=== PATIENT | female | born 1960 | race Caucasian/White ===

== ENCOUNTER 2019-12-01 12:22 | Outpatient (REF) | payer MEDICARE, MEDICAID, SELFPAY ==
[2019-12-01 14:43] LABS: Creatinine Urine 275.76 mg/dL; Microalbum/Creatinine Ratio Ur 5.4 ug/mg cr
[2019-12-01 14:52] LABS: Estimated Average Glucose 131 mg/dL; Hemoglobin A1c % 6.2 %
[2019-12-01 15:20] LABS: Alanine Aminotransferase 29 U/L (0-31); Albumin Level 4.3 g/dL (3.5-5.0); Alkaline Phosphatase 65 U/L (39-117); Anion Gap 15 (12-20); Aspartate Amino Transferase 22 U/L (5-31); Bilirubin Total 0.5 mg/dL (0.0-1.0); Blood Urea Nitrogen 18 mg/dL (9-16); Calcium 9.6 mg/dL (8.4-10.2); Carbon Dioxide 31 mmol/L (22-29); Chloride 99 mmol/L (96-108); Cholesterol 133 mg/dL; Estimated Glomerular Filt Rate > 60; Glucose Fasting 111 mg/dL (60-99); HDL Cholesterol 48 mg/dL; LDL Cholesterol Calculated 65 mg/dl; Potassium 4.5 mmol/l (3.3-5.1); Sodium 140 mmol/L (135-145); Total Protein 6.9 g/dL (6.5-8.0); Triglycerides 104 mg/dL
== END 2019-12-01 12:23 | disposition home or self-care (01) ==
LOC: HO.HMGCLDS 12:22
PROVIDERS: PCP Internal Medicine; Visit Provider Internal Medicine
DX: J45.30 Mild persistent asthma, uncomplicated (principal); E78.2 Mixed hyperlipidemia; E11.9 Type 2 diabetes mellitus without complications; I10 Essential (primary) hypertension
CPT/HCPCS: 80053; 80061; 82043; 83036

== ENCOUNTER 2020-04-15 10:51 | Outpatient (REF) | payer MEDICARE, MEDICAID, SELFPAY ==
[2020-04-15 14:28] LABS: Alanine Aminotransferase 32 U/L (0-31); Albumin Level 4.2 g/dL (3.5-5.0); Alkaline Phosphatase 63 U/L (39-117); Anion Gap 16 (12-20); Aspartate Amino Transferase 23 U/L (5-31); Bilirubin Total 0.7 mg/dL (0.0-1.0); Blood Urea Nitrogen 18 mg/dL (9-16); Calcium 9.4 mg/dL (8.4-10.2); Carbon Dioxide 28 mmol/L (22-29); Chloride 100 mmol/L (96-108); Cholesterol 149 mg/dL; Estimated Average Glucose 143 mg/dL; Estimated Glomerular Filt Rate > 60; Glucose Fasting 119 mg/dL (60-99); HDL Cholesterol 49 mg/dL; Hemoglobin A1c % 6.6 %; LDL Cholesterol Calculated 87 mg/dl; Potassium 4.8 mmol/L (3.3-5.1); Sodium 139 mmol/L (135-145); Total Protein 6.8 g/dL (6.5-8.0); Triglycerides 66 mg/dL
[2020-04-15 14:37] LABS: Creatinine Urine 250.29 mg/dL; Microalbum/Creatinine Ratio Ur 7.5 ug/mg cr
== END 2020-04-15 10:52 | disposition home or self-care (01) ==
LOC: HO.HMGCLDS 10:51
PROVIDERS: PCP Internal Medicine; Visit Provider Internal Medicine
DX: E78.5 Hyperlipidemia, unspecified (principal); E11.9 Type 2 diabetes mellitus without complications; I10 Essential (primary) hypertension
CPT/HCPCS: 36415; 80053; 80061; 82043; 83036

== ENCOUNTER 2020-10-21 13:07 | Outpatient (REF) | payer MEDICARE, MEDICAID, SELFPAY ==
[2020-10-21 14:26] LABS: Hematocrit 39.4 % (37-47); Hemoglobin 12.6 g/dl (12.0-16.0); Mean Corpuscular Hemoglobin 29.4 pg (27.0-33.0); Mean Corpuscular Volume 92.1 fL (80-98); Mean Platelet Volume 10.6 fL (9.4-12.3); Platelet Count 279 X10*3/uL (160-400); Red Blood Count 4.28 X10*6/uL (4.20-5.50); Red Cell Distribution Width 12.9 % (11.0-16.0); White Blood Count 7.7 X10*3/uL (4.8-10.8)
[2020-10-21 14:45] LABS: Creatinine Urine 147.99 mg/dL; Microalbum/Creatinine Ratio Ur 5.4 ug/mg cr
[2020-10-21 14:46] LABS: Estimated Average Glucose 131 mg/dL; Hemoglobin A1c % 6.2 %
[2020-10-21 14:54] LABS: Alanine Aminotransferase 39 U/L (0-31); Alkaline Phosphatase 63 U/L (39-117); Anion Gap 15 (12-20); Aspartate Amino Transferase 33 U/L (5-31); Bilirubin Total 0.5 mg/dL (0.0-1.0); Blood Urea Nitrogen 32 mg/dL (9-16); Calcium 9.9 mg/dL (8.4-10.2); Carbon Dioxide 29 mmol/L (22-29); Chloride 102 mmol/L (96-108); Cholesterol 112 mg/dL; Estimated Glomerular Filt Rate 55; Glucose Fasting 86 mg/dL (60-99); HDL Cholesterol 40 mg/dL; LDL Cholesterol Calculated 56 mg/dl; Potassium 4.6 mmol/L (3.3-5.1); Sodium 141 mmol/L (135-145); Total Protein 6.3 g/dL (6.5-8.0); Triglycerides 81 mg/dL
== END 2020-10-21 13:08 | disposition home or self-care (01) ==
LOC: HO.HMGCLDS 13:07
PROVIDERS: PCP Internal Medicine; Visit Provider Internal Medicine
DX: E11.9 Type 2 diabetes mellitus without complications (principal); E78.5 Hyperlipidemia, unspecified; F31.9 Bipolar disorder, unspecified; I10 Essential (primary) hypertension
CPT/HCPCS: 36415; 80053; 80061; 82043; 83036; 85027

== ENCOUNTER 2021-03-14 12:51 | Outpatient (REF) | payer MEDICARE, MEDICAID, SELFPAY ==
[2021-03-14 14:56] LABS: Estimated Average Glucose 131 mg/dL; Hemoglobin A1c % 6.2 %
[2021-03-14 14:58] LABS: Alanine Aminotransferase 25 U/L (0-31); Albumin Level 4.3 g/dL (3.5-5.0); Alkaline Phosphatase 60 U/L (39-117); Anion Gap 11 (12-20); Aspartate Amino Transferase 19 U/L (5-31); Bilirubin Total 0.7 mg/dL (0.0-1.0); Blood Urea Nitrogen 18 mg/dL (9-16); Calcium 9.9 mg/dL (8.4-10.2); Carbon Dioxide 31 mmol/L (22-29); Chloride 101 mmol/L (96-108); Cholesterol 145 mg/dL; Estimated Glomerular Filt Rate > 60; Glucose Fasting 104 mg/dL (60-99); HDL Cholesterol 48 mg/dL; LDL Cholesterol Calculated 80 mg/dl; Potassium 4.3 mmol/L (3.3-5.1); Sodium 139 mmol/L (135-145); Total Protein 6.9 g/dL (6.5-8.0); Triglycerides 89 mg/dL
[2021-03-14 15:10] LABS: Creatinine Urine 108.94 mg/dL; Microalbum/Creatinine Ratio Ur 6.4 ug/mg cr
[2021-03-14 15:23] LABS: TSH reflex Free T4 1.25 uIU/mL (0.32-4.0)
== END 2021-03-14 12:52 | disposition home or self-care (01) ==
LOC: HO.HMGCLDS 12:51
PROVIDERS: PCP Internal Medicine; Visit Provider Internal Medicine
DX: E11.9 Type 2 diabetes mellitus without complications (principal); E78.5 Hyperlipidemia, unspecified; I10 Essential (primary) hypertension
CPT/HCPCS: 36415; 80053; 80061; 82043; 83036; 84443

== ENCOUNTER 2021-08-17 12:30 | Outpatient (REF) | payer MEDICARE, MEDICAID, SELFPAY ==
[2021-08-17 13:56] LABS: Estimated Average Glucose 134 mg/dL; Hemoglobin A1c % 6.3 %
[2021-08-17 14:04] LABS: Alanine Aminotransferase 20 U/L (0-31); Alkaline Phosphatase 72 U/L (39-117); Anion Gap 12 (12-20); Aspartate Amino Transferase 13 U/L (5-31); Bilirubin Total 0.5 mg/dL (0.0-1.0); Blood Urea Nitrogen 21 mg/dL (9-16); Calcium 9.8 mg/dL (8.4-10.2); Carbon Dioxide 30 mmol/L (22-29); Chloride 102 mmol/L (96-108); Cholesterol 144 mg/dL; Estimated Glomerular Filt Rate > 60; Glucose Fasting 166 mg/dL (60-99); HDL Cholesterol 50 mg/dL; LDL Cholesterol Calculated 68 mg/dl; Potassium 4.6 mmol/L (3.3-5.1); Sodium 139 mmol/L (135-145); Total Protein 6.5 g/dL (6.5-8.0); Triglycerides 134 mg/dL
== END 2021-08-17 12:31 | disposition home or self-care (01) ==
LOC: HO.HMGCLDS 12:30
PROVIDERS: PCP Internal Medicine; Visit Provider Internal Medicine
DX: Z00.00 Encounter for general adult medical examination without abnormal findings (principal); I10 Essential (primary) hypertension; E11.9 Type 2 diabetes mellitus without complications
CPT/HCPCS: 36415; 80053; 80061; 83036

== ENCOUNTER 2022-03-28 12:46 | Outpatient (REF) | payer MEDICARE, MEDICAID, SELFPAY ==
[2022-03-28 14:03] LABS: MANUAL DIFF FLAG NO
[2022-03-28 14:12] LABS: Basophils Absolute Auto 0.1 X10*3/uL (0.0-0.2); Basophils Percent Auto 0.7 % (0-2); Eosinophils Absolute Auto 0.1 X10*3/uL (0.0-0.4); Hematocrit 43.1 % (37.0-47.0); Hemoglobin 13.9 g/dl (12.0-16.0); Imm Gran Abs Auto 0.03 X10*3/uL (0.00-0.03); Imm Gran Pct Auto 0.4 % (0.0-0.4); Lymphocytes Percent Auto 28.9 % (20-40); Mean Corpuscular HGB Conc 32.3 g/dl (31.0-35.0); Mean Corpuscular Hemoglobin 28.3 pg (27.0-33.0); Mean Corpuscular Volume 87.8 fL (80.0-98.0); Monocytes Absolute Auto 0.4 X10*3/uL (0.1-1.2); Monocytes Percent Auto 6.1 % (2-11); Neutrophils Absolute Auto 4.3 x10*3/uL (2.0-8.3); Neutrophils Percent Auto 61.9 % (45-73); Platelet Count 308 X10*3/uL (160-400); Red Blood Count 4.91 X10*6/uL (4.20-5.50); Red Cell Distribution Width 13.7 % (11.0-16.0)
[2022-03-28 14:46] LABS: Estimated Average Glucose 134 mg/dL; Hemoglobin A1c % 6.3 %
[2022-03-28 14:53] LABS: Alanine Aminotransferase 26 U/L (0-31); Alkaline Phosphatase 59 U/L (39-117); Anion Gap 18 (12-20); Aspartate Amino Transferase 16 U/L (5-31); Bilirubin Total 0.6 mg/dL (0.0-1.0); Blood Urea Nitrogen 18 mg/dL (9-16); Calcium 9.1 mg/dL (8.4-10.2); Carbon Dioxide 24 mmol/L (22-29); Chloride 105 mmol/L (96-108); Cholesterol 121 mg/dL; Estimated Glomerular Filt Rate > 60; Glucose Fasting 139 mg/dL (60-99); HDL Cholesterol 44 mg/dL; LDL Cholesterol Calculated 60 mg/dl; Sodium 143 mmol/L (135-145); Total Protein 6.2 g/dL (6.5-8.0); Triglycerides 85 mg/dL
[2022-03-28 14:55] LABS: Microalbum/Creatinine Ratio Ur 33.5 ug/mg cr
[2022-03-28 14:55] LABS: TSH reflex Free T4 1.67 uIU/mL (0.32-4.0)
== END 2022-03-28 12:47 | disposition home or self-care (01) ==
LOC: HO.HMGCLDS 12:46
PROVIDERS: Visit Provider Internal Medicine
DX: E11.9 Type 2 diabetes mellitus without complications (principal); E78.5 Hyperlipidemia, unspecified; L40.50 Arthropathic psoriasis, unspecified; I10 Essential (primary) hypertension
CPT/HCPCS: 36415; 80053; 80061; 82043; 83036; 84443; 85025

== ENCOUNTER 2022-09-25 11:05 | Outpatient (AMB) | payer MEDICARE, MEDICAID, SELFPAY ==
--- NOTE | 2022-09-25 11:08 | MHC.PC.OV ---
Vital Signs 09/25/22 11:22 Height 5 ft 3 in Weight 211 lb BMI 37.4 BP 120/78 Blood Pressure Location Lt brachial Position Sitting Pulse 80 Pulse Source Pulse Oximeter Pulse Oximetry (%) 97 Oxygen Delivery Method Room Air Intake Visit Reasons: Lower right sided, towards pelvic area pain Intake Note: Pt is here today for a sick visit. Pt c/o R side lower abdominal pain. Pt states that she knows its her hernia. Pt also needs referral to field applications specialist. Allergies amlodipine [From Norvasc] Allergy (Unknown, Verified 09/25/22 11:25) Anaphylaxis chlorthalidone Allergy (Unknown, Verified 09/25/22 11:25) Anaphylaxis doxycycline Allergy (Unknown, Verified 09/25/22 11:25) Anaphylaxis erythromycin base Allergy (Unknown, Verified 09/25/22 11:25) Anaphylaxis loracarbef [From Lorabid] Allergy (Unknown, Verified 09/25/22 11:25) Anaphylaxis prednisone Allergy (Unknown, Verified 09/25/22 11:25) manic Sulfa (Sulfonamide Antibiotics) Allergy (Unknown, Verified 09/25/22 11:25) anaphylaxis sulfamethoxazole [From Bactrim] Allergy (Unknown, Verified 09/25/22 11:25) Anaphylaxis trimethoprim [From Bactrim] Allergy (Unknown, Verified 09/25/22 11:25) Anaphylaxis Lorabid Allergy (Unknown, Uncoded 09/25/22 11:25) anaphylaxis Medication List - Last Reconciled 09/25/22 by Almaz Billy MD albuterol sulfate 90 mcg/actuation 2 puffs inhalation Q6H PRN atorvastatin 40 mg PO DAILY betamethasone, augmented 0.05 % topical buspirone mg PO cetirizine 10 mg PO DAILY PRN clonazepam mg PO duloxetine 60 mg PO BID gabapentin 600 mg PO BID hydrochlorothiazide 25 mg PO DAILY linagliptin (Tradjenta) 5 mg PO DAILY metformin 1,000 mg (2 x 500 mg) PO BID olmesartan 40 mg PO DAILY omeprazole 20 mg PO BID secukinumab 150 mg subcut .2 times a month tizanidine 4 mg PO TID PRN tolterodine ER mg PO Tobacco use date assessed: 09/25/22 Fall risk assessment: No Falls in past year Last assessed Fall Risk: 09/25/22 Dental Screening Dental Screen Date: 09/25/22 Did you have a dental visit in the last 12 months?: Yes Did you have a dental problem in the last 6 months where you did not have access to dental care?: No Was dental information given to patient?: Patient has dentist HPI Lower right sided, towards pelvic area pain HPI Details Pt presents for f/u DM2, HTN, hyperlipid, stable on meds. Pt had bladder suspension surgery in 07/03. Pt c/o 2nd toe's dorsum pain, swelling and not healing well since June. Pt reports worse when walking. Patient complains of right inguinal area pain and bulging when lifting or bending forward. She would like to see a surgeon to evaluate for hernia. [facility] Medical History Annual physical exam Bipolar disorder Diabetes Exercise-induced asthma Fall Fatty liver HTN (hypertension) Hyperlipemia IBS (irritable bowel syndrome) Mammogram normal Neuropathy Obesity Psoriatic arthritis Surgical History H/O colonoscopy History of esophagogastroduodenoscopy (EGD) History of total abdominal hysterectomy Hx of cholecystectomy Family History (Updated 09/25/22 @ 11:29 by Justina Hull [facility]) Father No problems noted. Mother No problems noted. Sister No problems noted. Sister No problems noted. Son No problems noted. Son No problems noted. Daughter No problems noted. Social History Housing: House Alcohol intake: current Alcohol intake frequency: holidays/special occasions only Patient Tobacco Use Status: Never used Tobacco e-Cigarette/Vaping Use: Never Used Current occupational status: disabled Cognitive needs: No Hearing needs: No Vision needs: Yes Questionnaire Thrive Questionnaire Date Thrive assessed: 04/02/22 KRISH-7 AMB Questionnaire KRISH-7 Date KRISH - 7 assessed: 04/02/22 Source: Developed by Drs. Chemo Sterling, Kathryn Carey, Santi Watson and colleagues, with an educational miguel from [employer] Review of Systems Const All systems reviewed & are unremarkable except as noted in HPI and below Reports no additional complaints Eyes Reports no additional complaints ENT Reports no additional complaints Card Reports no additional complaints Resp Reports no additional complaints GI Reports no additional complaints Reports no additional complaints Physical exam (Primary Care) Vital Signs: Last Vital Signs Pulse 80 09/25/22 11:22 BP 120/78 09/25/22 11:22 Pulse Ox 97 09/25/22 11:22 Oxygen Delivery Method Room Air 09/25/22 11:22 BMI result Body Mass Index 37.4 Tobacco/Smoking Status: Tobacco use Status Tobacco use date assessed 09/25/22 09/25/22 11:30 Patient Tobacco Use Status Never used Tobacco 09/25/22 11:08 e-Cigarette/Vaping Use Never Used 09/25/22 11:08 Thrive Assessment: Date of Thrive Assessment Date Thrive assessed 04/02/22 09/25/22 11:08 Const General: no acute distress HENMT Head: Yes normal to inspection Throat: Yes posterior oropharynx normal Eyes General: appearance normal, both eyes and all related structures Neck Neck: Yes no lymphadenopathy and Yes supple Resp Effort & Inspection: normal respiratory effort Auscultation: clear to auscultation bilaterally Cardio Rhythm: regular rhythm Heart sounds: S1 normal heart sound present and S2 normal heart sound present GI Other: Right inguinal area slight tenderness and bulging, fully reducible Inspection: Yes normal to inspection Palpation (GI): Soft to palpation Percussion: Yes normal to percussion Auscultation: normal bowel sounds Extrem Other: Left 2nd toe dorsal area with small superficial callus, no erythema warmth or bleeding Assessment and Plan Assessment & Plan (1) Inguinal hernia of right side without obstruction or gangrene: Code(s): K40.90 - Unilateral inguinal hernia, without obstruction or gangrene, not specified as recurrent Plan: Referred to surgery (2) Hyperlipemia: Code(s): E78.5 - Hyperlipidemia, unspecified Plan: Continue statin, return for fasting labs and follow-up visit in the past (3) HTN (hypertension): Comment: BP less than 130/80 Code(s): I10 - Essential (primary) hypertension Plan: cont meds (4) Diabetes: Comment: A1C less than 7 Code(s): E11.9 - Type 2 diabetes mellitus without complications (5) Toe pain, left: Comment: 2 nd toe Code(s): M79.675 - Pain in left toe(s) Plan: Check foot x-ray and supportive care discussed with the patient Orders: Referrals General Surgery Referral K40.90 - Unilateral inguinal hernia, without obstruction or gangrene, not specified as recurrent Coding Level of Care Code Est Pt Level 4 (12073) Diagnoses Inguinal hernia of right side without obstruction or gangrene K40.90 Hyperlipemia E78.5 HTN (hypertension) I10 Diabetes E11.9 Toe pain, left M79.675
[2022-09-25 11:22] VITALS: BP 120/78; PULSE 80; O2SAT 97; BMI 37.4
== END 2022-09-25 12:30 | disposition home or self-care (01) ==
PROVIDERS: PCP Internal Medicine; Visit Provider Internal Medicine
DX: K40.90 Unilateral inguinal hernia, without obstruction or gangrene, not specified as recurrent (principal); E78.5 Hyperlipidemia, unspecified; I10 Essential (primary) hypertension; E11.9 Type 2 diabetes mellitus without complications; M79.675 Pain in left toe(s)
CPT/HCPCS: 99214

== ENCOUNTER 2022-09-25 12:02 | Outpatient (REF) | payer MEDICARE, MEDICAID, SELFPAY ==
--- NOTE | ~2022-09-25 | XR_ITS ---
EXAMINATION: XR FOOT, LEFT CLINICAL INFORMATION: Left toe pain. COMPARISON: None available. TECHNIQUE: AP, lateral, and oblique views of the left foot. FINDINGS: No acute fracture or dislocation. Prominent joint space narrowing with marginal osteophytes at the medial cuneonavicular joint. Mild joint space narrowing with small marginal osteophytes at the first metatarsophalangeal joint and hallux sesamoids. No osseous erosion. No fracture or dislocation. Tiny plantar and dorsal calcaneal enthesophytes. Circumferential soft tissue swelling. XR/XR foot LT min 3V IMPRESSION: 1. Circumferential soft tissue swelling without acute fracture or dislocation. 2. Moderate degenerative arthritis at the medial cuneonavicular joint. More mild degenerative arthritis at the first metatarsophalangeal joint and hallux sesamoids. 3. Tiny plantar and dorsal calcaneal spurs.
== END 2022-09-25 12:03 | disposition home or self-care (01) ==
LOC: HO.HMGCX 12:02
PROVIDERS: PCP Internal Medicine; Visit Provider Internal Medicine
DX: M79.675 Pain in left toe(s) (principal)
CPT/HCPCS: 73630

== ENCOUNTER 2022-10-16 10:14 | Outpatient (AMB) | payer MEDICARE, MEDICAID, SELFPAY ==
--- NOTE | 2022-10-16 10:16 | MHC.OFFVIS ---
Intake Vital Signs 10/16/22 10:21 Height 5 ft 2 in Weight 206 lb BMI 37.7 BP 133/82 Blood Pressure Location Rt brachial Position Sitting Pulse 102 H Intake Visit Reasons: Unilateral Inguinal hernia Intake Note: Patient referred by PCP Dr. Billy for Unilateral inguinal hernia. Reports hx of 3 previous hernia repairs. Currently hernia on Rt lowr abd. Becoming tender when sitting on floor with grand children. First hernia surgery at age 5. Pathology Laboratory Technologist Required: No Accompanied by: Self / Same As Patient Allergies amlodipine [From Norvasc] Allergy (Unknown, Verified 09/25/22 11:25) Anaphylaxis chlorthalidone Allergy (Unknown, Verified 09/25/22 11:25) Anaphylaxis doxycycline Allergy (Unknown, Verified 09/25/22 11:25) Anaphylaxis erythromycin base Allergy (Unknown, Verified 09/25/22 11:25) Anaphylaxis loracarbef [From Lorabid] Allergy (Unknown, Verified 09/25/22 11:25) Anaphylaxis prednisone Allergy (Unknown, Verified 09/25/22 11:25) manic Sulfa (Sulfonamide Antibiotics) Allergy (Unknown, Verified 09/25/22 11:25) anaphylaxis sulfamethoxazole [From Bactrim] Allergy (Unknown, Verified 09/25/22 11:25) Anaphylaxis trimethoprim [From Bactrim] Allergy (Unknown, Verified 09/25/22 11:25) Anaphylaxis Lorabid Allergy (Unknown, Uncoded 09/25/22 11:25) anaphylaxis HPI HPI Comments History of Present Illness Details Patient presents for evaluation of right groin pain and question hernia. She has had these symptoms for over 1 year's time. She is otherwise tolerating a diet. She has irritable bowel syndrome. Past surgical history PD hernia right. Left inguinal hernia approximately 30 years ago Chart was reviewed and patient evaluated [facility] Medical History Annual physical exam Bipolar disorder Diabetes Exercise-induced asthma Fall Fatty liver HTN (hypertension) Hyperlipemia IBS (irritable bowel syndrome) Mammogram normal Neuropathy Obesity Psoriatic arthritis Surgical History H/O colonoscopy History of esophagogastroduodenoscopy (EGD) History of total abdominal hysterectomy Hx of cholecystectomy Family History Father No problems noted. Mother No problems noted. Sister No problems noted. Sister No problems noted. Son No problems noted. Son No problems noted. Daughter No problems noted. Social History Housing: House Alcohol intake: current Alcohol intake frequency: holidays/special occasions only Patient Tobacco Use Status: Never used Tobacco e-Cigarette/Vaping Use: Never Used Current occupational status: disabled Cognitive needs: No Hearing needs: No Vision needs: Yes Physical Exam Vital Signs: Last Vital Signs Pulse 102 H 10/16/22 10:21 BP 133/82 10/16/22 10:21 BMI result Body Mass Index 37.7 Chest Other: Chest breath sounds bilaterally, HS 1 in 2 GI Other: Patient was examined both supine and standing with Valsalva. Very corpulent abdomen. Quite large pannus. Left groin negative. Right groin difficult exam. Question of a femoral hernia. Assessment & Plan Assessment & Plan (1) Right groin pain: Code(s): R10.31 - Right lower quadrant pain Plan Because of a difficult groin exam secondary to the patient's corpulent, the current plan syringe for CT scan abdomen pelvis to evaluate for right femoral hernia. Further interventions and studies will be directed by the results of the above-mentioned scan. All questions were answered. Arrangements were made for this. Coding Level of Care Code New Pt Level 4 (73616) Diagnoses Right groin pain R10.31
[2022-10-16 10:21] VITALS: BP 133/82; PULSE 102; BMI 37.7
== END 2022-10-16 10:44 | disposition home or self-care (01) ==
PROVIDERS: PCP Internal Medicine; Referring Provider Internal Medicine; Visit Provider Surgery
DX: R10.31 Right lower quadrant pain (principal)
CPT/HCPCS: 99204

== ENCOUNTER → 2022-10-16 10:14 | Outpatient (BNVA) | payer MEDICARE, MEDICAID, SELFPAY | PROVIDERS: PCP Internal Medicine; Referring Provider Internal Medicine; Visit Provider Surgery | DX: R10.31 Right lower quadrant pain (principal) | CPT/HCPCS: 99202 ==

== ENCOUNTER 2022-11-08 16:30 | Outpatient (REF) | payer MEDICARE, MEDICAID, SELFPAY ==
[2022-11-08 18:35] LABS: Blood Urea Nitrogen 19 mg/dL (9-16); Estimated Glomerular Filt Rate 58
== END 2022-11-08 16:31 | disposition home or self-care (01) ==
LOC: HO.LAB 16:30
PROVIDERS: PCP Internal Medicine; Visit Provider Surgery
DX: R10.31 Right lower quadrant pain (principal); K40.90 Unilateral inguinal hernia, without obstruction or gangrene, not specified as recurrent
CPT/HCPCS: 36415; 82565; 84520

== ENCOUNTER 2022-11-14 13:57 | Outpatient (REF) | payer MEDICARE, MEDICAID, SELFPAY ==
[2022-11-14] MEDS: Barium Sulfate Oral (Mocha) 450 ML ORAL.SUSP 900 ML PO (16:23)
[2022-11-14] MEDS: iohexoL 350 MG/ML 100 ML INFUS..BTL IV (16:23)
== END 2022-11-14 13:58 | disposition home or self-care (01) ==
LOC: HO.CT 13:57
PROVIDERS: PCP Internal Medicine; Visit Provider Surgery
DX: K40.90 Unilateral inguinal hernia, without obstruction or gangrene, not specified as recurrent (principal)
CPT/HCPCS: 74177; Q9967

== ENCOUNTER 2022-11-21 11:42 | Outpatient (AMB) | payer MEDICARE, MEDICAID, SELFPAY ==
[2022-11-21 11:48] VITALS: BP 135/85; PULSE 83; BMI 38.2
--- NOTE | 2022-11-21 11:48 | MHC.OFFVIS ---
Intake Vital Signs 11/21/22 11:48 Height 5 ft 2 in Weight 209 lb BMI 38.2 BP 135/85 Blood Pressure Location Rt brachial Position Sitting Pulse 83 Intake Visit Reasons: femoral hernia, CT results Intake Note: Patient here to discuss Abd CT scan results. Portfolio Strategist Required: No Accompanied by: Self / Same As Patient Allergies amlodipine [From Norvasc] Allergy (Unknown, Verified 11/21/22 11:49) Anaphylaxis chlorthalidone Allergy (Unknown, Verified 11/21/22 11:49) Anaphylaxis doxycycline Allergy (Unknown, Verified 11/21/22 11:49) Anaphylaxis erythromycin base Allergy (Unknown, Verified 11/21/22 11:49) Anaphylaxis loracarbef [From Lorabid] Allergy (Unknown, Verified 11/21/22 11:49) Anaphylaxis prednisone Allergy (Unknown, Verified 11/21/22 11:49) manic Sulfa (Sulfonamide Antibiotics) Allergy (Unknown, Verified 11/21/22 11:49) anaphylaxis sulfamethoxazole [From Bactrim] Allergy (Unknown, Verified 11/21/22 11:49) Anaphylaxis trimethoprim [From Bactrim] Allergy (Unknown, Verified 11/21/22 11:49) Anaphylaxis Lorabid Allergy (Unknown, Uncoded 11/21/22 11:49) anaphylaxis HPI HPI Comments History of Present Illness Details Patient presents for follow-up. She still has persistent right inner groin pain when doing strenuous activities and excessive bending. CT scan demonstrated no obvious right groin hernias. Incidental finding of left small fat containing inguinal hernia. Patient has had progression of her symptoms. Is impacting her activities and lifestyle. [facility] Medical History Fall Annual physical exam IBS (irritable bowel syndrome) Mammogram normal Fatty liver Bipolar disorder Exercise-induced asthma Hyperlipemia HTN (hypertension) Neuropathy Obesity Diabetes Psoriatic arthritis Surgical History H/O colonoscopy History of esophagogastroduodenoscopy (EGD) Hx of cholecystectomy History of total abdominal hysterectomy Family History Father No problems noted. Mother No problems noted. Sister No problems noted. Sister No problems noted. Son No problems noted. Son No problems noted. Daughter No problems noted. Social History Housing: House Alcohol intake: current Alcohol intake frequency: holidays/special occasions only Patient Tobacco Use Status: Never used Tobacco e-Cigarette/Vaping Use: Never Used Current occupational status: disabled Cognitive needs: No Hearing needs: No Vision needs: Yes Physical Exam Vital Signs: Last Vital Signs Pulse 83 11/21/22 11:48 BP 135/85 11/21/22 11:48 BMI result Body Mass Index 38.2 Chest Other: Chest breath sounds bilaterally, HS 1 in 2 GI Other: Corpulent abdomen. Soft. Groin exam is most noteworthy for marked tenderness over the right femoral canal. Assessment & Plan Assessment & Plan (1) Right groin pain: Code(s): R10.31 - Right lower quadrant pain Plan I discussed the patient that she indeed may have a femoral hernia. This may not have shown up on the CT scan since he was supine during the study. In combination of her progression of symptoms and tenderness over the right femoral canal, recommendation is to undergo right groin exploration and repair open technique with mesh of right femoral hernia. Risks, benefits, alternatives of the procedure were reviewed with the patient, and included but not limited to bleeding, infection, recurrence, numbness, pain, scarring and the patient wishes to proceed. All questions were answered. Arrangements will be made for this. Coding Level of Care Code Est Pt Level 5 (73495) Diagnoses Right groin pain R10.31
== END 2022-11-21 12:11 | disposition home or self-care (01) ==
PROVIDERS: PCP Internal Medicine; Visit Provider Surgery
DX: R10.31 Right lower quadrant pain (principal)
CPT/HCPCS: 99214

== ENCOUNTER → 2022-11-21 11:42 | Outpatient (BNVA) | payer MEDICARE, MEDICAID, SELFPAY | PROVIDERS: PCP Internal Medicine; Visit Provider Surgery | DX: R10.31 Right lower quadrant pain (principal) | CPT/HCPCS: 99212 ==

== ENCOUNTER 2022-11-28 08:41 | Day surgery (SDC) | payer MEDICARE, MEDICAID, SELFPAY ==
--- NOTE | 2022-11-27 10:40 | HO.ANESPROP2 ---
Documented by User: Sugey Mason NP 11/27/22 10:42 HPI - Anesthesia Eval Consult details Narrative: 62yo F for Right Hernia Open Repair Femoral w/mesh Anaphylactic rxn to mulitple meds PMFSH Active Problems Active Problems: All Active Problems (Updated 09/25/22 @ 12:00 by Almaz Billy MD) Right groin pain (Acute) Inguinal hernia of right side without obstruction or gangrene (Acute) Toe pain, left (Acute) Upper respiratory tract infection (Acute) Psoriatic arthritis (Acute) Fall (Acute) Annual physical exam (Acute) Bipolar disorder (Acute) IBS (irritable bowel syndrome) (Acute) Hyperlipemia (Acute) HTN (hypertension) (Acute) Diabetes (Acute) Mammogram normal (Acute) Past Medical History Medical History Asthma Fall Annual physical exam IBS (irritable bowel syndrome) Mammogram normal Fatty liver Bipolar disorder Exercise-induced asthma Hyperlipemia HTN (hypertension) Neuropathy Obesity Diabetes Psoriatic arthritis Family History Family History Father No problems noted. Mother No problems noted. Sister No problems noted. Sister No problems noted. Son No problems noted. Son No problems noted. Daughter No problems noted. Surgical History Surgical History History of bladder surgery H/O colonoscopy History of esophagogastroduodenoscopy (EGD) Hx of cholecystectomy History of total abdominal hysterectomy Social History Housing: House Alcohol intake: current Alcohol intake frequency: holidays/special occasions only Patient Tobacco Use Status: Former Tobacco user e-Cigarette/Vaping Use: Never Used Current occupational status: disabled Cognitive needs: No Hearing needs: No Vision needs: Yes Meds Allergies Allergy/AdvReac Type Severity Reaction Status Date / Time amlodipine [From Norvasc] Allergy Unknown Anaphylaxis Verified 12/04/22 13:09 chlorthalidone Allergy Unknown Anaphylaxis Verified 12/04/22 13:09 doxycycline Allergy Unknown Anaphylaxis Verified 12/04/22 13:09 erythromycin base Allergy Unknown Anaphylaxis Verified 12/04/22 13:09 loracarbef [From Lorabid] Allergy Unknown Anaphylaxis Verified 12/04/22 13:09 prednisone Allergy Unknown manic Verified 12/04/22 13:09 Sulfa (Sulfonamide Allergy Unknown anaphylaxis Verified 12/04/22 13:09 Antibiotics) sulfamethoxazole Allergy Unknown Anaphylaxis Verified 12/04/22 13:09 [From Bactrim] trimethoprim [From Bactrim] Allergy Unknown Anaphylaxis Verified 12/04/22 13:09 Lorabid Allergy Unknown anaphylaxis Uncoded 12/04/22 13:09 Home Medications Medication Instructions Recorded Confirmed Last Taken Type betamethasone, augmented 0.05 % topical 12/10/19 09/25/22 Unknown History topical ointment buspirone 15 mg tablet mg PO 12/10/19 09/25/22 Unknown History clonazepam 1 mg tablet mg PO 12/10/19 09/25/22 Unknown History secukinumab 150 mg/mL subcutaneous 150 mg subcut .2 times a month 09/25/21 09/25/22 Unknown History pen injector duloxetine 30 mg capsule,delayed 60 mg PO BID 04/02/22 09/25/22 Unknown History release Exam Exam Date and Time: November 27, 2022 1040 Pertinent Lab Results Pertinent Lab Results: Laboratory Tests 03/28/22 03/28/22 11/08/22 12:52 12:52 16:38 WBC 7.0 Hgb 13.9 Hct 43.1 Plt Count 308 Sodium 143 Potassium 4.0 Chloride 105 Carbon Dioxide 24 BUN 19 H Creatinine 0.97 Assessment and Plan Assessment Anesthesia Assessment: Chart Reviewed Documented by User: Jack Jesus MD 01/03/23 18:49 PMFSH Past Medical History Medical History Asthma Fall Annual physical exam IBS (irritable bowel syndrome) Mammogram normal Fatty liver Bipolar disorder Exercise-induced asthma Hyperlipemia HTN (hypertension) Neuropathy Obesity Diabetes Psoriatic arthritis Functional capacity: independent ambulation Family History Family History Father No problems noted. Mother No problems noted. Sister No problems noted. Sister No problems noted. Son No problems noted. Son No problems noted. Daughter No problems noted. Family history of problems with anesthesia: No Surgical History Surgical History History of bladder surgery H/O colonoscopy History of esophagogastroduodenoscopy (EGD) Hx of cholecystectomy History of total abdominal hysterectomy History of Problems with Anesthesia: No Social History Housing: House Alcohol intake: current Alcohol intake frequency: holidays/special occasions only Patient Tobacco Use Status: Former Tobacco user e-Cigarette/Vaping Use: Never Used Current occupational status: disabled Cognitive needs: No Hearing needs: No Vision needs: Yes Meds Allergies Allergy/AdvReac Type Severity Reaction Status Date / Time amlodipine [From Norvasc] Allergy Unknown Anaphylaxis Verified 12/04/22 13:09 chlorthalidone Allergy Unknown Anaphylaxis Verified 12/04/22 13:09 doxycycline Allergy Unknown Anaphylaxis Verified 12/04/22 13:09 erythromycin base Allergy Unknown Anaphylaxis Verified 12/04/22 13:09 loracarbef [From Lorabid] Allergy Unknown Anaphylaxis Verified 12/04/22 13:09 prednisone Allergy Unknown manic Verified 12/04/22 13:09 Sulfa (Sulfonamide Allergy Unknown anaphylaxis Verified 12/04/22 13:09 Antibiotics) sulfamethoxazole Allergy Unknown Anaphylaxis Verified 12/04/22 13:09 [From Bactrim] trimethoprim [From Bactrim] Allergy Unknown Anaphylaxis Verified 12/04/22 13:09 Lorabid Allergy Unknown anaphylaxis Uncoded 12/04/22 13:09 Home Medications Medication Instructions Recorded Confirmed Last Taken Type betamethasone, augmented 0.05 % topical 12/10/19 09/25/22 Unknown History topical ointment buspirone 15 mg tablet mg PO 12/10/19 09/25/22 Unknown History clonazepam 1 mg tablet mg PO 12/10/19 09/25/22 Unknown History secukinumab 150 mg/mL subcutaneous 150 mg subcut .2 times a month 09/25/21 09/25/22 Unknown History pen injector duloxetine 30 mg capsule,delayed 60 mg PO BID 04/02/22 09/25/22 Unknown History release Exam Airway Mallampati Class: III Loose/Missing/Broken Teeth: Yes Assessment and Plan Assessment Anesthesia Assessment: Anesthesia Plan Discussed Final Anesthetic Review Family History of Problems with Anesthesia: No History of Problems with Anesthesia: No NPO: Yes ASA Class: III Final Preanesthetic Review: Meds/Allgs Chart Reviewed, Consent Obtained/Reviewed and Anes Risks/Benef Reviewed Patient Risk: Intermediate Procedure Risk: Intermediate Anesthetic Plan Anesthetic Plan: GA and Agree w/ Assess. and Plan Disposition: Standard PACU
--- NOTE | 2022-11-27 14:31 | MHC.SHP ---
Pre-Procedural Eval Section A Date of Service: 11/27/22 The patient is an INPATIENT: No Changes since office visit: No Cold of Flu in the past 2 weeks, No New Medical Problems, No Changes in Medication and No Patient answered all questions The History & Physical has been completed within 30 days and I have reviewed it.: Yes Section B Chief Complaint: Right lower quadrant pain Allergies: Allergies Allergy/AdvReac Type Severity Reaction Status Date / Time amlodipine [From Norvasc] Allergy Unknown Anaphylaxis Verified 11/21/22 11:49 chlorthalidone Allergy Unknown Anaphylaxis Verified 11/21/22 11:49 doxycycline Allergy Unknown Anaphylaxis Verified 11/21/22 11:49 erythromycin base Allergy Unknown Anaphylaxis Verified 11/21/22 11:49 loracarbef [From Lorabid] Allergy Unknown Anaphylaxis Verified 11/21/22 11:49 prednisone Allergy Unknown manic Verified 11/21/22 11:49 Sulfa (Sulfonamide Allergy Unknown anaphylaxis Verified 11/21/22 11:49 Antibiotics) sulfamethoxazole Allergy Unknown Anaphylaxis Verified 11/21/22 11:49 [From Bactrim] trimethoprim [From Bactrim] Allergy Unknown Anaphylaxis Verified 11/21/22 11:49 Lorabid Allergy Unknown anaphylaxis Uncoded 11/21/22 11:49 Plan I have reviewed the history and physical and performed a pertinent physical examination on my patient. No changes have occurred unless specified. Time Spent With Patient Time: Total time managing care of this patient today ____ minutes.
[2022-11-28] VITALS (12 sets, daily range): BP systolic 134–157; BP diastolic 69–98; PULSE 61–87; RESP 16–18; TEMP 36.1–37.1; O2SAT 94–100; BMI 37.2
[2022-11-28] MEDS: Lactated Ringers 1,000 ML 100 ML IVCONT (09:59)
[2022-11-28 10:03] LABS: Glucose, Whole Blood 130 mg/dL (60-115)
--- NOTE | 2022-11-28 12:02 | P.OP_ITS ---
Operative Note Operative Note Date of Service: 11/28/22 Narrative: Preoperative diagnosis: [] right femoral hernia Postop diagnosis: [] right inguinal hernia Procedure [] right inguinal herniorrhaphy open with Bard mesh Surgeon: [] Tolu Rn [facility]: [] [facility] Type of Anesthesia: [] general Indication for surgery: [] Extremely corpulent abdomen and groin. Symptomatic right groin pain and swelling. No femoral hernia was demonstrated. A direct right inguinal hernia was found on inguinal canal exploration. Findings: [] Patient brought to the operating room, placed on operative table supine position, after adequate level of general anesthesia was induced, the patient's right groin area was prepped and draped in usual sterile fashion. Patient had a very large pannus Draping over the right groin. A small right para-.inguinal incision was made and carried down through skin, subcutaneous tissue, Zia's fascia and significant Pannus. Exploration of the femoral canal area demonstrated no hernia. inguinal herniotomy was then performed, which demonstrated a direct inguinal hernia. No indirect hernia was Found. A Bard mesh was placed in the direct defect, and sutured inferiorly to the inguinal ligament and superiorly to the transversalis fascia using int errupted 0 Ethibond suture. A completion procedure, mesh was in good position with no gaps in no tension. Wounds irrigated, secured hemostasis. This closed in the following manner; external oblique fascia was closed using running 2-0 Vicryl suture. Zia's fascia was reapproximated using interrupted 3-0 Vicryl sutures. Interrupted inverted deep dermal 3-0 Vicryl sutures followed by running subcuticular 4-0 Vicryl suture placed. Steri-Strips and sterile dressings were applied. Wound was infiltrated with 0.5% Marcaine/ 1% lidocaine at completion. Sponge, needle, instrument counts reported correct. Patient tolerated the procedure well emerged anesthesia in stable condition. EBL minimal
[2022-11-28] MEDS: Acetaminophen 325 MG TABLET 650 MG PO (12:43)
[2022-11-28] MEDS: oxyCODONE HCl Immed Release 5 MG TABLET PO (12:43)
[2022-11-28] MEDS: HYDROmorphone HCl 0.5 MG/0.5 ML SYRINGE 0.25 MG IVPUSH ×2 (12:50→13:00)
== END 2022-11-28 14:11 | disposition home or self-care (01) ==
PROVIDERS: PCP Internal Medicine; Visit Provider Surgery
PROC: (CPT 49550; principal; 2022-11-28 10:20)
DX: K40.90 Unilateral inguinal hernia, without obstruction or gangrene, not specified as recurrent (principal); E65 Localized adiposity; K58.9 Irritable bowel syndrome, unspecified; K76.0 Fatty (change of) liver, not elsewhere classified; I10 Essential (primary) hypertension; E11.9 Type 2 diabetes mellitus without complications; E78.5 Hyperlipidemia, unspecified; L40.50 Arthropathic psoriasis, unspecified; J45.990 Exercise induced bronchospasm; J45.909 Unspecified asthma, uncomplicated; Z79.899 Other long term (current) drug therapy; Z88.1 Allergy status to other antibiotic agents; Z88.2 Allergy status to sulfonamides; Z88.8 Allergy status to other drugs, medicaments and biological substances; Z87.891 Personal history of nicotine dependence; Z98.890 Other specified postprocedural states
CPT/HCPCS: 49505; 82947; C1781; J1100; J1170; J2250; J2405; J2795

== ENCOUNTER → 2022-11-28 08:41 | Outpatient (BNV) | payer MEDICARE, MEDICAID, SELFPAY | PROVIDERS: PCP Internal Medicine; Visit Provider Surgery | DX: K40.90 Unilateral inguinal hernia, without obstruction or gangrene, not specified as recurrent (principal) | CPT/HCPCS: 49505 ==

== ENCOUNTER 2022-12-04 12:54 | Outpatient (AMB) | payer MEDICARE, MEDICAID, SELFPAY ==
--- NOTE | 2022-12-04 13:02 | MHC.OFFVIS ---
Intake Vital Signs 12/04/22 13:03 Weight 208 lb BP 165/94 H Blood Pressure Location Rt brachial Position Sitting Pulse 99 Intake Visit Reasons: S/P R ventral hernia repair Intake Note: Patient here s/p Rt ventral hernia repair. Incisions healing well. Having difficulty sleeping on back. Used to sleeping on stomach. Taking rx pain meds as needed. Single Stroke Preformer Required: No Accompanied by: Self / Same As Patient Allergies amlodipine [From Norvasc] Allergy (Unknown, Verified 12/04/22 13:09) Anaphylaxis chlorthalidone Allergy (Unknown, Verified 12/04/22 13:09) Anaphylaxis doxycycline Allergy (Unknown, Verified 12/04/22 13:09) Anaphylaxis erythromycin base Allergy (Unknown, Verified 12/04/22 13:09) Anaphylaxis loracarbef [From Lorabid] Allergy (Unknown, Verified 12/04/22 13:09) Anaphylaxis prednisone Allergy (Unknown, Verified 12/04/22 13:09) manic Sulfa (Sulfonamide Antibiotics) Allergy (Unknown, Verified 12/04/22 13:09) anaphylaxis sulfamethoxazole [From Bactrim] Allergy (Unknown, Verified 12/04/22 13:09) Anaphylaxis trimethoprim [From Bactrim] Allergy (Unknown, Verified 12/04/22 13:09) Anaphylaxis Lorabid Allergy (Unknown, Uncoded 12/04/22 13:09) anaphylaxis Medication List - Last Reconciled 12/04/22 by Harman Motley MD albuterol sulfate 90 mcg/actuation 2 puffs inhalation Q6H PRN atorvastatin 40 mg PO DAILY betamethasone, augmented 0.05 % topical buspirone mg PO cetirizine 10 mg PO DAILY PRN clonazepam mg PO duloxetine 60 mg PO BID gabapentin 600 mg PO BID hydrochlorothiazide 25 mg PO DAILY hydrocodone-acetaminophen 5-325 mg 1 tab PO Q4-6H PRN linagliptin (Tradjenta) 5 mg PO DAILY metformin 1,000 mg (2 x 500 mg) PO BID olmesartan 40 mg PO DAILY omeprazole 20 mg PO BID secukinumab 150 mg subcut .2 times a month tizanidine 4 mg PO TID PRN HPI HPI Comments History of Present Illness Details Patient presents for follow-up status post right groin hernia repair. Aside from incisional discomfort patient is doing well. She has time diet. She is having regular bowel habits. She is slowly but steadily increasing her activity level. [facility] Medical History Asthma Fall Annual physical exam IBS (irritable bowel syndrome) Mammogram normal Fatty liver Bipolar disorder Exercise-induced asthma Hyperlipemia HTN (hypertension) Neuropathy Obesity Diabetes Psoriatic arthritis Surgical History History of bladder surgery H/O colonoscopy History of esophagogastroduodenoscopy (EGD) Hx of cholecystectomy History of total abdominal hysterectomy Family History Father No problems noted. Mother No problems noted. Sister No problems noted. Sister No problems noted. Son No problems noted. Son No problems noted. Daughter No problems noted. Social History Housing: House Alcohol intake: current Alcohol intake frequency: holidays/special occasions only Patient Tobacco Use Status: Former Tobacco user e-Cigarette/Vaping Use: Never Used Current occupational status: disabled Cognitive needs: No Hearing needs: No Vision needs: Yes Physical Exam Vital Signs: Last Vital Signs Pulse 99 12/04/22 13:03 BP 165/94 H 12/04/22 13:03 GI Other: Abdomen soft. Wound clean dry and intact Assessment & Plan Assessment & Plan (1) Inguinal hernia of right side without obstruction or gangrene: Code(s): K40.90 - Unilateral inguinal hernia, without obstruction or gangrene, not specified as recurrent Plan Patient has been given local instructions, renewal analgesics, and will follow-up p.r.n.. Medications: New hydrocodone-acetaminophen 5-325 mg Partial Fill upon patient request. 1 tab PO Q4-6H PRN 30 tabs 0RF pain Coding Level of Care Code Global (51754) Diagnoses Inguinal hernia of right side without obstruction or gangrene K40.90
[2022-12-04 13:03] VITALS: BP 165/94; PULSE 99
== END 2022-12-04 13:27 | disposition home or self-care (01) ==
PROVIDERS: PCP Internal Medicine; Visit Provider Surgery
DX: K40.90 Unilateral inguinal hernia, without obstruction or gangrene, not specified as recurrent (principal)
CPT/HCPCS: 99024

== ENCOUNTER → 2022-12-04 12:54 | Outpatient (BNVA) | payer MEDICARE, MEDICAID, SELFPAY | PROVIDERS: PCP Internal Medicine; Visit Provider Surgery ==

== ENCOUNTER 2023-03-06 10:25 | Outpatient (REF) | payer MEDICARE, MEDICAID, SELFPAY ==
[2023-03-06 13:37] LABS: MANUAL DIFF FLAG NO
[2023-03-06 14:03] LABS: Basophils Absolute Auto 0.1 X10*3/uL (0.0-0.2); Basophils Percent Auto 0.9 % (0-2); Eosinophils Absolute Auto 0.4 X10*3/uL (0.0-0.4); Eosinophils Percent Auto 4.9 % (0-4); Hematocrit 36.9 % (37.0-47.0); Hemoglobin 11.4 g/dl (12.0-16.0); Imm Gran Abs Auto 0.02 X10*3/uL (0.00-0.03); Imm Gran Pct Auto 0.2 % (0.0-0.4); Lymphocytes Absolute Auto 2.1 X10*3/uL (1.2-4.9); Lymphocytes Percent Auto 25.7 % (20-40); Mean Corpuscular HGB Conc 30.9 g/dl (31.0-35.0); Mean Corpuscular Hemoglobin 27.9 pg (27.0-33.0); Mean Corpuscular Volume 90.2 fL (80.0-98.0); Mean Platelet Volume 10.1 fL (9.4-12.3); Monocytes Absolute Auto 0.6 X10*3/uL (0.1-1.2); Monocytes Percent Auto 6.7 % (2-11); Neutrophils Percent Auto 61.6 % (45-73); Platelet Count 394 X10*3/uL (160-400); Red Blood Count 4.09 X10*6/uL (4.20-5.50); White Blood Count 8.2 X10*3/uL (4.8-10.8)
[2023-03-06 14:20] LABS: Alanine Aminotransferase 18 U/L (0-31); Albumin Level 3.7 g/dL (3.5-5.0); Alkaline Phosphatase 67 U/L (39-117); Anion Gap 14 (12-20); Aspartate Amino Transferase 20 U/L (5-31); Bilirubin Total 0.3 mg/dL (0.0-1.0); Blood Urea Nitrogen 22 mg/dL (9-16); Calcium 9.4 mg/dL (8.4-10.2); Carbon Dioxide 27 mmol/L (22-29); Chloride 100 mmol/L (96-108); Cholesterol 114 mg/dL (<200); Estimated Glomerular Filt Rate > 60; Glucose Fasting 123 mg/dL (60-99); HDL Cholesterol 43 mg/dL (>40); LDL Cholesterol Calculated 56 mg/dL (<100); Potassium 3.9 mmol/L (3.3-5.1); Sodium 137 mmol/L (135-145); Total Protein 6.6 g/dL (6.5-8.0); Triglycerides 77 mg/dL (<150)
[2023-03-06 14:25] LABS: Estimated Average Glucose 131 mg/dL; Hemoglobin A1c % 6.2 % (<6.0)
[2023-03-06 14:31] LABS: Creatinine Urine 261.55 mg/dL; Microalbum/Creatinine Ratio Ur 4.9 ug/mg cr (<30)
[2023-03-06 14:36] LABS: TSH reflex Free T4 1.75 uIU/mL (0.32-4.0)
== END 2023-03-06 10:26 | disposition home or self-care (01) ==
LOC: HO.HMGCLDS 10:25
PROVIDERS: PCP Internal Medicine; Visit Provider Internal Medicine
DX: E78.5 Hyperlipidemia, unspecified (principal); I10 Essential (primary) hypertension; E11.9 Type 2 diabetes mellitus without complications
CPT/HCPCS: 36415; 80053; 80061; 82043; 82570; 83036; 84443; 85025

== ENCOUNTER 2023-03-14 13:11 | Outpatient (AMB) | payer MEDICARE, MEDICAID, SELFPAY ==
[2023-03-14 13:13] VITALS: BP 125/78; PULSE 102; O2SAT 97; BMI 36.1
--- NOTE | 2023-03-14 13:13 | MHC.PC.OV ---
Vital Signs 03/14/23 13:13 Height 5 ft 3 in Weight 204 lb BMI 36.1 BP 125/78 Blood Pressure Location Lt brachial Position Sitting Pulse 102 H Pulse Source Pulse Oximeter Pulse Oximetry (%) 97 Oxygen Delivery Method Room Air Intake Visit Reasons: Annual PE Intake Note: Pt is here today for PE. Allergies amlodipine [From Norvasc] Allergy (Unknown, Verified 03/14/23 13:17) Anaphylaxis chlorthalidone Allergy (Unknown, Verified 03/14/23 13:17) Anaphylaxis doxycycline Allergy (Unknown, Verified 03/14/23 13:17) Anaphylaxis erythromycin base Allergy (Unknown, Verified 03/14/23 13:17) Anaphylaxis loracarbef [From Lorabid] Allergy (Unknown, Verified 03/14/23 13:17) Anaphylaxis prednisone Allergy (Unknown, Verified 03/14/23 13:17) manic Sulfa (Sulfonamide Antibiotics) Allergy (Unknown, Verified 03/14/23 13:17) anaphylaxis sulfamethoxazole [From Bactrim] Allergy (Unknown, Verified 03/14/23 13:17) Anaphylaxis trimethoprim [From Bactrim] Allergy (Unknown, Verified 03/14/23 13:17) Anaphylaxis Lorabid Allergy (Unknown, Uncoded 03/14/23 13:17) anaphylaxis Medication List - Last Reconciled 03/14/23 by Almaz Billy MD albuterol sulfate 90 mcg/actuation 2 puffs inhalation Q6H PRN atorvastatin 40 mg PO DAILY betamethasone, augmented 0.05 % topical buspirone mg PO cetirizine 10 mg PO DAILY PRN clonazepam 2 tablets a day duloxetine 60 mg PO DAILY gabapentin 600 mg PO BID hydrochlorothiazide 25 mg PO DAILY hydrocodone-acetaminophen 5-325 mg 1 tab PO Q4-6H PRN hydrocodone-acetaminophen 5-325 mg 1 tab PO Q4-6H PRN metformin 1,000 mg (2 x 500 mg) PO BID olmesartan 40 mg PO DAILY omeprazole 20 mg PO BID secukinumab 150 mg subcut .2 times a month semaglutide (Ozempic) 0.25 mg (0.368 mL) subcut QWEEK tizanidine 4 mg PO TID PRN Tobacco use date assessed: 03/14/23 Fall risk assessment: No Falls in past year Last assessed Fall Risk: 03/14/23 Dental Screening Dental Screen Date: 03/14/23 Did you have a dental visit in the last 12 months?: Yes Did you have a dental problem in the last 6 months where you did not have access to dental care?: No Was dental information given to patient?: Patient has dentist HPI Annual PE HPI Details Pt presents for PE. She follows up with psychiatrist for bipolar disorder. Patient has been under lot of stress related to her and sons and follows up therapist. REPLACED BY [facility] Medical History (Updated 03/14/23 @ 13:45 by Almaz Billy MD) Asthma Fall Annual physical exam IBS (irritable bowel syndrome) Mammogram normal Fatty liver Bipolar disorder Exercise-induced asthma Hyperlipemia HTN (hypertension) Neuropathy Obesity Diabetes Psoriatic arthritis Surgical History History of bladder surgery H/O colonoscopy History of esophagogastroduodenoscopy (EGD) Hx of cholecystectomy History of total abdominal hysterectomy Family History Father No problems noted. Mother No problems noted. Sister No problems noted. Sister No problems noted. Son Mental health disorder Substance use disorder Son No problems noted. Daughter No problems noted. Social History Housing: House Alcohol intake: current Alcohol intake frequency: holidays/special occasions only Patient Tobacco Use Status: Former Tobacco user e-Cigarette/Vaping Use: Never Used Current occupational status: disabled Cognitive needs: No Hearing needs: No Vision needs: Yes Questionnaire Thrive Questionnaire Date Thrive assessed: 04/02/22 AUDIT C Alcohol Use Questionnaire (AUDIT-C) 1. How often do you have a drink containing alcohol?: Never 3. How often do you have six or more drinks on one occasion?: Never Total Score: 0 KRIHS-7 AMB Questionnaire KRISH-7 Date KRISH - 7 assessed: 04/02/22 Source: Developed by Drs. Chemo Sterling, Kathryn Carey, Santi Watson and colleagues, with an educational miguel from [employer]. Review of Systems Const All systems reviewed & are unremarkable except as noted in HPI and below Reports no additional complaints Eyes Reports no additional complaints ENT Reports no additional complaints Card Reports no additional complaints Resp Reports no additional complaints GI Reports no additional complaints Reports no additional complaints Physical exam (Primary Care) Vital Signs: Last Vital Signs Pulse 102 H 03/14/23 13:13 BP 142/96 H 03/14/23 13:13 Pulse Ox 97 03/14/23 13:13 Oxygen Delivery Method Room Air 03/14/23 13:13 BMI result Body Mass Index 36.1 Tobacco/Smoking Status: Tobacco use Status Tobacco use date assessed 03/14/23 03/14/23 13:30 Patient Tobacco Use Status Former Tobacco user 03/14/23 13:16 e-Cigarette/Vaping Use Never Used 03/14/23 13:16 Thrive Assessment: Date of Thrive Assessment Date Thrive assessed 04/02/22 03/14/23 13:16 Const General: no acute distress HENMT Head: Yes normal to inspection Throat: Yes posterior oropharynx normal Neck Neck: Yes no lymphadenopathy and Yes supple Resp Effort & Inspection: normal respiratory effort Auscultation: clear to auscultation bilaterally Cardio Rhythm: regular rhythm Heart sounds: S1 normal heart sound present and S2 normal heart sound present GI Inspection: Yes normal to inspection Palpation (GI): Soft to palpation Percussion: Yes normal to percussion Auscultation: normal bowel sounds Assessment and Plan Assessment & Plan (1) Annual physical exam: Code(s): Z00.00 - Encounter for general adult medical examination without abnormal findings Plan: well balanced diet, exercise, weight loss discussed, patient is up-to-date with mammogram and colonoscopy (2) Bipolar disorder: Comment: f/u psychiatry Code(s): F31.9 - Bipolar disorder, unspecified Plan: f/u psychiatry (3) HTN (hypertension): Comment: BP less than 130/80 Code(s): I10 - Essential (primary) hypertension Plan: cont meds (4) Hyperlipemia: Code(s): E78.5 - Hyperlipidemia, unspecified Plan: cont statin (5) Diabetes: Comment: A1C less than 7 Code(s): E11.9 - Type 2 diabetes mellitus without complications Plan: A1C 6.2. ADA diet increase exercise weight loss discussed with the patient. Ozempic 0.25 weekly for the 1st week then increase to 0.5 mg weekly will be started and Tradjenta will be discontinued. Patient was advised to continue metformin. Patient will follow-up in 3 months with a fasting labs before Orders: Orders Complete Blood Count Auto Diff 3 Months E11.9 - Type 2 diabetes mellitus without complications, E78.5 - Hyperlipidemia, unspecified, I10 - Essential (primary) hypertension Hemoglobin A1c 3 Months E11.9 - Type 2 diabetes mellitus without complications, E78.5 - Hyperlipidemia, unspecified, I10 - Essential (primary) hypertension Microalbumin, Random (w Creat) 3 Months E11.9 - Type 2 diabetes mellitus without complications, E78.5 - Hyperlipidemia, unspecified, I10 - Essential (primary) hypertension Comprehensive [place]. Panel Fast 3 Months E11.9 - Type 2 diabetes mellitus without complications, E78.5 - Hyperlipidemia, unspecified, I10 - Essential (primary) hypertension Lipid Panel 3 Months E11.9 - Type 2 diabetes mellitus without complications, E78.5 - Hyperlipidemia, unspecified, I10 - Essential (primary) hypertension Medications: New semaglutide (Ozempic) for 4 weeks, then 0.5 mg weekly 0.25 mg (0.368 mL) subcut QWEEK 9 mL 1RF budesonide-formoterol 80-4.5 mcg/actuation (Symbicort) 2 puffs inhalation BID 10.2 grams 3RF Discontinued linagliptin (Tradjenta) Discontinued Reason: Doctor's Order 5 mg PO DAILY 90 tabs 3RF Coding Level of Care Code Est Pt Prev Care 40-64y(53833) Diagnoses Annual physical exam Z00.00 Bipolar disorder F31.9 HTN (hypertension) I10 Hyperlipemia E78.5 Diabetes E11.9
== END 2023-03-14 15:43 | disposition home or self-care (01) ==
PROVIDERS: PCP Internal Medicine; Visit Provider Internal Medicine
DX: Z00.00 Encounter for general adult medical examination without abnormal findings (principal); F31.9 Bipolar disorder, unspecified; E11.69 Type 2 diabetes mellitus with other specified complication; I10 Essential (primary) hypertension; E78.5 Hyperlipidemia, unspecified
CPT/HCPCS: 99396

== ENCOUNTER 2023-03-20 14:01 | Outpatient (AMB) | payer MEDICARE, MEDICAID, SELFPAY ==
[2023-03-20 14:06] VITALS: BP 130/70; PULSE 80; TEMP 36.3; O2SAT 96; BMI 35.2
--- NOTE | 2023-03-20 14:06 | AM.OFFWIN_ITS ---
Intake Vital Signs 03/20/23 14:06 Height 5 ft 3 in Weight 199 lb BMI 35.2 BP 130/70 Blood Pressure Location Lt brachial Position Sitting Pulse 80 Pulse Source Pulse Oximeter Temp 97.3 F Temp Source Temporal Artery Scan Pulse Oximetry (%) 96 Oxygen Delivery Method Room Air Intake Visit Reasons: EP mucous bronchitis body aches (lobby) Intake Note: pt is here today for mucous bronchitis body aches started 03/14 Patient Tobacco Use Status: Former Tobacco user Allergies amlodipine [From Norvasc] Allergy (Unknown, Verified 03/20/23 14:12) Anaphylaxis chlorthalidone Allergy (Unknown, Verified 03/20/23 14:12) Anaphylaxis doxycycline Allergy (Unknown, Verified 03/20/23 14:12) Anaphylaxis erythromycin base Allergy (Unknown, Verified 03/20/23 14:12) Anaphylaxis loracarbef [From Lorabid] Allergy (Unknown, Verified 03/20/23 14:12) Anaphylaxis prednisone Allergy (Unknown, Verified 03/20/23 14:12) manic Sulfa (Sulfonamide Antibiotics) Allergy (Unknown, Verified 03/20/23 14:12) anaphylaxis sulfamethoxazole [From Bactrim] Allergy (Unknown, Verified 03/20/23 14:12) Anaphylaxis trimethoprim [From Bactrim] Allergy (Unknown, Verified 03/20/23 14:12) Anaphylaxis Lorabid Allergy (Unknown, Uncoded 03/14/23 13:17) anaphylaxis Do you need a note to return to daycare/school/sports/work: No HPI HPI Comments History of Present Illness Details This is a 62-year-old female with a past medical history of hypertension, hyperlipidemia, diabetes, asthma and bipolar disorder presenting for evaluation of fatigue, body aches and a cough that she has had for the past 5 days. Patient reports feeling feverish but denies having any otalgia, sore throat, chest pain or shortness of breath. Patient states both her and her son have been diagnosed with COVID-19 in the past one week. Patient states that she tested herself at home and the test was positive. [facility] Medical History Asthma Fall Annual physical exam IBS (irritable bowel syndrome) Mammogram normal Fatty liver Bipolar disorder Exercise-induced asthma Hyperlipemia HTN (hypertension) Neuropathy Obesity Diabetes Psoriatic arthritis Surgical History History of bladder surgery H/O colonoscopy History of esophagogastroduodenoscopy (EGD) Hx of cholecystectomy History of total abdominal hysterectomy Family History Father No problems noted. Mother No problems noted. Sister No problems noted. Sister No problems noted. Son Mental health disorder Substance use disorder Son No problems noted. Daughter No problems noted. Social History Housing: House Alcohol intake: current Alcohol intake frequency: holidays/special occasions only Patient Tobacco Use Status: Former Tobacco user e-Cigarette/Vaping Use: Never Used Current occupational status: disabled Cognitive needs: No Hearing needs: No Vision needs: Yes Review of Systems Const Denies chills, Reports fatigue and Reports fever(s) (Subjective) Eyes Reports no additional complaints ENT Reports no additional complaints, Denies otalgia, Reports nasal congestion, Reports nasal discharge, Reports sinus pressure and Denies sore throat Card Reports no additional complaints and Denies dyspnea Resp Reports cough, Denies dyspnea and Denies wheezing Psych Reports no additional complaints Endo Reports fatigue Aller/Immun Denies wheezing Physical Exam Const General: cooperative, comfortable and well developed; No ill appearing Nutritional Appearance: overweight Orientation/consciousness: patient oriented x3 Limitations: no limitations HEENT Head: Yes normal to inspection and Yes normocephalic Ears: hearing grossly normal bilaterally, external ears normal, TM's normal bilaterally and EAC's normal General nose exam: Normal external nose present Face and sinus: Yes normal facial exam Mouth: Normal oral and palatal mucosa present Throat: Yes posterior oropharynx normal and No postnasal drainage Eyes Eyelids: Yes eyelids normal Conjunctivae: conjunctivae normal Sclerae: sclerae normal Corneas: corneas normal Pupils: Equal, round and reactive pupils present EOM: EOMs intact bilaterally Neck Lymphatic: no lymphadenopathy noted Resp Effort & Inspection: normal respiratory effort, able to speak in complete sentences, no audible wheezes, no cough and no respiratory distress Auscultation: clear to auscultation bilaterally Cardio Rate: regular rate Rhythm: regular rhythm Skin General skin exam: no rashes or lesions noted Neuro General: patient oriented x3 Cranial nerves: Yes Equal, round and reactive pupils present Psych Appearance: grossly normal Mental Status: mental status grossly normal Affect: Anxious affect present Attitude: cooperative Insight: Good insight present (Psych) Judgement: Good judgement present (Psych) Assessment & Plan Assessment & Plan (1) Cough: Comment: Patient is not hypoxic or tachypneic. Patient has not been using her albuterol with an increased frequency. SARS panel ordered and pending. Code(s): R05.9 - Cough, unspecified Qualifiers: Cough type: acute Qualified Code(s): R05.1 - Acute cough Plan: Tylenol or ibuprofen as needed if fevers recur, increase clear fluids daily and OTC cough syrup such as Delsym as needed. Orders: Orders SARS-CoV2/FLU/RSV Today R05.9 - Cough, unspecified Coding Level of Care Code Est Pt Level 3 (08988) Diagnoses Acute cough R05.1 Cough type: acute Time Spent (min) 20
== END 2023-03-20 15:03 | disposition home or self-care (01) ==
PROVIDERS: PCP Internal Medicine; Visit Provider Physician Assistant
DX: R05.1 Acute cough (principal)
CPT/HCPCS: 99213

== ENCOUNTER 2023-03-20 16:14 | Outpatient (REF) | payer MEDICARE, MEDICAID, SELFPAY ==
[2023-03-20 17:01] LABS: Influenza A PCR NEGATIVE (Negative); Influenza B PCR NEGATIVE (Negative); Resp Syncy Virus RNA Qual PCR NEGATIVE (Negative); SARS COV2 PCR INHOUSE POSITIVE (Negative)
== END 2023-03-20 16:15 | disposition home or self-care (01) ==
LOC: HO.HMGCLNP 16:14
PROVIDERS: Visit Provider Physician Assistant
DX: Z11.52 Encounter for screening for COVID-19 (principal); Z20.822 Contact with and (suspected) exposure to COVID-19; R05.9 Cough, unspecified
CPT/HCPCS: 0241U

== ENCOUNTER 2023-03-29 15:38 | Outpatient (AMB) | payer MEDICARE, MEDICAID, SELFPAY ==
--- NOTE | 2023-03-29 15:55 | AM.OFFWIN_ITS ---
Intake Vital Signs 03/29/23 15:56 Height 5 ft 3 in Weight 201 lb BMI 35.6 BP 110/60 Blood Pressure Location Rt brachial Position Sitting Pulse 105 H Pulse Source Pulse Oximeter Temp 99.0 F Temp Source Oral Pulse Oximetry (%) 94 Oxygen Delivery Method Room Air Intake Visit Reasons: EST/cough and congestion (lobby) Patient Tobacco Use Status: Former Tobacco user Allergies amlodipine [From Norvasc] Allergy (Unknown, Verified 03/20/23 14:12) Anaphylaxis chlorthalidone Allergy (Unknown, Verified 03/20/23 14:12) Anaphylaxis doxycycline Allergy (Unknown, Verified 03/20/23 14:12) Anaphylaxis erythromycin base Allergy (Unknown, Verified 03/20/23 14:12) Anaphylaxis loracarbef [From Lorabid] Allergy (Unknown, Verified 03/20/23 14:12) Anaphylaxis prednisone Allergy (Unknown, Verified 03/20/23 14:12) manic Sulfa (Sulfonamide Antibiotics) Allergy (Unknown, Verified 03/20/23 14:12) anaphylaxis sulfamethoxazole [From Bactrim] Allergy (Unknown, Verified 03/20/23 14:12) Anaphylaxis trimethoprim [From Bactrim] Allergy (Unknown, Verified 03/20/23 14:12) Anaphylaxis Lorabid Allergy (Unknown, Uncoded 03/14/23 13:17) anaphylaxis HPI HPI Comments History of Present Illness Details This is a 62-year-old female with past medical history significant for mild persistent asthma, essential hypertension, hyperlipidemia, and dxx-[id number] diabetes mellitus who presented to the walk-in clinic today complaining of a persistent viral URI symptoms x 2 weeks. Patient states she had a primary care appointment on 03/14/2023 and she was feeling well that time. She then started to develop viral URI symptoms such as a dry cough, nasal/sinus congestion, and rhinorrhea. She states she tested positive for COVID-19 at that time. She was then evaluated at the walk-in on 03/20/2023 and they recommended symptomatic management. Patient states she is still having a very severe and persistent cough, which has now become productive with green- yellow sputum. She also has significant nasal/sinus congestion with clear/yellow nasal drainage. She has low-grade fever/chills. She reports mild shortness of breath and wheezing mostly at nighttime. [facility] Medical History Asthma Fall Annual physical exam IBS (irritable bowel syndrome) Mammogram normal Fatty liver Bipolar disorder Exercise-induced asthma Hyperlipemia HTN (hypertension) Neuropathy Obesity Diabetes Psoriatic arthritis Surgical History History of bladder surgery H/O colonoscopy History of esophagogastroduodenoscopy (EGD) Hx of cholecystectomy History of total abdominal hysterectomy Family History Father No problems noted. Mother No problems noted. Sister No problems noted. Sister No problems noted. Son Mental health disorder Substance use disorder Son No problems noted. Daughter No problems noted. Social History Housing: House Alcohol intake: current Alcohol intake frequency: holidays/special occasions only Patient Tobacco Use Status: Former Tobacco user e-Cigarette/Vaping Use: Never Used Current occupational status: disabled Cognitive needs: No Hearing needs: No Vision needs: Yes Review of Systems Const All systems reviewed & are unremarkable except as noted in HPI and below Reports no additional complaints Eyes Reports no additional complaints ENT Reports no additional complaints Card Reports no additional complaints Resp Reports no additional complaints GI Reports no additional complaints Reports no additional complaints Musc Reports no additional complaints Skin/Breast Reports system reviewed and no additional complaints, except as documented Neuro Reports no additional complaints Psych Reports no additional complaints Endo Reports no additional complaints Feng/Lymph Reports no additional complaints Aller/Immun Reports no additional complaints Physical Exam Vital Signs: Last Vital Signs Temp 99.0 F 03/29/23 15:56 Pulse 105 H 03/29/23 15:56 BP 110/60 03/29/23 15:56 Pulse Ox 94 03/29/23 15:56 Oxygen Delivery Method Room Air 03/29/23 15:56 BMI result Body Mass Index 35.6 Const Other: Vital signs reviewed. Constitutional: Non-toxic appearing. No acute distress. Well-developed and well-nourished. HEENT: Normocephalic and atraumatic. Skin: Warm and dry. No rashes or lesions noted. Neck: Full and painless range of motion. No cervical lymphadenopathy. Cardio: Regular rate and rhythm. No murmurs, gallops, or rubs. No lower extremity edema. No JVD. Pulmonary: No respiratory distress. No accessory muscle usage. There is scattered rhonchi and expiratory wheezing. She has a frequent raspy/junky cough. Gastrointestinal: Soft, nontender, and nondistended in all 4 quadrants. Musculoskeletal: Normal range of motion in joints throughout the body. No deformity or other signs of injury. Neuro: Alert and oriented x4. Cranial nerves 2-12 grossly intact. No focal deficits appreciated. Psych: Patient is extremely anxious and tearful. Assessment & Plan Assessment & Plan (1) Acute bronchitis: Code(s): J20.9 - Acute bronchitis, unspecified Plan: This is a 62-year-old female with past medical history significant for mild persistent asthma, essential hypertension, hyperlipidemia, mtz-edesswf-jjzfrpcpu diabetes mellitus, bipolar disorder who presented to the walk-in clinic complaining of a persistent/worsening cough productive of yellow-green sputum as well as persistent/worsening nasal/sinus congestion/rhinorrhea with green/yellow nasal drainage in the setting fo COVID-19. On physical examination, the patient has scattered expiratory wheezing and scattered rhonchi as well as a frequent junky cough. Her history and physical appear to be consistent with an acute bronchitis versus post viral pneumonia versus atypical pneumonia. Patient was sent home on prednisone, azithromycin, and benzonatate as needed for cough. Recommended symptomatic management including miev-uhm-onndxso guaifenesin for mucolytic treatment, humidifier at bedtime, and acetaminophen/ibuprofen for pain/fevers as long as she has no medical contraindications. Patient does have a history of diabetes mellitus and she was educated on the signs of hyperglycemia as steroids can increase her blood sugar. She also has a history of bipolar disorder and states that prednisone has made her manic in the past; however, she is now on mood stabilizers and states that her manic symptoms have improved. She follows closely with a psychiatrist as well as her primary care physician. Patient was extremely appreciative of the help and compassionate listening provided to her today. Medications: New prednisone Take 4 tablets daily x2 days 3 tablets daily x 2 days followed by 2 tablets daily x 2 days followed by 1 tablet daily x 2days 10 mg PO DIRECTED 20 tabs 0RF azithromycin For 250 mg dose pack: take 500 mg today (day 1), then 250 mg for 4 days (days 2-5) PO 6 tabs 0RF benzonatate 200 mg PO TID PRN 14 caps 0RF cough Coding Level of Care Code Est Pt Level 3 (78635) Diagnoses Acute bronchitis J20.9
[2023-03-29 15:56] VITALS: BP 110/60; PULSE 105; TEMP 37.2; O2SAT 94; BMI 35.6
== END 2023-03-29 16:38 | disposition home or self-care (01) ==
PROVIDERS: PCP Internal Medicine; Visit Provider Physician Assistant Medical
DX: J20.9 Acute bronchitis, unspecified (principal)
CPT/HCPCS: 99213

== ENCOUNTER 2023-04-10 10:52 | Outpatient (AMB) | payer MEDICARE, MEDICAID, SELFPAY ==
[2023-04-10 11:18] VITALS: BP 120/78; PULSE 97; TEMP 36.5; O2SAT 99; BMI 36.3
--- NOTE | 2023-04-10 11:18 | AM.OFFWIN_ITS ---
Intake Vital Signs 04/10/23 11:18 Height 5 ft 3 in Weight 205 lb BMI 36.3 BP 120/78 Blood Pressure Location Lt brachial Position Sitting Pulse 97 Pulse Source Pulse Oximeter Temp 97.7 F Temp Source Temporal Artery Scan Pulse Oximetry (%) 99 Oxygen Delivery Method Room Air Intake Visit Reasons: EP Asthma cough few weeks Intake Note: pt is here today for asthma cough started few weeks ago Patient Tobacco Use Status: Former Tobacco user Allergies amlodipine [From Norvasc] Allergy (Unknown, Verified 04/10/23 11:19) Anaphylaxis chlorthalidone Allergy (Unknown, Verified 04/10/23 11:19) Anaphylaxis doxycycline Allergy (Unknown, Verified 04/10/23 11:19) Anaphylaxis erythromycin base Allergy (Unknown, Verified 04/10/23 11:19) Anaphylaxis loracarbef [From Lorabid] Allergy (Unknown, Verified 04/10/23 11:19) Anaphylaxis prednisone Allergy (Unknown, Verified 04/10/23 11:19) manic Sulfa (Sulfonamide Antibiotics) Allergy (Unknown, Verified 04/10/23 11:19) anaphylaxis sulfamethoxazole [From Bactrim] Allergy (Unknown, Verified 04/10/23 11:19) Anaphylaxis trimethoprim [From Bactrim] Allergy (Unknown, Verified 04/10/23 11:19) Anaphylaxis Lorabid Allergy (Unknown, Uncoded 03/14/23 13:17) anaphylaxis Do you need a note to return to daycare/school/sports/work: No HPI HPI Comments History of Present Illness Details 62 y/o female patient who presents to [facility] in clinic with c/o cough. Had COVID 1 month ago and feels like she is not getting any better. Pt was given Zpack and Benzona 1 week ago. [facility] Medical History Asthma Fall Annual physical exam IBS (irritable bowel syndrome) Mammogram normal Fatty liver Bipolar disorder Exercise-induced asthma Hyperlipemia HTN (hypertension) Neuropathy Obesity Diabetes Psoriatic arthritis Surgical History History of bladder surgery H/O colonoscopy History of esophagogastroduodenoscopy (EGD) Hx of cholecystectomy History of total abdominal hysterectomy Family History Father No problems noted. Mother No problems noted. Sister No problems noted. Sister No problems noted. Son Mental health disorder Substance use disorder Son No problems noted. Daughter No problems noted. Social History Housing: House Alcohol intake: current Alcohol intake frequency: holidays/special occasions only Patient Tobacco Use Status: Former Tobacco user e-Cigarette/Vaping Use: Never Used Current occupational status: disabled Cognitive needs: No Hearing needs: No Vision needs: Yes Review of Systems Const All systems reviewed & are unremarkable except as noted in HPI and below Physical Exam Vital Signs: Last Vital Signs Temp 97.7 F 04/10/23 11:18 Pulse 97 04/10/23 11:18 BP 120/78 04/10/23 11:18 Pulse Ox 99 04/10/23 11:18 Oxygen Delivery Method Room Air 04/10/23 11:18 BMI result Body Mass Index 36.3 Const General: comfortable and no acute distress HEENT Head: Yes normocephalic Ears: external ears normal and TM's normal bilaterally General nose exam: Normal nasal mucous membranes and turbinates present Face and sinus: Yes sinuses nontender Resp Effort & Inspection: normal respiratory effort, able to speak in complete se ntences and Actively coughing Auscultation: clear to auscultation bilaterally, no crackles, no rales, no rhonchi and no wheezes Cardio Rate: regular rate Rhythm: regular rhythm Assessment & Plan Assessment & Plan (1) Cough in adult: Code(s): R05.9 - Cough, unspecified Plan: - Advised Pt to go to ED for more evaluation. Coding Level of Care Code Est Pt Level 3 (78065) Diagnoses Cough in adult R05.9 Time Spent (min) 15
== END 2023-04-10 13:03 | disposition home or self-care (01) ==
PROVIDERS: PCP Internal Medicine; Visit Provider Nurse Practitioner Family
DX: R05.9 Cough, unspecified (principal)
CPT/HCPCS: 99213

== ENCOUNTER 2023-04-13 12:01 | Outpatient (REF) | payer MEDICARE, MEDICAID, SELFPAY ==
--- NOTE | ~2023-04-13 | XR_ITS ---
EXAMINATION: XR CHEST 2 VIEW CLINICAL INFORMATION: Acute cough COMPARISON: 01/16/2017 TECHNIQUE: PA and lateral views of the chest obtained. FINDINGS: The lungs are clear. There are no pleural effusions. The cardiomediastinal silhouette is normal. XR/XR chest 2V IMPRESSION: No acute cardiopulmonary disease.
== END 2023-04-13 12:02 | disposition home or self-care (01) ==
LOC: HO.HMGCX 12:01
PROVIDERS: Visit Provider Nurse Practitioner Family
DX: R05.1 Acute cough (principal)
CPT/HCPCS: 71046

== ENCOUNTER 2023-06-07 13:58 | Outpatient (REF) | payer MEDICARE, MEDICAID, SELFPAY ==
[2023-06-07 16:17] LABS: MANUAL DIFF FLAG NO
[2023-06-07 16:23] LABS: Basophils Percent Auto 0.3 % (0-2); Eosinophils Absolute Auto 0.9 X10*3/uL (0.0-0.4); Eosinophils Percent Auto 9.1 % (0-4); Hematocrit 45.7 % (37.0-47.0); Hemoglobin 14.6 g/dl (12.0-16.0); Imm Gran Abs Auto 0.02 X10*3/uL (0.00-0.03); Imm Gran Pct Auto 0.2 % (0.0-0.4); Lymphocytes Absolute Auto 2.2 X10*3/uL (1.2-4.9); Lymphocytes Percent Auto 21.8 % (20-40); Mean Corpuscular HGB Conc 31.9 g/dl (31.0-35.0); Mean Corpuscular Hemoglobin 27.9 pg (27.0-33.0); Mean Corpuscular Volume 87.2 fL (80.0-98.0); Mean Platelet Volume 10.6 fL (9.4-12.3); Monocytes Absolute Auto 0.5 X10*3/uL (0.1-1.2); Monocytes Percent Auto 5.1 % (2-11); Neutrophils Absolute Auto 6.3 x10*3/uL (2.0-8.3); Neutrophils Percent Auto 63.5 % (45-73); Platelet Count 347 X10*3/uL (160-400); Red Blood Count 5.24 X10*6/uL (4.20-5.50); Red Cell Distribution Width 14.6 % (11.0-16.0)
[2023-06-07 16:34] LABS: Estimated Average Glucose 143 mg/dL; Hemoglobin A1c % 6.6 % (<6.0)
[2023-06-07 16:47] LABS: Alanine Aminotransferase 20 U/L (0-31); Albumin Level 4.2 g/dL (3.5-5.0); Alkaline Phosphatase 59 U/L (39-117); Anion Gap 17 (12-20); Aspartate Amino Transferase 16 U/L (5-31); Bilirubin Total 0.6 mg/dL (0.0-1.0); Blood Urea Nitrogen 24 mg/dL (9-16); Calcium 10.3 mg/dL (8.4-10.2); Carbon Dioxide 25 mmol/L (22-29); Chloride 104 mmol/L (96-108); Cholesterol 95 mg/dL (<200); Estimated Glomerular Filt Rate > 60; Glucose Fasting 118 mg/dL (60-99); HDL Cholesterol 32 mg/dL (>40); LDL Cholesterol Calculated 42 mg/dL (<100); Potassium 4.2 mmol/L (3.3-5.1); Sodium 142 mmol/L (135-145); Total Protein 6.9 g/dL (6.5-8.0); Triglycerides 106 mg/dL (<150)
[2023-06-07 16:50] LABS: Microalbum/Creatinine Ratio Ur 8.4 ug/mg cr (<30)
== END 2023-06-07 13:59 | disposition home or self-care (01) ==
LOC: HO.HMGCLDS 13:58
PROVIDERS: PCP Internal Medicine; Visit Provider Internal Medicine
DX: E11.9 Type 2 diabetes mellitus without complications (principal); E78.5 Hyperlipidemia, unspecified; I10 Essential (primary) hypertension
CPT/HCPCS: 36415; 80053; 80061; 82043; 82570; 83036; 85025

== ENCOUNTER 2023-06-12 12:27 | Outpatient (AMB) | payer MEDICARE, MEDICAID, SELFPAY ==
[2023-06-12 12:42] VITALS: BP 112/78; PULSE 90; O2SAT 98; BMI 32.9
--- NOTE | 2023-06-12 12:42 | MHC.PC.OV ---
Vital Signs 06/12/23 12:42 Height 5 ft 3 in Weight 186 lb BMI 32.9 BP 112/78 Blood Pressure Location Lt brachial Position Sitting Pulse 90 Pulse Source Pulse Oximeter Pulse Oximetry (%) 98 Oxygen Delivery Method Room Air Intake Visit Reasons: 3 Month follow up Allergies amlodipine [From Norvasc] Allergy (Unknown, Verified 06/12/23 12:51) Anaphylaxis chlorthalidone Allergy (Unknown, Verified 06/12/23 12:51) Anaphylaxis doxycycline Allergy (Unknown, Verified 06/12/23 12:51) Anaphylaxis erythromycin base Allergy (Unknown, Verified 06/12/23 12:51) Anaphylaxis loracarbef [From Lorabid] Allergy (Unknown, Verified 06/12/23 12:51) Anaphylaxis prednisone Allergy (Unknown, Verified 06/12/23 12:51) manic Sulfa (Sulfonamide Antibiotics) Allergy (Unknown, Verified 06/12/23 12:51) anaphylaxis sulfamethoxazole [From Bactrim] Allergy (Unknown, Verified 06/12/23 12:51) Anaphylaxis trimethoprim [From Bactrim] Allergy (Unknown, Verified 06/12/23 12:51) Anaphylaxis Lorabid Allergy (Unknown, Uncoded 06/12/23 12:51) anaphylaxis Medication List - Last Reconciled 06/12/23 by Almaz Billy MD albuterol sulfate 0.63 mg (3 mL) inhalation Q6H albuterol sulfate 90 mcg/actuation 2 puffs inhalation Q6H PRN atorvastatin 40 mg PO DAILY budesonide-formoterol 80-4.5 mcg/actuation (Symbicort) 2 puffs inhalation BID buspirone mg PO cetirizine 10 mg PO DAILY PRN clonazepam 2 tablets a day duloxetine 60 mg PO DAILY gabapentin 600 mg PO BID hydrochlorothiazide 25 mg PO DAILY meloxicam 7.5 mg PO DAILY metformin 1,000 mg (2 x 500 mg) PO BID nebulizers Nebulizer and supplies olmesartan 40 mg PO DAILY omeprazole 20 mg PO BID promethazine-codeine 6.25-10 mg/5 mL 5 mL PO Q6H PRN 7 days secukinumab 150 mg subcut .2 times a month semaglutide (Ozempic) 0.25 mg (0.368 mL) subcut QWEEK tizanidine 4 mg PO TID PRN Tobacco use date assessed: 03/14/23 Dental Screening Dental Screen Date: 03/14/23 HPI 3 Month follow up HPI Details Pt presents for f/u DM 2, hyperlipidemia hypertension chronic anxiety and depression established with psychiatrist. [facility] Medical History (Updated 06/12/23 @ 15:34 by Almaz Billy MD) Asthma Fall Annual physical exam IBS (irritable bowel syndrome) Mammogram normal Fatty liver Bipolar disorder Exercise-induced asthma Hyperlipemia HTN (hypertension) Neuropathy Obesity Diabetes Psoriatic arthritis Surgical History History of bladder surgery H/O colonoscopy History of esophagogastroduodenoscopy (EGD) Hx of cholecystectomy History of total abdominal hysterectomy Family History Father No problems noted. Mother No problems noted. Sister No problems noted. Sister No problems noted. Son Mental health disorder Substance use disorder Son No problems noted. Daughter No problems noted. Social History Housing: House Alcohol intake: current Alcohol intake frequency: holidays/special occasions only Patient Tobacco Use Status: Former Tobacco user e-Cigarette/Vaping Use: Never Used Current occupational status: disabled Cognitive needs: No Hearing needs: No Vision needs: Yes Questionnaire Thrive Questionnaire Date Thrive assessed: 04/02/22 KRISH-7 AMB Questionnaire KRISH-7 Date KRISH - 7 assessed: 04/02/22 Source: Developed by Drs. Chemo Sterling, Kathryn Carey, Santi Watson and colleagues, with an educational miguel from [employer]. Review of Systems Const All systems reviewed & are unremarkable except as noted in HPI and below ENT Reports no additional complaints Card Reports no additional complaints Resp Reports no additional complaints GI Reports no additional complaints Reports no additional complaints Physical exam (Primary Care) Vital Signs: Last Vital Signs Pulse 112 H 06/12/23 12:42 BP 112/78 06/12/23 12:42 Pulse Ox 98 06/12/23 12:42 Oxygen Delivery Method Room Air 06/12/23 12:42 BMI result Body Mass Index 32.9 Tobacco/Smoking Status: Tobacco use Status Tobacco use date assessed 03/14/23 06/12/23 12:42 Patient Tobacco Use Status Former Tobacco user 06/12/23 12:42 e-Cigarette/Vaping Use Never Used 06/12/23 12:42 Thrive Assessment: Date of Thrive Assessment Date Thrive assessed 04/02/22 06/12/23 12:42 Const General: no acute distress HENMT Head: Yes normal to inspection Face and sinus: Yes normal facial exam Throat: Yes posterior oropharynx normal Eyes General: appearance normal, both eyes and all related structures Neck Neck: Yes no lymphadenopathy and Yes supple Resp Effort & Inspection: normal respiratory effort Auscultation: clear to auscultation bilaterally Cardio Rhythm: regular rhythm Heart sounds: S1 normal heart sound present and S2 normal heart sound present GI Inspection: Yes normal to inspection Palpation (GI): Soft to palpation Percussion: Yes normal to percussion Auscultation: normal bowel sounds Assessment and Plan Assessment & Plan (1) Bipolar disorder: Comment: f/u psychiatry Code(s): F31.9 - Bipolar disorder, unspecified Plan: Continue current medications and follow-up with Psychiatry (2) Psoriatic arthritis: Comment: f/u by student support counselor Dr. Avelar Code(s): L40.50 - Arthropathic psoriasis, unspecified Plan: Follow-up with student support counselor (3) Diabetes: Comment: A1C less than 7 Code(s): E11.9 - Type 2 diabetes mellitus without complications Plan: A1c is 6.6 ADA diet increase physical activity discussed with the patient she will continue same medications and follow-up in 3 months with a fasting labs before (4) HTN (hypertension): Comment: BP less than 130/80 Code(s): I10 - Essential (primary) hypertension Plan: Continue current medications (5) Hyperlipemia: Code(s): E78.5 - Hyperlipidemia, unspecified Plan: Continue statin Medications: Discontinued linagliptin (Tradjenta) Discontinued Reason: Duplicate 5 mg PO DAILY 90 tabs 3RF Coding Level of Care Code Est Pt Level 4 (87670) Diagnoses Bipolar disorder F31.9 Psoriatic arthritis L40.50 Diabetes E11.9 HTN (hypertension) I10 Hyperlipemia E78.5
== END 2023-06-12 13:20 | disposition home or self-care (01) ==
PROVIDERS: PCP Internal Medicine; Visit Provider Internal Medicine
DX: F31.9 Bipolar disorder, unspecified (principal); L40.50 Arthropathic psoriasis, unspecified; E11.9 Type 2 diabetes mellitus without complications; I10 Essential (primary) hypertension; E78.5 Hyperlipidemia, unspecified
CPT/HCPCS: 99214

== ENCOUNTER 2023-09-07 13:22 | Outpatient (REF) | payer MEDICARE, MEDICAID, SELFPAY ==
[2023-09-07 15:11] LABS: MANUAL DIFF FLAG NO
[2023-09-07 15:12] LABS: Basophils Percent Auto 0.5 % (0-2); Eosinophils Absolute Auto 0.6 X10*3/uL (0.0-0.4); Eosinophils Percent Auto 8.7 % (0-4); Hematocrit 35.4 % (37.0-47.0); Hemoglobin 11.8 g/dl (12.0-16.0); Imm Gran Abs Auto 0.01 X10*3/uL (0.00-0.03); Imm Gran Pct Auto 0.1 % (0.0-0.4); Lymphocytes Absolute Auto 2.3 X10*3/uL (1.2-4.9); Lymphocytes Percent Auto 30.7 % (20-40); Mean Corpuscular HGB Conc 33.3 g/dl (31.0-35.0); Mean Corpuscular Hemoglobin 29.6 pg (27.0-33.0); Mean Corpuscular Volume 88.7 fL (80.0-98.0); Mean Platelet Volume 9.9 fL (9.4-12.3); Monocytes Absolute Auto 0.5 X10*3/uL (0.1-1.2); Monocytes Percent Auto 6.6 % (2-11); Neutrophils Absolute Auto 3.9 x10*3/uL (2.0-8.3); Neutrophils Percent Auto 53.4 % (45-73); Platelet Count 313 X10*3/uL (160-400); Red Blood Count 3.99 X10*6/uL (4.20-5.50); Red Cell Distribution Width 13.7 % (11.0-16.0); White Blood Count 7.4 X10*3/uL (4.8-10.8)
[2023-09-07 15:20] LABS: Estimated Average Glucose 131 mg/dL; Hemoglobin A1c % 6.2 % (<6.0)
[2023-09-07 15:29] LABS: Microalbum/Creatinine Ratio Ur 7.9 ug/mg cr (<30)
[2023-09-07 15:36] LABS: Alanine Aminotransferase 35 U/L (0-31); Albumin Level 3.9 g/dL (3.5-5.0); Alkaline Phosphatase 65 U/L (39-117); Anion Gap 17 (12-20); Aspartate Amino Transferase 45 U/L (5-31); Bilirubin Total 0.4 mg/dL (0.0-1.0); Blood Urea Nitrogen 17 mg/dL (9-16); Calcium 9.9 mg/dL (8.4-10.2); Carbon Dioxide 24 mmol/L (22-29); Chloride 103 mmol/L (96-108); Cholesterol 101 mg/dL (<200); Estimated Glomerular Filt Rate > 60; Glucose Fasting 103 mg/dL (60-99); HDL Cholesterol 42 mg/dL (>40); LDL Cholesterol Calculated 43 mg/dL (<100); Sodium 140 mmol/L (135-145); Total Protein 6.7 g/dL (6.5-8.0); Triglycerides 80 mg/dL (<150)
== END 2023-09-07 13:23 | disposition home or self-care (01) ==
LOC: HO.HMGCLDS 13:22
PROVIDERS: PCP Internal Medicine; Visit Provider Internal Medicine
DX: I10 Essential (primary) hypertension (principal); E78.5 Hyperlipidemia, unspecified; E11.9 Type 2 diabetes mellitus without complications
CPT/HCPCS: 36415; 80053; 80061; 82043; 82570; 83036; 85025

== ENCOUNTER 2023-09-16 10:02 | Outpatient (AMB) | payer MEDICARE, MEDICAID, SELFPAY ==
[2023-09-16 10:14] VITALS: BP 115/75; PULSE 78; O2SAT 98; BMI 32.4
--- NOTE | 2023-09-16 10:14 | A.OFFPC_ITS ---
Vital Signs 09/16/23 10:14 Height 5 ft 3 in Weight 183 lb BMI 32.4 BP 115/75 Blood Pressure Location Rt brachial Position Sitting Pulse 78 Pulse Source Pulse Oximeter Pulse Oximetry (%) 98 Oxygen Delivery Method Room Air Intake Visit Reasons: 3 Month follow up Intake Note: Patient is here today for 3 month follow up Allergies amlodipine [From Norvasc] Allergy (Unknown, Verified 09/16/23 10:14) Anaphylaxis chlorthalidone Allergy (Unknown, Verified 09/16/23 10:14) Anaphylaxis doxycycline Allergy (Unknown, Verified 09/16/23 10:14) Anaphylaxis erythromycin base Allergy (Unknown, Verified 09/16/23 10:14) Anaphylaxis loracarbef [From Lorabid] Allergy (Unknown, Verified 09/16/23 10:14) Anaphylaxis prednisone Allergy (Unknown, Verified 09/16/23 10:14) manic Sulfa (Sulfonamide Antibiotics) Allergy (Unknown, Verified 09/16/23 10:14) anaphylaxis sulfamethoxazole [From Bactrim] Allergy (Unknown, Verified 09/16/23 10:14) Anaphylaxis trimethoprim [From Bactrim] Allergy (Unknown, Verified 09/16/23 10:14) Anaphylaxis Lorabid Allergy (Unknown, Uncoded 06/12/23 12:51) anaphylaxis Medication List - Last Reconciled 09/16/23 by Almaz Billy MD albuterol sulfate 0.63 mg (3 mL) inhalation Q6H albuterol sulfate 90 mcg/actuation 2 puffs inhalation Q6H PRN atorvastatin 40 mg PO DAILY budesonide-formoterol 80-4.5 mcg/actuation (Symbicort) 2 puffs inhalation BID buspirone mg PO cetirizine 10 mg PO DAILY PRN clonazepam mg PO duloxetine 30 mg PO DAILY gabapentin 600 mg PO BID hydrochlorothiazide 25 mg PO DAILY lamotrigine mg PO meloxicam 7.5 mg PO DAILY metformin 1,000 mg (2 x 500 mg) PO BID nebulizers Nebulizer and supplies olmesartan 40 mg PO DAILY omeprazole 20 mg PO BID Ozempic (semaglutide) 0.5 mg (0.736 mL) subcut QWEEK NS promethazine-codeine 6.25-10 mg/5 mL 5 mL PO Q6H PRN 7 days secukinumab 150 mg subcut .2 times a month tizanidine 4 mg PO TID PRN Tobacco use date assessed: 09/16/23 Fall risk assessment: 1 Fall in past year Last assessed Fall Risk: 09/16/23 Dental Screening Dental Screen Date: 09/16/23 Did you have a dental visit in the last 12 months?: No Did you have a dental problem in the last 6 months where you did not have access to dental care?: No Was dental information given to patient?: Patient has dentist HPI 3 Month follow up HPI Details Pt presents for f/u HTN, hyperlipid, DM 2, stable on meds. [facility] Medical History Asthma Fall Annual physical exam IBS (irritable bowel syndrome) Mammogram normal Fatty liver Bipolar disorder Exercise-induced asthma Hyperlipemia HTN (hypertension) Neuropathy Obesity Diabetes Psoriatic arthritis Surgical History History of bladder surgery H/O colonoscopy History of esophagogastroduodenoscopy (EGD) Hx of cholecystectomy History of total abdominal hysterectomy Family History Father No problems noted. Mother No problems noted. Sister No problems noted. Sister No problems noted. Son Mental health disorder Substance use disorder Son No problems noted. Daughter No problems noted. Social History Housing: House Alcohol intake: current Alcohol intake frequency: holidays/special occasions only Patient Tobacco Use Status: Former Tobacco user e-Cigarette/Vaping Use: Never Used service: No Current occupational status: disabled Cognitive needs: No Hearing needs: No Vision needs: Yes Questionnaire PHQ-9 Over the last 2 weeks, how often have you been bothered by any of the following problems? 1. Little interest or pleasure in doing things: not at all 2. Feeling down, depressed, or hopeless: not at all 3. Trouble falling or staying asleep, or sleeping too much: not at all 4. Feeling tired or having little energy: not at all 5. Poor appetite or overeating: not at all 6. Feeling bad about yourself - or that you are a failure or have let yourself o r your family down: not at all 7. Trouble concentrating on things, such as reading the newspaper or watching television: not at all 8. Moving or speaking so slowly that other people could have noticed. Or the opposite - being so fidgety or restless that you have been moving around a lot more than usual: not at all 9. Thoughts that you would be better off or of hurting yourself in some way: not at all Total score: 0 Depression Screening Interpretation: Negative Depression Screening Done: Yes 61349 - PHQ-9 Billing: Yes Source: Developed by Drs. Chemo Sterling, Kathryn Carey, Santi lowe nd colleagues, with an educational miguel from [employer]. Thrive Questionnaire Date Thrive assessed: 09/16/23 I am a: Patient What is your living situation today?: I have a steady place to live Within the past 12 months, did the food you bought not last and you didn't have the money to get more?: Never true Within the past 12 months, did you worry whether your food would run out before you got money to buy more?: Never true Do you have trouble paying for medicines?: No Do you have trouble getting transportation to medical appointments?: No Do you have trouble paying your heating and electricity bill?: No Do you have trouble taking care of your child, family member or friend?: No Do you have trouble with day-to-day activities such as bathing, preparing meals, shopping, managing finances, etc.?: No Are you currently unemployed and looking for a job?: Yes Are you interested in more education?: I choose not to answer this question Please select the resources that you would like help with: Housing/Retirement Currently or been in a relationship where the following occur: No concerns reported THRIVE Score: 0 AUDIT C Alcohol Use Questionnaire (AUDIT-C) 1. How often do you have a drink containing alcohol?: Never 3. How often do you have six or more drinks on one occasion?: Never Total Score: 0 Score Reviewed/Action Taken: Yes KRISH-7 AMB Questionnaire KRISH-7 Date KRISH - 7 assessed: 09/16/23 Feeling nervous, anxious, or on edge: 0 = Not at all Not being able to stop or control worryin = Not at all Worrying too much about different things: 0 = Not at all Trouble relaxin = Not at all Being so restless that it is hard to sit still: 0 = Not at all Becoming easily annoyed or irritable: 0 = Not at all Feeling afraid as if something awful might happen: 0 = Not at all Total KRISH-7 score (0-4 normal; 5-9 mild; 10-14 moderate; 15-21 severe): 0 Source: Developed by Drs. Chemo Sterling, Kathryn Carey, Santi Watson and colleagues, with an educational miguel from [employer]. KRISH-7 Assessment Billing KRISH-7 Assessment Tool: KRISH-7 Assessment 56768 Review of Systems Const All systems reviewed & are unremarkable except as noted in HPI and below Reports no additional complaints Eyes Reports no additional complaints ENT Reports no additional complaints Card Reports no additional complaints Resp Reports no additional complaints GI Reports no additional complaints Reports no additional complaints Physical exam (Primary Care) Vital Signs: Last Vital Signs Pulse 78 09/16/23 10:14 BP 115/75 09/16/23 10:14 Pulse Ox 98 09/16/23 10:14 Oxygen Delivery Method Room Air 09/16/23 10:14 BMI result Body Mass Index 32.4 Tobacco/Smoking Status: Tobacco use Status Tobacco use date assessed 09/16/23 09/16/23 10:15 Patient Tobacco Use Status Former Tobacco user 09/16/23 10:15 e-Cigarette/Vaping Use Never Used 09/16/23 10:15 PHQ-9: PHQ-9 Score PHQ-9: Total score 0 09/16/23 10:56 Depression Screening Interpretation: Negative Thrive Assessment: Date of Thrive Assessment Date Thrive assessed 09/16/23 09/16/23 10:15 Currently or been in a relationship where the following occur: No concerns reported Const General: no acute distress HENMT Ears: hearing grossly normal bilaterally Throat: Yes posterior oropharynx normal Eyes General: appearance normal, both eyes and all related structures Neck Neck: Yes supple Resp Effort & Inspection: normal respiratory effort Auscultation: clear to auscultation bilaterally Cardio Rhythm: regular rhythm Heart sounds: S1 normal heart sound present and S2 normal heart sound present GI Inspection: Yes normal to inspection Palpation (GI): Soft to palpation Percussion: Yes normal to percussion Auscultation: normal bowel sounds Assessment and Plan Assessment & Plan (1) Anemia: Code(s): D64.9 - Anemia, unspecified Plan: Check iron studies and B12 level (2) Diabetes: Comment: A1C less than 7 Code(s): E11.9 - Type 2 diabetes mellitus without complications Plan: A1c is 6.2. Continue current medications ADA diet increase physical activity (3) HTN (hypertension): Comment: BP less than 130/80 Code(s): I10 - Essential (primary) hypertension Plan: Continue olmesartan (4) Hyperlipemia: Code(s): E78.5 - Hyperlipidemia, unspecified Plan: Continue statin (5) Annual physical exam: Code(s): Z00.00 - Encounter for general adult medical examination without abnormal findings (6) Bipolar disorder: Comment: f/u psychiatry Code(s): F31.9 - Bipolar disorder, unspecified Plan: Follow-up with the Psychiatry (7) Psoriatic arthritis: Comment: f/u by [employer] Dr. Avelar Code(s): L40.50 - Arthropathic psoriasis, unspecified Plan: Follow-up with rheumatology Orders: Orders Vitamin B12 and Folate 3 Months D64.9 - Anemia, unspecified, E11.9 - Type 2 diabetes mellitus without complications, E78.5 - Hyperlipidemia, unspecified, I10 - Essential (primary) hypertension, Z00.00 - Encounter for general adult medical examination without abnormal findings Hemoglobin A1c 3 Months E11.9 - Type 2 diabetes mellitus without complications, E78.5 - Hyperlipidemia, unspecified, I10 - Essential (primary) hypertension, Z00.00 - Encounter for general adult medical examination without abnormal findings Complete Blood Count Auto Diff 3 Months E11.9 - Type 2 diabetes mellitus without complications, E78.5 - Hyperlipidemia, unspecified, I10 - Essential (primary) hypertension, Z00.00 - Encounter for general adult medical examination without abnormal findings Lipid Panel 3 Months E11.9 - Type 2 diabetes mellitus without complications, E78.5 - Hyperlipidemia, unspecified, I10 - Essential (primary) hypertension, Z00.00 - Encounter for general adult medical examination without abnormal findings IRON PROFILE Today D64.9 - Anemia, unspecified Comprehensive [place]. Panel Fast 3 Months E11.9 - Type 2 diabetes mellitus without complications, E78.5 - Hyperlipidemia, unspecified, I10 - Essential (primary) hypertension, Z00.00 - Encounter for general adult medical examination without abnormal findings Microalbumin, Random (w Creat) 3 Months E11.9 - Type 2 diabetes mellitus without complications, E78.5 - Hyperlipidemia, unspecified, I10 - Essential (primary) hypertension, Z00.00 - Encounter for general adult medical examination without abnormal findings Coding Level of Care Code Est Pt Level 4 (11638) Complex EM visit Add On G2211 Diagnoses Anemia D64.9 Diabetes E11.9 HTN (hypertension) I10 Hyperlipemia E78.5 Annual physical exam Z00.00 Bipolar disorder F31.9 Psoriatic arthritis L40.50 Additional Codes KRISH-7 Assessment Billing - KRISH-7 Assessment Tool: KRISH-7 Assessment [id number] ([id number])
== END 2023-09-16 11:16 | disposition home or self-care (01) ==
PROVIDERS: PCP Internal Medicine; Visit Provider Internal Medicine
DX: D64.9 Anemia, unspecified (principal); E11.9 Type 2 diabetes mellitus without complications; F31.9 Bipolar disorder, unspecified; L40.50 Arthropathic psoriasis, unspecified; I10 Essential (primary) hypertension; E78.5 Hyperlipidemia, unspecified
CPT/HCPCS: 99214; G2211

== ENCOUNTER 2023-12-13 13:28 | Outpatient (REF) | payer MEDICARE, MEDICAID, SELFPAY ==
[2023-12-13 16:38] LABS: MANUAL DIFF FLAG NO
[2023-12-13 16:51] LABS: Basophils Absolute Auto 0.1 X10*3/uL (0.0-0.2); Basophils Percent Auto 0.8 % (0-2); Eosinophils Absolute Auto 0.5 X10*3/uL (0.0-0.4); Eosinophils Percent Auto 6.8 % (0-4); Hematocrit 42.1 % (37.0-47.0); Hemoglobin 13.8 g/dl (12.0-16.0); Imm Gran Abs Auto 0.03 X10*3/uL (0.00-0.03); Imm Gran Pct Auto 0.4 % (0.0-0.4); Lymphocytes Absolute Auto 2.2 X10*3/uL (1.2-4.9); Lymphocytes Percent Auto 27.7 % (20-40); Mean Corpuscular HGB Conc 32.8 g/dl (31.0-35.0); Mean Corpuscular Hemoglobin 29.5 pg (27.0-33.0); Mean Platelet Volume 10.5 fL (9.4-12.3); Monocytes Absolute Auto 0.5 X10*3/uL (0.1-1.2); Monocytes Percent Auto 6.4 % (2-11); Neutrophils Absolute Auto 4.6 x10*3/uL (2.0-8.3); Neutrophils Percent Auto 57.9 % (45-73); Platelet Count 305 X10*3/uL (160-400); Red Blood Count 4.68 X10*6/uL (4.20-5.50); Red Cell Distribution Width 13.3 % (11.0-16.0); White Blood Count 7.9 X10*3/uL (4.8-10.8)
[2023-12-13 16:53] LABS: Estimated Average Glucose 123 mg/dL; Hemoglobin A1C 145.9947 umol/L; Hemoglobin A1c % 5.9 % (<6.0); Total Hemoglobin (HGBA1C) 3588.6968 umol/L
[2023-12-13 17:00] LABS: Anion Gap 15 (12-20)
[2023-12-13 17:04] LABS: Alkaline Phosphatase 58 U/L (39-117); Aspartate Amino Transferase 29 U/L (5-31); Bilirubin Total 0.4 mg/dL (0.0-1.0); Blood Urea Nitrogen 26 mg/dL (9-16); Calcium 10.2 mg/dL (8.4-10.2); Carbon Dioxide 25 mmol/L (22-29); Chloride 104 mmol/L (96-108); Cholesterol 137 mg/dL (<200); Estimated Glomerular Filt Rate > 60; Glucose Fasting 132 mg/dL (60-99); HDL Cholesterol 49 mg/dL (>40); Iron 65 mcg/dL (30-160); LDL Cholesterol Calculated 74 mg/dL (<100); Percent Iron Saturation 18 % (15-50); Sodium 140 mmol/L (135-145); Total Iron Binding Capacity 361 mcg/dL (228-428); Total Protein 6.6 g/dL (6.5-8.0); Triglycerides 70 mg/dL (<150); Unsaturated Iron Binding 296 ug/dL
[2023-12-13 17:17] LABS: Alanine Aminotransferase 28 U/L (0-31)
[2023-12-13 17:28] LABS: Creatinine Urine 209.49 mg/dL; Microalbum/Creatinine Ratio Ur 5.2 ug/mg cr (<30)
[2023-12-13 17:34] LABS: Folate 10.5 ng/mL (> or = 4.0); Vitamin B12 375 pg/mL (200-900)
== END 2023-12-13 13:29 | disposition home or self-care (01) ==
LOC: HO.HMGCLDS 13:28
PROVIDERS: PCP Internal Medicine; Visit Provider Internal Medicine
DX: Z00.00 Encounter for general adult medical examination without abnormal findings (principal); E11.9 Type 2 diabetes mellitus without complications; E78.5 Hyperlipidemia, unspecified; I10 Essential (primary) hypertension; D64.9 Anemia, unspecified
CPT/HCPCS: 36415; 80053; 80061; 82043; 82570; 82607; 82746; 83036; 83540; 85025

== ENCOUNTER 2023-12-18 12:48 | Outpatient (AMB) | payer MEDICARE, MEDICAID, SELFPAY ==
--- NOTE | 2023-12-18 12:56 | MHC.PC.OV ---
Vital Signs 12/18/23 12:57 Height 5 ft 3 in Weight 173 lb BMI 30.6 BP 128/76 Blood Pressure Location Lt brachial Position Sitting Pulse 70 Pulse Source Pulse Oximeter Pulse Oximetry (%) 97 Oxygen Delivery Method Room Air Intake Visit Reasons: 3 Month follow up Intake Note: Pt is here today for 3 months follow up visit. Allergies amlodipine [From Norvasc] Allergy (Unknown, Verified 12/18/23 12:58) Anaphylaxis chlorthalidone Allergy (Unknown, Verified 12/18/23 12:58) Anaphylaxis doxycycline Allergy (Unknown, Verified 12/18/23 12:58) Anaphylaxis erythromycin base Allergy (Unknown, Verified 12/18/23 12:58) Anaphylaxis loracarbef [From Lorabid] Allergy (Unknown, Verified 12/18/23 12:58) Anaphylaxis prednisone Allergy (Unknown, Verified 12/18/23 12:58) manic Sulfa (Sulfonamide Antibiotics) Allergy (Unknown, Verified 12/18/23 12:58) anaphylaxis sulfamethoxazole [From Bactrim] Allergy (Unknown, Verified 12/18/23 12:58) Anaphylaxis trimethoprim [From Bactrim] Allergy (Unknown, Verified 12/18/23 12:58) Anaphylaxis Lorabid Allergy (Unknown, Uncoded 12/18/23 12:58) anaphylaxis Medication List - Last Reconciled 12/18/23 by Almaz Billy MD albuterol sulfate 0.63 mg (3 mL) inhalation Q6H albuterol sulfate 90 mcg/actuation 2 puffs inhalation Q6H PRN atorvastatin 40 mg PO DAILY budesonide-formoterol 80-4.5 mcg/actuation (Symbicort) 2 puffs inhalation BID buspirone mg PO cetirizine 10 mg PO DAILY PRN clonazepam mg PO duloxetine 30 mg PO DAILY gabapentin 600 mg PO BID hydrochlorothiazide 25 mg PO DAILY meloxicam 7.5 mg PO DAILY metformin 1,000 mg (2 x 500 mg) PO BID nebulizers Nebulizer and supplies olmesartan 40 mg PO DAILY omeprazole 20 mg PO BID Ozempic (semaglutide) 0.5 mg (0.736 mL) subcut QWEEK NS promethazine-codeine 6.25-10 mg/5 mL 5 mL PO Q6H PRN 7 days secukinumab 150 mg subcut .2 times a month tizanidine 4 mg PO TID PRN Tobacco use date assessed: 12/18/23 Dental Screening Dental Screen Date: 09/16/23 HPI 3 Month follow up HPI Details Pt presents for f/u DM 2, htn, hyperlipid, stable on meds. Pt f/u with psychiatry for bipolar dx. [facility] Medical History Asthma Fall Annual physical exam IBS (irritable bowel syndrome) Mammogram normal Fatty liver Bipolar disorder Exercise-induced asthma Hyperlipemia HTN (hypertension) Neuropathy Obesity Diabetes Psoriatic arthritis Surgical History History of bladder surgery H/O colonoscopy History of esophagogastroduodenoscopy (EGD) Hx of cholecystectomy History of total abdominal hysterectomy Family History Father No problems noted. Mother No problems noted. Sister No problems noted. Sister No problems noted. Son Mental health disorder Substance use disorder Son No problems noted. Daughter No problems noted. Social History Housing: House Alcohol intake: current Alcohol intake frequency: holidays/special occasions only Patient Tobacco Use Status: Former Tobacco user e-Cigarette/Vaping Use: Never Used service: No Current occupational status: disabled Cognitive needs: No Hearing needs: No Vision needs: Yes Questionnaire Thrive Questionnaire Date Thrive assessed: 09/16/23 I am a: Patient What is your living situation today?: I have a steady place to live Within the past 12 months, did the food you bought not last and you didn't have the money to get more?: Never true Within the past 12 months, did you worry whether your food would run out before you got money to buy more?: Never true Do you have trouble paying for medicines?: No Do you have trouble getting transportation to medical appointments?: No Do you have trouble paying your heating and electricity bill?: No Do you have trouble taking care of your child, family member or friend?: No Do you have trouble with day-to-day activities such as bathing, preparing meals, shopping, managing finances, etc.?: No Are you currently unemployed and looking for a job?: Yes Are you interested in more education?: I choose not to answer this question Please select the resources that you would like help with: None Currently or been in a relationship where the following occur: No concerns reported THRIVE Score: 0 AUDIT C Alcohol Use Questionnaire (AUDIT-C) 3. How often do you have six or more drinks on one occasion?: Never Total Score: 0 KRISH-7 AMB Questionnaire KRISH-7 Date KRISH - 7 assessed: 09/16/23 Source: Developed by Drs. Chemo Sterling, Kathryn Carey, Santi Watson and colleagues, with an educational miguel from [employer]. Review of Systems Const All systems reviewed & are unremarkable except as noted in HPI and below Eyes Reports no additional complaints ENT Reports no additional complaints Card Reports no additional complaints Resp Reports no additional complaints GI Reports no additional complaints Reports no additional complaints Physical exam (Primary Care) Vital Signs: Last Vital Signs Pulse 70 12/18/23 12:57 BP 128/76 12/18/23 12:57 Pulse Ox 97 12/18/23 12:57 Oxygen Delivery Method Room Air 12/18/23 12:57 BMI result Body Mass Index 30.6 Tobacco/Smoking Status: Tobacco use Status Tobacco use date assessed 12/18/23 12/18/23 13:02 Patient Tobacco Use Status Former Tobacco user 12/18/23 13:02 e-Cigarette/Vaping Use Never Used 12/18/23 13:02 Thrive Assessment: Date of Thrive Assessment Date Thrive assessed 09/16/23 12/18/23 13:02 Currently or been in a relationship where the following occur: No concerns reported Const General: no acute distress HENMT Mouth: Normal oral and palatal mucosa present Eyes General: appearance normal, both eyes and all related structures Resp Effort & Inspection: normal respiratory effort Auscultation: clear to auscultation bilaterally Cardio Rhythm: regular rhythm Heart sounds: S1 normal heart sound present and S2 normal heart sound present GI Inspection: Yes normal to inspection Palpation (GI): Soft to palpation Percussion: Yes normal to percussion Coding Level of Care Code Est Pt Level 4 (47014) Diagnoses HTN (hypertension) I10 Diabetes E11.9 Hyperlipemia E78.5 Assessment & Plan Assessment & Plan (1) HTN (hypertension): Comment: BP less than 130/80 Code(s): I10 - Essential (primary) hypertension Category: Medical Plan: cont meds (2) Diabetes: Comment: A1C less than 7 Code(s): E11.9 - Type 2 diabetes mellitus without complications Category: Medical Plan: a1c is 5.9, cont meds (3) Hyperlipemia: Code(s): E78.5 - Hyperlipidemia, unspecified Category: Medical Plan: cont statin Orders: Orders Hemoglobin A1c 3 Months E11.9 - Type 2 diabetes mellitus without complications, E78.5 - Hyperlipidemia, unspecified, I10 - Essential (primary) hypertension Complete Blood Count Auto Diff 3 Months E11.9 - Type 2 diabetes mellitus without complications, E78.5 - Hyperlipidemia, unspecified, I10 - Essential (primary) hypertension Comprehensive [place]. Panel Fast 3 Months E11.9 - Type 2 diabetes mellitus without complications, E78.5 - Hyperlipidemia, unspecified, I10 - Essential (primary) hypertension Lipid Panel 3 Months E11.9 - Type 2 diabetes mellitus without complications, E78.5 - Hyperlipidemia, unspecified, I10 - Essential (primary) hypertension Microalbumin, Random (w Creat) 3 Months E11.9 - Type 2 diabetes mellitus without complications, E78.5 - Hyperlipidemia, unspecified, I10 - Essential (primary) hypertension Medications: New semaglutide (Ozempic) 0.5 mg (0.736 mL) subcut QWEEK 3 mL 3RF Discontinued Ozempic (semaglutide) Discontinued Reason: Doctor's Order 0.5 mg (0.736 mL) subcut QWEEK 9 mL 0RF NS
[2023-12-18 12:57] VITALS: BP 128/76; PULSE 70; O2SAT 97; BMI 30.6
== END 2023-12-18 13:06 | disposition home or self-care (01) ==
LOC: HO.HMCC 12:49
PROVIDERS: PCP Internal Medicine; Visit Provider Internal Medicine
DX: I10 Essential (primary) hypertension (principal); E11.9 Type 2 diabetes mellitus without complications; E78.5 Hyperlipidemia, unspecified

== ENCOUNTER → 2023-12-18 12:48 | Outpatient (BNVA) | payer MEDICARE, MEDICAID, SELFPAY | PROVIDERS: PCP Internal Medicine; Visit Provider Internal Medicine | DX: I10 Essential (primary) hypertension (principal); E11.9 Type 2 diabetes mellitus without complications; E78.5 Hyperlipidemia, unspecified | CPT/HCPCS: 99212 ==

== ENCOUNTER 2024-03-09 12:30 | Outpatient (REF) | payer MEDICARE, MEDICAID, SELFPAY ==
[2024-03-09 16:21] LABS: MANUAL DIFF FLAG NO
[2024-03-09 16:35] LABS: Basophils Absolute Auto 0.1 X10*3/uL (0.0-0.2); Basophils Percent Auto 0.7 % (0-2); Eosinophils Absolute Auto 0.1 X10*3/uL (0.0-0.4); Eosinophils Percent Auto 0.9 % (0-4); Hematocrit 44.6 % (37.0-47.0); Hemoglobin 14.6 g/dl (12.0-16.0); Imm Gran Abs Auto 0.08 X10*3/uL (0.00-0.03); Imm Gran Pct Auto 0.9 % (0.0-0.4); Lymphocytes Absolute Auto 2.3 X10*3/uL (1.2-4.9); Lymphocytes Percent Auto 25.2 % (20-40); Mean Corpuscular HGB Conc 32.7 g/dl (31.0-35.0); Mean Corpuscular Hemoglobin 30.2 pg (27.0-33.0); Mean Corpuscular Volume 92.1 fL (80.0-98.0); Mean Platelet Volume 10.2 fL (9.4-12.3); Monocytes Absolute Auto 0.6 X10*3/uL (0.1-1.2); Neutrophils Absolute Auto 6.1 x10*3/uL (2.0-8.3); Neutrophils Percent Auto 66.3 % (45-73); Platelet Count 293 X10*3/uL (160-400); Red Blood Count 4.84 X10*6/uL (4.20-5.50); Red Cell Distribution Width 15.2 % (11.0-16.0); White Blood Count 9.2 X10*3/uL (4.8-10.8)
[2024-03-09 16:45] LABS: Estimated Average Glucose 120 mg/dL; Hemoglobin A1C 153.1374 umol/L; Hemoglobin A1c % 5.8 % (<6.0); Total Hemoglobin (HGBA1C) 3814.0589 umol/L
[2024-03-09 16:56] LABS: Creatinine Urine 195.49 mg/dL; Microalbum/Creatinine Ratio Ur 5.6 ug/mg cr (<30)
[2024-03-09 17:05] LABS: Alanine Aminotransferase 55 U/L (0-31); Albumin Level 3.9 g/dL (3.5-5.0); Alkaline Phosphatase 56 U/L (39-117); Anion Gap 10 (12-20); Aspartate Amino Transferase 26 U/L (5-31); Bilirubin Total 0.7 mg/dL (0.0-1.0); Blood Urea Nitrogen 18 mg/dL (9-16); Calcium 9.7 mg/dL (8.4-10.2); Carbon Dioxide 27 mmol/L (22-29); Chloride 107 mmol/L (96-108); Cholesterol 226 mg/dL (<200); Estimated Glomerular Filt Rate > 60; Glucose Fasting 116 mg/dL (60-99); HDL Cholesterol 48 mg/dL (>40); LDL Cholesterol Calculated 151 mg/dL (<100); Potassium 4.3 mmol/L (3.3-5.1); Sodium 140 mmol/L (135-145); Total Protein 6.8 g/dL (6.5-8.0); Triglycerides 137 mg/dL (<150)
--- OUTSIDE RECORDS SUMMARY | 2024-03-09 17:14 | XMS_ITS | Encounter Summary ---
Author Organization [facility] Address [address] [place] [address] Care Team Providers Care Word Processing Supervisor Name Role Phone Almaz Billy MD Primary Care Provider [phone] Reason for Visit * Reason Comments Follow-up 1 mo fu Encounter Details Date Type Department Care Team ([facility] st Contact Info) Description 03/02/2024 2:20 PM EST Office Visit Gastroenterology - [address] [phone] Laz Brennan PA [address] [address] Nausea and vomiting, unspecified vomiting type (Primary Dx); Functional diarrhea; Weight loss Social History Tobacco Use Types Packs/Day Years Used Date Smoking Tobacco: Former Cigarettes Alcohol Use Standard Drinks/Week Comments Not Currently 0 (1 standard drink = 0.6 oz pur e alcohol) Sex and Gender Information Value Date Recorded Sex Assigned at Female 02/24/2024 2:07 PM EST Gender Identity Female 02/24/2024 2:07 PM EST Sexual Orientation Straight 02/24/2024 2: 07 PM EST Job Start Date Occupation Industry Not on file Not on file Not on file documented as of this encounter Last Filed Vital Signs Vital Sign Reading Time Taken Comments Blood Pressure - - Pulse - - Temperature - - Respiratory Rate - - Oxygen Saturation - - Inhaled Oxygen Concentration - - Weight 69.9 kg (154 lb) 03/02/2024 2:00 PM EST Height 157.5 cm (5' 2 ) 03/02/2024 2:00 PM EST Body Mass Index 28.17 03/02/2024 2:00 PM EST documented in this encounter Progress Notes * LONNIE Devlin - 03/02/2024 2:20 PM EST Subjective Last Colononscopy/EGD: Colon 05/03 (09)- TA/HP, tics, rhoids (5 yr) HPI: Kelly Peacock is a 63 y.o. old female who presents to the gastroenterology department todayfor a follow up for diarrhea, weight loss, nausea and vomiting. The lab work was unremarkable. The stool workup noted a mild elevation in the fecal calprotectin and was otherwise unremarkable for an i nfectious etiology. Abdominal pelvic CT was unremarkable. She is currently feeling much better. Herstool is formed overall. She is having approximately 1 bowel movement a day. She has no more pain or vomiting. Her weight is stable. It is unclear if this was a viral illness or a flare of her IBS. She had no current GI concerns. LABS/IMAGING: INDICATION: Nausea/vomiting, weight loss TECHNIQUE: CT of the abdomen and pelvis following the intravenous administration of 90cc Isovue 370. Multiplanar reformats. The examination was performed utilizing dose reduction techniques. Total DLP 1199 COMPARISON: 10/21/2006 FINDINGS: LOWER THORAX: Lung bases are clear. Advanced coronary artery calcifications. HEPATOBILIARY: Hepatic steatosis. No focal liver lesions. Cholecystectomy. No biliary duct dilatation SPLEEN: No splenomegaly. PANCREAS: No focal mass or ductal dilatation. ADRENALS: No nodules. KIDNEYS/URETERS: No hydronephrosis or suspicious mass. 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 5 mm nonobstructive right lower pole calculus. No ureteral calculi PELVIC ORGANS/BLADDER: Hysterectomy. Bladder is decompressed. PERITONEUM / RETROPERITONEUM: No ascites or free air. No retroperitoneal lymphadenopathy. VESSELS: Abdominal aorta is normal in size. Portal vein is patent. GI TRACT: Colonic diverticulosis. Normal appendix. No bowel obstruction or wall thickening. BONES AND SOFT TISSUES: Right inguinal hernia repair with Prolene plug in place. Advanced lumbar facet arthritis. Degenerative changes seen throughout the spine. IMPRESSION: No acute findings in the abdomen/pelvis. Review of Systems Constitutional: Negative. Respiratory: Negative. Cardiovascular: Negative. Gastrointestinal: Negative. Genitourinary: Negative. PROBLEM LIST: Patient Active Problem List Diagnosis Adenomatous polyp of colon Irritable bowel syndrome with diarrhea Psoriatic arthritis (CMS/HCC) S/P partial hysterectomy Diabetes (CMS/HCC) Asthma Gastroesophageal reflux disease without esophagitis HTN (hypertension) Fibromyalgia Hyperlipidemia Fatty liver History of hernia surgery Hx of cholecystectomy PAST MEDICAL HISTORY: No past medical history on file. PAST SURGICAL HISTORY: Past Surgical History: Procedure Laterality Date COLONOSCOPY 04/2022 normal mucosa, left sided tics, 3 sessile polyps (TA/HP), internal rhoids (5yr) COLONOSCOPY 10/2017 Dr. Epstein cecal TA ESOPHAGOGASTRODUODENOSCOPY 10/2017 Dr. Epstein fundic gland polyps,small hiatal hernia SOCIAL HISTORY: Social History Tobacco Use Smoking status: Former Types: Cigarettes Smokeless tobacco: Not on file Substance Use Topics Alcohol use: Not Currently FAMILY HISTORY: No family history on file. ACTIVE MEDICATIONS: Current Outpatient Medications Medication Sig Dispense Refill acetaminophen (TylenoL) 325 mg capsule Take 2 capsules (650 mg total) by mouth. atorvastatin (LIPITOR) 40 mg tablet Take 1 tablet (40 mg total) by mouth 1 (one) time each day. ferrous sulfate 325 mg (65 mg elemental iron) tablet gabapentin (NEURONTIN) 600 mg tablet Take 1 tablet(s) 3 times a day by oral route for 90 days. hydroCHLOROthiazide (HYDRODIURIL) 25 mg tablet Take 1 tablet (25 mg total) by mouth 1 (one) time each day. metFORMIN (GLUCOPHAGE) 500 mg tablet Take 2 tablets twice a day by oral route for 90 days. olmesartan (BENICAR) 40 mg tablet Take 1 tablet (40 mg total) by mouth 1 (one) time each day. omeprazole (PriLOSEC) [address] capsule Take 1 capsule (20 mg total) by mouth 2 (two) times a day. Ozempic 0.25 mg or 0.5 mg (2 mg/3 mL) injection pen ADMINISTER 0.5 MG UNDER THE SKIN EVERY WEEK fdygcrdb-cung-kejyz-oreg-capry 100 mg-150 mg- 50 mg-150 mg capsule Take 500 mg by mouth. No current facility-administered medications for this visit. ALLERGIES: Allergies Allergen Reactions Doxycycline Sulfa (Sulfonamide Antibiotics) Physical Exam Constitutional: Appearance: Normal appearance. HENT: Head: Normocephalic. Abdominal: General: Bowel sounds are normal. There is no distension. Palpations: Abdomen is soft. There is no mass. Tenderness: There is no abdominal tenderness. There is no guarding or rebound. Skin: General: Skin is warm. Neurological: Mental Status: She is alert and oriented to person, place, and time. Psychiatric: Mood and Affect: Mood normal. Behavior: Behavior normal. IMPRESSION: 1. Nausea and vomiting, unspecified vomiting type 2. Functional diarrhea 3. Weight loss Assessment/Plan Assessment & Plan Nausea and vomiting, unspecified vomiting type Functional diarrhea Weight loss GI symptoms resolved. Unclear if this was viral or functional (IBS-D). F/U prn LONNIE Devlin 3:24 PM EST documented in this encounter Plan of Treatment Not on file documented as of this encounter Visit Diagnoses Diagnosis Nausea and vomiting, unspecified vomiting type- Primary Functional diarrhea Weight loss Loss of weight documented in this encounter Care Teams Word Processing Supervisor Relationship Specialty Start Date End Date Almaz Billy MD [address] [place] [address] PCP - General Internal Medicine 01/29/24 documented as of this encounter
--- OUTSIDE RECORDS SUMMARY | 2024-03-09 17:14 | XMS_ITS | Encounter Summary ---
Author Organization [facility] Address [address] [place] [address] Care Team Providers Care Auto Bumper Mechanic Name Role Phone Almaz Billy MD Primary Care Provider [phone] Reason for Referral * Imaging (Routine) - Closed Specialty Diagnoses / Procedures Referred By Contac t Referred To Contact Radiology Diagnoses Diarrhea, unspecified type Weight loss Nausea and vomiting, unspecified vomiting type Procedures CT Abdomen Pelvis w Contrast Laz Brennan PA [address] [address] Referral ID Status Reason Start Date Expiration Date Visits Re quested Visits Authorized [id number] Closed 01/29/2024 01/28/2025 1 1 Reason for Visit * Imaging (Routine) - Closed Specialty Diagnoses / Procedures Referred By Contac t Referred To Contact Radiology Diagnoses Diarrhea, unspecified type Weight loss Nausea and vomiting, unspecified vomiting type Procedures CT Abdomen Pelvis w Contrast Laz Brennan PA [address] [address] Referral ID Status Reason Start Date Expiration Date Visits Re quested Visits Authorized [id number] Closed 01/29/2024 01/28/2025 1 1 Encounter Details Date Type Department Care Team (Latest Contact Info) Description 02/24/2024 2:08 PM EST - 02/24/2024 11:59 PM EST Hospital Encounter [facility] CT Scan [address] [place] [address] Diarrhea, unspecified type; Weight loss; Nausea and vomiting, unspecified vomiting type Discharge Disposition: Home or Self Care Social History Tobacco Use Types Packs/Day Years [...] on file documented as of this encounter Medications at Time of Discharge Medication Sig Dispensed Refills Start Date End Date acetaminophen (TylenoL) 325 mg capsule Take 2 capsules (650 mg total) by mouth. 04/18/2022 atorvastatin (LIPITOR) 40 mg tablet Take 1 tablet (40 mg total) by mouth 1 (one) time each day. 12/01/2021 ferrous sulfate 325 mg (65 mg elemental iron) tablet gabapentin (NEURONTIN) 600 mg tablet Take 1 tablet(s) 3 times a day by oral route for 90 days. 12/01/2021 hydroCHLOROthiazide (HYDRODIURIL) 25 mg tablet Take 1 tablet (25 mg total) by mouth 1 (one) time each day. metFORMIN (GLUCOPHAGE) 500 mg tablet Take 2 tablets twice a day by oral route for 90 days. 08/07/2006 olmesartan (BENICAR) 40 mg tablet Take 1 tablet (40 mg total) by mouth 1 (one) time each day. omeprazole (PriLOSEC) [address] capsule Take 1 capsule (20 mg total) by mouth 2 (two) times a day. 01/03/2024 Ozempic 0.25 mg or 0.5 mg (2 mg/3 mL) injection pen ADMINISTER 0.5 MG UNDER THE SKIN EVERY WEEK 01/16/2024 emwasnwe-bkyx-aniul-oreg -capry 100 mg-150 mg- 50 mg-150 mg capsule Take 500 mg by mouth. 04/17/2022 documented as of this encounter Discharge Disposition Disposition Code Departure Means Destination Home or Self Care documented in this encounter Plan of Treatment Not on file documented as of this encounter Procedures Procedure Name Priority Date/Time Associated Diagnosis Comments CT ABDOMEN PELVIS W CONTRAST Routine 02/24/2024 2:22 PM EST Diarrhea, unspecified type Weight loss Nausea and vomiting, unspecified vomiting type documented in this encounter Results * CT Abdomen Pelvis w Contrast (02/24/2024 2:22 PM EST) Anatomical Region Laterality Modality Body Computed Tomogra phy 03/02/2024 2:31 PM EST Impressions 03/02/2024 2:54 PM EST No acute findings in the abdomen/pelvis. -------- FINAL REPORT -------- Dictated By: DUY COYLE Dictated Date: 03/02/2024 14:31 ET Assigned Physician: DUY COYLE Reviewed and Electronically Signed By: DUY COYLE Signed Date: 03/02/2024 14:54 ET Workstation ID: [id number] Transcribed By: Self Edit Transcribed Date: 03/02/2024 14:31 ET Narrative 03/02/2024 2:54 PM EST PROCEDURE: CT ABDOMEN/PELVIS INDICATION: Nausea/vomiting, weight loss TECHNIQUE: CT of the abdomen and pelvis following the intravenous administration of 90cc Isovue 370. Multiplanar reformats. The examination was performed utilizing dose reduction techniques. Total DLP 1199 COMPARISON: ??10/21/2006 FINDINGS: ?? LOWER THORAX: Lung bases are clear. ??Advanced coronary artery calcifications. HEPATOBILIARY: Hepatic steatosis. ??No focal liver lesions. ??Cholecystectomy. ??No biliary duct dilatation SPLEEN: No splenomegaly. PANCREAS: No focal mass or ductal dilatation. ADRENALS: No nodules. KIDNEYS/URETERS: No hydronephrosis or suspicious mass. 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 ??5 mm nonobstructive right lower pole calculus. ??No ureteral calculi PELVIC ORGANS/BLADDER: Hysterectomy. ??Bladder is decompressed. PERITONEUM / RETROPERITONEUM: No ascites or free air. No retroperitoneal lymphadenopathy. VESSELS: Abdominal aorta is normal in size. ??Portal vein is patent. GI TRACT: Colonic diverticulosis. ??Normal appendix. ??No bowel obstruction or wall thickening. BONES AND SOFT TISSUES: Right inguinal hernia repair with Prolene plug in place. ??Advanced lumbar facet arthritis. ??Degenerative changes seen throughout the spine. Procedure Note Duy Coyle MD - 03/02/2024 PROCEDURE: CT ABDOMEN/PELVIS INDICATION: Nausea/vomiting, weight loss TECHNIQUE: CT of the abdomen and pelvis following the intravenousadministration of 90cc Isovue 370. Multiplanar reformats. The examinationwas performed utilizing dose reduction techniques. Total DLP 1199 COMPARISON: 10/21/2006 FINDINGS: LOWER THORAX: Lung bases are clear. Advanced coronary arterycalcifications. HEPATOBILIARY: Hepatic steatosis. No focal liver lesions.Cholecystectomy. No biliary duct dilatation SPLEEN: No splenomegaly. PANCREAS: No focal mass or ductal dilatation. ADRENALS: No nodules. KIDNEYS/URETERS: No hydronephrosis or suspicious mass. 2 cm right lowerpole renal angiomyolipoma. 5 mm nonobstructive right lower pole calculus.No ureteral calculi PELVIC ORGANS/BLADDER: Hysterectomy. Bladder is decompressed. PERITONEUM / RETROPERITONEUM: No ascites or free air. No retroperitoneallymphadenopathy. VESSELS: Abdominal aorta is normal in size. Portal vein is patent. GI TRACT: Colonic diverticulosis. Normal appendix. No bowel obstructionor wall thickening. BONES AND SOFT TISSUES: Right inguinal hernia repair with Prolene plug inplace. Advanced lumbar facet arthritis. Degenerative changes seenthroughout the spine. IMPRESSION: No acute findings in the abdomen/pelvis. -------- FINAL REPORT -------- Dictated By: DUY COYLE Dictated Date: 03/02/2024 14:31 ET Assigned Physician: DUY COYLE Reviewed and Electronically Signed By: DUY COYLE Signed Date: 03/02/2024 14:54 ET Workstation ID: [id number] Transcribed By: Self Edit Transcribed Date: 03/02/2024 14:31 ET Laz FLEMING IMEdd CT PROCEDURES documented in this encounter Visit Diagnoses Diagnosis Diarrhea, unspecified type Weight loss Loss of weight Nausea and vomiting, unspecified vomiting type documented in this encounter Administered Medications Inactive Administered Medications - up to 3 most recent administrations Medication Order MAR Action Action Date Dose Rate Site barium sulfate (READI-CAT 2) 2 % (w/v) suspension 900 mL 900 mL, oral, Once in imaging, Starting on Sat02/24/24 at 1417, For 1 dose Given 02/24/2024 2:20 PM EST 900 mL iopamidoL (ISOVUE-370) 370 mg iodine /mL (76 %) injection 90 mL 90 mL, intravenous, Once in imaging, Starting on Sat02/24/24 at 1417, For 1 dose Given 02/24/2024 2:20 PM EST 90 mL sodium chloride 0.9 % flush 10 mL 10 mL, intravenous, Once, On Sat02/24/24 at 1445, For 1 dose Given 02/24/2024 2:19 PM EST 10 mL documented in this encounter Care Teams Auto Bumper Mechanic Relationship Specialty Start Date End Date Almaz Billy MD [address] [place] [address] PCP - General Internal Medicine 01/29/24 documented as of this encounter
--- OUTSIDE RECORDS SUMMARY | 2024-03-09 17:14 | XMS_ITS | Encounter Summary ---
Author Organization [facility] Address [address] [place] [address] Care Team Providers Care Ramp Lead Name Role Phone Almaz Billy MD Primary Care Provider [phone] Encounter Details Date Type Department Care Team ([facility] st Contact Info) Description 03/02/2024 Telephone Gastroenterology - [address] [facility] [address] [place] [phone] Laz Brennan PA [address] [place] [place] [id number] Social History Tobacco Use Types Packs/Day Years [...] on file documented as of this encounter Progress Notes * LONNIE Devlin - 03/02/2024 3:26 PM EST I called pt to let her know the CT was read and was unremarkable. F/U PRN documented in this encounter Plan of Treatment Not on file documented as of this encounter Visit Diagnoses Not on filedocumented in this encounter Care Teams Ramp Lead Relationship Specialty Start Date End Date Almaz Billy MD [address] [place] [address] PCP - General Internal Medicine 01/29/24 documented as of this encounter
--- OUTSIDE RECORDS SUMMARY | 2024-03-09 17:14 | XMS_ITS | Clinical Summary ---
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 08/07/2006 Active Ozempic 0.25 mg or 0.5 mg (2 mg/3 mL) injection pen ADMINISTER 0.5 MG UNDER THE SKIN EVERY WEEK 01/16/2024 Active omeprazole (PriLOSEC) [address] capsule Take 1 capsule (20 mg total) by mouth 2 (two) times a day. 01/03/2024 Active olmesartan (BENICAR) 40 mg tablet Take 1 tablet (40 mg total) by mouth 1 (one) time each day. Active hydroCHLOROthiazide (HYDRODIURIL) 25 mg tablet Take 1 tablet (25 mg total) by mouth 1 (one) time each day. Active gabapentin (NEURONTIN) 600 mg tablet Take 1 tablet(s) 3 times a day by oral route for 90 days. 12/01/2021 Active ferrous sulfate 325 mg (65 mg elemental iron) tablet Active atorvastatin (LIPITOR) 40 mg tablet Take 1 tablet (40 mg total) by mouth 1 (one) time each day. 12/01/2021 Active dppwzoru-slon-xitjc- oreg-capry 100 mg-150 mg- 50 mg-150 mg capsule Take 500 mg by mouth. 04/17/2022 Active acetaminophen (TylenoL) 325 mg capsule Take 2 capsules (650 mg total) by mouth. 04/18/2022 Active Active Problems Problem Noted Date Diagnosed Date Adenomatous polyp of colon 01/29/2024 Irritable bowel syndrome with diarrhea Psoriatic arthritis 01/29/2024 S/P partial hysterectomy 01/29/2024 Diabetes 01/29/2024 Asthma 01/29/2024 Gastroesophageal reflux disease without esophagi tis 01/29/2024 HTN (hypertension) 01/29/2024 Fibromyalgia 01/29/2024 Hyperlipidemia 01/29/2024 Fatty liver 01/29/2024 History of hernia surgery 01/29/2024 Hx of cholecystectomy 01/29/2024 Encounters Date Type Department Care Team Description 03/02/2024 2:20 PM EST Office Visit Gastroenterology - [address] [place] [phone] Laz Brennan PA Nausea and vomiting, unspecified vomiting type (Primary Dx); Functional diarrhea; Weight loss 03/02/2024 Telephone Gastroenterology - [address] [place] [phone] Laz Brennan PA 02/24/2024 2:08 PM EST - 02/24/2024 11:59 PM EST Hospital Encounter [facility] CT Scan [address] [place] [phone] Diarrhea, unspecified type; Weight loss; Nausea and vomiting, unspecified vomiting type Discharge Disposition: Home or Self Care 02/10/2024 Telephone Gastroenterology - [address] [place] [phone] Laz Brennan PA 01/29/2024 2:20 PM EST Office Visit Gastroenterology - [address] [place] [phone] Laz Brennan PA Diarrhea, unspecified type (Primary Dx); Weight loss; Nausea and vomiting, unspecified vomiting type; Type 2 diabetes mellitus with diabetic autonomic neuropathy, without long-term current use of insulin ([facility]) 01/16/2024 Telephone Gastroenterology - [address] [place] [phone] Laz Brennan PA 01/14/2024 11:33 AM EST - 01/14/2024 11:59 PM EST Hospital Encounter [facility] Xray [address] [place] [address] Generalized abdominal pain Discharge Disposition: Home or Self Care 01/14/2024 Lab Requisition [facility] - Main Lab [address] [facility] [place] [phone] Rachel Child MD Encounter for gynecological examination (general) (routine) without abnormal findings 01/13/2024 Telephone Gastroenterology - [address] [facility] [address] [place] [phone] Laz Brennan PA from Last 3 Months Surgical History Surgery Date Site/Laterality Comments COLONOSCOPY 04/11/2022 - 05/11/2022 normal mucosa, left sided tics, 3 sessile polyps (TA/HP), internal rhoids (5yr) COLONOSCOPY 10/12/2017 - 11/10/2017 Dr. Epstein cecal TA ESOPHAGOGASTRODUODENOSCOPY 10/12/2017 - 11/10/2017 Dr. Epstein fundic gland polyps,small hiatal hernia Social History Tobacco Use Types Packs/Day Years Used Date Smoking Tobacco: Former Cigarettes Tobacco Cessation:Counseling Given: Not Answered Alcohol Use Standard Drinks/Week Comments Not Currently 0 (1 standard drink = 0.6 oz pur e alcohol) Sex and Gender Information Value Date Recorded Sex Assigned at Female 02/24/2024 2:07 PM EST Gender Identity Female 02/24/2024 2:07 PM EST Sexual Orientation Straight 02/24/2024 2: 07 PM EST Job Start Date Occupation Industry Not on file Not on file Not on file Obstetrics History Last Filed Vital Signs Vital Sign Reading Time Taken Comments Blood Pressure - - Pulse - - Temperature - - Respiratory Rate - - Oxygen Saturation - - Inhaled Oxygen Concentration - - Weight 69.9 kg (154 lb) 03/02/2024 2:00 PM EST Height 157.5 cm (5' 2 ) 03/02/2024 2:00 PM EST Body Mass Index 28.17 03/02/2024 2:00 PM EST Plan of Treatment Health Maintenance Due Date Last Done Comments Breast Cancer Screening 1960 Diabetes: Annual Foot Exam 1968 Diabetes: Annual Retina Eye Exam 1968 Zoster Vaccines (2 of 2) 11/25/2019 09/30/2019 Cholesterol Screening (Lipid Panel) 01/14/2022 Depression Screening 01/14/2022 Hepatitis C Screening 01/14/2022 Medicare Annual Wellness Visit 01/14/2022 Social Influencers of Health Screening 01/14/2022 Falls Risk Assessment 08/31/2023 Diabetes: Annual Urine Albumin-Creatinine Ratio (uACR) 01/14/2024 Diabetes: Blood Sugar Control Test (HGBA1C) 01/14/2024 Diabetes: Annual GFR (Glomerular Filtration Rate) 01/28/2025 01/29/2024 Hypertension/CHF/CAD Annual BMP Blood Test 01/28/2025 01/29/2024 Osteoporosis Screening (Bone Density Screening) 05/12/2026 05/12/2016, 05/12/2016 Cervical Cancer Screening: Pap Smear 01/12/2027 01/13/2024 DTaP,Tdap,and Td Vaccines (4 - Td or Tdap) 07/05/2030 07/05/2020, 07/21/2008, 09/10/2005 Colorectal Cancer Screening: Colonoscopy 01/29/2034 01/30/2024, 10/29/2017 Pneumococcal Vaccine: 65+ Years Completed 03/09/2023, 11/27/2016, 02/11/2009, Additional history exists Pneumococcal Vaccine: Pediatrics (0 to 5 Years) and At-Risk Patients (6 to 64 Years) Completed 03/09/2023, 11/27/2016, 02/11/2009, Additional history exists RSV Immunization Patients 60+ Years Old Completed 03/09/2023 COVID-19 Vaccine Completed 12/20/2023, 12/2022, 11/17/2021, Additional history exists Influenza Vaccine Completed 12/20/2023, , 11/17/2021, Additional history exists HIB Vaccines Aged Out No longer eligi ble based on patient's age to complete this topic HPV Vaccines Aged Out No longer eligi ble based on patient's age to complete this topic Hepatitis A Vaccines Aged Out No long er eligible based on patient's age to complete this topic Hepatitis B Vaccines Aged Out No long er eligible based on patient's age to complete this topic IPV Vaccines Aged Out No longer eligi ble based on patient's age to complete this topic MMR Vaccines Aged Out No longer eligi ble based on patient's age to complete this topic Meningococcal ACWY Vaccine Aged Out N o longer eligible based on patient's age to complete this topic RSV Immunization Patients Under 20 months Aged Out No longer eligible based on patient's age to complete this topic Varicella Vaccines Aged Out No longer eligible based on patient's age to complete this topic Procedures Procedure Name Priority Date/Time Associated Diagnosis Comments CT ABDOMEN PELVIS W CONTRAST Routine 02/24/2024 2:22 PM EST Diarrhea, unspecified type Weight loss Nausea and vomiting, unspecified vomiting type PANCREATIC ELASTASE 1 Routine 02/06/2024 8:30 AM EST Diarrhea, unspecified type Weight loss Nausea and vomiting, unspecified vomiting type Type 2 diabetes mellitus with diabetic autonomic neuropathy, without long-term current use of insulin ([facility]) CALPROTECTIN, STOOL Routine 02/06/2024 8 :30 AM EST Diarrhea, unspecified type Weight loss Nausea and vomiting, unspecified vomiting type GASTROINTESTINAL PATHOGENS BY PCR Routine 02/06/2024 8:30 AM EST Diarrhea, unspecified type Weight loss Nausea and vomiting, unspecified vomiting type Type 2 diabetes mellitus with diabetic autonomic neuropathy, without long-term current use of insulin ([facility]) COLONOSCOPY Routine 01/30/2024 3:48 PM EST CBC WITH AUTO DIFFERENTIAL Routine 01/29/2024 2:51 PM EST Diarrhea, unspecified type Weight loss Nausea and vomiting, unspecified vomiting type LIPASE Routine 01/29/2024 2:51 PM EST Diarrhea, unspecified type Weight loss Nausea and vomiting, unspecified vomiting type CBC AND DIFFERENTIAL Routine 01/29/2024 2:51 PM EST Diarrhea, unspecified type Weight loss Nausea and vomiting, unspecified vomiting type AMYLASE Routine 01/29/2024 2:51 PM EST Diarrhea, unspecified type Weight loss Nausea and vomiting, unspecified vomiting type THYROID STIMULATING IMMUNOGLOBULIN Routine 01/29/2024 2:51 PM EST Diarrhea, unspecified type Weight loss Nausea and vomiting, unspecified vomiting type VITAMIN B12 AND FOLATE Routine 2:51 PM EST Diarrhea, unspecified type Weight loss Nausea and vomiting, unspecified vomiting type COMPREHENSIVE METABOLIC PANEL Routine 01/29/2024 2:51 PM EST Diarrhea, unspecified type Weight loss Nausea and vomiting, unspecified vomiting type XR ABDOMEN 1 VIEW Routine 01/14/2024 11: 54 AM EST Generalized abdominal pain PAP SMEAR Routine 01/13/2024 12:00 AM EST Encounter for gynecological examination (general) (routine) without abnormal findings from Last 3 Months Results * CT Abdomen Pelvis w Contrast (02/24/2024 2:22 PM EST) Anatomical Region Laterality Modality Body Computed Tomogra phy 03/02/2024 2:31 PM EST Impressions 03/02/2024 2:54 PM EST No acute findings in the abdomen/pelvis. -------- FINAL REPORT -------- Dictated By: DUY HENDERSON Dictated Date: 03/02/2024 14:31 ET Assigned Physician: DUY HENDERSON Reviewed and Electronically Signed By: DUY HENDERSON Signed Date: 03/02/2024 14:54 ET Workstation ID: [id number] Transcribed By: Self Edit Transcribed Date: 03/02/2024 [...] seen throughout the spine. Procedure Note Duy Henderson MD - 03/02/2024 PROCEDURE: CT ABDOMEN/PELVIS INDICATION: [...] -------- FINAL REPORT -------- Dictated By: DUY HENDERSON Dictated Date: 03/02/2024 14:31 ET Assigned Physician: DUY HENDERSON Reviewed and Electronically Signed By: DUY HENDERSON Signed Date: 03/02/2024 14:54 ET Workstation ID: [id number] Transcribed By: Self Edit Transcribed Date: 03/02/2024 14:31 ET Laz Brenann LONNIE IMG CT PROCEDURES * Gastrointestinal pathogens molecular study (02/06/2024 8:30 AM EST) Campylobacter Detection by PCR Not Detected Not Detected LAB MICROBIOLOGY METHOD 4 11:41 AM [facility] Plesiomonas shigelloides Detection by PCR Not Detected Not Detected LAB MICROBIOLOGY METHOD 4 11:41 AM [facility] Salmonella Detection by PCR Not Detected Not Detected LAB MICROBIOLOGY METHOD 4 11:41 AM [facility] Vibrio Detection by PCR Not Detected Not Detected LAB MICROBIOLOGY METHOD 4 11:41 AM [facility] Vibrio cholerae Detection by PCR Not Detected Not Detected LAB MICROBIOLOGY METHOD 4 11:41 AM [facility] Yersinia enterocolitica Detection by PCR Not Detected Not Detected LAB MICROBIOLOGY METHOD 4 11:41 AM [facility] Enteroaggregative E coli EAEC Detection by PCR Not Detected Not Detected LAB MICROBIOLOGY METHOD 4 11:41 AM [facility] Enteropathogenic E coli EPEC Detection Not Detected Not Detected LAB MICROBIOLOGY METHOD 4 11:41 AM [facility] Enterotoxigenic E coli ETEC LTST Detection Not Detected Not Detected LAB MICROBIOLOGY METHOD 4 11:41 AM [facility] Shiga-like toxin producing E coli STEC STX1 STX2 Det Not Detected Not Detected LAB MICROBIOLOGY METHOD 4 11:41 AM [facility] Shigella Enteroinvasive E coli EIEC Detection Not Detected Not Detected LAB MICROBIOLOGY METHOD 4 11:41 AM [facility] Cryptosporidium Detection by PCR Not Detected Not Detected LAB MICROBIOLOGY METHOD 4 11:41 [facility] Cyclospora cayetanensis Detection by PCR Not Detected Not Detected LAB MICROBIOLOGY METHOD 4 11:41 [facility] Entamoeba histolytica Detection by PCR Not Detected Not Detected LAB MICROBIOLOGY METHOD 4 11:41 [facility] Giardia lamblia Detection by PCR Not Detected Not Detected LAB MICROBIOLOGY METHOD 4 11:41 [facility] Adenovirus F 40 41 Detection by PCR Not Detected Not Detected LAB MICROBIOLOGY METHOD 4 11:41 [facility] Astrovirus Detection by PCR Not Detected Not Detected LAB MICROBIOLOGY METHOD 4 11:41 [facility] Norovirus GI GII Detection by PCR Not Detected Not Detected LAB MICROBIOLOGY METHOD 4 11:41 [facility] Sapovirus Detection by PCR Not Detected Not Detected LAB MICROBIOLOGY METHOD 4 11:41 [facility] Rotavirus A Detection by PCR Not Detected Not Detected LAB MICROBIOLOGY METHOD 4 11:41 [facility] Stool Rectum structure / Unknown Non-blood Collection / Unknown 02/06/2024 8:30 AM EST 02/06/2024 9:26 AM [facility] - 02/06/2024 11:41 AM EST PCR testing is much more sensitive than traditional techniques and allows for the detection of low numbers of stool pathogens. The clinical correlation of PCR results with the need for treatment and clinical outcomes has not been established. Therefore the results of PCR testing for stool pathogens must be taken into clinical context when making treatment decisions. This is a diagnostic test only, repeat testing for cure is not advised. You may consider infectious disease consult for additional guidance. ??Testing Performed by [facility] MICROBIOLOGY - G ENERAL ORDERABLES [facility] [address] [place] [address], * Pancreatic elastase 1 (02/06/2024 8:30 AM EST) Pancreatic Elastase 1 710.0 >200 mcg/g 02/10/2024 3:14 PM EST [facility] Comment: Adult and Pediatric Referance Ranges for Pancreatic Elastase-1: Normal: ? >200 mcg/g Moderate Pancreatic Insufficiency: ?100-200 mcg/g Severe Pancreatic Insufficiency: ?<100 mcg/g Test performed at [facility], [address] [place], [place] ??[address] ? [phone] Sharyn Ansari MD, PhD - Brand Protection Manager Stool Rectum structure / Unknown Non-blood Collection / Unknown 02/06/2024 8:30 AM EST 02/06/2024 9:26 AM EST [facility] BODY FLUIDS AND STOOLS ORDERABLES [facility] [address] [place] [address] * (ABNORMAL) Calprotectin, stool (02/06/2024 8:30 AM EST) Calprotectin, Fecal 370.0(H) <50 mcg/g 02/10/2024 3:14 PM EST [facility] Comment: <50 mcg/g ?Normal 50 - 120 mcg/g ?? Borderline >120 mcg/g ? Abnormal Borderline results suggest repeat testing in 4 to 6 weeks. Test performed at [facility], [address] [place], [place] ??[address] ? [phone] Sharyn Ansari MD, PhD - Brand Protection Manager Stool Rectum structure / Unknown Non-blood Collection / Unknown 02/06/2024 8:30 AM EST 02/06/2024 9:26 AM EST [facility] BODY FLUIDS AND STOOLS ORDERABLES [address] [place] [address] * COLONOSCOPY (01/30/2024 3:48 PM EST) Anatomical Region Laterality Modality Endoscopy Historical Provider GI~PROCEDURE MARY SAMANIEGO * (ABNORMAL) Vitamin B12 and folate (01/29/2024 2:51 PM EST) Pathologist [facility] Vitamin B-12 670 250 - 900 pcg/mL LAB CHEMISTRY METHOD 01/29/2024 5:27 PM EST [facility] Folate 18.7(H) 2.8 - 17.0 ng/ml LAB CHEMISTRY METHOD 01/29/2024 5:27 PM EST [facility] Blood Venous blood specimen / Unknown Venipuncture / Unknown 01/29/2024 2:51 PM EST 01/29/2024 4:16 PM EST [facility] BLOOD ORDERABLES [facility] [address] [place] [address], * (ABNORMAL) CBC auto differential (01/29/2024 2:51 PM EST) Pathologist [facility] WBC 8.6 4.8 - 10.8 K/mcL LAB HEMETOLOGY METHOD 01/29/2024 4:36 PM EST [facility] RBC 4.70 3.80 - 4.80 M/mcL LAB HEMETOLOGY METHOD 01/29/2024 4:36 PM EST [facility] Hemoglobin 13.8 11.5 - 16.0 g/dL LAB HEMETOLOGY METHOD 01/29/2024 4:36 PM [facility] Hematocrit 43.5 35.0 - 47.0 % LAB HEMETOLOGY METHOD 01/29/2024 4:36 PM [facility] MCV 92.4 79.0 - 98.0 FL LAB HEMETOLOGY METHOD 01/29/2024 4:36 PM [facility] MCH 29.3 27.0 - 32.0 pcg LAB HEMETOLOGY METHOD 01/29/2024 4:36 PM [facility] MCHC 31.7(L) 32.0 - 37.0 g/dL LAB HEMETOLOGY METHOD 01/29/2024 4:36 PM [facility] RDW 13.7 11.0 - 15.0 % LAB HEMETOLOGY METHOD 01/29/2024 4:36 PM [facility] Platelets 300 130 - 400 K/mcL LAB HEMETOLOGY METHOD 01/29/2024 4:36 PM [facility] MPV 10.3 7.0 - 11.0 FL LAB HEMETOLOGY METHOD 01/29/2024 4:36 PM [facility] NRBC 0.0 <1.0 % LAB HEMETOLOGY METHOD 01/29/2024 4:36 PM [facility] NRBC Absolute 0.00 <0.10 K/mcL LAB HEMETOLOGY METHOD 01/29/2024 4:36 PM [facility] Neutrophils Relative 54.4 % LAB HEMETOLOGY METHOD 01/29/2024 4:36 PM [facility] Lymphocytes Relative 25.0 % LAB HEMETOLOGY METHOD 01/29/2024 4:36 PM [facility] Monocytes Relative 6.6 % LAB HEMETOLOGY METHOD 01/29/2024 4:36 PM [facility] Eosinophils Relative 13.1 % LAB HEMETOLOGY METHOD 01/29/2024 4:36 PM EST [facility] Basophils Relative 0.6 % LAB HEMETOLOGY METHOD 01/29/2024 4:36 PM EST [facility] Immature Granulocytes Relative 0.3 % LAB HEMETOLOGY METHOD 01/29/2024 4:36 PM EST [facility] Neutrophils Absolute 4.70 1.50 - 7.00 K/mcL LAB HEMETOLOGY METHOD 01/29/2024 4:36 PM EST [facility] Lymphocytes Absolute 2.16 1.00 - 5.00 K/mcL LAB HEMETOLOGY METHOD 01/29/2024 4:36 PM EST [facility] Monocytes Absolute 0.57 0.20 - 1.00 K/mcL LAB HEMETOLOGY METHOD 01/29/2024 4:36 PM EST [facility] Eosinophils Absolute 1.13(H) 0.00 - 0.50 K/mcL LAB HEMETOLOGY METHOD 01/29/2024 4:36 PM EST [facility] Basophils Absolute 0.05 0.00 - 0.20 K/mcL LAB HEMETOLOGY METHOD 01/29/2024 4:36 PM EST [facility] Immature Granulocytes Absolute 0.03 0.00 - 0.03 K/mcL LAB HEMETOLOGY METHOD 01/29/2024 4:36 PM EST [facility] Blood Venous blood specimen / Unknown Venipuncture / Unknown 01/29/2024 2:51 PM EST 01/29/2024 4:15 PM EST [facility] BLOOD ORDERABLES [facility] [address] [place] [address], * Thyroid stimulating immunoglobulin (01/29/2024 2:51 PM EST) Thyroid Stimulating Immunoglobulin <0.10 <0.10 IU/L 02/03/2024 2:47 PM EST [facility] Comment: Thyroid stimulating immunoglobulins (TSI) concentrations greater than or equal to (>=) 0.55 IU/L have a clinical sensitivity of at least 98.6%, and a clinical specificity of at least 98.5%, for the differential diagnosis of Graves' Disease. TSI concentrations for patients with other thyroid or autoimmune diseases range from 0.11 to 0.39 IU/L. Test performed at [facility], [address] , [place], [place] ??[address] ? [phone] Sharyn Ansari MD, PhD - Brand Protection Manager Blood Venous blood specimen / Unknown Venipuncture / Unknown 01/29/2024 2:51 PM EST 01/29/2024 4:15 PM EST [facility] BLOOD ORDERABLES [facility] [address] [place] [address] * Lipase (01/29/2024 2:51 PM EST) Lipase 44 13 - 75 unit/L LAB CHEMISTRY METHOD 01/29/2024 5:03 PM EST [facility] Blood Venous blood specimen / Unknown Venipuncture / Unknown 01/29/2024 2:51 PM EST 01/29/2024 4:16 PM EST [facility] BLOOD ORDERABLES [facility] [address] [place] [address], * Amylase (01/29/2024 2:51 PM EST) Amylase 28 25 - 115 unit/L LAB CHEMISTRY METHOD 01/29/2024 5:03 PM EST [facility] Blood Venous blood specimen / Unknown Venipuncture / Unknown 01/29/2024 2:51 PM EST 01/29/2024 4:16 PM EST [facility] BLOOD ORDERABLES [facility] [address] [place] [address], * Comprehensive metabolic panel (01/29/2024 2:51 PM EST) Sodium 141 133 - 145 mmol/L LAB CHEMISTRY METHOD 01/29/2024 5:27 PM [facility] Potassium 4.7 3.5 - 5.5 mmol/L LAB CHEMISTRY METHOD 01/29/2024 5:27 PM [facility] Chloride 106 96 - 110 mmol/L LAB CHEMISTRY METHOD 01/29/2024 5:27 PM [facility] CO2 26 21 - 32 mmol/L LAB CHEMISTRY METHOD 01/29/2024 5:27 PM [facility] Anion Gap 9 3 - 11 LAB CHEMISTRY METHOD 01/29/2024 5:27 PM [facility] Glucose 95 70 - 100 mg/dL LAB CHEMISTRY METHOD 01/29/2024 5:27 PM [facility] BUN 24 5 - 25 mg/dL LAB CHEMISTRY METHOD 01/29/2024 5:27 PM [facility] Creatinine 0.83 0.50 - 1.10 mg/dL LAB CHEMISTRY METHOD 01/29/2024 5:27 PM [facility] eGFR 78 >=60 mL/min/1. 73m2 LAB CHEMISTRY METHOD 01/29/2024 5:27 PM [facility] Comment:Calculation based on the??Chronic Kidney Disease Epidemiology Collaboration (CKD-EPI) equation refit??without adjustment for race. BUN/Creatinine Ratio 28.9 LAB CHEMISTRY METHOD 01/29/2024 5:27 PM [facility] Calcium 10.2 8.5 - 10.5 mg/dL LAB CHEMISTRY METHOD 01/29/2024 5:27 PM [facility] AST (SGOT) 13 10 - 42 unit/L LAB CHEMISTRY METHOD 01/29/2024 5:27 PM [facility] ALT (SGPT) 27 10 - 60 unit/L LAB CHEMISTRY METHOD 01/29/2024 5:27 PM [facility] Alkaline Phosphatase 58 42 - 121 unit/L LAB CHEMISTRY METHOD 01/29/2024 5:27 PM [facility] Total Protein 6.8 6.0 - 8.0 g/dL LAB CHEMISTRY METHOD 01/29/2024 5:27 PM [facility] Albumin 4.0 3.2 - 5.0 g/dL LAB CHEMISTRY METHOD 01/29/2024 5:27 PM [facility] Total Bilirubin 0.6 0.0 - 1.4 mg/dL LAB CHEMISTRY METHOD 01/29/2024 5:27 PM [facility] Blood Venous blood specimen / Unknown Venipuncture / Unknown 01/29/2024 2:51 PM EST 01/29/2024 4:16 PM EST [facility] BLOOD ORDERABLES [facility] [address] [place] [address], * XR Abdomen 1 View (01/14/2024 11:54 AM EST) Anatomical Region Laterality Modality Body Radiographic Aura ging 01/14/2024 12:0 5 PM EST Impressions 01/14/2024 12:06 PM EST Impression: No evidence of bowel obstruction identified. -------- FINAL REPORT -------- Dictated By: Mildred Jauregui Dictated Date: 01/14/2024 12:05 ET Assigned Physician: Mildred Jauregui Reviewed and Electronically Signed By: Mildred Jauregui Signed Date: 01/14/2024 12:06 ET Workstation ID: [id number] Transcribed By: Self Edit Transcribed Date: 01/14/2024 12:05 ET Narrative 01/14/2024 12:06 PM EST History: Abdominal pain of unknown cause. Findings: AP supine views of the abdomen and pelvis are submitted. No bowel dilatation is seen. Formed fecal material within the colon does not appear to be excessive. Solid visceral outlines are unremarkable. Cholecystectomy clips are noted. A levoscoliosis is centered at L3. There are facet degenerative changes in the lower lumbar spine. Procedure Note Mildred Jauregui MD - 01/14/2024 History: Abdominal pain of unknown cause. Findings: AP supine views of the abdomen and pelvis are submitted. No bowel dilatation is seen. Formed fecal material within the colon doesnot appear to be excessive. Solid visceral outlines are unremarkable.Cholecystectomy clips are noted. A levoscoliosis is centered at L3. There are facet degenerative changes inthe lower lumbar spine. IMPRESSION: Impression: No evidence of bowel obstruction identified. -------- FINAL REPORT -------- Dictated By: Mildred Jauregui Dictated Date: 01/14/2024 12:05 ET Assigned Physician: Mildred Jauregui Reviewed and Electronically Signed By: Mildred Jauregui Signed Date: 01/14/2024 12:06 ET Workstation ID: [id number] Transcribed By: Self Edit Transcribed Date: 01/14/2024 12:05 ET [facility] IMG XR PROCEDURES * Pap smear (01/13/2024 12:00 AM EST) Interpretation Negative for intraepithelial lesion or malignancy 01/16/2024 3:49 PM EST [facility] General Categorization Negative 01/16/2024 3:49 PM EST [facility] Specimen Adequacy Satisfactory for evaluation 01/16/2024 3:49 PM EST [facility] Pap Methodology Liquid Based Pap Test 01/16/2024 3:49 PM EST [facility] Disclaimer The Pap test is a screening test which carries an inherent false negative rate. These test results should be correlated with the patient's clinical findings and history. This Pap test was processed using an automated screening system. 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
--- OUTSIDE RECORDS SUMMARY | 2024-03-09 17:14 | XMS_ITS | Encounter Summary ---
Author Organization [facility] Address [address] [place] [address] Care Team Providers Care Philanthropy Officer Name Role Phone Almaz Billy MD Primary Care Provider [phone] Encounter Details Date Type Department Care Team (Latest Contact Info) Description 01/14/2024 Lab Requisition [facility] - Main Lab [address] [facility] [place] [id number] Rachel Child MD [address] [id number] Encounter for gynecological examination (general) (routine) without abnormal findings Social History Tobacco Use Types Packs/Day Years Used Date Smoking Tobacco: Never Assessed Sex and Gender Information Value Date Recorded Sex Assigned at Female 02/24/2024 2:07 PM EST Gender Identity Female 02/24/2024 2:07 PM EST Sexual Orientation Straight 02/24/2024 2: 07 PM EST Job Start Date Occupation Industry Not on file Not on file Not on file documented as of this encounter Plan of Treatment Not on file documented as of this encounter Procedures Procedure Name Priority Date/Time Associated Diagnosis Comments PAP SMEAR Routine 01/13/2024 12:00 AM EST Encounter for gynecological examination (general) (routine) without abnormal findings documented in this encounter Results * Pap smear (01/13/2024 12:00 AM EST) Interpretation Negative for intraepithelial lesion or malignancy 01/16/2024 3:49 PM EST [facility] General Categorization Negative 01/16/2024 3:49 PM [facility] Specimen Adequacy Satisfactory for evaluation 01/16/2024 3:49 PM [facility] Pap Methodology Liquid Based Pap Test 01/16/2024 3:49 PM [facility] Disclaimer The Pap test is a screening test which carries an inherent false negative rate. These test results should be correlated with the patient's clinical findings and history. This Pap test was processed using an automated screening system. Technical cytopathology services provided by [facility], at [address] [place] [address] (CLIA # [id number]/Abhishek Ayala MD, Horse Racing Manager.) 01/16/2024 3:49 PM [facility] Console Pap Interpretation Reported 01/16/2024 3:49 PM [facility] Brushing/Spatula Vaginal structure / Unknown 01/13/2024 01/14/2024 9:46 AM EST Rachel Child MD LAB CYTOLOGY ORD ERABLES [facility] [address] [place] [address], documented in this encounter Visit Diagnoses Diagnosis Encounter for gynecological examination (general) (routine) without abnormal findings documented in this encounter Additional Health Concerns Infection Onset Date Last Indicated Resolved Time C. Diff Rule-Out Infection 02/06/2024 02/06/2024 1 04/08/2023 10:20 AM EST Gastrointestinal Rule-Out 02/06/2024 02/06/2024 11:41 AM EST documented as of this encounter Care Teams Philanthropy Officer Relationship Specialty Start Date End Date Almaz Billy MD [address] [place] [phone] PCP - General Internal Medicine 01/29/24 documented as of this encounter
--- OUTSIDE RECORDS SUMMARY | 2024-03-09 17:15 | XMS_ITS | Data Portability ---
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 Plan of Treatment Reminders Order Date Submit Date Provider Last Modified By Organization Details Last Modified Time Details Appointments None recorded. Lab erythrocyt e sedimentat ion rate by westergren method 2015 017 LI[facility]A [facility], [address], [place], [address], 7 12:28:13 CMP, serum or plasma 2015 017 LI[facility]LLA [facility], [address], [place], [address], 7 12:28:14 CBC 2015 017 LIZELLA [facility], [address], [place], [address], 7 12:28:12 C-reactive protein, quantitati ve, serum or plasma [address] [facility], [address], [place], [address], 7 12:28:14 urinalysis , complete 2016 017 LIZELLA [facility], [address], [place], [address], 7 19:19:41 CBC 2016 017 LIZELLA [facility], [address], [place], [address], 7 01:49:23 lipid panel, serum 2016 017 LIZELLA [facility], [address], [place], [address], 7 12:58:38 venipunctu re 2016 017 LIZELLA [facility], [address], [place], [address], 7 10:30:07 1,5-anhydr oglucitol, serum or plasma 2016 017 LIZELLA [facility], [address], [place], [address], 7 12:58:39 HbA1c (hemoglobi n A1c), blood 2016 017 MORA [facility], [address], [place], [address], 7 20:36:42 CMP, serum or plasma 2016 017 MORA [facility], [address], [place], [address], 7 12:58:37 iron + TIBC + ferritin, serum 2016 017 [facility], [address], [place], [address], 7 12:58:37 CBC 2016 017 [facility], [address], [place], [address], 7 18:03:08 CMP, serum or plasma 2016 017 [facility], [address], [place], [address], 7 18:03:08 erythrocyt e sedimentat ion rate by westergren method 2016 017 [facility], [address] [place], [address], 8 14:34:57 C-reactive protein, quantitati ve, serum or plasma 2016 017 [facility], [address] [place], [address], 8 14:34:57 Referral None recorded. Procedures None recorded. Surgeries None recorded. Imaging electrocar diogram 2016 017 [email or web address] [id number] In-Office Order, Internal Use Only DO Not Attach Compendium DO Not Attach Compendium, Do Not Delete/merge, [id number] 7 17:19:46 Medication Orders Nesina 25 mg tablet [address] [facility], [address] [place], [address], 7 16:16:47 Enbrel SureClick 50 mg/mL (1 mL) subcutaneo us pen injector 2016 017 ATHE[facility] [employer] [facility] [address] [address], [place], [address], 7 16:41:00 omeprazole 20 mg capsule,de layed release 2016 INTERFACE [facility], [address] [place] [address], [place], [address], 7 18:26:54 tizanidine 4 mg tablet 2016 INTERFACE [facility], [address] [place] [address], [place], [address], 7 18:26:54 hydrochlor othiazide 25 mg tablet 2016 INTERFACE [facility], [address], [place], [address], 7 18:26:56 losartan 100 mg tablet 2016 INTERFACE [facility], [address] [place] [address], [place], [address], 7 18:26:53 atorvastat in 40 mg tablet 2016 INTERFACE [facility], [address], [place], [address], 7 18:26:55 metformin 500 mg tablet 2016 INTERFACE [facility], [address] [place] [address], [place], [address], 7 18:26:53 Onglyza 5 mg tablet 2016 017 INTERFACE [facility], [address] [place] [address], [place], [address], 7 18:26:52 gabapentin 600 mg tablet 2016 INTERFACE [facility], [address] [place] [address], [place], [address], 7 18:26:51 Cymbalta 30 mg capsule,de layed release 2016 017 INTERFACE [facility], [address] [place], [address], 7 18:26:52 buspirone 15 mg tablet 2016 017 INTERFACE [facility], [address] [place], [address], 7 18:26:57 clonazepam 1 mg tablet 2016 017 flemoine [facility], [address] [place], [address], 7 18:28:48 Enbrel SureClick 50 mg/mL (1 mL) subcutaneo us pen injector 2016 flemoine Not available 18:28:48 clobetasol 0.05 % topical ointment 2016 INTERFACE [facility], [address] [facility], [place], [address], 7 18:26:56 clobetasol 0.05 % scalp solution 2016 INTERFACE [facility], [address] [place], [address], 7 18:26:51 ferrous sulfate 325 mg (65 mg iron) tablet 2016 017 INTERFACE [facility], [address] [facility], [place], [address], 7 18:26:55 Patient TargetsNo targets recorded. Patient Instructions Encounter Date Encounter Id Patient Instructions Last Modified By Organization Details Last Modified Time 11/28/2015 [id number] call us if condition worsens Not available 11/28/2015 15:26:26 Patient aware of issues with biologics such as stopping medication/callin g us if any infections arise, also must stop biologic prior to suregery ( should call us if surgery planned), aware of cancers such as lymphoma, skin cancers, etc.. Not available 11/28/2015 15:26:26 02/27/2016 [id number] anemia: care instructions MORA Not available 02/28/2016 05:30:47 high cholesterol : care instructions MORA Not available 02/28/2016 05:28:09 CHANGE IRON TO 3 DAYS A WEEK (SAT, , SATURDAY) FINISH ONGLYZA, THEN START NESINA 25MG ONCE A DAY CHECK BLOOD SUGARS 2 HOURS AFTER BREAKFAST, LUNCH AND DINNER BRING LOG BOOK/GLUCOMETER WITH YOU TO YOUR NEXT APPT CHECK BLOOD PRESSURE ONCE OR TWICE A DAY BRING BLOOD PRESSURE CUFF AND RECORD OF BLOOD PRESSURES TO YOUR NEXT VISIT BRING ALL MEDICATIONS IN THEIR ORIGINAL BOTTLES TO ALL YOUR APPOINTMENTS EXERCISE 30-60 MINUTES 5-7 DAYS A WEEK SCREENING MAMMOGRAM BONE DENSITY flemoine Not available 02/27/2016 18:38:42 PLEASE DO NOT US E THE PATIENT PORTAL FOR URGENT OR EMERGENT MESSAGES. Please do not call office for test results. Results will be given at your next scheduled visit. You will be contacted about any significantly abnormal exam as soon as it has been reviewed. After your follow up apt your test results will be available for you to review on your patient portal. Risks and benefits of treatment/therapy discussed with patient and family members if present. Pt. allowed ample time to ask any questions. Common side effects reviewed as well. Patient understands instructions and will seek medical attention if symptoms worsen as directed. [employer] Speaking program was used in part of the creation of this note. The voice recognition is set for speed over accuracy. Inherently this may result in phonetic, recognition or omissions errors in this busser. [email or web address] Not available 02/27/2016 18:38:48 04/02/2016 [id number] Patient Instructions call us if condition worsens Not available 04/02/2016 16:13:16 Patient aware of issues with biologics such as stopping medication/callin g us if any infections arise, also must stop biologic prior to surgery ( should call us if surgery planned), aware of cancers such as lymphoma, skin cancers, etc.. Not available 04/02/2016 16:25:17 06/26/2016 [id number] Patient Instructions call us if condition worsens Not available 06/26/2016 13:58:15 Patient aware of issues with biologics such as stopping medication/callin g us if any infections arise, also must stop biologic prior to surgery ( should call us if surgery planned), aware of cancers such as lymphoma, skin cancers, etc.. Not available 06/26/2016 13:57:04 06/27/2016 [id number] starting a weigh t loss plan: care instructions MORA Not available 06/28/2016 07:05:18 FOR OBESITY/WEIGHT LOSS: 1). EXERCISE 30-60 MINUTES, 5-7 DAYS A WEEK. START SLOW AND WORK UP TO THIS AMOUNT IF YOU DO NOT NORMALY EXERCISE REGULARLY. 2). CONTINUE TO EAT EXACTLY THE SAME FOODS/AMOUNT/TIME S YOU HAVE BEEN AND DOCUMENT THIS FOR THE NEXT 2 WEEKS. 3). AFTER 2 WEEKS TAKE THIS INFORMATION AND LOOK UP ON THE INTERNET THE APPROXIMATE CALORIE CONTENT OF EACH MEAL CONSUMED. 4). CALCULATE YOUR AVERAGE TOTAL DAILY CALORIES. 5). DIVIDE THE AVERAGE OF YOUR TOTAL DAILY CALORIES INTO 3 EQUAL PORTIONS FOR BREAKFAST, LUNCH, AND DINNER. 6). AFTER AN ADDITIONAL 2-4 WEEKS LOOK UP ON THE INTERNET FOR INFORMATION ON AND THEN START FOLLOWING A MEDITERRANEAN DIET PLAN. 7). AFTER 2 ADDITIONAL MONTHS DECREASE YOUR PORTION/CALORIE AMOUNT PER MEAL BY 10%. CHECK BLOOD SUGARS 2 HOURS AFTER BREAKFAST, LUNCH AND DINNER BRING LOG BOOK/GLUCOMETER WITH YOU TO YOUR NEXT APPT CHECK BLOOD PRESSURE ONCE OR TWICE A DAY BRING BLOOD PRESSURE CUFF AND RECORD OF BLOOD PRESSURES TO YOUR NEXT VISIT BRING ALL MEDICATIONS IN THEIR ORIGINAL BOTTLES TO ALL YOUR APPOINTMENTS jaqueline Not available 06/27/2016 18:28:09 PLEASE DO NOT US E THE PATIENT PORTAL FOR URGENT OR EMERGENT MESSAGES. Please do not call office for test results. Results will be given at your next scheduled visit. You will be contacted about any significantly abnormal exam as soon as it has been reviewed. After your follow up apt your test results will be available for you to review on your patient portal. Risks and benefits of treatment/therapy discussed with patient and family members if present. Pt. allowed ample time to ask any questions. Common side effects reviewed as well. Patient understands instructions and will seek medical attention if symptoms worsen as directed. [employer] Speaking program was used in part of the creation of this note. The voice recognition is set for speed over accuracy. Inherently this may result in phonetic, recognition or omissions errors in this busser. [email or web address] Not available 06/27/2016 18:28:21 Reason for Referral None Reported. Results Created Date Observation Date Name Description Value Unit Range Abnormal Flag Note LastModifiedBy Organization Detail LastModifiedTime 11/21/19 16 11/21/2015 urina lysis , dipst ick leukocytes neg negati ve Not Available In-Office Order Internal Use Only DO Not Attach Compendium DO Not Attach Compendium, Do Not Delete/merge, [id number] 11/21/2015 19:41:57 11/21/19 16 11/21/2015 urina lysis , dipst ick nitrite neg negati ve Not Available In-Office Order Internal Use Only DO Not Attach Compendium DO Not Attach Compendium, Do Not Delete/merge, 11/21/2015 19:41:57 11/21/19 16 11/21/2015 urina lysis , dipst ick urobilinogen 0.2 0.2 Not Available In-Of fice Order Internal Use Only DO Not Attach Compendium DO Not Attach Compendium, Do Not Delete/merge, [id number] 11/21/2015 19:41:57 11/21/19 16 11/21/2015 urina lysis , dipst ick protein neg negati ve Not Available In-Office Order Internal Use Only DO Not Attach Compendium DO Not Attach Compendium, Do Not Delete/merge, [id number] 11/21/2015 19:41:57 11/21/19 16 11/21/2015 urina lysis , dipst ick pH 5.0 5.0-7. 0 Not Available In-Office Order Internal Use Only DO Not Attach Compendium DO Not Attach Compendium, Do Not Delete/merge, [id number] 11/21/2015 19:41:57 11/21/19 16 11/21/2015 urina lysis , dipst ick blood neg negati ve Not Available In-Office Order Internal Use Only DO Not Attach Compendium DO Not Attach Compendium, Do Not Delete/merge, [id number] 11/21/2015 19:41:57 11/21/19 16 11/21/2015 urina lysis , dipst ick specific gravity 1.030 1.020- 1.035 Not Available In-Office Order Internal Use Only DO Not Attach Compendium DO Not Attach Compendium, Do Not Delete/merge, [id number] 11/21/2015 19:41:57 11/21/19 16 11/21/2015 urina lysis , dipst ick ketone small negati ve Not Available In-Office Order Internal Use Only DO Not Attach Compendium DO Not Attach Compendium, Do Not Delete/merge, [id number] 11/21/2015 19:41:57 11/21/19 16 11/21/2015 urina lysis , dipst ick bilirubin small negati ve Not Available In-Office Order Internal Use Only DO Not Attach Compendium DO Not Attach Compendium, Do Not Delete/merge, [id number] 11/21/2015 19:41:57 11/21/19 16 11/21/2015 urina lysis , dipst ick glucose neg negati ve Not Available In-Office Order Internal Use Only DO Not Attach Compendium DO Not Attach Compendium, Do Not Delete/merge, [id number] 11/21/2015 19:41:57 11/14/19 16 11/14/2015 urina lysis , compl ete color LIGHT YELLOW Not Available [facility] [address], [place], [address], 11/14/2015 18:52:56 11/14/19 16 11/14/2015 urina lysis , compl ete appearance CLEAR clear Not Available [facility] [address], [place], [address], 11/14/2015 18:52:56 11/14/19 16 11/14/2015 urina lysis , compl ete specific gravity 1.010 Not Available [facility] [address], [place], [address], 11/14/2015 18:52:56 11/14/19 16 11/14/2015 urina lysis , compl ete pH 7.0 Not Available [facility] [address], [place], [address], 11/14/2015 18:52:56 11/14/19 16 11/14/2015 urina lysis , compl ete glucose NEGATI VE negati ve Not Available [facility] [address], [place], [address], 11/14/2015 18:52:56 11/14/19 16 11/14/2015 urina lysis , compl ete bilirubin NEGATI VE negati ve Not Available [facility] [address], [place], [address], 11/14/2015 18:52:56 11/14/19 16 11/14/2015 urina lysis , compl ete ketone NEGATI VE negati ve Not Available [facility] [address], [place], [address], 11/14/2015 18:52:56 11/14/19 16 11/14/2015 urina lysis , compl ete blood NEGATI VE negati ve Not Available [facility] [address], [place], [address], 11/14/2015 18:52:56 11/14/19 16 11/14/2015 urina lysis , compl ete protein NEGATI VE negati ve Not Available [facility] [address], [place], [address], 11/14/2015 18:52:56 11/14/19 16 11/14/2015 urina lysis , compl ete urobilinogen NORMAL Not Available [facility] [address], [place], [address], 11/14/2015 18:52:56 11/14/19 16 11/14/2015 urina lysis , compl ete nitrite NEGATI VE negati ve Not Available [facility] [address], [place], [address], 11/14/2015 18:52:56 11/14/19 16 11/14/2015 urina lysis , compl ete leukocytes NEGATI VE negati ve Not Available [facility] [address], [place], [address], 11/14/2015 18:52:56 11/14/19 16 11/14/2015 CBC WBC 4.4 x10^3 /uL 4.4-11 .0 Not Available [facility] [address] [place], [place] [address], [place], [address], 11/14/2015 19:40:45 11/14/19 16 11/14/2015 CBC RBC 4.71 x10^6 /uL 4.50-5 .10 Not Available [facility] [address] [place], [place] [address]y [address] [place], [address], 11/14/2015 19:40:45 11/14/19 16 11/14/2015 CBC HGB 12.0 g/dL 12.3-1 5.3 low RESUL TS VERIF IED BY REPEA T ROOSEVELT SIS Not Available [facility] [address] [place], [place] [address]y [address] [place], [address], 11/14/2015 19:40:45 11/14/19 16 11/14/2015 CBC HCT 37.5 % 35.9-4 4.6 Not Available [facility] [address] [place], [place] [address]y [address] [place], [address], 11/14/2015 19:40:45 11/14/19 16 11/14/2015 CBC MCV 79.8 fL 80.0-9 6.0 low Not Available [facility] [address] [place], [place] [address]y [address] [place], [address], 11/14/2015 19:40:45 11/14/19 16 11/14/2015 CBC MCH 25.5 pg 27.5-3 3.2 low Not Available [facility] [address] [place], [place] [address]y [address], [place], [address], 11/14/2015 19:40:45 11/14/19 16 11/14/2015 CBC MCHC 31.9 g/dL 33.4-3 5.5 low Not Available [facility] [address], [place], [address], 11/14/2015 19:40:45 11/14/19 16 11/14/2015 CBC RDW 17.2 % 11.6-1 3.7 high Not Available [facility] [address], [place], [address], 11/14/2015 19:40:45 11/14/19 16 11/14/2015 CBC plt 201 x10^3 /uL 150-45 0 Not Available [facility], [place], [address], 11/14/2015 19:40:45 11/14/19 16 11/14/2015 CBC MPV 9.1 fL 7.4-10 .4 Not Available [facility], [place], [address], 11/14/2015 19:40:45 11/14/19 16 11/14/2015 CBC neut # 2.2 x10^3 /uL 1.5-7. 2 Not Available [facility], [place], [address], 11/14/2015 19:40:45 11/14/19 16 11/14/2015 CBC lymph# 1.6 x10^3 /uL 0.7-4. 9 Not Available [facility] [address], [place], [address], 11/14/2015 19:40:45 11/14/19 16 11/14/2015 CBC mono# 0.5 x10^3 /uL 0.1-0. 9 Not Available [facility] [address], [place], [address], 11/14/2015 19:40:45 11/14/19 16 11/14/2015 CBC eos # 0.0 x10^3 /uL 0.0-0. 4 Not Available [facility] [address], [place], [address], 11/14/2015 19:40:45 11/14/19 16 11/14/2015 CBC baso # 0.0 x10^3 /uL 0.0-0. 2 Not Available [facility] [address], [place], [address], 11/14/2015 19:40:45 11/14/19 16 11/14/2015 CBC neut % 50.5 % 42.2-7 5.2 Not Available [facility] [address], [place], [address], 11/14/2015 19:40:45 11/14/19 16 11/14/2015 CBC mono% 11.9 % 1.7-9. 3 high Not Available [facility] [place], [address], 11/14/2015 19:40:45 11/14/19 16 11/14/2015 CBC eos% 1.0 % 1.0-6. 0 Not Available [facility] [address], [place], [address], 11/14/2015 19:40:45 11/14/19 16 11/14/2015 CBC baso% 0.5 % 0.0-4. 0 Not Available [facility] [address], [place], [address], 11/14/2015 19:40:45 11/14/19 16 11/14/2015 CBC lymph % 36.1 % 20.5-5 1.1 Not Available [facility] [address], [place], [address], 11/14/2015 19:40:45 11/14/19 16 11/14/2015 CMP, serum or plasm a sodium 139 mmol/ L 136-14 5 Not Available [facility] [address], [place], [address], 11/14/2015 19:54:40 11/14/19 16 11/14/2015 CMP, serum or plasm a potassium 4.5 mmol/ L 3.6-5. 1 Not Available [facility] [address] [place], [place] [address]y [address], [place], [address], 11/14/2015 19:54:40 11/14/19 16 11/14/2015 CMP, serum or plasm a chloride 101 mmol/ L 98-108 Not Available [facility] [address], [place], [address], 11/14/2015 19:54:40 11/14/19 16 11/14/2015 CMP, serum or plasm a carbon dioxide 34 mmol/ L 18-33 high Not Available [facility] [address] [place] [address]y [address] [place], [address], 11/14/2015 19:54:40 11/14/19 16 11/14/2015 CMP, serum or plasm a glucose 79 mg/dL 65-99 Not Available [facility] [address], [place], [address], 11/14/2015 19:54:40 11/14/19 16 11/14/2015 CMP, serum or plasm a BUN 14 mg/dL 7-18 Not Available [facility] [address], [place], [address], 11/14/2015 19:54:40 11/14/19 16 11/14/2015 CMP, serum or plasm a creatinine 0.8 mg/dL 0.8-1. 3 Not Available [facility] [address] [place], [place] [address]y [address], [place], [address], 11/14/2015 19:54:40 11/14/19 16 11/14/2015 CMP, serum or plasm a BUN/creat ratio 17.5 calc 10.0-2 5.0 Not Available [facility] [address] [place], [place] [address]y [address], [place], [address], 11/14/2015 19:54:40 11/14/19 16 11/14/2015 CMP, serum or plasm a calcium 8.7 mg/dL 8.5-10 .6 Not Available [facility] [address] [place], [place] [address]y [address], [place], [address], 11/14/2015 19:54:40 11/14/19 16 11/14/2015 CMP, serum or plasm a total protein 6.9 g/dL 6.4-8. 1 Not Available [facility] [address] [place], [place] [address]y [address], [place], [address], 11/14/2015 19:54:40 11/14/19 16 11/14/2015 CMP, serum or plasm a albumin 4.1 g/dL 3.3-5. 5 Not Available [facility] [address] [place] [address]y [address], [place], [address], 11/14/2015 19:54:40 11/14/19 16 11/14/2015 CMP, serum or plasm a globulin 2.8 g/dL 1.3-4. 0 Not Available [facility] [address] [place], [place] [address]y [address] [place], [address], 11/14/2015 19:54:40 11/14/19 16 11/14/2015 CMP, serum or plasm a A/G ratio 1.5 calc 1.0-2. 8 Not Available [facility] [address] [place] [address] [address] [place], [address], 11/14/2015 19:54:40 11/14/19 16 11/14/2015 CMP, serum or plasm a alk. phosphatase 69 U/L 50-[address] [facility] [address] [place] [address] [address] [place], [address], 11/14/2015 19:54:40 11/14/19 16 11/14/2015 CMP, serum or plasm a ALT (SGPT) 28 U/L 10-47 Not Available [facility] [address] [place] [address] [address] [place], [address], 11/14/2015 19:54:40 11/14/19 16 11/14/2015 CMP, serum or plasm a AST (SGOT) 30 U/L 11-38 Not Available [facility] [address] [place] [address], [address], 11/14/2015 19:54:40 11/14/19 16 11/14/2015 CMP, serum or plasm a total bilirubin 0.46 mg/dL 0.20-1 .60 Not Available [facility] [address] [place] [address], [address], 11/14/2015 19:54:40 11/14/19 16 11/14/2015 CMP, serum or plasm a GFR >60.0 >=60.0 IF PATIE NT IS AFRIC AN AMERI CAN, MULTI PLY RESUL T BY 1.21 Not Available [facility] [address] [place] [address] [address] [place], [address], 11/14/2015 19:54:40 11/14/19 16 11/14/2015 lipid panel , serum cholesterol 111 mg/dL 20-180 Not Available [facility] [address] [facility] [address] [place], [address], 11/14/2015 19:54:40 11/14/19 16 11/14/2015 lipid panel , serum triglyceride s 62 mg/dL 30-150 Not Available [facility] [address] [facility] [address] [place], [address], 11/14/2015 19:54:40 11/14/19 16 11/14/2015 lipid panel , serum HDL cholesterol 42 mg/dL 23-92 Not Available [facility] [address] [facility] [address] [place], [address], 11/14/2015 19:54:40 11/14/19 16 11/14/2015 lipid panel , serum VLDL cholesterol 12 calc Not Available [facility] [address] [place] [address], [address], 11/14/2015 19:54:40 11/14/19 16 11/14/2015 lipid panel , serum HDL risk factor 2.6 calc RISK FACTO R MALE FEMAL E 1/2 AVG RISK 3.4 3.3 AVG RISK 5.0 4.0 2X AVG RISK 9.6 7.1 3X AVG RISK 24.0 11.0 Not Available [facility] [address] [place] [address] [address] [place], [address], 11/14/2015 19:54:40 11/14/19 16 11/14/2015 lipid panel , serum cholesterol/ HDL ratio 3 calc CHOL/ HDL RATIO <3 OPTIM AL 3-4 BORDE RLINE >6 HIGH RISK Not Available [facility] [address] [facility] [address] [place], [address], 11/14/2015 19:54:40 11/14/19 16 11/14/2015 lipid panel , serum non-HDL cholesterol 69 calc NON-H DL TROY STERO L <190 MG/DL LOW RISK <160 MG/DL MODER ATE RISK <130 MG/DL HIGH RISK Not Available [facility] [address], [place], [address], 11/14/2015 19:54:40 11/14/19 16 11/15/2015 CMP, serum or plasm a glucose 96 mg/dL 65-99 normal Fasti ng refer ence inter inocencio Not Available [facility] [address], [place], [address], 11/15/2015 06:13:50 11/14/19 16 11/15/2015 CMP, serum or plasm a urea nitrogen (BUN) 14 mg/dL 7-25 normal Not Available [facility] [address], [place], [address], 11/15/2015 06:13:50 11/14/19 16 11/15/2015 CMP, serum or plasm a creatinine 0.85 mg/dL 0.50-1 .05 normal For patie nts >49 years of age, the refer ence limit for Creat inine is appro ximat mark 13% highe r for peopl e ident ified as Afric an-Am hong n. Not Available [facility] [place] [facility] [address], [place], [address], 11/15/2015 06:13:50 11/14/19 16 11/15/2015 CMP, serum or plasm a eGFR non-afr. citizen of [place] 76 mL/mi n/1.7 3m2 > or = 60 normal Not Available [facility] [place] [facility] [address], [place], [address], 11/15/2015 06:13:50 11/14/19 16 11/15/2015 CMP, serum or plasm a eGFR 88 mL/mi n/1.7 3m2 > or = 60 normal Not Available [facility] [address], [place], [address], 11/15/2015 06:13:50 11/14/19 16 11/15/2015 CMP, serum or plasm a BUN/creatini ne ratio NOT APPLIC ABLE (calc ) 6-22 Not Available [facility] [address], [place], [address], 11/15/2015 06:13:50 11/14/19 16 11/15/2015 CMP, serum or plasm a sodium 137 mmol/ L 135-14 6 normal Not Available [facility] [address], [place], [address], 11/15/2015 06:13:50 11/14/19 16 11/15/2015 CMP, serum or plasm a potassium 4.3 mmol/ L 3.5-5. 3 normal Not Available [facility] [address], [place], [address], 11/15/2015 06:13:50 11/14/19 16 11/15/2015 CMP, serum or plasm a chloride 100 mmol/ L 98-110 normal Not Available [facility] [address], [place], [address], 11/15/2015 06:13:50 11/14/19 16 11/15/2015 CMP, serum or plasm a carbon dioxide 28 mmol/ L 20-31 normal Not Available [facility] [address], [place], [address], 11/15/2015 06:13:50 11/14/19 16 11/15/2015 CMP, serum or plasm a calcium 8.7 mg/dL 8.6-10 .4 normal Not Available [facility] [address], [place], [address], 11/15/2015 06:13:50 11/14/19 16 11/15/2015 CMP, serum or plasm a protein, total 6.9 g/dL 6.1-8. 1 normal Not Available [facility] [place] [facility] [address], [place], [address], 11/15/2015 06:13:50 11/14/19 16 11/15/2015 CMP, serum or plasm a albumin 4.2 g/dL 3.6-5. 1 normal Not Available [facility] [address], [place], [address], 11/15/2015 06:13:50 11/14/19 16 11/15/2015 CMP, serum or plasm a globulin 2.7 g/dL_ (calc ) 1.9-3. 7 normal Not Available [facility] [address], [place], [address], 11/15/2015 06:13:50 11/14/19 16 11/15/2015 CMP, serum or plasm a albumin/glob ulin ratio 1.6 (calc ) 1.0-2. 5 normal Not Available [facility] [address], [place], [address], 11/15/2015 06:13:50 11/14/19 16 11/15/2015 CMP, serum or plasm a bilirubin, total 0.4 mg/dL 0.2-1. 2 normal Not Available [facility] [address], [place], [address], 11/15/2015 06:13:50 11/14/19 16 11/15/2015 CMP, serum or plasm a alkaline phosphatase 62 U/L 33-130 normal Not Available [facility] [address], [place], [address], 11/15/2015 06:13:50 11/14/19 16 11/15/2015 CMP, serum or plasm a AST 27 U/L 10-35 normal Not Available [facility] [address], [place], [address], 11/15/2015 06:13:50 11/14/19 16 11/15/2015 CMP, serum or plasm a ALT 25 U/L 6-29 normal Not Available [facility] [address], [place], [address], 11/15/2015 06:13:50 11/14/19 16 11/15/2015 eryth rocyt e sedim entat ion rate by westkatlyn lagunasren metho d sed rate by modified lyndseyren 7 mm/h < or = 30 normal Not Available [facility] [address], [place], [address], 11/15/2015 06:13:51 11/14/19 16 11/15/2015 CBC w/ auto diff white blood cell count 4.5 thous and/u L 3.8-10 .8 normal Not Available [facility] [address], [place], [address], 11/15/2015 06:13:51 11/14/19 16 11/15/2015 CBC w/ auto diff red blood cell count 4.67 bere on/uL 3.80-5 .10 normal Not Available [facility] [address], [place], [address], 11/15/2015 06:13:51 11/14/19 16 11/15/2015 CBC w/ auto diff hemoglobin 11.8 g/dL 11.7-1 5.5 normal Not Available [facility] [address], [place], [address], 11/15/2015 06:13:51 11/14/19 16 11/15/2015 CBC w/ auto diff hematocrit 37.8 % 35.0-4 5.0 normal Not Available [facility] [address], [place], [address], 11/15/2015 06:13:51 11/14/19 16 11/15/2015 CBC w/ auto diff MCV 81.0 fL 80.0-1 00.0 normal Not Available [facility] [place] [facility] [address], [place], [address], 11/15/2015 06:13:51 11/14/19 16 11/15/2015 CBC w/ auto diff MCH 25.3 pg 27.0-3 3.0 low Not Available [facility] [place] [facility] [address], [place], [address], 11/15/2015 06:13:51 11/14/19 16 11/15/2015 CBC w/ auto diff MCHC 31.2 g/dL 32.0-3 6.0 low Not Available [facility] [place] [facility] [address], [place], [address], 11/15/2015 06:13:51 11/14/19 16 11/15/2015 CBC w/ auto diff RDW 17.2 % 11.0-1 5.0 high Not Available [facility] [place] [facility] [address], [place], [address], 11/15/2015 06:13:51 11/14/19 16 11/15/2015 CBC w/ auto diff platelet count 188 thous and/u L 140-40 0 normal Not Available [facility] [place] [facility] [address], [place], [address], 11/15/2015 06:13:51 11/14/19 16 11/15/2015 CBC w/ auto diff MPV 8.4 fL 7.5-11 .5 normal Not Available [facility] [address], [place], [address], 11/15/2015 06:13:51 11/14/19 16 11/15/2015 CBC w/ auto diff absolute neutrophils 2178 cells /uL 1500-7 800 normal Not Available [facility] [place] [facility] [address], [place], [address], 11/15/2015 06:13:51 11/14/19 16 11/15/2015 CBC w/ auto diff absolute lymphocytes 1683 cells /uL 850-39 00 normal Not Available [facility] [place] [facility] [address], [place], [address], 11/15/2015 06:13:51 11/14/19 16 11/15/2015 CBC w/ auto diff absolute monocytes 567 cells /uL 200-95 0 normal Not Available [facility] [place] [facility] [address], [place], [address], 11/15/2015 06:13:51 11/14/19 16 11/15/2015 CBC w/ auto diff absolute eosinophils 50 cells /uL 15-500 normal Not Available [facility] [place] [facility] [address], [place], [address], 11/15/2015 06:13:51 11/14/19 16 11/15/2015 CBC w/ auto diff absolute basophils 23 cells /uL 0-200 normal Not Available [facility] [place] [facility] [address], [place], [address], 11/15/2015 06:13:51 11/14/19 16 11/15/2015 CBC w/ auto diff neutrophils 48.4 % normal Not Available [facility] [place] [facility] [address], [place], [address], 11/15/2015 06:13:51 11/14/19 16 11/15/2015 CBC w/ auto diff lymphocytes 37.4 % normal Not Available [facility] [place] [facility] [address], [place], [address], 11/15/2015 06:13:51 11/14/19 16 11/15/2015 CBC w/ auto diff monocytes 12.6 % normal Not Available [facility] [place] [facility] [address], [place], [address], 11/15/2015 06:13:51 11/14/19 16 11/15/2015 CBC w/ auto diff eosinophils 1.1 % normal Not Available [facility] [place] [facility] [address], [place], [address], 11/15/2015 06:13:51 11/14/19 16 11/15/2015 CBC w/ auto diff basophils 0.5 % normal Not Available [facility] [place] [facility] [address], [place], [address], 11/15/2015 06:13:51 11/14/19 16 11/15/2015 HbA1c (hemo globi n A1c), blood estimated average glucose 142.7 mg/dL 97.0-1 40.0 high Not Available [facility] [address] [facility] [address] [place], [address], 11/15/2015 07:54:59 11/14/19 16 11/15/2015 HbA1c (hemo globi n A1c), blood A1C 6.60 % 4.30-5 .40 high : ADA RECOM KATHIA D GUIDE LINES FOR HEMOG LOBIN A1C% 5.7-6 .4% PREDI ABETI C <7.0% REASO NABLE GLYCE EDWINA GOAL FOR NON PREGN ANT ADULT S <8.0 APPRO PRIAT E FOR PATIE NTS WITH HYPOG LYCEM IA OR ADVAN KEITH MICRO /MACR OVASC ULAR COMPL ICATI ONS. Not Available [facility] [address] [facility] [address] [place], [address], 11/15/2015 07:54:59 11/14/19 16 11/16/2015 LDL, direc t, serum direct LDL 65 mg/dL <130 Kirk able range <100 mg/dL for patie nts with CHD or diabe sergio and <70 mg/dL for diabe tic patie nts with known heart disea se. Not Available [facility] [address] [facility] [address] [place], [address], 11/16/2015 11:48:35 11/14/19 16 11/16/2015 1,5-a nhydr ogluc itol, serum or plasm a glycomark (R) 22.2 mcg/m L 7.5-28 .4 Glyco Everett( R) refer ence range s apply to perso ns witho ut diabe sergio. In peopl e with diabe sergio under good to moder ate glyce edwina contr ol (hemo globi n A1c level s 8% or less) , Glyco Everett( R) level s less than 8 mcg/m L sugge st signi fican t glyce edwina varia bilit y, most likel y due to post meal blood gluco se level s incre asing above 180 mg/dL . REPOR T COMME NT: EDINSON MILAN A. Not Available [facility] [address] [place], [address], 11/16/2015 11:48:36 11/14/19 16 11/16/2015 T4, free, serum T4, free 1.0 NG/dL 0.8-1. 8 Not Available [facility] [address] [place], [place] [address]y [address] [place], [address], 11/16/2015 17:35:59 11/14/19 16 11/16/2015 TSH, serum or plasm a TSH 1.83 mIU/L 0.40-4 .50 Not Available [facility] [address] [place] [address] [address] [place], [address], 11/16/2015 17:35:59 11/14/19 16 11/16/2015 C-mick ctive prote in, quant itati ve, serum or plasm a C-reactive protein 0.20 mg/dL <0.80 Pleas e be advis ed that patie nts tanjain g Carbo xypen icill ins may exhib it false ly decre ased C-[place] ctive Prote in level s due to an roosevelt tical inter feren ce in this assay . Not Available [facility] [address] [place] [address] [address] [place], [address], 11/16/2015 17:35:59 11/14/19 16 11/16/2015 eryth rocyt e sedim entat ion rate by august almaraz metho d sed rate by modified emerita 14 mm/h < or = 30 Not Available [facility] [address] [place] [address] [address] [place], [address], 11/16/2015 17:36:00 11/14/19 16 11/16/2015 vitam in B12 + folat e, serum or blood vitamin B12 415 pg/mL 200-11 00 Not Available [facility] [address] [place] [address] [address] [place], [address], 11/16/2015 17:36:00 11/14/19 16 11/16/2015 vitam in B12 + folat e, serum or blood folate, serum 11.7 NG/mL Refer ence Range Low: <3.4 Borde rline : 3.4-5 .4 Vanessa l: >5.4 Not Available [facility] [address] [place] [address] [address] [place], [address], 11/16/2015 17:36:00 11/14/19 16 11/16/2015 iron + TIBC + kimberley tin, serum iron, total 30 mcg/d L 45-160 low Not Available [facility] [address] [place] [address], [address], 11/16/2015 17:36:01 11/14/19 16 11/16/2015 iron + TIBC + kimberley tin, serum iron binding capacity 451 mcg/d L_(ca lc) 250-45 0 high Not Available [facility] [address] [place] [address], [address], 11/16/2015 17:36:01 11/14/19 16 11/16/2015 iron + TIBC + kimberley tin, serum % saturation 7 %_(ca lc) 11-50 low Not Available [facility] [address] [place] [address], [address], 11/16/2015 17:36:01 11/14/19 16 11/16/2015 iron + TIBC + kimberley tin, serum ferritin 18 NG/mL 10-[address] [facility] [address], [place], [address], 11/16/2015 17:36:01 11/14/19 16 11/16/2015 vitam in B1 (thia mine) , blood vitamin B1 (thiamine), blood 79 nmol/ L 78-185 Vitam in suppl ement ation withi n 24 hours prior to blood draw may affec t the accur acy of the resul ts. This test was devel oped and its roosevelt tical perfo rmanc e brenton cteri stics have been deter mined by [employer] s [facility] [place]. It has not been clear ed or appro deana by the U.S. Food and Drug Admin istra tion. This assay has been valid ated pursu ant to the CLIA regul ation s and is used for clini maximo purpo ses. Not Available [facility] [address], [place], [address], 11/19/2015 10:22:49 11/14/19 16 11/16/2015 vitam in B6 (pyri doxin e), plasm a vitamin B6 6.9 NG/mL 2.1-21 .7 Vitam in suppl ement ation withi n 24 hours prior to blood draw may affec t the accur acy of the resul ts. This test was devel oped and its roosevelt tical perfo rmanc e brenton cteri stics have been deter mined by [employer] o[employer] s [employer] [facility], [place]. It has not been clear ed or appro deana by the U.S. Food and Drug Admin istra tion. This assay has been valid ated pursu ant to the CLIA regul ation s and is used for clini maximo purpo ses. Not Available [facility] [address], [place], [address], 11/19/2015 10:22:50 11/14/19 16 11/14/2015 venip unctu re venipuncture CHARGE Not Available [facility] [address], [place], [address], 11/14/2015 13:59:26 11/22/19 16 11/24/2015 cultu re, urine culture, urine, routine SEE NOTE CULTU RE, URINE , ROUTI NE MICRO NUMBE R: [id number] TEST STATU S: FINAL SPECI MEN SOURC E: URINE SPECI MEN QUALI TY: ADEQU ATE RESUL T: Multi ple organ isms prese nt, each less than 10,00 0 CFU/m L. These organ isms, commo nly found on exter nal and inter nal genit bronson, are consi dered to be colon izers . No furth er testi ng perfo rmed. Not Available [facility] [address], [place], [address], 11/24/2015 05:10:54 11/22/19 16 11/24/2015 cultu re, urine culture, urine, routine SEE NOTE CULTU RE, URINE , ROUTI NE MICRO NUMBE R: [id number] TEST STATU S: FINAL SPECI MEN SOURC E: URINE SPECI MEN QUALI TY: ADEQU ATE RESUL T: Multi ple organ isms prese nt, each less than 10,00 0 CFU/m L. These organ isms, commo nly found on exter nal and inter nal genit bronson, are consi dered to be colon izers . No furth er testi ng perfo rmed. Not Available [facility] [address], [place], [address], 11/29/2015 06:33:11 02/16/19 17 02/18/2016 CMP, serum or plasm a glucose 99 mg/dL 65-99 normal Fasti ng refer ence inter inocencio Not Available [facility] [address] [facility] [address] [place], [address], 02/18/2016 09:59:52 02/16/1902/18/2016 CMP, serum or plasm a urea nitrogen (BUN) 14 mg/dL 7-25 normal Not Available [facility] [address] [facility] [address] [place], [address], 02/18/2016 09:59:52 02/16/19 17 02/18/2016 CMP, serum or plasm a creatinine 0.88 mg/dL 0.50-1 .05 normal For patie nts >49 years of age, the refer ence limit for Creat inine is appro ximat mark 13% highe r for peopl e ident ified as Afric an-Am hong n. Not Available [facility] [address] [facility] [address] [place], [address], 02/18/2016 09:59:52 02/16/1902/18/2016 CMP, serum or plasm a eGFR non-afr. citizen of [place] 73 mL/mi n/1.7 3m2 > or = 60 normal Not Available [facility] [address] [facility] [address] [place], [address], 02/18/2016 09:59:52 02/16/1902/18/2016 CMP, serum or plasm a eGFR 85 mL/mi n/1.7 3m2 > or = 60 normal Not Available [facility] [address] [facility] [address] [place], [address], 02/18/2016 09:59:52 02/16/1902/18/2016 CMP, serum or plasm a BUN/creatini ne ratio NOT APPLIC ABLE (calc ) 6-22 Not Available [facility] [address] [facility] [address] [place], [address], 02/18/2016 09:59:52 02/16/1902/18/2016 CMP, serum or plasm a sodium 140 mmol/ L 135-14 6 normal Not Available [facility] [address] [place], [place] [address]y [address], [place], [address], 02/18/2016 09:59:52 02/16/1902/18/2016 CMP, serum or plasm a potassium 3.9 mmol/ L 3.5-5. 3 normal Not Available [facility] [address] [place], [place] [address]y [address], [place], [address], 02/18/2016 09:59:52 02/16/1902/18/2016 CMP, serum or plasm a chloride 103 mmol/ L 98-110 normal Not Available [facility] [address] [place], [place] [address]y [address] [place], [address], 02/18/2016 09:59:52 02/16/1902/18/2016 CMP, serum or plasm a carbon dioxide 21 mmol/ L 20-31 normal Not Available [facility] [address] [place], [place] [address]y [address] [place], [address], 02/18/2016 09:59:52 02/16/1902/18/2016 CMP, serum or plasm a calcium 9.7 mg/dL 8.6-10 .4 normal Not Available [facility] [address] [place], [place] [address]y [address] [place], [address], 02/18/2016 09:59:52 02/16/1902/18/2016 CMP, serum or plasm a protein, total 6.6 g/dL 6.1-8. 1 normal Not Available [facility] [address] [place], [place] [address]y [address], [place], [address], 02/18/2016 09:59:52 02/16/1902/18/2016 CMP, serum or plasm a albumin 4.0 g/dL 3.6-5. 1 normal Not Available [facility] [address] [facility] [address], [place], [address], 02/18/2016 09:59:52 02/16/1902/18/2016 CMP, serum or plasm a globulin 2.6 g/dL_ (calc ) 1.9-3. 7 normal Not Available [facility] [address] [place], [place] [address] [address] [place], [address], 02/18/2016 09:59:52 02/16/1902/18/2016 CMP, serum or plasm a albumin/glob ulin ratio 1.5 (calc ) 1.0-2. 5 normal Not Available [facility] [address] [place], [place] [address]y [address], [place], [address], 02/18/2016 09:59:52 02/16/1902/18/2016 CMP, serum or plasm a bilirubin, total 0.7 mg/dL 0.2-1. 2 normal Not Available [facility] [address] [place], [address], 02/18/2016 09:59:52 02/16/1902/18/2016 CMP, serum or plasm a alkaline phosphatase 54 U/L 33-130 normal Not Available [facility] [address] [place] [address] [address] [place], [address], 02/18/2016 09:59:52 02/16/1902/18/2016 CMP, serum or plasm a AST 22 U/L 10-35 normal Not Available [facility] [address] [place], [place] [address] [address] [place], [address], 02/18/2016 09:59:52 02/16/1902/18/2016 CMP, serum or plasm a ALT 32 U/L 6-29 high Not Available [facility] [address] [facility] [address] [place], [address], 02/18/2016 09:59:52 02/16/19 17 02/18/2016 eryth rocyt e sedim entat ion rate by august almaraz metho d sed rate by modified lyndseyren 2 mm/h < or = 30 normal Not Available [facility] [address] [place], [place] [address]y [address], [place], [address], 02/18/2016 09:59:53 02/16/19 17 02/19/2016 urina lysis , compl ete color DARK YELLOW yellow normal Not Available [facility] [address] [place], [place] [address]y [address], [place], [address], 02/19/2016 16:55:52 02/16/19 17 02/19/2016 urina lysis , compl ete appearance CLEAR clear normal Not Available [facility] [address] [place], [place] [address]y [address] [place], [address], 02/19/2016 16:55:52 02/16/19 17 02/19/2016 urina lysis , compl ete specific gravity 1.018 1.001- 1.035 normal Not Available [facility] [address] [place], [place] [address]y [address], [place], [address], 02/19/2016 16:55:52 02/16/19 17 02/19/2016 urina lysis , compl ete pH 6.0 5.0-8. 0 normal Not Available [facility] [address] [place], [place] [address]y [address], [place], [address], 02/19/2016 16:55:52 02/16/19 17 02/19/2016 urina lysis , compl ete glucose NEGATI VE negati ve normal Not Available [facility] [address] [place] [address]y [address], [place], [address], 02/19/2016 16:55:52 02/16/1902/19/2016 urina lysis , compl ete bilirubin NEGATI VE negati ve normal Not Available [facility] [address] [facility] [address], [place], [address], 02/19/2016 16:55:52 02/16/19 17 02/19/2016 urina lysis , compl ete ketones NEGATI VE negati ve normal Not Available [facility] [address] [facility] [address], [place], [address], 02/19/2016 16:55:52 02/16/19 17 02/19/2016 urina lysis , compl ete occult blood NEGATI VE negati ve normal Not Available [facility] [address] [facility] [address], [place], [address], 02/19/2016 16:55:52 02/16/19 17 02/19/2016 urina lysis , compl ete protein NEGATI VE negati ve normal Not Available [facility] [address], [place], [address], 02/19/2016 16:55:52 02/16/19 17 02/19/2016 urina lysis , compl ete nitrite NEGATI VE negati ve normal Not Available [facility] [address] [place], [place] [address]y [address], [place], [address], 02/19/2016 16:55:52 02/16/19 17 02/19/2016 urina lysis , compl ete leukocyte esterase 1+ negati ve abnormal Not Available [facility] [address], [place], [address], 02/19/2016 16:55:52 02/16/19 17 02/19/2016 urina lysis , compl ete WBC 0-5 /hpf < or = 5 normal Not Available [facility] [address] [facility] [address] [address], [place], [address], 02/19/2016 16:55:52 02/16/19 17 02/19/2016 urina lysis , compl ete RBC NONE SEEN /hpf < or = 2 normal Not Available [facility] [address] [place] [address], [address], 02/19/2016 16:55:52 02/16/19 17 02/19/2016 urina lysis , compl ete squamous epithelial cells 0-5 /hpf < or = 5 Not Available [facility] [address] [place] [address], [address], 02/19/2016 16:55:52 02/16/19 17 02/19/2016 urina lysis , compl ete bacteria NONE SEEN /hpf none seen normal Not Available [facility] [address] [place] [address], [address], 02/19/2016 16:55:52 02/16/19 17 02/19/2016 urina lysis , compl ete hyaline cast NONE SEEN /lpf none seen normal Not Available [facility] [address] [place] [address], [address], 02/19/2016 16:55:52 02/16/19 17 02/19/2016 cultu re, urine culture, urine, routine SEE NOTE CULTU RE, URINE , ROUTI NE MICRO NUMBE R: [id number] TEST STATU S: FINAL SPECI MEN SOURC E: URINE SPECI MEN QUALI TY: ADEQU ATE RESUL T: No Growt h Not Available [facility] [address] [place] [address], [address], 02/19/2016 16:55:53 02/16/19 17 02/19/2016 cultu re, urine reflexive urine culture CULTUR E INDICA LASHELL - RESULT S TO FOLLOW Not Available [facility] [address] [place] [address], [place], [address], 02/20/2016 08:18:09 02/16/1902/20/2016 HbA1c (hemo globi n A1c), blood hemoglobin A1C 6.3 %_of_ total _HGB <5.7 high Accor ding to ADA guide lines , hemog lobin A1c <7.0% repre sents optim al contr ol in non-p regna nt diabe tic patie nts. Diffe rent metri cs may apply to speci fic patie nt popul ation s. [facility]ds of Medic al Care in Diabe sergio-2 013. Diabe sergio Care. 2013; 36:s1 1-s66 For the purpo se of scree kevin for the prese nce of diabe sergio <5.7% Consi stent with the absen ce of diabe sergio 5.7-6 .4% Consi stent with incre ased risk for diabe sergio (pred iabet es) >or=6 .5% Consi stent with diabe sergio This assay resul t is consi stent with a highe r risk of diabe sergio. Curre ntly, no conse nsus exist s for use of hemog lobin A1c for diagn osis of diabe sergio for child linda. Not Available [facility] [address] [place], [address], 02/20/2016 18:02:08 02/16/19 17 02/20/2016 CBC white blood cell count 6.6 thous and/u L 3.8-10 .8 normal Not Available [facility] [address] [place], [address], 02/20/2016 18:02:09 02/16/19 17 02/20/2016 CBC red blood cell count 5.06 bere on/uL 3.80-5 .10 normal Not Available [facility] [address] [place], [address], 02/20/2016 18:02:09 02/16/19 17 02/20/2016 CBC hemoglobin 13.9 g/dL 11.7-1 5.5 normal Not Available [facility] [address] [place], [address], 02/20/2016 18:02:02/16/19 17 02/20/2016 CBC hematocrit 43.5 % 35.0-4 5.0 normal Not Available [facility] [address], [place], [place], [address], 02/20/2016 18:02:02/16/19 17 02/20/2016 CBC MCV 85.9 fL 80.0-1 00.0 normal Not Available [facility] [address] [facility] [address], [place], [address], 02/20/2016 18:02:02/16/19 17 02/20/2016 CBC MCH 27.6 pg 27.0-3 3.0 normal Not Available [facility] [address] [place], [place] [address]y [address] [place], [address], 02/20/2016 18:02:02/16/19 17 02/20/2016 CBC MCHC 32.1 g/dL 32.0-3 6.0 normal Not Available [facility] [address] [place], [place] [address]y [address] [place], [address], 02/20/2016 18:02:02/16/19 17 02/20/2016 CBC RDW 16.2 % 11.0-1 5.0 high Not Available [facility] [address] [place], [place] [address]y [address], [place], [address], 02/20/2016 18:02:02/16/19 17 02/20/2016 CBC platelet count 260 thous and/u L 140-40 0 normal Not Available [facility] [address], [place], [address], 02/20/2016 18:02:02/16/19 17 02/20/2016 CBC MPV 9.1 fL 7.5-11 .5 normal Not Available [facility] [address], [place], [address], 02/20/2016 18:02:02/16/19 17 02/20/2016 CBC absolute neutrophils 3835 cells /uL 1500-7 800 normal Not Available [facility] [address], [place], [address], 02/20/2016 18:02:02/16/19 17 02/20/2016 CBC absolute lymphocytes 2138 cells /uL 850-39 00 normal Not Available [facility] [address], [place], [address], 02/20/2016 18:02:02/16/19 17 02/20/2016 CBC absolute monocytes 370 cells /uL 200-95 0 normal Not Available [facility] [address], [place], [address], 02/20/2016 18:02:02/16/19 17 02/20/2016 CBC absolute eosinophils 224 cells /uL 15-500 normal Not Available [facility] [address], [place], [address], 02/20/2016 18:02:02/16/19 17 02/20/2016 CBC absolute basophils 33 cells /uL 0-200 normal Not Available [facility] [address], [place], [address], 02/20/2016 18:02:02/16/19 17 02/20/2016 CBC neutrophils 58.1 % normal Not Avai lable [facility] [address], [place], [address], 02/20/2016 18:02:02/16/19 17 02/20/2016 CBC lymphocytes 32.4 % normal Not Avai lable [facility] [address], [place], [address], 02/20/2016 18:02:02/16/19 17 02/20/2016 CBC monocytes 5.6 % normal Not Availa ble [facility] [address], [place], [address], 02/20/2016 18:02:02/16/19 17 02/20/2016 CBC eosinophils 3.4 % normal Not Avai lable [facility] [address], [place], [address], 02/20/2016 18:02:02/16/19 17 02/20/2016 CBC basophils 0.5 % normal Not Availa ble [facility] [address] [facility] [address], [place], [address], 02/20/2016 18:02:02/16/19 17 02/20/2016 1,5-a nhydr ogluc itol, serum or plasm a glycomark (R) 24.0 mcg/m L 7.5-28 .4 normal Glyco Everett( R) refer ence range s apply to perso ns witho ut diabe sergio. In peopl e with diabe sergio under good to moder ate glyce edwina contr ol (hemo globi n A1c level s 8% or less) , Glyco Everett( R) level s less than 8 mcg/m L sugge st signi fican t glyce edwina varia bilit y, most likel y due to post meal blood gluco se level s incre asing above 180 mg/dL . Not Available [facility] [address], [place], [address], 02/20/2016 18:02:10 02/16/19 17 02/20/2016 vitam in B12 + folat e, serum or blood vitamin B12 441 pg/mL 200-11 00 normal Not Available [facility] [address], [place], [address], 02/20/2016 18:02:10 02/16/19 17 02/20/2016 vitam in B12 + folat e, serum or blood folate, serum 10.9 NG/mL normal Refer ence Range Low: <3.4 Borde rline : 3.4-5 .4 Vanessa l: >5.4 Not Available [facility] [address] [facility] [address], [place], [address], 02/20/2016 18:02:10 02/16/19 17 02/20/2016 iron + TIBC + kimberley tin, serum iron, total 90 mcg/d L 45-160 normal Not Available [facility] [address] [facility] [address], [place], [address], 02/20/2016 18:02:10 02/16/19 17 02/20/2016 iron + TIBC + kimberley tin, serum iron binding capacity 397 mcg/d L_(ca lc) 250-45 0 normal Not Available [facility] [address] [facility] [address], [place], [address], 02/20/2016 18:02:10 02/16/19 17 02/20/2016 iron + TIBC + kimberley tin, serum % saturation 23 %_(ca lc) 11-50 normal Not Available [facility] [address] [facility] [address] [place], [address], 02/20/2016 18:02:10 02/16/1902/20/2016 iron + TIBC + kimberley tin, serum ferritin 26 NG/mL 10-232 normal Not Available [facility] [address] [facility] [address], [place], [address], 02/20/2016 18:02:10 02/16/19 17 02/20/2016 lipid panel , serum cholesterol, total 130 mg/dL 125-20 0 normal Not Available [facility] [address], [place], [address], 02/20/2016 18:02:11 02/16/1902/20/2016 lipid panel , serum HDL cholesterol 47 mg/dL > or = 46 normal Not Available [facility] [address] [facility] [address], [place], [address], 02/20/2016 18:02:11 02/16/19 17 02/20/2016 lipid panel , serum triglyceride s 92 mg/dL <150 normal Not Available [facility] [address] [facility] [address], [place], [address], 02/20/2016 18:02:11 02/16/1902/20/2016 lipid panel , serum direct LDL 70 mg/dL <130 normal Kirk able range <100 mg/dL for patie nts with CHD or diabe sergio and <70 mg/dL for diabe tic patie nts with known heart disea se. Not Available [facility] [address] [facility] [address] [facility], [place], [address], 02/20/2016 18:02:11 02/16/1902/20/2016 lipid panel , serum chol/HDLC ratio 2.8 (calc ) < or = 5.0 normal Not Available [facility] [address] [facility] [address] [place], [address], 02/20/2016 18:02:11 02/16/1902/20/2016 lipid panel , serum non HDL cholesterol 83 mg/dL _(maximo c) normal Targe t for non-H DL troy stero l is 30 mg/dL highe r than LDL troy stero l targe t. Not Available [facility] [address] [facility] [address], [place], [address], 02/20/2016 18:02:11 02/16/19 17 02/17/2016 venip unctu re results Compl ete Not Available [facility] [address], [place], [address], 02/17/2016 15:55:13 02/21/19 17 02/23/2016 fecal occul t blood , immun oassa y, stool immunoassay occult blood NEGATI VE Not Available [facility] [address] [facility] [address], [place], [address], 02/23/2016 08:43:53 02/21/19 17 02/24/2016 micro album in/cr eatin ine, ratio , 24h urine microalbumin , 24 hour ur 7 mg/24 _h <30 normal Not Available [facility] [address] [facility] [address], [place], [address], 02/24/2016 13:00:54 02/21/19 17 02/24/2016 micro album in/cr eatin ine, ratio , 24h urine microalbumin , 24 hour ur 5 mcg/m in <20 normal The ADA defin es abnor malit ies in album in excre tion as follo ws: Categ ory Resul t (mg/2 4 h) (mcg/ min) Vanessa l <30 <20 Micro album inuri a 30-29 9 20-19 9 Clini maximo album inuri a > OR = 300 > OR = 200 The ADA recom mends that at least two of three speci mens colle cted withi n a 3-6 month perio d be abnor mal befor e consi ryder g a patie nt to be withi n a diagn ostic categ ory. Not Available [facility] [address] [facility] [address], [place], [address], 02/24/2016 13:00:54 02/21/19 17 02/24/2016 micro album in/cr eatin ine, ratio , 24h urine creatinine, 24 hour urine 1.45 g/24_ h 0.63-2 .50 normal Not Available [facility] [address], [place], [address], 02/24/2016 13:00:54 03/27/19 17 03/28/2016 CBC WBC 6.1 x10^3 /uL 4.4-11 .0 Not Available [facility] [address], [place], [address], 03/28/2016 12:28:12 03/27/19 17 03/28/2016 CBC RBC 4.84 x10^6 /uL 4.50-5 .10 Not Available [facility] [address], [place], [address], 03/28/2016 12:28:12 03/27/19 17 03/28/2016 CBC HGB 13.5 g/dL 12.3-1 5.3 Not Available [facility] [address] [place] [address] [address], [place], [address], 03/28/2016 12:28:12 03/27/19 17 03/28/2016 CBC HCT 41.5 % 35.9-4 4.6 Not Available [facility] [address], [place], [address], 03/28/2016 12:28:12 03/27/19 17 03/28/2016 CBC MCV 85.6 fL 80.0-9 6.0 Not Available [facility] [address] [place] [address] [address], [place], [address], 03/28/2016 12:28:12 03/27/19 17 03/28/2016 CBC MCH 27.9 pg 27.5-3 3.2 Not Available [facility] [address], [place], [address], 03/28/2016 12:28:12 03/27/19 17 03/28/2016 CBC MCHC 32.5 g/dL 33.4-3 5.5 low Not Available [facility] [address], [place], [address], 03/28/2016 12:28:12 03/27/19 17 03/28/2016 CBC RDW 14.2 % 11.6-1 3.7 high Not Available [facility], [place], [address], 03/28/2016 12:28:12 03/27/19 17 03/28/2016 CBC plt 249 x10^3 /uL 150-45 0 Not Available [facility], [place], [address], 03/28/2016 12:28:12 03/27/19 17 03/28/2016 CBC MPV 9.6 fL 7.4-10 .4 Not Available [facility] [address], [place], [address], 03/28/2016 12:28:12 03/27/19 17 03/28/2016 CBC neut # 3.4 x10^3 /uL 1.5-7. 2 Not Available [facility], [place], [address], 03/28/2016 12:28:12 03/27/19 17 03/28/2016 CBC lymph# 1.9 x10^3 /uL 0.7-4. 9 Not Available [facility] [address] [place] [address] [address], [place], [address], 03/28/2016 12:28:12 03/27/19 17 03/28/2016 CBC mono# 0.5 x10^3 /uL 0.1-0. 9 Not Available [facility], [place], [address], 03/28/2016 12:28:12 03/27/19 17 03/28/2016 CBC eos # 0.2 x10^3 /uL 0.0-0. 4 Not Available [facility] [address], [place], [address], 03/28/2016 12:28:12 03/27/19 17 03/28/2016 CBC baso # 0.1 x10^3 /uL 0.0-0. 2 Not Available [facility] [address], [place], [address], 03/28/2016 12:28:12 03/27/19 17 03/28/2016 CBC neut % 55.5 % 42.2-7 5.2 Not Available [facility] [address], [place], [address], 03/28/2016 12:28:12 03/27/19 17 03/28/2016 CBC mono% 7.9 % 1.7-9. 3 Not Available [facility] [address], [place], [address], 03/28/2016 12:28:12 03/27/1903/28/2016 CBC eos% 3.8 % 1.0-6. 0 Not Available [facility] [address], [place], [address], 03/28/2016 12:28:12 03/27/1903/28/2016 CBC baso% 0.9 % 0.0-4. 0 Not Available [facility] [address], [place], [address], 03/28/2016 12:28:12 03/27/1903/28/2016 CBC lymph % 31.9 % 20.5-5 1.1 Not Available [facility] [address], [place], [address], 03/28/2016 12:28:12 03/27/19 17 03/28/2016 eryth rocyt e sedim entat ion rate by august rgren metho d sed rate 11 mm/HR 0-[address] [facility] [address] [facility] [address], [place], [address], 03/28/2016 12:28:13 03/27/19 17 03/28/2016 CMP, serum or plasm a sodium 139 mmol/ L 136-14 5 Not Available [facility] [address] [place], [place] [address]y [address], [place], [address], 03/28/2016 12:28:13 03/27/19 17 03/28/2016 CMP, serum or plasm a potassium 4.2 mmol/ L 3.6-5. 2 Not Available [facility] [address] [place], [place] [address]y [address] [place], [address], 03/28/2016 12:28:13 03/27/19 17 03/28/2016 CMP, serum or plasm a chloride 102 mmol/ L 98-108 Not Available [facility] [address] [place], [place] [address] [address] [place], [address], 03/28/2016 12:28:13 03/27/19 17 03/28/2016 CMP, serum or plasm a carbon dioxide 29 mmol/ L 18-33 Not Available [facility] [address] [place], [place] [address] [address] [place], [address], 03/28/2016 12:28:13 03/27/1903/28/2016 CMP, serum or plasm a glucose 119 mg/dL 65-99 high Not Available [facility] [address] [facility] [address] [place], [address], 03/28/2016 12:28:13 03/27/19 17 03/28/2016 CMP, serum or plasm a BUN 23 mg/dL 7-18 high Not Available [facility] [address] [facility] [address] [place], [address], 03/28/2016 12:28:13 03/27/19 17 03/28/2016 CMP, serum or plasm a creatinine 0.8 mg/dL 0.8-1. 3 Not Available [facility] [address] [place], [place] [address]y [address], [place], [address], 03/28/2016 12:28:13 03/27/1903/28/2016 CMP, serum or plasm a BUN/creat ratio 28.8 calc 10.0-2 5.0 high Not Available [facility] [address] [place], [place] [address]y [address], [place], [address], 03/28/2016 12:28:13 03/27/19 17 03/28/2016 CMP, serum or plasm a calcium 9.7 mg/dL 8.5-10 .6 Not Available [facility] [address] [place], [place] [address]y [address], [place], [address], 03/28/2016 12:28:13 03/27/19 17 03/28/2016 CMP, serum or plasm a total protein 6.8 g/dL 6.4-8. 1 Not Available [facility] [address] [place], [place] [address], [place], [address], 03/28/2016 12:28:13 03/27/19 17 03/28/2016 CMP, serum or plasm a albumin 4.2 g/dL 3.3-5. 5 Not Available [facility] [address] [place], [place] [address], [place], [address], 03/28/2016 12:28:13 03/27/1903/28/2016 CMP, serum or plasm a globulin 2.6 g/dL 1.3-4. 0 Not Available [facility] [address] [place], [place] [address] [address] [place], [address], 03/28/2016 12:28:13 03/27/19 17 03/28/2016 CMP, serum or plasm a A/G ratio 1.6 calc 1.0-2. 8 Not Available [facility] [address] [place] [address], [address], 03/28/2016 12:28:13 03/27/19 17 03/28/2016 CMP, serum or plasm a alk. phosphatase 71 U/L 50-128 Not Available [facility] [address] [place] [address], [address], 03/28/2016 12:28:13 03/27/1903/28/2016 CMP, serum or plasm a ALT (SGPT) 29 U/L 10-47 Not Available [facility] [address] [place] [address], [address], 03/28/2016 12:28:13 03/27/19 17 03/28/2016 CMP, serum or plasm a AST (SGOT) 18 U/L 11-38 Not Available [facility] [address] [place] [address], [address], 03/28/2016 12:28:13 03/27/19 17 03/28/2016 CMP, serum or plasm a total bilirubin 0.52 mg/dL 0.20-1 .60 Not Available [facility] [address] [place] [address], [address], 03/28/2016 12:28:13 03/27/1903/28/2016 CMP, serum or plasm a GFR >60.0 >=60.0 IF PATIE NT IS AFRIC AN AMERI CAN, MULTI PLY RESUL T BY 1.21 Not Available [facility] [address] [place] [address] [address] [place], [address], 03/28/2016 12:28:13 03/27/1903/28/2016 C-mick ctive prote in, quant itati ve, serum or plasm a CRP 0.08 mg/dL 0.02-1 .00 Not Available [facility] [address] [place] [address] [address] [facility], [place], [address], 03/28/2016 12:28:14 03/27/19 17 03/27/2016 venip unctu re results Compl ete Not Available [facility] [address] [place] [address], [address], 03/27/2016 13:15:17 05/19/19 17 05/18/2016 urina lysis , compl ete color YELLOW Not Available [facility] [address] [place] [address], [address], 05/18/2016 19:19:41 05/19/19 17 05/18/2016 urina lysis , compl ete appearance CLEAR clear Not Available [facility] [address] [place] [address], [address], 05/18/2016 19:19:41 05/19/19 17 05/18/2016 urina lysis , compl ete specific gravity 1.023 Not Available [facility] [address] [place] [address], [address], 05/18/2016 19:19:41 05/19/19 17 05/18/2016 urina lysis , compl ete pH 6.0 Not Available [facility] [address] [place] [address], [address], 05/18/2016 19:19:41 05/19/19 17 05/18/2016 urina lysis , compl ete glucose NEGATI VE negati ve Not Available [facility] [address] [place] [address] [address] [place], [address], 05/18/2016 19:19:41 05/19/19 17 05/18/2016 urina lysis , compl ete bilirubin NEGATI VE negati ve Not Available [facility] [address] [place] [address], [address], 05/18/2016 19:19:41 05/19/19 17 05/18/2016 urina lysis , compl ete ketone NEGATI VE negati ve Not Available [facility] [address] [place] [address], [address], 05/18/2016 19:19:41 05/19/19 17 05/18/2016 urina lysis , compl ete blood NEGATI VE negati ve Not Available [facility] [address] [place] [address], [address], 05/18/2016 19:19:41 05/19/19 17 05/18/2016 urina lysis , compl ete protein NEGATI VE negati ve Not Available [facility] [address] [place] [address], [address], 05/18/2016 19:19:41 05/19/19 17 05/18/2016 urina lysis , compl ete urobilinogen NORMAL Not Available [facility] [address] [place] [address], [address], 05/18/2016 19:19:41 05/19/19 17 05/18/2016 urina lysis , compl ete nitrite NEGATI VE negati ve Not Available [facility] [address] [place] [address], [address], 05/18/2016 19:19:41 05/19/19 17 05/18/2016 urina lysis , compl ete leukocytes NEGATI VE negati ve A cultu re will refle x when the follo wing crite marcy is met: posit percy nitri te small leuko cytes or great er or >6 WBC/h pf 4+ bacte marcy on micro scopi c exam any amoun t of yeast on micro scopi c exam. Not Available [facility] [address] [facility] [address] [place], [address], 05/18/2016 19:19:41 05/19/19 17 05/18/2016 HbA1c (hemo globi n A1c), blood estimated average glucose 125.5 mg/dL 97.0-1 40.0 Not Available [facility] [address] [facility] [address] [place], [address], 05/18/2016 20:36:41 05/19/19 17 05/18/2016 HbA1c (hemo globi n A1c), blood A1C 6.00 % 4.30-5 .60 high : ADA RECOM KATHIA D GUIDE LINES FOR HEMOG LOBIN A1C% 5.7-6 .4% PREDI ABETI C <7.0% REASO NABLE GLYCE EDWINA GOAL FOR NON PREGN ANT ADULT S <8.0 APPRO PRIAT E FOR PATIE NTS WITH HYPOG LYCEM IA OR ADVAN KEITH MICRO /MACR OVASC ULAR COMPL ICATI ONS. Not Available [facility] [address] [facility] [address] [place], [address], 05/18/2016 20:36:41 05/19/19 17 05/19/2016 CBC white blood cell count 6.3 thous and/u L 3.8-10 .8 normal Not Available [facility] [address] [place] [address] [address] [place], [address], 05/19/2016 01:49:23 05/19/19 17 05/19/2016 CBC red blood cell count 4.70 bere on/uL 3.80-5 .10 normal Not Available [facility] [address] [facility] [address] [place], [address], 05/19/2016 01:49:23 05/19/19 17 05/19/2016 CBC hemoglobin 13.6 g/dL 11.7-1 5.5 normal Not Available [facility] [address] [place] [address] [address] [place], [address], 05/19/2016 01:49:23 05/19/1905/19/2016 CBC hematocrit 40.2 % 35.0-4 5.0 normal Not Available [facility] [address] [place] [address] [address], [place], [address], 05/19/2016 01:49:23 05/19/1905/19/2016 CBC MCV 85.5 fL 80.0-1 00.0 normal Not Available [facility] [address] [place] [address] [address] [place], [address], 05/19/2016 01:49:23 05/19/1905/19/2016 CBC MCH 28.9 pg 27.0-3 3.0 normal Not Available [facility] [address] [place] [address] [address] [place], [address], 05/19/2016 01:49:23 05/19/1905/19/2016 CBC MCHC 33.8 g/dL 32.0-3 6.0 normal Not Available [facility] [address] [place] [address] [address] [place], [address], 05/19/2016 01:49:23 05/19/1905/19/2016 CBC RDW 13.0 % 11.0-1 5.0 normal Not Available [facility] [address] [place] [address] [address] [place], [address], 05/19/2016 01:49:23 05/19/1905/19/2016 CBC platelet count 259 thous and/u L 140-40 0 normal Not Available [facility] [address] [place] [address] [address], [place], [address], 05/19/2016 01:49:23 05/19/1905/19/2016 CBC MPV 11.2 fL 7.5-12 .5 normal Not Available [facility] [address], [place], [address], 05/19/2016 01:49:23 05/19/19 17 05/19/2016 CBC absolute neutrophils 3686 cells /uL 1500-7 800 normal Not Available [facility] [address], [place], [address], 05/19/2016 01:49:23 05/19/19 17 05/19/2016 CBC absolute lymphocytes 1922 cells /uL 850-39 00 normal Not Available [facility] [address], [place], [address], 05/19/2016 01:49:23 05/19/1905/19/2016 CBC absolute monocytes 410 cells /uL 200-95 0 normal Not Available [facility] [address] [place], [place] [address]y [address], [place], [address], 05/19/2016 01:49:23 05/19/1905/19/2016 CBC absolute eosinophils 233 cells /uL 15-500 normal Not Available [facility] [address] [place], [address], 05/19/2016 01:49:23 05/19/1905/19/2016 CBC absolute basophils 50 cells /uL 0-200 normal Not Available [facility] [address] [place], [address], 05/19/2016 01:49:23 05/19/1905/19/2016 CBC neutrophils 58.5 % normal Not Avai lable [facility] [address], [place], [address], 05/19/2016 01:49:23 05/19/19 17 05/19/2016 CBC lymphocytes 30.5 % normal Not Avai lable [facility] [address], [place], [address], 05/19/2016 01:49:23 05/19/19 17 05/19/2016 CBC monocytes 6.5 % normal Not Availa ble [facility] [address] [place], [address], 05/19/2016 01:49:23 05/19/1905/19/2016 CBC eosinophils 3.7 % normal Not Avai lable [facility] [address] [facility] [address], [place], [address], 05/19/2016 01:49:23 05/19/1905/19/2016 CBC basophils 0.8 % normal Not Availa ble [facility] [address] [facility] [address] [place], [address], 05/19/2016 01:49:23 05/19/1905/21/2016 CMP, serum or plasm a glucose 100 mg/dL 65-99 high Fasti ng refer ence inter inocencio For someo ne witho ut known diabe sergio, a gluco se value betwe en 100 and 125 mg/dL is consi stent with predi abete s and shoul d be confi rmed with a follo w-up test. Not Available [facility] [address] [facility] [address] [place], [address], 05/21/2016 12:58:37 05/19/1905/21/2016 CMP, serum or plasm a urea nitrogen (BUN) 25 mg/dL 7-25 normal Not Available [facility] [address] [facility] [address], [place], [address], 05/21/2016 12:58:37 05/19/1905/21/2016 CMP, serum or plasm a creatinine 0.73 mg/dL 0.50-1 .05 normal For patie nts >49 years of age, the refer ence limit for Creat inine is appro ximat mark 13% highe r for peopl e ident ified as Afric an-Am hong n. Not Available [facility] [address] [place], [place] [address]y [address] [place], [address], 05/21/2016 12:58:37 05/19/19 17 05/21/2016 CMP, serum or plasm a eGFR non-afr. citizen of [place] 91 mL/mi n/1.7 3m2 > or = 60 normal Not Available [facility] [address] [place], [place] [address]y [address] [place], [address], 05/21/2016 12:58:37 05/19/19 17 05/21/2016 CMP, serum or plasm a eGFR 106 mL/mi n/1.7 3m2 > or = 60 normal Not Available [facility] [address] [place] [address] [address] [place], [address], 05/21/2016 12:58:37 05/19/19 17 05/21/2016 CMP, serum or plasm a BUN/creatini ne ratio NOT APPLIC ABLE (calc ) 6-22 Not Available [facility] [address] [place], [place] [address]y [address] [place], [address], 05/21/2016 12:58:37 05/19/19 17 05/21/2016 CMP, serum or plasm a sodium 138 mmol/ L 135-14 6 normal Not Available [facility] [address] [place] [address] [address] [place], [address], 05/21/2016 12:58:37 05/19/19 17 05/21/2016 CMP, serum or plasm a potassium 4.3 mmol/ L 3.5-5. 3 normal Not Available [facility] [address] [place], [place] [address]y [address] [place], [address], 05/21/2016 12:58:37 05/19/19 17 05/21/2016 CMP, serum or plasm a chloride 102 mmol/ L 98-110 normal Not Available [facility] [address] [place] [address], [address], 05/21/2016 12:58:37 05/19/19 17 05/21/2016 CMP, serum or plasm a carbon dioxide 25 mmol/ L 20-31 normal Not Available [facility] [address] [place] [address], [address], 05/21/2016 12:58:37 05/19/19 17 05/21/2016 CMP, serum or plasm a calcium 9.3 mg/dL 8.6-10 .4 normal Not Available [facility] [address] [place] [address], [address], 05/21/2016 12:58:37 05/19/19 17 05/21/2016 CMP, serum or plasm a protein, total 6.8 g/dL 6.1-8. 1 normal Not Available [facility] [address] [place] [address], [address], 05/21/2016 12:58:37 05/19/19 17 05/21/2016 CMP, serum or plasm a albumin 4.2 g/dL 3.6-5. 1 normal Not Available [facility] [address] [place] [address], [address], 05/21/2016 12:58:37 05/19/19 17 05/21/2016 CMP, serum or plasm a globulin 2.6 g/dL_ (calc ) 1.9-3. 7 normal Not Available [facility] [address] [place] [address], [address], 05/21/2016 12:58:37 05/19/19 17 05/21/2016 CMP, serum or plasm a albumin/glob ulin ratio 1.6 (calc ) 1.0-2. 5 normal Not Available [facility] [address] [place] [address], [address], 05/21/2016 12:58:37 05/19/19 17 05/21/2016 CMP, serum or plasm a bilirubin, total 0.7 mg/dL 0.2-1. 2 normal Not Available [facility] [address] [place] [address] [address] [place], [address], 05/21/2016 12:58:37 05/19/19 17 05/21/2016 CMP, serum or plasm a alkaline phosphatase 50 U/L 33-130 normal Not Available [facility] [address] [place] [address], [address], 05/21/2016 12:58:37 05/19/19 17 05/21/2016 CMP, serum or plasm a AST 21 U/L 10-35 normal Not Available [facility] [address] [place] [address], [address], 05/21/2016 12:58:37 05/19/19 17 05/21/2016 CMP, serum or plasm a ALT 30 U/L 6-29 high Not Available [facility] [address] [place] [address], [address], 05/21/2016 12:58:37 05/19/1905/21/2016 iron + TIBC + kimberley tin, serum iron, total 66 mcg/d L 45-160 normal Not Available [facility] [address] [place] [address] [address] [place], [address], 05/21/2016 12:58:37 05/19/1905/21/2016 iron + TIBC + kimberley tin, serum iron binding capacity 434 mcg/d L_(ca lc) 250-45 0 normal Not Available [facility] [address] [place] [address], [address], 05/21/2016 12:58:37 05/19/19 17 05/21/2016 iron + TIBC + kimberley tin, serum % saturation 15 %_(ca lc) 11-50 normal Not Available [facility] [address] [facility] [address], [place], [address], 05/21/2016 12:58:37 05/19/19 17 05/21/2016 iron + TIBC + kimberley tin, serum ferritin 18 NG/mL 10-232 normal Not Available [facility] [address] [facility] [address], [place], [address], 05/21/2016 12:58:37 05/19/19 17 05/21/2016 lipid panel , serum cholesterol, total 126 mg/dL 125-20 0 normal Not Available [facility] [address] [facility] [address], [place], [address], 05/21/2016 12:58:38 05/19/19 17 05/21/2016 lipid panel , serum HDL cholesterol 51 mg/dL > or = 46 normal Not Available [facility] [address] [facility] [address], [place], [address], 05/21/2016 12:58:38 05/19/19 17 05/21/2016 lipid panel , serum triglyceride s 56 mg/dL <150 normal Not Available [facility] [address] [facility] [address], [place], [address], 05/21/2016 12:58:38 05/19/1905/21/2016 lipid panel , serum direct LDL 73 mg/dL <130 normal Kirk able range <100 mg/dL for patie nts with CHD or diabe sergio and <70 mg/dL for diabe tic patie nts with known heart disea se. Not Available [facility] [address] [facility] [address], [place], [address], 05/21/2016 12:58:38 05/19/1905/21/2016 lipid panel , serum chol/HDLC ratio 2.5 (calc ) < or = 5.0 normal Not Available [facility] [address] [facility] [address] [place], [address], 05/21/2016 12:58:38 05/19/19 17 05/21/2016 lipid panel , serum non HDL cholesterol 75 mg/dL _(maximo c) normal Targe t for non-H DL troy stero l is 30 mg/dL highe r than LDL troy stero l targe t. Not Available [facility] [address] [facility] [address], [place], [address], 05/21/2016 12:58:38 05/19/19 17 05/21/2016 rf (rheu matoi d facto r), serum rheumatoid factor 5 IU/mL <14 normal Not Available [facility] [address] [facility] [address] [place], [address], 05/21/2016 12:58:39 05/19/19 17 05/21/2016 1,5-a nhydr ogluc itol, serum or plasm a glycomark (R) 22.4 mcg/m L 7.5-28 .4 normal Glyco Everett( R) refer ence range s apply to perso ns witho ut diabe sergio. In peopl e with diabe sergio under good to moder ate glyce edwina contr ol (hemo globi n A1c level s 8% or less) , Glyco Everett( R) level s less than 8 mcg/m L sugge st signi fican t glyce edwina varia bilit y, most likel y due to post meal blood gluco se level s incre asing above 180 mg/dL . Not Available [facility] [address] [facility] [address], [place], [address], 05/21/2016 12:58:39 05/19/19 17 05/18/2016 venip unctu re results Compl ete Not Available [facility] [address], [place], [address], 05/18/2016 10:30:06 06/20/19 17 06/20/2016 CBC WBC 7.7 x10^3 /uL 4.4-11 .0 Not Available [facility] [address] [place] [address] [address], [place], [address], 06/20/2016 09:58:20 06/20/1906/20/2016 CBC RBC 4.74 x10^6 /uL 4.50-5 .10 Not Available [facility] [address] [place], [place] [address]y [address], [place], [address], 06/20/2016 09:58:20 06/20/1906/20/2016 CBC HGB 13.5 g/dL 12.3-1 5.3 Not Available [facility] [address] [place], [place] [address]y [address] [place], [address], 06/20/2016 09:58:20 06/20/1906/20/2016 CBC HCT 41.8 % 35.9-4 4.6 Not Available [facility] [address] [place], [place] [address]y [address], [place], [address], 06/20/2016 09:58:20 06/20/1906/20/2016 CBC MCV 88.2 fL 80.0-9 6.0 Not Available [facility] [address] [place], [place] [address]y [address], [place], [address], 06/20/2016 09:58:20 06/20/1906/20/2016 CBC MCH 28.5 pg 27.5-3 3.2 Not Available [facility] [address] [place] [address] [address], [place], [address], 06/20/2016 09:58:20 06/20/1906/20/2016 CBC MCHC 32.4 g/dL 33.4-3 5.5 low Not Available [facility] [address], [place], [address], 06/20/2016 09:58:20 06/20/1906/20/2016 CBC RDW 13.6 % 11.6-1 5.0 Not Available [facility], [place], [address], 06/20/2016 09:58:20 06/20/1906/20/2016 CBC plt 271 x10^3 /uL 150-45 0 Not Available [facility], [place], [address], 06/20/2016 09:58:20 06/20/1906/20/2016 CBC MPV 9.6 fL 7.4-10 .4 Not Available [facility] [address] [place] [address] [address], [place], [address], 06/20/2016 09:58:20 06/20/1906/20/2016 CBC neut # 4.7 x10^3 /uL 1.5-7. 2 Not Available [facility], [place], [address], 06/20/2016 09:58:20 06/20/1906/20/2016 CBC lymph# 2.1 x10^3 /uL 0.7-4. 9 Not Available [facility], [place], [address], 06/20/2016 09:58:20 06/20/1906/20/2016 CBC mono# 0.5 x10^3 /uL 0.1-0. 9 Not Available [facility], [place], [address], 06/20/2016 09:58:20 06/20/1906/20/2016 CBC eos # 0.3 x10^3 /uL 0.0-0. 4 Not Available [facility] [address], [place], [address], 06/20/2016 09:58:20 06/20/19 17 06/20/2016 CBC baso # 0.1 x10^3 /uL 0.0-0. 2 Not Available [facility] [address], [place], [address], 06/20/2016 09:58:20 06/20/1906/20/2016 CBC neut % 61.0 % 42.2-7 5.2 Not Available [facility], [place], [address], 06/20/2016 09:58:20 06/20/1906/20/2016 CBC mono% 6.0 % 1.7-9. 3 Not Available [facility] [address], [place], [address], 06/20/2016 09:58:20 06/20/1906/20/2016 CBC eos% 4.5 % 1.0-6. 0 Not Available [facility], [place], [address], 06/20/2016 09:58:20 06/20/1906/20/2016 CBC baso% 0.7 % 0.0-4. 0 Not Available [facility] [address], [place], [address], 06/20/2016 09:58:20 06/20/1906/20/2016 CBC lymph % 27.8 % 20.5-5 1.1 Not Available [facility] [address], [place], [address], 06/20/2016 09:58:20 06/20/1906/20/2016 CMP, serum or plasm a glucose 141 mg/dL 65-99 high Fasti ng refer ence inter inocencio For someo ne witho ut known diabe sergio, a gluco se value >125 mg/dL indic ates that they may have diabe sergio and this shoul d be confi rmed with a follo w-up test. Not Available [facility] [address], [place], [address], 06/20/2016 12:34:33 06/20/1906/20/2016 CMP, serum or plasm a urea nitrogen (BUN) 19 mg/dL 7-25 normal Not Available [facility] [address], [place], [address], 06/20/2016 12:34:33 06/20/1906/20/2016 CMP, serum or plasm a creatinine 0.91 mg/dL 0.50-1 .05 normal For patie nts >49 years of age, the refer ence limit for Creat inine is appro ximat mark 13% highe r for peopl e ident ified as Afric an-Am hong n. Not Available [facility] [address], [place], [address], 06/20/2016 12:34:33 06/20/1906/20/2016 CMP, serum or plasm a eGFR non-afr. citizen of [place] 70 mL/mi n/1.7 3m2 > or = 60 normal Not Available [facility] [address], [place], [address], 06/20/2016 12:34:33 06/20/1906/20/2016 CMP, serum or plasm a eGFR 81 mL/mi n/1.7 3m2 > or = 60 normal Not Available [facility] [address], [place], [address], 06/20/2016 12:34:33 06/20/19 17 06/20/2016 CMP, serum or plasm a BUN/creatini ne ratio NOT APPLIC ABLE (calc ) 6-22 Not Available [facility] [address] [place] [address] [address] [place], [address], 06/20/2016 12:34:33 06/20/19 17 06/20/2016 CMP, serum or plasm a sodium 139 mmol/ L 135-14 6 normal Not Available [facility] [address] [place] [address] [address] [place], [address], 06/20/2016 12:34:33 06/20/1906/20/2016 CMP, serum or plasm a potassium 4.4 mmol/ L 3.5-5. 3 normal Not Available [facility] [address] [place] [address], [address], 06/20/2016 12:34:33 06/20/19 17 06/20/2016 CMP, serum or plasm a chloride 100 mmol/ L 98-110 normal Not Available [facility] [address] [place] [address] [address] [place], [address], 06/20/2016 12:34:33 06/20/19 17 06/20/2016 CMP, serum or plasm a carbon dioxide 33 mmol/ L 20-31 high Not Available [facility] [address] [place] [address] [address] [place], [address], 06/20/2016 12:34:33 06/20/1906/20/2016 CMP, serum or plasm a calcium 10.0 mg/dL 8.6-10 .4 normal Not Available [facility] [address] [place] [address] [address] [place], [address], 06/20/2016 12:34:33 06/20/19 17 06/20/2016 CMP, serum or plasm a protein, total 6.8 g/dL 6.1-8. 1 normal Not Available [facility] [address] [place] [address], [address], 06/20/2016 12:34:33 06/20/19 17 06/20/2016 CMP, serum or plasm a albumin 4.2 g/dL 3.6-5. 1 normal Not Available [facility] [address] [place] [address], [address], 06/20/2016 12:34:33 06/20/19 17 06/20/2016 CMP, serum or plasm a globulin 2.6 g/dL_ (calc ) 1.9-3. 7 normal Not Available [facility] [address] [place] [address], [address], 06/20/2016 12:34:33 06/20/19 17 06/20/2016 CMP, serum or plasm a albumin/glob ulin ratio 1.6 (calc ) 1.0-2. 5 normal Not Available [facility] [address] [place] [address], [address], 06/20/2016 12:34:33 06/20/1906/20/2016 CMP, serum or plasm a bilirubin, total 0.5 mg/dL 0.2-1. 2 normal Not Available [facility] [address] [place] [address], [address], 06/20/2016 12:34:33 06/20/1906/20/2016 CMP, serum or plasm a alkaline phosphatase 61 U/L 33-130 normal Not Available [facility] [address] [place] [address], [address], 06/20/2016 12:34:33 06/20/19 17 06/20/2016 CMP, serum or plasm a AST 25 U/L 10-35 normal Not Available [facility] [address] [place] [address], [place], [address], 06/20/2016 12:34:33 06/20/19 17 06/20/2016 CMP, serum or plasm a ALT 35 U/L 6-29 high Not Available [facility] [address] [place] [address] [address] [place], [address], 06/20/2016 12:34:33 06/20/19 17 06/20/2016 C-mick ctive prote in, quant itati ve, serum or plasm a C-reactive protein <0.10 mg/dL <0.80 normal Pleas e be advis ed that patie nts takin g Carbo xypen icill ins may exhib it false ly decre ased C-[place] ctive Prote in level s due to an roosevelt tical inter feren ce in this assay . Not Available [facility] [address] [place] [address], [address], 06/20/2016 12:34:33 06/20/19 17 06/20/2016 eryth rocyt e sedim entat ion rate by august almaraz metho d sed rate by modified lyndseyren 2 mm/h < or = 30 normal Not Available [facility] [address] [place] [address] [address] [place], [address], 06/20/2016 12:34:34 06/20/19 17 06/19/2016 venip unctu re results Compl ete Not Available [facility] [address] [place] [address] [address] [place], [address], 06/19/2016 12:21:17 04/10/19 17 04/10/2016 MAMMO , scree kevin, digit al, bilat eral No observ ation record ed. Formerly [facility] (Radiology) [address], [place], [address], 06/26/2016 14:00:06 04/10/19 17 04/10/2016 bone densi ty study No observ ation record ed. [address] [facility] (Rad[facility]) [address] [facility] [address], [place], [address], 06/26/2016 14:00:06 04/10/19 17 04/10/2016 bone densi ty study No observ ation record ed. [place] [id number] [facility] [address], [place], [address], 06/26/2016 14:00:06 04/18/19 17 04/10/2016 dual energ y x-ray absor ptiom etry No observ ation record ed. [address] [facility] ([facility]) [address] [facility] [address], [place], [address], 06/26/2016 14:00:06 06/28/19 17 elect rocar diogr am No observ ation record ed. flemoine Not Available 2016 18:03:08 Result Notes None recorded. Problems Name Problem SNOMED Code Status Onset Date Resolution Date Notes Provider Name and Address Organization Details Recorded Time Knee pain Completed 05/03/2014 Melodie willard [facility], [facility] 6 15:12:08 Multiple complicatio ns of type II diabetes mellitus Active Melodie willard [facility], [facility] 6 15:12:08 Sciatica [id number] Completed 05/03/2014 Melodie willard [facility], [facility] 6 15:12:08 Essential hypertensio n 58167177 Completed 06/27/2016 Rakesh Clark Jr, MD [address] [address], [place], [address] [place] [address] Physician Group, [facility] 7 14:59:25 Obesity 471406608 Active Melodie willard [facility], [facility] 6 15:12:08 Sinusitis 07652133 Completed 05/03/2014 Melodie willard [facility], [facility] 6 15:12:08 Tendinitis of finger 557424368 Completed 05/03/2014 [facility] 6 15:12:08 Cellulitis of lower limb 821571415 Completed 05/03/2014 [facility] 6 15:12:08 Herpes zoster 1058674 Completed 05/03/2014 Melodie Carey montse, [facility], [facility] 6 15:12:08 Generalized arthritis 134126050 [facility] 6 15:12:08 Psoriasis with arthropathy Active Rupesh hunter, [facility] [address], [place], [address] [place] [address] 6 15:41:47 Dermatophyt osis 06121457 Completed 05/03/2014 [facility] 6 15:12:08 Depressive disorder 33694167 Active [facility] 6 15:12:08 Hyperlipide murphy 77069956 [facility] 6 15:12:08 Bursitis of shoulder 628821113 Completed 06/27/2016 Rakesh Clark Jr, MD [address], [place], [address] [place] [address] 7 18:11:38 Disorder of nervous system due to type 2 diabetes mellitus 940738408 [facility] 6 15:12:08 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 56565399 Active Melodie Carey montse, [facility], [facility] 6 15:12:08 Menopausal symptom 43653055 [facility] 6 15:12:08 Recurrent major depressive episodes 804023518 Active Melodie [place], [facility], [facility] 6 15:12:08 Manic bipolar I disorder 52392760 Active Melodie willard, [facility], [facility] 6 15:12:08 Anemia caused by medication 748961757 Active Melodie willard, [facility], [facility] 6 15:12:08 Anemia 670983442 Active Melodie willard, [facility], [facility] 6 15:12:08 Chronic pain 40261097 Active Melodie willard, [facility], [facility] 6 15:12:08 Herniation of rectum into vagina 095546011 Active Melodie willard, [facility], [facility] 6 15:12:08 Otalgia 60327128 [facility] 6 15:12:08 Bipolar disorder 97101747 [facility] 6 15:12:08 Sciatica 87156898 [facility] 6 15:12:08 Peripheral neuropathic pain 396837629 [facility] 6 15:12:08 Iron deficiency anemia 27102079 Active 2016 Rakesh Clark Jr, MD [address], [place], [address], [facility], [facility] 7 17:04:22 Urinary incontinenc e 917677022 Active 2016 Rakesh Clark Jr, MD [address], [place], [address], [facility], [facility] 7 17:04:24 Hypertensiv e disorder 87601892 Active 2016 Rakesh Clark Jr, MD [address], [place], [address], [facility], [facility] 7 01:33:49 Gastro-esop hageal reflux disease with esophagitis 003844320 Active 2016 Rakesh Clark Jr, MD [address] [facility] [address], [place], [address], [facility] 17:08:23 Problem Notes Documentation Provider Name and Address Organization Details Recorded Time Home Supervisor Consult Note : [facility] ? [id number] [facility], [facility] [address]OCANDICEVIKYKELLY (id #[id number], : 1960) [facility] [address] [facility] [address] [place] [address] , Date: 04/02/2016RE: Kelly Drake, : 1960, PT ID #[id number] Islas MD, I would like to thank you for referring Kelly Drake to our practice for consultation and evaluation of previous patient of provider, imaging results (follow-up), lab results (follow up) Followup: Psoriasis with arthropathy patient reports she has pain in feet and low back., on 04/02/2016. I have enclosed a copy of the office evaluation for your records. Once again, thank you for allowing me to participate in the care of this patient. Sincerely, Electronically Signed by: JOSETTE LOWE Encounter Reason/Date previous patient of provider, imaging results (follow-up), lab results (follow up) Followup: Psoriasis with arthropathy patient reports she has pain in feet and low back. 04/02/2016 - 03:40PM [facility] History of Present IllnessRheumatology GeneralReported bypatient.Reason for visit:continued care of chronic complaintNotes:Patient returns for follow-up of her psoriatic arthritis. Medications are Enbrel 50 mg weekly. Patient reporting no breakouts of her psoriasis, she has several patches in her lower extremities that are healing. Denies any joint pain, swelling or stiffness. Morning stiffness less than 1 hour with mild fatigue and no sleeping difficulties. Patient is active and able to do her daily activities Tolerating her current medication well. Labs discussed during her visit todayReview of SystemsConstitutional:Constit utional: no fever. Eyes:Eyes: no pain in the eyes, red eyes, dry eyes, or vision change. ENMT:Ears: no ear pain. Nose: no frequent nosebleeds or nose/sinus problems. Mouth/Throat: no sore throat or mouth ulcers. Cardiovascular:Cardiovascular : no chest pain, rapid or irregular heartbeat (palpitations), or shortness of breath when walking. Respiratory:Respiratory: no cough, wheezing, or shortness of breath. Gastrointestinal:Gastrointest inal: no diarrhea or abdominal pain. Musculoskeletal:Musculoskelet al:arthralgias/joint pain(minimal) andAM stiffness(less than 60 minutes most days.), no muscle aches or weakness, no swelling in the extremities or joints, and no dactylitis. Integumentary:Skin: no rashes. Neurologic:Neurologic: no weakness, numbness, dizziness, headaches, or paresthesia. Psychiatric:Psych: no depression, anxiety, or sleep disturbances and restful sleep. Endocrine:Endocrine: no fatigue. Hematologic/Lymphatic:Hematol ogic/Lymphatic no bruising, excessive bleeding, or swollen glands.Physical ExamPatient is a 55-year-old female. Constitutional:General Appearance: healthy-appearing. Level of Distress: NAD. Ambulation: ambulating normally. Head:Head: normocephalic and temporal arteries non, tender, soft and pulse palpable. Eyes:Lids and Conjunctivae: non-injected. ENMT:Ears: no lesions on external ear and EACs clear. Nose: no nasal ulcer or discharge and no lesions on external nose. Lips, Teeth, and Gums: no mouth or lip ulcers and adequate saliva. Neck:Neck: supple. Lymph Nodes: no cervical LAD or supraclavicular LAD. Lungs:Respiratory effort: no dyspnea. Auscultation: no wheezing, rales/crackles, or rhonchi and breath sounds normal, good air movement, and CTA except as noted. Cardiovascular:Apical Impulse: not displaced. Heart Auscultation: RRR and no murmurs. Abdomen:Bowel Sounds: normal. Inspection and Palpation: soft and non-distended. Skin:Inspection and palpation: no rash. Hands:Hands no swelling, nodules, tenderness, or deformities and full range of motion. Wrists:Wrist no swelling, tenosynovitis, or tenderness and full range of motion. Elbows:Elbow no swelling or nodules and full range of motion and non tender to palpation. Shoulders:Shoulder negative Carmona and drop arm test; empty can sign negative left and right; and full range of motion, non tender to palpation, and no swelling. Feet:Foot no tophi, dactylitis, or heel tenderness;tenderness on squeeze of MTPandswelling(dorsal bilateral); and normal plantar arches. Ankles:Ankle no swelling, crepitus, or achilles swelling and full range of motion and achilles non tender to palpation. Knees:Knee no swelling, crepitus, warmth, tenderness, instability, or Otero's cyst and full range of motion. Hips:Hips full range of motion and trochanters non tender to on palpation.Procedure DocumentationNone recordedAssessment/Plan1. Psoriasis with arthropathy- controlled: no active psoriasis, joint tenderness or synovitis on exam today; Morning stiffness less than 1 hour with mild fatigue and no sleeping difficulties. Patient is active and able to do her daily activities Continue with Enbrel 50 mg subcutaneous weekly, Sed Rate is 11 and CRP was 0.8 . Return in 3 months with labsL40.50: Arthropathic psoriasis, unspecified Enbrel SureClick 50 mg/mL (0.98 mL) subcutaneous pen injector -Inject 50 mg every week by subcutaneous route for 30 days. ? Qty: 4 0.98 mL syringe(s) ? Refills: 1 ? Pharmacy: [facility] ([facility]-2016) CBC W/ AUTODIFF, COMPLETE BLOOD COUNT -?To be performed on or around 06/25/2016 CMP, COMPREHENSIVE METABOLIC PANEL -?To be performed on or around 06/25/2016 SED RATE, WESTERGREN -?To be performed on or around 06/25/2016 CRP, C-REACTIVE PROTEIN -?To be performed on or around 06/25/2016 2. Long-term drug therapy- Patient is tolerating current medications well, not reporting any adverse effects from medications. 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 Return to Office to see Rakesh Clark Jr, MD for BLOCK at [address] on or around 05/26/2016 Rakesh Clark Jr, MD for WELCOME TO MEDICARE [address] on 05/30/2016 at 10:15 AM JOSETTE Lowe for ESTABLISHED OV 20 at [facility] on 07/10/2016 at 02:00 PM JOSETTE Lowe [address], [place], [address], [facility], [facility] 06/26/2016 14:00:07 Procedures Surgical History Date Name Laterality Status Provider Name and Address Organization Details Recorded Time 06/28/19 17 Quality Pain Screening No Pain completed Rakesh Clark Jr, MD [address], [place], [address], [facility], [facility] 06/27/2016 14:51:17 06/28/19 17 Quality Functional Assessment completed Rakesh Clark Jr, MD [address], [place], [address], [facility], [facility] 06/27/2016 14:51:17 06/28/19 17 Quality Medication Reviewed and Updated completed Rakesh Clark Jr, MD [address], [place], [address], [facility], [facility] 06/27/2016 14:51:17 06/28/19 17 Quality (DM or HTN) BP Diastolic < 80 completed Rakesh Clark Jr, MD [address], [place], [address], [facility] [place] [facility], [facility] 06/27/2016 14:51:17 06/28/19 17 Medicare AWV Questionnaire completed Rakesh Clark Jr, MD [address], [place], [address], [facility], [facility] 06/27/2016 14:51:16 06/28/19 17 Quality Tobacco Non- User completed Rakesh Clark Jr, MD [address], [place], [address], [facility] Physician [facility], [facility] 06/27/2016 14:51:17 06/28/19 17 Quality (DM or HTN ) BP Systolic < 130 completed MD Wale Cobb Jr[address], [place], [address], [facility] Phys[facility], [facility] 06/27/2016 14:51:17 06/28/19 17 Quality Fall Risk Assessment Low Risk completed Rakesh Clark Jr, MD [address], [place], [address], [facility], [facility] 06/27/2016 14:51:17 06/28/19 17 Quality BMI with follow up completed Rakesh Clark Jr, MD [address], [place], [address], [facility], [facility] 06/27/2016 14:51:17 06/28/19 17 Quality Advanced Care Planning completed Rakesh Clark Jr, MD [address], [place], [address], [facility]ician [facility], [facility] 06/27/2016 14:51:17 06/28/19 17 Quality Incontinence Screening completed Rakesh Clark Jr, MD [address], [place], [address], [facility] Physician [facility], [facility] 06/27/2016 14:51:17 06/28/19 17 Diabetic Foot Exam completed Rakesh Clark Jr, MD [address], [place], [address], [facility], [facility] 06/27/2016 18:35:46 06/27/19 17 Quality Pain Screening No Pain cancelled Jovaniprimo Santy [facility], [facility] 06/26/2016 12:03:03 06/27/19 17 Quality Functional Assessment cancelled Remediosnorberto Foxanayeli [facility], [facility] 06/26/2016 11:57:35 06/27/19 17 Quality Medication Reviewed and Updated cancelled Remediosnorberto Mendez [facility], [facility] 06/26/2016 11:57:34 06/27/19 17 Quality (DM or HTN) BP Diastolic < 80 cancelled Remedios Mendez [facility], [facility] 06/26/2016 11:57:35 06/27/19 17 Medicare AWV Questionnaire cancelled [facility], [facility] 06/26/2016 12:01:38 06/27/19 17 Quality Tobacco Non- User cancelled Remedioseber Mendez [facility], [facility] 06/26/2016 11:57:34 06/27/19 17 Quality (DM or HTN ) BP Systolic < 130 cancelled Remedios Mendez [facility], [facility] 06/26/2016 11:57:35 06/27/19 17 Quality Fall Risk Assessment Low Risk cancelled Remediosnorberto Mendez [facility], [facility] 06/26/2016 11:57:35 06/27/19 17 Quality BMI with follow up cancelled Remediosnorberto Mendez [facility], [facility] 06/26/2016 11:57:35 06/27/19 17 Quality Advanced Care Planning cancelled Remediosnorberto Mendze [facility], [facility] 06/26/2016 11:57:35 06/27/19 17 Quality Incontinence Screening cancelled Remediosnorberto Mendez [facility], [facility] 06/26/2016 11:57:35 05/13/19 17 Vrt fracture assmt via dxa completed Lucretia Madera [facility], [facility] 06/26/2016 12:02:16 05/13/19 17 Bone mineral single photon completed Remedios Mendez [facility], [facility] 06/27/2016 16:04:30 05/13/19 17 Mammogram Screening completed Remedios Mendez [facility], [facility] 06/27/2016 16:04:51 05/13/19 17 Other completed Remedios Mendez [facility], [facility] 06/27/2016 16:05:33 12/03/19 15 Diabetic Foot Exam completed Rakesh Clark Jr, MD [address], [place], [address], [facility] 12/05/2014 20:40:00 05/07/19 14 TCM Initial completed Lorena Bazzi [facility] 05/06/2013 10:27:34 04/02/19 14 Aspiration Major Joint/Bursa completed Rakesh Clark Jr, MD [address], [place], [address], [facility], [facility] 04/05/2013 16:22:28 03/10/19 14 Aspiration Major Joint/Bursa completed Rakesh Clark Jr, MD [address], [place], [address], [facility], [facility] 03/10/2013 17:45:44 03/03/19 14 Aspiration Major Joint/Bursa completed Rakesh Clark Jr, MD [address], [place], [address], [facility], [facility] 03/03/2013 17:51:17 02/16/19 14 Aspiration Major Joint/Bursa completed Rakesh Clark Jr, MD [address], [place], [address], [facility], [facility] 02/16/2013 17:36:32 02/11/19 11 Colonoscopy completed Lucretia Madera [facility], [facility] 06/26/2016 12:02:02 02/11/19 07 Colonoscopy completed Gill Marie [facility], [facility] 02/16/2013 14:55:02 02/11/19 03 Hernia repair completed Gill Marie [facility], [facility] 02/16/2013 15:22:58 02/11/18 89 Cholecystectomy completed Gill Marie [facility], [facility] 02/16/2013 15:22:58 02/11/18 89 [facility], [facility] 02/16/2013 15:22:58 [facility], [facility] 02/16/2013 15:23:18 COLONOSCOPY (SURG) completed Faraz Overton [facility], [facility] 07/23/2013 19:11:11 Imaging Results Imaging Date Name Status LastModified by Organization Details LastModified Time 04/10/2016 MAMMO, screening, digital, bilateral completed [address] [facility] [address] [facility] ([facility]) [address] [facility] [address], [place], [address], 06/26/2016 14:00:06 04/10/2016 bone density study completed [address] [facility] [address] [facility] (Rad[facility]) [address] [facility] [address], [place], [address], 06/26/2016 14:00:06 04/10/2016 bone density study [place] [address] [address], [place], [address], 06/26/2016 14:00:06 04/10/2016 dual energy x-ray absorptiometry completed [address] [facility] ([facility]) [address] [facility] [address], [place], [address], 06/26/2016 14:00:06 06/27/2016 electrocardiogram completed Informa tion not available 06/27/2016 18:03:08 Procedure Notes None recorded. Medical Equipment None Reported. Allergies Allergen ID Allergen Name Allergen Category Reaction Reaction Severity Criticality Documentation Date Start Date Code Code System Note Provider Name and Address Organization Details Recorded Time 073270 Lorabid medicatio n anaphylax is severe Not available 02/16/2013 44171 4 RxNorm aller gy previ ously marke d as life -thre ateni ng Not Available [facility] 4 05:46:19 461761 chlorthal idone medicatio n anaphylax is severe Not available 02/16/2013 2409 RxNorm aller gy previ ously marke d as life -thre ateni ng Not Available [facility] 4 05:46:19 195454 Bactrim medicatio n anaphylax is severe Not available 02/16/2013 40102 9 RxNorm Gill Marie [facility], [facility] 4 15:02:18 798164 doxycycli ne Not available anaphylax is moderate Not available 02/16/2013 3640 RxNorm Gill Marie [facility], [facility] 4 15:02:18 948825 Norvasc medicatio n anaphylax is moderate Not available 02/16/2013 39226 RxNorm Gill Marie [facility] 4 15:02:18 655428 erythromy sai medicatio n anaphylax is moderate Not available 02/16/2013 4053 RxNorm Gill Marie [facility] 4 15:02:18 655002 prednison e medicatio n other Not available Not available 12/02/2014 8640 RxNorm Monica Cheatham [facility] 5 17:57:49 Medications Name Sig Start Date Stop Date Status Note LastModified by Organization Details LastModified Time Prescript ion - Prior Authoriza tion Request active Not Available Not Available Not Available compounde d medicatio n APPLY 1-2 GRAMS 3-4 TIMES A DAY NEEDED FOR PAIN 02/26 completed Not Available Not Available Not Available atorvasta tin 40 mg tablet Take 1 tablet(s ) every day by oral route for 90 days. active Not Available Not Available No t Available metformin 500 mg tablet Take 2 tablets twice a day by oral route for 90 days. 2018 active Not Available Not Available Not Avai lable prednison e 10 mg tablet Take 1 tablet twice a day by oral route with meals for 3 days. active Not Available Not Available No t Available gabapenti n 600 mg tablet Take 1 tablet(s ) 3 times a day by oral route for 90 days. active Not Available Not Available No t Available clindamyc in HCl 300 mg capsule Take by oral route for 7 days. active Not Available Not Available No t Available azithromy sai 250 mg tablet TAKE 2 TABLETS (500 MG) BY ORAL ROUTE ONCE DAILY FOR 1 DAY THEN 1 TABLET (250 MG) BY ORAL ROUTE ONCE DAILY FOR 4 DAYS active Not Available Not Available No t Available tizanidin e 4 mg tablet active Not Available Not Available Not Available hydrocodo ne 5 mg-acetam inophen 325 mg tablet Take 1 tablet 3 times a day by oral route as needed for 10 days. 06/20 completed Not Available Not Available Not Available prednison e 5 mg tablet Take 10 mg every day by oral route in the morning for 10 days. active Not Available Not Available No t Available clonazepa m 1 mg tablet Take 1 tablet every day by oral route for 90 days. active Not Available Not Available No t Available acyclovir 400 mg tablet active Not Available Not Available Not Available Kenalog 40 mg/mL suspensio n for injection Take 1 mL by injectio n route. 2013 active 40mg= 4 units Not Available Not Available Not Available Percocet 10 mg-325 mg tablet Take 1 tablet every 6 hours by oral route for 10 days. 05/16 completed Not Available Not Available Not Available methotrex ate sodium 2.5 mg tablet take 4 tabs every saturday active Not Available Not Available No t Available cephalexi n 500 mg capsule Take 1 capsule twice a day by oral route with meals for 6 days. active Not Available Not Available No t Available paroxetin e 20 mg tablet Take 1 tablet twice a day by oral route for 90 days. 2015 active Not Available Not Available Not Avai lable methylpre dnisolone 8 mg tablet Take 1 tablet every other day by oral route for 30 days. 2013 active as directed Not Available Not Available Not Available simvastat in 20 mg tablet Take 1 tablet every day by oral route. active Not Available Not Available No t Available ferrous sulfate 325 mg (65 mg iron) tablet active Not Available Not Available Not Available metronida zole 0.75 % topical cream active Not Available Not Available Not Available indometha sai 50 mg capsule TK ONE C PO BID FOR INFLAMMA TION active Not Available Not Available No t Available omeprazol e 20 mg capsule,d elayed release active Not Available Not Available Not Available folic acid 1 mg tablet Take 1 tablet every day by oral route in the morning for 30 days. active Not Available Not Available No t Available hydrochlo rothiazid e 25 mg tablet Take 1 tablet(s ) every day by oral route. active Not Available Not Available No t Available clobetaso l 0.05 % topical ointment Apply 1 applicat ion every day by topical route for 90 days. 2016 active Not Available Not Available Not Avai lable methylpre dnisolone 4 mg tablets in a dose pack TK UTD active Not Available Not Available Not Available albuterol sulfate HFA 90 mcg/actua tion aerosol inhaler Inhale 2 puffs 3 times a day by inhalati on route as needed for 15 days. 2015 active Not Available Not Available Not Avai lable ketorolac 60 mg/2 mL intramusc ular solution Inject 2 mL by intramus cular route. 2013 active 2ml given IM Not Available Not Available Not Available ketoconaz ole 2 % topical cream APPLY TO THE AFFECTED AREA(S) BY TOPICAL ROUTE TWICE A DAY active Not Available Not Available No t Available clobetaso l 0.05 % scalp solution APPLY TOPICALL Y ONCE DAILY 2017 active denied. patient not seen since 06/27. looks like moved and no longer our patient Not Available Not Available Not Available losartan 100 mg tablet take one tablet everyday active Not Available Not Available No t Available amoxicill in 500 mg-potass ium clavulana te 125 mg tablet Take 1 tablet twice a day by oral route for 10 days. 01/29 completed Not Available Not Available Not Available buspirone 15 mg tablet active Not Available Not Available Not Available Hyalgan 10 mg/mL intra-art icular syringe Inject 2 mL by intra-ar ticular route. 2013 active Not Available Not Available Not Avai lable duloxetin e 30 mg capsule,d elayed release active Not Available Not Available Not Available folic acid active Not Available Not Available Not Available Diovan 180 mg q day active Not Available Not Available No t Available gabapenti n 600 mg 2 tablets bid active Not Available Not Available No t Available Humira Pen 40 mg/0.8 mL subcutane ous kit One injectio n every 2 weeks active Not Available Not Available No t Available Enbrel SureClick 50 mg/mL (1 mL) subcutane ous pen injector Inject 50 mg every week by subcutan eous route for 30 days. active Not Available Not Available No t Available Pulmicort Flexhaler 180 mcg/actua tion breath activated Inhale 2 puffs twice a day by inhalati on route as needed. active Not Available Not Available No t Available Appformin 500 mg 1 tab bid 04/02 completed Not Available Not Available Not Available Onglyza 5 mg tablet Take 1 tablet(s ) every day by oral route for 90 days. active Not Available Not Available No t Available Suprep Bowel Prep Kit 17.5 gram-3.13 gram-1.6 gram oral solution take as instruct ed by the physicia n's office active Not Available Not Available No t Available Aleve 220 mg capsule 2 tablets bid active Not Available Not Available No t Available Bydureon 2 mg subcutane ous extended release suspensio n Inject 2 mg every week by subcutan eous route for 12 days. 04/02 completed Not Available Not Available Not Available Nesina 25 mg tablet Take 1 tablet every day by oral route for 90 days. 06/27 completed Not Available Not Available Not Available Fluarix Quad [id number] (PF) 60 mcg (15 mcg x 4)/0.5 mL IM syringe inject 0.5 millilit er intramus cularly active Not Available Not Available No t Available Vitals Date Recorded Body height Body weight Body mass index (BMI) Provider Name and Address Organization Details Last Updated DateTime 11/28/2015 162.56 cm 439213.4927 4 g 39.8 kg/m2 Melodie Carey [facility], [facility] 11/28/2015 15:12:08 Date Recorded Heart rate Systolic blood pressure Diastolic blood pressure Provider Name and Address Organization Details Last Updated DateTime 11/28/2015 84 /min 122 mm[Hg] 78 mm[Hg] Melodie Carey [facility], [facility] 11/28/2015 15:15:04 Date Recorded Body height Provider Name an d Address Organization Details Last Updated DateTime 02/27/2016 162.56 cm Lucretia Madera [facility], [facility] 02/27/2016 11:04:58 Date Recorded Body weight Body mass index (BMI) Provider Name and Address Organization Details Last Updated DateTime 02/27/2016 142108.06 g 39.1 kg/m2 Lucretia [facility], [facility] 02/27/2016 17:25:00 Date Recorded Body temperature Provider Name a nd Address Organization Details Last Updated DateTime 02/27/2016 98.6 [degF] [facility] 02/27/2016 17:25:08 Date Recorded Heart rate Provider Name an d Address Organization Details Last Updated DateTime 02/27/2016 112 /min [facility] 02/27/2016 17:25:11 Date Recorded Oxygen saturation Oxygen saturation in Arterial blood by Pulse oximetry Provider Name and Address Organization Details Last Updated DateTime 02/27/2016 96 % 96 % [facility], [facility] 02/27/2016 17:25:14 Date Recorded Body height Provider Name an d Address Organization Details Last Updated DateTime 04/02/2016 162.56 cm Melodie Carey [facility] Phys[facility], [facility] 04/02/2016 15:52:26 Date Recorded Body weight Provider Name an d Address Organization Details Last Updated DateTime 04/02/2016 654115.06 g Melodie Carey [facility], [facility] 04/02/2016 15:53:28 Date Recorded Body mass index (BMI) Provider Name and Address Organization Details Last Updated DateTime 04/02/2016 39.1 kg/m2 Melodie Carey [facility], [facility] 04/02/2016 15:53:29 Date Recorded Heart rate Provider Name an d Address Organization Details Last Updated DateTime 04/02/2016 88 /min Melodie Carey [facility], [facility] 04/02/2016 15:57:25 Date Recorded Oxygen saturation Oxygen saturation in Arterial blood by Pulse oximetry Provider Name and Address Organization Details Last Updated DateTime 04/02/2016 98 % 98 % Melodie Carey [facility], [facility] 04/02/2016 15:57:36 Date Recorded Body height Provider Name an d Address Organization Details Last Updated DateTime 06/26/2016 162.56 cm Elis Armendariz [facility], [facility] 06/26/2016 11:51:02 Date Recorded Respiratory rate Provider Name a nd Address Organization Details Last Updated DateTime 06/26/2016 18 /min Remedios [facility], [facility] 06/26/2016 11:52:36 Date Recorded Body height Provider Name an d Address Organization Details Last Updated DateTime 06/26/2016 162.56 cm Melodieshahbaz Carey [facility], [facility] 06/26/2016 13:44:38 Date Recorded Body weight Body mass index (BMI) Provider Name and Address Organization Details Last Updated DateTime 06/26/2016 497609.13 g 42.1 kg/m2 Melodieshahbaz Carey [facility], [facility] 06/26/2016 13:44:50 Date Recorded Oxygen saturation Oxygen saturation in Arterial blood by Pulse oximetry Provider Name and Address Organization Details Last Updated DateTime 06/26/2016 100 % 100 % Melodie Carey [facility], [facility] 06/26/2016 13:47:18 Date Recorded Heart rate Provider Name an d Address Organization Details Last Updated DateTime 06/26/2016 91 /min Melodie Carey [facility], [facility] 06/26/2016 13:47:23 Date Recorded Body height Provider Name an d Address Organization Details Last Updated DateTime 06/27/2016 162.56 cm Remedios Ruddyanayeli [facility], [facility] [facility] 06/27/2016 16:03:17 Date Recorded Respiratory rate Provider Name a nd Address Organization Details Last Updated DateTime 06/27/2016 18 /min [facility]edios [facility]eli [facility], [facility] 06/27/2016 16:03:32 Date Recorded Body weight Provider Name an d Address Organization Details Last Updated DateTime 06/27/2016 437771.73 g Remedios Hilanayeli [facility], [facility] 06/27/2016 16:15:35 Date Recorded Body mass index (BMI) Provider Name and Address Organization Details Last Updated DateTime 06/27/2016 41.1 kg/m2 Remedios Ruddyanayeli [facility], [facility] 06/27/2016 16:15:36 Date Recorded Body temperature Provider Name a nd Address Organization Details Last Updated DateTime 06/27/2016 99.2 [degF] Remedios Mendez [facility], [facility] 06/27/2016 16:15:47 Date Recorded Heart rate Provider Name an d Address Organization Details Last Updated DateTime 06/27/2016 100 /min Remedios Mendez [facility], [facility] 06/27/2016 16:16:01 Date Recorded Oxygen saturation Oxygen saturation in Arterial blood by Pulse oximetry Provider Name and Address Organization Details Last Updated DateTime 06/27/2016 98 % 98 % Remedios Mendez [facility], [facility] 06/27/2016 16:16:10 Date Recorded Systolic blood pressure Diastolic blood pressure Provider Name and Address Organization Details Last Updated DateTime 02/27/2016 108 mm[Hg] 78 mm[Hg] Lucretia Madera [facility], [facility] 02/27/2016 17:25:04 Date Recorded Systolic blood pressure Diastolic blood pressure Provider Name and Address Organization Details Last Updated DateTime 04/02/2016 144 mm[Hg] 96 mm[Hg] Melodie Carey [facility], [facility] 04/02/2016 15:57:00 Date Recorded Systolic blood pressure Diastolic blood pressure Provider Name and Address Organization Details Last Updated DateTime 06/26/2016 156 mm[Hg] 98 mm[Hg] Melodie Carey [facility], [facility] 06/26/2016 13:46:40 Date Recorded Systolic blood pressure Diastolic blood pressure Provider Name and Address Organization Details Last Updated DateTime 06/27/2016 148 mm[Hg] 99 mm[Hg] Remedios Mendez [facility], [facility] 06/27/2016 16:15:42 Social History Question Answer Notes LastModified by Organizat ion Details LastModified Time Tobacco Smoking Status Former Smoker Gill Marie montse [facility], [facility] 02/16/2013 15:16:13 Do You Have An Advance Directive? No PT WISHES TO BE RESUSCITATED BUT DOESN'T WANT HER LIFE PROLONGED IF THERE IS NO REASONABLE CHANCE OF FUNCTIONAL RECOVERY Information not available 07/15/2013 How Much Tobacco Do You Chew? None [email or web address] Information not available 04/02/2016 Which Illicit Or Recreational Drugs Have You Used? None Information not available 02/16/2013 Dexa 04/10/2016 Information not available 06/27/2016 EKG 06/27/2016 Information not available 06/27/2016 Cxr 10/19/2015 Information not available 06/27/2016 Mammogram 04/10/2016 Information not available 06/27/2016 Colonoscopy 02/11/2006 Information not available 06/27/2016 Update Mammo/Colonosco py In Surgical Hx Yes Information not available 06/27/2016 Alcohol Use No Information not available 02/16/2013 Sunscreen Used Routinely No Information not available 07/15/2013 Have You Seen A Dentist In The Last 12 Months? Yes Information not available 07/15/2013 Year Quit Tobacco Use 1982 Information not available 02/16/2013 If You Ride A Motorcycle Or Bicycle, Do You Wear A Helmet? Does Not Ride Information not available 07/15/2013 Marital Status But Still Lives With HER Information not available 11/07/2015 Seat Belts Used Routinely Yes Information not available 07/15/2013 Are You Sexually Active? No Information not available 07/15/2013 How Much Tobacco Do You Smoke? 2 PPD Information not available 02/16/2013 How Many Years Have You Smoked Tobacco? 13 Information not available 02/16/2013 Sex: Unknown Functional Status Question Answer Note LastModified by Organization D etails LastModified Time What is your exercise level? None Information not available 02/16/2013 Mental Status None recorded. Family History Relationship Description Onset Age of this Age Resolved Age Notes LastModified by Organization Details LastModified Time Mother Cerebrovascu lar accident 83 Not available 11/28/2015 15:35:45 Mother Heart disease Not available 15:35:45 Mother Hypertensive disorder Not available 15:35:45 Mother Thyroiditis Not av ailable 11/28/2015 15:35:45 Father Family history of Father alive with problem Not available 11/28/2015 15:35:45 Father Hypertensive disorder Not available 15:35:45 Father Arthritis Not avai lable 11/28/2015 15:35:45 Sister Family history of Sister alive and well 61 Not available 15:35:45 Sister Polyp of colon ld Not available 15:35:45 Sister Depressive disorder ld Not available 15:35:45 Sister Osteoporosis Not a vailable 11/28/2015 15:35:45 Son Juvenile rheumatoid arthritis Not available 15:35:45 Notes:grandfather Brain Canc er// Medical History Condition Response Cancer (location) N Gout N Other Y Thyroid Disease N Kidney Stones N Measles/Mumps N Emphysema/COPD N Sexually Transmitted Disease N Depression Y Prostate Problems N Vascular Disease N Rash/Skin Condition Y Amputation (location) N Parkinson's N Paralysis N Headaches/Migraines N Cardiac Pacemaker/defibrillator N Nerve Damage / Neuropathy Y Arthritis Y Sleep disorder/Insomnia N Heart disease / Heart Attack N Crohn's Disease N HIV/AIDS N Stroke/TIA N Colon Problems Y High Cholesterol Y Serious Injuries N Kidney Disease N Memory Loss/Alzheimer's N Gallbladder disease N High blood pressure Y Congestive heart failure N Falls N Alcohol Overuse N Blood Thinner Treatment N Hormone Replacement N Nervous Breakdown N Campos's Esophagus N Anemia N Urinary Problems N Colon Polyps Y Gastritis N Hospitalizations (other than operations) N Back pain N Diabetes Y Rheumatic Fever N Bleeding Disorder N Cardiac Arrhythmias /irregular heart rat e N Osteopenia/Osteoporosis N Anxiety/Stress Y Asthma Y Vision Problems N Erectile / Sexual Dysfunction N Ostomies (location) N Seizures N Jaundice N Sleep Apnea N Hepatitis N Past Reacton to Contrast Media N Cirrhosis N GERD/Ulcer N Chicken Pox N Allergies (other than meds) N Gynecological History Statement/Question Response If Post Menopausal, Age at Menopause 50 Age at Menarche 10 3 Age at First Child 24 Para 3 Obstetrics History GPAL:G 3 P 0 0 0 3 Type Value Induced 0 Spontaneous 0 Living 3 Total 3 Immunizations Vaccine Type Date Status Note Provider Nam e and Address Organization Details Recorded Time pneumococcal, unspecified formulation 02/11/2009 completed Rakesh Clark Jr, MD [address] [facility] [address], [place], [address], [facility], [facility] 05/18/2014 19:11:52 influenza, unspecified formulation 02/12/2012 completed Rakesh Clark Jr, MD [address], [place], [address], [facility]ician [facility], [facility] 05/18/2014 19:11:52 tetanus toxoid, unspecified formulation 02/11/2010 completed Rakesh Clark Jr, MD [address], [place], [address], [facility] Physician [facility], [facility] 05/18/2014 19:11:52 influenza, unspecified formulation 02/12/2012 completed MD Wale Cobb Jr[address], [place], [address], [facility] Physician [facility], [facility] 12/16/2013 09:20:00 pneumococcal, unspecified formulation 02/11/2009 completed Rakesh Clark Jr, MD [address], [place], [address], [facility] Physician [facility], [facility] 12/16/2013 09:20:00 tetanus toxoid, unspecified formulation 02/11/2010 completed Rakesh Clark Jr, MD [address], [place], [address], [facility] Physician [facility], [facility] 12/16/2013 09:20:00 Past Encounters Encounter ID Performer Location Encounter Start Date Encounter Closed Date Diagnosis/Indication Diagnosis SNOMED-CT Code Diagnosis ICD10 Code Diagnosis Note [id number] Hortencia Lopez [address] [address] 02/16/2013 15:09:24 02/16/2013 17:41:02 Knee pain [id number] Tenosynovi tis of the knee. Kenalog injection tolerated well. 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 Check A1c. She is unwilling to check sugars so will have to go by A1C and modify treatment accordingl y. Anticipate will have to add something such as a GLP1 or DPP4 inhibitor. GLP1 would probably be most beneficial because of her obesity Sciatica [id number] Exacer jennifer d by knee pain. Treat knee and see how her back improves. Weight loss would also help Essential hypertension 19708327 Stable. Continue meds. 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 Discussed the diagnosis as well as the risks and benefits of therapy/ev aluation. Reviewed the goals of patient's hemoglobin A1 C based on risks and benefits and possibilit ies of hypoglycem ia. Discussed current recommenda tions. Reviewed at length with the patient options available to get patient's blood sugars under control and minimize/c ontrol further complicati ons. Patient understand s the risks and benefits of declining or accepting treatment. Please see patient instructio ns for any additional informatio n concerning medical plan of care. Essential hypertension 81685461 Blood pressure under good control. Continue medication s. Encourage patient to continue to monitor blood pressure regularly. Knee pain 23205329 Stabl e. Controlled . Continue current therapy/me dical plan of care. Sciatica 30459835 Stable . Controlled . Continue current therapy/me dical plan of care. Obesity 519613313 Discus sed the diagnosis as well as the risks and benefits of therapy/ev aluation. Patient understand s the risks and benefits of declining or accepting treatment. Please see patient discharge instructio ns for any additional informatio n concerning medical plan of care. Make it some benefit from the Bydureon with her weight loss. [id number] Rakesh Clark Jr, MD [address] [address] 03/03/2013 16:38:47 03/03/2013 17:48:26 Knee pain 73137215 Tolerated injection well. Improvemen t with initial Cortisone injection continue with Hyalgan. Discussed the diagnosis as well as the risks and benefits of therapy/ev aluation. Patient understand s the risks and benefits of declining or accepting treatment. Please see patient discharge instructio ns for any additional informatio n concerning medical plan of care. [id number] Rakesh Clark Jr, MD [address] [address] 03/10/2013 16:58:03/11/2013 11:56:47 Knee pain 28823656 Stable. Controlled . Continue current therapy/me dical plan of care.Discu ssed the diagnosis as well as the risks and benefits of therapy/ev aluation. Patient understand s the risks and benefits of declining or accepting treatment. Please see patient discharge instructio ns for any additional informatio n concerning medical plan of care. Essential hypertension 20700661 Blood pressure under good control. Continue medication s. Encourage patient to continue to monitor blood pressure regularly. Sinusitis 46069162 [facility] medical problem uncontroll ed. Discussed the diagnosis as well as different treatment option, and the risks and benefits of therapy/ev aluation. Reviewed goals of treatment with patient. Patient understand s the risks and benefits of declining or accepting treatment. Please see patient discharge instructio ns for any additional informatio n concerning medical plan of care. Sinus headache 6936143 D iscussed the diagnosis as well as the risks and benefits of therapy/ev aluation. Patient understand s the risks and benefits of declining or accepting treatment. Please see patient discharge instructio ns for any additional informatio n concerning medical plan of care. [id number] Rakesh Clark Jr, MD [address] [address] 03/17/2013 17:00:19 03/17/2013 18:36:28 Knee pain 81721426 Swelling appears to be from precius Hyalgan injection. Postpone 1 week. No evidence of infection. Feel if I gave her this last dose today it would result in significan t joint infusion [id number] Hortencia Lopez [place] [address] 04/02/2013 17:30:36 04/02/2013 19:11:46 Knee pain 00829440 Doing well tolerating injections . Improved Tendinitis of finger 621373322 Medrol dose pack. Rec she use a wrist brace bilaterall y. 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 Leg wrapped with pressure bandage. capillary refill good. tolerated. Continue antibiotic s. 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 Instructed her that she has to wear diabetic shoes. Herpes zoster 1408801 St able. [id number] Rakesh Clark Jr, MD [address] [place] [address] 05/08/2013 08:28:37 05/08/2013 10:09:56 Cellulitis of lower limb 067911437 Improved continue antibiotic s andkeep leg elevated [id number] Daquan Doss MD [facility] [address] [place] [address] 05/14/2013 15:11:57 05/14/2013 16:17:29 Hip pain 13291758 [id number] Rakesh Clark Jr, MD [address] [place] [address] 06/10/2013 11:48:39 06/10/2013 14:43:56 Psoriasis 1583909 Discussed the diagnosis as well as the risks and benefits of therapy/ev aluation. Patient understand s the risks and benefits of declining or accepting treatment. Please see patient discharge instructio ns for any additional informatio n concerning medical plan of care. Generalized arthritis 283866829 Discussed the diagnosis as well as the risks and benefits of therapy/ev aluation. Patient understand s the risks and benefits of declining or accepting treatment. Please see patient discharge instructio ns for any additional informatio n concerning medical plan of care. Psoriasis with arthropathy 25152356 Current medical problem uncontroll ed. Discussed the diagnosis as well as different treatment option, and the risks and benefits of therapy/ev aluation. Reviewed goals of treatment with patient. Patient understand s the risks and benefits of declining or accepting treatment. Please see patient discharge instructio ns for any additional informatio n concerning medical plan of care. Patient has a lot of problems with steroids in that they cause her to have severe problems with anxiety and sleeplessn ess. Will give some Clonazepam to help with this. [id number] Palma Hunter [facility] [address] [facility] [address],[facility] [address] [place] [address] 06/11/2013 13:30:44 06/11/2013 15:34:44 Screening for malignant neoplasm of colon 069503211 has h/o polyps. Doing well. No severe heart nor lung disease. Not on blood thinners. Will proceed with colonoscop y. [id number] Rakesh Clark Jr, MD [address] [place] [address] [place] [address] 07/15/2013 14:12:02 07/15/2013 16:45:49 Adult health examination [id number] Psoriasis with arthropathy 12677554 Will start her on steroids. Will also go ahead and give her a Kenalog shot at this time. Will add Toradol for her joint discomfort . 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 She has needs to see the rheumatolo gist.Juwan colby she has the anxiety with taking the steroids will add Clonazepam . 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 Encourage the patient to check her blood sugars Essential hypertension 49475971 We will change her from Diovan to Losartan for insurance coverage. 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 Discussed the diagnosis as well as the risks and benefits of therapy/ev aluation. Reviewed the goals of patient's hemoglobin A1 C based on risks and benefits and possibilit ies of hypoglycem ia. Discussed current recommenda tions. Reviewed at length with the patient options available to get patient's blood sugars under control and minimize/c ontrol further complicati ons. Patient understand s the risks and benefits of declining or accepting treatment. Please see patient instructio ns for any additional informatio n concerning medical plan of care. Psoriasis with arthropathy 24898418 Discussed the diagnosis as well as the risks and benefits of therapy/ev aluation. Patient understand s the risks and benefits of declining or accepting treatment. Please see patient discharge instructio ns for any additional informatio n concerning medical plan of care. Essential hypertension 28221299 Blood pressure under good control. Continue medication s. Encourage patient to continue to monitor blood pressure regularly. Dermatophytosis 67369777 Stable. Controlled . Continue current therapy/me dical plan of care. Depressive disorder 85916222 Stable. Controlled . Continue current therapy/me dical plan of care. Sciatica 39630100 Stable . Controlled . Continue current therapy/me dical plan of care. Hyperlipidemia 07634612 Discussed lipid profile. Discussed risks and benefits of therapy. Lipid not at goal based on current overall risk factors. Discussed risks and benefits of therapy. See patient instructio ns for medical plan of care. 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 Discussed the diagnosis as well as the risks and benefits of therapy/ev aluation. Reviewed the goals of patient's hemoglobin A1 C based on risks and benefits and possibilit ies of hypoglycem ia. Discussed current recommenda tions. Reviewed at length with the patient options available to get patient's blood sugars under control and minimize/c ontrol further complicati ons. Patient understand s the risks and benefits of declining or accepting treatment. Please see patient instructio ns for any additional informatio n concerning medical plan of care. Psoriasis with arthropathy 39469482 Stable. Controlled . Continue current therapy/me dical plan of care. Essential hypertension 76735451 Blood pressure under good control. Continue medication s. Encourage patient to continue to monitor blood pressure regularly. Depressive disorder 63172195 Discussed the diagnosis as well as the risks and benefits of therapy/ev aluation. Patient understand s the risks and benefits of declining or accepting treatment. Please see patient discharge instructio ns for any additional informatio n concerning medical plan of care. Sciatica 26571724 Stable . Controlled . Continue current therapy/me dical plan of care. Hyperlipidemia 95052311 Stable. Controlled . Continue current therapy/me dical plan of care. [id number] Sharri spivey [place] [address] 10/06/2013 13:44:53 10/07/2013 16:41:23 Muscle pain 37090793 [id number] Kalpana Castro [place] [address] 10/08/2013 09:20:46 10/08/2013 10:37:32 Hematoma 191058374 [id number] Rakesh Clark Jr, MD [place] [address] 8 12/15/2013 17:18:09 12/15/2013 18:13:37 Sciatica 57554510 Stable. Controlled . Continue current therapy/me dical plan of care. 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 Hemoglobin A1c stable. Reviewed current glycemic goals. Continue current treatment. Psoriasis with arthropathy 18037301 improving. Stable. Controlled . Continue current therapy/me dical plan of care. Essential hypertension 34278594 Blood pressure under good control. Continue medication s. Encourage patient to continue to monitor blood pressure regularly. Depressive disorder 89445265 Stable. Controlled . Continue current therapy/me dical plan of care. Hyperlipidemia 47724187 Discussed lipid profile. Discussed risks and benefits of therapy. Lipid at goal based on current overall risk factors. Continue current therapy. Screening mammography [id number] Rakesh Clark Jr, MD [place] [address] 01/19/2014 17:30:38 01/19/2014 19:11:48 Bursitis of shoulder 880470745 Discussed the diagnosis as well as the risks and benefits of therapy/ev aluation. Patient understand s the risks and benefits of declining or accepting treatment. Please see patient discharge instructio ns for any additional informatio n concerning medical plan of care. Acute sinusitis 79339276 Discussed the diagnosis as well as the risks and benefits of therapy/ev aluation. Patient understand s the risks and benefits of declining or accepting treatment. Please see patient discharge instructio ns for any additional informatio n concerning medical plan of care. 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 Hemoglobin A1c stable. Reviewed current glycemic goals. Continue current treatment. Essential hypertension 19930137 Blood pressure not controlled . Low Salt diet encouraged consider adjustment in medical therapy. Encourage patient to monitor blood pressure regularly. Discussed risks and benefits of therapy. See patient instructio ns for medical plan of care. Depressive disorder 83701100 Stable. Controlled . Continue current therapy/me dical plan of care. Hyperlipidemia 97046129 Discussed lipid profile. Discussed risks and benefits of therapy. Lipid at goal based on current overall risk factors. Continue current therapy. Obesity 545962822 Discus sed the diagnosis as well as the risks and benefits of therapy/ev aluation. Patient understand s the risks and benefits of declining or accepting treatment. Please see patient discharge instructio ns for any additional informatio n concerning medical plan of care. Psoriasis with arthropathy 99534050 Stable. Controlled . Continue current therapy/me dical plan of care. Screening for malignant neoplasm of colon 009726755 Screening mammography 80400896 Disorder o f nervous system due to type 2 diabetes mellitus 297738178 chronic, controlled . Continue same, recheck labs as per schedule. Polyneurop athy due to diabetes mellitus 31917772 chronic, controlled . Continue same regimen. Recheck as scheduled Menopausal symptom 30565581 Recurrent major depressive episodes 295795371 chronic, improving. Continue medication regimen as noted and follow up as scheduled. 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 Controlled . Continue current therapy/me dical plan of care. Psoriasis with arthropathy 79651049 Stable. Controlled . Continue current therapy/me dical plan of care. Manic bipo lar I disorder [id number] Current medical problem uncontroll ed. Discussed the diagnosis as well as different treatment option, and the risks and benefits of therapy/ev aluation. Reviewed goals of treatment with patient. Patient understand s the risks and benefits of declining or accepting treatment. Please see patient discharge instructio ns for any additional informatio n concerning medical plan of care. [id number] Jessie Franco [facility] [address] [place] [address] 12/02/2014 16:48:52 12/07/2014 12:32:24 Adult health examination [id number] Z00.00 Discussed preventive medicine and screening strategies with patient and family. Continue Yearly evaluation and monitoring . See Out Patient Guide/[facility] [facility] for plan of care and to see what needed to be ordered to keep patient up to Date. Polyneurop athy due to diabetes mellitus 59516732 E11.42 Patient's sugars are not at goal. Discussed the diagnosis as well as the risks and benefits of therapy/ev aluation. Reviewed the goals of patient's hemoglobin A1 C and sugars (fasting and post prandial) based on risks and benefits and possibilit ies of hypoglycem ia. Discussed current recommenda tions. Reviewed at length with the patient options available to get patient's blood sugars under control and minimize/c ontrol further complicati ons. Patient understand s the risks and benefits of declining or accepting treatment. Please see patient instructio ns for any additional informatio n concerning medical plan of care. Increase her Metformin. Essential hypertension 35148438 I10 Blood pressure not controlled . Low Salt diet encouraged consider adjustment in medical therapy. Encourage patient to monitor blood pressure regularly. Discussed risks and benefits of therapy. See patient instructio ns for medical plan of care. Hyperlipidemia 88692449 E78.5 Discussed lipid profile. Discussed risks and benefits of therapy. Lipid at goal based on current overall risk factors. Continue current therapy. Menopausal symptom 78469 002 N95.1 Current medical problem uncontroll ed. Discussed the diagnosis as well as different treatment option, and the risks and benefits of therapy/ev aluation. Reviewed goals of treatment with patient. Patient understand s the risks and benefits of declining or accepting treatment. Please see patient discharge instructio ns for any additional informatio n concerning medical plan of care. Discussed hormone replacemen t therapy with the patient. 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 She is also going to follow up with her counselor. She is to continue with her antidepres kelvin medication s. Psoriasis with arthropathy 62632960 L40.50 Stable. Improving flare. Continue current therapy/me dical plan of care. Recurrent major depressive episodes 202396635 F33.1 Discussed the diagnosis as well as the risks and benefits of therapy/ev aluation. Patient understand s the risks and benefits of declining or accepting treatment. Please see patient discharge instructio ns for any additional informatio n concerning medical plan of care. Continue medication regimen as noted and follow up as scheduled. Keep follow up with psychologi st. Consider adjusting meds and psychiatry consult. See how treatment of menopausal symptoms affects mood and tolerabili ty of current issues. Anemia cau sed by medication [id number] T50.905A follow up with rheumatolo gist. Will also check for iron deficiency and B12 deficiency .Discussed the diagnosis as well as the risks and benefits of therapy/ev aluation. Patient understand s the risks and benefits of declining or accepting treatment. Please see patient discharge instructio ns for any additional informatio n concerning medical plan of care. [id number] Stuart Morrison MD [facility] [address] [place] [address] 12/09/2014 08:28:06 12/09/2014 09:17:06 Psoriasis with arthropathy 96943281 L40.50 Patient experienci ng on going arthralgia s, I do not witness any swelling on exam, by her history she says she had swelling in ankle, feet and the prednisone helped but not a lot. I asked her to stop the OTC NSAIDs given her microcytic anemia, she has had PUD in past, I am going to check iron studies may need supplement , we may need to consider having her see GI again. I don't think this is the Humira, more tendency to cause leukopenia and low platelets. I asked her to stop the MTX now as well. Patient will try Tylenol 500 gm TID for 1 week, if pain not better we can send to PM. Continue Humira sq q 14 days. Long-term drug therapy [id number] Z79.899 Stop OTC NSAIDs, MTX. Next labs on follow up. Anemia 141230471 D64.9 microcytic , check iron studies, will call with results. [id number] Stuart Morrison MD [facility] [address] [place] [address] 03/10/2015 13:50:15 03/10/2015 14:12:34 Psoriasis with arthropathy 68290583 L40.50 No active psoriasis, no joint swelling or pain, patient able to function. Her labs are improved, anemia now better, she is off the MTX. Continue Humira sq every 14 days. Return 4 months. Long-term drug therapy 944032249 Z79.899 Tolerating medication s well, no adverse issues. Labs reviewed today. [id number] Kalpesh Kauffman MD [facility] [address] [place] [address] 05/26/2015 12:14:11 05/26/2015 15:34:46 Cough 44006268 R05 Present persistent productive coughing causing Lt TM trauma. Refers not allergic to prednisone but could cause her a manic episode of her Bipolar disorder, but she needs steroid now and refers she can control it with clonazepam . Currently no respirator y distress. Refers good tolerance to zithromax. Counseled about treatment and Breo sample given. Refer for ENT evaluation . [id number] Rakesh Clark Jr, MD [address] [place] [address] 06/28/2015 17:32:48 06/28/2015 18:49:57 Recurrent major depressive episodes 870890935 F33.1 Discussed the diagnosis as well as the risks and benefits of therapy/ev aluation. Patient understand s the risks and benefits of declining or accepting treatment. Please see patient discharge instructio ns for any additional informatio n concerning medical plan of care. Continue medication regimen as noted and follow up as scheduled. Keep follow up with psychologi st. Consider adjusting meds and psychiatry consult. See how treatment of menopausal symptoms affects mood and tolerabili ty of current issues. Psoriasis with arthropathy 87493527 L40.50 Current medical problem uncontroll ed. Discussed the diagnosis as well as different treatment option, and the risks and benefits of therapy/ev aluation. Reviewed goals of treatment with patient. Patient understand s the risks and benefits of declining or accepting treatment. Please see patient discharge instructio ns for any additional informatio n concerning medical plan of care. Herniation of rectum into vagina 270397375 N81.6 She reports that she saw the gynecologi st and not only has fluid in and ovary but also has her rectum prolapsing into her vaginal canal. Continues to cause her discomfort and pain.Discu ssed the diagnosis as well as the risks and benefits of therapy/ev aluation. Patient understand s the risks and benefits of declining or accepting treatment. Please see patient discharge instructio ns for any additional informatio n concerning medical plan of care. Otalgia 54728196 H92.02 She was seen in the emergency room/[facility] for left ear pain with bleeding. She was treated for an infection and is here for follow up as well. She denies any more symptoms. She is currently just showing evidence of excoriatio ns inside the ear canal from use of Q-tips. Counseled her to decrease this use.Discus sed the diagnosis as well as the risks and benefits of therapy/ev aluation. Patient understand s the risks and benefits of declining or accepting treatment. Please see patient discharge instructio ns for any additional informatio n concerning medical plan of care. Polyneurop athy due to diabetes mellitus 55135099 E11.42 Patient's sugars are not at goal. Discussed the diagnosis as well as the risks and benefits of therapy/ev aluation. Reviewed the goals of patient's hemoglobin A1 C and sugars (fasting and post prandial) based on risks and benefits and possibilit ies of hypoglycem ia. Discussed current recommenda tions. Reviewed at length with the patient options available to get patient's blood sugars under control and minimize/c ontrol further complicati ons. Patient understand s the risks and benefits of declining or accepting treatment. Please see patient instructio ns for any additional informatio n concerning medical plan of care. Will get labs on her. She's no longer on the steroids hopefully this helps somewhat. She admits to having poor glycemic control at this time. In part due to the excessive amount of stress she is under. Manic bipo lar I disorder 88750810 F31.10 Discussed the diagnosis as well as the risks and benefits of therapy/ev aluation. Patient understand s the risks and benefits of declining or accepting treatment. Please see patient discharge instructio ns for any additional informatio n concerning medical plan of care. 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 Patient understand s the risks and benefits of declining or accepting treatment. Please see patient discharge instructio ns for any additional informatio n concerning medical plan of care. Hyperlipidemia 52647240 E78.5 Discussed lipid profile. Discussed risks and benefits of therapy. Lipid at goal based on current overall risk factors. Continue current therapy. Essential hypertension 25456760 I10 Blood pressure not controlled . Low Salt diet encouraged consider adjustment in medical therapy. Encourage patient to monitor blood pressure regularly. Discussed risks and benefits of therapy. See patient instructio ns for medical plan of care. [id number] Stuart Morrison MD [facility] [address] [place] [address] 07/08/2015 14:06:44 07/08/2015 14:43:00 Psoriasis with arthropathy 15304329 L40.50 Since last visit she has some active psoriasis on her scalp, lower extremitie s and her back, also she has had progressiv mark worsening arthralgia s, stiffness in her hands, wrists, both knees, she has some minimal swelling in the third PIP of the left hand, she has increased spinal pain and stiffness. Morning stiffness increased to 30-60 minutes daily, continuous fatigue. Patient is having more difficulty with her function and her daily activities as well as in the last several months. It appears that her Humira has lost efficacy over the last few months, we did discuss the change in her treatment plan, we discussed switching her to Enbrel, all possible side effects and benefits were fully discussed with the patient today, she will need a TB screening as well, will obtain prior authorizat ion from her insurance carrier. Once approved patient will begin Enbrel 50 mg subcutaneo us weekly, she received an injection instructio ns from our nurse today. -Return in 8 weeks for reevaluati on. Long-term drug therapy 182331045 Z79.899 Patient is tolerating current medication s well, not reporting any adverse effects from medication s. Lab results reviewed today with patient, no issues in regards to current medication s. Next labs with follow-up appointmen bradford Armando is screening [id number] Z11.1 [id number] Rakesh Clark Jr, MD [address] [place] [address] 08/01/2015 15:13:19 08/01/2015 17:12:48 Psoriasis with arthropathy 63215691 L40.50 Current medical problem uncontroll ed. Discussed the diagnosis as well as different treatment option, and the risks and benefits of therapy/ev aluation. Reviewed goals of treatment with patient. Patient understand s the risks and benefits of declining or accepting treatment. Please see patient discharge instructio ns for any additional informatio n concerning medical plan of care. Recurrent major depressive episodes 354780426 F33.1 Discussed the diagnosis as well as the risks and benefits of therapy/ev aluation. Patient understand s the risks and benefits of declining or accepting treatment. Please see patient discharge instructio ns for any additional informatio n concerning medical plan of care. Continue medication regimen as noted and follow up as scheduled. Keep follow up with psychologi st. Consider adjusting meds and psychiatry consult. See how treatment of menopausal symptoms affects mood and tolerabili ty of current issues. Polyneurop athy due to diabetes mellitus 79741746 E11.42 Patient's sugars are not at goal. Discussed the diagnosis as well as the risks and benefits of therapy/ev aluation. Reviewed the goals of patient's hemoglobin A1 C and sugars (fasting and post prandial) based on risks and benefits and possibilit ies of hypoglycem ia. Discussed current recommenda tions. Reviewed at length with the patient options available to get patient's blood sugars under control and minimize/c ontrol further complicati ons. Patient understand s the risks and benefits of declining or accepting treatment. Please see patient instructio ns for any additional informatio n concerning medical plan of care. We'll have Onglyza to her current regimen. Continue to take the Metformin. Manic bipo lar I disorder 43879627 F31.10 Discussed the diagnosis as well as the risks and benefits of therapy/ev aluation. Patient understand s the risks and benefits of declining or accepting treatment. Please see patient discharge instructio ns for any additional informatio n concerning medical plan of care. Hyperlipidemia 41641525 E78.5 Discussed lipid profile. Discussed risks and benefits of therapy. Lipid at goal based on current overall risk factors. Continue current therapy. Essential hypertension 64005709 I10 Blood pressure under good control. Continue medication s. Encourage patient to continue to monitor blood pressure regularly. [id number] JOSETTE Lowe [facility] [address] [place] [address] 08/26/2015 14:50:01 08/26/2015 15:25:29 Psoriasis with arthropathy 14415758 L40.50 Continue with Enbrel 50 mg subcutaneo us weekly, Sed Rate is 2 . Discussed with the patient to call the office with any further questions or concerns. -Return in 8 weeks for reevaluati on. Long-term drug therapy 742979004 Z79.899 Patient is tolerating current medication s well, not reporting any adverse effects from medication s. Next labs with follow-up appointmen t. [id number] Rakesh Clark Jr, MD [address] [address] 08/29/2015 14:43:51 08/29/2015 16:05:05 Polyneuropathy due to diabetes mellitus 30182520 E11.42 Patient's sugars are not at goal. Discussed the diagnosis as well as the risks and benefits of therapy/ev aluation. Reviewed the goals of patient's hemoglobin A1 C and sugars (fasting and post prandial) based on risks and benefits and possibilit ies of hypoglycem ia. Discussed current recommenda tions. Reviewed at length with the patient options available to get patient's blood sugars under control and minimize/c ontrol further complicati ons. Patient understand s the risks and benefits of declining or accepting treatment. Please see patient instructio ns for any additional informatio n concerning medical plan of care. she has had some slight improvemen t in her A1c with the combinatio n of Onglyza and Metformin. Psoriasis with arthropathy 44330839 L40.50 Discussed diagnosis as well as risks and benefits of therapy. Continue current therapy/me dical plan of care. Continue to follow at this time. Will check labs as appropriat e. Hyperlipidemia 79678528 E78.5 Discussed lipid profile. Lipid not at goal based on current overall risk factors. Discussed risks and benefits of therapy. Reviewed benefits of dietary and lifestyle modificati ons as well as pharmacoth erapy. See patient instructio ns for medical plan of care. Will increase and change to Atorvastat in. Depressive disorder 3548 9007 F32.9 Stable. Controlled . Continue current therapy/me dical plan of care. Essential hypertension 75243521 I10 Stable. Controlled . Continue current therapy/me dical plan of care. Bipolar disorder 0596781 4 F31.74 Discussed diagnosis as well as risks and benefits of therapy. Continue current therapy/me dical plan of care. Continue to follow at this time. Will check labs as appropriat e. Sciatica 82204301 M54.30 Stable. Controlled . Continue current therapy/me dical plan of care. [id number] Kalpesh Kauffman MD [facility] [address] [place] [address] 10/19/2015 11:41:06 10/19/2015 13:20:33 Acute sinusitis 49977009 J01.90 Refers previous similar episodes. Already started guaifenesi n yesterday. Discussed diagnosis of sinusitis with patient. Instructed on safety and use of medication . Counseled on possible side effects and interactio ns. Encouraged the use of probiotics while taking antibiotic s. Increase fluid intake. Encouraged patient to rest. Saline spray into nostrils. Patient verbalized understand ing. No questions or concerns at this time. F/U Dr Clark. Cough 44948754 R05 X Rays done today present no acute findings. Cough associated to URT infection. Currently on treatment with Enbrel. [id number] Karin Wilson [facility] [address] [place] [address] 10/27/2015 15:43:16 10/31/2015 08:42:48 Cough 66672581 R05 Manic bipo lar I disorder 27636798 F31.10 Refer steroid treatment could trigger lexi but well control with short term treatment with Klonopin. Bronchitis 83148087 J40 Denies prednisone allergy but possibilit y that could trigger lexi. Patient with no improvemen t and signs of acute bronchitis . Labs done today WNL. Counseled about treatment and the need for short term low dose steroid treatment. Visit ER if symptoms worsen. F/U Dr Clark. [id number] Rakesh Clark Jr, MD [address] [place] [address] 11/07/2015 15:04:46 11/07/2015 16:37:33 Polyneuropathy due to diabetes mellitus 72035161 E11.42 She states that prior to moving to [place] she had been on 2400 mg of Gabapentin day for her neuropathy . She has tried the lower dose but her neuropathy continues to be extremely uncomforta ble. Will go ahead at this time and increase her to 600 mg 3 times a day and reviewed the workup that has been done on her in the past. Psoriasis with arthropathy 43069008 L40.50 Discussed diagnosis as well as risks and benefits of therapy. Continue current therapy/me dical plan of care. Continue to follow at this time. Will check labs as appropriat e. Hyperlipidemia 75939543 E78.5 Discussed lipid profile. Discussed risks and benefits of therapy. Lipid at goal based on current overall risk factors. Continue current therapy. Depressive disorder 3548 9007 F32.2 Part of the manifestat ion of her depression is her lexi. Will work aggressive ly at this time and try and control this by stopping the Paxil and change in her to Cymbalta.D iscussed the diagnosis as well as the risks and benefits of therapy/ev aluation. Patient understand s the risks and benefits of declining or accepting treatment. Please see patient discharge instructio ns for any additional informatio n concerning medical plan of care. Essential hypertension 83077945 I10 Stable. Controlled . Continue current therapy/me dical plan of care. Bipolar disorder 9596580 4 F31.11 I feel that her bipolar disorder especially the manic episode is beginning to manifest itself again. She is on the Clonazepam at this time and I think it would be in her best interest if we became more aggressive and treatment. Also can try to use a drug that may help her neuropathy . Subsequent ly will start her on Cymbalta. Sciatica 88087170 M54.30 Stable. Controlled . Continue current therapy/me dical plan of care. Peripheral neuropathic pain 829007434 M79.2 In reviewing her chart there does not appear to be clear indication that she had previous workup for her peripheral neuropathy . Will reevaluate d again at this time. Of course understand ing that she may have an elevated sedimentat ion rate and C-reactive proteins secondary to her psoriasis rather than the neuropathy itself.Dis cussed the diagnosis as well as the risks and benefits of therapy/ev aluation. Patient understand s the risks and benefits of declining or accepting treatment. Please see patient discharge instructio ns for any additional informatio n concerning medical plan of care. I also had some leftover neuropathy cream that had been formulated and had just enough to try it on her left foot. I've asked her to see if she notices any difference compared to what she has been using over-the-c ounter which is Aspercreme and 4% Lidocaine. If she has been we can see about having something compounded for her as well. Will also consider getting a nerve conduction study at her next visit to see if we can better differenti ate how much of this is from her back, her diabetes, her psoriasis, or a combinatio n of all of the above. [id number] Rakesh Clark Jr, MD [address] [address] 11/21/2015 17:48:37 11/22/2015 10:54:22 Polyneuropathy due to diabetes mellitus 63001332 E11.42 Will give her a prescripti on and trial of topical cream to see if this helps with her neuropathy .Discussed the diagnosis as well as the risks and benefits of therapy/ev aluation. Patient understand s the risks and benefits of declining or accepting treatment. Please see patient discharge instructio ns for any additional informatio n concerning medical plan of care. Bipolar disorder 0422797 4 F31.11 Stable. Controlled . Continue current therapy/me dical plan of care. Peripheral neuropathic pain 163370471 M79.2 Discussed the diagnosis as well as the risks and benefits of therapy/ev aluation. Patient understand s the risks and benefits of declining or accepting treatment. Please see patient discharge instructio ns for any additional informatio n concerning medical plan of care. Depressive disorder 3548 9007 F32.2 Discussed diagnosis as well as risks and benefits of therapy. Continue current therapy/me dical plan of care. Continue to follow at this time. Will check labs as appropriat e. Psoriasis with arthropathy 11728220 L40.50 Discussed diagnosis as well as risks and benefits of therapy. Continue current therapy/me dical plan of care. Continue to follow at this time. Will check labs as appropriat e. Hyperlipidemia 67796047 E78.5 Discussed lipid profile. Discussed risks and benefits of therapy. Lipid at goal based on current overall risk factors. Continue current therapy. Essential hypertension 26898796 I10 Stable. Controlled . Continue current therapy/me dical plan of care. Sciatica 51569759 M54.30 Stable. Controlled . Continue current therapy/me dical plan of care. Urinary incontinence 165 976246 R32 Continues to be uncontroll ed. Will send the patient to see a neurologis t for further treatment. Iron defic iency anemia 86299261 D50.9 Current medical problem uncontroll ed. Discussed the diagnosis as well as different treatment option, and the risks and benefits of therapy/ev aluation. Reviewed goals of treatment with patient. Patient understand s the risks and benefits of declining or accepting treatment. Please see patient discharge instructio ns for any additional informatio n concerning medical plan of care. [id number] JOSETTE Lowe [facility] [address] [place] [address] 11/28/2015 15:04:01 11/28/2015 15:59:32 Psoriasis with arthropathy 29670337 L40.50 Continue with Enbrel 50 mg subcutaneo us weekly, Sed Rate is 7 . Discussed with the patient to call the office with any further questions or concerns. Call the office if you have any further questions or concerns. -Return in 4 months with labs Long-term drug therapy [id number] Z79.899 Patient is tolerating current medication s well, not reporting any adverse effects from medication s. [id number] MD EBER Cobb Jr [address] [place] [address] 02/27/2016 10:00:53 02/27/2016 18:46:56 Bipolar disorder [id number] F31.11 Stable. Controlled . Continue current therapy/me dical plan of care. Menopausal symptom 41911 002 N95.1 Current medical problem uncontroll ed. Discussed the diagnosis as well as different treatment option, and the risks and benefits of therapy/ev aluation. Reviewed goals of treatment with patient. Patient understand s the risks and benefits of declining or accepting treatment. Please see patient discharge instructio ns for any additional informatio n concerning medical plan of care. Discussed hormone replacemen t therapy with the patient. 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 She is also going to follow up with her counselor. She is to continue with her antidepres kelvin medication s. Anemia [id number] D64.9 Discussed the diagnosis as well as the risks and benefits of therapy/ev aluation. Patient understand s the risks and benefits of declining or accepting treatment. Please see patient discharge instructio ns for any additional informatio n concerning medical plan of care. Hyperlipidemia 17627888 E78.5 Discussed lipid profile. Discussed risks and benefits of therapy. Lipid at goal based on current overall risk factors. Continue current therapy. Polyneurop athy due to diabetes mellitus 63339812 E11.42 Will change the Onglyza to a different drug because of not being covered by the insurance. Discussed the diagnosis as well as the risks and benefits of therapy/ev aluation. Patient understand s the risks and benefits of declining or accepting treatment. Please see patient discharge instructio ns for any additional informatio n concerning medical plan of care. Peripheral neuropathic pain 017763796 M79.2 Discussed the diagnosis as well as the risks and benefits of therapy/ev aluation. Patient understand s the risks and benefits of declining or accepting treatment. Please see patient discharge instructio ns for any additional informatio n concerning medical plan of care. Urinary incontinence 165 758209 R32 Discussed diagnosis as well as risks and benefits of therapy. Continue current therapy/me dical plan of care. Continue to follow at this time. Will check labs as appropriat e. Iron defic iency anemia 69099417 D50.9 Current medical problem uncontroll ed. Discussed the diagnosis as well as different treatment option, and the risks and benefits of therapy/ev aluation. Reviewed goals of treatment with patient. Patient understand s the risks and benefits of declining or accepting treatment. Please see patient discharge instructio ns for any additional informatio n concerning medical plan of care. Depressive disorder 3548 9007 F32.2 Discussed diagnosis as well as risks and benefits of therapy. Continue current therapy/me dical plan of care. Continue to follow at this time. Will check labs as appropriat e. Psoriasis with arthropathy 86268748 L40.50 Discussed diagnosis as well as risks and benefits of therapy. Continue current therapy/me dical plan of care. Continue to follow at this time. Will check labs as appropriat e. Sciatica 92635381 M54.30 Stable. Controlled . Continue current therapy/me dical plan of care. Hypertensive disorder 38 984305 I10 Blood pressure under good control. Continue medication s. Encourage patient to continue to monitor blood pressure regularly. Complicati on due to diabetes mellitus 03169586 E11.8 [id number] JOSETTE Lowe [facility] [address] [facility] [place] [address] 04/02/2016 15:34:49 04/02/2016 16:24:06 Psoriasis with arthropathy 73612128 L40.50 controlled : no active psoriasis, joint tenderness or synovitis on exam today; Morning stiffness less than 1 hour with mild fatigue and no sleeping difficulti es. Patient is active and able to do her daily activities Continue with Enbrel 50 mg subcutaneo us weekly, Sed Rate is 11 and CRP was 0.8 . Return in 3 months with labs Long-term drug therapy [id number] Z79.899 Patient is tolerating current medication s well, not reporting any adverse effects from medication s. Next labs with follow-up appointmen t. [id number] JOSETTE Lowe [facility] [address] [facility] [place] [place] [address] 06/26/2016 13:12:08 06/26/2016 14:03:49 Psoriasis with arthropathy 08087315 L40.50 controlled : no active psoriasis, joint tenderness or synovitis on exam today; Morning stiffness less than 1 hour with mild fatigue and no sleeping difficulti es. Patient is active and able to do her daily activities Continue with Enbrel 50 mg subcutaneo us weekly, Sed Rate is 2 and CRP was 0.10 . [place] and will notify us when establishe d with new Rheumatolo gist Long-term drug therapy [id number] Z79.899 Patient is tolerating current medication s well, not reporting any adverse effects from medication s. Next labs with follow-up appointmen t. [id number] MD EBER Cobb Jr [address] [place] [address] 06/27/2016 08:49:08 07/04/2016 17:19:46 Bipolar disorder 30942820 F31.11 Stable. Controlled . Continue current therapy/me dical plan of care. Menopausal symptom 49930 002 N95.1 Discussed diagnosis as well as risks and benefits of therapy. Continue current therapy/me dical plan of care. Continue to follow at this time. Will check labs as appropriat e. Hyperlipidemia 78676579 E78.5 Discussed lipid profile. Discussed risks and benefits of therapy. Lipid at goal based on current overall risk factors. Continue current therapy. Polyneurop athy due to diabetes mellitus 58475756 E11.42 Doing well. Hemoglobin A1c stable. Reviewed current glycemic goals. Continue current treatment. Peripheral neuropathic pain 920556255 M79.2 Discussed diagnosis as well as risks and benefits of therapy. Continue current therapy/me dical plan of care. Continue to follow at this time. Will check labs as appropriat e. Urinary incontinence 165 007546 R32 Discussed diagnosis as well as risks and benefits of therapy. Continue current therapy/me dical plan of care. Continue to follow at this time. Will check labs as appropriat e. Iron defic iency anemia 84539862 D50.9 Current medical problem uncontroll ed. Discussed the diagnosis as well as different treatment option, and the risks and benefits of therapy/ev aluation. Reviewed goals of treatment with patient. Patient understand s the risks and benefits of declining or accepting treatment. Please see patient discharge instructio ns for any additional informatio n concerning medical plan of care. Depressive disorder 9618 9007 F32.2 Discussed diagnosis as well as risks and benefits of therapy. Continue current therapy/me dical plan of care. Continue to follow at this time. Will check labs as appropriat e. Psoriasis with arthropathy 47175045 L40.50 Discussed diagnosis as well as risks and benefits of therapy. Continue current therapy/me dical plan of care. Continue to follow at this time. Will check labs as appropriat e. Sciatica 63530561 M54.30 Stable. Controlled . Continue current therapy/me dical plan of care. Hypertensive disorder 38 493808 I10 Blood pressure under good control. Continue medication s. Encourage patient to continue to monitor blood pressure regularly. Adult heal th examination 520626524 Z00.01 Welcome to Medicare Visit done today. Recurrent major depressive episodes 653585438 F33.1 Discussed the diagnosis as well as the risks and benefits of therapy/ev aluation. Patient understand s the risks and benefits of declining or accepting treatment. Please see patient discharge instructio ns for any additional informatio n concerning medical plan of care. Continue medication regimen as noted and follow up as scheduled. Keep follow up with psychologi st. Consider adjusting meds and psychiatry consult. See how treatment of menopausal symptoms affects mood and tolerabili ty of current issues. Anemia cau sed by medication 832549345 T50.905A Discussed diagnosis as well as risks and benefits of therapy. Continue current therapy/me dical plan of care. Continue to follow at this time. Will check labs as appropriat e. Obesity 860822814 E66.9 Discussed the diagnosis as well as the risks and benefits of therapy/ev aluation. Patient understand s the risks and benefits of declining or accepting treatment. Please see patient discharge instructio ns for any additional informatio n concerning medical plan of care. 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 Patient understand s the risks and benefits of declining or accepting treatment. Please see patient discharge instructio ns for any additional informatio n concerning medical plan of care. Morbid obesity 159730286 E66.01 weight issues discussed and informatio n on weight loss given. needs follow up on weight control as scheduled. Education handout on diets given. Exercise counseling done. Will arrange referral for dietitian, nutritioni st, Physical/o ccupationa l therapy as needed or desired. Also will consider pharmaceut ical and supplement al interventi ons Body mass index 40+ - severely obese 781622400 Z68.41 BMI 40.0-44.9. See Morbid Obesity above for details. Herniation of rectum into vagina 924182107 N81.6 She reports that she saw the gynecologi st and not only has fluid in and ovary but also has her rectum prolapsing into her vaginal canal. Continues to cause her discomfort and pain.Discu ssed the diagnosis as well as the risks and benefits of therapy/ev aluation. Patient understand s the risks and benefits of declining or accepting treatment. Please see patient discharge instructio ns for any additional informatio n concerning medical plan of care. Gastro-eso phageal reflux disease with esophagitis 417077893 K21.0 Discussed diagnosis as well as risks and benefits of therapy. Continue current therapy/me dical plan of care. Continue to follow at this time. Will check labs as appropriat e. Fibromyalgia 854706995 M 79.7 Discussed diagnosis as well as risks and benefits of therapy. Continue current therapy/me dical plan of care. Continue to follow at this time. Will check labs as appropriat e. Health Concerns Section Related Observation LastModified by Organization Detai ls LastModified Time None Recorded Concern Status LastModified by Organization Details LastModified Time None Recorded Advance Directives Directive N: PT WISHES TO BE [employer]US[employer] [place] BUT DOESN'T WANT HER LIFE PROLONGED IF THERE IS NO REASONABLE CHANCE OF FUNCTIONAL RECOVERY Payers Encounter Date Sequence Insurance Name Policy Number Policy Lim Covered Member ID Lim Member ID Guarantor Name 11/28/2015 1 [place] [employer] [place] OPT[place] (O) [id number] Kelly Peacock [id number] Kelly A Rio 02/27/2016 1 [place] Kelly Ann SheldonPeacock [id number] Kelly A Rio 04/02/2016 1 [place]MED[place] HMO) [id number] Kelly Ann SheldonPeacock [id number] Kelly A Rio 06/26/2016 1 [place] [id number] Kelly Ann SheldonPeacock [id number] Kelly A Rio 06/27/2016 1 [place] Kelly A Peacock [id number] Kelly A Rio Notes Date Note Type Note Provider Name and Address Organization Details Recorded Time 6 text/html Rheumatology GeneralReported bypatient.Reason for visit:continued care of chronic complaintNotes:Patient returns for follow-up of her psoriatic arthritis. Medications are Enbrel 50 mg weekly. Patient reporting no breakouts of her psoriasis, she has several patches in her lower extremities that are healing. Denies any joint pain, swelling or stiffness. Morning stiffness less than 1 hour with mild fatigue and no sleeping difficulties. Patient is active and able to do her daily activities Tolerating her current medication well. Labs discussed during her visit today Rupesh Wood, ORNAMENTAL IRON WORKER HELPER [address] [facility], [place], [address], [facility] 11/28/2015 16:08:29 7 text/html ArthritisReported bypatient.Reason for visit:follow-up of exacerbation of chronic complaint Diagnosis:Psoriatic arthritis Current control and compliance:usually well controlled/stable; usually compliant with regimen Current symptoms/concerns:no side effectsNotes:Her symptoms worsened on the Humira with Methotrexate. She has recently been switched to Enbrel and the other 2 medications stopped. She takes Prednisone for acute flares. Currently her symptoms are improved.Back PainReported bypatient.Reason for visit:continued care of chronic complaint Location:lumbar;pain radiates to leg(s) Quality:tingling Severity:moderate; better Duration:intermittent Onset/Timing:recurrent episode Context:history of prior back problems Alleviating Factors:relieved by changing position Aggravating Factors:movement/position ing;bending over Associated Symptoms:numbness of the legs/feet;tingling; denies fever; denies weak limbsDepression Major*Reported bypatient.Reason for visit:continued care of chronic complaint Diagnosis:Bipolar Additional Symptoms*:(at least 4 must be present)sleep disturbance;behavior changes;poor concentration or indecisiveness Severity:severe Alleviating factors:medication; counseling Associated Symptoms:denies suicidal ideations; mood good; no isolation; energy good; maintaining functionality;emotional lability;high irritability;anxietyNotes :Takes medications regularly. Denies any worsening symptoms of anxiety or depression. Denies suicidal or homicidal ideation. Feels symptoms are currently stable. She was recently given steroids for an acute rhonchi this. Generally she tends to have some lexi with this. Normally it is only during the time of the use of the steroids. She admits now that she may have been developing some manic issues prior to starting the steroids and has definitely noticed that she is mildly had it in this direction. For this reason she had a refill on her Clonazepam which she says has helped. Because of financial issues as well as her immediate family did not feel comfortable with her moving in with them and bringing all of her pets she has been forced to stay at the same residence as her . She says the emotional and mental disorder continues. She had been seeing a psychologist but this individual left. She was seeing them only when necessary. She has not reestablished with another psychologist but she is willing to do so.She has subsequently been forced to try and go back to work. She is still on disability but this is not enough to cover their expenses. There is a program that allows her to work and abbreviated amount of hours and maintain her disability as she attempts to reenter the workforce. 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 Also because there is a lot of walking and going from room to room more building to building it is worsening with the neuropathy in her feet and this is causing her problems as well.Diabetes with Complications*Reported bypatient.Reason for visit:continued care of chronic complaint Diabetes*:type 2 with complications Neurological manifestations*:diabetic polyneuropathy Diabetic Manifestations, other*:polymycrobial cellulits Review finger sticks:blood glucose data brought to clinic visit: no; frequency of blood glucose monitoring: <1 times daily. Current therapy:Metformin Metabolic Control and Effort:usually compliant with regimen Self Care:taking an NAEEM inhibitor; taking a statin; checking feet regularly; seeing eye doctor regularlyNotes:Takes medications regularly. Denies any symptoms of hypoglycemia. Checks feet regularly for lesions. Sees the eye doctor at least once a year. Denies polyuria, polydipsia, or polyphagia.She has been taking the Onglyza And the Metformin. She does not check her blood sugars. She has not been exercising regularly and has not been watching her diet.DyslipidemiaReported bypatient.Reason for visit:continued care of chronic complaint Diagnosis:hyperlipidemia Current therapy:medication list reviewed Current control and compliance:usually well controlled, asymptomatic; usually compliant with regimen Current Symptoms/Concerns:none statedNotes:Takes medications regularly. Tries to follow a low-fat low-cholesterol diet. Denies any muscle aches or weakness.Hypertension/Hyp ertensive diseasesReported bypatient.Reason for visit:continued care of chronic complaint Hypertension Diagnosis:Malignant hypertension Complications due to HTN:no complicatons Current therapy:medication list reviewed; using other therapeutic lifestyle changes; no side effects from medication Current control and compliance:usually compliant with regimen; checks bp regularly with home monitor;usually poorly controlled Current Symptoms/Concerns:none stated; no chest pain; no shortness of breath; no headaches; no blurred vision; no edemaNotes:Takes blood pressure medications regularly. Tries to avoid salty foods. Denies any side effects currently from medications. Blood pressure has been very difficult to control. Generally though it has been under better control.Neurologic Complaint - Chronic*Reported bypatient.Reason for visit:continued care of chronic complaint Diagnosis*:lumbar radiculopathy;Polyneuropa thy; burning sensation: in both arms or hands Complications due to diagnosis:frequent wounds Current therapy:medication list reviewed Current control and compliance:usually compliant with regimen;usually poorly controlled Current symptoms/concerns:worseni ng symptomsNotes:She has been having significant worsening of symptoms as far as the burning and pain in her feet. Predominantly the dorsum of her feet. Left foot worse than right but they're both very bad. She says that the symptoms are getting worse and he coming unbearable. Rakesh Clark Jr, MD [address], [place], [address], [facility] [place] [facility] 03/19/2016 01:38:55 7 text/html Rheumatology GeneralReported bypatient.Reason for visit:continued care of chronic complaintNotes:Patient returns for follow-up of her psoriatic arthritis. Medications are Enbrel 50 mg weekly. Patient reporting no breakouts of her psoriasis, she has several patches in her lower extremities that are healing. Denies any joint pain, swelling or stiffness. Morning stiffness less than 1 hour with mild fatigue and no sleeping difficulties. Patient is active and able to do her daily activities Tolerating her current medication well. Labs discussed during her visit today JOSETTE Lowe [address], [place], [address], [facility] [place] [facility] 04/02/2016 16:29:19 7 text/html Rheumatology GeneralReported bypatient.Reason for visit:continued care of chronic complaintNotes:Patient returns for follow-up of her psoriatic arthritis. Medications are Enbrel 50 mg weekly. Patient reporting no breakouts of her psoriasis, she has several patches in her lower extremities that are healing. Denies any joint pain, swelling or stiffness. Morning stiffness less than 1 hour with mild fatigue and no sleeping difficulties. Patient is active and able to do her daily activities Tolerating her current medication well. Labs discussed during her visit today, she is relocating [place]. JOSETTE Lowe [address], [place], [address], [facility] [place] 06/26/2016 14:31:24 7 text/html ArthritisReported bypatient.Reason for visit:exacerbation of chronic complaint Diagnosis:Psoriatic arthritis Current control and compliance:usually well controlled/stable; usually compliant with regimenNotes:On Humira, and Methotrexate. Her symptoms have been worsening lately and she is in a flare. Rash and arthralgias and swelling of her joints significantly decreased.Back PainReported bypatient.Reason for visit:continued care of chronic complaint Location:lumbar;pain radiates to leg(s) Quality:tingling Severity:moderate; better Duration:intermittent Onset/Timing:recurrent episode Context:history of prior back problems Alleviating Factors:relieved by changing position Aggravating Factors:movement/position ing;bending over Associated Symptoms:numbness of the legs/feet;tingling; denies fever; denies weak limbsDepression Major*Reported bypatient.Reason for visit:exacerbation of chronic complaint Diagnosis:Major depression Additional Symptoms*:(at least 4 must be present)sleep disturbance;behavior changes;poor concentration or indecisiveness Severity:moderate Duration*:almost every day, most of the day Alleviating factors:medication Associated Symptoms:denies suicidal ideations; energy good; maintaining functionality;emotional lability;high irritability;anxiety;grie ving;despair/hopelessness Notes:She went to see a psychiatrist/psychiatric nurse practitioner and has subsequently been counseled on not adjusting her meds. Prior to this she had been doing fairly well. She is going through a divorce and she and her are fighting all the time. She plans [place] back [place].Diabetes with Complications*Reported bypatient.Reason for visit:continued care of chronic complaint Diabetes*:type 2 with complications Neurological manifestations*:diabetic polyneuropathy Diabetic Manifestations, other*:polymycrobial cellulits Review finger sticks:blood glucose data brought to clinic visit: no; frequency of blood glucose monitoring: <1 times daily. Current therapy:Metformin Metabolic Control and Effort:usually compliant with regimen Self Care:taking an NAEEM inhibitor; taking a statin; checking feet regularly; seeing eye doctor regularlyNotes:Takes medications regularly. Denies any symptoms of hypoglycemia. Checks feet regularly for lesions. Sees the eye doctor at least once a year. Denies polyuria, polydipsia, or polyphagia.She has not been taking the Onglyza. She has only been taking the Metformin. She does not check her blood sugars. She has not been exercising regularly and has not been watching her diet.Hypertension/Hyperte nsive diseasesReported bypatient.Reason for visit:continued care of chronic complaint Hypertension Diagnosis:Malignant hypertension Complications due to HTN:no complicatons Current therapy:medication list reviewed; using other therapeutic lifestyle changes; no side effects from medication Current control and compliance:usually compliant with regimen; checks bp regularly with home monitor;usually poorly controlled Current Symptoms/Concerns:none stated; no chest pain; no shortness of breath; no headaches; no blurred vision; no edemaNotes:Takes blood pressure medications regularly. Tries to avoid salty foods. Denies any side effects currently from medications. Blood pressure has been very difficult to control and she has been on many meds recentlyMedicare Annual Wellness VisitReported bypatient.Visit type:welcome to Medicare IP PMH/PSH/Rx and Social History Review:updated EMR in appropriate tabs; other providers updatedNeurologic Complaint - Chronic*Reported bypatient.Reason for visit:continued care of chronic complaint Diagnosis*:lumbar radiculopathy; burning sensation: in both arms or hands Complications due to diagnosis:frequent wounds Current therapy:medication list reviewed Current control and compliance:usually compliant with regimen Current symptoms/concerns:worseni ng symptoms; no side effectsNotes:has pain in her lumbar spine that goes down the right thigh/leg past the knee Rakesh Clark Jr, MD [address] [address], [place], [id number], [facility] - [facility], [facility] 07/11/2016 17:09:31 OBGyn Episode No OBEpisode recorded.
--- OUTSIDE RECORDS SUMMARY | 2024-03-09 17:15 | XMS_ITS | Encounter Summary ---
Author Organization [facility] Address [address] [place] [address] Care Team Providers Care Outdoor Adventure Guides Name Role Phone Almaz Billy MD Primary Care Provider [phone] Encounter Details Date Type Department Care Team (Late st Contact Info) Description 02/10/2024 Telephone Gastroenterology - [address] [place] [phone] Laz Brennan PA [address] [place] [id number] Social History Tobacco Use Types Packs/Day Years [...] encounter Progress Notes * LONNIE Devlin - 02/10/2024 5:00 PM EST Spoke with pt. Fecal maximo level elevated, indicating inflammation in the intestine. Other stool studies were normal. Pt has CT scheduled for 02/23 due to wt loss, diarrhea, etc. May need repeat colonoscopy. Pt has office f/u 03/02 as well. documented in this encounter Plan of Treatment Not on file documented as of this encounter Visit Diagnoses Not on filedocumented in this encounter Care Teams Outdoor Adventure Guides Relationship Specialty Start Date End Date Almaz Billy MD [address] [place] [phone] PCP - General Internal Medicine 01/29/24 documented as of this encounter
== END 2024-03-09 12:31 | disposition home or self-care (01) ==
LOC: HO.HMGCLDS 12:30
PROVIDERS: PCP Internal Medicine; Visit Provider Internal Medicine
DX: E11.9 Type 2 diabetes mellitus without complications (principal); I10 Essential (primary) hypertension; E78.5 Hyperlipidemia, unspecified
CPT/HCPCS: 36415; 80053; 80061; 82043; 82570; 83036; 85025

== ENCOUNTER 2024-03-16 09:42 | Outpatient (AMB) | payer MEDICARE, MEDICAID, SELFPAY ==
[2024-03-16 09:44] VITALS: BP 118/80; PULSE 87; RESP 20; TEMP 36.7; O2SAT 99; BMI 27.5
--- NOTE | 2024-03-16 09:44 | AM.OFFVISMDC ---
Intake Vital Signs 03/16/24 09:44 Height 5 ft 3 in Weight 155 lb BMI 27.5 BP 118/80 Blood Pressure Location Lt brachial Position Sitting Respiration 20 Pulse 87 Pulse Source Pulse Oximeter Temp 98.0 F Temp Source Oral Pulse Oximetry (%) 99 Oxygen Delivery Method Room Air Intake Visit Reasons: AWV G0438 Allergies amlodipine [From Norvasc] Allergy (Unknown, Verified 03/16/24 09:45) Anaphylaxis chlorthalidone Allergy (Unknown, Verified 03/16/24 09:45) Anaphylaxis doxycycline Allergy (Unknown, Verified 03/16/24 09:45) Anaphylaxis erythromycin base Allergy (Unknown, Verified 03/16/24 09:45) Anaphylaxis loracarbef [From Lorabid] Allergy (Unknown, Verified 03/16/24 09:45) Anaphylaxis prednisone Allergy (Unknown, Verified 03/16/24 09:45) manic Sulfa (Sulfonamide Antibiotics) Allergy (Unknown, Verified 03/16/24 09:45) anaphylaxis sulfamethoxazole [From Bactrim] Allergy (Unknown, Verified 03/16/24 09:45) Anaphylaxis trimethoprim [From Bactrim] Allergy (Unknown, Verified 03/16/24 09:45) Anaphylaxis Lorabid Allergy (Unknown, Uncoded 03/16/24 09:45) anaphylaxis Medication List - Last Reconciled 03/16/24 by Almaz Billy MD albuterol sulfate 0.63 mg (3 mL) inhalation Q6H albuterol sulfate 90 mcg/actuation 2 puffs inhalation Q6H PRN atorvastatin 40 mg PO DAILY budesonide-formoterol 80-4.5 mcg/actuation (Symbicort) 2 puffs inhalation BID buspirone mg PO cetirizine 10 mg PO DAILY PRN clonazepam mg PO gabapentin 600 mg PO BID hydrochlorothiazide 25 mg PO DAILY meloxicam 7.5 mg PO DAILY metformin 1,000 mg (2 x 500 mg) PO BID nebulizers Nebulizer and supplies olmesartan 40 mg PO DAILY omeprazole 20 mg PO BID promethazine-codeine 6.25-10 mg/5 mL 5 mL PO Q6H PRN 7 days secukinumab 150 mg subcut .2 times a month semaglutide (Ozempic) 0.5 mg (0.736 mL) subcut QWEEK tizanidine 4 mg PO TID PRN HPI HPI Comments History of Present Illness Details Initiated the conversation about Advanced Directives. Advanced Directives help? patients prepare for current and future decisions about their medical treatment? and place of care. Discussed with patient that it is a process where a patients? current condition and prognosis are reviewed, their wishes for information? regarding their illness are elicited, and likely medical dilemmas are presented? and options discussed. The form can be amended as needed, reviewed yearly and? make changes as needed IPPE/AWV ? year old presents? for her ? Annual? Wellness Visit, initial visit.? Medical / Social History Reviewed? Past Medical History ?Yes? . ? [place]? of Care / Care Team list updated ?Yes . ? Surgical/Hospitalization? History ?Yes . ? Current Medications? (including OTC and supplements) ?Yes . ? Family History ?Yes? . ? Tobacco? Control form ?Yes . ? AUDIT-C (Alcohol use) form? ?Yes . ? Illicit drug use in Social? History ?Yes . ? Current diagnosis of? depression? ?No ? Appropriate PHQ2/PHQ9? completed ?Yes . ? Data entered by ?Medical? Separator Inserter and reviewed by provider ? Fall Risk ? Fall? History? Have you had any falls with? injury in the past year? ?No . ? Have you had two or more? falls in the past year? ?No . ? Fall Risk Assessment: ?No? falls in the past year . ? HRA filled out by? the patient, reviewed by Provider and scanned. ? IPPE/AWV ? Balance? [place]? ?Yes . ? Tandem? walk ?Yes . ? Walk and? Turn ?Yes . ? Rise from? sit to stand ?Yes . ?Vision? Corrective? lens ?Yes ? Vision? screen ? Up-to-date, has an appointment [] for vision? screening and glaucoma screening ?Hearing? Whisper? test ?pass .? Initiated the conversation about Advanced Directives. Advanced Directives help? patients prepare for current and future decisions about their medical treatment? and place of care. Discussed with patient that it is a process where a patients? current condition and prognosis are reviewed, their wishes for information? regarding their illness are elicited, and likely medical dilemmas are presented? and options discussed. The form can be amended as needed, reviewed yearly and? make changes as needed Written? Plan?Completed. See Patient? Documents. [facility] Medical History Asthma Fall Annual physical exam IBS (irritable bowel syndrome) Mammogram normal Fatty liver Bipolar disorder Exercise-induced asthma Hyperlipemia HTN (hypertension) Neuropathy Obesity Diabetes Psoriatic arthritis Surgical History History of bladder surgery H/O colonoscopy History of esophagogastroduodenoscopy (EGD) Hx of cholecystectomy History of total abdominal hysterectomy Family History Father No problems noted. Mother No problems noted. Sister No problems noted. Sister No problems noted. Son Mental health disorder Substance use disorder Son No problems noted. Daughter No problems noted. Social History Housing: House Alcohol intake: current Alcohol intake frequency: holidays/special occasions only Patient Tobacco Use Status: Former Tobacco user e-Cigarette/Vaping Use: Never Used service: No Current occupational status: disabled Cognitive needs: No Hearing needs: No Vision needs: Yes Questionnaire Medicare Wellness Checkup [age] 65-67 What gender do you identify with?: female During the past 4 weeks, how much have you been bothered by emotional problems such as feeling anxious, depressed, irritable, sad or downhearted, and blue?: slightly During the past 4 weeks, has your physical & emotional health limited your social activities with family, friends, neighbors, or groups?: not at all During the past 4 weeks, how much bodily pain have you generally had?: mild pain During the past 4 weeks, was someone available to help you if you needed & wanted help?: yes, as much as I wanted During the past 4 weeks, what was the hardest physical activity you could do for at least 2 minutes?: moderate Can you get to places out of walking distance without help? (For eg., can you travel alone on buses, taxis or drive your car?): Yes Can you go shopping for groceries or clothes without someone's help?: Yes Can you prepare your own meals?: Yes Can you do your housework without help?: Yes Because of any health problems, do you need the help of another person with your personal care needs such as eating, bathing, dressing or getting around the house?: No Can you handle your own money without help?: Yes During the past 4 weeks, how would you rate your health in general?: very good During the past 4 weeks how have things been going for you?: pretty well Are you having difficulties driving your car?: no Do you always fasten your seat belt when you are in a car?: yes, usually During past 4 weeks, have you been bothered by the following: never: Falling or dizzy when standing up, Sexual problems?, Trouble eating well?, Teeth or denture problems? and Problems using the telephone? and seldom: Tiredness or fatigue? Have you fallen 2 or more times in the past year?: No Are you afraid of falling?: No Are you a smoker?: no During the past 4 weeks, how many drinks of wine, beer, or other alcoholic beverages did you have?: no alcohol at all Do you exercise for about 20 minutes 3 or more times a week?: yes, some of the time Have you been given information to help with the following?: no: Hazards in your house that might hurt you? and no: Keeping track of your medications? How often do you have trouble taking medicines the way you have been told to take them?: I always take medicine as prescribed How confident are you that you can control & manage most of your health problems?: very confident What is your race?: White Mini Mental State Exam (MMSE) Orientation What is the (year) (season) (date) (day) (month)?: year, season, date, day and month Where are we (state) (county) (town or city) (hospital) (floor)?: state, county, town or city, hospital/clinic and floor Registration Name of 3 unrelated objects clearly and slowly, then ask patient to repeat all 3 of them. (1st repeat determines score. Make sure they can repeat all three): object 1, object 2 and object 3 Attention & Calculation (CHOOSE ONE) Spell WORLD backwards (DLROW): 5 letters Recall Ask patient to repeat the 3 items from question #3.: object 1, object 2 and object 3 Language Show patient a wristwatch & ask what it is. Repeat for pencil.: watch and pencil Ask the patient to repeat the phrase 'No ifs, ands, or buts' after you.: correct Ask the patient to 'take a piece of paper with their right hand' 'fold paper in half' 'place paper on floor': take paper in right hand, fold paper in half and place paper on floor Print the sentence 'CLOSE YOUR EYES' on a piece. If patient actually closes eyes then score.: followed written direction Give patient a blank piece of paper & ask to write a sentence. Score if it contains a noun & verb.: sentence contains subject and verb Score Score: 29 Activity of Daily Living Bathing - sponge bath, tub bath or shower: receives no assistance (gets in/out by self, if usual bathing means Dressing - getting clothes from closets & drawers, including inner/outer garments & fasteners.: gets clothes & gets completely dressed without help Toileting - going to the 'toilet room' for urine/bowel elimination & cleaning self/arranging clothes: goes to toilet room, cleans self, arranges clothes without help Transfer: moves in & out of bed and chair without help (may use support object) Continence: controls urination/bowel movements completely by self Feeding: feeds self without help Total Score: 0 Information obtained from: patient Using telephone: independent Traveling: independent Shopping: independent Preparing meals: independent Housework: independent Taking medicine: independent Managing money: independent PHQ-9 Over the last 2 weeks, how often have you been bothered by any of the following problems? 1. Little interest or pleasure in doing things: several days 2. Feeling down, depressed, or hopeless: several days 3. Trouble falling or staying asleep, or sleeping too much: not at all 4. Feeling tired or having little energy: not at all 5. Poor appetite or overeating: not at all 6. Feeling bad about yourself - or that you are a failure or have let yourself or your family down: not at all 7. Trouble concentrating on things, such as reading the newspaper or watching television: not at all 8. Moving or speaking so slowly that other people could have noticed. Or the opposite - being so fidgety or restless that you have been moving around a lot more than usual: not at all 9. Thoughts that you would be better off or of hurting yourself in some way: not at all Total score: 2 Depression Screening Interpretation: Negative Depression Screening Done: Yes Source: Developed by Drs. Chemo Sterling, Kathryn Carey, Santi Watson and colleagues, with an educational miguel from [employer]. Review of Systems Const All systems reviewed & are unremarkable except as noted in HPI and below Reports no additional complaints Eyes Reports no additional complaints ENT Reports no additional complaints Card Reports no additional complaints Resp Reports no additional complaints GI Reports no additional complaints Reports no additional complaints Physical Exam Vital Signs: Last Vital Signs Temp 98.0 F 03/16/24 09:44 Pulse 87 03/16/24 09:44 Resp 20 03/16/24 09:44 BP 118/80 03/16/24 09:44 Pulse Ox 99 03/16/24 09:44 Oxygen Delivery Method Room Air 03/16/24 09:44 BMI result Body Mass Index 27.5 Const General: no acute distress HEENT Head: Yes normal to inspection Ears: hearing grossly normal bilaterally Eyes General: appearance normal, both eyes and all related structures Neck Neck: Yes no lymphadenopathy and Yes supple Resp Effort & Inspection: normal respiratory effort Auscultation: clear to auscultation bilaterally Cardio Rhythm: regular rhythm Heart sounds: S1 normal heart sound present and S2 normal heart sound present GI Inspection: Yes normal to inspection Palpation (GI): Soft to palpation Percussion: Yes normal to percussion Auscultation: normal bowel sounds Extrem General: Yes no clubbing, cyanosis or edema Assessment & Plan Assessment & Plan (1) Mammogram normal: Comment: 04/2024 [facility] Plan: Up-to-date with mammo (2) H/O colonoscopy: Comment: Dr. Terrell 2016, Dr. Kellogg 05/03 TA, recheck 5 yrs Code(s): Z98.890 - Other specified postprocedural states Plan: Follow-up with GI (3) Diabetes: Comment: A1C less than 7 Code(s): E11.9 - Type 2 diabetes mellitus without complications Plan: A1c is 5.8 continue Ozempic patient has stopped taking metformin. ADA diet regular physical activity discussed with the patient follow-up in 3 months with a fasting labs before (4) HTN (hypertension): Comment: BP less than 130/80, patient has stopped taking blood pressure medications Code(s): I10 - Essential (primary) hypertension Plan: Blood pressure stable off medications. We will continue to monitor (5) Hyperlipemia: Code(s): E78.5 - Hyperlipidemia, unspecified Plan: Patient will restart atorvastatin Orders: Orders Hemoglobin A1c 3 Months E11.9 - Type 2 diabetes mellitus without complications, E78.5 - Hyperlipidemia, unspecified, I10 - Essential (primary) hypertension Comprehensive [place]. Panel Fast 3 Months E11.9 - Type 2 diabetes mellitus without complications, E78.5 - Hyperlipidemia, unspecified, I10 - Essential (primary) hypertension Complete Blood Count Auto Diff 3 Months E11.9 - Type 2 diabetes mellitus without complications, E78.5 - Hyperlipidemia, unspecified, I10 - Essential (primary) hypertension Microalbumin, Random (w Creat) 3 Months E11.9 - Type 2 diabetes mellitus without complications, E78.5 - Hyperlipidemia, unspecified, I10 - Essential (primary) hypertension Lipid Panel 3 Months E11.9 - Type 2 diabetes mellitus without complications, E78.5 - Hyperlipidemia, unspecified, I10 - Essential (primary) hypertension TSH reflex Free T4 3 Months E11.9 - Type 2 diabetes mellitus without complications, E78.5 - Hyperlipidemia, unspecified, I10 - Essential (primary) hypertension Medications: Refilled budesonide-formoterol 80-4.5 mcg/actuation (Symbicort) 2 puffs inhalation BID 10.2 grams 3RF Discontinued olmesartan Discontinued Reason: Doctor's Order 40 mg PO DAILY 90 tabs 3RF hydrochlorothiazide Discontinued Reason: Doctor's Order 25 mg PO DAILY 90 tabs 3RF metformin Discontinued Reason: Doctor's Order 1,000 mg (2 x 500 mg) PO BID 360 tabs 3RF E11.9 - Type 2 diabetes mellitus without complications Quality Reporting (2020) Depression/Bipolar (159/160/161/177) PHQ-9: Total score: 2 Coding Level of Care Code Medicare Subsequent (G0439) Diagnoses Mammogram normal H/O colonoscopy Z98.890 Diabetes E11.9 HTN (hypertension) I10 Hyperlipemia E78.5 CPT Codes Advance Care Planning - Advance Care Planning discussion: On file, no changes ([id number]) Advance Care Planning - Time spent: 1-15 minutes, on File ([id number]) Advance Care Planning Advance Care Planning discussion: On file, no changes Forms completed: Health Care Proxy Time spent: 1-15 minutes, on File Did not discuss due to Cultural/Spiritual beliefs: Yes
== END 2024-03-16 10:39 | disposition home or self-care (01) ==
PROVIDERS: PCP Internal Medicine; Visit Provider Internal Medicine
DX: Z00.00 Encounter for general adult medical examination without abnormal findings (principal); E11.69 Type 2 diabetes mellitus with other specified complication; Z98.890 Other specified postprocedural states; I10 Essential (primary) hypertension; E78.5 Hyperlipidemia, unspecified

== ENCOUNTER 2024-06-09 11:18 | Outpatient (REF) | payer MEDICARE, MEDICAID, SELFPAY ==
[2024-06-09 13:14] LABS: MANUAL DIFF FLAG NO
--- OUTSIDE RECORDS SUMMARY | 2024-06-09 13:19 | XMS_ITS | Clinical Summary ---
Author Organization [facility] [address] [facility] Address [address] [place] [address] Phone Care Team Providers Care Support Associate Name Role Phone Almaz Billy MD Primary Care Provider [phone] Allergies Active Allergy Reactions Criticality Noted Date Comments Doxycycline 01/29/2024 Sulfa (Sulfonamide Antibiotics) 01/11 Medications metFORMIN (GLUCOPHAGE) 500 mg tablet Take 2 tablets twice a day by oral route for 90 days. 7 Active Ozempic 0.25 mg or 0.5 mg (2 mg/3 mL) injection pen ADMINISTER 0.5 MG UNDER THE SKIN EVERY WEEK 4 Active omeprazole (PriLOSEC) [address] capsule Take 1 capsule (20 mg total) by mouth 2 (two) times a day. 4 Active olmesartan (BENICAR) 40 mg tablet Take 1 tablet (40 mg total) by mouth 1 (one) time each day. Active hydroCHLOROthia zide (HYDRODIURIL) 25 mg tablet Take 1 tablet (25 mg total) by mouth 1 (one) time each day. Active gabapentin (NEURONTIN) 600 mg tablet Take 1 tablet(s) 3 times a day by oral route for 90 days. 2 Active ferrous sulfate 325 mg (65 mg elemental iron) tablet Active atorvastatin (LIPITOR) 40 mg tablet Take 1 tablet (40 mg total) by mouth 1 (one) time each day. 2 Active mqoztujy-owpk-u xibc-jdow-fxskt 100 mg-150 mg- 50 mg-150 mg capsule Take 500 mg by mouth. 3 Active acetaminophen (TylenoL) 325 mg capsule Take 2 capsules (650 mg total) by mouth. 3 Active Active Problems Problem Noted Date Diagnosed Date Adenomatous polyp of colon 01/29/2024 Irritable bowel syndrome with diarrhea 4 Psoriatic arthritis ([facility] V24, [facility] V28) 1 03/31/2023 S/P partial hysterectomy 01/29/2024 Diabetes ([facility] V24, [facility] V28) 01/29/2024 Asthma 01/29/2024 Gastroesophageal reflux disease without esophagi tis 01/29/2024 HTN (hypertension) 01/29/2024 Fibromyalgia 01/29/2024 Hyperlipidemia 01/29/2024 Fatty liver 01/29/2024 History of hernia surgery 01/29/2024 Hx of cholecystectomy 01/29/2024 Surgical History Surgery Date Site/Laterality Comments COLONOSCOPY [...] drink = 0.6 oz pur e alcohol) Comments Unknown Sex and Gender Information Value Date Recorded Sex Assigned at Female 02/24/2024 2:07 PM EST Legal Sex Female 2:03 AM EST Gender Identity Female 02/24/2024 2:07 PM EST Sexual Orientation Straight 02/24/2024 2: 07 PM EST Obstetrics History Last Filed Vital Signs Vital [...] Diabetes: Blood Sugar Control Test (HGBA1C) 01/14/2024 COVID-19 Vaccine (9 - Moderna risk season) 2024 12/20/2023, 12/22/2022, 11/17/2021, Additional history exists Diabetes: Annual GFR (Glomerular Filtration Rate) 01/28/2025 01/29/2024 Hypertension/CHF/CAD Annual BMP Blood Test 01/28/2025 01/29/2024 Osteoporosis Screening (Bone Density Screening) 05/12/2026 05/12/2016, 05/12/2016 Cervical Cancer Screening: Pap Smear 01/12/2027 01/13/2024 DTaP,Tdap,and Td Vaccines (4 - Td or Tdap) 07/05/2030 07/05/2020, 07/21/2008, 09/10/2005 Colorectal Cancer Screening: Colonoscopy 01/29/2034 01/30/2024, 10/29/2017 Pneumococcal Vaccine: 50+ Years Completed 03/09/2023, 11/27/2016, 02/11/2009, Additional history exists Pneumococcal Vaccine: Pediatrics (0 to 5 Years) and At-Risk Patients (6 to 64 Years) Completed 03/09/2023, 11/27/2016, 02/11/2009, Additional history exists RSV Immunization Adult Patients Completed 03/09/2023 Influenza Vaccine Completed 12/20/2023, , 11/17/2021, Additional [...] patient's age to complete this topic Meningococcal B Vaccine Aged Out No l onger eligible based on patient's age to complete this topic RSV Immunization Patients Under 20 months Aged Out No longer eligible based on patient's age to complete this topic Varicella Vaccines Aged Out No longer eligible based on patient's age to complete this topic Procedures Procedure Name Priority Date/Time Associated Diagnosis Comments COLONOSCOPY Routine 01/30/2024 3:48 PM EST COMPREHENSIVE METABOLIC PANEL Routine 01/29/2024 2:51 PM EST Diarrhea, unspecified type Weight loss Nausea and vomiting, unspecified vomiting type PAP SMEAR Routine 01/13/2024 12:00 AM EST Encounter for gynecological examination (general) (routine) without abnormal findings from Last 3 Months or Most Recently Relevant to Health Maintenance Results * COLONOSCOPY (01/30/2024 3:48 PM EST) Anatomical Region Laterality Modality Endoscopy us Historical Provider GI~PROCEDURE ORDERABLES F inal Result * Comprehensive metabolic panel (01/29/2024 2:51 PM EST) Sodium 141 133 - 145 mmol/L LAB CHEMISTRY METHOD 01/29/2024 5:27 PM [facility] Potassium 4.7 3.5 - 5.5 mmol/L LAB CHEMISTRY METHOD 01/29/2024 5:27 PM [facility] Chloride 106 96 - 110 mmol/L LAB CHEMISTRY METHOD 01/29/2024 5:27 PM [facility] CO2 26 21 - 32 mmol/L LAB CHEMISTRY METHOD 01/29/2024 5:27 PM [facility] Anion Gap 9 3 - 11 LAB CHEMISTRY METHOD 01/29/2024 5:27 PM [facility] Glucose 95 70 - 100 mg/dL LAB CHEMISTRY METHOD 01/29/2024 5:27 PM [facility] BUN 24 5 - 25 mg/dL LAB CHEMISTRY METHOD 01/29/2024 5:27 PM [facility] Creatinine 0.83 0.50 - 1.10 mg/dL LAB CHEMISTRY METHOD 01/29/2024 5:27 PM [facility] eGFR 78 >=60 mL/min/1. 73m2 LAB CHEMISTRY METHOD 01/29/2024 5:27 PM [facility] Comment:Calculation based on the??Chronic Kidney Disease Epidemiology Collaboration (CKD-EPI) equation refit??without adjustment for race. BUN/Creatinine Ratio 28.9 LAB CHEMISTRY METHOD 01/29/2024 5:27 PM [facility] Calcium 10.2 8.5 - 10.5 mg/dL LAB CHEMISTRY METHOD 01/29/2024 5:27 PM [facility] AST (SGOT) 13 10 - 42 unit/L LAB CHEMISTRY METHOD 01/29/2024 5:27 PM [facility] ALT (SGPT) 27 10 - 60 unit/L LAB CHEMISTRY METHOD 01/29/2024 5:27 PM [facility] Alkaline Phosphatase 58 42 - 121 unit/L LAB CHEMISTRY METHOD 01/29/2024 5:27 PM [facility] Total Protein 6.8 6.0 - 8.0 g/dL LAB CHEMISTRY METHOD 01/29/2024 5:27 PM [facility] Albumin 4.0 3.2 - 5.0 g/dL LAB CHEMISTRY METHOD 01/29/2024 5:27 PM [facility] Total Bilirubin 0.6 0.0 - 1.4 mg/dL LAB CHEMISTRY METHOD 01/29/2024 5:27 PM [facility] Blood Venous blood specimen / Unknown Venipuncture / Unknown 01/29/2024 2:51 PM EST 01/29/2024 4:16 PM EST us [facility] LAB BLOOD ORDERABLES Final R esult [facility] [address] [place] [address], [place] [phone] * Pap smear (01/13/2024 12:00 AM EST) Interpretation Negative for intraepithelial lesion or malignancy 01/16/2024 3:49 PM EST [facility] General Categorization Negative 01/16/2024 3:49 PM [facility] Specimen Adequacy Satisfactory for evaluation 01/16/2024 3:49 PM [facility] Pap Methodology Liquid Based Pap Test 01/16/2024 3:49 PM [facility] Disclaimer The Pap test is a screening test which carries an inherent false negative rate. These test results should be correlated with the patient's clinical findings and history. This Pap test was processed using an automated screening system. Technical cytopathology services provided by [facility], at [address] [place] [id number] (CLIA # [id number]/Abhishek Ayala MD, [employer] Folder And Feeder.) 01/16/2024 3:49 PM [facility] Console Pap Interpretation Reported 01/16/2024 3:49 PM [facility] Brushing/Spatula Vaginal structure / Unknown 01/13/2024 01/14/2024 9:46 AM EST Rachel Child MD LAB CYTOLOGY ORDERABLES Final Result [facility] [address] [place] [address], [place] [phone] from Last 3 Months or Most Recently Relevant to Health Maintenance Insurance MEDICARE MEDICAID - [place] Care Teams Support Associate Relationship Specialty Start Date End Date Almaz Billy MD PCP - General Internal Medicine 01/29/24
--- OUTSIDE RECORDS SUMMARY | 2024-06-09 13:19 | XMS_ITS | Encounter Summary ---
Author Organization [facility] Address [address] [place] [address] Care Team Providers Care Executive Assistant To General Counsel Name Role Phone Almaz Billy MD Primary Care Provider [phone] Encounter Details Date Type Department Care Team (Latest Contact Info) Description 01/14/2024 Lab Requisition [facility] Main Lab [address] [facility] [place] [id number] Rachel Child MD [address] [address] Encounter for gynecological examination (general) (routine) without abnormal findings Social History Tobacco Use Types Packs/Day Years Used Date Smoking Tobacco: Never Assessed Comments Unknown Sex and Gender Information Value Date Recorded Sex Assigned at Female 02/24/2024 2:07 PM EST Legal Sex Female 2:03 AM EST Gender Identity Female 02/24/2024 2:07 PM EST Sexual Orientation Straight 02/24/2024 2: 07 PM EST documented as of this encounter Plan of Treatment Not on file documented as of this encounter Procedures Procedure Name Priority Date/Time Associated Diagnosis Comments PAP SMEAR Routine 01/13/2024 12:00 AM EST Encounter for gynecological examination (general) (routine) without abnormal findings documented in this encounter Results * Pap smear (01/13/2024 12:00 AM EST) Interpretation Negative for intraepithelial lesion or malignancy 01/16/2024 3:49 PM EST [facility] General Categorization Negative 01/16/2024 3:49 PM [facility] Specimen Adequacy Satisfactory for evaluation 01/16/2024 3:49 PM [facility] Pap Methodology Liquid Based Pap Test 01/16/2024 3:49 PM [facility] Disclaimer The Pap test is a screening test which carries an inherent false negative rate. These test results should be correlated with the patient's clinical findings and history. This Pap test was processed using an automated screening system. Technical cytopathology services provided by [facility], at [address] [place] [address] (CLIA # [id number]/Abhishek Ayala MD, Property Loss Insurance Claim Adjuster.) 01/16/2024 3:49 PM [facility] Console Pap Interpretation Reported 01/16/2024 3:49 PM [facility] Brushing/Spatula Vaginal structure / Unknown 01/13/2024 01/14/2024 9:46 AM EST us Rachel Child MD LAB CYTOLOGY ORDERABLES Final Result [facility] [address] [place] [address], documented in this encounter Visit Diagnoses Diagnosis Encounter for gynecological examination (general) (routine) without abnormal findings documented in this encounter Additional Health Concerns Infection Onset Date Last Indicated Resolved Time C. Diff Rule-Out Infection 02/06/2024 02/06/2024 1 04/08/2023 10:20 AM EST Gastrointestinal Rule-Out 02/06/2024 02/06/2024 11:41 AM EST documented as of this encounter Care Teams Executive Assistant To General Counsel Relationship Specialty Start Date End Date Almaz Billy MD PCP - General Internal Medicine 01/29/24 documented as of this encounter
--- OUTSIDE RECORDS SUMMARY | 2024-06-09 13:20 | XMS_ITS | Data Portability ---
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 Plan of Treatment Reminders Order Date Submit Date Provider Last Modified By Organization Details Last Modified Time Details Appointments None recorded. Lab CBC 2016 017 [facility], [address], [place], [address], 7 18:03:08 CMP, serum or plasma 2016 017 [facility], [address] [place], [address], 7 18:03:08 erythrocyt e sedimentat ion rate by westergren method 2016 017 [facility] [employer] [facility], [address] [place], [address], 8 14:34:57 C-reactive protein, quantitati ve, serum or plasma 2016 017 [facility] [employer] [facility], [address], [place], [address], 8 14:34:57 urinalysis , complete 2016 017 [facility], [address], [place], [address], 7 19:19:41 CBC 2016 017 [facility], [address], [place], [address], 7 01:49:23 lipid panel, serum 2016 017 [facility], [address], [place], [address], 7 12:58:38 venipunctu re 2016 017 [facility], [address], [place], [address], 7 10:30:07 1,5-anhydr oglucitol, serum or plasma 2016 017 [facility], [address], [place], [address], 7 12:58:39 HbA1c (hemoglobi n A1c), blood 2016 017 [facility], [address], [place], [address], 7 20:36:42 CMP, serum or plasma 2016 017 [facility], [address], [place], [address], 7 12:58:37 iron + TIBC + ferritin, serum 2016 017 [facility], [address], [place], [address], 7 12:58:37 erythrocyt e sedimentat ion rate by westergren method 2015 017 [facility], [address], [place], [address], 7 12:28:13 CMP, serum or plasma 2015 017 [facility], [address], [place], [address], 7 12:28:14 CBC 2015 017 [facility], [address], [place], [address], 7 12:28:12 C-reactive protein, quantitati ve, serum or plasma 2015 017 [facility], [address], [place], [address], 7 12:28:14 Referral None recorded. Procedures None recorded. Surgeries None recorded. Imaging electrocar diogram 2016 017 [email or web address] In-Office Order, Internal Use Only DO Not Attach Compendium DO Not Attach Compendium, Do Not Delete/merge, [id number] 7 17:19:46 Medication Orders omeprazole 20 mg capsule,de layed release 2016 017 [facility], [address] [place], [address], 7 18:26:54 tizanidine 4 mg tablet 2016 017 INTERFACE [facility], [address] [place], [address], 7 18:26:54 hydrochlor othiazide 25 mg tablet 2016 017 [facility], [address] [place], [place], [address], 7 18:26:56 losartan 100 mg tablet 2016 017 INTERFACE [facility], [address] [place] [address], [place], [address], 7 18:26:53 atorvastat in 40 mg tablet 2016 017 INTERFACE [facility], [address], [place], [address], 7 18:26:55 metformin 500 mg tablet 2016 017 INTERFACE [facility], [address] [place] [address], [place], [address], 7 18:26:53 Onglyza 5 mg tablet 2016 017 [facility], [address] [place] [address], [place], [address], 7 18:26:52 gabapentin 600 mg tablet 2016 017 [facility], [address], [place], [address], 7 18:26:51 Cymbalta 30 mg capsule,de layed release 2016 017 INTERFACE [facility], [address] [place], [place], [address], 7 18:26:52 buspirone 15 mg tablet 2016 017 INTERFACE [facility], [address] [place] [address], [place], [address], 7 18:26:57 clonazepam 1 mg tablet 2016 017 [email or web address] [facility], [address] [place], [address], 7 18:28:48 Enbrel SureClick 50 mg/mL (1 mL) subcutaneo us pen injector 2016 017 flemoine Not available 7 18:28:48 clobetasol 0.05 % topical ointment 2016 017 INTERFACE [facility], [address] [place], [address], 7 18:26:56 clobetasol 0.05 % scalp solution 2016 017 INTERFACE [facility], [address] [place], [address], 7 18:26:51 ferrous sulfate 325 mg (65 mg iron) tablet 2016 017 INTERFACE [facility], [address] [place], [address], 7 18:26:55 Enbrel SureClick 50 mg/mL (1 mL) subcutaneo us pen injector 2016 017 ATHENAFAX [employer] [facility] [address] [address], [place], [address], 7 16:41:00 Nesina 25 mg tablet 2016 017 azeb [facility], [address] [place], [address], 7 16:16:47 Patient TargetsNo targets recorded. Patient Instructions Encounter Date Encounter Id Patient Instructions Last Modified By Organization Details Last Modified Time 11/28/2015 [id number] call us if condition worsens Not available 11/28/2015 15:26:26 Patient aware of issues with biologics such as stopping medication/callin g us if any infections arise, also must stop biologic prior to suregery ( should call us if surgery planned), aware of cancers such as lymphoma, skin cancers, etc.. Not available 11/28/2015 15:26:26 02/27/2016 [id number] anemia: care instructions MORA Not available 02/28/2016 [...] medical attention if symptoms worsen as directed. [employer] Speaking program was used in part of the creation of this note. The voice recognition is set for speed over accuracy. 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 [email or web address] Not available 02/27/2016 18:38:48 04/02/2016 [id number] Patient Instructions call us if condition worsens Not available 04/02/2016 16:13:16 Patient aware of issues with biologics such as stopping medication/callin g us if any infections arise, also must stop biologic prior to surgery ( should call us if surgery planned), aware of cancers such as lymphoma, skin cancers, etc.. Not available 04/02/2016 16:25:17 06/26/2016 [id number] Patient Instructions call us if condition worsens Not available 06/26/2016 13:58:15 Patient aware of issues with biologics such as stopping medication/callin g us if any infections arise, also must stop biologic prior to surgery ( should call us if surgery planned), aware of cancers such as lymphoma, skin cancers, etc.. Not available 06/26/2016 13:57:04 06/27/2016 [id number] starting a weigh t loss plan: care [...] medical attention if symptoms worsen as directed. [employer] Speaking program was used in part of the creation of this note. The voice recognition is set for speed over accuracy. 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 [email or web address] Not available 06/27/2016 18:28:21 Reason for Referral None Reported. Results Created Date Observation Date Name Description Value Unit Range Abnormal Flag Note LastModifiedBy Organization Detail LastModifiedTime 11/21/19 16 11/21/2015 urina lysis , dipst ick leukocytes neg negati ve Not Available In-Office Order Internal Use Only DO Not Attach Compendium DO Not Attach Compendium, Do Not Delete/merge, [id number] 11/21/2015 19:41:57 11/21/19 16 11/21/2015 urina lysis [...] DO Not Attach Compendium, Do Not Delete/merge, [id number] 11/21/2015 19:41:57 11/21/19 16 11/21/2015 urina lysis , dipst ick protein neg negati ve Not Available In-Office Order Internal Use Only DO Not Attach Compendium DO Not Attach Compendium, Do Not Delete/merge, [id number] 11/21/2015 19:41:57 11/21/19 16 11/21/2015 urina lysis , dipst ick pH 5.0 5.0-7. 0 Not Available In-Office Order Internal Use Only DO Not Attach Compendium DO Not Attach Compendium, Do Not Delete/merge, [id number] 11/21/2015 19:41:57 11/21/19 16 11/21/2015 urina lysis , dipst ick blood neg negati ve Not Available In-Office Order Internal Use Only DO Not Attach Compendium DO Not Attach Compendium, Do Not Delete/merge, [id number] 11/21/2015 19:41:57 11/21/19 16 11/21/2015 urina lysis , dipst ick specific gravity 1.030 1.020- 1.035 Not Available In-Office Order Internal Use Only DO Not Attach Compendium DO Not Attach Compendium, Do Not Delete/merge, [id number] 11/21/2015 19:41:57 11/21/19 16 11/21/2015 urina lysis , dipst ick ketone small negati ve Not Available In-Office Order Internal Use Only DO Not Attach Compendium DO Not Attach Compendium, Do Not Delete/merge, [id number] 11/21/2015 19:41:57 11/21/19 16 11/21/2015 urina lysis , dipst ick bilirubin small negati ve Not Available In-Office Order Internal Use Only DO Not Attach Compendium DO Not Attach Compendium, Do Not Delete/merge, [id number] 11/21/2015 19:41:57 11/21/19 16 11/21/2015 urina lysis , dipst ick glucose neg negati ve Not Available In-Office Order Internal Use Only DO Not Attach Compendium DO Not Attach Compendium, Do Not Delete/merge, [id number] 11/21/2015 19:41:57 11/14/19 16 11/14/2015 urina lysis , compl ete color LIGHT YELLOW Not Available [facility] [address], [place], [address], 11/14/2015 18:52:56 11/14/19 16 11/14/2015 urina lysis , compl ete appearance CLEAR clear Not Available [facility] [address], [place], [address], 11/14/2015 18:52:56 11/14/19 16 11/14/2015 urina lysis , compl ete specific gravity 1.010 Not Available [facility] [address], [place], [address], 11/14/2015 18:52:56 11/14/19 16 11/14/2015 urina lysis , compl ete pH 7.0 Not Available [facility] [address], [place], [address], 11/14/2015 18:52:56 11/14/19 16 11/14/2015 urina lysis , compl ete glucose NEGATI VE negati ve Not Available [facility] [address], [place], [address], 11/14/2015 18:52:56 11/14/19 16 11/14/2015 urina lysis , compl ete bilirubin NEGATI VE negati ve Not Available [facility] [address], [place], [address], 11/14/2015 18:52:56 11/14/19 16 11/14/2015 urina lysis , compl ete ketone NEGATI VE negati ve Not Available [facility] [address], [place], [address], 11/14/2015 18:52:56 11/14/19 16 11/14/2015 urina lysis , compl ete blood NEGATI VE negati ve Not Available [facility] [address], [place], [address], 11/14/2015 18:52:56 11/14/19 16 11/14/2015 urina lysis , compl ete protein NEGATI VE negati ve Not Available [facility] [address] [facility] [address], [place], [address], 11/14/2015 18:52:56 11/14/19 16 11/14/2015 urina lysis , compl ete urobilinogen NORMAL Not Available [facility] [address], [place], [address], 11/14/2015 18:52:56 11/14/19 16 11/14/2015 urina lysis , compl ete nitrite NEGATI VE negati ve Not Available [facility] [address], [place], [address], 11/14/2015 18:52:56 11/14/19 16 11/14/2015 urina lysis , compl ete leukocytes NEGATI VE negati ve Not Available [facility] [address] [facility] [address], [place], [address], 11/14/2015 18:52:56 11/14/19 16 11/14/2015 CBC WBC 4.4 x10^3 /uL 4.4-11 .0 Not Available [facility] [address] [place], [place] [address]y [address], [place], [address], 11/14/2015 19:40:45 11/14/19 16 11/14/2015 CBC RBC 4.71 x10^6 /uL 4.50-5 .10 Not Available [facility] [address] [place], [place] [address]y [address] [place], [address], 11/14/2015 19:40:45 11/14/19 16 11/14/2015 CBC HGB 12.0 g/dL 12.3-1 5.3 low RESUL TS VERIF IED BY REPEA T ROOSEVELT SIS Not Available [facility] [address] [place], [place] [address] [address] [place], [address], 11/14/2015 19:40:45 11/14/19 16 11/14/2015 CBC HCT 37.5 % 35.9-4 4.6 Not Available [facility] [address] [place], [place] [address]y [address] [place], [address], 11/14/2015 19:40:45 11/14/19 16 11/14/2015 CBC MCV 79.8 fL 80.0-9 6.0 low Not Available [facility] [address] [place], [place] [address] [address] [place], [address], 11/14/2015 19:40:45 11/14/19 16 11/14/2015 CBC MCH 25.5 pg 27.5-3 3.2 low Not Available [facility] [address] [place], [place] [address]y [address], [place], [address], 11/14/2015 19:40:45 11/14/19 16 11/14/2015 CBC MCHC 31.9 g/dL 33.4-3 5.5 low Not Available [facility] [address], [place], [address], 11/14/2015 19:40:45 11/14/19 16 11/14/2015 CBC RDW 17.2 % 11.6-1 3.7 high Not Available [facility] [address], [place], [address], 11/14/2015 19:40:45 11/14/19 16 11/14/2015 CBC plt 201 x10^3 /uL 150-45 0 Not Available [facility], [place], [address], 11/14/2015 19:40:45 11/14/19 16 11/14/2015 CBC MPV 9.1 fL 7.4-10 .4 Not Available [facility], [place], [address], 11/14/2015 19:40:45 11/14/19 16 11/14/2015 CBC neut # 2.2 x10^3 /uL 1.5-7. 2 Not Available [facility], [place], [address], 11/14/2015 19:40:45 11/14/19 16 11/14/2015 CBC lymph# 1.6 x10^3 /uL 0.7-4. 9 Not Available [facility] [address], [place], [address], 11/14/2015 19:40:45 11/14/19 16 11/14/2015 CBC mono# 0.5 x10^3 /uL 0.1-0. 9 Not Available [facility] [address], [place], [address], 11/14/2015 19:40:45 11/14/19 16 11/14/2015 CBC eos # 0.0 x10^3 /uL 0.0-0. 4 Not Available [facility] [address], [place], [address], 11/14/2015 19:40:45 11/14/19 16 11/14/2015 CBC baso # 0.0 x10^3 /uL 0.0-0. 2 Not Available [facility] [address], [place], [address], 11/14/2015 19:40:45 11/14/19 16 11/14/2015 CBC neut % 50.5 % 42.2-7 5.2 Not Available [facility] [address], [place], [address], 11/14/2015 19:40:45 11/14/19 16 11/14/2015 CBC mono% 11.9 % 1.7-9. 3 high Not Available [facility] [place], [address], 11/14/2015 19:40:45 11/14/19 16 11/14/2015 CBC eos% 1.0 % 1.0-6. 0 Not Available [facility] [address], [place], [address], 11/14/2015 19:40:45 11/14/19 16 11/14/2015 CBC baso% 0.5 % 0.0-4. 0 Not Available [facility] [address], [place], [address], 11/14/2015 19:40:45 11/14/19 16 11/14/2015 CBC lymph % 36.1 % 20.5-5 1.1 Not Available [facility] [address], [place], [address], 11/14/2015 19:40:45 11/14/19 16 11/14/2015 CMP, serum or plasm a sodium 139 mmol/ L 136-14 5 Not Available [facility] [address], [place], [address], 11/14/2015 19:54:40 11/14/19 16 11/14/2015 CMP, serum or plasm a potassium 4.5 mmol/ L 3.6-5. 1 Not Available [facility] [address] [place], [place] [address]y [address], [place], [address], 11/14/2015 19:54:40 11/14/19 16 11/14/2015 CMP, serum or plasm a chloride 101 mmol/ L 98-108 Not Available [facility] [address] [facility] [address], [place], [address], 11/14/2015 19:54:40 11/14/19 16 11/14/2015 CMP, serum or plasm a carbon dioxide 34 mmol/ L 18-33 high Not Available [facility] [address] [place], [place] [address]y [address] [place], [address], 11/14/2015 19:54:40 11/14/19 16 11/14/2015 CMP, serum or plasm a glucose 79 mg/dL 65-99 Not Available [facility] [address], [place], [address], 11/14/2015 19:54:40 11/14/19 16 11/14/2015 CMP, serum or plasm a BUN 14 mg/dL 7-18 Not Available [facility] [address], [place], [address], 11/14/2015 19:54:40 11/14/19 16 11/14/2015 CMP, serum or plasm a creatinine 0.8 mg/dL 0.8-1. 3 Not Available [facility] [address] [place], [place] [address]y [address], [place], [address], 11/14/2015 19:54:40 11/14/19 16 11/14/2015 CMP, serum or plasm a BUN/creat ratio 17.5 calc 10.0-2 5.0 Not Available [facility] [address] [place], [place] [address]y [address], [place], [address], 11/14/2015 19:54:40 11/14/19 16 11/14/2015 CMP, serum or plasm a calcium 8.7 mg/dL 8.5-10 .6 Not Available [facility] [address] [place], [place] [address], [place], [address], 11/14/2015 19:54:40 11/14/19 16 11/14/2015 CMP, serum or plasm a total protein 6.9 g/dL 6.4-8. 1 Not Available [facility] [address] [place], [place] [address]y [address], [place], [address], 11/14/2015 19:54:40 11/14/19 16 11/14/2015 CMP, serum or plasm a albumin 4.1 g/dL 3.3-5. 5 Not Available [facility] [address] [place], [place] [address]y [address], [place], [address], 11/14/2015 19:54:40 11/14/19 16 11/14/2015 CMP, serum or plasm a globulin 2.8 g/dL 1.3-4. 0 Not Available [facility] [address] [place], [place] [address]y [address] [place], [address], 11/14/2015 19:54:40 11/14/19 16 11/14/2015 CMP, serum or plasm a A/G ratio 1.5 calc 1.0-2. 8 Not Available [facility] [address] [place] [address] [address] [place], [address], 11/14/2015 19:54:40 11/14/19 16 11/14/2015 CMP, serum or plasm a alk. phosphatase 69 U/L 50-128 Not Available [facility] [address] [place] [address] [address] [place], [address], 11/14/2015 19:54:40 11/14/19 16 11/14/2015 CMP, serum or plasm a ALT (SGPT) 28 U/L 10-47 Not Available [facility] [address] [place] [address] [address] [place], [address], 11/14/2015 19:54:40 11/14/19 16 11/14/2015 CMP, serum or plasm a AST (SGOT) 30 U/L 11-38 Not Available [facility] [address] [place] [address], [address], 11/14/2015 19:54:40 11/14/19 16 11/14/2015 CMP, serum or plasm a total bilirubin 0.46 mg/dL 0.20-1 .60 Not Available [facility] [address] [place] [address], [address], 11/14/2015 19:54:40 11/14/19 16 11/14/2015 CMP, serum or plasm a GFR >60.0 >=60.0 IF PATIE NT IS AFRIC AN AMERI CAN, MULTI PLY RESUL T BY 1.21 Not Available [facility] [address] [place] [address] [address] [place], [address], 11/14/2015 19:54:40 11/14/19 16 11/14/2015 lipid panel , serum cholesterol 111 mg/dL 20-180 Not Available [facility] [address] [facility] [address] [place], [address], 11/14/2015 19:54:40 11/14/19 16 11/14/2015 lipid panel , serum triglyceride s 62 mg/dL 30-150 Not Available [facility] [address] [facility] [address] [place], [address], 11/14/2015 19:54:40 11/14/19 16 11/14/2015 lipid panel , serum HDL cholesterol 42 mg/dL 23-92 Not Available [facility] [address] [facility] [address] [place], [address], 11/14/2015 19:54:40 11/14/19 16 11/14/2015 lipid panel , serum VLDL cholesterol 12 calc Not Available [facility] [address] [place] [address], [address], 11/14/2015 19:54:40 11/14/19 16 11/14/2015 lipid panel , serum HDL risk factor 2.6 calc RISK FACTO R MALE FEMAL E 1/2 AVG RISK 3.4 3.3 AVG RISK 5.0 4.0 2X AVG RISK 9.6 7.1 3X AVG RISK 24.0 11.0 Not Available [facility] [address] [place] [address] [address] [place], [address], 11/14/2015 19:54:40 11/14/19 16 11/14/2015 lipid panel , serum cholesterol/ HDL ratio 3 calc CHOL/ HDL RATIO <3 OPTIM AL 3-4 BORDE RLINE >6 HIGH RISK Not Available [facility] [address] [facility] [address] [place], [address], 11/14/2015 19:54:40 11/14/19 16 11/14/2015 lipid panel , serum non-HDL cholesterol 69 calc NON-H DL TROY STERO L <190 MG/DL LOW RISK <160 MG/DL MODER ATE RISK <130 MG/DL HIGH RISK Not Available [facility] [address], [place], [address], 11/14/2015 19:54:40 11/14/19 16 11/15/2015 CMP, serum or plasm a glucose 96 mg/dL 65-99 normal Fasti ng refer ence inter inocencio Not Available [facility] [address], [place], [address], 11/15/2015 06:13:50 11/14/19 16 11/15/2015 CMP, serum or plasm a urea nitrogen (BUN) 14 mg/dL 7-25 normal Not Available [facility] [address], [place], [address], 11/15/2015 06:13:50 11/14/19 16 11/15/2015 CMP, serum or plasm a creatinine 0.85 mg/dL 0.50-1 .05 normal For patie nts >49 years of age, the refer ence limit for Creat inine is appro ximat mark 13% highe r for peopl e ident ified as Afric an-Am hong n. Not Available [facility] [address], [place], [address], 11/15/2015 06:13:50 11/14/19 16 11/15/2015 CMP, serum or plasm a eGFR non-afr. british virgin islander 76 mL/mi n/1.7 3m2 > or = 60 normal Not Available [facility] [address], [place], [address], 11/15/2015 06:13:50 11/14/19 16 11/15/2015 CMP, serum or plasm a eGFR 88 mL/mi n/1.7 3m2 > or = 60 normal Not Available [facility] [address], [place], [address], 11/15/2015 06:13:50 11/14/19 16 11/15/2015 CMP, serum or plasm a BUN/creatini ne ratio NOT APPLIC ABLE (calc ) 6-22 Not Available [facility] [address], [place], [address], 11/15/2015 06:13:50 11/14/19 16 11/15/2015 CMP, serum or plasm a sodium 137 mmol/ L 135-14 6 normal Not Available [facility] [address], [place], [address], 11/15/2015 06:13:50 11/14/19 16 11/15/2015 CMP, serum or plasm a potassium 4.3 mmol/ L 3.5-5. 3 normal Not Available [facility] [address], [place], [address], 11/15/2015 06:13:50 11/14/19 16 11/15/2015 CMP, serum or plasm a chloride 100 mmol/ L 98-110 normal Not Available [facility] [address], [place], [address], 11/15/2015 06:13:50 11/14/19 16 11/15/2015 CMP, serum or plasm a carbon dioxide 28 mmol/ L 20-31 normal Not Available [facility] [address], [place], [address], 11/15/2015 06:13:50 11/14/19 16 11/15/2015 CMP, serum or plasm a calcium 8.7 mg/dL 8.6-10 .4 normal Not Available [facility] [address], [place], [address], 11/15/2015 06:13:50 11/14/19 16 11/15/2015 CMP, serum or plasm a protein, total 6.9 g/dL 6.1-8. 1 normal Not Available [facility] [address], [place], [address], 11/15/2015 06:13:50 11/14/19 16 11/15/2015 CMP, serum or plasm a albumin 4.2 g/dL 3.6-5. 1 normal Not Available [facility] [address], [place], [address], 11/15/2015 06:13:50 11/14/19 16 11/15/2015 CMP, serum or plasm a globulin 2.7 g/dL_ (calc ) 1.9-3. 7 normal Not Available [facility] [address], [place], [address], 11/15/2015 06:13:50 11/14/19 16 11/15/2015 CMP, serum or plasm a albumin/glob ulin ratio 1.6 (calc ) 1.0-2. 5 normal Not Available [facility] [address], [place], [address], 11/15/2015 06:13:50 11/14/19 16 11/15/2015 CMP, serum or plasm a bilirubin, total 0.4 mg/dL 0.2-1. 2 normal Not Available [facility] [facility] [address], [place], [address], 11/15/2015 06:13:50 11/14/19 16 11/15/2015 CMP, serum or plasm a alkaline phosphatase 62 U/L 33-130 normal Not Available [facility] [address], [place], [address], 11/15/2015 06:13:50 11/14/19 16 11/15/2015 CMP, serum or plasm a AST 27 U/L 10-35 normal Not Available [facility] [address], [place], [address], 11/15/2015 06:13:50 11/14/19 16 11/15/2015 CMP, serum or plasm a ALT 25 U/L 6-29 normal Not Available [facility] [address], [place], [address], 11/15/2015 06:13:50 11/14/19 16 11/15/2015 eryth rocyt e sedim entat ion rate by westkatlyn lagunasren metho d sed rate by modified lyndseyren 7 mm/h < or = 30 normal Not Available [facility] [address], [place], [address], 11/15/2015 06:13:51 11/14/19 16 11/15/2015 CBC w/ auto diff white blood cell count 4.5 thous and/u L 3.8-10 .8 normal Not Available [facility] [address], [place], [address], 11/15/2015 06:13:51 11/14/19 16 11/15/2015 CBC w/ auto diff red blood cell count 4.67 bere on/uL 3.80-5 .10 normal Not Available [facility] [address], [place], [address], 11/15/2015 06:13:51 11/14/19 16 11/15/2015 CBC w/ auto diff hemoglobin 11.8 g/dL 11.7-1 5.5 normal Not Available [facility] [address], [place], [address], 11/15/2015 06:13:51 11/14/19 16 11/15/2015 CBC w/ auto diff hematocrit 37.8 % 35.0-4 5.0 normal Not Available [facility] [address], [place], [address], 11/15/2015 06:13:51 11/14/19 16 11/15/2015 CBC w/ auto diff MCV 81.0 fL 80.0-1 00.0 normal Not Available [facility] [place] [facility] [address], [place], [address], 11/15/2015 06:13:51 11/14/19 16 11/15/2015 CBC w/ auto diff MCH 25.3 pg 27.0-3 3.0 low Not Available [facility] [place] [facility] [address], [place], [address], 11/15/2015 06:13:51 11/14/19 16 11/15/2015 CBC w/ auto diff MCHC 31.2 g/dL 32.0-3 6.0 low Not Available [facility] [place] [facility] [address], [place], [address], 11/15/2015 06:13:51 11/14/19 16 11/15/2015 CBC w/ auto diff RDW 17.2 % 11.0-1 5.0 high Not Available [facility] [place] [facility] [address], [place], [address], 11/15/2015 06:13:51 11/14/19 16 11/15/2015 CBC w/ auto diff platelet count 188 thous and/u L 140-40 0 normal Not Available [facility] [place] [facility] [address], [place], [address], 11/15/2015 06:13:51 11/14/19 16 11/15/2015 CBC w/ auto diff MPV 8.4 fL 7.5-11 .5 normal Not Available [facility] [address], [place], [address], 11/15/2015 06:13:51 11/14/19 16 11/15/2015 CBC w/ auto diff absolute neutrophils 2178 cells /uL 1500-7 800 normal Not Available [facility] [place] [facility] [address], [place], [address], 11/15/2015 06:13:51 11/14/19 16 11/15/2015 CBC w/ auto diff absolute lymphocytes 1683 cells /uL 850-39 00 normal Not Available [facility] [place] [facility] [address], [place], [address], 11/15/2015 06:13:51 11/14/19 16 11/15/2015 CBC w/ auto diff absolute monocytes 567 cells /uL 200-95 0 normal Not Available [facility] [place] [facility] [address], [place], [address], 11/15/2015 06:13:51 11/14/19 16 11/15/2015 CBC w/ auto diff absolute eosinophils 50 cells /uL 15-500 normal Not Available [facility] [place] [facility] [address], [place], [address], 11/15/2015 06:13:51 11/14/19 16 11/15/2015 CBC w/ auto diff absolute basophils 23 cells /uL 0-200 normal Not Available [facility] [place] [facility] [address], [place], [address], 11/15/2015 06:13:51 11/14/19 16 11/15/2015 CBC w/ auto diff neutrophils 48.4 % normal Not Available [facility] [place] [facility] [address], [place], [address], 11/15/2015 06:13:51 11/14/19 16 11/15/2015 CBC w/ auto diff lymphocytes 37.4 % normal Not Available [facility] [place] [facility] [address], [place], [address], 11/15/2015 06:13:51 11/14/19 16 11/15/2015 CBC w/ auto diff monocytes 12.6 % normal Not Available [facility] [place] [facility] [address], [place], [address], 11/15/2015 06:13:51 11/14/19 16 11/15/2015 CBC w/ auto diff eosinophils 1.1 % normal Not Available [facility] [place] [facility] [address], [place], [address], 11/15/2015 06:13:51 11/14/19 16 11/15/2015 CBC w/ auto diff basophils 0.5 % normal Not Available [facility] [place] [facility] [address], [place], [address], 11/15/2015 06:13:51 11/14/19 16 11/15/2015 HbA1c (hemo globi n A1c), blood estimated average glucose 142.7 mg/dL 97.0-1 40.0 high Not Available [facility] [address] [facility] [address] [place], [address], 11/15/2015 07:54:59 11/14/19 16 11/15/2015 HbA1c (hemo [...] OVASC ULAR COMPL ICATI ONS. Not Available [facility] [address] [facility] [address] [place], [address], 11/15/2015 07:54:59 11/14/19 16 11/16/2015 LDL, direc t, serum direct LDL 65 mg/dL <130 Kirk able range <100 mg/dL for patie nts with CHD or diabe sergio and <70 mg/dL for diabe tic patie nts with known heart disea se. Not Available [facility] [address] [facility] [address] [place], [address], 11/16/2015 11:48:35 11/14/19 16 11/16/2015 1,5-a nhydr [...] COMME NT: EDINSON MILAN A. Not Available [facility] [address] [place], [address], 11/16/2015 11:48:36 11/14/19 16 11/16/2015 T4, free, serum T4, free 1.0 NG/dL 0.8-1. 8 Not Available [facility] [address] [place], [place] [address]y [address] [place], [address], 11/16/2015 17:35:59 11/14/19 16 11/16/2015 TSH, serum or plasm a TSH 1.83 mIU/L 0.40-4 .50 Not Available [facility] [address] [place] [address] [address] [place], [address], 11/16/2015 17:35:59 11/14/19 16 11/16/2015 C-linnette ctive prote in, quant itati ve, serum or plasm a C-reactive protein 0.20 mg/dL <0.80 Pleas e be advis ed that patie nts tanjain g Carbo xypen icill ins may exhib it false ly decre ased C-[place] ctive Prote in level s due to an roosevelt tical inter feren ce in this assay . Not Available [facility] [address] [place] [address] [address] [place], [address], 11/16/2015 17:35:59 11/14/19 16 11/16/2015 eryth rocyt e sedim entat ion rate by august almaraz metho d sed rate by modified emerita 14 mm/h < or = 30 Not Available [facility] [address] [place] [address] [address] [place], [address], 11/16/2015 17:36:00 11/14/19 16 11/16/2015 vitam in B12 + folat e, serum or blood vitamin B12 415 pg/mL 200-11 00 Not Available [facility] [address] [place] [address] [address] [place], [address], 11/16/2015 17:36:00 11/14/19 16 11/16/2015 vitam in B12 + folat e, serum or blood folate, serum 11.7 NG/mL Refer ence Range Low: <3.4 Borde rline : 3.4-5 .4 Vanessa l: >5.4 Not Available [facility] [address] [place] [address] [address] [place], [address], 11/16/2015 17:36:00 11/14/19 16 11/16/2015 iron + TIBC + kimberley tin, serum iron, total 30 mcg/d L 45-160 low Not Available [facility] [address] [place] [address], [address], 11/16/2015 17:36:01 11/14/19 16 11/16/2015 iron + TIBC + kimberley tin, serum iron binding capacity 451 mcg/d L_(ca lc) 250-45 0 high Not Available [facility] [address] [place] [address], [address], 11/16/2015 17:36:01 11/14/19 16 11/16/2015 iron + TIBC + kimberley tin, serum % saturation 7 %_(ca lc) 11-50 low Not Available [facility] [address] [place] [address], [address], 11/16/2015 17:36:01 11/14/19 16 11/16/2015 iron + TIBC + kimberley tin, serum ferritin 18 NG/mL 10-232 Not Available [facility] [address], [place], [address], 11/16/2015 17:36:01 11/14/19 16 11/16/2015 vitam in B1 (thia mine) , blood vitamin B1 (thiamine), blood 79 nmol/ L 78-185 Vitam in suppl ement ation withi n 24 hours prior to blood draw may affec t the accur acy of the resul ts. This test was devel oped and its roosevelt tical perfo rmanc e brenton cteri stics have been deter mined by [employer] [facility], [place]. It has not been clear ed or appro deana by the U.S. Food and Drug Admin istra tion. This assay has been valid ated pursu ant to the CLIA regul ation s and is used for clini maximo purpo ses. Not Available [facility] [address], [place], [address], 11/19/2015 10:22:49 11/14/19 16 11/16/2015 vitam in B6 (pyri doxin e), plasm a vitamin B6 6.9 NG/mL 2.1-21 .7 Vitam in suppl ement ation withi n 24 hours prior to blood draw may affec t the accur acy of the resul ts. This test was devel oped and its roosevelt tical perfo rmanc e brenton cteri stics have been deter mined by [email or web address] [facility], [place]. It has not been clear ed or appro deana by the U.S. Food and Drug Admin istra tion. This assay has been valid ated pursu ant to the CLIA regul ation s and is used for clini maxmio purpo ses. Not Available [facility] [address], [place], [address], 11/19/2015 10:22:50 11/14/19 16 11/14/2015 venip unctu re venipuncture CHARGE Not Available [facility] [address], [place], [address], 11/14/2015 13:59:26 11/22/19 16 11/24/2015 cultu re, urine culture, urine, routine SEE NOTE CULTU RE, URINE , ROUTI NE MICRO NUMBE R: [id number] TEST STATU S: FINAL SPECI MEN SOURC E: URINE SPECI MEN QUALI TY: ADEQU ATE RESUL T: Multi ple organ isms prese nt, each less than 10,00 0 CFU/m L. These organ isms, commo nly found on exter nal and inter nal genit bronson, are consi dered to be colon izers . No furth er testi ng perfo rmed. Not Available [facility] [address], [place], [address], 11/24/2015 05:10:54 11/22/19 16 11/24/2015 cultu re, urine culture, urine, routine SEE NOTE CULTU RE, URINE , ROUTI NE MICRO NUMBE R: [id number] TEST STATU S: FINAL SPECI MEN SOURC E: URINE SPECI MEN QUALI TY: ADEQU ATE RESUL T: Multi ple organ isms prese nt, each less than 10,00 0 CFU/m L. These organ isms, commo nly found on exter nal and inter nal genit bronson, are consi dered to be colon izers . No furth er testi ng perfo rmed. Not Available [facility] [address], [place], [address], 11/29/2015 06:33:11 02/16/19 17 02/18/2016 CMP, serum or plasm a glucose 99 mg/dL 65-99 normal Fasti ng refer ence inter inocencio Not Available [facility] [address] [facility] [address] [place], [address], 02/18/2016 09:59:52 02/16/1902/18/2016 CMP, serum or plasm a urea nitrogen (BUN) 14 mg/dL 7-25 normal Not Available [facility] [address] [facility] [facility] [address] [place], [address], 02/18/2016 09:59:52 02/16/19 17 02/18/2016 CMP, serum or plasm a creatinine 0.88 mg/dL 0.50-1 .05 normal For patie nts >49 years of age, the refer ence limit for Creat inine is appro ximat mark 13% highe r for peopl e ident ified as Afric an-Am hong n. Not Available [facility] [address] [facility] [facility] [address] [place], [address], 02/18/2016 09:59:52 02/16/1902/18/2016 CMP, serum or plasm a eGFR non-afr. british virgin islander 73 mL/mi n/1.7 3m2 > or = 60 normal Not Available [facility] [address] [facility] [facility] [address] [place], [address], 02/18/2016 09:59:52 02/16/1902/18/2016 CMP, serum or plasm a eGFR 85 mL/mi n/1.7 3m2 > or = 60 normal Not Available [facility] [address] [facility] [address] [place], [address], 02/18/2016 09:59:52 02/16/1902/18/2016 CMP, serum or plasm a BUN/creatini ne ratio NOT APPLIC ABLE (calc ) 6-22 Not Available [facility] [address] [facility] [facility] [address] [place], [address], 02/18/2016 09:59:52 02/16/1902/18/2016 CMP, serum or plasm a sodium 140 mmol/ L 135-14 6 normal Not Available [facility] [address] [place], [place] [address]y [address], [place], [address], 02/18/2016 09:59:52 02/16/1902/18/2016 CMP, serum or plasm a potassium 3.9 mmol/ L 3.5-5. 3 normal Not Available [facility] [address] [place], [place] [address]y [address], [place], [address], 02/18/2016 09:59:52 02/16/1902/18/2016 CMP, serum or plasm a chloride 103 mmol/ L 98-110 normal Not Available [facility] [address] [place], [place] [address] [address] [place], [address], 02/18/2016 09:59:52 02/16/1902/18/2016 CMP, serum or plasm a carbon dioxide 21 mmol/ L 20-31 normal Not Available [facility] [address] [place], [place] [address] [address] [place], [address], 02/18/2016 09:59:52 02/16/1902/18/2016 CMP, serum or plasm a calcium 9.7 mg/dL 8.6-10 .4 normal Not Available [facility] [address] [place], [place] [address] [address] [place], [address], 02/18/2016 09:59:52 02/16/1902/18/2016 CMP, serum or plasm a protein, total 6.6 g/dL 6.1-8. 1 normal Not Available [facility] [address] [place], [place] [address]y [address], [place], [address], 02/18/2016 09:59:52 02/16/1902/18/2016 CMP, serum or plasm a albumin 4.0 g/dL 3.6-5. 1 normal Not Available [facility] [address] [facility] [address], [place], [address], 02/18/2016 09:59:52 02/16/1902/18/2016 CMP, serum or plasm a globulin 2.6 g/dL_ (calc ) 1.9-3. 7 normal Not Available [facility] [address] [place], [place] [address] [address] [place], [address], 02/18/2016 09:59:52 02/16/1902/18/2016 CMP, serum or plasm a albumin/glob ulin ratio 1.5 (calc ) 1.0-2. 5 normal Not Available [facility] [address] [place], [place] [address]y [address], [place], [address], 02/18/2016 09:59:52 02/16/1902/18/2016 CMP, serum or plasm a bilirubin, total 0.7 mg/dL 0.2-1. 2 normal Not Available [facility] [address] [place], [address], 02/18/2016 09:59:52 02/16/1902/18/2016 CMP, serum or plasm a alkaline phosphatase 54 U/L 33-130 normal Not Available [facility] [address] [place] [address] [address] [place], [address], 02/18/2016 09:59:52 02/16/1902/18/2016 CMP, serum or plasm a AST 22 U/L 10-35 normal Not Available [facility] [address] [place], [place] [address] [address] [place], [address], 02/18/2016 09:59:52 02/16/1902/18/2016 CMP, serum or plasm a ALT 32 U/L 6-29 high Not Available [facility] [address] [facility] [address] [place], [address], 02/18/2016 09:59:52 02/16/19 17 02/18/2016 eryth rocyt e sedim entat ion rate by august almaraz metho d sed rate by modified lyndseyren 2 mm/h < or = 30 normal Not Available [facility] [address] [place], [place] [address]y [address], [place], [address], 02/18/2016 09:59:53 02/16/19 17 02/19/2016 urina lysis , compl ete color DARK YELLOW yellow normal Not Available [facility] [address] [place], [place] [address]y [address], [place], [address], 02/19/2016 16:55:52 02/16/19 17 02/19/2016 urina lysis , compl ete appearance CLEAR clear normal Not Available [facility] [address] [place], [place] [address] [address] [place], [address], 02/19/2016 16:55:52 02/16/19 17 02/19/2016 urina lysis , compl ete specific gravity 1.018 1.001- 1.035 normal Not Available [facility] [address] [place], [place] [address]y [address], [place], [address], 02/19/2016 16:55:52 02/16/19 17 02/19/2016 urina lysis , compl ete pH 6.0 5.0-8. 0 normal Not Available [facility] [address] [place], [place] [address]y [address], [place], [address], 02/19/2016 16:55:52 02/16/19 17 02/19/2016 urina lysis , compl ete glucose NEGATI VE negati ve normal Not Available [facility] [address] [place], [place] [address]y [address], [place], [address], 02/19/2016 16:55:52 02/16/1902/19/2016 urina lysis , compl ete bilirubin NEGATI VE negati ve normal Not Available [facility] [address] [facility], [place], [address], 02/19/2016 16:55:52 02/16/19 17 02/19/2016 urina lysis , compl ete ketones NEGATI VE negati ve normal Not Available [facility] [address] [facility] [address], [place], [address], 02/19/2016 16:55:52 02/16/19 17 02/19/2016 urina lysis , compl ete occult blood NEGATI VE negati ve normal Not Available [facility] [address] [facility] [address], [place], [address], 02/19/2016 16:55:52 02/16/19 17 02/19/2016 urina lysis , compl ete protein NEGATI VE negati ve normal Not Available [facility] [address], [place], [address], 02/19/2016 16:55:52 02/16/19 17 02/19/2016 urina lysis , compl ete nitrite NEGATI VE negati ve normal Not Available [facility] [address] [place], [place] [address]y [address], [place], [address], 02/19/2016 16:55:52 02/16/19 17 02/19/2016 urina lysis , compl ete leukocyte esterase 1+ negati ve abnormal Not Available [facility] [address], [place], [address], 02/19/2016 16:55:52 02/16/19 17 02/19/2016 urina lysis , compl ete WBC 0-5 /hpf < or = 5 normal Not Available [facility] [address] [facility] [address], [place], [address], 02/19/2016 16:55:52 02/16/19 17 02/19/2016 urina lysis , compl ete RBC NONE SEEN /hpf < or = 2 normal Not Available [facility] [address] [place] [address], [address], 02/19/2016 16:55:52 02/16/19 17 02/19/2016 urina lysis , compl ete squamous epithelial cells 0-5 /hpf < or = 5 Not Available [facility] [address] [place] [address], [address], 02/19/2016 16:55:52 02/16/19 17 02/19/2016 urina lysis , compl ete bacteria NONE SEEN /hpf none seen normal Not Available [facility] [address] [place] [address], [address], 02/19/2016 16:55:52 02/16/19 17 02/19/2016 urina lysis , compl ete hyaline cast NONE SEEN /lpf none seen normal Not Available [facility] [address] [place] [address], [address], 02/19/2016 16:55:52 02/16/19 17 02/19/2016 cultu re, urine culture, urine, routine SEE NOTE CULTU RE, URINE , ROUTI NE MICRO NUMBE R: [id number] TEST STATU S: FINAL SPECI MEN SOURC E: URINE SPECI MEN QUALI TY: ADEQU ATE RESUL T: No Growt h Not Available [facility] [address] [place] [address], [address], 02/19/2016 16:55:53 02/16/19 17 02/19/2016 cultu re, urine reflexive urine culture CULTUR E INDICA LASHELL - RESULT S TO FOLLOW Not Available [facility] [address] [place] [address], [place], [address], 02/20/2016 08:18:09 02/16/1902/20/2016 HbA1c (hemo globi n [...] diabe sergio for child linda. Not Available [facility] [address] [place], [address], 02/20/2016 18:02:08 02/16/19 17 02/20/2016 CBC white blood cell count 6.6 thous and/u L 3.8-10 .8 normal Not Available [facility] [address] [place], [address], 02/20/2016 18:02:09 02/16/19 17 02/20/2016 CBC red blood cell count 5.06 bere on/uL 3.80-5 .10 normal Not Available [facility] [address] [place], [address], 02/20/2016 18:02:09 02/16/19 17 02/20/2016 CBC hemoglobin 13.9 g/dL 11.7-1 5.5 normal Not Available [facility] [address] [place], [address], 02/20/2016 18:02:02/16/19 17 02/20/2016 CBC hematocrit 43.5 % 35.0-4 5.0 normal Not Available [facility] [address], [place], [address], 02/20/2016 18:02:02/16/19 17 02/20/2016 CBC MCV 85.9 fL 80.0-1 00.0 normal Not Available [facility] [address] [facility], [place], [address], 02/20/2016 18:02:02/16/19 17 02/20/2016 CBC MCH 27.6 pg 27.0-3 3.0 normal Not Available [facility] [address] [place], [place] [address]y [address] [place], [address], 02/20/2016 18:02:02/16/19 17 02/20/2016 CBC MCHC 32.1 g/dL 32.0-3 6.0 normal Not Available [facility] [address] [place], [place] [address]y [address] [place], [address], 02/20/2016 18:02:02/16/19 17 02/20/2016 CBC RDW 16.2 % 11.0-1 5.0 high Not Available [facility] [address] [place], [place] [address]y [address], [place], [address], 02/20/2016 18:02:02/16/19 17 02/20/2016 CBC platelet count 260 thous and/u L 140-40 0 normal Not Available [facility] [address], [place], [address], 02/20/2016 18:02:02/16/19 17 02/20/2016 CBC MPV 9.1 fL 7.5-11 .5 normal Not Available [facility] [address], [place], [address], 02/20/2016 18:02:02/16/19 17 02/20/2016 CBC absolute neutrophils 3835 cells /uL 1500-7 800 normal Not Available [facility] [address], [place], [address], 02/20/2016 18:02:02/16/19 17 02/20/2016 CBC absolute lymphocytes 2138 cells /uL 850-39 00 normal Not Available [facility] [address], [place], [address], 02/20/2016 18:02:02/16/19 17 02/20/2016 CBC absolute monocytes 370 cells /uL 200-95 0 normal Not Available [facility] [address], [place], [address], 02/20/2016 18:02:02/16/19 17 02/20/2016 CBC absolute eosinophils 224 cells /uL 15-500 normal Not Available [facility] [address], [place], [address], 02/20/2016 18:02:02/16/19 17 02/20/2016 CBC absolute basophils 33 cells /uL 0-200 normal Not Available [facility] [address], [place], [address], 02/20/2016 18:02:02/16/19 17 02/20/2016 CBC neutrophils 58.1 % normal Not Avai lable [facility] [address], [place], [address], 02/20/2016 18:02:02/16/19 17 02/20/2016 CBC lymphocytes 32.4 % normal Not Avai lable [facility] [address], [place], [address], 02/20/2016 18:02:02/16/19 17 02/20/2016 CBC monocytes 5.6 % normal Not Availa ble [facility] [address], [place], [address], 02/20/2016 18:02:02/16/19 17 02/20/2016 CBC eosinophils 3.4 % normal Not Avai lable [facility] [address], [place], [address], 02/20/2016 18:02:02/16/19 17 02/20/2016 CBC basophils 0.5 % normal Not Availa ble [facility] [address] [facility] [facility] [address], [place], [address], 02/20/2016 18:02:02/16/19 17 02/20/2016 1,5-a nhydr ogluc [...] [facility] [address], [place], [address], 02/20/2016 18:02:10 02/16/19 17 02/20/2016 vitam in B12 + folat e, serum or blood vitamin B12 441 pg/mL 200-11 00 normal Not Available [facility] [address], [place], [address], 02/20/2016 18:02:10 02/16/19 17 02/20/2016 vitam in B12 + folat e, serum or blood folate, serum 10.9 NG/mL normal Refer ence Range Low: <3.4 Borde rline : 3.4-5 .4 Vanessa l: >5.4 Not Available [facility] [address] [facility] [facility] [address], [place], [address], 02/20/2016 18:02:10 02/16/19 17 02/20/2016 iron + TIBC + kimberley tin, serum iron, total 90 mcg/d L 45-160 normal Not Available [facility] [address] [facility] [address], [place], [address], 02/20/2016 18:02:10 02/16/19 17 02/20/2016 iron + TIBC + kimberley tin, serum iron binding capacity 397 mcg/d L_(ca lc) 250-45 0 normal Not Available [facility] [address] [facility] [address], [place], [address], 02/20/2016 18:02:10 02/16/19 17 02/20/2016 iron + TIBC + kimberley tin, serum % saturation 23 %_(ca lc) 11-50 normal Not Available [facility] [address] [facility] [address] [place], [address], 02/20/2016 18:02:10 02/16/1902/20/2016 iron + TIBC + kimberley tin, serum ferritin 26 NG/mL 10-232 normal Not Available [facility] [address] [facility] [address], [place], [address], 02/20/2016 18:02:10 02/16/19 17 02/20/2016 lipid panel , serum cholesterol, total 130 mg/dL 125-20 0 normal Not Available [facility] [facility] [address], [place], [address], 02/20/2016 18:02:11 02/16/1902/20/2016 lipid panel , serum HDL cholesterol 47 mg/dL > or = 46 normal Not Available [facility] [address] [facility] [address], [place], [address], 02/20/2016 18:02:11 02/16/19 17 02/20/2016 lipid panel , serum triglyceride s 92 mg/dL <150 normal Not Available [facility] [address] [facility] [address], [place], [address], 02/20/2016 18:02:11 02/16/1902/20/2016 lipid panel , serum direct LDL 70 mg/dL <130 normal Kirk able range <100 mg/dL for patie nts with CHD or diabe sergio and <70 mg/dL for diabe tic patie nts with known heart disea se. Not Available [facility] [address] [facility] [address] [facility], [place], [address], 02/20/2016 18:02:11 02/16/1902/20/2016 lipid panel , serum chol/HDLC ratio 2.8 (calc ) < or = 5.0 normal Not Available [facility] [address] [facility] [address] [place], [address], 02/20/2016 18:02:11 02/16/1902/20/2016 lipid panel , serum non HDL cholesterol 83 mg/dL _(maximo c) normal Targe t for non-H DL troy stero l is 30 mg/dL highe r than LDL troy stero l targe t. Not Available [facility] [address] [facility] [address], [place], [address], 02/20/2016 18:02:11 02/16/19 17 02/17/2016 venip unctu re results Compl ete Not Available [facility] [address], [place], [address], 02/17/2016 15:55:13 02/21/19 17 02/23/2016 fecal occul t blood , immun oassa y, stool immunoassay occult blood NEGATI VE Not Available [facility] [address] [facility] [address], [place], [address], 02/23/2016 08:43:53 02/21/19 17 02/24/2016 micro album in/cr eatin ine, ratio , 24h urine microalbumin , 24 hour ur 7 mg/24 _h <30 normal Not Available [facility] [address] [facility] [address], [place], [address], 02/24/2016 13:00:54 02/21/19 17 02/24/2016 micro album [...] ory. Not Available [facility] [address] [facility] [address], [place], [address], 02/24/2016 13:00:54 02/21/19 17 02/24/2016 micro album in/cr eatin ine, ratio , 24h urine creatinine, 24 hour urine 1.45 g/24_ h 0.63-2 .50 normal Not Available [facility] [address], [place], [address], 02/24/2016 13:00:54 03/27/19 17 03/28/2016 CBC WBC 6.1 x10^3 /uL 4.4-11 .0 Not Available [facility] [address], [place], [address], 03/28/2016 12:28:12 03/27/19 17 03/28/2016 CBC RBC 4.84 x10^6 /uL 4.50-5 .10 Not Available [facility] [address], [place], [address], 03/28/2016 12:28:12 03/27/19 17 03/28/2016 CBC HGB 13.5 g/dL 12.3-1 5.3 Not Available [facility] [address] [place] [address] [address], [place], [address], 03/28/2016 12:28:12 03/27/19 17 03/28/2016 CBC HCT 41.5 % 35.9-4 4.6 Not Available [facility] [address], [place], [address], 03/28/2016 12:28:12 03/27/19 17 03/28/2016 CBC MCV 85.6 fL 80.0-9 6.0 Not Available [facility] [address] [place] [address] [address], [place], [address], 03/28/2016 12:28:12 03/27/19 17 03/28/2016 CBC MCH 27.9 pg 27.5-3 3.2 Not Available [facility] [address], [place], [address], 03/28/2016 12:28:12 03/27/19 17 03/28/2016 CBC MCHC 32.5 g/dL 33.4-3 5.5 low Not Available [facility] [address], [place], [address], 03/28/2016 12:28:12 03/27/19 17 03/28/2016 CBC RDW 14.2 % 11.6-1 3.7 high Not Available [facility], [place], [address], 03/28/2016 12:28:12 03/27/19 17 03/28/2016 CBC plt 249 x10^3 /uL 150-45 0 Not Available [facility], [place], [address], 03/28/2016 12:28:12 03/27/19 17 03/28/2016 CBC MPV 9.6 fL 7.4-10 .4 Not Available [facility], [place], [address], 03/28/2016 12:28:12 03/27/19 17 03/28/2016 CBC neut # 3.4 x10^3 /uL 1.5-7. 2 Not Available [facility], [place], [address], 03/28/2016 12:28:12 03/27/19 17 03/28/2016 CBC lymph# 1.9 x10^3 /uL 0.7-4. 9 Not Available [facility] [address] [place] [address] [address], [place], [address], 03/28/2016 12:28:12 03/27/19 17 03/28/2016 CBC mono# 0.5 x10^3 /uL 0.1-0. 9 Not Available [facility], [place], [address], 03/28/2016 12:28:12 03/27/19 17 03/28/2016 CBC eos # 0.2 x10^3 /uL 0.0-0. 4 Not Available [facility] [address], [place], [address], 03/28/2016 12:28:12 03/27/19 17 03/28/2016 CBC baso # 0.1 x10^3 /uL 0.0-0. 2 Not Available [facility] [address], [place], [address], 03/28/2016 12:28:12 03/27/19 17 03/28/2016 CBC neut % 55.5 % 42.2-7 5.2 Not Available [facility] [address], [place], [address], 03/28/2016 12:28:12 03/27/19 17 03/28/2016 CBC mono% 7.9 % 1.7-9. 3 Not Available [facility], [place], [address], 03/28/2016 12:28:12 03/27/1903/28/2016 CBC eos% 3.8 % 1.0-6. 0 Not Available [facility], [place], [address], 03/28/2016 12:28:12 03/27/1903/28/2016 CBC baso% 0.9 % 0.0-4. 0 Not Available [facility] [address], [place], [address], 03/28/2016 12:28:12 03/27/1903/28/2016 CBC lymph % 31.9 % 20.5-5 1.1 Not Available [facility] [address], [place], [address], 03/28/2016 12:28:12 03/27/19 17 03/28/2016 eryth rocyt e sedim entat ion rate by august rgren metho d sed rate 11 mm/HR 0-20 Not Available [facility] [address] [facility] [facility] [address], [place], [address], 03/28/2016 12:28:13 03/27/19 17 03/28/2016 CMP, serum or plasm a sodium 139 mmol/ L 136-14 5 Not Available [facility] [address] [place], [place] [address]y [address], [place], [address], 03/28/2016 12:28:13 03/27/19 17 03/28/2016 CMP, serum or plasm a potassium 4.2 mmol/ L 3.6-5. 2 Not Available [facility] [address] [place], [place] [address]y [address] [place], [address], 03/28/2016 12:28:13 03/27/19 17 03/28/2016 CMP, serum or plasm a chloride 102 mmol/ L 98-108 Not Available [facility] [address] [place], [place] [address]y [address] [place], [address], 03/28/2016 12:28:13 03/27/19 17 03/28/2016 CMP, serum or plasm a carbon dioxide 29 mmol/ L 18-33 Not Available [facility] [address] [place], [place] [address]y [address] [place], [address], 03/28/2016 12:28:13 03/27/1903/28/2016 CMP, serum or plasm a glucose 119 mg/dL 65-99 high Not Available [facility] [address] [facility] [address] [place], [address], 03/28/2016 12:28:13 03/27/19 17 03/28/2016 CMP, serum or plasm a BUN 23 mg/dL 7-18 high Not Available [facility] [address] [facility] [address] [place], [address], 03/28/2016 12:28:13 03/27/19 17 03/28/2016 CMP, serum or plasm a creatinine 0.8 mg/dL 0.8-1. 3 Not Available [facility] [address] [place], [place] [address]y [address], [place], [address], 03/28/2016 12:28:13 03/27/1903/28/2016 CMP, serum or plasm a BUN/creat ratio 28.8 calc 10.0-2 5.0 high Not Available [facility] [address] [place], [place] [address]y [address], [place], [address], 03/28/2016 12:28:13 03/27/19 17 03/28/2016 CMP, serum or plasm a calcium 9.7 mg/dL 8.5-10 .6 Not Available [facility] [address] [place], [place] [address]y [address], [place], [address], 03/28/2016 12:28:13 03/27/19 17 03/28/2016 CMP, serum or plasm a total protein 6.8 g/dL 6.4-8. 1 Not Available [facility] [address] [place], [place] [address]y [address], [place], [address], 03/28/2016 12:28:13 03/27/19 17 03/28/2016 CMP, serum or plasm a albumin 4.2 g/dL 3.3-5. 5 Not Available [facility] [address] [place], [place] [address]y [address], [place], [address], 03/28/2016 12:28:13 03/27/1903/28/2016 CMP, serum or plasm a globulin 2.6 g/dL 1.3-4. 0 Not Available [facility] [address] [place], [place] [address]y [address] [place], [address], 03/28/2016 12:28:13 03/27/19 17 03/28/2016 CMP, serum or plasm a A/G ratio 1.6 calc 1.0-2. 8 Not Available [facility] [address] [place] [address], [address], 03/28/2016 12:28:13 03/27/19 17 03/28/2016 CMP, serum or plasm a alk. phosphatase 71 U/L 50-128 Not Available [facility] [address] [place] [address], [address], 03/28/2016 12:28:13 03/27/1903/28/2016 CMP, serum or plasm a ALT (SGPT) 29 U/L 10-47 Not Available [facility] [address] [place] [address], [address], 03/28/2016 12:28:13 03/27/19 17 03/28/2016 CMP, serum or plasm a AST (SGOT) 18 U/L 11-38 Not Available [facility] [address] [place] [address], [address], 03/28/2016 12:28:13 03/27/19 17 03/28/2016 CMP, serum or plasm a total bilirubin 0.52 mg/dL 0.20-1 .60 Not Available [facility] [address] [place] [address], [address], 03/28/2016 12:28:13 03/27/1903/28/2016 CMP, serum or plasm a GFR >60.0 >=60.0 IF PATIE NT IS AFRIC AN AMERI CAN, MULTI PLY RESUL T BY 1.21 Not Available [facility] [address] [place] [address] [address] [place], [address], 03/28/2016 12:28:13 03/27/1903/28/2016 C-linnette ctive prote in, quant itati ve, serum or plasm a CRP 0.08 mg/dL 0.02-1 .00 Not Available [facility] [address] [place] [address] [address] [facility], [place], [address], 03/28/2016 12:28:14 03/27/19 17 03/27/2016 venip unctu re results Compl ete Not Available [facility] [address] [place] [address], [address], 03/27/2016 13:15:17 05/19/19 17 05/18/2016 urina lysis , compl ete color YELLOW Not Available [facility] [address] [place] [address], [address], 05/18/2016 19:19:41 05/19/19 17 05/18/2016 urina lysis , compl ete appearance CLEAR clear Not Available [facility] [address] [place] [address], [address], 05/18/2016 19:19:41 05/19/19 17 05/18/2016 urina lysis , compl ete specific gravity 1.023 Not Available [facility] [address] [place] [address], [address], 05/18/2016 19:19:41 05/19/19 17 05/18/2016 urina lysis , compl ete pH 6.0 Not Available [facility] [address] [place] [address], [address], 05/18/2016 19:19:41 05/19/19 17 05/18/2016 urina lysis , compl ete glucose NEGATI VE negati ve Not Available [facility] [address] [place] [address] [address] [place], [address], 05/18/2016 19:19:41 05/19/19 17 05/18/2016 urina lysis , compl ete bilirubin NEGATI VE negati ve Not Available [facility] [address] [place] [address], [address], 05/18/2016 19:19:41 05/19/19 17 05/18/2016 urina lysis , compl ete ketone NEGATI VE negati ve Not Available [facility] [address] [place] [address], [address], 05/18/2016 19:19:41 05/19/19 17 05/18/2016 urina lysis , compl ete blood NEGATI VE negati ve Not Available [facility] [address] [place] [address], [address], 05/18/2016 19:19:41 05/19/19 17 05/18/2016 urina lysis , compl ete protein NEGATI VE negati ve Not Available [facility] [address] [place] [address], [address], 05/18/2016 19:19:41 05/19/19 17 05/18/2016 urina lysis , compl ete urobilinogen NORMAL Not Available [facility] [address] [place] [address], [address], 05/18/2016 19:19:41 05/19/19 17 05/18/2016 urina lysis , compl ete nitrite NEGATI VE negati ve Not Available [facility] [address] [place] [address], [address], 05/18/2016 19:19:41 05/19/19 17 05/18/2016 urina lysis , compl ete leukocytes NEGATI VE negati ve A cultu re will refle x when the follo wing crite marcy is met: posit percy nitri te small leuko cytes or great er or >6 WBC/h pf 4+ bacte marcy on micro scopi c exam any amoun t of yeast on micro scopi c exam. Not Available [facility] [address] [facility] [address] [place], [address], 05/18/2016 19:19:41 05/19/19 17 05/18/2016 HbA1c (hemo globi n A1c), blood estimated average glucose 125.5 mg/dL 97.0-1 40.0 Not Available [facility] [address] [facility] [address] [place], [address], 05/18/2016 20:36:41 05/19/19 17 05/18/2016 HbA1c (hemo [...] OVASC ULAR COMPL ICATI ONS. Not Available [facility] [address] [facility] [address] [place], [address], 05/18/2016 20:36:41 05/19/19 17 05/19/2016 CBC white blood cell count 6.3 thous and/u L 3.8-10 .8 normal Not Available [facility] [address] [place] [address] [address] [place], [address], 05/19/2016 01:49:23 05/19/19 17 05/19/2016 CBC red blood cell count 4.70 bere on/uL 3.80-5 .10 normal Not Available [facility] [address] [facility] [address] [place], [address], 05/19/2016 01:49:23 05/19/19 17 05/19/2016 CBC hemoglobin 13.6 g/dL 11.7-1 5.5 normal Not Available [facility] [address] [place] [address] [address] [place], [address], 05/19/2016 01:49:23 05/19/1905/19/2016 CBC hematocrit 40.2 % 35.0-4 5.0 normal Not Available [facility] [address] [place] [address] [address], [place], [address], 05/19/2016 01:49:23 05/19/1905/19/2016 CBC MCV 85.5 fL 80.0-1 00.0 normal Not Available [facility] [address] [place] [address] [address] [place], [address], 05/19/2016 01:49:23 05/19/1905/19/2016 CBC MCH 28.9 pg 27.0-3 3.0 normal Not Available [facility] [address] [place] [address] [address] [place], [address], 05/19/2016 01:49:23 05/19/1905/19/2016 CBC MCHC 33.8 g/dL 32.0-3 6.0 normal Not Available [facility] [address] [place] [address] [address] [place], [address], 05/19/2016 01:49:23 05/19/1905/19/2016 CBC RDW 13.0 % 11.0-1 5.0 normal Not Available [facility] [address] [place] [address] [address] [place], [address], 05/19/2016 01:49:23 05/19/1905/19/2016 CBC platelet count 259 thous and/u L 140-40 0 normal Not Available [facility] [address] [place] [address] [address], [place], [address], 05/19/2016 01:49:23 05/19/1905/19/2016 CBC MPV 11.2 fL 7.5-12 .5 normal Not Available [facility] [address], [place], [address], 05/19/2016 01:49:23 05/19/19 17 05/19/2016 CBC absolute neutrophils 3686 cells /uL 1500-7 800 normal Not Available [facility] [address], [place], [address], 05/19/2016 01:49:23 05/19/19 17 05/19/2016 CBC absolute lymphocytes 1922 cells /uL 850-39 00 normal Not Available [facility] [address], [place], [address], 05/19/2016 01:49:23 05/19/1905/19/2016 CBC absolute monocytes 410 cells /uL 200-95 0 normal Not Available [facility] [address] [place], [place] [address]y [address], [place], [address], 05/19/2016 01:49:23 05/19/1905/19/2016 CBC absolute eosinophils 233 cells /uL 15-500 normal Not Available [facility] [address] [place], [address], 05/19/2016 01:49:23 05/19/1905/19/2016 CBC absolute basophils 50 cells /uL 0-200 normal Not Available [facility] [address] [place], [address], 05/19/2016 01:49:23 05/19/1905/19/2016 CBC neutrophils 58.5 % normal Not Avai lable [facility] [address], [place], [address], 05/19/2016 01:49:23 05/19/19 17 05/19/2016 CBC lymphocytes 30.5 % normal Not Avai lable [facility] [address], [place], [address], 05/19/2016 01:49:23 05/19/19 17 05/19/2016 CBC monocytes 6.5 % normal Not Avail[facility] [address] [place], [address], 05/19/2016 01:49:23 05/19/1905/19/2016 CBC eosinophils 3.7 % normal Not Avai [facility]able [facility] [address] [facility] [address], [place], [address], 05/19/2016 01:49:23 05/19/1905/19/2016 CBC basophils 0.8 % normal Not Avail[facility] [address] [facility] [address] [place], [address], 05/19/2016 01:49:23 05/19/1905/21/2016 CMP, serum or plasm a glucose 100 mg/dL 65-99 high Fasti ng refer ence inter inocencio For someo ne witho ut known diabe sergio, a gluco se value betwe en 100 and 125 mg/dL is consi stent with predi abete s and shoul d be confi rmed with a follo w-up test. Not Available [facility] [address] [facility] [address] [place], [address], 05/21/2016 12:58:37 05/19/1905/21/2016 CMP, serum or plasm a urea nitrogen (BUN) 25 mg/dL 7-25 normal Not Available [facility] [address] [facility] [address], [place], [address], 05/21/2016 12:58:37 05/19/1905/21/2016 CMP, serum or plasm a creatinine 0.73 mg/dL 0.50-1 .05 normal For patie nts >49 years of age, the refer ence limit for Creat inine is appro ximat mark 13% highe r for peopl e ident ified as Afric an-Am hong n. Not Available [facility] [address] [place], [place] [address]y [address] [place], [address], 05/21/2016 12:58:37 05/19/19 17 05/21/2016 CMP, serum or plasm a eGFR non-afr. british virgin islander 91 mL/mi n/1.7 3m2 > or = 60 normal Not Available [facility] [address] [place], [place] [address]y [address] [place], [address], 05/21/2016 12:58:37 05/19/19 17 05/21/2016 CMP, serum or plasm a eGFR 106 mL/mi n/1.7 3m2 > or = 60 normal Not Available [facility] [address] [place] [address] [address] [place], [address], 05/21/2016 12:58:37 05/19/19 17 05/21/2016 CMP, serum or plasm a BUN/creatini ne ratio NOT APPLIC ABLE (calc ) 6-22 Not Available [facility] [address] [place], [place] [address]y [address] [place], [address], 05/21/2016 12:58:37 05/19/19 17 05/21/2016 CMP, serum or plasm a sodium 138 mmol/ L 135-14 6 normal Not Available [facility] [address] [place] [address] [address] [place], [address], 05/21/2016 12:58:37 05/19/19 17 05/21/2016 CMP, serum or plasm a potassium 4.3 mmol/ L 3.5-5. 3 normal Not Available [facility] [address] [place], [place] [address]y [address] [place], [address], 05/21/2016 12:58:37 05/19/19 17 05/21/2016 CMP, serum or plasm a chloride 102 mmol/ L 98-110 normal Not Available [facility] [address] [place] [address], [address], 05/21/2016 12:58:37 05/19/19 17 05/21/2016 CMP, serum or plasm a carbon dioxide 25 mmol/ L 20-31 normal Not Available [facility] [address] [place] [address], [address], 05/21/2016 12:58:37 05/19/19 17 05/21/2016 CMP, serum or plasm a calcium 9.3 mg/dL 8.6-10 .4 normal Not Available [facility] [address] [place] [address], [address], 05/21/2016 12:58:37 05/19/19 17 05/21/2016 CMP, serum or plasm a protein, total 6.8 g/dL 6.1-8. 1 normal Not Available [facility] [address] [place] [address], [address], 05/21/2016 12:58:37 05/19/19 17 05/21/2016 CMP, serum or plasm a albumin 4.2 g/dL 3.6-5. 1 normal Not Available [facility] [address] [place] [address], [address], 05/21/2016 12:58:37 05/19/19 17 05/21/2016 CMP, serum or plasm a globulin 2.6 g/dL_ (calc ) 1.9-3. 7 normal Not Available [facility] [address] [place] [address], [address], 05/21/2016 12:58:37 05/19/19 17 05/21/2016 CMP, serum or plasm a albumin/glob ulin ratio 1.6 (calc ) 1.0-2. 5 normal Not Available [facility] [address] [place] [address], [address], 05/21/2016 12:58:37 05/19/19 17 05/21/2016 CMP, serum or plasm a bilirubin, total 0.7 mg/dL 0.2-1. 2 normal Not Available [facility] [address] [place] [address] [address] [place], [address], 05/21/2016 12:58:37 05/19/19 17 05/21/2016 CMP, serum or plasm a alkaline phosphatase 50 U/L 33-130 normal Not Available [facility] [address] [place] [address], [address], 05/21/2016 12:58:37 05/19/19 17 05/21/2016 CMP, serum or plasm a AST 21 U/L 10-35 normal Not Available [facility] [address] [place] [address], [address], 05/21/2016 12:58:37 05/19/19 17 05/21/2016 CMP, serum or plasm a ALT 30 U/L 6-29 high Not Available [facility] [address] [place] [address], [address], 05/21/2016 12:58:37 05/19/1905/21/2016 iron + TIBC + kimberley tin, serum iron, total 66 mcg/d L 45-160 normal Not Available [facility] [address] [place] [address] [address] [place], [address], 05/21/2016 12:58:37 05/19/1905/21/2016 iron + TIBC + kimberley tin, serum iron binding capacity 434 mcg/d L_(ca lc) 250-45 0 normal Not Available [facility] [address] [place] [address], [address], 05/21/2016 12:58:37 05/19/19 17 05/21/2016 iron + TIBC + kimberley tin, serum % saturation 15 %_(ca lc) 11-50 normal Not Available [facility] [address] [facility] [address], [place], [address], 05/21/2016 12:58:37 05/19/19 17 05/21/2016 iron + TIBC + kimberley tin, serum ferritin 18 NG/mL 10-232 normal Not Available [facility] [address] [facility] [address], [place], [address], 05/21/2016 12:58:37 05/19/19 17 05/21/2016 lipid panel , serum cholesterol, total 126 mg/dL 125-20 0 normal Not Available [facility] [address] [facility] [address], [place], [address], 05/21/2016 12:58:38 05/19/19 17 05/21/2016 lipid panel , serum HDL cholesterol 51 mg/dL > or = 46 normal Not Available [facility] [address] [facility] [address], [place], [address], 05/21/2016 12:58:38 05/19/19 17 05/21/2016 lipid panel , serum triglyceride s 56 mg/dL <150 normal Not Available [facility] [address] [facility] [address], [place], [address], 05/21/2016 12:58:38 05/19/1905/21/2016 lipid panel , serum direct LDL 73 mg/dL <130 normal Kirk able range <100 mg/dL for patie nts with CHD or diabe sergio and <70 mg/dL for diabe tic patie nts with known heart disea se. Not Available [facility] [address] [facility] [address], [place], [address], 05/21/2016 12:58:38 05/19/1905/21/2016 lipid panel , serum chol/HDLC ratio 2.5 (calc ) < or = 5.0 normal Not Available [facility] [address] [facility] [address] [place], [address], 05/21/2016 12:58:38 05/19/19 17 05/21/2016 lipid panel , serum non HDL cholesterol 75 mg/dL _(maximo c) normal Targe t for non-H DL troy stero l is 30 mg/dL highe r than LDL troy stero l targe t. Not Available [facility] [address] [facility] [address], [place], [address], 05/21/2016 12:58:38 05/19/19 17 05/21/2016 rf (rheu matoi d facto r), serum rheumatoid factor 5 IU/mL <14 normal Not Available [facility] [address] [facility] [address] [place], [address], 05/21/2016 12:58:39 05/19/19 17 05/21/2016 1,5-a nhydr [...] asing above 180 mg/dL . Not Available [facility] [address] [facility] [address], [place], [address], 05/21/2016 12:58:39 05/19/19 17 05/18/2016 venip unctu re results Compl ete Not Available [facility] [address], [place], [address], 05/18/2016 10:30:06 06/20/19 17 06/20/2016 CBC WBC 7.7 x10^3 /uL 4.4-11 .0 Not Available [facility] [address] [place] [address] [address], [place], [address], 06/20/2016 09:58:20 06/20/1906/20/2016 CBC RBC 4.74 x10^6 /uL 4.50-5 .10 Not Available [facility] [address] [place], [place] [address]y [address], [place], [address], 06/20/2016 09:58:20 06/20/1906/20/2016 CBC HGB 13.5 g/dL 12.3-1 5.3 Not Available [facility] [address] [place], [place] [address]y [address] [place], [address], 06/20/2016 09:58:20 06/20/1906/20/2016 CBC HCT 41.8 % 35.9-4 4.6 Not Available [facility] [address] [place], [place] [address]y [address], [place], [address], 06/20/2016 09:58:20 06/20/1906/20/2016 CBC MCV 88.2 fL 80.0-9 6.0 Not Available [facility] [address] [place], [place] [address]y [address], [place], [address], 06/20/2016 09:58:20 06/20/1906/20/2016 CBC MCH 28.5 pg 27.5-3 3.2 Not Available [facility] [address] [place] [address] [address], [place], [address], 06/20/2016 09:58:20 06/20/1906/20/2016 CBC MCHC 32.4 g/dL 33.4-3 5.5 low Not Available [facility] [address], [place], [address], 06/20/2016 09:58:20 06/20/1906/20/2016 CBC RDW 13.6 % 11.6-1 5.0 Not Available [facility], [place], [address], 06/20/2016 09:58:20 06/20/1906/20/2016 CBC plt 271 x10^3 /uL 150-45 0 Not Available [facility], [place], [address], 06/20/2016 09:58:20 06/20/1906/20/2016 CBC MPV 9.6 fL 7.4-10 .4 Not Available [facility] [address] [place] [address] [address], [place], [address], 06/20/2016 09:58:20 06/20/1906/20/2016 CBC neut # 4.7 x10^3 /uL 1.5-7. 2 Not Available [facility], [place], [address], 06/20/2016 09:58:20 06/20/1906/20/2016 CBC lymph# 2.1 x10^3 /uL 0.7-4. 9 Not Available [facility], [place], [address], 06/20/2016 09:58:20 06/20/1906/20/2016 CBC mono# 0.5 x10^3 /uL 0.1-0. 9 Not Available [facility] [address], [place], [address], 06/20/2016 09:58:20 06/20/1906/20/2016 CBC eos # 0.3 x10^3 /uL 0.0-0. 4 Not Available [facility] [address], [place], [address], 06/20/2016 09:58:20 06/20/19 17 06/20/2016 CBC baso # 0.1 x10^3 /uL 0.0-0. 2 Not Available [facility] [address], [place], [address], 06/20/2016 09:58:20 06/20/1906/20/2016 CBC neut % 61.0 % 42.2-7 5.2 Not Available [facility], [place], [address], 06/20/2016 09:58:20 06/20/1906/20/2016 CBC mono% 6.0 % 1.7-9. 3 Not Available [facility] [address], [place], [address], 06/20/2016 09:58:20 06/20/1906/20/2016 CBC eos% 4.5 % 1.0-6. 0 Not Available [facility], [place], [address], 06/20/2016 09:58:20 06/20/1906/20/2016 CBC baso% 0.7 % 0.0-4. 0 Not Available [facility] [address], [place], [address], 06/20/2016 09:58:20 06/20/1906/20/2016 CBC lymph % 27.8 % 20.5-5 1.1 Not Available [facility] [address], [place], [address], 06/20/2016 09:58:20 06/20/1906/20/2016 CMP, serum or plasm a glucose 141 mg/dL 65-99 high Fasti ng refer ence inter inocencio For someo ne witho ut known diabe sergio, a gluco se value >125 mg/dL indic ates that they may have diabe sergio and this shoul d be confi rmed with a follo w-up test. Not Available [facility] [address], [place], [address], 06/20/2016 12:34:33 06/20/1906/20/2016 CMP, serum or plasm a urea nitrogen (BUN) 19 mg/dL 7-25 normal Not Available [facility] [address], [place], [address], 06/20/2016 12:34:33 06/20/1906/20/2016 CMP, serum or plasm a creatinine 0.91 mg/dL 0.50-1 .05 normal For patie nts >49 years of age, the refer ence limit for Creat inine is appro ximat mark 13% highe r for peopl e ident ified as Afric an-Am hong n. Not Available [facility] [address], [place], [address], 06/20/2016 12:34:33 06/20/1906/20/2016 CMP, serum or plasm a eGFR non-afr. british virgin islander 70 mL/mi n/1.7 3m2 > or = 60 normal Not Available [facility] [address], [place], [address], 06/20/2016 12:34:33 06/20/1906/20/2016 CMP, serum or plasm a eGFR 81 mL/mi n/1.7 3m2 > or = 60 normal Not Available [facility] [address], [place], [address], 06/20/2016 12:34:33 06/20/19 17 06/20/2016 CMP, serum or plasm a BUN/creatini ne ratio NOT APPLIC ABLE (calc ) 6-22 Not Available [facility] [address] [place] [address] [address] [place], [address], 06/20/2016 12:34:33 06/20/19 17 06/20/2016 CMP, serum or plasm a sodium 139 mmol/ L 135-14 6 normal Not Available [facility] [address] [place] [address] [address] [place], [address], 06/20/2016 12:34:33 06/20/1906/20/2016 CMP, serum or plasm a potassium 4.4 mmol/ L 3.5-5. 3 normal Not Available [facility] [address] [place] [address], [address], 06/20/2016 12:34:33 06/20/19 17 06/20/2016 CMP, serum or plasm a chloride 100 mmol/ L 98-110 normal Not Available [facility] [address] [place] [address] [address] [place], [address], 06/20/2016 12:34:33 06/20/19 17 06/20/2016 CMP, serum or plasm a carbon dioxide 33 mmol/ L 20-31 high Not Available [facility] [address] [place] [address] [address] [place], [address], 06/20/2016 12:34:33 06/20/1906/20/2016 CMP, serum or plasm a calcium 10.0 mg/dL 8.6-10 .4 normal Not Available [facility] [address] [place] [address] [address] [place], [address], 06/20/2016 12:34:33 06/20/19 17 06/20/2016 CMP, serum or plasm a protein, total 6.8 g/dL 6.1-8. 1 normal Not Available [facility] [address] [place] [address], [address], 06/20/2016 12:34:33 06/20/19 17 06/20/2016 CMP, serum or plasm a albumin 4.2 g/dL 3.6-5. 1 normal Not Available [facility] [address] [place] [address], [address], 06/20/2016 12:34:33 06/20/19 17 06/20/2016 CMP, serum or plasm a globulin 2.6 g/dL_ (calc ) 1.9-3. 7 normal Not Available [facility] [address] [place] [address], [address], 06/20/2016 12:34:33 06/20/19 17 06/20/2016 CMP, serum or plasm a albumin/glob ulin ratio 1.6 (calc ) 1.0-2. 5 normal Not Available [facility] [address] [place] [address], [address], 06/20/2016 12:34:33 06/20/1906/20/2016 CMP, serum or plasm a bilirubin, total 0.5 mg/dL 0.2-1. 2 normal Not Available [facility] [address] [place] [address], [address], 06/20/2016 12:34:33 06/20/1906/20/2016 CMP, serum or plasm a alkaline phosphatase 61 U/L 33-130 normal Not Available [facility] [address] [place] [address], [address], 06/20/2016 12:34:33 06/20/19 17 06/20/2016 CMP, serum or plasm a AST 25 U/L 10-35 normal Not Available [facility] [address] [place] [address], [place], [address], 06/20/2016 12:34:33 06/20/19 17 06/20/2016 CMP, serum or plasm a ALT 35 U/L 6-29 high Not Available [facility] [address] [place] [address] [address] [place], [address], 06/20/2016 12:34:33 06/20/19 17 06/20/2016 C-linnette ctive prote in, quant itati ve, serum or plasm a C-reactive protein <0.10 mg/dL <0.80 normal Pleas e be advis ed that patie nts takin g Carbo xypen icill ins may exhib it false ly decre ased C-Linnette ctive Prote in level s due to an roosevelt tical inter feren ce in this assay . Not Available [facility] [address] [place] [address], [address], 06/20/2016 12:34:33 06/20/19 17 06/20/2016 eryth rocyt e sedim entat ion rate by august almaraz metho d sed rate by modified lyndseyren 2 mm/h < or = 30 normal Not Available [facility] [address] [place] [address] [address] [place], [address], 06/20/2016 12:34:34 06/20/19 17 06/19/2016 venip unctu re results Compl ete Not Available [facility] [address] [place] [address] [address] [place], [address], 06/19/2016 12:21:17 04/10/19 17 04/10/2016 MAMMO , scree kevin, digit al, bilat eral No observ ation record ed. Formerly [facility] (Radiology) [address], [place], [address], 06/26/2016 14:00:06 04/10/19 17 04/10/2016 bone densi ty study No observ ation record ed. [address] [facility]) [address] [facility] [address], [place], [address], 06/26/2016 14:00:06 04/10/19 17 04/10/2016 bone densi ty study No observ ation record ed. [place] [id number] [facility] [address], [place], [address], 06/26/2016 14:00:06 04/18/19 17 04/10/2016 dual energ y x-ray absor ptiom etry No observ ation record ed. [address] [facility] ([facility]) [address] [facility] [address], [place], [address], 06/26/2016 14:00:06 06/28/19 17 elect rocar diogr am No observ ation record ed. flemoine Not Available 2016 18:03:08 Result Notes None recorded. Problems Name Problem SNOMED Code Status Onset Date Resolution Date Notes Provider Name and Address Organization Details Recorded Time Knee pain Completed 05/03/2014 Melodie willard [facility], [facility] 6 15:12:08 Multiple complicatio ns of type II diabetes mellitus Active Melodie willard [facility], [facility] 6 15:12:08 Sciatica [id number] Completed 05/03/2014 Melodie willard [facility], [facility] 6 15:12:08 Essential hypertensio n 77265578 Completed 06/27/2016 Rakesh Clark Jr, MD [address] [address], [place], [address] [place] [address] Physician Group, [facility] 7 14:59:25 Obesity 456970810 Active Melodie willard [facility], [facility] 6 15:12:08 Sinusitis 94552205 Completed 05/03/2014 Melodie willard [facility], [facility] 6 15:12:08 Tendinitis of finger 706430367 Completed [facility]/03/2014 [facility] 6 15:12:08 Cellulitis of lower limb 437262381 Completed 05/03/2014 [facility] 6 15:12:08 Herpes zoster 2328271 Completed 05/03/2014 Melodie Carey montse, [facility], [facility] 6 15:12:08 Generalized arthritis 828049384 [facility] 6 15:12:08 Psoriasis with arthropathy Active Rupesh hunter, [facility] [address], [place], [address] [place] [address] 6 15:41:47 Dermatophyt osis 23675537 Completed 05/03/2014 [facility] 6 15:12:08 Depressive disorder 03059535 Active [facility] 6 15:12:08 Hyperlipide murphy 24630624 [facility] 6 15:12:08 Bursitis of shoulder 972896409 Completed 06/27/2016 Rakesh Clark Jr, MD [address], [place], [address] [place] [address] 7 18:11:38 Disorder of nervous system due to type 2 diabetes mellitus 461495251 [facility] 6 15:12:08 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 15785717 Active Melodie Carey [place]se, [facility], [facility] 6 15:12:08 Menopausal symptom 73764760 [facility] 6 15:12:08 Recurrent major depressive episodes 161000503 Active Melodie willard, [facility], [facility] 6 15:12:08 Manic bipolar I disorder 54038993 Active Melodie willard, [facility], [facility] 6 15:12:08 Anemia caused by medication 376202820 Active Melodie willard, [facility], [facility] 6 15:12:08 Anemia 096114513 Active Melodie willard, [facility], [facility] 6 15:12:08 Chronic pain 40712349 Active Melodie willard, [facility], [facility] 6 15:12:08 Herniation of rectum into vagina 225474196 Active Melodie willard, [facility], [facility] 6 15:12:08 Otalgia 40093200 [facility] 6 15:12:08 Bipolar disorder 05185382 [facility] 6 15:12:08 Sciatica 14951115 [facility] 6 15:12:08 Peripheral neuropathic pain 071393509 [facility] 6 15:12:08 Iron deficiency anemia 90124912 Active 2016 Rakesh Clark Jr, MD [address], [place], [address], [facility], [facility] 7 17:04:22 Urinary incontinenc e 003329387 Active 2016 Rakesh Clark Jr, MD [address], [place], [address], [facility], [facility] 7 17:04:24 Hypertensiv e disorder 25689203 Active 2016 Rakesh Clark Jr, MD [address], [place], [address], [facility], [facility] 7 01:33:49 Gastro-esop hageal reflux disease with esophagitis 508408712 Active 2016 Rakesh Clark Jr, MD [address] [facility] [address], [place], [address] - [facility], [facility] 17:08:23 Problem Notes Documentation Provider Name and Address Organization Details Recorded Time Nut Chopper Consult Note : [facility] ? [address] [facility], [facility] [address]ICANDICEVIKYKELLY (id #[id number], : 1960) [facility] [address] [facility] [address] [place] [address] , Date: 04/02/2016RE: Kelly Drake, : 1960, PT ID #[id number] Islas MD, I would like to thank [...] and low back. 04/02/2016 - 03:40PM - [facility] History of Present IllnessRheumatology GeneralReported bypatient.Reason for [...] syringe(s) ? Refills: 1 ? [facility]) CBC W/ AUTODIFF, COMPLETE BLOOD COUNT -?To [...] medications. 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 Return to Office to see Rakesh Clark Jr, MD for BLOCK at [address] on or around 05/26/2016 Rakesh Clark Jr, MD for WELCOME TO MEDICARE [address] on 05/30/2016 at 10:15 AM JOSETTE Lowe for ESTABLISHED OV 20 at [facility] on 07/10/2016 at 02:00 PM JOSETTE Lowe [address], [place], [address], [facility] [place] [employer], [employer] 06/26/2016 14:00:07 Procedures Surgical History Date Name Laterality Status Provider Name and Address Organization Details Recorded Time 06/28/19 17 Quality Pain Screening No Pain completed Rakesh Clark Jr, MD [address], [place], [address], [facility] [place] [facility], [employer] 06/27/2016 14:51:17 06/28/19 17 Quality Functional Assessment completed Rakesh Clark Jr, MD [address], [place], [address], [facility] [place] [facility], [employer] 06/27/2016 14:51:17 06/28/19 17 Quality Medication Reviewed and Updated completed Rakseh Clark Jr, MD [address], [place], [address], [facility] [place] [facility], [employer] 06/27/2016 14:51:17 06/28/19 17 Quality (DM or HTN) BP Diastolic < 80 completed Rakesh Clark Jr, MD [address], [place], [address], [facility] [place] [facility], [facility] 06/27/2016 14:51:17 06/28/19 17 Medicare AWV Questionnaire completed Rakesh Clark Jr, MD [address], [place], [address], [facility], [facility] 06/27/2016 14:51:16 06/28/19 17 Quality Tobacco Non- User completed Rakesh Clark Jr, MD [address], [place], [address], [facility], [facility] 06/27/2016 14:51:17 06/28/19 17 Quality (DM or HTN ) BP Systolic < 130 completed MD Wale Cobb Jr[address], [place], [address], [facility], [facility] 06/27/2016 14:51:17 06/28/19 17 Quality Fall Risk Assessment Low Risk completed Rakesh Clark Jr, MD [address], [place], [address], [facility], [facility] 06/27/2016 14:51:17 06/28/19 17 Quality BMI with follow up completed Rakesh Clark Jr, MD [address], [place], [address], [facility], [facility] 06/27/2016 14:51:17 06/28/19 17 Quality Advanced Care Planning completed Rakesh Clark Jr, MD [address], [place], [address], [facility], [facility] 06/27/2016 14:51:17 06/28/19 17 Quality Incontinence Screening completed Rakesh Clark Jr, MD [address], [place], [address], [facility], [facility] 06/27/2016 14:51:17 06/28/19 17 Diabetic Foot Exam completed Rakesh Clark Jr, MD [address], [place], [address], [facility], [facility] 06/27/2016 18:35:46 06/27/19 17 Quality Pain Screening No Pain cancelled Jovaniprimo Santy [facility], [facility] 06/26/2016 12:03:03 06/27/19 17 Quality Functional Assessment cancelled Remediosnorberto Foxanayeli [facility], [facility] 06/26/2016 11:57:35 06/27/19 17 Quality Medication Reviewed and Updated cancelled Remediosnorberto Mendez [facility], [facility] 06/26/2016 11:57:34 06/27/19 17 Quality (DM or HTN) BP Diastolic < 80 cancelled Remedios Mendez [facility], [facility] 06/26/2016 11:57:35 06/27/19 17 Medicare AWV Questionnaire cancelled [facility], [facility] 06/26/2016 12:01:38 06/27/19 17 Quality Tobacco Non- User cancelled Remedioseber Mendez [facility], [facility] 06/26/2016 11:57:34 06/27/19 17 Quality (DM or HTN ) BP Systolic < 130 cancelled Remedios Mendez [facility], [facility] 06/26/2016 11:57:35 06/27/19 17 Quality Fall Risk Assessment Low Risk cancelled Remediosnorberto Mendez [facility], [facility] 06/26/2016 11:57:35 06/27/19 17 Quality BMI with follow up cancelled Remediosnorberto Mendez [facility], [facility] 06/26/2016 11:57:35 06/27/19 17 Quality Advanced Care Planning cancelled Remediosnorberto Mendez [facility], [facility] 06/26/2016 11:57:35 06/27/19 17 Quality Incontinence Screening cancelled Remediosnorberto Mendez [facility], [facility] 06/26/2016 11:57:35 05/13/19 17 Vrt fracture assmt via dxa completed Lucretia Madera [facility], [facility] 06/26/2016 12:02:16 05/13/19 17 Bone mineral single photon completed Remedios Mendez [facility], [facility] 06/27/2016 16:04:30 05/13/19 17 Mammogram Screening completed Remedios Mendez [facility], [facility] 06/27/2016 16:04:51 05/13/19 17 Other completed Remedios Mendez [facility], [facility] 06/27/2016 16:05:33 12/03/19 15 Diabetic Foot Exam completed Rakesh Clark Jr, MD [address], [place], [address], [facility] 12/05/2014 20:40:00 05/07/19 14 TCM Initial completed Lorena Bazzi [facility] 05/06/2013 10:27:34 04/02/19 14 Aspiration Major Joint/Bursa completed Rakesh Clark Jr, MD [address], [place], [address], [facility], [facility] 04/05/2013 16:22:28 03/10/19 14 Aspiration Major Joint/Bursa completed Rakesh Clark Jr, MD [address], [place], [address], [facility], [facility] 03/10/2013 17:45:44 03/03/19 14 Aspiration Major Joint/Bursa completed Rakesh Clark Jr, MD [address], [place], [address], [facility], [facility] 03/03/2013 17:51:17 02/16/19 14 Aspiration Major Joint/Bursa completed Rakesh Clark Jr, MD [address], [place], [address], [facility], [facility] 02/16/2013 17:36:32 02/11/19 11 Colonoscopy completed Lucretia Madera [facility], [facility] 06/26/2016 12:02:02 02/11/19 07 Colonoscopy completed Gill Marie [facility], [facility] 02/16/2013 14:55:02 02/11/19 03 Hernia repair completed Gill Marie [facility], [facility] 02/16/2013 15:22:58 02/11/18 89 Cholecystectomy completed Gill Marie [facility], [facility] 02/16/2013 15:22:58 02/11/18 89 [facility] [facility], [facility] 02/16/2013 15:22:58 [facility], [facility] 02/16/2013 15:23:18 COLONOSCOPY (SURG) completed Faraz Overton [facility], [facility] 07/23/2013 19:11:11 Imaging Results Imaging Date Name Status LastModified by Organization Details LastModified Time 04/10/2016 MAMMO, screening, digital, bilateral completed [address] [facility] [address] [facility] [address], [place], [address], 06/26/2016 14:00:06 04/10/2016 bone density study completed [address] [facility] [address] [facility] [address], [place], [address], 06/26/2016 14:00:06 04/10/2016 bone density study [place] [address] [address], [place], [address], 06/26/2016 14:00:06 04/10/2016 dual energy x-ray absorptiometry completed [address] Imaging ([facility]) [address] [facility] [address], [place], [address], 06/26/2016 14:00:06 06/27/2016 electrocardiogram completed Informa tion not available 06/27/2016 18:03:08 Procedure Notes None recorded. Medical Equipment None Reported. Allergies Allergen ID Allergen Name Allergen Category Reaction Reaction Severity Criticality Documentation Date Start Date Code Code System Note Provider Name and Address Organization Details Recorded Time 468366 Lorabid medicatio n anaphylax is severe Not available 02/16/2013 29314 4 RxNorm aller gy previ ously marke d as life -thre ateni ng Not Available [facility] 4 05:46:19 298298 chlorthal idone medicatio n anaphylax is severe Not available 02/16/2013 2409 RxNorm aller gy previ ously marke d as life -thre ateni ng Not Available [facility] 4 05:46:19 928530 Bactrim medicatio n anaphylax is severe Not available 02/16/2013 55032 9 RxNorm Gill Marie [facility], [facility] 4 15:02:18 296763 doxycycli ne Not available anaphylax is moderate Not available 02/16/2013 3640 RxNorm Gill Marie [facility], [facility] 4 15:02:18 868753 Norvasc medicatio n anaphylax is moderate Not available 02/16/2013 91746 RxNorm Gill Marie [facility] 4 15:02:18 812953 erythromy sai medicatio n anaphylax is moderate Not available 02/16/2013 4053 RxNorm Gill Marie [facility] 4 15:02:18 444324 prednison e medicatio n other Not available Not available 12/02/2014 8640 RxNorm Monica Cheatham [facility] 5 17:57:49 Medications Name Sig Start [...] Available Not Available Not Available Fluarix Quad 7106-2722 (PF) 60 mcg (15 mcg x 4)/0.5 mL IM syringe inject 0.5 millilit er intramus cularly active Not Available Not Available No t Available Vitals Date Recorded Body height Body weight Body mass index (BMI) Heart rate Systolic blood pressure Diastolic blood pressure Provider Name and Address Organization Details Last Updated DateTime 6 162.56 cm 897456. 42672 g 39.8 kg/m2 84 /min 122 mm[Hg] 78 mm[Hg] Melodie Carey [facility] 6 15:15:04 Date Recorded Body height Body weight Body mass index (BMI) Body temperature Heart rate Oxygen saturation Oxygen saturation in Arterial blood by Pulse oximetry Systolic blood pressure Diastolic blood pressure Provider Name and Address Organization Details Last Updated DateTime 7 162.56 cm 224223. 06 g 39.1 kg/m2 98.6 [degF] 112 /min 96 % 96 % 108 mm[Hg] 78 mm[Hg] Lucretia Madera [facility], [facility] 7 17:25:04 Date Recorded Body height Body weight Body mass index (BMI) Heart rate Oxygen saturation Oxygen saturation in Arterial blood by Pulse oximetry Systolic blood pressure Diastolic blood pressure Provider Name and Address Organization Details Last Updated DateTime 7 162.56 cm 328409. 06 g 39.1 kg/m2 88 /min 98 % 98 % 144 mm[Hg] 96 mm[Hg] Melodie Carey [facility], [facility] 7 15:57:00 Date Recorded Body height Provider Name an d Address Organization Details Last Updated DateTime 06/26/2016 162.56 cm Elis Marcello [facility], [facility] 06/26/2016 11:51:02 Date Recorded Respiratory rate Provider Name a nd Address Organization Details Last Updated DateTime 06/26/2016 18 /min Remedios Mendez [facility], [facility] 06/26/2016 11:52:36 Date Recorded Body height Body weight Body mass index (BMI) Oxygen saturation Oxygen saturation in Arterial blood by Pulse oximetry Heart rate Systolic blood pressure Diastolic blood pressure Provider Name and Address Organization Details Last Updated DateTime 7 162.56 cm 373181. 13 g 42.1 kg/m2 100 % 100 % 91 /min 156 mm[Hg] 98 mm[Hg] Melodie Carey [facility], [facility] 7 13:46:40 Date Recorded Body height Respiratory rate Body weight Body mass index (BMI) Body temperature Heart rate Oxygen saturation Oxygen saturation in Arterial blood by Pulse oximetry Systolic blood pressure Diastolic blood pressure Provider Name and Address Organization Details Last Updated DateTime 7 162.56 cm 18 /min 132618. 73 g 41.1 kg/m2 99.2 [degF] 100 /min 98 % 98 % 148 mm[Hg] 99 mm[Hg] Remedios Mendez [facility], [facility] 7 16:15:42 Social History Question Answer Notes LastModified by Organizat ion Details LastModified Time Tobacco Smoking Status Former Smoker Gill willard [facility], [facility] 02/16/2013 15:16:13 Do You Have An Advance Directive? No PT WISHES TO BE RESUSCITATED BUT DOESN'T WANT HER LIFE PROLONGED IF THERE IS NO REASONABLE CHANCE OF FUNCTIONAL RECOVERY Information not available 07/15/2013 How Much Tobacco Do You Chew? None [email or web address] Information not available 04/02/2016 Which Illicit Or [...] Not available 11/28/2015 15:35:45 Father Hypertensive disorder ld2 Not available 15:35:45 Father Arthritis ld2 Not avai lable 11/28/2015 15:35:45 Sister Family history of Sister alive and well 61 ld2 Not available 15:35:45 Sister Polyp of colon ld2 Not available 15:35:45 Sister Depressive disorder Not available 15:35:45 Sister Osteoporosis Not a vailable 11/28/2015 15:35:45 Son Juvenile rheumatoid arthritis ld2 Not available 15:35:45 Notes:grandfather Brain Canc er// Medical History Condition Response Cancer (location) N Other Y Gout N Thyroid Disease N Kidney Stones N Measles/Mumps [...] 02/11/2009 completed Rakesh Clark Jr, MD [address], [place], [address], [facility], [facility] 05/18/2014 19:11:52 influenza, unspecified formulation 02/12/2012 completed Rakesh Clark Jr, MD [address], [place], [address], [facility], [facility] 05/18/2014 19:11:52 tetanus toxoid, unspecified formulation 02/11/2010 completed Rakesh Clark Jr, MD [address], [place], [address], [facility] [employer] [facility] 05/18/2014 19:11:52 influenza, unspecified formulation 02/12/2012 completed Rakesh Clark Jr, MD [address], [place], [address], [facility], [facility] 12/16/2013 09:20:00 pneumococcal, unspecified formulation 02/11/2009 completed Rakesh Clark Jr, MD [address], [place], [address], [facility], [facility] 12/16/2013 09:20:00 tetanus toxoid, unspecified formulation 02/11/2010 completed Rakesh Clark Jr, MD [address], [place], [address], [facility], [facility] 12/16/2013 09:20:00 Past Encounters Encounter ID Performer Location Encounter Start Date Encounter Closed Date Diagnosis/Indication Diagnosis SNOMED-CT Code Diagnosis ICD10 Code Diagnosis Note [id number] Hortencia Lopez [address] [address] 02/16/2013 15:09:24 02/16/2013 17:41:02 Knee pain 43027526 Tenosynovi tis of the knee. Kenalog injection tolerated well. 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 Check A1c. She is unwilling to check sugars so will have to go by A1C and modify treatment accordingl y. Anticipate will have to add something such as a GLP1 or DPP4 inhibitor. GLP1 would probably be most beneficial because of her obesity Sciatica 74719558 Exacer jennifer d by knee pain. Treat knee and see how her back improves. Weight loss would also help Essential hypertension 21939388 Stable. Continue meds. 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 Discussed [...] concerning medical plan of care. Essential hypertension 94066752 Blood pressure under good control. Continue medication s. Encourage patient to continue to monitor blood pressure regularly. Knee pain 42265342 Stabl e. Controlled . Continue current therapy/me dical plan of care. Sciatica 28219572 Stable . Controlled . Continue current therapy/me dical plan of care. Obesity 658173422 Discus sed the diagnosis as well as the risks and benefits of therapy/ev aluation. Patient understand s the risks and benefits of declining or accepting treatment. Please see patient discharge instructio ns for any additional informatio n concerning medical plan of care. Make it some benefit from the Bydureon with her weight loss. [id number] Rakesh Clark Jr, MD [address] [place] [address] 03/03/2013 16:38:47 03/03/2013 17:48:26 Knee pain 77809024 Tolerated injection well. Improvemen t with initial Cortisone injection continue with Hyalgan. Discussed the diagnosis as well as the risks and benefits of therapy/ev aluation. Patient understand s the risks and benefits of declining or accepting treatment. Please see patient discharge instructio ns for any additional informatio n concerning medical plan of care. [id number] Rakesh Clark Jr, MD [address] [place] [address] 03/10/2013 16:58:01 03/11/2013 11:56:47 Knee pain 77860377 Stable. Controlled . Continue current therapy/me dical plan of care.Discu ssed the diagnosis as well as the risks and benefits of therapy/ev aluation. Patient understand s the risks and benefits of declining or accepting treatment. Please see patient discharge instructio ns for any additional informatio n concerning medical plan of care. Essential hypertension 61180990 Blood pressure under good control. Continue medication s. Encourage patient to continue to monitor blood pressure regularly. Sinusitis 38570007 [facility] medical problem uncontroll ed. Discussed the diagnosis as well as different treatment option, and the risks and benefits of therapy/ev aluation. Reviewed goals of treatment with patient. Patient understand s the risks and benefits of declining or accepting treatment. Please see patient discharge instructio ns for any additional informatio n concerning medical plan of care. Sinus headache 8134425 D iscussed the diagnosis as well as the risks and benefits of therapy/ev aluation. Patient understand s the risks and benefits of declining or accepting treatment. Please see patient discharge instructio ns for any additional informatio n concerning medical plan of care. [id number] Rakesh Clark Jr, MD [address] [address] 03/17/2013 17:00:19 03/17/2013 18:36:28 Knee pain 08460274 Swelling appears to be from precius Hyalgan injection. Postpone 1 week. No evidence of infection. Feel if I gave her this last dose today it would result in significan t joint infusion [id number] Hortencia Lopez [address] [place] [address] 04/02/2013 17:30:36 04/02/2013 19:11:46 Knee pain 70823326 Doing well tolerating injections . Improved Tendinitis of finger 026675174 Medrol dose pack. Rec she use a wrist brace bilaterall y. 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 Leg wrapped with pressure bandage. capillary refill good. tolerated. Continue antibiotic s. 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 Instructed her that she has to wear diabetic shoes. Herpes zoster 5686776 St able. [id number] Rakesh Clark Jr, MD [place] [address] 05/08/2013 08:28:37 05/08/2013 10:09:56 Cellulitis of lower limb 675495272 Improved continue antibiotic s andkeep leg elevated [id number] Daquan Doss MD [facility] [place] [id number] 05/14/2013 15:11:57 05/14/2013 16:17:29 Pain of hip region 40480813 [id number] Rakesh Clark Jr, MD [address] 8 06/10/2013 11:48:39 06/10/2013 14:43:56 Psoriasis 0078381 Discussed the diagnosis as well as the risks and benefits of therapy/ev aluation. Patient understand s the risks and benefits of declining or accepting treatment. Please see patient discharge instructio ns for any additional informatio n concerning medical plan of care. Generalized arthritis 300355181 Discussed the diagnosis as well as the risks and benefits of therapy/ev aluation. Patient understand s the risks and benefits of declining or accepting treatment. Please see patient discharge instructio ns for any additional informatio n concerning medical plan of care. Psoriasis with arthropathy 15816664 Current medical problem uncontroll ed. Discussed the [...] give some Clonazepam to help with this. [id number] Palmakatlyn Hunter [address],[facility] [address] [place] [address] 06/11/2013 13:30:44 06/11/2013 15:34:44 Screening for malignant neoplasm of colon 055813994 has h/o polyps. Doing well. No severe heart nor lung disease. Not on blood thinners. Will proceed with colonoscop y. [id number] Rakesh Clark Jr, MD [address] [place] [address] 8 07/15/2013 14:12:02 07/15/2013 16:45:49 Adult health examination 166454049 Psoriasis with arthropathy 58417599 Will start her on steroids. Will also go ahead and give her a Kenalog shot at this time. Will add Toradol for her joint discomfort . 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 She has needs to see the rheumatolo gist.Juwan se she has the anxiety with taking the steroids will add Clonazepam . 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 Encourage the patient to check her blood sugars Essential hypertension 93967772 We will change her from Diovan to Losartan for insurance coverage. 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 Discussed [...] medical plan of care. Psoriasis with arthropathy 43122368 Discussed the diagnosis as well as the risks and benefits of therapy/ev aluation. Patient understand s the risks and benefits of declining or accepting treatment. Please see patient discharge instructio ns for any additional informatio n concerning medical plan of care. Essential hypertension 06842237 Blood pressure under good control. Continue medication s. Encourage patient to continue to monitor blood pressure regularly. Dermatophytosis 04514702 Stable. Controlled . Continue current therapy/me dical plan of care. Depressive disorder 98707689 Stable. Controlled . Continue current therapy/me dical plan of care. Sciatica 66237939 Stable . Controlled . Continue current therapy/me dical plan of care. Hyperlipidemia 36429779 Discussed lipid profile. Discussed risks and benefits of therapy. Lipid not at goal based on current overall risk factors. Discussed risks and benefits of therapy. See patient instructio ns for medical plan of care. 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 Discussed [...] medical plan of care. Psoriasis with arthropathy 78113436 Stable. Controlled . Continue current therapy/me dical plan of care. Essential hypertension 61611469 Blood pressure under good control. Continue medication s. Encourage patient to continue to monitor blood pressure regularly. Depressive disorder 47285915 Discussed the diagnosis as well as the risks and benefits of therapy/ev aluation. Patient understand s the risks and benefits of declining or accepting treatment. Please see patient discharge instructio ns for any additional informatio n concerning medical plan of care. Sciatica 91148045 Stable . Controlled . Continue current therapy/me dical plan of care. Hyperlipidemia 99253085 Stable. Controlled . Continue current therapy/me dical plan of care. [id number] Sharri Myersthoara allyssa [place] [address] 10/06/2013 13:44:53 10/07/2013 16:41:23 Muscle pain 72509824 [id number] Kalpana MartinSaraAmanda [place] [address] 10/08/2013 09:20:46 10/08/2013 10:37:32 [facility] [id number] Rakesh Clark Jr, MD [address] 8 12/15/2013 17:18:09 12/15/2013 18:13:37 Sciatica 55395844 Stable. Controlled . Continue current therapy/me dical plan of care. 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 Hemoglobin A1c stable. Reviewed current glycemic goals. Continue current treatment. Psoriasis with arthropathy 11683055 improving. Stable. Controlled . Continue current therapy/me dical plan of care. Essential hypertension 19293439 Blood pressure under good control. Continue medication s. Encourage patient to continue to monitor blood pressure regularly. Depressive disorder 02743906 Stable. Controlled . Continue current therapy/me dical plan of care. Hyperlipidemia 80616019 Discussed lipid profile. Discussed risks and benefits of therapy. Lipid at goal based on current overall risk factors. Continue current therapy. Screening mammography 16377161 [id number] Rakesh Clark Jr, MD [address] 8 01/19/2014 17:30:38 01/19/2014 19:11:48 Bursitis of shoulder 229333949 Discussed the diagnosis as well as the risks and benefits of therapy/ev aluation. Patient understand s the risks and benefits of declining or accepting treatment. Please see patient discharge instructio ns for any additional informatio n concerning medical plan of care. Acute sinusitis 54516433 Discussed the diagnosis as well as the risks and benefits of therapy/ev aluation. Patient understand s the risks and benefits of declining or accepting treatment. Please see patient discharge instructio ns for any additional informatio n concerning medical plan of care. 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 Hemoglobin A1c stable. Reviewed current glycemic goals. Continue current treatment. Essential hypertension 92725208 Blood pressure not controlled . Low Salt diet encouraged consider adjustment in medical therapy. Encourage patient to monitor blood pressure regularly. Discussed risks and benefits of therapy. See patient instructio ns for medical plan of care. Depressive disorder 57868212 Stable. Controlled . Continue current therapy/me dical plan of care. Hyperlipidemia 92518682 Discussed lipid profile. Discussed risks and benefits of therapy. Lipid at goal based on current overall risk factors. Continue current therapy. Obesity 484300419 Discus sed the diagnosis as well as the risks and benefits of therapy/ev aluation. Patient understand s the risks and benefits of declining or accepting treatment. Please see patient discharge instructio ns for any additional informatio n concerning medical plan of care. Psoriasis with arthropathy 82301841 Stable. Controlled . Continue current therapy/me dical plan of care. Screening for malignant neoplasm of colon 014859567 Screening mammography 87060405 Disorder o f nervous system due to type 2 diabetes mellitus 659649948 chronic, controlled . Continue same, recheck labs as per schedule. Polyneurop athy due to diabetes mellitus 97700953 chronic, controlled . Continue same regimen. Recheck as scheduled Menopausal symptom 33559826 Recurrent major depressive episodes 341738308 chronic, improving. Continue medication regimen as noted and follow up as scheduled. 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 Controlled . Continue current therapy/me dical plan of care. Psoriasis with arthropathy 24925210 Stable. Controlled . Continue current therapy/me dical plan of care. Manic bipo lar I disorder 28745248 Current medical problem uncontroll ed. Discussed the diagnosis as well as different treatment option, and the risks and benefits of therapy/ev aluation. Reviewed goals of treatment with patient. Patient understand s the risks and benefits of declining or accepting treatment. Please see patient discharge instructio ns for any additional informatio n concerning medical plan of care. [id number] Jessie Salvador [address] [address] 12/02/2014 16:48:52 12/07/2014 12:32:24 Adult health examination 131235230 Z00.00 Discussed preventive medicine and screening strategies with patient and family. Continue Yearly evaluation and monitoring . See Out Patient Guide/Summ cricket for plan of care and to see what needed to be ordered to keep patient up to Date. Polyneurop athy due to diabetes mellitus 72841708 E11.42 Patient's sugars are not at goal. [...] of care. Increase her Metformin. Essential hypertension 67563465 I10 Blood pressure not controlled . Low Salt diet encouraged consider adjustment in medical therapy. Encourage patient to monitor blood pressure regularly. Discussed risks and benefits of therapy. See patient instructio ns for medical plan of care. Hyperlipidemia 50946041 E78.5 Discussed lipid profile. Discussed risks and benefits of therapy. Lipid at goal based on current overall risk factors. Continue current therapy. Menopausal symptom 56588 002 N95.1 Current medical problem uncontroll ed. [...] follow up and review this with her [employer]OR as well her poor sleep secondary to her menopausal symptoms are probably having some affect on her anxiety and depression as well. She is also going to follow up with her counselor. She is to continue with her antidepres kelvin medication s. Psoriasis with arthropathy 52754798 L40.50 Stable. Improving flare. Continue current therapy/me dical plan of care. Recurrent major depressive episodes 274036929 F33.1 Discussed the diagnosis as well as [...] current issues. Anemia cau sed by medication 546011548 T50.905A follow up with rheumatolo gist. Will also check for iron deficiency and B12 deficiency .Discussed the diagnosis as well as the risks and benefits of therapy/ev aluation. Patient understand s the risks and benefits of declining or accepting treatment. Please see patient discharge instructio ns for any additional informatio n concerning medical plan of care. [id number] MD EBER Nunez [address] [place] [address] 12/09/2014 08:28:06 12/09/2014 09:17:06 Psoriasis with arthropathy [id number] L40.50 Patient experienci ramón on going arthralgia s, I do not [...] sq q 14 days. Long-term drug therapy 805961626 Z79.899 Stop OTC NSAIDs, MTX. Next labs on follow up. Anemia 213073782 D64.9 microcytic , check iron studies, will call with results. [id number] Stuart Morrison MD [facility] [address] [place] [address] 03/10/2015 13:50:15 03/10/2015 14:12:34 Psoriasis with arthropathy 81527755 L40.50 No active psoriasis, no joint swelling or pain, patient able to function. Her labs are improved, anemia now better, she is off the MTX. Continue Humira sq every 14 days. Return 4 months. Long-term drug therapy 820292020 Z79.899 Tolerating medication s well, no adverse issues. Labs reviewed today. [id number] Kalpesh Kauffman MD [facility] [address] [place] [address] 05/26/2015 12:14:11 05/26/2015 15:34:46 Cough 69337255 R05 Present persistent productive coughing causing Lt TM trauma. Refers not allergic to prednisone but could cause her a manic episode of her Bipolar disorder, but she needs steroid now and refers she can control it with clonazepam . Currently no respirator y distress. Refers good tolerance to zithromax. Counseled about treatment and Breo sample given. Refer for ENT evaluation . [id number] Rakesh Clark Jr, MD [address] [place] [address] 06/28/2015 17:32:48 06/28/2015 18:49:57 Recurrent major depressive episodes 423335469 F33.1 Discussed the diagnosis as well as [...] ty of current issues. Psoriasis with arthropathy 67947831 L40.50 Current medical problem uncontroll ed. Discussed the diagnosis as well as different treatment option, and the risks and benefits of therapy/ev aluation. Reviewed goals of treatment with patient. Patient understand s the risks and benefits of declining or accepting treatment. Please see patient discharge instructio ns for any additional informatio n concerning medical plan of care. Herniation of rectum into vagina 546640835 N81.6 She reports that she saw the [...] n concerning medical plan of care. Otalgia 64162327 H92.02 She was seen in the emergency room/[facility] for left ear pain with bleeding. She [...] care. Polyneurop athy due to diabetes mellitus 52506248 E11.42 Patient's sugars are not at goal. [...] is under. Manic bipo lar I disorder 31245790 F31.10 Discussed the diagnosis as well as the risks and benefits of therapy/ev aluation. Patient understand s the risks and benefits of declining or accepting treatment. Please see patient discharge instructio ns for any additional informatio n concerning medical plan of care. 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 Patient understand s the risks and benefits of declining or accepting treatment. Please see patient discharge instructio ns for any additional informatio n concerning medical plan of care. Hyperlipidemia 76902831 E78.5 Discussed lipid profile. Discussed risks and benefits of therapy. Lipid at goal based on current overall risk factors. Continue current therapy. Essential hypertension 21769241 I10 Blood pressure not controlled . Low Salt diet encouraged consider adjustment in medical therapy. Encourage patient to monitor blood pressure regularly. Discussed risks and benefits of therapy. See patient instructio ns for medical plan of care. [id number] Stuart Morrison MD [facility] [address] [place] [address] 07/08/2015 14:06:44 07/08/2015 14:43:00 Psoriasis with arthropathy 84034485 L40.50 Since last visit she has some [...] weeks for reevaluati on. Long-term drug therapy 238371058 Z79.899 Patient is tolerating current medication s well, not reporting any adverse effects from medication s. Lab results reviewed today with patient, no issues in regards to current medication s. Next labs with follow-up appointmen bradford Armando is screening 236715145 Z11.1 [id number] Rakesh Clark Jr, MD [address] [place] [address] 08/01/2015 15:13:19 08/01/2015 17:12:48 Psoriasis with arthropathy 69962506 L40.50 Current medical problem uncontroll ed. Discussed the diagnosis as well as different treatment option, and the risks and benefits of therapy/ev aluation. Reviewed goals of treatment with patient. Patient understand s the risks and benefits of declining or accepting treatment. Please see patient discharge instructio ns for any additional informatio n concerning medical plan of care. Recurrent major depressive episodes 617289952 F33.1 Discussed the diagnosis as well as [...] issues. Polyneurop athy due to diabetes mellitus 88974484 E11.42 Patient's sugars are not at goal. [...] the Metformin. Manic bipo lar I disorder 27274120 F31.10 Discussed the diagnosis as well as the risks and benefits of therapy/ev aluation. Patient understand s the risks and benefits of declining or accepting treatment. Please see patient discharge instructio ns for any additional informatio n concerning medical plan of care. Hyperlipidemia 70783994 E78.5 Discussed lipid profile. Discussed risks and benefits of therapy. Lipid at goal based on current overall risk factors. Continue current therapy. Essential hypertension 81994350 I10 Blood pressure under good control. Continue medication s. Encourage patient to continue to monitor blood pressure regularly. [id number] JOSETTE Lowe [facility] [address] [place] [address] 08/26/2015 14:50:01 08/26/2015 15:25:29 Psoriasis with arthropathy 69530258 L40.50 Continue with Enbrel 50 mg subcutaneo us weekly, Sed Rate is 2 . Discussed with the patient to call the office with any further questions or concerns. -Return in 8 weeks for reevaluati on. Long-term drug therapy 249725737 Z79.899 Patient is tolerating current medication s well, not reporting any adverse effects from medication s. Next labs with follow-up appointmen t. [id number] Rakesh Clark Jr, MD [address] [address] 08/29/2015 14:43:51 08/29/2015 16:05:05 Polyneuropathy due to diabetes mellitus 06356319 E11.42 Patient's sugars are not at goal. [...] of Onglyza and Metformin. Psoriasis with arthropathy 83800739 L40.50 Discussed diagnosis as well as risks and benefits of therapy. Continue current therapy/me dical plan of care. Continue to follow at this time. Will check labs as appropriat e. Hyperlipidemia 42811308 E78.5 Discussed lipid profile. Lipid not at [...] therapy/me dical plan of care. Essential hypertension 74380718 I10 Stable. Controlled . Continue current therapy/me dical plan of care. Bipolar disorder 3692748 4 F31.74 Discussed diagnosis as well as risks and benefits of therapy. Continue current therapy/me dical plan of care. Continue to follow at this time. Will check labs as appropriat e. Sciatica 91097948 M54.30 Stable. Controlled . Continue current therapy/me dical plan of care. [id number] Kalpesh Kauffman MD [facility] [address] [place] [address] 10/19/2015 11:41:06 10/19/2015 13:20:33 Acute sinusitis 49485676 J01.90 Refers previous similar episodes. Already started [...] at this time. F/U Dr Clark. Cough 45608201 R05 X Rays done today present no acute findings. Cough associated to URT infection. Currently on treatment with Enbrel. [id number] Karin Wilson [facility] [address] [place] [address] 10/27/2015 15:43:16 10/31/2015 08:42:48 Cough 98921901 R05 Manic bipo lar I disorder 79803448 F31.10 Refer steroid treatment could trigger lexi but well control with short term treatment with Klonopin. Bronchitis 82821326 J40 Denies prednisone allergy but possibilit y that could trigger lexi. Patient with no improvemen t and signs of acute bronchitis . Labs done today WNL. Counseled about treatment and the need for short term low dose steroid treatment. Visit ER if symptoms worsen. F/U Dr Clark. [id number] Rakesh Clark Jr, MD [address] [place] [address] 11/07/2015 15:04:46 11/07/2015 16:37:33 Polyneuropathy due to diabetes mellitus 07199139 E11.42 She states that prior to moving to [place] she had been on 2400 mg of Gabapentin day for her neuropathy . She has tried the lower dose but her neuropathy continues to be extremely uncomforta ble. Will go ahead at this time and increase her to 600 mg 3 times a day and reviewed the workup that has been done on her in the past. Psoriasis with arthropathy 94619594 L40.50 Discussed diagnosis as well as risks and benefits of therapy. Continue current therapy/me dical plan of care. Continue to follow at this time. Will check labs as appropriat e. Hyperlipidemia 39416662 E78.5 Discussed lipid profile. Discussed risks and benefits of therapy. Lipid at goal based on current overall risk factors. Continue current therapy. Depressive disorder 4858 9004 F32.2 Part of the manifestat ion of [...] concerning medical plan of care. Essential hypertension 18331871 I10 Stable. Controlled . Continue current therapy/me dical plan of care. Bipolar disorder 7535479 4 F31.11 I feel that her bipolar [...] ly will start her on Cymbalta. Sciatica 71225962 M54.30 Stable. Controlled . Continue current therapy/me dical plan of care. Peripheral neuropathic pain 083438418 M79.2 In reviewing her chart there does [...] combinatio n of all of the above. [id number] Rakesh Clark Jr, MD [address] [address] 11/21/2015 17:48:37 11/22/2015 10:54:22 Polyneuropathy due to diabetes mellitus 96518718 E11.42 Will give her a prescripti on and trial of topical cream to see if this helps with her neuropathy .Discussed the diagnosis as well as the risks and benefits of therapy/ev aluation. Patient understand s the risks and benefits of declining or accepting treatment. Please see patient discharge instructio ns for any additional informatio n concerning medical plan of care. Bipolar disorder 7595436 4 F31.11 Stable. Controlled . Continue current therapy/me dical plan of care. Peripheral neuropathic pain 523601187 M79.2 Discussed the diagnosis as well as the risks and benefits of therapy/ev aluation. Patient understand s the risks and benefits of declining or accepting treatment. Please see patient discharge instructio ns for any additional informatio n concerning medical plan of care. Depressive disorder 4398 900 F32.2 Discussed diagnosis as well as risks and benefits of therapy. Continue current therapy/me dical plan of care. Continue to follow at this time. Will check labs as appropriat e. Psoriasis with arthropathy 93532211 L40.50 Discussed diagnosis as well as risks and benefits of therapy. Continue current therapy/me dical plan of care. Continue to follow at this time. Will check labs as appropriat e. Hyperlipidemia 75799878 E78.5 Discussed lipid profile. Discussed risks and benefits of therapy. Lipid at goal based on current overall risk factors. Continue current therapy. Essential hypertension 82811421 I10 Stable. Controlled . Continue current therapy/me dical plan of care. Sciatica 99247669 M54.30 Stable. Controlled . Continue current therapy/me dical plan of care. Urinary incontinence 165 749242 R32 Continues to be uncontroll ed. Will send the patient to see a neurologis t for further treatment. Iron defic iency anemia 85594475 D50.9 Current medical problem uncontroll ed. Discussed the diagnosis as well as different treatment option, and the risks and benefits of therapy/ev aluation. Reviewed goals of treatment with patient. Patient understand s the risks and benefits of declining or accepting treatment. Please see patient discharge instructio ns for any additional informatio n concerning medical plan of care. [id number] JOSETTE Lowe [address] [place] [address] 11/28/2015 15:04:01 11/28/2015 15:59:32 Psoriasis with arthropathy 22926391 L40.50 Continue with Enbrel 50 mg subcutaneo us weekly, Sed Rate is 7 . Discussed with the patient to call the office with any further questions or concerns. Call the office if you have any further questions or concerns. -Return in 4 months with labs Long-term drug therapy 516473467 Z79.899 Patient is tolerating current medication s well, not reporting any adverse effects from medication s. Next labs [facility] [id number] MD EBER Cobb Jr [address] [place] [address] 02/27/2016 10:00:53 02/27/2016 18:46:56 Bipolar disorder 16931189 F31.11 Stable. Controlled . Continue current therapy/me dical plan of care. Menopausal symptom 62403 002 N95.1 Current medical problem uncontroll ed. [...] follow up and review this with her [employer] as well her poor sleep secondary to her menopausal symptoms are probably having some affect on her anxiety and depression as well. She is also going to follow up with her counselor. She is to continue with her antidepres kelvin medication s. Anemia 273464367 D64.9 Discussed the diagnosis as well as the risks and benefits of therapy/ev aluation. Patient understand s the risks and benefits of declining or accepting treatment. Please see patient discharge instructio ns for any additional informatio n concerning medical plan of care. Hyperlipidemia 33115776 E78.5 Discussed lipid profile. Discussed risks and benefits of therapy. Lipid at goal based on current overall risk factors. Continue current therapy. Polyneurop athy due to diabetes mellitus 12985906 E11.42 Will change the Onglyza to a different drug because of not being covered by the insurance. Discussed the diagnosis as well as the risks and benefits of therapy/ev aluation. Patient understand s the risks and benefits of declining or accepting treatment. Please see patient discharge instructio ns for any additional informatio n concerning medical plan of care. Peripheral neuropathic pain 515207315 M79.2 Discussed the diagnosis as well as the risks and benefits of therapy/ev aluation. Patient understand s the risks and benefits of declining or accepting treatment. Please see patient discharge instructio ns for any additional informatio n concerning medical plan of care. Urinary incontinence 165 315982 R32 Discussed diagnosis as well as risks and benefits of therapy. Continue current therapy/me dical plan of care. Continue to follow at this time. Will check labs as appropriat e. Iron defic iency anemia 37451858 D50.9 Current medical problem uncontroll ed. Discussed the diagnosis as well as different treatment option, and the risks and benefits of therapy/ev aluation. Reviewed goals of treatment with patient. Patient understand s the risks and benefits of declining or accepting treatment. Please see patient discharge instructio ns for any additional informatio n concerning medical plan of care. Depressive disorder 0795 9007 F32.2 Discussed diagnosis as well as risks and benefits of therapy. Continue current therapy/me dical plan of care. Continue to follow at this time. Will check labs as appropriat e. Psoriasis with arthropathy 02882251 L40.50 Discussed diagnosis as well as risks and benefits of therapy. Continue current therapy/me dical plan of care. Continue to follow at this time. Will check labs as appropriat e. Sciatica 41474063 M54.30 Stable. Controlled . Continue current therapy/me dical plan of care. Hypertensive disorder 38 989096 I10 Blood pressure under good control. Continue medication s. Encourage patient to continue to monitor blood pressure regularly. Complicati on due to diabetes mellitus 68590578 E11.8 [id number] JOSETTE Lowe [address] [place] [address] 04/02/2016 15:34:49 04/02/2016 16:24:06 Psoriasis with arthropathy 98671139 L40.50 controlled : no active psoriasis, joint tenderness or synovitis on exam today; Morning stiffness less than 1 hour with mild fatigue and no sleeping difficulti es. Patient is active and able to do her daily activities Continue with Enbrel 50 mg subcutaneo us weekly, Sed Rate is 11 and CRP was 0.8 . Return in 3 months with labs Long-term drug therapy 150382079 Z79.899 Patient is tolerating current medication s well, not reporting any adverse effects from medication s. Next labs with follow-up appointmen t. [id number] JOSETTE Lowe [address] [place] [address] 06/26/2016 13:12:08 06/26/2016 14:03:49 Psoriasis with arthropathy 42590929 L40.50 controlled : no active psoriasis, joint [...] with new Rheumatolo gist Long-term drug therapy 873169450 Z79.899 Patient is tolerating current medication s well, not reporting any adverse effects from medication s. Next labs with follow-up irving felder [id number] Rakesh Clark Jr, MD [address] [place] [address] 06/27/2016 08:49:08 07/04/2016 17:19:46 Bipolar disorder 15478727 F31.11 Stable. Controlled . Continue current therapy/me dical plan of care. Menopausal symptom 59661 002 N95.1 Discussed diagnosis as well as risks and benefits of therapy. Continue current therapy/me dical plan of care. Continue to follow at this time. Will check labs as appropriat e. Hyperlipidemia 86978889 E78.5 Discussed lipid profile. Discussed risks and benefits of therapy. Lipid at goal based on current overall risk factors. Continue current therapy. Polyneurop athy due to diabetes mellitus 46290548 E11.42 Doing well. Hemoglobin A1c stable. Reviewed current glycemic goals. Continue current treatment. Peripheral neuropathic pain 522194529 M79.2 Discussed diagnosis as well as risks and benefits of therapy. Continue current therapy/me dical plan of care. Continue to follow at this time. Will check labs as appropriat e. Urinary incontinence 165 225164 R32 Discussed diagnosis as well as risks and benefits of therapy. Continue current therapy/me dical plan of care. Continue to follow at this time. Will check labs as appropriat e. Iron defic iency anemia 00758567 D50.9 Current medical problem uncontroll ed. Discussed the diagnosis as well as different treatment option, and the risks and benefits of therapy/ev aluation. Reviewed goals of treatment with patient. Patient understand s the risks and benefits of declining or accepting treatment. Please see patient discharge instructio ns for any additional informatio n concerning medical plan of care. Depressive disorder 8275 5864 F32.2 Discussed diagnosis as well as risks and benefits of therapy. Continue current therapy/me dical plan of care. Continue to follow at this time. Will check labs as appropriat e. Psoriasis with arthropathy 85862900 L40.50 Discussed diagnosis as well as risks and benefits of therapy. Continue current therapy/me dical plan of care. Continue to follow at this time. Will check labs as appropriat e. Sciatica 32395611 M54.30 Stable. Controlled . Continue current therapy/me dical plan of care. Hypertensive disorder 38 287145 I10 Blood pressure under good control. Continue medication s. Encourage patient to continue to monitor blood pressure regularly. Adult heal th examination 992883671 Z00.01 Welcome to Medicare Visit done today. Recurrent major depressive episodes 032749544 F33.1 Discussed the diagnosis as well as [...] current issues. Anemia cau sed by medication 564659243 T50.905A Discussed diagnosis as well as risks and benefits of therapy. Continue current therapy/me dical plan of care. Continue to follow at this time. Will check labs as appropriat e. Obesity 944745821 E66.9 Discussed the diagnosis as well as the risks and benefits of therapy/ev aluation. Patient understand s the risks and benefits of declining or accepting treatment. Please see patient discharge instructio ns for any additional informatio n concerning medical plan of care. 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 Patient understand s the risks and benefits of declining or accepting treatment. Please see patient discharge instructio ns for any additional informatio n concerning medical plan of care. Morbid obesity 373606731 E66.01 weight issues discussed and informatio n on weight loss given. needs follow up on weight control as scheduled. Education handout on diets given. Exercise counseling done. Will arrange referral for dietitian, nutritioni st, Physical/o ccupationa l therapy as needed or desired. Also will consider pharmaceut ical and supplement al interventi ons Body mass index 40+ - severely obese 763773994 Z68.41 BMI 40.0-44.9. See Morbid Obesity above for details. Herniation of rectum into vagina 794339742 N81.6 She reports that she saw the [...] care. Gastro-eso phageal reflux disease with esophagitis 023780694 K21.0 Discussed diagnosis as well as risks and benefits of therapy. Continue current therapy/me dical plan of care. Continue to follow at this time. Will check labs as appropriat e. Fibromyalgia 775407529 M 79.7 Discussed diagnosis as well as [...] Lim Member ID Guarantor Name 11/28/2015 1 [place] [id number] Kelly Peacock [id number] Kelly Tomas'Donnell 02/27/2016 1 [place] Kelly Sheldonell [id number] [place] 04/02/2016 1 [place] [id number] Kelly Sheldonell [id number] Kelly Ann [place] 06/26/2016 1 [place] [id number] Kelly Sheldonell [id number] Kelly Ann [place] 06/27/2016 1 [place] Kelly Peacock [id number] Kelly Juan Notes Date Note Type Note Provider Name [...] discussed during her visit today JOSETTE Lowe [address] [facility] [address], [place], [address], [facility], [employer] 11/28/2015 16:08:29 7 text/html ArthritisReported bypatient.Reason for [...] he coming unbearable. Rakesh Clark Jr, MD [address] [address], [place], [address], [facility], [facility] 03/19/2016 01:38:55 7 text/html Rheumatology GeneralReported bypatient.Reason [...] discussed during her visit today JOSETTE Lowe [address], [place], [address], [facility], [facility] 04/02/2016 16:29:19 7 text/html Rheumatology GeneralReported bypatient.Reason [...] her visit today, [place] JOSETTE Lowe [address], [place], [address], [facility], [facility] 06/26/2016 14:31:24 7 text/html ArthritisReported bypatient.Reason for [...] time. [place]Diabetes with Complications*Reported bypatient.Reason for visit:continued care of [...] Annual Wellness VisitReported bypatient.Visit type:welcome to Medicare IPPE PMH/PSH/Rx and Social History Review:updated EMR in [...] past the knee Rakesh Clark Jr, MD [address] [address], [place], [address], [facility], [facility] 07/11/2016 17:09:31 OBGyn Episode No OBEpisode recorded.
[2024-06-09 13:33] LABS: Basophils Absolute Auto 0.1 X10*3/uL (0.0-0.2); Basophils Percent Auto 0.7 % (0-2); Eosinophils Absolute Auto 0.2 X10*3/uL (0.0-0.4); Eosinophils Percent Auto 2.2 % (0-4); Hematocrit 41.3 % (37.0-47.0); Hemoglobin 13.4 g/dl (12.0-16.0); Imm Gran Abs Auto 0.02 X10*3/uL (0.00-0.03); Imm Gran Pct Auto 0.3 % (0.0-0.4); Lymphocytes Absolute Auto 1.8 X10*3/uL (1.2-4.9); Lymphocytes Percent Auto 24.9 % (20-40); Mean Corpuscular HGB Conc 32.4 g/dl (31.0-35.0); Mean Corpuscular Hemoglobin 29.8 pg (27.0-33.0); Mean Corpuscular Volume 91.8 fL (80.0-98.0); Monocytes Absolute Auto 0.5 X10*3/uL (0.1-1.2); Monocytes Percent Auto 6.8 % (2-11); Neutrophils Absolute Auto 4.8 x10*3/uL (2.0-8.3); Neutrophils Percent Auto 65.1 % (45-73); Platelet Count 277 X10*3/uL (160-400); White Blood Count 7.4 X10*3/uL (4.8-10.8)
[2024-06-09 13:35] LABS: Estimated Average Glucose 140 mg/dL; Hemoglobin A1C 162.4587 umol/L; Hemoglobin A1c % 6.5 % (<6.0); Total Hemoglobin (HGBA1C) 3415.5739 umol/L
[2024-06-09 14:01] LABS: Creatinine Urine 81.56 mg/dL; Microalbumin Urine < 5.0 mg/L
[2024-06-09 14:04] LABS: Alanine Aminotransferase 21 U/L (0-31); Albumin Level 3.8 g/dL (3.5-5.0); Alkaline Phosphatase 81 U/L (39-117); Anion Gap 11 (12-20); Aspartate Amino Transferase 21 U/L (5-31); Bilirubin Total 0.5 mg/dL (0.0-1.0); Blood Urea Nitrogen 30 mg/dL (9-16); Calcium 9.1 mg/dL (8.4-10.2); Carbon Dioxide 30 mmol/L (22-29); Chloride 104 mmol/L (96-108); Cholesterol 160 mg/dL (<200); Estimated Glomerular Filt Rate > 60; Glucose Fasting 143 mg/dL (60-99); HDL Cholesterol 65 mg/dL (>40); LDL Cholesterol Calculated 79 mg/dL (<100); Potassium 5.1 mmol/L (3.3-5.1); Sodium 140 mmol/L (135-145); TSH reflex Free T4 1.28 uIU/mL (0.32-4.0); Total Protein 6.5 g/dL (6.5-8.0); Triglycerides 83 mg/dL (<150)
== END 2024-06-09 11:19 | disposition home or self-care (01) ==
LOC: HO.HMGCLDS 11:18
PROVIDERS: PCP Internal Medicine; Visit Provider Internal Medicine
DX: I10 Essential (primary) hypertension (principal); E78.5 Hyperlipidemia, unspecified; E11.9 Type 2 diabetes mellitus without complications
CPT/HCPCS: 36415; 80053; 80061; 82570; 83036; 84443; 85025

== ENCOUNTER 2024-06-15 13:02 | Outpatient (AMB) | payer MEDICARE, MEDICAID, SELFPAY ==
[2024-06-15 13:15] VITALS: BP 124/84; PULSE 90; RESP 20; O2SAT 98; BMI 30.1
--- NOTE | 2024-06-15 13:15 | A.OFFPC_ITS ---
Vital Signs 06/15/24 13:15 Height 5 ft 3 in Weight 170 lb BMI 30.1 BP 124/84 Blood Pressure Location Lt brachial Position Sitting Respiration 20 Pulse 90 Pulse Source Pulse Oximeter Pulse Oximetry (%) 98 Oxygen Delivery Method Room Air Intake Visit Reasons: 3m follow up Intake Note: Pt is here today for 3 months follow up visit. Pt states that she has been having a cough. Allergies amlodipine [From Norvasc] Allergy (Unknown, Verified 06/15/24 13:16) Anaphylaxis chlorthalidone Allergy (Unknown, Verified 06/15/24 13:16) Anaphylaxis doxycycline Allergy (Unknown, Verified 06/15/24 13:16) Anaphylaxis erythromycin base Allergy (Unknown, Verified 06/15/24 13:16) Anaphylaxis loracarbef [From Lorabid] Allergy (Unknown, Verified 06/15/24 13:16) Anaphylaxis prednisone Allergy (Unknown, Verified 06/15/24 13:16) manic Sulfa (Sulfonamide Antibiotics) Allergy (Unknown, Verified 06/15/24 13:16) anaphylaxis sulfamethoxazole [From Bactrim] Allergy (Unknown, Verified 06/15/24 13:16) Anaphylaxis trimethoprim [From Bactrim] Allergy (Unknown, Verified 06/15/24 13:16) Anaphylaxis Lorabid Allergy (Unknown, Uncoded 06/15/24 13:16) anaphylaxis Medication List - Last Reconciled 06/15/24 by Almaz Billy MD albuterol sulfate 0.63 mg (3 mL) inhalation Q6H albuterol sulfate 90 mcg/actuation 2 puffs inhalation Q6H PRN atorvastatin 40 mg PO DAILY budesonide-formoterol 80-4.5 mcg/actuation (Symbicort) 2 puffs inhalation BID buspirone mg PO BID cetirizine 10 mg PO DAILY PRN clonazepam mg PO gabapentin 600 mg PO BID lamotrigine 150 mg PO DAILY meloxicam 7.5 mg PO DAILY nebulizers Nebulizer and supplies omeprazole 20 mg PO BID promethazine-codeine 6.25-10 mg/5 mL 5 mL PO Q6H PRN 7 days secukinumab 150 mg subcut .2 times a month semaglutide (Ozempic) 0.5 mg (0.736 mL) subcut QWEEK tizanidine 4 mg PO TID PRN trazodone 200 mg PO DAILY Tobacco use date assessed: 06/15/24 Fall risk assessment: No Falls in past year Last assessed Fall Risk: 06/15/24 Dental Screening Dental Screen Date: 06/15/24 Did you have a dental visit in the last 12 months?: Yes Did you have a dental problem in the last 6 months where you did not have access to dental care?: No Was dental information given to patient?: Patient has dentist HPI 3m follow up HPI Details Pt presents for f/u DM 2, hyperlipid, chronic depression. Patient follows up with psychiatrist for worsening depression. She denies suicide ideation [facility] Medical History (Updated 06/15/24 @ 15:26 by Almaz Billy MD) Asthma Fall Annual physical exam IBS (irritable bowel syndrome) Mammogram normal Fatty liver Bipolar disorder Exercise-induced asthma Hyperlipemia HTN (hypertension) Neuropathy Obesity Diabetes Psoriatic arthritis Surgical History History of bladder surgery H/O colonoscopy History of esophagogastroduodenoscopy (EGD) Hx of cholecystectomy History of total abdominal hysterectomy Family History Father No problems noted. Mother No problems noted. Sister No problems noted. Sister No problems noted. Son Mental health disorder Substance use disorder Son No problems noted. Daughter No problems noted. Social History Housing: House Alcohol intake: current Alcohol intake frequency: holidays/special occasions only Patient Tobacco Use Status: Former Tobacco user e-Cigarette/Vaping Use: Never Used service: No Current occupational status: disabled Cognitive needs: No Hearing needs: No Vision needs: Yes Questionnaire Thrive Questionnaire Date Thrive assessed: 06/12/24 I am a: Patient What is your living situation today?: I have a steady place to live Within the past 12 months, did the food you bought not last and you didn't have the money to get more?: Never true Within the past 12 months, did you worry whether your food would run out before you got money to buy more?: Never true Do you have trouble paying for medicines?: No Do you have trouble getting transportation to medical appointments?: No Do you have trouble paying your heating and electricity bill?: No Do you have trouble taking care of your child, family member or friend?: No Do you have trouble with day-to-day activities such as bathing, preparing meals, shopping, managing finances, etc.?: No Are you currently unemployed and looking for a job?: No Are you interested in more education?: No Please select the resources that you would like help with: None Currently or been in a relationship where the following occur: No concerns reported THRIVE Score: 0 AUDIT C Alcohol Use Questionnaire (AUDIT-C) 1. How often do you have a drink containing alcohol?: Never 3. How often do you have six or more drinks on one occasion?: Never Total Score: 0 KRISH-7 AMB Questionnaire KRISH-7 Date KRISH - 7 assessed: 09/16/23 Feeling nervous, anxious, or on edge: 1 = Several days Not being able to stop or control worryin = Several days Worrying too much about different things: 1 = Several days Trouble relaxin = Not at all Being so restless that it is hard to sit still: 0 = Not at all Becoming easily annoyed or irritable: 0 = Not at all Feeling afraid as if something awful might happen: 0 = Not at all Total KRISH-7 score (0-4 normal; 5-9 mild; 10-14 moderate; 15-21 severe): 3 Source: Developed by Drs. Chemo Sterling, Kathryn Carey, Santi Watson and colleagues, with an educational miguel from [employer]. Review of Systems Const All systems reviewed & are unremarkable except as noted in HPI and below Eyes Reports no additional complaints ENT Reports no additional complaints Card Reports no additional complaints Resp Reports no additional complaints Reports no additional complaints Physical exam (Primary Care) Vital Signs: Last Vital Signs Pulse 90 06/15/24 13:15 Resp 20 06/15/24 13:15 BP 124/84 06/15/24 13:15 Pulse Ox 98 06/15/24 13:15 Oxygen Delivery Method Room Air 06/15/24 13:15 BMI result Body Mass Index 30.1 Tobacco/Smoking Status: Tobacco use Status Tobacco use date assessed 06/15/24 06/15/24 13:17 Patient Tobacco Use Status Former Tobacco user 06/15/24 13:17 e-Cigarette/Vaping Use Never Used 06/15/24 13:17 Thrive Assessment: Date of Thrive Assessment Date Thrive assessed 06/12/24 06/15/24 13:17 Currently or been in a relationship where the following occur: No concerns reported Const General: no acute distress HENMT Head: Yes normal to inspection Face and sinus: Yes normal facial exam Eyes General: appearance normal, both eyes and all related structures Resp Effort & Inspection: normal respiratory effort Auscultation: clear to auscultation bilaterally Cardio Rhythm: regular rhythm Heart sounds: S1 normal heart sound present and S2 normal heart sound present GI Inspection: Yes normal to inspection Palpation (GI): Soft to palpation Percussion: Yes normal to percussion Auscultation: normal bowel sounds Coding Level of Care Code Est Pt Level 4 (74072) Diagnoses Dysuria R30.0 Diabetes E11.9 Hyperlipemia E78.5 Asthma J45.909 Bipolar disorder F31.9 Psoriatic arthritis L40.50 Assessment & Plan Assessment & Plan (1) Dysuria: Code(s): R30.0 - Dysuria Category: Medical Plan: Check UA and a culture (2) Diabetes: Comment: A1C less than 7 Code(s): E11.9 - Type 2 diabetes mellitus without complications Category: Medical Plan: A1c is 6.5. Continue ADA diet increase physical activity. He will she will continue the same medications follow-up in 4 months with a fasting labs (3) Hyperlipemia: Code(s): E78.5 - Hyperlipidemia, unspecified Category: Medical Plan: Continue statin (4) Asthma: Comment: Controlled on Symbicort Code(s): J45.909 - Unspecified asthma, uncomplicated Category: Medical Plan: Patient will check with her insurance new formulary to replace Symbicort (5) Bipolar disorder: Comment: f/u psychiatry Code(s): F31.9 - Bipolar disorder, unspecified Category: Medical Plan: Continue current medications follow-up with psychiatry (6) Psoriatic arthritis: Comment: f/u by agriculture laboratory technician Dr. Avelar Code(s): L40.50 - Arthropathic psoriasis, unspecified Category: Medical Plan: Follow-up with agriculture laboratory technician Orders: Orders UA w Microscopic Today R30.0 - Dysuria Urine Culture Today R30.0 - Dysuria Comprehensive [place]. Panel Fast 4 Months E11.9 - Type 2 diabetes mellitus without complications, E78.5 - Hyperlipidemia, unspecified, I10 - Essential (primary) hypertension, Z00.00 - Encounter for general adult medical examination without abnormal findings Complete Blood Count Auto Diff 4 Months E11.9 - Type 2 diabetes mellitus without complications, E78.5 - Hyperlipidemia, unspecified, I10 - Essential (primary) hypertension, Z00.00 - Encounter for general adult medical examination without abnormal findings Hemoglobin A1c 4 Months E11.9 - Type 2 diabetes mellitus without complications, E78.5 - Hyperlipidemia, unspecified, I10 - Essential (primary) hypertension, Z00.00 - Encounter for general adult medical examination without abnormal findings Lipid Panel 4 Months E11.9 - Type 2 diabetes mellitus without complications, E78.5 - Hyperlipidemia, unspecified, I10 - Essential (primary) hypertension, Z00.00 - Encounter for general adult medical examination without abnormal findings Medications: New benzonatate 100 mg PO TID 30 caps 0RF
--- OUTSIDE RECORDS SUMMARY | 2024-06-15 14:22 | XMS_ITS | Clinical Summary ---
Author Organization [facility] [address] [facility] Address [address] [place] [address] Phone Care Team Providers Care Manager Paper Name Role Phone Almaz Billy MD Primary Care Provider [phone] Allergies Active Allergy Reactions Criticality Noted Date [...] 1 (one) time each day. 2 Active iuxmjwbq-alxd-w wnhw-jyys-ccwhd 100 mg-150 mg- 50 mg-150 mg capsule Take 500 mg by mouth. 3 Active acetaminophen (TylenoL) 325 mg capsule Take 2 capsules (650 mg total) by mouth. 3 Active Active Problems Problem Noted Date Diagnosed Date Adenomatous polyp of colon 01/29/2024 Irritable bowel syndrome with diarrhea 4 Psoriatic arthritis ([facility] V24, [facility] V28) 1 03/31/2023 S/P partial hysterectomy 01/29/2024 Diabetes ([facility] V24, [facility] V28) 01/29/2024 Asthma 01/29/2024 Gastroesophageal [...] mmol/L LAB CHEMISTRY METHOD 01/29/2024 5:27 PM [facility] Potassium 4.7 3.5 - 5.5 mmol/L LAB CHEMISTRY METHOD 01/29/2024 5:27 PM [facility] Chloride 106 96 - 110 mmol/L LAB CHEMISTRY METHOD 01/29/2024 5:27 PM [facility] CO2 26 21 - 32 mmol/L LAB CHEMISTRY METHOD 01/29/2024 5:27 PM [facility] Anion Gap 9 3 - 11 LAB CHEMISTRY METHOD 01/29/2024 5:27 PM [facility] Glucose 95 70 - 100 mg/dL LAB CHEMISTRY METHOD 01/29/2024 5:27 PM [facility] BUN 24 5 - 25 mg/dL LAB CHEMISTRY METHOD 01/29/2024 5:27 PM [facility] Creatinine 0.83 0.50 - 1.10 mg/dL LAB CHEMISTRY METHOD 01/29/2024 5:27 PM [facility] eGFR 78 >=60 mL/min/1. 73m2 LAB CHEMISTRY METHOD 01/29/2024 5:27 PM [facility] Comment:Calculation based on the??Chronic Kidney Disease Epidemiology Collaboration (CKD-EPI) equation refit??without adjustment for race. BUN/Creatinine Ratio 28.9 LAB CHEMISTRY METHOD 01/29/2024 5:27 PM [facility] Calcium 10.2 8.5 - 10.5 mg/dL LAB CHEMISTRY METHOD 01/29/2024 5:27 PM [facility] AST (SGOT) 13 10 - 42 unit/L LAB CHEMISTRY METHOD 01/29/2024 5:27 PM [facility] ALT (SGPT) 27 10 - 60 unit/L LAB CHEMISTRY METHOD 01/29/2024 5:27 PM [facility] Alkaline Phosphatase 58 42 - 121 unit/L LAB CHEMISTRY METHOD 01/29/2024 5:27 PM [facility] Total Protein 6.8 6.0 - 8.0 g/dL LAB CHEMISTRY METHOD 01/29/2024 5:27 PM [facility] Albumin 4.0 3.2 - 5.0 g/dL LAB CHEMISTRY METHOD 01/29/2024 5:27 PM [facility] Total Bilirubin 0.6 0.0 - 1.4 mg/dL LAB CHEMISTRY METHOD 01/29/2024 5:27 PM [facility] Blood Venous blood specimen / Unknown Venipuncture / Unknown 01/29/2024 2:51 PM EST 01/29/2024 4:16 PM EST us Laz FLEMING LAB BLOOD ORDERABLES Final R esult [facility] [address] [place] [address], [place] [phone] * Pap smear (01/13/2024 12:00 AM EST) Interpretation Negative for intraepithelial lesion or malignancy 01/16/2024 3:49 PM EST [facility] General Categorization Negative 01/16/2024 3:49 PM [facility] Specimen Adequacy Satisfactory for evaluation 01/16/2024 3:49 PM [facility] Pap Methodology Liquid Based Pap Test 01/16/2024 3:49 PM [facility] Disclaimer The Pap test is a screening test which carries an inherent false negative rate. These test results should be correlated with the patient's clinical findings and history. This Pap test was processed using an automated screening system. Technical cytopathology services provided by [facility], at [address] [place] [id number] (CLIA # [id number]/Abhishek Ayala MD, Technical Support Assistant.) 01/16/2024 3:49 PM [facility] Console Pap Interpretation Reported 01/16/2024 3:49 PM [facility] Brushing/Spatula Vaginal structure / Unknown 01/13/2024 01/14/2024 9:46 AM EST Rachel Child MD LAB CYTOLOGY ORDERABLES Final Result [facility] [address] [place] [address], [place] [phone] from Last 3 Months or Most Recently Relevant to Health Maintenance Insurance MEDICARE MEDICAID - [place] Care Teams Manager Paper Relationship Specialty Start Date End Date Almaz Billy MD PCP - General Internal Medicine 01/29/24
--- OUTSIDE RECORDS SUMMARY | 2024-06-15 14:22 | XMS_ITS | Encounter Summary ---
Author Organization [facility] Address [address] [place] [address] Care Team Providers Care Hop Sorter Name Role Phone Almaz Billy MD Primary Care Provider [phone] Encounter Details Date Type Department Care Team (Latest Contact Info) Description 01/14/2024 Lab Requisition [facility] - Main Lab [address] [facility] [place] [id number] Rachel Child MD [address] [address] Encounter for gynecological examination (general) [...] lesion or malignancy 01/16/2024 3:49 PM EST [facility] General Categorization Negative 01/16/2024 3:49 PM [facility] Specimen Adequacy Satisfactory for evaluation 01/16/2024 3:49 PM [facility] Pap Methodology Liquid Based Pap Test 01/16/2024 3:49 PM [facility] Disclaimer The Pap test is a screening test which carries an inherent false negative rate. These test results should be correlated with the patient's clinical findings and history. This Pap test was processed using an automated screening system. Technical cytopathology services provided by [facility], at [address] [place] [address] (CLIA # [id number]/Abhishek Ayala MD, Classics Teacher.) 01/16/2024 3:49 PM [facility] Console Pap Interpretation Reported 01/16/2024 3:49 PM [facility] Brushing/Spatula Vaginal structure / Unknown 01/13/2024 01/14/2024 9:46 AM EST us Rachel Child MD LAB CYTOLOGY ORDERABLES Final Result [facility] [address] [place] [address], documented in this encounter Visit Diagnoses Diagnosis Encounter for gynecological examination (general) (routine) without abnormal findings documented in this encounter Additional Health Concerns Infection Onset Date Last Indicated Resolved Time C. Diff Rule-Out Infection 02/06/2024 02/06/2024 1 04/08/2023 10:20 AM EST Gastrointestinal Rule-Out 02/06/2024 02/06/2024 11:41 AM EST documented as of this encounter Care Teams Hop Sorter Relationship Specialty Start Date End Date Almaz Billy MD PCP - General Internal Medicine 01/29/24 documented as of this encounter
--- OUTSIDE RECORDS SUMMARY | 2024-06-15 14:23 | XMS_ITS | Data Portability ---
Author Organization [facility] [place], [facility] Address [address] [place] [address] Care Team Providers Care Director Of Quality Name Role Phone STUART MORRISON Primary Care Provider STUART MORRISON Referring Provider THIERRY HARPER Central Sterile Tech Assessment No assessment recorded. Plan of Treatment Reminders Order Date Submit Date Provider Last Modified By Organization Details Last Modified Time Details Appointments None recorded. [facility] 2016 017 [facility], [address], [place], [address], 7 18:03:08 CMP, serum or plasma 2016 017 [facility], [address] [place], [address], 7 18:03:08 erythrocyt e sedimentat ion rate by westergren method 2016 017 [facility], [address] [place], [address], 8 14:34:57 C-reactive protein, quantitati ve, serum or plasma 2016 017 [facility], [address], [place], [address], 8 14:34:57 urinalysis , complete 2016 017 [facility], [address], [place], [address], 7 19:19:41 CBC 2016 017 [facility], [address], [place], [address], 7 01:49:23 lipid panel, serum 2016 017 [facility], [address], [place], [address], 7 12:58:38 venipunctu re 2016 017 [facility], [address], [place], [address], 7 10:30:07 1,5-anhydr oglucitol, serum or plasma 2016 017 [facility], [address], [place], [address], 7 12:58:39 HbA1c (hemoglobi n A1c), blood 2016 017 [facility], [address], [place], [address], 7 20:36:42 CMP, serum or plasma 2016 017 [facility], [address], [place], [address], 7 12:58:37 iron + TIBC + ferritin, serum 2016 017 [facility], [address], [place], [address], 7 12:58:37 erythrocyt e sedimentat ion rate by westergren method 2015 017 [facility], [address], [place], [address], 7 12:28:13 CMP, serum or plasma 2015 017 [facility], [address], [place], [address], 7 12:28:14 CBC 2015 017 [facility], [address], [place], [address], 7 12:28:12 C-reactive protein, quantitati ve, serum or plasma 2015 017 [facility], [address], [place], [address], 7 12:28:14 Referral None recorded. Procedures None recorded. Surgeries None recorded. Imaging electrocar diogram 2016 017 [email or web address] In-Office Order, Internal Use Only DO Not Attach Compendium DO Not Attach Compendium, Do Not Delete/merge, [id number] 7 17:19:46 Medication Orders omeprazole 20 mg capsule,de layed release 2016 017 [facility], [address] [place], [address], 7 18:26:54 tizanidine 4 mg tablet 2016 017 INTERFACE [facility], [address] [place], [address], 7 18:26:54 hydrochlor othiazide 25 mg tablet 2016 017 [facility], [address] [place] [address], [place], [address], 7 18:26:56 losartan 100 mg tablet 2016 017 [facility]FACE [facility], [address] [place] [address], [place], [address], 7 18:26:53 atorvastat in 40 mg tablet 2016 017 [facility]FACE [facility], [address] [place] [address], [place], [address], 7 18:26:55 metformin 500 mg tablet 2016 017 INTERFACE [facility], [address] [place] [address], [place], [address], 7 18:26:53 Onglyza 5 mg tablet 2016 017 INTERFACE [facility], [address] [place] [address], [place], [address], 7 18:26:52 gabapentin 600 mg tablet 2016 017 INTERFACE [facility], [address], [place], [address], 7 18:26:51 Cymbalta 30 mg capsule,de layed release 2016 017 INTERFACE [facility], [address] [place] [address], [place], [address], 7 18:26:52 buspirone 15 mg tablet 2016 017 INTERFACE [facility], [address] [place] [address], [place], [address], 7 18:26:57 clonazepam 1 mg tablet 2016 017 flemoine [facility], [address] [place], [address], 7 18:28:48 Enbrel SureClick 50 mg/mL (1 mL) subcutaneo us pen injector 2016 017 [email or web address] Not available 7 18:28:48 clobetasol 0.05 % topical ointment 2016 017 INTERFACE [facility], [address] [place], [address], 7 18:26:56 clobetasol 0.05 % scalp solution 2016 017 INTERFACE [facility], [address] [place], [address], 7 18:26:51 ferrous sulfate 325 mg (65 mg iron) tablet 2016 017 INTERFACE [facility], [address] [place], [address], 7 18:26:55 Enbrel SureClick 50 mg/mL (1 mL) subcutaneo us pen injector 2016 017 ATHENA[facility]X [employer] [facility] [address] [address], [place], [address], 7 16:41:00 Nesina 25 mg tablet 2016 017 azeb [facility], [address] [place], [address], 7 16:16:47 Patient TargetsNo targets recorded. Patient Instructions Encounter Date Encounter Id Patient Instructions Last Modified By Organization Details Last Modified Time 11/28/2015 [id number] call us if condition worsens Not available 11/28/2015 15:26:26 Patient aware of issues with biologics such as stopping medication/callin g us if any infections arise, also must stop biologic prior to suregery ( should call us if surgery planned), aware of cancers such as lymphoma, skin cancers, etc.. Not available 11/28/2015 15:26:26 02/27/2016 [id number] anemia: care instructions MORA Not available 02/28/2016 [...] medical attention if symptoms worsen as directed. Influitive Speaking program was used in part of the creation of this note. The voice recognition is set for speed over accuracy. Inherently this may result in phonetic, recognition or omissions errors in this ham doctor. [email or web address] Not available 02/27/2016 18:38:48 04/02/2016 [id number] Patient Instructions call us if condition worsens Not available 04/02/2016 16:13:16 Patient aware of issues with biologics such as stopping medication/callin g us if any infections arise, also must stop biologic prior to surgery ( should call us if surgery planned), aware of cancers such as lymphoma, skin cancers, etc.. Not available 04/02/2016 16:25:17 06/26/2016 [id number] Patient Instructions call us if condition worsens Not available 06/26/2016 13:58:15 Patient aware of issues with biologics such as stopping medication/callin g us if any infections arise, also must stop biologic prior to surgery ( should call us if surgery planned), aware of cancers such as lymphoma, skin cancers, etc.. Not available 06/26/2016 13:57:04 06/27/2016 [id number] starting a weigh t loss plan: care [...] medical attention if symptoms worsen as directed. Influitive Speaking program was used in part of the creation of this note. The voice recognition is set for speed over accuracy. Inherently this may result in phonetic, recognition or omissions errors in this ham doctor. [email or web address] Not available 06/27/2016 18:28:21 Reason for Referral None Reported. Results Created Date Observation Date Name Description Value Unit Range Abnormal Flag Note LastModifiedBy Organization Detail LastModifiedTime 11/21/19 16 11/21/2015 urina lysis , dipst ick leukocytes neg negati ve Not Available In-Office Order Internal Use Only DO Not Attach Compendium DO Not Attach Compendium, Do Not Delete/merge, [id number] 11/21/2015 19:41:57 11/21/19 16 11/21/2015 urina lysis [...] DO Not Attach Compendium, Do Not Delete/merge, [id number] 11/21/2015 19:41:57 11/21/19 16 11/21/2015 urina lysis , dipst ick protein neg negati ve Not Available In-Office Order Internal Use Only DO Not Attach Compendium DO Not Attach Compendium, Do Not Delete/merge, [id number] 11/21/2015 19:41:57 11/21/19 16 11/21/2015 urina lysis , dipst ick pH 5.0 5.0-7. 0 Not Available In-Office Order Internal Use Only DO Not Attach Compendium DO Not Attach Compendium, Do Not Delete/merge, [id number] 11/21/2015 19:41:57 11/21/19 16 11/21/2015 urina lysis , dipst ick blood neg negati ve Not Available In-Office Order Internal Use Only DO Not Attach Compendium DO Not Attach Compendium, Do Not Delete/merge, [id number] 11/21/2015 19:41:57 11/21/19 16 11/21/2015 urina lysis , dipst ick specific gravity 1.030 1.020- 1.035 Not Available In-Office Order Internal Use Only DO Not Attach Compendium DO Not Attach Compendium, Do Not Delete/merge, [id number] 11/21/2015 19:41:57 11/21/19 16 11/21/2015 urina lysis , dipst ick ketone small negati ve Not Available In-Office Order Internal Use Only DO Not Attach Compendium DO Not Attach Compendium, Do Not Delete/merge, [id number] 11/21/2015 19:41:57 11/21/19 16 11/21/2015 urina lysis , dipst ick bilirubin small negati ve Not Available In-Office Order Internal Use Only DO Not Attach Compendium DO Not Attach Compendium, Do Not Delete/merge, [id number] 11/21/2015 19:41:57 11/21/19 16 11/21/2015 urina lysis , dipst ick glucose neg negati ve Not Available In-Office Order Internal Use Only DO Not Attach Compendium DO Not Attach Compendium, Do Not Delete/merge, [id number] 11/21/2015 19:41:57 11/14/19 16 11/14/2015 urina lysis , compl ete color LIGHT YELLOW Not Available [facility] [address], [place], [address], 11/14/2015 18:52:56 11/14/19 16 11/14/2015 urina lysis , compl ete appearance CLEAR clear Not Available [facility] [address], [place], [address], 11/14/2015 18:52:56 11/14/19 16 11/14/2015 urina lysis , compl ete specific gravity 1.010 Not Available [facility] [address], [place], [address], 11/14/2015 18:52:56 11/14/19 16 11/14/2015 urina lysis , compl ete pH 7.0 Not Available [facility] [address], [place], [address], 11/14/2015 18:52:56 11/14/19 16 11/14/2015 urina lysis , compl ete glucose NEGATI VE negati ve Not Available [facility] [address], [place], [address], 11/14/2015 18:52:56 11/14/19 16 11/14/2015 urina lysis , compl ete bilirubin NEGATI VE negati ve Not Available [facility] [address], [place], [address], 11/14/2015 18:52:56 11/14/19 16 11/14/2015 urina lysis , compl ete ketone NEGATI VE negati ve Not Available [facility] [address], [place], [address], 11/14/2015 18:52:56 11/14/19 16 11/14/2015 urina lysis , compl ete blood NEGATI VE negati ve Not Available [facility] [address], [place], [address], 11/14/2015 18:52:56 11/14/19 16 11/14/2015 urina lysis , compl ete protein NEGATI VE negati ve Not Available [facility] [address] [facility] [address], [place], [address], 11/14/2015 18:52:56 11/14/19 16 11/14/2015 urina lysis , compl ete urobilinogen NORMAL Not Available [facility] [address], [place], [address], 11/14/2015 18:52:56 11/14/19 16 11/14/2015 urina lysis , compl ete nitrite NEGATI VE negati ve Not Available [facility] [address], [place], [address], 11/14/2015 18:52:56 11/14/19 16 11/14/2015 urina lysis , compl ete leukocytes NEGATI VE negati ve Not Available [facility] [address] [facility] [address], [place], [address], 11/14/2015 18:52:56 11/14/19 16 11/14/2015 CBC WBC 4.4 x10^3 /uL 4.4-11 .0 Not Available [facility] [address] [place], [place] [address]y [address], [place], [address], 11/14/2015 19:40:45 11/14/19 16 11/14/2015 CBC RBC 4.71 x10^6 /uL 4.50-5 .10 Not Available [facility] [address] [place], [place] [address]y [address] [place], [address], 11/14/2015 19:40:45 11/14/19 16 11/14/2015 CBC HGB 12.0 g/dL 12.3-1 5.3 low RESUL TS VERIF IED BY REPEA T ROOSEVELT SIS Not Available [facility] [address] [place], [place] [address]y [address] [place], [address], 11/14/2015 19:40:45 11/14/19 16 11/14/2015 CBC HCT 37.5 % 35.9-4 4.6 Not Available [facility] [address] [place], [place] [address]y [address] [place], [address], 11/14/2015 19:40:45 11/14/19 16 11/14/2015 CBC MCV 79.8 fL 80.0-9 6.0 low Not Available [facility] [address] [place], [place] [address]y [address] [place], [address], 11/14/2015 19:40:45 11/14/19 16 11/14/2015 CBC MCH 25.5 pg 27.5-3 3.2 low Not Available [facility] [address] [place], [place] [address], [place], [address], 11/14/2015 19:40:45 11/14/19 16 11/14/2015 CBC MCHC 31.9 g/dL 33.4-3 5.5 low Not Available [facility] [address], [place], [address], 11/14/2015 19:40:45 11/14/19 16 11/14/2015 CBC RDW 17.2 % 11.6-1 3.7 high Not Available [facility] [address], [place], [address], 11/14/2015 19:40:45 11/14/19 16 11/14/2015 CBC plt 201 x10^3 /uL 150-45 0 Not Available [facility], [place], [address], 11/14/2015 19:40:45 11/14/19 16 11/14/2015 CBC MPV 9.1 fL 7.4-10 .4 Not Available [facility], [place], [address], 11/14/2015 19:40:45 11/14/19 16 11/14/2015 CBC neut # 2.2 x10^3 /uL 1.5-7. 2 Not Available [facility], [place], [address], 11/14/2015 19:40:45 11/14/19 16 11/14/2015 CBC lymph# 1.6 x10^3 /uL 0.7-4. 9 Not Available [facility] [address], [place], [address], 11/14/2015 19:40:45 11/14/19 16 11/14/2015 CBC mono# 0.5 x10^3 /uL 0.1-0. 9 Not Available [facility] [address], [place], [address], 11/14/2015 19:40:45 11/14/19 16 11/14/2015 CBC eos # 0.0 x10^3 /uL 0.0-0. 4 Not Available [facility] [address], [place], [address], 11/14/2015 19:40:45 11/14/19 16 11/14/2015 CBC baso # 0.0 x10^3 /uL 0.0-0. 2 Not Available [facility] [address], [place], [address], 11/14/2015 19:40:45 11/14/19 16 11/14/2015 CBC neut % 50.5 % 42.2-7 5.2 Not Available [facility] [address], [place], [address], 11/14/2015 19:40:45 11/14/19 16 11/14/2015 CBC mono% 11.9 % 1.7-9. 3 high Not Available [facility] [place], [address], 11/14/2015 19:40:45 11/14/19 16 11/14/2015 CBC eos% 1.0 % 1.0-6. 0 Not Available [facility] [address], [place], [address], 11/14/2015 19:40:45 11/14/19 16 11/14/2015 CBC baso% 0.5 % 0.0-4. 0 Not Available [facility] [address], [place], [address], 11/14/2015 19:40:45 11/14/19 16 11/14/2015 CBC lymph % 36.1 % 20.5-5 1.1 Not Available [facility] [address], [place], [address], 11/14/2015 19:40:45 11/14/19 16 11/14/2015 CMP, serum or plasm a sodium 139 mmol/ L 136-14 5 Not Available [facility] [address], [place], [address], 11/14/2015 19:54:40 11/14/19 16 11/14/2015 CMP, serum or plasm a potassium 4.5 mmol/ L 3.6-5. 1 Not Available [facility] [address] [place], [place] [address]y [address], [place], [address], 11/14/2015 19:54:40 11/14/19 16 11/14/2015 CMP, serum or plasm a chloride 101 mmol/ L 98-108 Not Available [facility] [address] [facility] [address], [place], [address], 11/14/2015 19:54:40 11/14/19 16 11/14/2015 CMP, serum or plasm a carbon dioxide 34 mmol/ L 18-33 high Not Available [facility] [address] [place], [place] [address]y [address] [place], [address], 11/14/2015 19:54:40 11/14/19 16 11/14/2015 CMP, serum or plasm a glucose 79 mg/dL 65-99 Not Available [facility] [address], [place], [address], 11/14/2015 19:54:40 11/14/19 16 11/14/2015 CMP, serum or plasm a BUN 14 mg/dL 7-18 Not Available [facility] [address], [place], [address], 11/14/2015 19:54:40 11/14/19 16 11/14/2015 CMP, serum or plasm a creatinine 0.8 mg/dL 0.8-1. 3 Not Available [facility] [address] [place], [place] [address]y [address], [place], [address], 11/14/2015 19:54:40 11/14/19 16 11/14/2015 CMP, serum or plasm a BUN/creat ratio 17.5 calc 10.0-2 5.0 Not Available [facility] [address] [place], [place] [address]y [address], [place], [address], 11/14/2015 19:54:40 11/14/19 16 11/14/2015 CMP, serum or plasm a calcium 8.7 mg/dL 8.5-10 .6 Not Available [facility] [address] [place], [place] [address]y [address], [place], [address], 11/14/2015 19:54:40 11/14/19 16 11/14/2015 CMP, serum or plasm a total protein 6.9 g/dL 6.4-8. 1 Not Available [facility] [address] [place], [place] [address]y [address], [place], [address], 11/14/2015 19:54:40 11/14/19 16 11/14/2015 CMP, serum or plasm a albumin 4.1 g/dL 3.3-5. 5 Not Available [facility] [address] [place], [place] [address]y [address], [place], [address], 11/14/2015 19:54:40 11/14/19 16 11/14/2015 CMP, serum or plasm a globulin 2.8 g/dL 1.3-4. 0 Not Available [facility] [address] [place], [place] [address]y [address] [place], [address], 11/14/2015 19:54:40 11/14/19 16 11/14/2015 CMP, serum or plasm a A/G ratio 1.5 calc 1.0-2. 8 Not Available [facility] [address] [place] [address] [address] [place], [address], 11/14/2015 19:54:40 11/14/19 16 11/14/2015 CMP, serum or plasm a alk. phosphatase 69 U/L 50-128 Not Available [facility] [address] [place] [address] [address] [place], [address], 11/14/2015 19:54:40 11/14/19 16 11/14/2015 CMP, serum or plasm a ALT (SGPT) 28 U/L 10-47 Not Available [facility] [address] [place] [address] [address] [place], [address], 11/14/2015 19:54:40 11/14/19 16 11/14/2015 CMP, serum or plasm a AST (SGOT) 30 U/L 11-38 Not Available [facility] [address] [place] [address], [address], 11/14/2015 19:54:40 11/14/19 16 11/14/2015 CMP, serum or plasm a total bilirubin 0.46 mg/dL 0.20-1 .60 Not Available [facility] [address] [place] [address], [address], 11/14/2015 19:54:40 11/14/19 16 11/14/2015 CMP, serum or plasm a GFR >60.0 >=60.0 IF PATIE NT IS AFRIC AN AMERI CAN, MULTI PLY RESUL T BY 1.21 Not Available [facility] [address] [place] [address] [address] [place], [address], 11/14/2015 19:54:40 11/14/19 16 11/14/2015 lipid panel , serum cholesterol 111 mg/dL 20-180 Not Available [facility] [address] [facility] [address] [place], [address], 11/14/2015 19:54:40 11/14/19 16 11/14/2015 lipid panel , serum triglyceride s 62 mg/dL 30-150 Not Available [facility] [address] [facility] [address] [place], [address], 11/14/2015 19:54:40 11/14/19 16 11/14/2015 lipid panel , serum HDL cholesterol 42 mg/dL 23-92 Not Available [facility] [address] [facility] [address] [place], [address], 11/14/2015 19:54:40 11/14/19 16 11/14/2015 lipid panel , serum VLDL cholesterol 12 calc Not Available [facility] [address] [place] [address], [address], 11/14/2015 19:54:40 11/14/19 16 11/14/2015 lipid panel , serum HDL risk factor 2.6 calc RISK FACTO R MALE FEMAL E 1/2 AVG RISK 3.4 3.3 AVG RISK 5.0 4.0 2X AVG RISK 9.6 7.1 3X AVG RISK 24.0 11.0 Not Available [facility] [address] [place] [address] [address] [place], [address], 11/14/2015 19:54:40 11/14/19 16 11/14/2015 lipid panel , serum cholesterol/ HDL ratio 3 calc CHOL/ HDL RATIO <3 OPTIM AL 3-4 BORDE RLINE >6 HIGH RISK Not Available [facility] [address] [facility] [address] [place], [address], 11/14/2015 19:54:40 11/14/19 16 11/14/2015 lipid panel , serum non-HDL cholesterol 69 calc NON-H DL TROY STERO L <190 MG/DL LOW RISK <160 MG/DL MODER ATE RISK <130 MG/DL HIGH RISK Not Available [facility] [address], [place], [address], 11/14/2015 19:54:40 11/14/19 16 11/15/2015 CMP, serum or plasm a glucose 96 mg/dL 65-99 normal Fasti ng refer ence inter inocencio Not Available [facility] [address], [place], [address], 11/15/2015 06:13:50 11/14/19 16 11/15/2015 CMP, serum or plasm a urea nitrogen (BUN) 14 mg/dL 7-25 normal Not Available [facility] [address], [place], [address], 11/15/2015 06:13:50 11/14/19 16 11/15/2015 CMP, serum or plasm a creatinine 0.85 mg/dL 0.50-1 .05 normal For patie nts >49 years of age, the refer ence limit for Creat inine is appro ximat mark 13% highe r for peopl e ident ified as Afric an-Am hong n. Not Available [facility] [address], [place], [address], 11/15/2015 06:13:50 11/14/19 16 11/15/2015 CMP, serum or plasm a eGFR non-afr. mauritian 76 mL/mi n/1.7 3m2 > or = 60 normal Not Available [facility] [address], [place], [address], 11/15/2015 06:13:50 11/14/19 16 11/15/2015 CMP, serum or plasm a eGFR 88 mL/mi n/1.7 3m2 > or = 60 normal Not Available [facility] [address], [place], [address], 11/15/2015 06:13:50 11/14/19 16 11/15/2015 CMP, serum or plasm a BUN/creatini ne ratio NOT APPLIC ABLE (calc ) 6-22 Not Available [facility] [address], [place], [address], 11/15/2015 06:13:50 11/14/19 16 11/15/2015 CMP, serum or plasm a sodium 137 mmol/ L 135-14 6 normal Not Available [facility] [address], [place], [address], 11/15/2015 06:13:50 11/14/19 16 11/15/2015 CMP, serum or plasm a potassium 4.3 mmol/ L 3.5-5. 3 normal Not Available [facility] [address], [place], [address], 11/15/2015 06:13:50 11/14/19 16 11/15/2015 CMP, serum or plasm a chloride 100 mmol/ L 98-110 normal Not Available [facility] [address], [place], [address], 11/15/2015 06:13:50 11/14/19 16 11/15/2015 CMP, serum or plasm a carbon dioxide 28 mmol/ L 20-31 normal Not Available [facility] [address], [place], [address], 11/15/2015 06:13:50 11/14/19 16 11/15/2015 CMP, serum or plasm a calcium 8.7 mg/dL 8.6-10 .4 normal Not Available [facility] [address], [place], [address], 11/15/2015 06:13:50 11/14/19 16 11/15/2015 CMP, serum or plasm a protein, total 6.9 g/dL 6.1-8. 1 normal Not Available [facility] [address], [place], [address], 11/15/2015 06:13:50 11/14/19 16 11/15/2015 CMP, serum or plasm a albumin 4.2 g/dL 3.6-5. 1 normal Not Available [facility] [address], [place], [address], 11/15/2015 06:13:50 11/14/19 16 11/15/2015 CMP, serum or plasm a globulin 2.7 g/dL_ (calc ) 1.9-3. 7 normal Not Available [facility] [address], [place], [address], 11/15/2015 06:13:50 11/14/19 16 11/15/2015 CMP, serum or plasm a albumin/glob ulin ratio 1.6 (calc ) 1.0-2. 5 normal Not Available [facility] [address], [place], [address], 11/15/2015 06:13:50 11/14/19 16 11/15/2015 CMP, serum or plasm a bilirubin, total 0.4 mg/dL 0.2-1. 2 normal Not Available [facility] [address] [address], [place], [address], 11/15/2015 06:13:50 11/14/19 16 11/15/2015 CMP, serum or plasm a alkaline phosphatase 62 U/L 33-130 normal Not Available [facility] [address], [place], [address], 11/15/2015 06:13:50 11/14/19 16 11/15/2015 CMP, serum or plasm a AST 27 U/L 10-35 normal Not Available [facility] [address], [place], [address], 11/15/2015 06:13:50 11/14/19 16 11/15/2015 CMP, serum or plasm a ALT 25 U/L 6-29 normal Not Available [facility] [address], [place], [address], 11/15/2015 06:13:50 11/14/19 16 11/15/2015 eryth rocyt e sedim entat ion rate by westkatlyn lagunasren metho d sed rate by modified lyndseyren 7 mm/h < or = 30 normal Not Available [facility] [address], [place], [address], 11/15/2015 06:13:51 11/14/19 16 11/15/2015 CBC w/ auto diff white blood cell count 4.5 thous and/u L 3.8-10 .8 normal Not Available [facility] [address], [place], [address], 11/15/2015 06:13:51 11/14/19 16 11/15/2015 CBC w/ auto diff red blood cell count 4.67 bere on/uL 3.80-5 .10 normal Not Available [facility] [address], [place], [address], 11/15/2015 06:13:51 11/14/19 16 11/15/2015 CBC w/ auto diff hemoglobin 11.8 g/dL 11.7-1 5.5 normal Not Available [facility] [address], [place], [address], 11/15/2015 06:13:51 11/14/19 16 11/15/2015 CBC w/ auto diff hematocrit 37.8 % 35.0-4 5.0 normal Not Available [facility] [address], [place], [address], 11/15/2015 06:13:51 11/14/19 16 11/15/2015 CBC w/ auto diff MCV 81.0 fL 80.0-1 00.0 normal Not Available [facility] [place] [facility] [address], [place], [address], 11/15/2015 06:13:51 11/14/19 16 11/15/2015 CBC w/ auto diff MCH 25.3 pg 27.0-3 3.0 low Not Available [facility] [place] [facility] [address], [place], [address], 11/15/2015 06:13:51 11/14/19 16 11/15/2015 CBC w/ auto diff MCHC 31.2 g/dL 32.0-3 6.0 low Not Available [facility] [place] [facility] [address], [place], [address], 11/15/2015 06:13:51 11/14/19 16 11/15/2015 CBC w/ auto diff RDW 17.2 % 11.0-1 5.0 high Not Available [facility] [place] [facility] [address], [place], [address], 11/15/2015 06:13:51 11/14/19 16 11/15/2015 CBC w/ auto diff platelet count 188 thous and/u L 140-40 0 normal Not Available [facility] [place] [facility] [address], [place], [address], 11/15/2015 06:13:51 11/14/19 16 11/15/2015 CBC w/ auto diff MPV 8.4 fL 7.5-11 .5 normal Not Available [facility] [address], [place], [address], 11/15/2015 06:13:51 11/14/19 16 11/15/2015 CBC w/ auto diff absolute neutrophils 2178 cells /uL 1500-7 800 normal Not Available [facility] [place] [facility] [address], [place], [address], 11/15/2015 06:13:51 11/14/19 16 11/15/2015 CBC w/ auto diff absolute lymphocytes 1683 cells /uL 850-39 00 normal Not Available [facility] [place] [facility] [address], [place], [address], 11/15/2015 06:13:51 11/14/19 16 11/15/2015 CBC w/ auto diff absolute monocytes 567 cells /uL 200-95 0 normal Not Available [facility] [place] [facility] [address], [place], [address], 11/15/2015 06:13:51 11/14/19 16 11/15/2015 CBC w/ auto diff absolute eosinophils 50 cells /uL 15-500 normal Not Available [facility] [place] [facility] [address], [place], [address], 11/15/2015 06:13:51 11/14/19 16 11/15/2015 CBC w/ auto diff absolute basophils 23 cells /uL 0-200 normal Not Available [facility] [place] [facility] [address], [place], [address], 11/15/2015 06:13:51 11/14/19 16 11/15/2015 CBC w/ auto diff neutrophils 48.4 % normal Not Available [facility] [place] [facility] [address], [place], [address], 11/15/2015 06:13:51 11/14/19 16 11/15/2015 CBC w/ auto diff lymphocytes 37.4 % normal Not Available [facility] [place] [facility] [address], [place], [address], 11/15/2015 06:13:51 11/14/19 16 11/15/2015 CBC w/ auto diff monocytes 12.6 % normal Not Available [facility] [place] [facility] [address], [place], [address], 11/15/2015 06:13:51 11/14/19 16 11/15/2015 CBC w/ auto diff eosinophils 1.1 % normal Not Available [facility] [place] [facility] [address], [place], [address], 11/15/2015 06:13:51 11/14/19 16 11/15/2015 CBC w/ auto diff basophils 0.5 % normal Not Available [facility] [place] [facility] [address], [place], [address], 11/15/2015 06:13:51 11/14/19 16 11/15/2015 HbA1c (hemo globi n A1c), blood estimated average glucose 142.7 mg/dL 97.0-1 40.0 high Not Available [facility] [address] [facility] [address] [place], [address], 11/15/2015 07:54:59 11/14/19 16 11/15/2015 HbA1c (hemo [...] OVASC ULAR COMPL ICATI ONS. Not Available [facility] [address] [facility] [address] [place], [address], 11/15/2015 07:54:59 11/14/19 16 11/16/2015 LDL, direc t, serum direct LDL 65 mg/dL <130 Kirk able range <100 mg/dL for patie nts with CHD or diabe sergio and <70 mg/dL for diabe tic patie nts with known heart disea se. Not Available [facility] [address] [facility] [address] [place], [address], 11/16/2015 11:48:35 11/14/19 16 11/16/2015 1,5-a nhydr [...] COMME NT: EDINSON MILAN A. Not Available [facility] [address] [place], [address], 11/16/2015 11:48:36 11/14/19 16 11/16/2015 T4, free, serum T4, free 1.0 NG/dL 0.8-1. 8 Not Available [facility] [address] [place], [place] [address]y [address] [place], [address], 11/16/2015 17:35:59 11/14/19 16 11/16/2015 TSH, serum or plasm a TSH 1.83 mIU/L 0.40-4 .50 Not Available [facility] [address] [place] [address] [address] [place], [address], 11/16/2015 17:35:59 11/14/19 16 11/16/2015 C-mick ctive prote in, quant itati ve, serum or plasm a C-reactive protein 0.20 mg/dL <0.80 Pleas e be advis ed that patie nts tanjain g Carbo xypen icill ins may exhib it false ly decre ased C-Belton ctive Prote in level s due to an roosevelt tical inter feren ce in this assay . Not Available [facility] [address] [place] [address] [address] [place], [address], 11/16/2015 17:35:59 11/14/19 16 11/16/2015 eryth rocyt e sedim entat ion rate by august almaraz metho d sed rate by modified emerita 14 mm/h < or = 30 Not Available [facility] [address] [place] [address] [address] [place], [address], 11/16/2015 17:36:00 11/14/19 16 11/16/2015 vitam in B12 + folat e, serum or blood vitamin B12 415 pg/mL 200-11 00 Not Available [facility] [address] [place] [address] [address] [place], [address], 11/16/2015 17:36:00 11/14/19 16 11/16/2015 vitam in B12 + folat e, serum or blood folate, serum 11.7 NG/mL Refer ence Range Low: <3.4 Borde rline : 3.4-5 .4 Vanessa l: >5.4 Not Available [facility] [address] [place] [address] [address] [place], [address], 11/16/2015 17:36:00 11/14/19 16 11/16/2015 iron + TIBC + kimberley tin, serum iron, total 30 mcg/d L 45-160 low Not Available [facility] [address] [place] [address], [address], 11/16/2015 17:36:01 11/14/19 16 11/16/2015 iron + TIBC + kimberley tin, serum iron binding capacity 451 mcg/d L_(ca lc) 250-45 0 high Not Available [facility] [address] [place] [address], [address], 11/16/2015 17:36:01 11/14/19 16 11/16/2015 iron + TIBC + kimberley tin, serum % saturation 7 %_(ca lc) 11-50 low Not Available [facility] [address] [place] [address], [address], 11/16/2015 17:36:01 11/14/19 16 11/16/2015 iron + TIBC + kimberley tin, serum ferritin 18 NG/mL 10-232 Not Available [facility] [address], [place], [address], 11/16/2015 17:36:01 11/14/19 16 11/16/2015 vitam in B1 (thia mine) , blood vitamin B1 (thiamine), blood 79 nmol/ L 78-185 Vitam in suppl ement ation withi n 24 hours prior to blood draw may affec t the accur acy of the resul ts. This test was devel oped and its roosevelt tical perfo rmanc e brenton cteri stics have been deter mined by [employer] [facility] [place]. It has not been clear ed or appro deana by the U.S. Food and Drug Admin istra tion. This assay has been valid ated pursu ant to the CLIA regul ation s and is used for clini maximo purpo ses. Not Available [facility] [address] [facility] [address], [place], [address], 11/19/2015 10:22:49 11/14/19 16 11/16/2015 vitam in B6 (pyri doxin e), plasm a vitamin B6 6.9 NG/mL 2.1-21 .7 Vitam in suppl ement ation withi n 24 hours prior to blood draw may affec t the accur acy of the resul ts. This test was devel oped and its roosevelt tical perfo rmanc e brenton cteri stics have been deter mined by [employer] [facility], [place]. It has not been clear ed or appro deana by the U.S. Food and Drug Admin istra tion. This assay has been valid ated pursu ant to the CLIA regul ation s and is used for clini maximo purpo ses. Not Available [facility] [address], [place], [address], 11/19/2015 10:22:50 11/14/19 16 11/14/2015 venip unctu re venipuncture CHARGE Not Available [facility] [address], [place], [address], 11/14/2015 13:59:26 11/22/19 16 11/24/2015 cultu re, urine culture, urine, routine SEE NOTE CULTU RE, URINE , ROUTI NE MICRO NUMBE R: [id number] TEST STATU S: FINAL SPECI MEN SOURC E: URINE SPECI MEN QUALI TY: ADEQU ATE RESUL T: Multi ple organ isms prese nt, each less than 10,00 0 CFU/m L. These organ isms, commo nly found on exter nal and inter nal genit bronson, are consi dered to be colon izers . No furth er testi ng perfo rmed. Not Available [facility] [address] [facility] [address], [place], [address], 11/24/2015 05:10:54 11/22/19 16 11/24/2015 cultu re, urine culture, urine, routine SEE NOTE CULTU RE, URINE , ROUTI NE MICRO NUMBE R: [id number] TEST STATU S: FINAL SPECI MEN SOURC E: URINE SPECI MEN QUALI TY: ADEQU ATE RESUL T: Multi ple organ isms prese nt, each less than 10,00 0 CFU/m L. These organ isms, commo nly found on exter nal and inter nal genit bronson, are consi dered to be colon izers . No furth er testi ng perfo rmed. Not Available [facility] [address], [place], [address], 11/29/2015 06:33:11 02/16/19 17 02/18/2016 CMP, serum or plasm a glucose 99 mg/dL 65-99 normal Fasti ng refer ence inter inocencio Not Available [facility] [address] [facility] [address] [place], [address], 02/18/2016 09:59:52 02/16/1902/18/2016 CMP, serum or plasm a urea nitrogen (BUN) 14 mg/dL 7-25 normal Not Available [facility] [address] [facility] [address] [place], [address], 02/18/2016 09:59:52 02/16/19 17 02/18/2016 CMP, serum or plasm a creatinine 0.88 mg/dL 0.50-1 .05 normal For patie nts >49 years of age, the refer ence limit for Creat inine is appro ximat mark 13% highe r for peopl e ident ified as Afric an-Am hong n. Not Available [facility] [address] [facility] [address] [place], [address], 02/18/2016 09:59:52 02/16/1902/18/2016 CMP, serum or plasm a eGFR non-afr. mauritian 73 mL/mi n/1.7 3m2 > or = 60 normal Not Available [facility] [address] [facility] [address] [place], [address], 02/18/2016 09:59:52 02/16/1902/18/2016 CMP, serum or plasm a eGFR 85 mL/mi n/1.7 3m2 > or = 60 normal Not Available [facility] [address] [facility] [address] [place], [address], 02/18/2016 09:59:52 02/16/1902/18/2016 CMP, serum or plasm a BUN/creatini ne ratio NOT APPLIC ABLE (calc ) 6-22 Not Available [facility] [address] [facility] [address] [place], [address], 02/18/2016 09:59:52 02/16/1902/18/2016 CMP, serum or plasm a sodium 140 mmol/ L 135-14 6 normal Not Available [facility] [address] [place], [place] [address]y [address], [place], [address], 02/18/2016 09:59:52 02/16/1902/18/2016 CMP, serum or plasm a potassium 3.9 mmol/ L 3.5-5. 3 normal Not Available [facility] [address] [place], [place] [address]y [address], [place], [address], 02/18/2016 09:59:52 02/16/1902/18/2016 CMP, serum or plasm a chloride 103 mmol/ L 98-110 normal Not Available [facility] [address] [place], [place] [address]y [address] [place], [address], 02/18/2016 09:59:52 02/16/1902/18/2016 CMP, serum or plasm a carbon dioxide 21 mmol/ L 20-31 normal Not Available [facility] [address] [place], [place] [address] [address] [place], [address], 02/18/2016 09:59:52 02/16/1902/18/2016 CMP, serum or plasm a calcium 9.7 mg/dL 8.6-10 .4 normal Not Available [facility] [address] [place], [place] [address] [address] [place], [address], 02/18/2016 09:59:52 02/16/1902/18/2016 CMP, serum or plasm a protein, total 6.6 g/dL 6.1-8. 1 normal Not Available [facility] [address] [place], [place] [address]y [address], [place], [address], 02/18/2016 09:59:52 02/16/1902/18/2016 CMP, serum or plasm a albumin 4.0 g/dL 3.6-5. 1 normal Not Available [facility] [address] [facility] [address], [place], [address], 02/18/2016 09:59:52 02/16/1902/18/2016 CMP, serum or plasm a globulin 2.6 g/dL_ (calc ) 1.9-3. 7 normal Not Available [facility] [address] [place], [place] [address] [address] [place], [address], 02/18/2016 09:59:52 02/16/1902/18/2016 CMP, serum or plasm a albumin/glob ulin ratio 1.5 (calc ) 1.0-2. 5 normal Not Available [facility] [address] [place], [place] [address], [place], [address], 02/18/2016 09:59:52 02/16/1902/18/2016 CMP, serum or plasm a bilirubin, total 0.7 mg/dL 0.2-1. 2 normal Not Available [facility] [address] [place], [address], 02/18/2016 09:59:52 02/16/1902/18/2016 CMP, serum or plasm a alkaline phosphatase 54 U/L 33-130 normal Not Available [facility] [address] [place] [address] [address] [place], [address], 02/18/2016 09:59:52 02/16/1902/18/2016 CMP, serum or plasm a AST 22 U/L 10-35 normal Not Available [facility] [address] [place], [place] [address]y [address] [place], [address], 02/18/2016 09:59:52 02/16/1902/18/2016 CMP, serum or plasm a ALT 32 U/L 6-29 high Not Available [facility] [address] [facility] [address] [place], [address], 02/18/2016 09:59:52 02/16/19 17 02/18/2016 eryth rocyt e sedim entat ion rate by august almaraz metho d sed rate by modified lyndseyren 2 mm/h < or = 30 normal Not Available [facility] [address] [place], [place] [address], [place], [address], 02/18/2016 09:59:53 02/16/19 17 02/19/2016 urina lysis , compl ete color DARK YELLOW yellow normal Not Available [facility] [address] [place], [place] [address]y [address], [place], [address], 02/19/2016 16:55:52 02/16/19 17 02/19/2016 urina lysis , compl ete appearance CLEAR clear normal Not Available [facility] [address] [place], [place] [address] [address] [place], [address], 02/19/2016 16:55:52 02/16/19 17 02/19/2016 urina lysis , compl ete specific gravity 1.018 1.001- 1.035 normal Not Available [facility] [address] [place], [place] [address], [place], [address], 02/19/2016 16:55:52 02/16/19 17 02/19/2016 urina lysis , compl ete pH 6.0 5.0-8. 0 normal Not Available [facility] [address] [place], [place] [address] [address], [place], [address], 02/19/2016 16:55:52 02/16/19 17 02/19/2016 urina lysis , compl ete glucose NEGATI VE negati ve normal Not Available [facility] [address] [place], [place] [address], [place], [address], 02/19/2016 16:55:52 02/16/1902/19/2016 urina lysis , compl ete bilirubin NEGATI VE negati ve normal Not Available [facility] [address] [facility] [address], [place], [address], 02/19/2016 16:55:52 02/16/19 17 02/19/2016 urina lysis , compl ete ketones NEGATI VE negati ve normal Not Available [facility] [address] [facility] [address], [place], [address], 02/19/2016 16:55:52 02/16/19 17 02/19/2016 urina lysis , compl ete occult blood NEGATI VE negati ve normal Not Available [facility] [address] [facility] [address], [place], [address], 02/19/2016 16:55:52 02/16/19 17 02/19/2016 urina lysis , compl ete protein NEGATI VE negati ve normal Not Available [facility] [address], [place], [address], 02/19/2016 16:55:52 02/16/19 17 02/19/2016 urina lysis , compl ete nitrite NEGATI VE negati ve normal Not Available [facility] [address] [place], [place] [address], [place], [address], 02/19/2016 16:55:52 02/16/19 17 02/19/2016 urina lysis , compl ete leukocyte esterase 1+ negati ve abnormal Not Available [facility] [address], [place], [address], 02/19/2016 16:55:52 02/16/19 17 02/19/2016 urina lysis , compl ete WBC 0-5 /hpf < or = 5 normal Not Available [facility] [address] [facility] [address], [place], [address], 02/19/2016 16:55:52 02/16/19 17 02/19/2016 urina lysis , compl ete RBC NONE SEEN /hpf < or = 2 normal Not Available [facility] [address] [place] [address], [address], 02/19/2016 16:55:52 02/16/19 17 02/19/2016 urina lysis , compl ete squamous epithelial cells 0-5 /hpf < or = 5 Not Available [facility] [address] [place] [address], [address], 02/19/2016 16:55:52 02/16/19 17 02/19/2016 urina lysis , compl ete bacteria NONE SEEN /hpf none seen normal Not Available [facility] [address] [place] [address], [address], 02/19/2016 16:55:52 02/16/19 17 02/19/2016 urina lysis , compl ete hyaline cast NONE SEEN /lpf none seen normal Not Available [facility] [address] [place] [address], [address], 02/19/2016 16:55:52 02/16/19 17 02/19/2016 cultu re, urine culture, urine, routine SEE NOTE CULTU RE, URINE , ROUTI NE MICRO NUMBE R: [id number] TEST STATU S: FINAL SPECI MEN SOURC E: URINE SPECI MEN QUALI TY: ADEQU ATE RESUL T: No Growt h Not Available [facility] [address] [place] [address], [address], 02/19/2016 16:55:53 02/16/19 17 02/19/2016 cultu re, urine reflexive urine culture CULTUR E INDICA LASHELL - RESULT S TO FOLLOW Not Available [facility] [address] [place] [address], [place], [address], 02/20/2016 08:18:09 02/16/1902/20/2016 HbA1c (hemo globi n [...] diabe sergio for child linda. Not Available [facility] [address] [place], [address], 02/20/2016 18:02:08 02/16/19 17 02/20/2016 CBC white blood cell count 6.6 thous and/u L 3.8-10 .8 normal Not Available [facility] [address] [place], [address], 02/20/2016 18:02:09 02/16/19 17 02/20/2016 CBC red blood cell count 5.06 bere on/uL 3.80-5 .10 normal Not Available [facility] [address] [place], [address], 02/20/2016 18:02:09 02/16/19 17 02/20/2016 CBC hemoglobin 13.9 g/dL 11.7-1 5.5 normal Not Available [facility] [address] [place], [address], 02/20/2016 18:02:02/16/19 17 02/20/2016 CBC hematocrit 43.5 % 35.0-4 5.0 normal Not Available [facility] [address], [place], [address], 02/20/2016 18:02:02/16/19 17 02/20/2016 CBC MCV 85.9 fL 80.0-1 00.0 normal Not Available [facility] [address] [facility] [address], [place], [address], 02/20/2016 18:02:02/16/19 17 02/20/2016 CBC MCH 27.6 pg 27.0-3 3.0 normal Not Available [facility] [address] [place], [place] [address] [address] [place], [address], 02/20/2016 18:02:02/16/19 17 02/20/2016 CBC MCHC 32.1 g/dL 32.0-3 6.0 normal Not Available [facility] [address] [place], [place] [address] [address] [place], [address], 02/20/2016 18:02:02/16/19 17 02/20/2016 CBC RDW 16.2 % 11.0-1 5.0 high Not Available [facility] [address] [place], [place] [address], [place], [address], 02/20/2016 18:02:02/16/19 17 02/20/2016 CBC platelet count 260 thous and/u L 140-40 0 normal Not Available [facility] [address], [place], [address], 02/20/2016 18:02:02/16/19 17 02/20/2016 CBC MPV 9.1 fL 7.5-11 .5 normal Not Available [facility] [address], [place], [address], 02/20/2016 18:02:02/16/19 17 02/20/2016 CBC absolute neutrophils 3835 cells /uL 1500-7 800 normal Not Available [facility] [address], [place], [address], 02/20/2016 18:02:02/16/19 17 02/20/2016 CBC absolute lymphocytes 2138 cells /uL 850-39 00 normal Not Available [facility] [address], [place], [address], 02/20/2016 18:02:02/16/19 17 02/20/2016 CBC absolute monocytes 370 cells /uL 200-95 0 normal Not Available [facility] [address], [place], [address], 02/20/2016 18:02:02/16/19 17 02/20/2016 CBC absolute eosinophils 224 cells /uL 15-500 normal Not Available [facility] [address], [place], [address], 02/20/2016 18:02:02/16/19 17 02/20/2016 CBC absolute basophils 33 cells /uL 0-200 normal Not Available [facility] [address], [place], [address], 02/20/2016 18:02:02/16/19 17 02/20/2016 CBC neutrophils 58.1 % normal Not Avai lable [facility] [address], [place], [address], 02/20/2016 18:02:02/16/19 17 02/20/2016 CBC lymphocytes 32.4 % normal Not Avai lable [facility] [address], [place], [address], 02/20/2016 18:02:02/16/19 17 02/20/2016 CBC monocytes 5.6 % normal Not Availa ble [facility] [address], [place], [address], 02/20/2016 18:02:02/16/19 17 02/20/2016 CBC eosinophils 3.4 % normal Not Avai lable [facility] [address], [place], [address], 02/20/2016 18:02:02/16/19 17 02/20/2016 CBC basophils 0.5 % normal Not Availa ble [facility] [address] [facility] [address], [place], [address], 02/20/2016 18:02:02/16/19 17 02/20/2016 1,5-a nhydr ogluc [...] [facility] [address], [place], [address], 02/20/2016 18:02:10 02/16/19 17 02/20/2016 vitam in B12 + folat e, serum or blood vitamin B12 441 pg/mL 200-11 00 normal Not Available [facility] [address], [place], [address], 02/20/2016 18:02:10 02/16/19 17 02/20/2016 vitam in B12 + folat e, serum or blood folate, serum 10.9 NG/mL normal Refer ence Range Low: <3.4 Borde rline : 3.4-5 .4 Vanessa l: >5.4 Not Available [facility] [address] [facility] [address], [place], [address], 02/20/2016 18:02:10 02/16/19 17 02/20/2016 iron + TIBC + kimberley tin, serum iron, total 90 mcg/d L 45-160 normal Not Available [facility] [address] [facility] [address], [place], [address], 02/20/2016 18:02:10 02/16/19 17 02/20/2016 iron + TIBC + kimberley tin, serum iron binding capacity 397 mcg/d L_(ca lc) 250-45 0 normal Not Available [facility] [address] [facility] [address], [place], [address], 02/20/2016 18:02:10 02/16/19 17 02/20/2016 iron + TIBC + kimberley tin, serum % saturation 23 %_(ca lc) 11-50 normal Not Available [facility] [address] [facility] [address] [place], [address], 02/20/2016 18:02:10 02/16/1902/20/2016 iron + TIBC + kimberley tin, serum ferritin 26 NG/mL 10-232 normal Not Available [facility] [address] [facility] [address], [place], [address], 02/20/2016 18:02:10 02/16/19 17 02/20/2016 lipid panel , serum cholesterol, total 130 mg/dL 125-20 0 normal Not Available [facility] [facility] [address], [place], [address], 02/20/2016 18:02:11 02/16/1902/20/2016 lipid panel , serum HDL cholesterol 47 mg/dL > or = 46 normal Not Available [facility] [address] [facility] [address], [place], [address], 02/20/2016 18:02:11 02/16/19 17 02/20/2016 lipid panel , serum triglyceride s 92 mg/dL <150 normal Not Available [facility] [address] [facility] [address], [place], [address], 02/20/2016 18:02:11 02/16/1902/20/2016 lipid panel , serum direct LDL 70 mg/dL <130 normal Kirk able range <100 mg/dL for patie nts with CHD or diabe sergio and <70 mg/dL for diabe tic patie nts with known heart disea se. Not Available [facility] [address] [facility] [address] [facility], [place], [address], 02/20/2016 18:02:11 02/16/1902/20/2016 lipid panel , serum chol/HDLC ratio 2.8 (calc ) < or = 5.0 normal Not Available [facility] [address] [facility] [address] [place], [address], 02/20/2016 18:02:11 02/16/1902/20/2016 lipid panel , serum non HDL cholesterol 83 mg/dL _(maximo c) normal Targe t for non-H DL troy stero l is 30 mg/dL highe r than LDL troy stero l targe t. Not Available [facility] [address] [facility] [address], [place], [address], 02/20/2016 18:02:11 02/16/19 17 02/17/2016 venip unctu re results Compl ete Not Available [facility] [address], [place], [address], 02/17/2016 15:55:13 02/21/19 17 02/23/2016 fecal occul t blood , immun oassa y, stool immunoassay occult blood NEGATI VE Not Available [facility] [address] [facility] [address], [place], [address], 02/23/2016 08:43:53 02/21/19 17 02/24/2016 micro album in/cr eatin ine, ratio , 24h urine microalbumin , 24 hour ur 7 mg/24 _h <30 normal Not Available [facility] [address] [facility] [address], [place], [address], 02/24/2016 13:00:54 02/21/19 17 02/24/2016 micro album [...] ory. Not Available [facility] [address] [facility] [address], [place], [address], 02/24/2016 13:00:54 02/21/19 17 02/24/2016 micro album in/cr eatin ine, ratio , 24h urine creatinine, 24 hour urine 1.45 g/24_ h 0.63-2 .50 normal Not Available [facility] [address], [place], [address], 02/24/2016 13:00:54 03/27/19 17 03/28/2016 CBC WBC 6.1 x10^3 /uL 4.4-11 .0 Not Available [facility] [address], [place], [address], 03/28/2016 12:28:12 03/27/19 17 03/28/2016 CBC RBC 4.84 x10^6 /uL 4.50-5 .10 Not Available [facility] [address], [place], [address], 03/28/2016 12:28:12 03/27/19 17 03/28/2016 CBC HGB 13.5 g/dL 12.3-1 5.3 Not Available [facility] [address] [place] [address] [address], [place], [address], 03/28/2016 12:28:12 03/27/19 17 03/28/2016 CBC HCT 41.5 % 35.9-4 4.6 Not Available [facility] [address], [place], [address], 03/28/2016 12:28:12 03/27/19 17 03/28/2016 CBC MCV 85.6 fL 80.0-9 6.0 Not Available [facility] [address] [place] [address] [address], [place], [address], 03/28/2016 12:28:12 03/27/19 17 03/28/2016 CBC MCH 27.9 pg 27.5-3 3.2 Not Available [facility] [address], [place], [address], 03/28/2016 12:28:12 03/27/19 17 03/28/2016 CBC MCHC 32.5 g/dL 33.4-3 5.5 low Not Available [facility] [address], [place], [address], 03/28/2016 12:28:12 03/27/19 17 03/28/2016 CBC RDW 14.2 % 11.6-1 3.7 high Not Available [facility], [place], [address], 03/28/2016 12:28:12 03/27/19 17 03/28/2016 CBC plt 249 x10^3 /uL 150-45 0 Not Available [facility], [place], [address], 03/28/2016 12:28:12 03/27/19 17 03/28/2016 CBC MPV 9.6 fL 7.4-10 .4 Not Available [facility], [place], [address], 03/28/2016 12:28:12 03/27/19 17 03/28/2016 CBC neut # 3.4 x10^3 /uL 1.5-7. 2 Not Available [facility], [place], [address], 03/28/2016 12:28:12 03/27/19 17 03/28/2016 CBC lymph# 1.9 x10^3 /uL 0.7-4. 9 Not Available [facility] [address] [place] [address] [address], [place], [address], 03/28/2016 12:28:12 03/27/19 17 03/28/2016 CBC mono# 0.5 x10^3 /uL 0.1-0. 9 Not Available [facility], [place], [address], 03/28/2016 12:28:12 03/27/19 17 03/28/2016 CBC eos # 0.2 x10^3 /uL 0.0-0. 4 Not Available [facility] [address], [place], [address], 03/28/2016 12:28:12 03/27/19 17 03/28/2016 CBC baso # 0.1 x10^3 /uL 0.0-0. 2 Not Available [facility] [address], [place], [address], 03/28/2016 12:28:12 03/27/19 17 03/28/2016 CBC neut % 55.5 % 42.2-7 5.2 Not Available [facility] [address], [place], [address], 03/28/2016 12:28:12 03/27/19 17 03/28/2016 CBC mono% 7.9 % 1.7-9. 3 Not Available [facility], [place], [address], 03/28/2016 12:28:12 03/27/1903/28/2016 CBC eos% 3.8 % 1.0-6. 0 Not Available [facility], [place], [address], 03/28/2016 12:28:12 03/27/1903/28/2016 CBC baso% 0.9 % 0.0-4. 0 Not Available [facility] [address], [place], [address], 03/28/2016 12:28:12 03/27/1903/28/2016 CBC lymph % 31.9 % 20.5-5 1.1 Not Available [facility] [address], [place], [address], 03/28/2016 12:28:12 03/27/19 17 03/28/2016 eryth rocyt e sedim entat ion rate by august rgren metho d sed rate 11 mm/HR 0-20 Not Available [facility] [address] [facility] [address], [place], [address], 03/28/2016 12:28:13 03/27/19 17 03/28/2016 CMP, serum or plasm a sodium 139 mmol/ L 136-14 5 Not Available [facility] [address] [place], [place] [address]y [address], [place], [address], 03/28/2016 12:28:13 03/27/19 17 03/28/2016 CMP, serum or plasm a potassium 4.2 mmol/ L 3.6-5. 2 Not Available [facility] [address] [place], [place] [address]y [address] [place], [address], 03/28/2016 12:28:13 03/27/19 17 03/28/2016 CMP, serum or plasm a chloride 102 mmol/ L 98-108 Not Available [facility] [address] [place], [place] [address]y [address] [place], [address], 03/28/2016 12:28:13 03/27/19 17 03/28/2016 CMP, serum or plasm a carbon dioxide 29 mmol/ L 18-33 Not Available [facility] [address] [place], [place] [address]y [address] [place], [address], 03/28/2016 12:28:13 03/27/1903/28/2016 CMP, serum or plasm a glucose 119 mg/dL 65-99 high Not Available [facility] [address] [facility] [address] [place], [address], 03/28/2016 12:28:13 03/27/19 17 03/28/2016 CMP, serum or plasm a BUN 23 mg/dL 7-18 high Not Available [facility] [address] [facility] [address] [place], [address], 03/28/2016 12:28:13 03/27/19 17 03/28/2016 CMP, serum or plasm a creatinine 0.8 mg/dL 0.8-1. 3 Not Available [facility] [address] [place], [place] [address], [place], [address], 03/28/2016 12:28:13 03/27/1903/28/2016 CMP, serum or plasm a BUN/creat ratio 28.8 calc 10.0-2 5.0 high Not Available [facility] [address] [place], [place] [address]y [address], [place], [address], 03/28/2016 12:28:13 03/27/19 17 03/28/2016 CMP, serum or plasm a calcium 9.7 mg/dL 8.5-10 .6 Not Available [facility] [address] [place], [place] [address]y [address], [place], [address], 03/28/2016 12:28:13 03/27/19 17 03/28/2016 CMP, serum or plasm a total protein 6.8 g/dL 6.4-8. 1 Not Available [facility] [address] [place], [place] [address], [place], [address], 03/28/2016 12:28:13 03/27/19 17 03/28/2016 CMP, serum or plasm a albumin 4.2 g/dL 3.3-5. 5 Not Available [facility] [address] [place], [place] [address], [place], [address], 03/28/2016 12:28:13 03/27/1903/28/2016 CMP, serum or plasm a globulin 2.6 g/dL 1.3-4. 0 Not Available [facility] [address] [place], [place] [address]y [address] [place], [address], 03/28/2016 12:28:13 03/27/19 17 03/28/2016 CMP, serum or plasm a A/G ratio 1.6 calc 1.0-2. 8 Not Available [facility] [address] [place] [address], [address], 03/28/2016 12:28:13 03/27/19 17 03/28/2016 CMP, serum or plasm a alk. phosphatase 71 U/L 50-128 Not Available [facility] [address] [place] [address], [address], 03/28/2016 12:28:13 03/27/1903/28/2016 CMP, serum or plasm a ALT (SGPT) 29 U/L 10-47 Not Available [facility] [address] [place] [address], [address], 03/28/2016 12:28:13 03/27/19 17 03/28/2016 CMP, serum or plasm a AST (SGOT) 18 U/L 11-38 Not Available [facility] [address] [place] [address], [address], 03/28/2016 12:28:13 03/27/19 17 03/28/2016 CMP, serum or plasm a total bilirubin 0.52 mg/dL 0.20-1 .60 Not Available [facility] [address] [place] [address], [address], 03/28/2016 12:28:13 03/27/1903/28/2016 CMP, serum or plasm a GFR >60.0 >=60.0 IF PATIE NT IS AFRIC AN AMERI CAN, MULTI PLY RESUL T BY 1.21 Not Available [facility] [address] [place] [address] [address] [place], [address], 03/28/2016 12:28:13 03/27/1903/28/2016 C-mick ctive prote in, quant itati ve, serum or plasm a CRP 0.08 mg/dL 0.02-1 .00 Not Available [facility] [address] [place] [address] [address] [facility], [place], [address], 03/28/2016 12:28:14 03/27/19 17 03/27/2016 venip unctu re results Compl ete Not Available [facility] [address] [place] [address], [address], 03/27/2016 13:15:17 05/19/19 17 05/18/2016 urina lysis , compl ete color YELLOW Not Available [facility] [address] [place] [address], [address], 05/18/2016 19:19:41 05/19/19 17 05/18/2016 urina lysis , compl ete appearance CLEAR clear Not Available [facility] [address] [place] [address], [address], 05/18/2016 19:19:41 05/19/19 17 05/18/2016 urina lysis , compl ete specific gravity 1.023 Not Available [facility] [address] [place] [address], [address], 05/18/2016 19:19:41 05/19/19 17 05/18/2016 urina lysis , compl ete pH 6.0 Not Available [facility] [address] [place] [address], [address], 05/18/2016 19:19:41 05/19/19 17 05/18/2016 urina lysis , compl ete glucose NEGATI VE negati ve Not Available [facility] [address] [place] [address] [address] [place], [address], 05/18/2016 19:19:41 05/19/19 17 05/18/2016 urina lysis , compl ete bilirubin NEGATI VE negati ve Not Available [facility] [address] [place] [address], [address], 05/18/2016 19:19:41 05/19/19 17 05/18/2016 urina lysis , compl ete ketone NEGATI VE negati ve Not Available [facility] [address] [place] [address], [address], 05/18/2016 19:19:41 05/19/19 17 05/18/2016 urina lysis , compl ete blood NEGATI VE negati ve Not Available [facility] [address] [place] [address], [address], 05/18/2016 19:19:41 05/19/19 17 05/18/2016 urina lysis , compl ete protein NEGATI VE negati ve Not Available [facility] [address] [place] [address], [address], 05/18/2016 19:19:41 05/19/19 17 05/18/2016 urina lysis , compl ete urobilinogen NORMAL Not Available [facility] [address] [place] [address], [address], 05/18/2016 19:19:41 05/19/19 17 05/18/2016 urina lysis , compl ete nitrite NEGATI VE negati ve Not Available [facility] [address] [place] [address], [address], 05/18/2016 19:19:41 05/19/19 17 05/18/2016 urina lysis , compl ete leukocytes NEGATI VE negati ve A cultu re will refle x when the follo wing crite marcy is met: posit percy nitri te small leuko cytes or great er or >6 WBC/h pf 4+ bacte marcy on micro scopi c exam any amoun t of yeast on micro scopi c exam. Not Available [facility] [address] [facility] [address] [place], [address], 05/18/2016 19:19:41 05/19/19 17 05/18/2016 HbA1c (hemo globi n A1c), blood estimated average glucose 125.5 mg/dL 97.0-1 40.0 Not Available [facility] [address] [facility] [address] [place], [address], 05/18/2016 20:36:41 05/19/19 17 05/18/2016 HbA1c (hemo [...] OVASC ULAR COMPL ICATI ONS. Not Available [facility] [address] [facility] [address] [place], [address], 05/18/2016 20:36:41 05/19/19 17 05/19/2016 CBC white blood cell count 6.3 thous and/u L 3.8-10 .8 normal Not Available [facility] [address] [place] [address] [address] [place], [address], 05/19/2016 01:49:23 05/19/19 17 05/19/2016 CBC red blood cell count 4.70 bere on/uL 3.80-5 .10 normal Not Available [facility] [address] [facility] [address] [place], [address], 05/19/2016 01:49:23 05/19/19 17 05/19/2016 CBC hemoglobin 13.6 g/dL 11.7-1 5.5 normal Not Available [facility] [address] [place] [address] [address] [place], [address], 05/19/2016 01:49:23 05/19/1905/19/2016 CBC hematocrit 40.2 % 35.0-4 5.0 normal Not Available [facility] [address] [place] [address] [address], [place], [address], 05/19/2016 01:49:23 05/19/1905/19/2016 CBC MCV 85.5 fL 80.0-1 00.0 normal Not Available [facility] [address] [place] [address] [address] [place], [address], 05/19/2016 01:49:23 05/19/1905/19/2016 CBC MCH 28.9 pg 27.0-3 3.0 normal Not Available [facility] [address] [place] [address] [address] [place], [address], 05/19/2016 01:49:23 05/19/1905/19/2016 CBC MCHC 33.8 g/dL 32.0-3 6.0 normal Not Available [facility] [address] [place] [address] [address] [place], [address], 05/19/2016 01:49:23 05/19/1905/19/2016 CBC RDW 13.0 % 11.0-1 5.0 normal Not Available [facility] [address] [place] [address] [address] [place], [address], 05/19/2016 01:49:23 05/19/1905/19/2016 CBC platelet count 259 thous and/u L 140-40 0 normal Not Available [facility] [address] [place] [address] [address], [place], [address], 05/19/2016 01:49:23 05/19/1905/19/2016 CBC MPV 11.2 fL 7.5-12 .5 normal Not Available [facility] [address], [place], [address], 05/19/2016 01:49:23 05/19/19 17 05/19/2016 CBC absolute neutrophils 3686 cells /uL 1500-7 800 normal Not Available [facility] [address], [place], [address], 05/19/2016 01:49:23 05/19/19 17 05/19/2016 CBC absolute lymphocytes 1922 cells /uL 850-39 00 normal Not Available [facility] [address], [place], [address], 05/19/2016 01:49:23 05/19/1905/19/2016 CBC absolute monocytes 410 cells /uL 200-95 0 normal Not Available [facility] [address] [place], [place] [address]y [address], [place], [address], 05/19/2016 01:49:23 05/19/1905/19/2016 CBC absolute eosinophils 233 cells /uL 15-500 normal Not Available [facility] [address] [place], [address], 05/19/2016 01:49:23 05/19/1905/19/2016 CBC absolute basophils 50 cells /uL 0-200 normal Not Available [facility] [address] [place], [address], 05/19/2016 01:49:23 05/19/1905/19/2016 CBC neutrophils 58.5 % normal Not Avai [facility]able [facility] [address], [place], [address], 05/19/2016 01:49:23 05/19/19 17 05/19/2016 CBC lymphocytes 30.5 % normal Not Avai lable [facility] [address], [place], [address], 05/19/2016 01:49:23 05/19/19 17 05/19/2016 CBC monocytes 6.5 % normal Not Availa ble [facility] [address] [place], [address], 05/19/2016 01:49:23 05/19/1905/19/2016 CBC eosinophils 3.7 % normal Not Avai [facility]able [facility] [address] [facility] [address], [place], [address], 05/19/2016 01:49:23 05/19/1905/19/2016 CBC basophils 0.8 % normal Not Avail[facility] [address] [facility] [address] [place], [address], 05/19/2016 01:49:23 05/19/1905/21/2016 CMP, serum or plasm a glucose 100 mg/dL 65-99 high Fasti ng refer ence inter inocencio For someo ne witho ut known diabe sergio, a gluco se value betwe en 100 and 125 mg/dL is consi stent with predi abete s and shoul d be confi rmed with a follo w-up test. Not Available [facility] [address] [facility] [address] [place], [address], 05/21/2016 12:58:37 05/19/1905/21/2016 CMP, serum or plasm a urea nitrogen (BUN) 25 mg/dL 7-25 normal Not Available [facility] [address] [facility] [address], [place], [address], 05/21/2016 12:58:37 05/19/1905/21/2016 CMP, serum or plasm a creatinine 0.73 mg/dL 0.50-1 .05 normal For patie nts >49 years of age, the refer ence limit for Creat inine is appro ximat mark 13% highe r for peopl e ident ified as Afric an-Am hong n. Not Available [facility] [address] [place], [place] [address]y [address] [place], [address], 05/21/2016 12:58:37 05/19/19 17 05/21/2016 CMP, serum or plasm a eGFR non-afr. mauritian 91 mL/mi n/1.7 3m2 > or = 60 normal Not Available [facility] [address] [place], [place] [address] [address] [place], [address], 05/21/2016 12:58:37 05/19/19 17 05/21/2016 CMP, serum or plasm a eGFR 106 mL/mi n/1.7 3m2 > or = 60 normal Not Available [facility] [address] [place] [address] [address] [place], [address], 05/21/2016 12:58:37 05/19/19 17 05/21/2016 CMP, serum or plasm a BUN/creatini ne ratio NOT APPLIC ABLE (calc ) 6-22 Not Available [facility] [address] [place], [place] [address]y [address] [place], [address], 05/21/2016 12:58:37 05/19/19 17 05/21/2016 CMP, serum or plasm a sodium 138 mmol/ L 135-14 6 normal Not Available [facility] [address] [place] [address] [address] [place], [address], 05/21/2016 12:58:37 05/19/19 17 05/21/2016 CMP, serum or plasm a potassium 4.3 mmol/ L 3.5-5. 3 normal Not Available [facility] [address] [place], [place] [address] [address] [place], [address], 05/21/2016 12:58:37 05/19/19 17 05/21/2016 CMP, serum or plasm a chloride 102 mmol/ L 98-110 normal Not Available [facility] [address] [place] [address], [address], 05/21/2016 12:58:37 05/19/19 17 05/21/2016 CMP, serum or plasm a carbon dioxide 25 mmol/ L 20-31 normal Not Available [facility] [address] [place] [address], [address], 05/21/2016 12:58:37 05/19/19 17 05/21/2016 CMP, serum or plasm a calcium 9.3 mg/dL 8.6-10 .4 normal Not Available [facility] [address] [place] [address], [address], 05/21/2016 12:58:37 05/19/19 17 05/21/2016 CMP, serum or plasm a protein, total 6.8 g/dL 6.1-8. 1 normal Not Available [facility] [address] [place] [address], [address], 05/21/2016 12:58:37 05/19/19 17 05/21/2016 CMP, serum or plasm a albumin 4.2 g/dL 3.6-5. 1 normal Not Available [facility] [address] [place] [address], [address], 05/21/2016 12:58:37 05/19/19 17 05/21/2016 CMP, serum or plasm a globulin 2.6 g/dL_ (calc ) 1.9-3. 7 normal Not Available [facility] [address] [place] [address], [address], 05/21/2016 12:58:37 05/19/19 17 05/21/2016 CMP, serum or plasm a albumin/glob ulin ratio 1.6 (calc ) 1.0-2. 5 normal Not Available [facility] [address] [place] [address], [address], 05/21/2016 12:58:37 05/19/19 17 05/21/2016 CMP, serum or plasm a bilirubin, total 0.7 mg/dL 0.2-1. 2 normal Not Available [facility] [address] [place] [address] [address] [place], [address], 05/21/2016 12:58:37 05/19/19 17 05/21/2016 CMP, serum or plasm a alkaline phosphatase 50 U/L 33-130 normal Not Available [facility] [address] [place] [address], [address], 05/21/2016 12:58:37 05/19/19 17 05/21/2016 CMP, serum or plasm a AST 21 U/L 10-35 normal Not Available [facility] [address] [place] [address], [address], 05/21/2016 12:58:37 05/19/19 17 05/21/2016 CMP, serum or plasm a ALT 30 U/L 6-29 high Not Available [facility] [address] [place] [address], [address], 05/21/2016 12:58:37 05/19/1905/21/2016 iron + TIBC + kimberley tin, serum iron, total 66 mcg/d L 45-160 normal Not Available [facility] [address] [place] [address] [address] [place], [address], 05/21/2016 12:58:37 05/19/1905/21/2016 iron + TIBC + kimberley tin, serum iron binding capacity 434 mcg/d L_(ca lc) 250-45 0 normal Not Available [facility] [address] [place] [address], [address], 05/21/2016 12:58:37 05/19/19 17 05/21/2016 iron + TIBC + kimberley tin, serum % saturation 15 %_(ca lc) 11-50 normal Not Available [facility] [address] [facility] [address], [place], [address], 05/21/2016 12:58:37 05/19/19 17 05/21/2016 iron + TIBC + kimberley tin, serum ferritin 18 NG/mL 10-232 normal Not Available [facility] [address] [facility] [address], [place], [address], 05/21/2016 12:58:37 05/19/19 17 05/21/2016 lipid panel , serum cholesterol, total 126 mg/dL 125-20 0 normal Not Available [facility] [address] [facility] [address], [place], [address], 05/21/2016 12:58:38 05/19/19 17 05/21/2016 lipid panel , serum HDL cholesterol 51 mg/dL > or = 46 normal Not Available [facility] [address] [facility] [address], [place], [address], 05/21/2016 12:58:38 05/19/19 17 05/21/2016 lipid panel , serum triglyceride s 56 mg/dL <150 normal Not Available [facility] [address] [facility] [address], [place], [address], 05/21/2016 12:58:38 05/19/1905/21/2016 lipid panel , serum direct LDL 73 mg/dL <130 normal Kirk able range <100 mg/dL for patie nts with CHD or diabe sergio and <70 mg/dL for diabe tic patie nts with known heart disea se. Not Available [facility] [address] [facility] [address], [place], [address], 05/21/2016 12:58:38 05/19/1905/21/2016 lipid panel , serum chol/HDLC ratio 2.5 (calc ) < or = 5.0 normal Not Available [facility] [address] [facility] [address] [place], [address], 05/21/2016 12:58:38 05/19/19 17 05/21/2016 lipid panel , serum non HDL cholesterol 75 mg/dL _(maximo c) normal Targe t for non-H DL troy stero l is 30 mg/dL highe r than LDL troy stero l targe t. Not Available [facility] Services [address] [facility] [address], [place], [address], 05/21/2016 12:58:38 05/19/19 17 05/21/2016 rf (rheu matoi d facto r), serum rheumatoid factor 5 IU/mL <14 normal Not Available [facility] [address] [facility] [address] [place], [address], 05/21/2016 12:58:39 05/19/19 17 05/21/2016 1,5-a nhydr [...] asing above 180 mg/dL . Not Available [facility] [address] [facility] [address], [place], [address], 05/21/2016 12:58:39 05/19/19 17 05/18/2016 venip unctu re results Compl ete Not Available [facility] [address], [place], [address], 05/18/2016 10:30:06 06/20/19 17 06/20/2016 CBC WBC 7.7 x10^3 /uL 4.4-11 .0 Not Available [facility] [address] [place] [address] [address], [place], [address], 06/20/2016 09:58:20 06/20/1906/20/2016 CBC RBC 4.74 x10^6 /uL 4.50-5 .10 Not Available [facility] [address] [place], [place] [address]y [address], [place], [address], 06/20/2016 09:58:20 06/20/1906/20/2016 CBC HGB 13.5 g/dL 12.3-1 5.3 Not Available [facility] [address] [place], [place] [address]y [address] [place], [address], 06/20/2016 09:58:20 06/20/1906/20/2016 CBC HCT 41.8 % 35.9-4 4.6 Not Available [facility] [address] [place], [place] [address]y [address], [place], [address], 06/20/2016 09:58:20 06/20/1906/20/2016 CBC MCV 88.2 fL 80.0-9 6.0 Not Available [facility] [address] [place], [place] [address]y [address], [place], [address], 06/20/2016 09:58:20 06/20/1906/20/2016 CBC MCH 28.5 pg 27.5-3 3.2 Not Available [facility] [address] [place] [address] [address], [place], [address], 06/20/2016 09:58:20 06/20/1906/20/2016 CBC MCHC 32.4 g/dL 33.4-3 5.5 low Not Available [facility] [address], [place], [address], 06/20/2016 09:58:20 06/20/1906/20/2016 CBC RDW 13.6 % 11.6-1 5.0 Not Available [facility], [place], [address], 06/20/2016 09:58:20 06/20/1906/20/2016 CBC plt 271 x10^3 /uL 150-45 0 Not Available [facility], [place], [address], 06/20/2016 09:58:20 06/20/1906/20/2016 CBC MPV 9.6 fL 7.4-10 .4 Not Available [facility] [address] [place] [address] [address], [place], [address], 06/20/2016 09:58:20 06/20/1906/20/2016 CBC neut # 4.7 x10^3 /uL 1.5-7. 2 Not Available [facility], [place], [address], 06/20/2016 09:58:20 06/20/1906/20/2016 CBC lymph# 2.1 x10^3 /uL 0.7-4. 9 Not Available [facility], [place], [address], 06/20/2016 09:58:20 06/20/1906/20/2016 CBC mono# 0.5 x10^3 /uL 0.1-0. 9 Not Available [facility], [place], [address], 06/20/2016 09:58:20 06/20/1906/20/2016 CBC eos # 0.3 x10^3 /uL 0.0-0. 4 Not Available [facility] [address], [place], [address], 06/20/2016 09:58:20 06/20/19 17 06/20/2016 CBC baso # 0.1 x10^3 /uL 0.0-0. 2 Not Available [facility] [address], [place], [address], 06/20/2016 09:58:20 06/20/1906/20/2016 CBC neut % 61.0 % 42.2-7 5.2 Not Available [facility], [place], [address], 06/20/2016 09:58:20 06/20/1906/20/2016 CBC mono% 6.0 % 1.7-9. 3 Not Available [facility] [address], [place], [address], 06/20/2016 09:58:20 06/20/1906/20/2016 CBC eos% 4.5 % 1.0-6. 0 Not Available [facility], [place], [address], 06/20/2016 09:58:20 06/20/1906/20/2016 CBC baso% 0.7 % 0.0-4. 0 Not Available [facility] [address], [place], [address], 06/20/2016 09:58:20 06/20/1906/20/2016 CBC lymph % 27.8 % 20.5-5 1.1 Not Available [facility] [address], [place], [address], 06/20/2016 09:58:20 06/20/1906/20/2016 CMP, serum or plasm a glucose 141 mg/dL 65-99 high Fasti ng refer ence inter inocencio For someo ne witho ut known diabe sergio, a gluco se value >125 mg/dL indic ates that they may have diabe sergio and this shoul d be confi rmed with a follo w-up test. Not Available [facility] [address], [place], [address], 06/20/2016 12:34:33 06/20/1906/20/2016 CMP, serum or plasm a urea nitrogen (BUN) 19 mg/dL 7-25 normal Not Available [facility] [address], [place], [address], 06/20/2016 12:34:33 06/20/1906/20/2016 CMP, serum or plasm a creatinine 0.91 mg/dL 0.50-1 .05 normal For patie nts >49 years of age, the refer ence limit for Creat inine is appro ximat mark 13% highe r for peopl e ident ified as Afric an-Am hong n. Not Available [facility] [address], [place], [address], 06/20/2016 12:34:33 06/20/1906/20/2016 CMP, serum or plasm a eGFR non-afr. mauritian 70 mL/mi n/1.7 3m2 > or = 60 normal Not Available [facility] [address], [place], [address], 06/20/2016 12:34:33 06/20/1906/20/2016 CMP, serum or plasm a eGFR 81 mL/mi n/1.7 3m2 > or = 60 normal Not Available [facility] [address], [place], [address], 06/20/2016 12:34:33 06/20/19 17 06/20/2016 CMP, serum or plasm a BUN/creatini ne ratio NOT APPLIC ABLE (calc ) 6-22 Not Available [facility] [address] [place] [address] [address] [place], [address], 06/20/2016 12:34:33 06/20/19 17 06/20/2016 CMP, serum or plasm a sodium 139 mmol/ L 135-14 6 normal Not Available [facility] [address] [place] [address] [address] [place], [address], 06/20/2016 12:34:33 06/20/1906/20/2016 CMP, serum or plasm a potassium 4.4 mmol/ L 3.5-5. 3 normal Not Available [facility] [address] [place] [address], [address], 06/20/2016 12:34:33 06/20/19 17 06/20/2016 CMP, serum or plasm a chloride 100 mmol/ L 98-110 normal Not Available [facility] [address] [place] [address] [address] [place], [address], 06/20/2016 12:34:33 06/20/19 17 06/20/2016 CMP, serum or plasm a carbon dioxide 33 mmol/ L 20-31 high Not Available [facility] [address] [place] [address] [address] [place], [address], 06/20/2016 12:34:33 06/20/1906/20/2016 CMP, serum or plasm a calcium 10.0 mg/dL 8.6-10 .4 normal Not Available [facility] [address] [place] [address] [address] [place], [address], 06/20/2016 12:34:33 06/20/19 17 06/20/2016 CMP, serum or plasm a protein, total 6.8 g/dL 6.1-8. 1 normal Not Available [facility] [address] [place] [address], [address], 06/20/2016 12:34:33 06/20/19 17 06/20/2016 CMP, serum or plasm a albumin 4.2 g/dL 3.6-5. 1 normal Not Available [facility] [address] [place] [address], [address], 06/20/2016 12:34:33 06/20/19 17 06/20/2016 CMP, serum or plasm a globulin 2.6 g/dL_ (calc ) 1.9-3. 7 normal Not Available [facility] [address] [place] [address], [address], 06/20/2016 12:34:33 06/20/19 17 06/20/2016 CMP, serum or plasm a albumin/glob ulin ratio 1.6 (calc ) 1.0-2. 5 normal Not Available [facility] [address] [place] [address], [address], 06/20/2016 12:34:33 06/20/1906/20/2016 CMP, serum or plasm a bilirubin, total 0.5 mg/dL 0.2-1. 2 normal Not Available [facility] [address] [place] [address], [address], 06/20/2016 12:34:33 06/20/1906/20/2016 CMP, serum or plasm a alkaline phosphatase 61 U/L 33-130 normal Not Available [facility] [address] [place] [address], [address], 06/20/2016 12:34:33 06/20/19 17 06/20/2016 CMP, serum or plasm a AST 25 U/L 10-35 normal Not Available [facility] [address] [place] [address], [place], [address], 06/20/2016 12:34:33 06/20/19 17 06/20/2016 CMP, serum or plasm a ALT 35 U/L 6-29 high Not Available [facility] [address] [place] [address] [address] [place], [address], 06/20/2016 12:34:33 06/20/19 17 06/20/2016 C-mick ctive prote in, quant itati ve, serum or plasm a C-reactive protein <0.10 mg/dL <0.80 normal Pleas e be advis ed that patie nts takin g Carbo xypen icill ins may exhib it false ly decre ased C-Belton ctive Prote in level s due to an roosevelt tical inter feren ce in this assay . Not Available [facility] [address] [place] [address], [address], 06/20/2016 12:34:33 06/20/19 17 06/20/2016 eryth rocyt e sedim entat ion rate by august almaraz metho d sed rate by modified lyndseyren 2 mm/h < or = 30 normal Not Available [facility] [address] [place] [address] [address] [place], [address], 06/20/2016 12:34:34 06/20/19 17 06/19/2016 venip unctu re results Compl ete Not Available [facility] [address] [place] [address] [address] [place], [address], 06/19/2016 12:21:17 04/10/19 17 04/10/2016 MAMMO , scree kevin, digit al, bilat eral No observ ation record ed. [facility] (Radiology) [address], [place], [address], 06/26/2016 14:00:06 04/10/19 17 04/10/2016 bone densi ty study No observ ation record ed. [address] [facility] ([facility]iology) [address], [place], [address], 06/26/2016 14:00:06 04/10/19 17 04/10/2016 bone densi ty study No observ ation record ed. [place] [address] [employer] [address], [place], [address], 06/26/2016 14:00:06 04/18/19 17 04/10/2016 dual energ y x-ray absor ptiom etry No observ ation record ed. [address] [facility] ([facility]) [address] [facility] [address], [place], [address], 06/26/2016 14:00:06 06/28/19 17 elect rocar diogr am No observ ation record ed. flemoine Not Available 2016 18:03:08 Result Notes None recorded. Problems Name Problem SNOMED Code Status Onset Date Resolution Date Notes Provider Name and Address Organization Details Recorded Time Knee pain Completed 05/03/2014 Melodie willard [facility], [facility] 6 15:12:08 Multiple complicatio ns of type II diabetes mellitus Active Melodie willard [facility], [facility] 6 15:12:08 Sciatica 70882113 Completed 05/03/2014 Melodie willard [facility], [facility] 6 15:12:08 Essential hypertensio n 46001992 Completed 06/27/2016 Rakesh Clark Jr, MD [address] [address], [place], [address] [place] [address] Physician Group, [facility] 7 14:59:25 Obesity 206246174 Active Melodie willard [facility], [facility] 6 15:12:08 Sinusitis 75431803 Completed 05/03/2014 Melodie willard [facility], [facility] 6 15:12:08 Tendinitis of finger 062895576 Completed 05/03/2014 [facility] 6 15:12:08 Cellulitis of lower limb 983882171 Completed 05/03/2014 [facility] 6 15:12:08 Herpes zoster 1625981 Completed 05/03/2014 Melodie Carey montse, [facility], [facility] 6 15:12:08 Generalized arthritis 351972699 [facility] 6 15:12:08 Psoriasis with arthropathy Active Rupesh hunter, [facility] [address], [place], [address] [place] [address] 6 15:41:47 Dermatophyt osis 42406089 Completed 05/03/2014 [facility] 6 15:12:08 Depressive disorder 73404783 Active [facility] 6 15:12:08 Hyperlipide murphy 51316350 [facility] 6 15:12:08 Bursitis of shoulder 270550423 Completed 06/27/2016 Rakesh Clark Jr, MD [address], [place], [address] [place] [address] 7 18:11:38 Disorder of nervous system due to type 2 diabetes mellitus 019473475 Active [facility] 6 15:12:08 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 43621009 Active Melodie Carey montse, [facility], [facility] 6 15:12:08 Menopausal symptom 08898041 Active [facility] 6 15:12:08 Recurrent major depressive episodes 685654849 Active Melodie willard, [facility], [facility] 6 15:12:08 Manic bipolar I disorder 13307159 Active Melodie willard, [facility], [facility] 6 15:12:08 Anemia caused by medication 603217271 Active Melodie willard, [facility], [facility] 6 15:12:08 Anemia 944083592 Active Melodie willard, [facility], [facility] 6 15:12:08 Chronic pain 79102483 Active Melodie willard, [facility], [facility] 6 15:12:08 Herniation of rectum into vagina 056140864 Active Melodie willard, [facility], [facility] 6 15:12:08 Otalgia 74308994 [facility] 6 15:12:08 Bipolar disorder 92284794 [facility] 6 15:12:08 Sciatica 34898948 [facility] 6 15:12:08 Peripheral neuropathic pain 160997667 [facility] 6 15:12:08 Iron deficiency anemia 82248612 Active 2016 Rakesh Clark Jr, MD [address], [place], [address], [facility], [facility] 7 17:04:22 Urinary incontinenc e 716517145 Active 2016 Rakesh Clark Jr, MD [address], [place], [address], [facility], [facility] 7 17:04:24 Hypertensiv e disorder 88892836 Active 2016 Rakesh Clark Jr, MD [address], [place], [address], [facility], [facility] 7 01:33:49 Gastro-esop hageal reflux disease with esophagitis 848257567 Active 2016 Rakesh Clark Jr, MD [address] [facility] [address], [place], [address] - [facility], [facility] 17:08:23 Problem Notes Documentation Provider Name and Address Organization Details Recorded Time Twitchell Operator Consult Note : [facility] ? [address] [facility] [address]ICANDICEVIKYKELLY (id #[id number], : 1960) [facility] [address] [facility] [address] [place] [address] , Date: 04/02/2016RE: Kelly Drake, : 1960, PT ID #[id number] Islas MD, I would like to thank [...] and low back. 04/02/2016 - 03:40PM - [facility] History of Present IllnessRheumatology GeneralReported bypatient.Reason for [...] syringe(s) ? Refills: 1 ? [email or web address] [email or web address]) CBC W/ AUTODIFF, COMPLETE BLOOD COUNT -?To [...] medications. Next labs with follow-up appointment.[id number]: Other board certified orthodontist (current) drug therapy DiscussionPatient InstructionsPatient Instructions call us if condition worsens Discussion NotesPatient aware of issues with biologics such as stopping medication/calling us if any infections arise, also must stop biologic prior to surgery ( should call us if surgery planned), aware of cancers such as lymphoma, skin cancers, etc.. Return to Office to see Rakesh Clark Jr, MD for BLOCK at [address] on or around 05/26/2016 Rakesh Clark Jr, MD for WELCOME TO MEDICARE [address] on 05/30/2016 at 10:15 AM JOSETTE Lowe for ESTABLISHED OV 20 at [facility] on 07/10/2016 at 02:00 PM JOSETTE Lowe [address], [place], [address], [employer] [place] [employer], [employer] 06/26/2016 14:00:07 Procedures Surgical History Date Name Laterality Status Provider Name and Address Organization Details Recorded Time 06/28/19 17 Quality Pain Screening No Pain completed Rakesh Clark Jr, MD [address], [place], [address], [employer] [place] [employer] [facility], [employer] 06/27/2016 14:51:17 06/28/19 17 Quality Functional Assessment completed Rakesh Clark Jr, MD [address], [place], [address], [employer] [place] [employer] [facility], [employer] 06/27/2016 14:51:17 06/28/19 17 Quality Medication Reviewed and Updated completed Rakesh Clark Jr, MD [address], [place], [address], [employer] [place] [employer] [facility], [employer] 06/27/2016 14:51:17 06/28/19 17 Quality (DM or HTN) BP Diastolic < 80 completed Rakesh Clark Jr, MD [address], [place], [address], [employer] [place] [employer] [facility], [facility] 06/27/2016 14:51:17 06/28/19 17 Medicare AWV Questionnaire completed Rakesh Clark Jr, MD [address], [place], [address], [facility], [facility] 06/27/2016 14:51:16 06/28/19 17 Quality Tobacco Non- User completed Rakesh Clark Jr, MD [address], [place], [address], [facility], [facility] 06/27/2016 14:51:17 06/28/19 17 Quality (DM or HTN ) BP Systolic < 130 completed MD Wale Cobb Jr[address], [place], [address], [facility], [facility] 06/27/2016 14:51:17 06/28/19 17 Quality Fall Risk Assessment Low Risk completed Rakesh Clark Jr, MD [address], [place], [address], [facility], [facility] 06/27/2016 14:51:17 06/28/19 17 Quality BMI with follow up completed Rakesh Clark Jr, MD [address], [place], [address], [facility], [facility] 06/27/2016 14:51:17 06/28/19 17 Quality Advanced Care Planning completed Rakesh Clark Jr, MD [address], [place], [address], [facility], [facility] 06/27/2016 14:51:17 06/28/19 17 Quality Incontinence Screening completed Rakesh Clark Jr, MD [address], [place], [address], [facility], [facility] 06/27/2016 14:51:17 06/28/19 17 Diabetic Foot Exam completed Rakesh Clark Jr, MD [address], [place], [address], [facility], [facility] 06/27/2016 18:35:46 06/27/19 17 Quality Pain Screening No Pain cancelled Jovaniprimo Santy [facility], [facility] 06/26/2016 12:03:03 06/27/19 17 Quality Functional Assessment cancelled Remediosnorberto Foxanayeli [facility], [facility] 06/26/2016 11:57:35 06/27/19 17 Quality Medication Reviewed and Updated cancelled Remediosnorberto Mendez [facility], [facility] 06/26/2016 11:57:34 06/27/19 17 Quality (DM or HTN) BP Diastolic < 80 cancelled Remedios Mendez [facility], [facility] 06/26/2016 11:57:35 06/27/19 17 Medicare AWV Questionnaire cancelled [facility] devensprimo Santy [facility], [facility] 06/26/2016 12:01:38 06/27/19 17 Quality Tobacco Non- User cancelled Remedioseber Mendez [facility], [facility] 06/26/2016 11:57:34 06/27/19 17 Quality (DM or HTN ) BP Systolic < 130 cancelled Remedios Mendez [facility], [facility] 06/26/2016 11:57:35 06/27/19 17 Quality Fall Risk Assessment Low Risk cancelled Remediosnorberto Mendez [facility], [facility] 06/26/2016 11:57:35 06/27/19 17 Quality BMI with follow up cancelled Remediosnorberto Mendez [facility], [facility] 06/26/2016 11:57:35 06/27/19 17 Quality Advanced Care Planning cancelled Remediosnorberto Mendez [facility], [facility] 06/26/2016 11:57:35 06/27/19 17 Quality Incontinence Screening cancelled Remediosnorberto Mendez [facility], [facility] 06/26/2016 11:57:35 05/13/19 17 Vrt fracture assmt via dxa completed Lucretia Madera [facility], [facility] 06/26/2016 12:02:16 05/13/19 17 Bone mineral single photon completed Remedios Mendez [facility], [facility] 06/27/2016 16:04:30 05/13/19 17 Mammogram Screening completed Remedios Mendez [facility], [facility] 06/27/2016 16:04:51 05/13/19 17 Other completed Remedios Mendez [facility], [facility] 06/27/2016 16:05:33 12/03/19 15 Diabetic Foot Exam completed Rakesh Clark Jr, MD [address], [place], [address], [facility] 12/05/2014 20:40:00 05/07/19 14 TCM Initial completed Lorena Bazzi [facility] 05/06/2013 10:27:34 04/02/19 14 Aspiration Major Joint/Bursa completed Rakesh Clark Jr, MD [address], [place], [address], [facility], [facility] 04/05/2013 16:22:28 03/10/19 14 Aspiration Major Joint/Bursa completed Rakesh Clark Jr, MD [address], [place], [address], [facility], [facility] 03/10/2013 17:45:44 03/03/19 14 Aspiration Major Joint/Bursa completed Rakesh Clark Jr, MD [address], [place], [address], [facility], [facility] 03/03/2013 17:51:17 02/16/19 14 Aspiration Major Joint/Bursa completed Rakesh Clark Jr, MD [address], [place], [address], [facility], [facility] 02/16/2013 17:36:32 02/11/19 11 Colonoscopy completed Lucretia Madera [facility], [facility] 06/26/2016 12:02:02 02/11/19 07 Colonoscopy completed Gill Marie [facility], [facility] 02/16/2013 14:55:02 02/11/19 03 Hernia repair completed Gill Marie [facility], [facility] 02/16/2013 15:22:58 02/11/18 89 Cholecystectomy completed Gill Marie [facility], [facility] 02/16/2013 15:22:58 02/11/18 89 [facility], [facility] 02/16/2013 15:22:58 [facility], [facility] 02/16/2013 15:23:18 COLONOSCOPY (SURG) completed Faraz Overton [facility], [facility] 07/23/2013 19:11:11 Imaging Results Imaging Date Name Status LastModified by Organization Details LastModified Time 04/10/2016 MAMMO, screening, digital, bilateral completed [address] [facility] [address] [facility] [address], [place], [address], 06/26/2016 14:00:06 04/10/2016 bone density study completed [address] [facility] [address] [facility] [address], [place], [address], 06/26/2016 14:00:06 04/10/2016 bone density study completed [place] [address], [place], [address], 06/26/2016 14:00:06 04/10/2016 dual energy x-ray absorptiometry completed [address] Imaging ([facility]) [address] [facility] [address], [place], [address], 06/26/2016 14:00:06 06/27/2016 electrocardiogram completed Informa tion not available 06/27/2016 18:03:08 Procedure Notes None recorded. Medical Equipment None Reported. Allergies Allergen ID Allergen Name Allergen Category Reaction Reaction Severity Criticality Documentation Date Start Date Code Code System Note Provider Name and Address Organization Details Recorded Time 947096 Lorabid medicatio n anaphylax is severe Not available 02/16/2013 37660 4 RxNorm aller gy previ ously marke d as life -thre ateni ng Not Available [facility] 4 05:46:19 310524 chlorthal idone medicatio n anaphylax is severe Not available 02/16/2013 2409 RxNorm aller gy previ ously marke d as life -thre ateni ng Not Available [facility] 4 05:46:19 760990 Bactrim medicatio n anaphylax is severe Not available 02/16/2013 97996 9 RxNorm Gill Marie [facility], [facility], [facility] 4 15:02:18 221391 doxycycli ne Not available anaphylax is moderate Not available 02/16/2013 3640 RxNorm Gill Marie [facility], [facility] 4 15:02:18 919680 Norvasc medicatio n anaphylax is moderate Not available 02/16/2013 48323 RxNorm Gill Marie [facility] 4 15:02:18 467763 erythromy sai medicatio n anaphylax is moderate Not available 02/16/2013 4053 RxNorm Gill Marie [facility] 4 15:02:18 520283 prednison e medicatio n other Not available Not available 12/02/2014 8640 RxNorm Monica Cheatham [facility] 5 17:57:49 Medications Name Sig Start Date Stop Date Status Note LastModified by Organization Details LastModified Time compounde d medicatio n APPLY 1-2 GRAMS 3-4 TIMES A DAY NEEDED FOR PAIN 02/26 completed Not Available Not Available Not Available Prescript ion - Prior Authoriza tion Request active Not Available Not Available Not Available atorvasta [...] Available Not Available Not Available Fluarix Quad 9013-1129 (PF) 60 mcg (15 mcg x 4)/0.5 mL IM syringe inject 0.5 millilit er intramus cularly active Not Available Not Available No t Available Vitals Date Recorded Body height Body weight Body mass index (BMI) Heart rate Systolic blood pressure Diastolic blood pressure Provider Name and Address Organization Details Last Updated DateTime 6 162.56 cm 190478. 23258 g 39.8 kg/m2 84 /min 122 mm[Hg] 78 mm[Hg] Melodie Carey [facility] [employer] [facility] [employer] 6 15:15:04 Date Recorded Body height Body weight Body mass index (BMI) Body temperature Heart rate Oxygen saturation Oxygen saturation in Arterial blood by Pulse oximetry Systolic blood pressure Diastolic blood pressure Provider Name and Address Organization Details Last Updated DateTime 7 162.56 cm 329861. 06 g 39.1 kg/m2 98.6 [degF] 112 /min 96 % 96 % 108 mm[Hg] 78 mm[Hg] Lucretia Madera [facility], [facility] 7 17:25:04 Date Recorded Body height Body weight Body mass index (BMI) Heart rate Oxygen saturation Oxygen saturation in Arterial blood by Pulse oximetry Systolic blood pressure Diastolic blood pressure Provider Name and Address Organization Details Last Updated DateTime 7 162.56 cm 046743. 06 g 39.1 kg/m2 88 /min 98 % 98 % 144 mm[Hg] 96 mm[Hg] Melodie Carey [facility], [facility] 7 15:57:00 Date Recorded Body height Provider Name an d Address Organization Details Last Updated DateTime 06/26/2016 162.56 cm Elis Marcello [facility], [facility] 06/26/2016 11:51:02 Date Recorded Respiratory rate Provider Name a nd Address Organization Details Last Updated DateTime 06/26/2016 18 /min Remedios Mendez [facility], [facility] 06/26/2016 11:52:36 Date Recorded Body height Body weight Body mass index (BMI) Oxygen saturation Oxygen saturation in Arterial blood by Pulse oximetry Heart rate Systolic blood pressure Diastolic blood pressure Provider Name and Address Organization Details Last Updated DateTime 7 162.56 cm 339178. 13 g 42.1 kg/m2 100 % 100 % 91 /min 156 mm[Hg] 98 mm[Hg] Melodie Carey [facility], [facility] 7 13:46:40 Date Recorded Body height Respiratory rate Body weight Body mass index (BMI) Body temperature Heart rate Oxygen saturation Oxygen saturation in Arterial blood by Pulse oximetry Systolic blood pressure Diastolic blood pressure Provider Name and Address Organization Details Last Updated DateTime 7 162.56 cm 18 /min 713516. 73 g 41.1 kg/m2 99.2 [degF] 100 /min 98 % 98 % 148 mm[Hg] 99 mm[Hg] Remedios Mendez [facility], [facility] 7 16:15:42 Social History Question Answer Notes LastModified by Organizat ion Details LastModified Time Tobacco Smoking Status Former Smoker Gill willard [facility], [facility] 02/16/2013 15:16:13 Do You Have An Advance Directive? No PT WISHES TO BE RESUSCITATED BUT DOESN'T WANT HER LIFE PROLONGED IF THERE IS NO REASONABLE CHANCE OF FUNCTIONAL RECOVERY Information not available 07/15/2013 How Much Tobacco Do You Chew? None [id number] Information not available 04/02/2016 Which Illicit Or [...] disorder ld2 Not available 15:35:45 Father Arthritis Not avai [...] Cancer (location) N Other Y Gout N Kidney Stones N Measles/Mumps N Sexually Transmitted Disease N Depression Y Prostate Problems N Parkinson's N Paralysis N Headaches/Migraines N Cardiac Pacemaker/defibrillator N Arthritis Y Crohn's Disease N HIV/AIDS N Stroke/TIA N Kidney Disease N Gallbladder disease N High blood pressure Y Alcohol Overuse N Blood Thinner Treatment N Nervous Breakdown N Campos's Esophagus N Urinary Problems N Gastritis N Back pain N Rheumatic Fever N Bleeding Disorder N Osteopenia/Osteoporosis N Asthma Y Ostomies (location) N Seizures N Jaundice N Hepatitis N Past Reacton to [employer] N Cirrhosis N Chicken Pox N Allergies (other than meds) N Thyroid Disease N Emphysema/COPD N Vascular Disease N Rash/Skin Condition Y Amputation (location) N Nerve Damage / Neuropathy Y Sleep disorder/Insomnia N Heart disease / Heart Attack N High Cholesterol Y Colon Problems Y Serious Injuries N Memory Loss/Alzheimer's N Congestive heart failure N Falls N Hormone Replacement N Anemia N Colon Polyps Y Hospitalizations (other than operations) N Diabetes Y Cardiac Arrhythmias /irregular heart rat e N Anxiety/Stress Y Vision Problems N Erectile / Sexual Dysfunction N Sleep Apnea N GERD/Ulcer N Gynecological History Statement/Question Response If Post [...] Jr, MD [address], [place], [address], [facility], [facility] 05/18/2014 19:11:52 influenza, unspecified formulation 02/12/2012 completed Rakesh Clark Jr, MD [address], [place], [address], [facility], [facility] 05/18/2014 19:11:52 tetanus toxoid, unspecified formulation 02/11/2010 completed Rakesh Clark Jr, MD [address], [place], [address], [facility], [facility] 05/18/2014 19:11:52 influenza, unspecified formulation 02/12/2012 completed Rakesh Clark Jr, MD [address], [place], [address], [facility], [facility] 12/16/2013 09:20:00 pneumococcal, unspecified formulation 02/11/2009 completed Rakesh Clark Jr, MD [address], [place], [address], [facility] [employer] [facility], [facility] 12/16/2013 09:20:00 tetanus toxoid, unspecified formulation 02/11/2010 completed Rakesh Clark Jr, MD [address], [place], [address], [facility], [facility] 12/16/2013 09:20:00 Past Encounters Encounter ID Performer Location Encounter Start Date Encounter Closed Date Diagnosis/Indication Diagnosis SNOMED-CT Code Diagnosis ICD10 Code Diagnosis Note [id number] Rakesh Clark Jr, MD [address] [address] 02/16/2013 15:09:24 02/16/2013 17:41:02 Knee pain 51140097 Tenosynovi tis of the knee. Kenalog injection tolerated well. 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 Check A1c. She is unwilling to check sugars so will have to go by A1C and modify treatment accordingl y. Anticipate will have to add something such as a GLP1 or DPP4 inhibitor. GLP1 would probably be most beneficial because of her obesity Sciatica 56870812 Exacer jennifer d by knee pain. Treat knee and see how her back improves. Weight loss would also help Essential hypertension 71342731 Stable. Continue meds. 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 Discussed [...] concerning medical plan of care. Essential hypertension 28113963 Blood pressure under good control. Continue medication s. Encourage patient to continue to monitor blood pressure regularly. Knee pain 93748069 Stabl e. Controlled . Continue current therapy/me dical plan of care. Sciatica 74121290 Stable . Controlled . Continue current therapy/me dical plan of care. Obesity 230724999 Discus sed the diagnosis as well as the risks and benefits of therapy/ev aluation. Patient understand s the risks and benefits of declining or accepting treatment. Please see patient discharge instructio ns for any additional informatio n concerning medical plan of care. Make it some benefit from the Bydureon with her weight loss. [id number] Rakesh Clark Jr, MD [address] [place] [address] 03/03/2013 16:38:47 03/03/2013 17:48:26 Knee pain 88711621 Tolerated injection well. Improvemen t with initial Cortisone injection continue with Hyalgan. Discussed the diagnosis as well as the risks and benefits of therapy/ev aluation. Patient understand s the risks and benefits of declining or accepting treatment. Please see patient discharge instructio ns for any additional informatio n concerning medical plan of care. [id number] Rakesh Clark Jr, MD [address] [place] [address] 03/10/2013 16:58:01 03/11/2013 11:56:47 Knee pain 73296748 Stable. Controlled . Continue current therapy/me dical plan of care.Discu ssed the diagnosis as well as the risks and benefits of therapy/ev aluation. Patient understand s the risks and benefits of declining or accepting treatment. Please see patient discharge instructio ns for any additional informatio n concerning medical plan of care. Essential hypertension 49627238 Blood pressure under good control. Continue medication s. Encourage patient to continue to monitor blood pressure regularly. Sinusitis 63395910 [facility]. Discussed the diagnosis as well as different treatment option, and the risks and benefits of therapy/ev aluation. Reviewed goals of treatment with patient. Patient understand s the risks and benefits of declining or accepting treatment. Please see patient discharge instructio ns for any additional informatio n concerning medical plan of care. Sinus headache 0664335 D iscussed the diagnosis as well as the risks and benefits of therapy/ev aluation. Patient understand s the risks and benefits of declining or accepting treatment. Please see patient discharge instructio ns for any additional informatio n concerning medical plan of care. [id number] Rakesh Clark Jr, MD [address] [place] [id number] 03/17/2013 17:00:19 03/17/2013 18:36:28 Knee pain 57049375 Swelling appears to be from precius Hyalgan injection. Postpone 1 week. No evidence of infection. Feel if I gave her this last dose today it would result in significan t joint infusion [id number] Rakesh Clark Jr, MD [address] [place] [address] 04/02/2013 17:30:36 04/02/2013 19:11:46 Knee pain 97024064 Doing well tolerating injections . Improved Tendinitis of finger 677536993 Medrol dose pack. Rec she use a wrist brace bilaterall y. 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 Leg wrapped with pressure bandage. capillary refill good. tolerated. Continue antibiotic s. 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 Instructed her that she has to wear diabetic shoes. Herpes zoster 0077124 St able. [id number] Rakesh Clark Jr, MD [place] [address] 05/08/2013 08:28:37 05/08/2013 10:09:56 Cellulitis of lower limb 112752858 Improved continue antibiotic s andkeep leg elevated [id number] Daquan Doss MD [facility] [place] [address] 05/14/2013 15:11:57 05/14/2013 16:17:29 Pain of hip region 68287325 [id number] Rakesh Clark Jr, MD [place] [address] 06/10/2013 11:48:39 06/10/2013 14:43:56 Psoriasis 0095522 Discussed the diagnosis as well as the risks and benefits of therapy/ev aluation. Patient understand s the risks and benefits of declining or accepting treatment. Please see patient discharge instructio ns for any additional informatio n concerning medical plan of care. Generalized arthritis 229730865 Discussed the diagnosis as well as the risks and benefits of therapy/ev aluation. Patient understand s the risks and benefits of declining or accepting treatment. Please see patient discharge instructio ns for any additional informatio n concerning medical plan of care. Psoriasis with arthropathy 59519719 Current medical problem uncontroll ed. Discussed the [...] give some Clonazepam to help with this. [id number] Ezra Hernandez DO [place] [id number] [facility] N,[facility] [address] [place] [address] 06/11/2013 13:30:44 06/11/2013 15:34:44 Screening for malignant neoplasm of colon 380849260 has h/o polyps. Doing well. No severe heart nor lung disease. Not on blood thinners. Will proceed with colonoscop y. [id number] Rakesh Clark Jr, MD [place] [address] 07/15/2013 14:12:02 07/15/2013 16:45:49 Adult health examination 824158868 Psoriasis with arthropathy 14537297 Will start her on steroids. Will also go ahead and give her a Kenalog shot at this time. Will add Toradol for her joint discomfort . 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 She has needs [facility] has the anxiety with taking the steroids will add Clonazepam . 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 Encourage the patient to check her blood sugars Essential hypertension 75098037 We will change her from Diovan to Losartan for insurance coverage. 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 Discussed [...] medical plan of care. Psoriasis with arthropathy 77874371 Discussed the diagnosis as well as the risks and benefits of therapy/ev aluation. Patient understand s the risks and benefits of declining or accepting treatment. Please see patient discharge instructio ns for any additional informatio n concerning medical plan of care. Essential hypertension 24981505 Blood pressure under good control. Continue medication s. Encourage patient to continue to monitor blood pressure regularly. Dermatophytosis 94264321 Stable. Controlled . Continue current therapy/me dical plan of care. Depressive disorder 73616463 Stable. Controlled . Continue current therapy/me dical plan of care. Sciatica 37749091 Stable . Controlled . Continue current therapy/me dical plan of care. Hyperlipidemia 34899718 Discussed lipid profile. Discussed risks and benefits of therapy. Lipid not at goal based on current overall risk factors. Discussed risks and benefits of therapy. See patient instructio ns for medical plan of care. 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 Discussed [...] medical plan of care. Psoriasis with arthropathy 33966305 Stable. Controlled . Continue current therapy/me dical plan of care. Essential hypertension 83203717 Blood pressure under good control. Continue medication s. Encourage patient to continue to monitor blood pressure regularly. Depressive disorder 28707630 Discussed the diagnosis as well as the risks and benefits of therapy/ev aluation. Patient understand s the risks and benefits of declining or accepting treatment. Please see patient discharge instructio ns for any additional informatio n concerning medical plan of care. Sciatica 69018566 Stable . Controlled . Continue current therapy/me dical plan of care. Hyperlipidemia 57300452 Stable. Controlled . Continue current therapy/me dical plan of care. [id number] Thierry Poole MD [place] [address] 10/06/2013 13:44:53 10/07/2013 16:41:23 Muscle pain 97469709 [id number] Thierry Poole MD [place] [address] 10/08/2013 09:20:46 10/08/2013 10:37:32 Hematoma 250803188 [id number] Rakesh Clark Jr, MD [place] [address] 12/15/2013 17:18:09 12/15/2013 18:13:37 Sciatica 86587135 Stable. Controlled . Continue current therapy/me dical plan of care. 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 Hemoglobin A1c stable. Reviewed current glycemic goals. Continue current treatment. Psoriasis with arthropathy 94867088 improving. Stable. Controlled . Continue current therapy/me dical plan of care. Essential hypertension 13557923 Blood pressure under good control. Continue medication s. Encourage patient to continue to monitor blood pressure regularly. Depressive disorder 91873931 Stable. Controlled . Continue current therapy/me dical plan of care. Hyperlipidemia 07033628 Discussed lipid profile. Discussed risks and benefits of therapy. Lipid at goal based on current overall risk factors. Continue current therapy. Screening mammography 75554319 [id number] Rakesh Clark Jr, MD [place] [address] 01/19/2014 17:30:38 01/19/2014 19:11:48 Bursitis of shoulder 356551105 Discussed the diagnosis as well as the risks and benefits of therapy/ev aluation. Patient understand s the risks and benefits of declining or accepting treatment. Please see patient discharge instructio ns for any additional informatio n concerning medical plan of care. Acute sinusitis 01859241 Discussed the diagnosis as well as the risks and benefits of therapy/ev aluation. Patient understand s the risks and benefits of declining or accepting treatment. Please see patient discharge instructio ns for any additional informatio n concerning medical plan of care. 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 Hemoglobin A1c stable. Reviewed current glycemic goals. Continue current treatment. Essential hypertension 35203266 Blood pressure not controlled . Low Salt diet encouraged consider adjustment in medical therapy. Encourage patient to monitor blood pressure regularly. Discussed risks and benefits of therapy. See patient instructio ns for medical plan of care. Depressive disorder 56138667 Stable. Controlled . Continue current therapy/me dical plan of care. Hyperlipidemia 68550700 Discussed lipid profile. Discussed risks and benefits of therapy. Lipid at goal based on current overall risk factors. Continue current therapy. Obesity 920675438 Discus sed the diagnosis as well as the risks and benefits of therapy/ev aluation. Patient understand s the risks and benefits of declining or accepting treatment. Please see patient discharge instructio ns for any additional informatio n concerning medical plan of care. Psoriasis with arthropathy 99243628 Stable. Controlled . Continue current therapy/me dical plan of care. Screening for malignant neoplasm of colon 189570657 Screening mammography 56256210 Disorder o f nervous system due to type 2 diabetes mellitus 020331976 chronic, controlled . Continue same, recheck labs as per schedule. Polyneurop athy due to diabetes mellitus 70496001 chronic, controlled . Continue same regimen. Recheck as scheduled Menopausal symptom 14562241 Recurrent major depressive episodes 007902857 chronic, improving. Continue medication regimen as noted and follow up as scheduled. 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 Controlled . Continue current therapy/me dical plan of care. Psoriasis with arthropathy 62190487 Stable. Controlled . Continue current therapy/me dical plan of care. Manic bipo lar I disorder 19588500 Current medical problem uncontroll ed. Discussed the diagnosis as well as different treatment option, and the risks and benefits of therapy/ev aluation. Reviewed goals of treatment with patient. Patient understand s the risks and benefits of declining or accepting treatment. Please see patient discharge instructio ns for any additional informatio n concerning medical plan of care. [id number] Rakesh Clark Jr, MD [address] [address] 12/02/2014 16:48:52 12/07/2014 12:32:24 Adult health examination 347014476 Z00.00 Discussed preventive medicine and screening strategies with patient and family. Continue Yearly evaluation and monitoring . See Out Patient Guide/Summ cricket for plan of care and to see what needed to be ordered to keep patient up to Date. Polyneurop athy due to diabetes mellitus [id number] E11.42 Patient's sugars are not at goal. [...] of care. Increase her Metformin. Essential hypertension 46458505 I10 Blood pressure not controlled . Low Salt diet encouraged consider adjustment in medical therapy. Encourage patient to monitor blood pressure regularly. Discussed risks and benefits of therapy. See patient instructio ns for medical plan of care. Hyperlipidemia 10200827 E78.5 Discussed lipid profile. Discussed risks and benefits of therapy. Lipid at goal based on current overall risk factors. Continue current therapy. Menopausal symptom 93493 002 N95.1 Current medical problem uncontroll ed. 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 She is also going to follow up with her counselor. She is to continue with her antidepres kelvin medication s. Psoriasis with arthropathy 76878493 L40.50 Stable. Improving flare. Continue current therapy/ma dical plan of care. Recurrent major depressive episodes 306832725 F33.1 Discussed the diagnosis as well as [...] current issues. Anemia cau sed by medication [id number] T50.905A follow up with rheumatolo gist. Will also check for iron deficiency and B12 deficiency .Discussed the diagnosis as well as the risks and benefits of therapy/ev aluation. Patient understand s the risks and benefits of declining or accepting treatment. Please see patient discharge instructio ns for any additional informatio n concerning medical plan of care. [id number] Stuart Morrison MD [facility] [address] [place] [address] 12/09/2014 08:28:06 12/09/2014 09:17:06 Psoriasis with arthropathy 43804252 L40.50 Patient experienci ng on going arthralgia [...] sq q 14 days. Long-term drug therapy 110043468 Z79.899 Stop OTC NSAIDs, MTX. Next labs on follow up. Anemia 032328943 D64.9 microcytic , check iron studies, will call with results. [id number] MD EBER Nunez [address] [place] [address] 03/10/2015 13:50:15 03/10/2015 14:12:34 Psoriasis with arthropathy 36324737 L40.50 No active psoriasis, no joint swelling or pain, patient able to function. Her labs are improved, anemia now better, she is off the MTX. Continue Humira sq every 14 days. Return 4 months. Long-term drug therapy 339792822 Z79.899 Tolerating medication s well, no adverse issues. Labs reviewed today. [id number] Kalpesh Kauffman MD [facility] [address] [place] [address] 05/26/2015 12:14:11 05/26/2015 15:34:46 Cough 51089332 R05 Present persistent productive coughing causing Lt TM trauma. Refers not allergic to prednisone but could cause her a manic episode of her Bipolar disorder, but she needs steroid now and refers she can control it with clonazepam . Currently no respirator y distress. Refers good tolerance to zithromax. Counseled about treatment and Breo sample given. Refer for ENT evaluation . [id number] Rakesh Clark Jr, MD [address] [place] [address] 06/28/2015 17:32:48 06/28/2015 18:49:57 Recurrent major depressive episodes 974858831 F33.1 Discussed the diagnosis as well as [...] ty of current issues. Psoriasis with arthropathy 36955847 L40.50 Current medical problem uncontroll ed. Discussed the diagnosis as well as different treatment option, and the risks and benefits of therapy/ev aluation. Reviewed goals of treatment with patient. Patient understand s the risks and benefits of declining or accepting treatment. Please see patient discharge instructio ns for any additional informatio n concerning medical plan of care. Herniation of rectum into vagina 597916783 N81.6 She reports that she saw the [...] n concerning medical plan of care. Otalgia 71899976 H92.02 She was seen in the emergency room/[facility] for left ear pain with bleeding. She [...] care. Polyneurop athy due to diabetes mellitus 14146067 E11.42 Patient's sugars are not at goal. [...] is under. Manic bipo lar I disorder 66112878 F31.10 Discussed the diagnosis as well as the risks and benefits of therapy/ev aluation. Patient understand s the risks and benefits of declining or accepting treatment. Please see patient discharge instructio ns for any additional informatio n concerning medical plan of care. 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 Patient understand s the risks and benefits of declining or accepting treatment. Please see patient discharge instructio ns for any additional informatio n concerning medical plan of care. Hyperlipidemia 73045117 E78.5 Discussed lipid profile. Discussed risks and benefits of therapy. Lipid at goal based on current overall risk factors. Continue current therapy. Essential hypertension 42578006 I10 Blood pressure not controlled . Low Salt diet encouraged consider adjustment in medical therapy. Encourage patient to monitor blood pressure regularly. Discussed risks and benefits of therapy. See patient instructio ns for medical plan of care. [id number] Stuart Morrison MD [facility] [address] [place] [address] 07/08/2015 14:06:44 07/08/2015 14:43:00 Psoriasis with arthropathy 21408316 L40.50 Since last visit she has some [...] weeks for reevaluati on. Long-term drug therapy 839490372 Z79.899 Patient is tolerating current medication s well, not reporting any adverse effects from medication s. Lab results reviewed today with patient, no issues in regards to current medication s. Next labs with follow-up irving Armando is screening [id number] Z11.1 [id number] Rakesh Clark Jr, MD [address] [place] [address] 08/01/2015 15:13:19 08/01/2015 17:12:48 Psoriasis with arthropathy 72209159 L40.50 Current medical problem uncontrol ed. Discussed the diagnosis as well as different treatment option, and the risks and benefits of therapy/ev aluation. Reviewed goals of treatment with patient. Patient understand s the risks and benefits of declining or accepting treatment. Please see patient discharge instructio ns for any additional informatio n concerning medical plan of care. Recurrent major depressive episodes 044484221 F33.1 Discussed the diagnosis as well as [...] issues. Polyneurop athy due to diabetes mellitus 54180013 E11.42 Patient's sugars are not at goal. [...] the Metformin. Manic bipo lar I disorder 37112236 F31.10 Discussed the diagnosis as well as the risks and benefits of therapy/ev aluation. Patient understand s the risks and benefits of declining or accepting treatment. Please see patient discharge instructio ns for any additional informatio n concerning medical plan of care. Hyperlipidemia 70051897 E78.5 Discussed lipid profile. Discussed risks and benefits of therapy. Lipid at goal based on current overall risk factors. Continue current therapy. Essential hypertension 08168547 I10 Blood pressure under good control. Continue medication s. Encourage patient to continue to monitor blood pressure regularly. [id number] [facility]ETTE Lowe [facility] [address] [place] [address] 08/26/2015 14:50:01 08/26/2015 15:25:29 Psoriasis with arthropathy 99167032 L40.50 Continue with Enbrel 50 mg subcutaneo us weekly, Sed Rate is 2 . Discussed with the patient to call the office with any further questions or concerns. -Return in 8 weeks for reevaluati on. Long-term drug therapy 130123138 Z79.899 Patient is tolerating current medication s well, not reporting any adverse effects from medication s. Next labs with follow-up appointmen t. [id number] Rakesh Clark Jr, MD [address] [place] [address] 08/29/2015 14:43:51 08/29/2015 16:05:05 Polyneuropathy due to diabetes mellitus 22584115 E11.42 Patient's sugars are not at goal. [...] of Onglyza and Metformin. Psoriasis with arthropathy 95492051 L40.50 Discussed diagnosis as well as risks and benefits of therapy. Continue current therapy/me dical plan of care. Continue to follow at this time. Will check labs as appropriat e. Hyperlipidemia 47021156 E78.5 Discussed lipid profile. Lipid not at [...] therapy/me dical plan of care. Essential hypertension 43509929 I10 Stable. Controlled . Continue current therapy/me dical plan of care. Bipolar disorder 0828271 4 F31.74 Discussed diagnosis as well as risks and benefits of therapy. Continue current therapy/me dical plan of care. Continue to follow at this time. Will check labs as appropriat e. Sciatica 21967490 M54.30 Stable. Controlled . Continue current therapy/me dical plan of care. [id number] Kalpesh Kauffman MD [facility] [address] [place] [address] 10/19/2015 11:41:06 10/19/2015 13:20:33 Acute sinusitis 68602684 J01.90 Refers previous similar episodes. Already started [...] at this time. F/U Dr Clark. Cough 90844592 R05 X Rays done today present no acute findings. Cough associated to URT infection. Currently on treatment with Enbrel. [id number] Kalpesh Kauffman MD [facility] [address] [place] [address] 10/27/2015 15:43:16 10/31/2015 08:42:48 Cough 02381414 R05 Manic bipo lar I disorder 29673921 F31.10 Refer steroid treatment could trigger lexi but well control with short term treatment with Klonopin. Bronchitis 77770175 J40 Denies prednisone allergy but possibilit y that could trigger lexi. Patient with no improvemen t and signs of acute bronchitis . Labs done today WNL. Counseled about treatment and the need for short term low dose steroid treatment. Visit ER if symptoms worsen. F/U Dr Clark. [id number] Rakesh Clark Jr, MD [address] [place] [address] 11/07/2015 15:04:46 11/07/2015 16:37:33 Polyneuropathy due to diabetes mellitus 77702788 E11.42 She states that prior to moving to [place] she had been on 2400 mg of Gabapentin day for her neuropathy . She has tried the lower dose but her neuropathy continues to be extremely uncomforta ble. Will go ahead at this time and increase her to 600 mg 3 times a day and reviewed the workup that has been done on her in the past. Psoriasis with arthropathy 19052411 L40.50 Discussed diagnosis as well as risks and benefits of therapy. Continue current therapy/me dical plan of care. Continue to follow at this time. Will check labs as appropriat e. Hyperlipidemia 12611449 E78.5 Discussed lipid profile. Discussed risks and benefits of therapy. Lipid at goal based on current overall risk factors. Continue current therapy. Depressive disorder 5520 3015 F32.2 Part of the manifestat ion of [...] concerning medical plan of care. Essential hypertension 32525113 I10 Stable. Controlled . Continue current therapy/me dical plan of care. Bipolar disorder 4428626 4 F31.11 I feel that her bipolar [...] ly will start her on Cymbalta. Sciatica 72156437 M54.30 Stable. Controlled . Continue current therapy/me dical plan of care. Peripheral neuropathic pain 835736821 M79.2 In reviewing her chart there does [...] combinatio n of all of the above. [id number] Rakesh Clark Jr, MD [address] [address] 11/21/2015 17:48:37 11/22/2015 10:54:22 Polyneuropathy due to diabetes mellitus 42103801 E11.42 Will give her a prescripti on and trial of topical cream to see if this helps with her neuropathy .Discussed the diagnosis as well as the risks and benefits of therapy/ev aluation. Patient understand s the risks and benefits of declining or accepting treatment. Please see patient discharge instructio ns for any additional informatio n concerning medical plan of care. Bipolar disorder 6470801 4 F31.11 Stable. Controlled . Continue current therapy/me dical plan of care. Peripheral neuropathic pain 207854163 M79.2 Discussed the diagnosis as well as the risks and benefits of therapy/ev aluation. Patient understand s the risks and benefits of declining or accepting treatment. Please see patient discharge instructio ns for any additional informatio n concerning medical plan of care. Depressive disorder 9697 9007 F32.2 Discussed diagnosis as well as risks and benefits of therapy. Continue current therapy/me dical plan of care. Continue to follow at this time. Will check labs as appropriat e. Psoriasis with arthropathy 63391502 L40.50 Discussed diagnosis as well as risks and benefits of therapy. Continue current therapy/me dical plan of care. Continue to follow at this time. Will check labs as appropriat e. Hyperlipidemia 14138337 E78.5 Discussed lipid profile. Discussed risks and benefits of therapy. Lipid at goal based on current overall risk factors. Continue current therapy. Essential hypertension 52039138 I10 Stable. Controlled . Continue current therapy/me dical plan of care. Sciatica 88856754 M54.30 Stable. Controlled . Continue current therapy/me dical plan of care. Urinary incontinence 165 566406 R32 Continues to be uncontroll ed. Will send the patient to see a neurologis t for further treatment. Iron defic iency anemia 37750793 D50.9 Current medical problem uncontroll ed. Discussed the diagnosis as well as different treatment option, and the risks and benefits of therapy/ev aluation. Reviewed goals of treatment with patient. Patient understand s the risks and benefits of declining or accepting treatment. Please see patient discharge instructio ns for any additional informatio n concerning medical plan of care. [id number] JOSETTE Lowe [address] [place] [address] 11/28/2015 15:04:01 11/28/2015 15:59:32 Psoriasis with arthropathy 23368165 L40.50 Continue with Enbrel 50 mg subcutaneo us weekly, Sed Rate is 7 . Discussed with the patient to call the office with any further questions or concerns. Call the office if you have any further questions or concerns. -Return in 4 months with labs Long-term drug therapy 594074975 Z79.899 Patient is tolerating current medication s well, not reporting any adverse effects from medication s. [facility] [id number] MD EBER Cobb Jr [address] [place] [address] 02/27/2016 10:00:53 02/27/2016 18:46:56 Bipolar disorder 46958641 F31.11 Stable. Controlled . Continue current therapy/me dical plan of care. Menopausal symptom 96050 002 N95.1 Current medical problem uncontroll ed. 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 She is also going to follow up with her counselor. She is to continue with her antidepres kelvin medication s. Anemia 104525366 D64.9 Discussed the diagnosis as well as the risks and benefits of therapy/ev aluation. Patient understand s the risks and benefits of declining or accepting treatment. Please see patient discharge instructio ns for any additional informatio n concerning medical plan of care. Hyperlipidemia 30647860 E78.5 Discussed lipid profile. Discussed risks and benefits of therapy. Lipid at goal based on current overall risk factors. Continue current therapy. Polyneurop athy due to diabetes mellitus 11164522 E11.42 Will change the Onglyza to a different drug because of not being covered by the insurance. Discussed the diagnosis as well as the risks and benefits of therapy/ev aluation. Patient understand s the risks and benefits of declining or accepting treatment. Please see patient discharge instructio ns for any additional informatio n concerning medical plan of care. Peripheral neuropathic pain 506301642 M79.2 Discussed the diagnosis as well as the risks and benefits of therapy/ev aluation. Patient understand s the risks and benefits of declining or accepting treatment. Please see patient discharge instructio ns for any additional informatio n concerning medical plan of care. Urinary incontinence 165 348497 R32 Discussed diagnosis as well as risks and benefits of therapy. Continue current therapy/me dical plan of care. Continue to follow at this time. Will check labs as appropriat e. Iron defic iency anemia 19442658 D50.9 Current medical problem uncontroll ed. Discussed the diagnosis as well as different treatment option, and the risks and benefits of therapy/ev aluation. Reviewed goals of treatment with patient. Patient understand s the risks and benefits of declining or accepting treatment. Please see patient discharge instructio ns for any additional informatio n concerning medical plan of care. Depressive disorder 9066 9006 F32.2 Discussed diagnosis as well as risks and benefits of therapy. Continue current therapy/me dical plan of care. Continue to follow at this time. Will check labs as appropriat e. Psoriasis with arthropathy 45598647 L40.50 Discussed diagnosis as well as risks and benefits of therapy. Continue current therapy/me dical plan of care. Continue to follow at this time. Will check labs as appropriat e. Sciatica 23839475 M54.30 Stable. Controlled . Continue current therapy/me dical plan of care. Hypertensive disorder 38 436002 I10 Blood pressure under good control. Continue medication s. Encourage patient to continue to monitor blood pressure regularly. Complicati on due to diabetes mellitus 79807940 E11.8 [id number] JOSETTE Lowe [address] [place] [address] 04/02/2016 15:34:49 04/02/2016 16:24:06 Psoriasis with arthropathy 05589713 L40.50 controlled : no active psoriasis, joint tenderness or synovitis on exam today; Morning stiffness less than 1 hour with mild fatigue and no sleeping difficulti es. Patient is active and able to do her daily activities Continue with Enbrel 50 mg subcutaneo us weekly, Sed Rate is 11 and CRP was 0.8 . Return in 3 months with labs Long-term drug therapy 370622428 Z79.899 Patient is tolerating current medication s well, not reporting any adverse effects from medication s. Next labs with follow-up appointadiel felder [id number] JOSETTE Lowe [address] [place] [address] 06/26/2016 13:12:08 06/26/2016 14:03:49 Psoriasis with arthropathy 13711749 L40.50 controlled : no active psoriasis, joint [...] with new Rheumatolo gist Long-term drug therapy 173330823 Z79.899 Patient is tolerating current medication s well, not reporting any adverse effects from medication s. Next labs with follow-up irving felder [id number] Rakesh Clark Jr, MD [address] [place] [address] 06/27/2016 08:49:08 07/04/2016 17:19:46 Bipolar disorder 52805078 F31.11 Stable. Controlled . Continue current therapy/me dical plan of care. Menopausal symptom 96668 002 N95.1 Discussed diagnosis as well as risks and benefits of therapy. Continue current therapy/me dical plan of care. Continue to follow at this time. Will check labs as appropriat e. Hyperlipidemia 26833124 E78.5 Discussed lipid profile. Discussed risks and benefits of therapy. Lipid at goal based on current overall risk factors. Continue current therapy. Polyneurop athy due to diabetes mellitus 06414166 E11.42 Doing well. Hemoglobin A1c stable. Reviewed current glycemic goals. Continue current treatment. Peripheral neuropathic pain 047656299 M79.2 Discussed diagnosis as well as risks and benefits of therapy. Continue current therapy/me dical plan of care. Continue to follow at this time. Will check labs as appropriat e. Urinary incontinence 165 769940 R32 Discussed diagnosis as well as risks and benefits of therapy. Continue current therapy/me dical plan of care. Continue to follow at this time. Will check labs as appropriat e. Iron defic iency anemia 25447522 D50.9 Current medical problem uncontroll ed. Discussed the diagnosis as well as different treatment option, and the risks and benefits of therapy/ev aluation. Reviewed goals of treatment with patient. Patient understand s the risks and benefits of declining or accepting treatment. Please see patient discharge instructio ns for any additional informatio n concerning medical plan of care. Depressive disorder 6023 0313 F32.2 Discussed diagnosis as well as risks and benefits of therapy. Continue current therapy/me dical plan of care. Continue to follow at this time. Will check labs as appropriat e. Psoriasis with arthropathy 71571683 L40.50 Discussed diagnosis as well as risks and benefits of therapy. Continue current therapy/me dical plan of care. Continue to follow at this time. Will check labs as appropriat e. Sciatica 80476880 M54.30 Stable. Controlled . Continue current therapy/me dical plan of care. Hypertensive disorder 38 367257 I10 Blood pressure under good control. Continue medication s. Encourage patient to continue to monitor blood pressure regularly. Adult heal th examination 057064129 Z00.01 Welcome to Medicare Visit done today. Recurrent major depressive episodes 433842630 F33.1 Discussed the diagnosis as well as [...] current issues. Anemia cau sed by medication 618999417 T50.905A Discussed diagnosis as well as risks and benefits of therapy. Continue current therapy/me dical plan of care. Continue to follow at this time. Will check labs as appropriat e. Obesity 345734082 E66.9 Discussed the diagnosis as well as the risks and benefits of therapy/ev aluation. Patient understand s the risks and benefits of declining or accepting treatment. Please see patient discharge instructio ns for any additional informatio n concerning medical plan of care. 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 Patient understand s the risks and benefits of declining or accepting treatment. Please see patient discharge instructio ns for any additional informatio n concerning medical plan of care. Morbid obesity 688464711 E66.01 weight issues discussed and informatio n on weight loss given. needs follow up on weight control as scheduled. Education handout on diets given. Exercise counseling done. Will arrange referral for dietitian, nutritioni st, Physical/o ccupationa l therapy as needed or desired. Also will consider pharmaceut ical and supplement al interventi ons Body mass index 40+ - severely obese 619608293 Z68.41 BMI 40.0-44.9. See Morbid Obesity above for details. Herniation of rectum into vagina 326215261 N81.6 She reports that she saw the [...] care. Gastro-eso phageal reflux disease with esophagitis 967564047 K21.0 Discussed diagnosis as well as risks and benefits of therapy. Continue current therapy/me dical plan of care. Continue to follow at this time. Will check labs as appropriat e. Fibromyalgia 568629109 M 79.7 Discussed diagnosis as well as [...] Member ID Guarantor Name 11/28/2015 1 [place] CARE [facility] (O) [id number] Kelly Peacock [id number] Kelly Tomas'Donnell 02/27/2016 1 [place] Kelly Peacock [id number] Kelly Tomas'Donnell 04/02/2016 1 [place] [id number] Kelly Peacock [id number] Kelly Tomas'Donnell 06/26/2016 1 [place] [id number] Kelly Peacock [id number] Kelly Ann TomasLawson 06/27/2016 1 [place] Kelly Peacock [id number] Kelly A Drake Notes Date Note Type Note Provider Name [...] discussed during her visit today JOSETTE Lowe [address] [facility] [address], [place], [address], [facility], [employer] 11/28/2015 16:08:29 7 text/html ArthritisReported bypatient.Reason for [...] he coming unbearable. Rakesh Clark Jr, MD [address] [address], [place], [address], [facility], [facility] 03/19/2016 01:38:55 7 text/html Rheumatology GeneralReported bypatient.Reason [...] Labs discussed during her visit today Rupesh WoodJOSETTE [address], [place], [address], [facility] [employer] [facility], [facility] 04/02/2016 16:29:19 7 text/html Rheumatology GeneralReported bypatient.Reason [...] visit today, [place] Rupesh Delgado JOSETTE Wood [address], [place], [address], [facility]o [facility], [facility] 06/26/2016 14:31:24 7 text/html ArthritisReported bypatient.Reason for [...] past the knee Rakesh Clark Jr, MD [address] [address], [place], [address], [facility] - [facility], [facility] 07/11/2016 17:09:31 OBGyn Episode No OBEpisode recorded.
== END 2024-06-15 15:27 | disposition home or self-care (01) ==
LOC: HO.HMCC 13:03
PROVIDERS: PCP Internal Medicine; Visit Provider Internal Medicine
DX: R30.0 Dysuria (principal); E11.69 Type 2 diabetes mellitus with other specified complication; F31.9 Bipolar disorder, unspecified; L40.50 Arthropathic psoriasis, unspecified; E78.5 Hyperlipidemia, unspecified; J45.909 Unspecified asthma, uncomplicated

== ENCOUNTER 2024-06-15 13:02 | Outpatient (REF) | payer MEDICARE, MEDICAID, SELFPAY ==
--- OUTSIDE RECORDS SUMMARY | 2024-06-15 15:37 | XMS_ITS | Encounter Summary ---
Author Organization [facility] Address [address] [place] [address] Care Team Providers Care Relationship Executive Name Role Phone Almaz Billy MD Primary Care Provider [phone] Encounter Details Date Type Department Care Team (Latest Contact Info) Description 01/14/2024 Lab Requisition [facility] - Main Lab [address] [facility] [place] [id number] Rachel Child MD [address] [address] Encounter for gynecological examination (general) [...] or malignancy 01/16/2024 3:49 PM EST [facility] General Categorization Negative 01/16/2024 3:49 PM [facility] Specimen Adequacy Satisfactory for evaluation 01/16/2024 3:49 PM [facility] Pap Methodology Liquid Based Pap Test 01/16/2024 3:49 PM [facility] Disclaimer The Pap test is a screening test which carries an inherent false negative rate. These test results should be correlated with the patient's clinical findings and history. This Pap test was processed using an automated screening system. Technical cytopathology services provided by [facility], at [address] [place] [address] (CLIA # [id number]/Abhishek Ayala MD, Turntable Worker.) 01/16/2024 3:49 PM [facility] Console Pap Interpretation Reported 01/16/2024 3:49 PM [facility] Brushing/Spatula Vaginal structure / Unknown 01/13/2024 01/14/2024 9:46 AM EST us Rachel Child MD LAB CYTOLOGY ORDERABLES Final Result [facility] [address] [place] [address], documented in this encounter Visit Diagnoses Diagnosis Encounter for gynecological examination (general) (routine) without abnormal findings documented in this encounter Additional Health Concerns Infection Onset Date Last Indicated Resolved Time C. Diff Rule-Out Infection 02/06/2024 02/06/2024 1 04/08/2023 10:20 AM EST Gastrointestinal Rule-Out 02/06/2024 02/06/2024 11:41 AM EST documented as of this encounter Care Teams Relationship Executive Relationship Specialty Start Date End Date Almaz Billy MD PCP - General Internal Medicine 01/29/24 documented as of this encounter
--- OUTSIDE RECORDS SUMMARY | 2024-06-15 15:37 | XMS_ITS | Clinical Summary ---
Author Organization [facility] 299 [facility] Address [address] [place] [address] Phone Care Team Providers Care Implementation Project Coordinator Name Role Phone Almaz Billy MD Primary Care Provider Allergies Active Allergy Reactions Criticality Noted Date [...] 1 (one) time each day. 2 Active nuvlrhkp-sqyf-n pmjl-hqqw-uxbdr 100 mg-150 mg- 50 mg-150 mg capsule [...] LAB BLOOD ORDERABLES Final R esult [facility] [address] [place] [address], [place] [phone] * Pap smear (01/13/2024 12:00 AM EST) Interpretation Negative for intraepithelial lesion or malignancy 01/16/2024 3:49 PM EST [facility] General Categorization Negative 01/16/2024 3:49 [...] screening system. Technical cytopathology services provided by [facility], at [address] [place] [id number] (CLIA # [id number]/Abhishek Ayala MD, Toxicologist.) 01/16/2024 3:49 PM [facility] Console Pap Interpretation Reported 01/16/2024 3:49 PM [facility] Brushing/Spatula Vaginal structure / Unknown 01/13/2024 01/14/2024 9:46 AM EST Rachel Child MD LAB CYTOLOGY ORDERABLES Final Result [facility] [address] [place] [address], [place] [phone] from Last 3 Months or Most Recently Relevant to Health Maintenance Insurance MEDICARE MEDICAID - [place] Care Teams Implementation Project Coordinator Relationship Specialty Start Date End Date Almaz Billy MD PCP - General Internal Medicine 01/29/24
[2024-06-15 16:22] LABS: Appearance Urine Clear; Color Urine Yellow; Glucose Urine UA Negative (Negative); Leukocyte Esterase Urine Negative (Negative); Nitrite Urine Negative (Negative); Specific Gravity - Urine 1.025 (1.005-1.025); Urine Blood Negative (Negative); Urine Ketones Negative (Negative); Urine Protein Negative (Neg-Trace)
[2024-06-15 16:29] LABS: Bacteria Urine None Seen (None Seen); Hyaline Casts Urine 0-2 /LPF (0-2); RBC Urine 0-2 /HPF (0-2); Squamous Epithelial Cell Urine 0-2 /HPF (0-2); WBC Urine 0-5 /HPF (0-5)
== END 2024-06-15 13:03 | disposition home or self-care (01) ==
LOC: HO.HMGCLDS 13:02
PROVIDERS: PCP Internal Medicine; Visit Provider Internal Medicine
DX: R30.0 Dysuria (principal); E11.9 Type 2 diabetes mellitus without complications; E78.5 Hyperlipidemia, unspecified; J45.909 Unspecified asthma, uncomplicated; L40.50 Arthropathic psoriasis, unspecified
CPT/HCPCS: 81001; 87086; 99212

== ENCOUNTER 2024-06-25 12:04 | Outpatient (AMB) | payer MEDICARE, MEDICAID, SELFPAY ==
--- NOTE | 2024-06-25 12:39 | AM.OFFWIN_ITS ---
Intake Vital Signs 3 06/25/24 12:41 Weight 172 lb 8 oz BP 130/82 Blood Pressure Location Rt brachial Position Sitting Pulse 74 Pulse Source Pulse Oximeter Pulse Oximetry (%) 98 Oxygen Delivery Method Room Air Intake Visit Reasons: EP Swelling ~ Collar bone Intake Note: Patient here for swelling around collar bone that has been like this for about a week or so. Patient Tobacco Use Status: Former Tobacco user Allergies amlodipine [From Norvasc] Allergy (Unknown, Verified 06/25/24 12:43) Anaphylaxis chlorthalidone Allergy (Unknown, Verified 06/25/24 12:43) Anaphylaxis doxycycline Allergy (Unknown, Verified 06/25/24 12:43) Anaphylaxis erythromycin base Allergy (Unknown, Verified 06/25/24 12:43) Anaphylaxis loracarbef [From Lorabid] Allergy (Unknown, Verified 06/25/24 12:43) Anaphylaxis prednisone Allergy (Unknown, Verified 06/25/24 12:43) manic Sulfa (Sulfonamide Antibiotics) Allergy (Unknown, Verified 06/25/24 12:43) anaphylaxis sulfamethoxazole [From Bactrim] Allergy (Unknown, Verified 06/25/24 12:43) Anaphylaxis trimethoprim [From Bactrim] Allergy (Unknown, Verified 06/25/24 12:43) Anaphylaxis Lorabid Allergy (Unknown, Uncoded 06/25/24 12:43) anaphylaxis Do you need a note to return to daycare/school/sports/work: No HPI HPI Comments 2 History of Present Illness0 Details 63 y/o Female patient who [facility] in clinic with c/o Collar bine pain. Pt reports that she noticed some swelling of her Collar bone, bump and tenderness with touch. Denies trauma or injury. Pt reports on going chronic Neck pain. Reports Pain with ROM. Denies trauma or injury to the Neck. [facility] Medical History (Updated 06/25/24 @ 15:54 by Michela Bowman NP) Cervicalgia Asthma Fall Annual physical exam IBS (irritable bowel syndrome) Mammogram normal Fatty liver Bipolar disorder Exercise-induced asthma Hyperlipemia HTN (hypertension) Neuropathy Obesity Diabetes Psoriatic arthritis Surgical History History of bladder surgery H/O colonoscopy History of esophagogastroduodenoscopy (EGD) Hx of cholecystectomy History of total abdominal hysterectomy Family History Father No problems noted. Mother No problems noted. Sister No problems noted. Sister No problems noted. Son Mental health disorder Substance use disorder Son No problems noted. Daughter No problems noted. Social History Housing: House Alcohol intake: current Alcohol intake frequency: holidays/special occasions only Patient Tobacco Use Status: Former Tobacco user e-Cigarette/Vaping Use: Never Used service: No Current occupational status: disabled Cognitive needs: No Hearing needs: No Vision needs: Yes Review of Systems Const All systems reviewed & are unremarkable except as noted in HPI and below Physical Exam Vital Signs: Last Vital Signs Pulse 74 06/25/24 12:41 BP 130/82 06/25/24 12:41 Pulse Ox 98 06/25/24 12:41 Oxygen Delivery Method Room Air 06/25/24 12:41 Const General: no acute distress Nutritional Appearance: obese Orientation/consciousness: patient oriented x3 Neck Neck: Yes full ROM and Yes no lymphadenopathy Neck images: 2 1. TTP, palpated a small bony structure. Back/Spine/Pelvis Cervical Spine: cervical ROM normal, cervical muscular tenderness, pain with cervical ROM, cervical spasm and Cervical spine tenderness Neuro General: patient oriented x3, gait normal and moves all extremities Assessment & Plan Assessment & Plan (1) Cervicalgia: Code(s): M54.2 - Cervicalgia Plan: NSAIDs for pain relief. Ordered Physical Therapy Collar bone Tenderness; take NSAIDs or Acetaminophen for pain relief. Ice/Hot. Orders: Orders 2 PT Evaluation and Treatment Today M54.2 - Cervicalgia Medications: New 2 meloxicam 7.5 mg PO DAILY 20 tabs 0RF M54.2 - Cervicalgia Discontinued 2 promethazine-codeine 6.25-10 mg/5 mL Discontinued Reason: Patient Completed Course 5 mL PO Q6H 7 days PRN 118 mL 0RF cough R05.1 - Acute cough Coding Level of Care Code Est Pt Level 4 (91207) Diagnoses Cervicalgia M54.2 Time Spent (min) 20
[2024-06-25 12:41] VITALS: BP 130/82; PULSE 74; O2SAT 98
--- OUTSIDE RECORDS SUMMARY | 2024-06-25 13:01 | XMS_ITS | Clinical Summary ---
Author Organization [facility] 299 [facility] Address [address] [place] [address] Phone Care Team Providers Care Security System Sales Consultant Name Role Phone Almaz Billy MD Primary Care Provider [phone] Allergies Active Allergy Reactions Criticality Noted Date [...] 1 (one) time each day. 2 Active idkgzhgt-eacj-t lsmd-nnfm-qqqyl 100 mg-150 mg- 50 mg-150 mg capsule Take 500 mg by mouth. 3 Active acetaminophen (TylenoL) 325 mg capsule Take 2 capsules (650 mg total) by mouth. 3 Active Active Problems Problem Noted Date Diagnosed Date Adenomatous polyp of colon 01/29/2024 Irritable bowel syndrome with diarrhea 4 Psoriatic arthritis ([facility] V24, [facility] V28) 1 03/31/2023 S/P partial hysterectomy 01/29/2024 Diabetes ([facility] V24, [facility] V28) 01/29/2024 Asthma 01/29/2024 Gastroesophageal [...] mmol/L LAB CHEMISTRY METHOD 01/29/2024 5:27 PM [facility] Potassium 4.7 3.5 - 5.5 mmol/L LAB CHEMISTRY METHOD 01/29/2024 5:27 PM [facility] Chloride 106 96 - 110 mmol/L LAB CHEMISTRY METHOD 01/29/2024 5:27 PM [facility] CO2 26 21 - 32 mmol/L LAB CHEMISTRY METHOD 01/29/2024 5:27 PM [facility] Anion Gap 9 3 - 11 LAB CHEMISTRY METHOD 01/29/2024 5:27 PM [facility] Glucose 95 70 - 100 mg/dL LAB CHEMISTRY METHOD 01/29/2024 5:27 PM [facility] BUN 24 5 - 25 mg/dL LAB CHEMISTRY METHOD 01/29/2024 5:27 PM [facility] Creatinine 0.83 0.50 - 1.10 mg/dL LAB CHEMISTRY METHOD 01/29/2024 5:27 PM [facility] eGFR 78 >=60 mL/min/1. 73m2 LAB CHEMISTRY METHOD 01/29/2024 5:27 PM [facility] Comment:Calculation based on the??Chronic Kidney Disease Epidemiology Collaboration (CKD-EPI) equation refit??without adjustment for race. BUN/Creatinine Ratio 28.9 LAB CHEMISTRY METHOD 01/29/2024 5:27 PM [facility] Calcium 10.2 8.5 - 10.5 mg/dL LAB CHEMISTRY METHOD 01/29/2024 5:27 PM [facility] AST (SGOT) 13 10 - 42 unit/L LAB CHEMISTRY METHOD 01/29/2024 5:27 PM [facility] ALT (SGPT) 27 10 - 60 unit/L LAB CHEMISTRY METHOD 01/29/2024 5:27 PM [facility] Alkaline Phosphatase 58 42 - 121 unit/L LAB CHEMISTRY METHOD 01/29/2024 5:27 PM [facility] Total Protein 6.8 6.0 - 8.0 g/dL LAB CHEMISTRY METHOD 01/29/2024 5:27 PM [facility] Albumin 4.0 3.2 - 5.0 g/dL LAB CHEMISTRY METHOD 01/29/2024 5:27 PM [facility] Total Bilirubin 0.6 0.0 - 1.4 mg/dL LAB CHEMISTRY METHOD 01/29/2024 5:27 PM [facility] Blood Venous blood specimen / Unknown Venipuncture / Unknown 01/29/2024 2:51 PM EST 01/29/2024 4:16 PM EST us Laz FLEMING LAB BLOOD ORDERABLES Final R esult [facility] [address] [place] [address], [place] [phone] * Pap smear (01/13/2024 12:00 AM EST) Interpretation Negative for intraepithelial lesion or malignancy 01/16/2024 3:49 PM EST [facility] General Categorization Negative 01/16/2024 3:49 PM [facility] Specimen Adequacy Satisfactory for evaluation 01/16/2024 3:49 PM [facility] Pap Methodology Liquid Based Pap Test 01/16/2024 3:49 PM [facility] Disclaimer The Pap test is a screening test which carries an inherent false negative rate. These test results should be correlated with the patient's clinical findings and history. This Pap test was processed using an automated screening system. Technical cytopathology services provided by [facility], at [address] [place] [id number] (CLIA # [id number]/Abhishek Ayala MD, Mechanical Door Repairer.) 01/16/2024 3:49 PM [facility] Console Pap Interpretation Reported 01/16/2024 3:49 PM [facility] Brushing/Spatula Vaginal structure / Unknown 01/13/2024 01/14/2024 9:46 AM EST Rachel Child MD LAB CYTOLOGY ORDERABLES Final Result [facility] [address] [place] [address], [place] [phone] from Last 3 Months or Most Recently Relevant to Health Maintenance Insurance MEDICARE MEDICAID - [place] Care Teams Security System Sales Consultant Relationship Specialty Start Date End Date Almaz Billy MD PCP - General Internal Medicine 01/29/24
--- OUTSIDE RECORDS SUMMARY | 2024-06-25 13:01 | XMS_ITS | Encounter Summary ---
Author Organization [facility] Address [address] [place] [address] Care Team Providers Care Certified Medical Transcriptionist Name Role Phone Almaz Billy MD Primary Care Provider [phone] Encounter Details Date Type Department Care Team (Latest Contact Info) Description 01/14/2024 Lab Requisition [facility] - Main Lab [address] [facility] [place] [phone] Rachel Child MD [address] [address] Encounter for gynecological examination [...] lesion or malignancy 01/16/2024 3:49 PM EST [facility] General Categorization Negative 01/16/2024 3:[address] [facility] Specimen Adequacy Satisfactory for evaluation 01/16/2024 3:[address] [facility] Pap Methodology Liquid Based Pap Test 01/16/2024 3:[address] [facility] Disclaimer The Pap test is a screening test which carries an inherent false negative rate. These test results should be correlated with the patient's clinical findings and history. This Pap test was processed using an automated screening system. Technical cytopathology services provided by [facility], at [address] [place] [address] (CLIA # [id number]/Abhishek Ayala MD, Automotive Fuel Injection Servicer.) 01/16/2024 3:[address] [facility] Console Pap Interpretation Reported 01/16/2024 3:[address] [facility] Brushing/Spatula Vaginal structure / Unknown 01/13/2024 01/14/2024 9:46 AM EST us Rachel Child MD LAB CYTOLOGY ORDERABLES Final Result [facility] [address] [place] [address], documented in this encounter Visit Diagnoses Diagnosis Encounter for gynecological examination (general) (routine) without abnormal findings documented in this encounter Additional Health Concerns Infection Onset Date Last Indicated Resolved Time C. Diff Rule-Out Infection 02/06/2024 02/06/2024 1 04/08/2023 10:20 AM EST Gastrointestinal Rule-Out 02/06/2024 02/06/2024 11:41 AM EST documented as of this encounter Care Teams Certified Medical Transcriptionist Relationship Specialty Start Date End Date Almaz Billy MD PCP - General Internal Medicine 01/29/24 documented as of this encounter
--- OUTSIDE RECORDS SUMMARY | 2024-06-25 13:02 | XMS_ITS | Data Portability ---
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 Plan of Treatment Reminders Order Date Submit Date Provider Last Modified By Organization Details Last Modified Time Details Appointments None recorded. Lab [facility] 2016 017 [facility], [address], [place], [address], 7 18:03:08 CMP, serum or plasma 2016 017 [facility], [address] [place], [address], 7 18:03:08 erythrocyt e sedimentat ion rate by westergren method 2016 017 [facility], [address] [place], [address], 8 14:34:57 C-reactive protein, quantitati ve, serum or plasma 2016 017 [facility], [address], [place], [address], 8 14:34:57 urinalysis , complete 2016 017 [facility], [address], [place], [address], 7 19:19:41 CBC 2016 017 [facility], [address], [place], [address], 7 01:49:23 lipid panel, serum 2016 017 [facility], [address], [place], [address], 7 12:58:38 venipunctu re 2016 017 [facility], [address], [place], [address], 7 10:30:07 1,5-anhydr oglucitol, serum or plasma 2016 017 [facility], [address], [place], [address], 7 12:58:39 HbA1c (hemoglobi n A1c), blood 2016 017 [facility], [address], [place], [address], 7 20:36:42 CMP, serum or plasma 2016 017 [facility], [address], [place], [address], 7 12:58:37 iron + TIBC + ferritin, serum 2016 017 [facility], [address], [place], [address], 7 12:58:37 erythrocyt e sedimentat ion rate by westergren method 2015 017 [facility], [address], [place], [address], 7 12:28:13 CMP, serum or plasma 2015 017 [facility], [address], [place], [address], 7 12:28:14 CBC 2015 017 [facility], [address], [place], [address], 7 12:28:12 C-reactive protein, quantitati ve, serum or plasma 2015 017 [facility], [address], [place], [address], 7 12:28:14 Referral None recorded. Procedures None recorded. Surgeries None recorded. Imaging electrocar diogram 2016 017 [email or web address] In-Office Order, Internal Use Only DO Not Attach Compendium DO Not Attach Compendium, Do Not Delete/merge, [id number] 7 17:19:46 Medication Orders omeprazole 20 mg capsule,de layed release 2016 017 [facility], [address] [place], [address], 7 18:26:54 tizanidine 4 mg tablet 2016 017 [facility], [address] [place], [address], 7 18:26:54 hydrochlor othiazide 25 mg tablet 2016 017 [facility], [address] [place] [address], [place], [address], 7 18:26:56 losartan 100 mg tablet 2016 017 [facility], [address] [place] [address], [place], [address], 7 18:26:53 atorvastat in 40 mg tablet 2016 017 [facility], [address], [place], [address], 7 18:26:55 metformin 500 mg tablet 2016 017 [facility], [address] [place] [address], [place], [address], 7 18:26:53 Onglyza 5 mg tablet 2016 017 [facility], [address] [place], [place], [address], 7 18:26:52 gabapentin 600 mg tablet 2016 017 [facility], [address] [place] [address], [place], [address], 7 18:26:51 Cymbalta 30 mg capsule,de layed release 2016 017 [facility], [address] [place], [place], [address], 7 18:26:52 buspirone 15 mg tablet 2016 017 [facility], [address], [place], [address], 7 18:26:57 clonazepam 1 mg tablet 2016 017 flemoine [facility], [address] [place], [address], 7 18:28:48 Enbrel SureClick 50 mg/mL (1 mL) subcutaneo us pen injector 2016 017 flemoine Not available 7 18:28:48 clobetasol 0.05 % topical ointment 2016 017 [facility], [address] [place], [address], 7 18:26:56 clobetasol 0.05 % scalp solution 2016 017 [facility], [address] [place], [address], 7 18:26:51 ferrous sulfate 325 mg (65 mg iron) tablet 2016 017 [facility], [address] [place], [address], 7 18:26:55 Enbrel SureClick 50 mg/mL (1 mL) subcutaneo us pen injector 2016 017 ATHENAFAX [employer] [facility] [address] [address], [place], [address], 7 16:41:00 Nesina 25 mg tablet 2016 017 azeb [facility], [address] [place], [address], 7 16:16:47 Patient TargetsNo targets recorded. Patient Instructions Encounter Date Encounter Id Patient Instructions Last Modified By Organization Details Last Modified Time 11/28/2015 [id number] call us if condition worsens Not available 11/28/2015 15:26:26 Patient aware of issues with biologics such as stopping medication/callin g us if any infections arise, also must stop biologic prior to suregery ( should call us if surgery planned), aware of cancers such as lymphoma, skin cancers, etc.. Not available 11/28/2015 15:26:26 02/27/2016 [id number] anemia: care instructions MORA Not available 02/28/2016 [...] medical attention if symptoms worsen as directed. MediSapiens Speaking program was used in part of the creation of this note. The voice recognition is set for speed over accuracy. Inherently this may result in phonetic, recognition or omissions errors in this pelletizer tender. [email or web address] Not available 02/27/2016 18:38:48 04/02/2016 [id number] Patient Instructions call us if condition worsens Not available 04/02/2016 16:13:16 Patient aware of issues with biologics such as stopping medication/callin g us if any infections arise, also must stop biologic prior to surgery ( should call us if surgery planned), aware of cancers such as lymphoma, skin cancers, etc.. Not available 04/02/2016 16:25:17 06/26/2016 [id number] Patient Instructions call us if condition worsens Not available 06/26/2016 13:58:15 Patient aware of issues with biologics such as stopping medication/callin g us if any infections arise, also must stop biologic prior to surgery ( should call us if surgery planned), aware of cancers such as lymphoma, skin cancers, etc.. Not available 06/26/2016 13:57:04 06/27/2016 [id number] starting a weigh t loss plan: care [...] medical attention if symptoms worsen as directed. MediSapiens Speaking program was used in part of the creation of this note. The voice recognition is set for speed over accuracy. Inherently this may result in phonetic, recognition or omissions errors in this pelletizer tender. [email or web address] Not available 06/27/2016 18:28:21 Reason for Referral None Reported. Results Created Date Observation Date Name Description Value Unit Range Abnormal Flag Note LastModifiedBy Organization Detail LastModifiedTime 11/21/19 16 11/21/2015 urina lysis , dipst ick leukocytes neg negati ve Not Available In-Office Order Internal Use Only DO Not Attach Compendium DO Not Attach Compendium, Do Not Delete/merge, [id number] 11/21/2015 19:41:57 11/21/19 16 11/21/2015 urina lysis [...] DO Not Attach Compendium, Do Not Delete/merge, [id number] 11/21/2015 19:41:57 11/21/19 16 11/21/2015 urina lysis , dipst ick protein neg negati ve Not Available In-Office Order Internal Use Only DO Not Attach Compendium DO Not Attach Compendium, Do Not Delete/merge, [id number] 11/21/2015 19:41:57 11/21/19 16 11/21/2015 urina lysis , dipst ick pH 5.0 5.0-7. 0 Not Available In-Office Order Internal Use Only DO Not Attach Compendium DO Not Attach Compendium, Do Not Delete/merge, [id number] 11/21/2015 19:41:57 11/21/19 16 11/21/2015 urina lysis , dipst ick blood neg negati ve Not Available In-Office Order Internal Use Only DO Not Attach Compendium DO Not Attach Compendium, Do Not Delete/merge, [id number] 11/21/2015 19:41:57 11/21/19 16 11/21/2015 urina lysis , dipst ick specific gravity 1.030 1.020- 1.035 Not Available In-Office Order Internal Use Only DO Not Attach Compendium DO Not Attach Compendium, Do Not Delete/merge, [id number] 11/21/2015 19:41:57 11/21/19 16 11/21/2015 urina lysis , dipst ick ketone small negati ve Not Available In-Office Order Internal Use Only DO Not Attach Compendium DO Not Attach Compendium, Do Not Delete/merge, [id number] 11/21/2015 19:41:57 11/21/19 16 11/21/2015 urina lysis , dipst ick bilirubin small negati ve Not Available In-Office Order Internal Use Only DO Not Attach Compendium DO Not Attach Compendium, Do Not Delete/merge, [id number] 11/21/2015 19:41:57 11/21/19 16 11/21/2015 urina lysis , dipst ick glucose neg negati ve Not Available In-Office Order Internal Use Only DO Not Attach Compendium DO Not Attach Compendium, Do Not Delete/merge, [id number] 11/21/2015 19:41:57 11/14/19 16 11/14/2015 urina lysis , compl ete color LIGHT YELLOW Not Available [facility] [address], [place], [address], 11/14/2015 18:52:56 11/14/19 16 11/14/2015 urina lysis , compl ete appearance CLEAR clear Not Available [facility] [address], [place], [address], 11/14/2015 18:52:56 11/14/19 16 11/14/2015 urina lysis , compl ete specific gravity 1.010 Not Available [facility] [address], [place], [address], 11/14/2015 18:52:56 11/14/19 16 11/14/2015 urina lysis , compl ete pH 7.0 Not Available [facility] [address], [place], [address], 11/14/2015 18:52:56 11/14/19 16 11/14/2015 urina lysis , compl ete glucose NEGATI VE negati ve Not Available [facility] [address], [place], [address], 11/14/2015 18:52:56 11/14/19 16 11/14/2015 urina lysis , compl ete bilirubin NEGATI VE negati ve Not Available [facility] [address], [place], [address], 11/14/2015 18:52:56 11/14/19 16 11/14/2015 urina lysis , compl ete ketone NEGATI VE negati ve Not Available [facility] [address], [place], [address], 11/14/2015 18:52:56 11/14/19 16 11/14/2015 urina lysis , compl ete blood NEGATI VE negati ve Not Available [facility] [address], [place], [address], 11/14/2015 18:52:56 11/14/19 16 11/14/2015 urina lysis , compl ete protein NEGATI VE negati ve Not Available [facility] [address] [facility] [address], [place], [address], 11/14/2015 18:52:56 11/14/19 16 11/14/2015 urina lysis , compl ete urobilinogen NORMAL Not Available [facility] [address], [place], [address], 11/14/2015 18:52:56 11/14/19 16 11/14/2015 urina lysis , compl ete nitrite NEGATI VE negati ve Not Available [facility] [address], [place], [address], 11/14/2015 18:52:56 11/14/19 16 11/14/2015 urina lysis , compl ete leukocytes NEGATI VE negati ve Not Available [facility] [address] [facility] [address], [place], [address], 11/14/2015 18:52:56 11/14/19 16 11/14/2015 CBC WBC 4.4 x10^3 /uL 4.4-11 .0 Not Available [facility] [address] [place], [place] [address], [place], [address], 11/14/2015 19:40:45 11/14/19 16 11/14/2015 CBC RBC 4.71 x10^6 /uL 4.50-5 .10 Not Available [facility] [address] [place], [place] [address]y [address] [place], [address], 11/14/2015 19:40:45 11/14/19 16 11/14/2015 CBC HGB 12.0 g/dL 12.3-1 5.3 low RESUL TS VERIF IED BY REPEA T ROOSEVELT SIS Not Available [facility] [address] [place], [place] [address] [address] [place], [address], 11/14/2015 19:40:45 11/14/19 16 11/14/2015 CBC HCT 37.5 % 35.9-4 4.6 Not Available [facility] [address] [place], [place] [address]y [address] [place], [address], 11/14/2015 19:40:45 11/14/19 16 11/14/2015 CBC MCV 79.8 fL 80.0-9 6.0 low Not Available [facility] [address] [place], [place] [address] [address] [place], [address], 11/14/2015 19:40:45 11/14/19 16 11/14/2015 CBC MCH 25.5 pg 27.5-3 3.2 low Not Available [facility] [address] [place], [place] [address], [place], [address], 11/14/2015 19:40:45 11/14/19 16 11/14/2015 CBC MCHC 31.9 g/dL 33.4-3 5.5 low Not Available [facility] [address], [place], [address], 11/14/2015 19:40:45 11/14/19 16 11/14/2015 CBC RDW 17.2 % 11.6-1 3.7 high Not Available [facility] [address], [place], [address], 11/14/2015 19:40:45 11/14/19 16 11/14/2015 CBC plt 201 x10^3 /uL 150-45 0 Not Available [facility], [place], [address], 11/14/2015 19:40:45 11/14/19 16 11/14/2015 CBC MPV 9.1 fL 7.4-10 .4 Not Available [facility], [place], [address], 11/14/2015 19:40:45 11/14/19 16 11/14/2015 CBC neut # 2.2 x10^3 /uL 1.5-7. 2 Not Available [facility], [place], [address], 11/14/2015 19:40:45 11/14/19 16 11/14/2015 CBC lymph# 1.6 x10^3 /uL 0.7-4. 9 Not Available [facility] [address], [place], [address], 11/14/2015 19:40:45 11/14/19 16 11/14/2015 CBC mono# 0.5 x10^3 /uL 0.1-0. 9 Not Available [facility] [address], [place], [address], 11/14/2015 19:40:45 11/14/19 16 11/14/2015 CBC eos # 0.0 x10^3 /uL 0.0-0. 4 Not Available [facility] [address], [place], [address], 11/14/2015 19:40:45 11/14/19 16 11/14/2015 CBC baso # 0.0 x10^3 /uL 0.0-0. 2 Not Available [facility] [address], [place], [address], 11/14/2015 19:40:45 11/14/19 16 11/14/2015 CBC neut % 50.5 % 42.2-7 5.2 Not Available [facility] [address], [place], [address], 11/14/2015 19:40:45 11/14/19 16 11/14/2015 CBC mono% 11.9 % 1.7-9. 3 high Not Available [facility] [place], [address], 11/14/2015 19:40:45 11/14/19 16 11/14/2015 CBC eos% 1.0 % 1.0-6. 0 Not Available [facility] [address], [place], [address], 11/14/2015 19:40:45 11/14/19 16 11/14/2015 CBC baso% 0.5 % 0.0-4. 0 Not Available [facility] [address], [place], [address], 11/14/2015 19:40:45 11/14/19 16 11/14/2015 CBC lymph % 36.1 % 20.5-5 1.1 Not Available [facility] [address], [place], [address], 11/14/2015 19:40:45 11/14/19 16 11/14/2015 CMP, serum or plasm a sodium 139 mmol/ L 136-14 5 Not Available [facility] [address], [place], [address], 11/14/2015 19:54:40 11/14/19 16 11/14/2015 CMP, serum or plasm a potassium 4.5 mmol/ L 3.6-5. 1 Not Available [facility] [address] [place], [place] [address]y [address], [place], [address], 11/14/2015 19:54:40 11/14/19 16 11/14/2015 CMP, serum or plasm a chloride 101 mmol/ L 98-108 Not Available [facility] [address] [facility] [address], [place], [address], 11/14/2015 19:54:40 11/14/19 16 11/14/2015 CMP, serum or plasm a carbon dioxide 34 mmol/ L 18-33 high Not Available [facility] [address] [place], [place] [address] [address] [place], [address], 11/14/2015 19:54:40 11/14/19 16 11/14/2015 CMP, serum or plasm a glucose 79 mg/dL 65-99 Not Available [facility] [address], [place], [address], 11/14/2015 19:54:40 11/14/19 16 11/14/2015 CMP, serum or plasm a BUN 14 mg/dL 7-18 Not Available [facility] [address], [place], [address], 11/14/2015 19:54:40 11/14/19 16 11/14/2015 CMP, serum or plasm a creatinine 0.8 mg/dL 0.8-1. 3 Not Available [facility] [address] [place], [place] [address], [place], [address], 11/14/2015 19:54:40 11/14/19 16 11/14/2015 CMP, serum or plasm a BUN/creat ratio 17.5 calc 10.0-2 5.0 Not Available [facility] [address] [place], [place] [address], [place], [address], 11/14/2015 19:54:40 11/14/19 16 11/14/2015 CMP, serum or plasm a calcium 8.7 mg/dL 8.5-10 .6 Not Available [facility] [address] [place], [place] [address], [place], [address], 11/14/2015 19:54:40 11/14/19 16 11/14/2015 CMP, serum or plasm a total protein 6.9 g/dL 6.4-8. 1 Not Available [facility] [address] [place], [place] [address], [place], [address], 11/14/2015 19:54:40 11/14/19 16 11/14/2015 CMP, serum or plasm a albumin 4.1 g/dL 3.3-5. 5 Not Available [facility] [address] [place], [place] [address], [place], [address], 11/14/2015 19:54:40 11/14/19 16 11/14/2015 CMP, serum or plasm a globulin 2.8 g/dL 1.3-4. 0 Not Available [facility] [address] [place], [place] [address] [address] [place], [address], 11/14/2015 19:54:40 11/14/19 16 11/14/2015 CMP, serum or plasm a A/G ratio 1.5 calc 1.0-2. 8 Not Available [facility] [address] [place] [address] [address] [place], [address], 11/14/2015 19:54:40 11/14/19 16 11/14/2015 CMP, serum or plasm a alk. phosphatase 69 U/L 50-128 Not Available [facility] [address] [place] [address] [address] [place], [address], 11/14/2015 19:54:40 11/14/19 16 11/14/2015 CMP, serum or plasm a ALT (SGPT) 28 U/L 10-47 Not Available [facility] [address] [place] [address] [address] [place], [address], 11/14/2015 19:54:40 11/14/19 16 11/14/2015 CMP, serum or plasm a AST (SGOT) 30 U/L 11-38 Not Available [facility] [address] [place] [address], [address], 11/14/2015 19:54:40 11/14/19 16 11/14/2015 CMP, serum or plasm a total bilirubin 0.46 mg/dL 0.20-1 .60 Not Available [facility] [address] [place] [address], [address], 11/14/2015 19:54:40 11/14/19 16 11/14/2015 CMP, serum or plasm a GFR >60.0 >=60.0 IF PATIE NT IS AFRIC AN AMERI CAN, MULTI PLY RESUL T BY 1.21 Not Available [facility] [address] [place] [address] [address] [place], [address], 11/14/2015 19:54:40 11/14/19 16 11/14/2015 lipid panel , serum cholesterol 111 mg/dL 20-180 Not Available [facility] [address] [facility] [address] [place], [address], 11/14/2015 19:54:40 11/14/19 16 11/14/2015 lipid panel , serum triglyceride s 62 mg/dL 30-150 Not Available [facility] [address] [facility] [address] [place], [address], 11/14/2015 19:54:40 11/14/19 16 11/14/2015 lipid panel , serum HDL cholesterol 42 mg/dL 23-92 Not Available [facility] [address] [facility] [address] [place], [address], 11/14/2015 19:54:40 11/14/19 16 11/14/2015 lipid panel , serum VLDL cholesterol 12 calc Not Available [facility] [address] [place] [address], [address], 11/14/2015 19:54:40 11/14/19 16 11/14/2015 lipid panel , serum HDL risk factor 2.6 calc RISK FACTO R MALE FEMAL E 1/2 AVG RISK 3.4 3.3 AVG RISK 5.0 4.0 2X AVG RISK 9.6 7.1 3X AVG RISK 24.0 11.0 Not Available [facility] [address] [place] [address] [address] [place], [address], 11/14/2015 19:54:40 11/14/19 16 11/14/2015 lipid panel , serum cholesterol/ HDL ratio 3 calc CHOL/ HDL RATIO <3 OPTIM AL 3-4 BORDE RLINE >6 HIGH RISK Not Available [facility] [address] [facility] [address] [place], [address], 11/14/2015 19:54:40 11/14/19 16 11/14/2015 lipid panel , serum non-HDL cholesterol 69 calc NON-H DL TROY STERO L <190 MG/DL LOW RISK <160 MG/DL MODER ATE RISK <130 MG/DL HIGH RISK Not Available [facility] [address], [place], [address], 11/14/2015 19:54:40 11/14/19 16 11/15/2015 CMP, serum or plasm a glucose 96 mg/dL 65-99 normal Fasti ng refer ence inter inocencio Not Available [facility] [address], [place], [address], 11/15/2015 06:13:50 11/14/19 16 11/15/2015 CMP, serum or plasm a urea nitrogen (BUN) 14 mg/dL 7-25 normal Not Available [facility] [address], [place], [address], 11/15/2015 06:13:50 11/14/19 16 11/15/2015 CMP, serum or plasm a creatinine 0.85 mg/dL 0.50-1 .05 normal For patie nts >49 years of age, the refer ence limit for Creat inine is appro ximat mark 13% highe r for peopl e ident ified as Afric an-Am hong n. Not Available [facility] [address], [place], [address], 11/15/2015 06:13:50 11/14/19 16 11/15/2015 CMP, serum or plasm a eGFR non-afr. japanese 76 mL/mi n/1.7 3m2 > or = 60 normal Not Available [facility] [address], [place], [address], 11/15/2015 06:13:50 11/14/19 16 11/15/2015 CMP, serum or plasm a eGFR 88 mL/mi n/1.7 3m2 > or = 60 normal Not Available [facility] [address], [place], [address], 11/15/2015 06:13:50 11/14/19 16 11/15/2015 CMP, serum or plasm a BUN/creatini ne ratio NOT APPLIC ABLE (calc ) 6-22 Not Available [facility] [address], [place], [address], 11/15/2015 06:13:50 11/14/19 16 11/15/2015 CMP, serum or plasm a sodium 137 mmol/ L 135-14 6 normal Not Available [facility] [address], [place], [address], 11/15/2015 06:13:50 11/14/19 16 11/15/2015 CMP, serum or plasm a potassium 4.3 mmol/ L 3.5-5. 3 normal Not Available [facility] [address], [place], [address], 11/15/2015 06:13:50 11/14/19 16 11/15/2015 CMP, serum or plasm a chloride 100 mmol/ L 98-110 normal Not Available [facility] [address], [place], [address], 11/15/2015 06:13:50 11/14/19 16 11/15/2015 CMP, serum or plasm a carbon dioxide 28 mmol/ L 20-31 normal Not Available [facility] [address], [place], [address], 11/15/2015 06:13:50 11/14/19 16 11/15/2015 CMP, serum or plasm a calcium 8.7 mg/dL 8.6-10 .4 normal Not Available [facility] [address], [place], [address], 11/15/2015 06:13:50 11/14/19 16 11/15/2015 CMP, serum or plasm a protein, total 6.9 g/dL 6.1-8. 1 normal Not Available [facility] [address], [place], [address], 11/15/2015 06:13:50 11/14/19 16 11/15/2015 CMP, serum or plasm a albumin 4.2 g/dL 3.6-5. 1 normal Not Available [facility] [address], [place], [address], 11/15/2015 06:13:50 11/14/19 16 11/15/2015 CMP, serum or plasm a globulin 2.7 g/dL_ (calc ) 1.9-3. 7 normal Not Available [facility] [address], [place], [address], 11/15/2015 06:13:50 11/14/19 16 11/15/2015 CMP, serum or plasm a albumin/glob ulin ratio 1.6 (calc ) 1.0-2. 5 normal Not Available [facility] [address], [place], [address], 11/15/2015 06:13:50 11/14/19 16 11/15/2015 CMP, serum or plasm a bilirubin, total 0.4 mg/dL 0.2-1. 2 normal Not Available [facility] [facility] [address], [place], [address], 11/15/2015 06:13:50 11/14/19 16 11/15/2015 CMP, serum or plasm a alkaline phosphatase 62 U/L 33-130 normal Not Available [facility] [address], [place], [address], 11/15/2015 06:13:50 11/14/19 16 11/15/2015 CMP, serum or plasm a AST 27 U/L 10-35 normal Not Available [facility] [address], [place], [address], 11/15/2015 06:13:50 11/14/19 16 11/15/2015 CMP, serum or plasm a ALT 25 U/L 6-29 normal Not Available [facility] [address], [place], [address], 11/15/2015 06:13:50 11/14/19 16 11/15/2015 eryth rocyt e sedim entat ion rate by westkatlyn lagunasren metho d sed rate by modified lyndseyren 7 mm/h < or = 30 normal Not Available [facility] [address], [place], [address], 11/15/2015 06:13:51 11/14/19 16 11/15/2015 CBC w/ auto diff white blood cell count 4.5 thous and/u L 3.8-10 .8 normal Not Available [facility] [address], [place], [address], 11/15/2015 06:13:51 11/14/19 16 11/15/2015 CBC w/ auto diff red blood cell count 4.67 bere on/uL 3.80-5 .10 normal Not Available [facility] [address], [place], [address], 11/15/2015 06:13:51 11/14/19 16 11/15/2015 CBC w/ auto diff hemoglobin 11.8 g/dL 11.7-1 5.5 normal Not Available [facility] [address], [place], [address], 11/15/2015 06:13:51 11/14/19 16 11/15/2015 CBC w/ auto diff hematocrit 37.8 % 35.0-4 5.0 normal Not Available [facility] [address], [place], [address], 11/15/2015 06:13:51 11/14/19 16 11/15/2015 CBC w/ auto diff MCV 81.0 fL 80.0-1 00.0 normal Not Available [facility] [place] [facility] [address], [place], [address], 11/15/2015 06:13:51 11/14/19 16 11/15/2015 CBC w/ auto diff MCH 25.3 pg 27.0-3 3.0 low Not Available [facility] [place] [facility] [address], [place], [address], 11/15/2015 06:13:51 11/14/19 16 11/15/2015 CBC w/ auto diff MCHC 31.2 g/dL 32.0-3 6.0 low Not Available [facility] [place] [facility] [address], [place], [address], 11/15/2015 06:13:51 11/14/19 16 11/15/2015 CBC w/ auto diff RDW 17.2 % 11.0-1 5.0 high Not Available [facility] [place] [facility] [address], [place], [address], 11/15/2015 06:13:51 11/14/19 16 11/15/2015 CBC w/ auto diff platelet count 188 thous and/u L 140-40 0 normal Not Available [facility] [place] [facility] [address], [place], [address], 11/15/2015 06:13:51 11/14/19 16 11/15/2015 CBC w/ auto diff MPV 8.4 fL 7.5-11 .5 normal Not Available [facility] [address], [place], [address], 11/15/2015 06:13:51 11/14/19 16 11/15/2015 CBC w/ auto diff absolute neutrophils 2178 cells /uL 1500-7 800 normal Not Available [facility] [place] [facility] [address], [place], [address], 11/15/2015 06:13:51 11/14/19 16 11/15/2015 CBC w/ auto diff absolute lymphocytes 1683 cells /uL 850-39 00 normal Not Available [facility] [place] [facility] [address], [place], [address], 11/15/2015 06:13:51 11/14/19 16 11/15/2015 CBC w/ auto diff absolute monocytes 567 cells /uL 200-95 0 normal Not Available [facility] [place] [facility] [address], [place], [address], 11/15/2015 06:13:51 11/14/19 16 11/15/2015 CBC w/ auto diff absolute eosinophils 50 cells /uL 15-500 normal Not Available [facility] [place] [facility] [address], [place], [address], 11/15/2015 06:13:51 11/14/19 16 11/15/2015 CBC w/ auto diff absolute basophils 23 cells /uL 0-200 normal Not Available [facility] [place] [facility] [address], [place], [address], 11/15/2015 06:13:51 11/14/19 16 11/15/2015 CBC w/ auto diff neutrophils 48.4 % normal Not Available [facility] [place] [facility] [address], [place], [address], 11/15/2015 06:13:51 11/14/19 16 11/15/2015 CBC w/ auto diff lymphocytes 37.4 % normal Not Available [facility] [place] [facility] [address], [place], [address], 11/15/2015 06:13:51 11/14/19 16 11/15/2015 CBC w/ auto diff monocytes 12.6 % normal Not Available [facility] [place] [facility] [address], [place], [address], 11/15/2015 06:13:51 11/14/19 16 11/15/2015 CBC w/ auto diff eosinophils 1.1 % normal Not Available [facility] [place] [facility] [address], [place], [address], 11/15/2015 06:13:51 11/14/19 16 11/15/2015 CBC w/ auto diff basophils 0.5 % normal Not Available [facility] [place] [facility] [address], [place], [address], 11/15/2015 06:13:51 11/14/19 16 11/15/2015 HbA1c (hemo globi n A1c), blood estimated average glucose 142.7 mg/dL 97.0-1 40.0 high Not Available [facility] [address] [facility] [address] [place], [address], 11/15/2015 07:54:59 11/14/19 16 11/15/2015 HbA1c (hemo [...] OVASC ULAR COMPL ICATI ONS. Not Available [facility] [address] [facility] [address] [place], [address], 11/15/2015 07:54:59 11/14/19 16 11/16/2015 LDL, direc t, serum direct LDL 65 mg/dL <130 Kirk able range <100 mg/dL for patie nts with CHD or diabe sergio and <70 mg/dL for diabe tic patie nts with known heart disea se. Not Available [facility] [address] [facility] [address] [place], [address], 11/16/2015 11:48:35 11/14/19 16 11/16/2015 1,5-a nhydr [...] COMME NT: EDINSON MILAN A. Not Available [facility] [address] [place], [address], 11/16/2015 11:48:36 11/14/19 16 11/16/2015 T4, free, serum T4, free 1.0 NG/dL 0.8-1. 8 Not Available [facility] [address] [place], [place] [address]y [address] [place], [address], 11/16/2015 17:35:59 11/14/19 16 11/16/2015 TSH, serum or plasm a TSH 1.83 mIU/L 0.40-4 .50 Not Available [facility] [address] [place] [address] [address] [place], [address], 11/16/2015 17:35:59 11/14/19 16 11/16/2015 C-linnette ctive prote in, quant itati ve, serum or plasm a C-reactive protein 0.20 mg/dL <0.80 Pleas e be advis ed that patie nts tanjain g Carbo xypen icill ins may exhib it false ly decre ased C-Hazen ctive Prote in level s due to an roosevelt tical inter feren ce in this assay . Not Available [facility] [address] [place] [address] [address] [place], [address], 11/16/2015 17:35:59 11/14/19 16 11/16/2015 eryth rocyt e sedim entat ion rate by august almaraz metho d sed rate by modified emerita 14 mm/h < or = 30 Not Available [facility] [address] [place] [address] [address] [place], [address], 11/16/2015 17:36:00 11/14/19 16 11/16/2015 vitam in B12 + folat e, serum or blood vitamin B12 415 pg/mL 200-11 00 Not Available [facility] [address] [place] [address] [address] [place], [address], 11/16/2015 17:36:00 11/14/19 16 11/16/2015 vitam in B12 + folat e, serum or blood folate, serum 11.7 NG/mL Refer ence Range Low: <3.4 Borde rline : 3.4-5 .4 Vanessa l: >5.4 Not Available [facility] [address] [place] [address] [address] [place], [address], 11/16/2015 17:36:00 11/14/19 16 11/16/2015 iron + TIBC + kimberley tin, serum iron, total 30 mcg/d L 45-160 low Not Available [facility] [address] [place] [address], [address], 11/16/2015 17:36:01 11/14/19 16 11/16/2015 iron + TIBC + kimberley tin, serum iron binding capacity 451 mcg/d L_(ca lc) 250-45 0 high Not Available [facility] [address] [place] [address], [address], 11/16/2015 17:36:01 11/14/19 16 11/16/2015 iron + TIBC + kimberley tin, serum % saturation 7 %_(ca lc) 11-50 low Not Available [facility] [address] [place] [address], [address], 11/16/2015 17:36:01 11/14/19 16 11/16/2015 iron + TIBC + kimberley tin, serum ferritin 18 NG/mL 10-[address] [facility] [address], [place], [address], 11/16/2015 17:36:01 11/14/19 16 11/16/2015 vitam in B1 (thia mine) , blood vitamin B1 (thiamine), blood 79 nmol/ L 78-185 Vitam in suppl ement ation withi n 24 hours prior to blood draw may affec t the accur acy of the resul ts. This test was devel oped and its roosevelt tical perfo rmanc e brenton cteri stics have been deter mined by [email or web address] s [facility] [place]. It has not been clear ed or appro deana by the U.S. Food and Drug Admin istra tion. This assay has been valid ated pursu ant to the CLIA regul ation s and is used for clini maximo purpo ses. Not Available [facility] [address] [facility], [place], [address], 11/19/2015 10:22:49 11/14/19 16 11/16/2015 vitam in B6 (pyri doxin e), plasm a vitamin B6 6.9 NG/mL 2.1-21 .7 Vitam in suppl ement ation withi n 24 hours prior to blood draw may affec t the accur acy of the resul ts. This test was devel oped and its roosevelt tical perfo rmanc e brenton cteri stics have been deter mined by [email or web address] [facility], [place]. It has not been clear ed or appro deana by the U.S. Food and Drug Admin istra tion. This assay has been valid ated pursu ant to the CLIA regul ation s and is used for clini maximo purpo ses. Not Available [facility] [address], [place], [address], 11/19/2015 10:22:50 11/14/19 16 11/14/2015 venip unctu re venipuncture CHARGE Not Available [facility] [address], [place], [address], 11/14/2015 13:59:26 11/22/19 16 11/24/2015 cultu re, urine culture, urine, routine SEE NOTE CULTU RE, URINE , ROUTI NE MICRO NUMBE R: [id number] TEST STATU S: FINAL SPECI MEN SOURC E: URINE SPECI MEN QUALI TY: ADEQU ATE RESUL T: Multi ple organ isms prese nt, each less than 10,00 0 CFU/m L. These organ isms, commo nly found on exter nal and inter nal genit bronson, are consi dered to be colon izers . No furth er testi ng perfo rmed. Not Available [facility] [address] [facility], [place], [address], 11/24/2015 05:10:54 11/22/19 16 11/24/2015 cultu re, urine culture, urine, routine SEE NOTE CULTU RE, URINE , ROUTI NE MICRO NUMBE R: [id number] TEST STATU S: FINAL SPECI MEN SOURC E: URINE SPECI MEN QUALI TY: ADEQU ATE RESUL T: Multi ple organ isms prese nt, each less than 10,00 0 CFU/m L. These organ isms, commo nly found on exter nal and inter nal genit bronson, are consi dered to be colon izers . No furth er testi ng perfo rmed. Not Available [facility] [address], [place], [address], 11/29/2015 06:33:11 02/16/19 17 02/18/2016 CMP, serum or plasm a glucose 99 mg/dL 65-99 normal Fasti ng refer ence inter inocencio Not Available [facility] [address] [facility] [address] [place], [address], 02/18/2016 09:59:52 02/16/1902/18/2016 CMP, serum or plasm a urea nitrogen (BUN) 14 mg/dL 7-25 normal Not Available [facility] [address] [facility] [address] [place], [address], 02/18/2016 09:59:52 02/16/19 17 02/18/2016 CMP, serum or plasm a creatinine 0.88 mg/dL 0.50-1 .05 normal For patie nts >49 years of age, the refer ence limit for Creat inine is appro ximat mark 13% highe r for peopl e ident ified as Afric an-Am hong n. Not Available [facility] [address] [facility] [address] [place], [address], 02/18/2016 09:59:52 02/16/1902/18/2016 CMP, serum or plasm a eGFR non-afr. japanese 73 mL/mi n/1.7 3m2 > or = 60 normal Not Available [facility] [address] [facility] [address] [place], [address], 02/18/2016 09:59:52 02/16/1902/18/2016 CMP, serum or plasm a eGFR 85 mL/mi n/1.7 3m2 > or = 60 normal Not Available [facility] [address] [facility] [address] [place], [address], 02/18/2016 09:59:52 02/16/1902/18/2016 CMP, serum or plasm a BUN/creatini ne ratio NOT APPLIC ABLE (calc ) 6-22 Not Available [facility] [address] [facility] [address] [place], [address], 02/18/2016 09:59:52 02/16/1902/18/2016 CMP, serum or plasm a sodium 140 mmol/ L 135-14 6 normal Not Available [facility] [address] [place], [place] [address]y [address], [place], [address], 02/18/2016 09:59:52 02/16/1902/18/2016 CMP, serum or plasm a potassium 3.9 mmol/ L 3.5-5. 3 normal Not Available [facility] [address] [place], [place] [address]y [address], [place], [address], 02/18/2016 09:59:52 02/16/1902/18/2016 CMP, serum or plasm a chloride 103 mmol/ L 98-110 normal Not Available [facility] [address] [place], [place] [address] [address] [place], [address], 02/18/2016 09:59:52 02/16/1902/18/2016 CMP, serum or plasm a carbon dioxide 21 mmol/ L 20-31 normal Not Available [facility] [address] [place], [place] [address] [address] [place], [address], 02/18/2016 09:59:52 02/16/1902/18/2016 CMP, serum or plasm a calcium 9.7 mg/dL 8.6-10 .4 normal Not Available [facility] [address] [place], [place] [address] [address] [place], [address], 02/18/2016 09:59:52 02/16/1902/18/2016 CMP, serum or plasm a protein, total 6.6 g/dL 6.1-8. 1 normal Not Available [facility] [address] [place], [place] [address]y [address], [place], [address], 02/18/2016 09:59:52 02/16/1902/18/2016 CMP, serum or plasm a albumin 4.0 g/dL 3.6-5. 1 normal Not Available [facility] [address] [facility] [address], [place], [address], 02/18/2016 09:59:52 02/16/1902/18/2016 CMP, serum or plasm a globulin 2.6 g/dL_ (calc ) 1.9-3. 7 normal Not Available [facility] [address] [place], [place] [address]y [address] [place], [address], 02/18/2016 09:59:52 02/16/1902/18/2016 CMP, serum or plasm a albumin/glob ulin ratio 1.5 (calc ) 1.0-2. 5 normal Not Available [facility] [address] [place], [place] [address]y [address], [place], [address], 02/18/2016 09:59:52 02/16/1902/18/2016 CMP, serum or plasm a bilirubin, total 0.7 mg/dL 0.2-1. 2 normal Not Available [facility] [address] [place], [address], 02/18/2016 09:59:52 02/16/1902/18/2016 CMP, serum or plasm a alkaline phosphatase 54 U/L 33-130 normal Not Available [facility] [address] [place] [address] [address] [place], [address], 02/18/2016 09:59:52 02/16/1902/18/2016 CMP, serum or plasm a AST 22 U/L 10-35 normal Not Available [facility] [address] [place], [place] [address]y [address] [place], [address], 02/18/2016 09:59:52 02/16/1902/18/2016 CMP, serum or plasm a ALT 32 U/L 6-29 high Not Available [facility] [address] [facility] [address] [place], [address], 02/18/2016 09:59:52 02/16/19 17 02/18/2016 eryth rocyt e sedim entat ion rate by august almaraz metho d sed rate by modified lyndseyren 2 mm/h < or = 30 normal Not Available [facility] [address] [place], [place] [address]y [address], [place], [address], 02/18/2016 09:59:53 02/16/19 17 02/19/2016 urina lysis , compl ete color DARK YELLOW yellow normal Not Available [facility] [address] [place], [place] [address]y [address], [place], [address], 02/19/2016 16:55:52 02/16/19 17 02/19/2016 urina lysis , compl ete appearance CLEAR clear normal Not Available [facility] [address] [place], [place] [address] [address] [place], [address], 02/19/2016 16:55:52 02/16/19 17 02/19/2016 urina lysis , compl ete specific gravity 1.018 1.001- 1.035 normal Not Available [facility] [address] [place], [place] [address] [address], [place], [address], 02/19/2016 16:55:52 02/16/19 17 02/19/2016 urina lysis , compl ete pH 6.0 5.0-8. 0 normal Not Available [facility] [address] [place], [place] [address]y [address], [place], [address], 02/19/2016 16:55:52 02/16/19 17 02/19/2016 urina lysis , compl ete glucose NEGATI VE negati ve normal Not Available [facility] [address] [place], [place] [address], [place], [address], 02/19/2016 16:55:52 02/16/1902/19/2016 urina lysis , compl ete bilirubin NEGATI VE negati ve normal Not Available [facility] [address] [facility] [address], [place], [address], 02/19/2016 16:55:52 02/16/19 17 02/19/2016 urina lysis , compl ete ketones NEGATI VE negati ve normal Not Available [facility] [address] [facility] [address], [place], [address], 02/19/2016 16:55:52 02/16/19 17 02/19/2016 urina lysis , compl ete occult blood NEGATI VE negati ve normal Not Available [facility] [address] [facility] [address], [place], [address], 02/19/2016 16:55:52 02/16/19 17 02/19/2016 urina lysis , compl ete protein NEGATI VE negati ve normal Not Available [facility] [address], [place], [address], 02/19/2016 16:55:52 02/16/19 17 02/19/2016 urina lysis , compl ete nitrite NEGATI VE negati ve normal Not Available [facility] [address] [place], [place] [address] [address], [place], [address], 02/19/2016 16:55:52 02/16/19 17 02/19/2016 urina lysis , compl ete leukocyte esterase 1+ negati ve abnormal Not Available [facility] [address], [place], [address], 02/19/2016 16:55:52 02/16/19 17 02/19/2016 urina lysis , compl ete WBC 0-5 /hpf < or = 5 normal Not Available [facility] [address] [facility] [address], [place], [address], 02/19/2016 16:55:52 02/16/19 17 02/19/2016 urina lysis , compl ete RBC NONE SEEN /hpf < or = 2 normal Not Available [facility] [address] [place] [address], [address], 02/19/2016 16:55:52 02/16/19 17 02/19/2016 urina lysis , compl ete squamous epithelial cells 0-5 /hpf < or = 5 Not Available [facility] [address] [place] [address], [address], 02/19/2016 16:55:52 02/16/19 17 02/19/2016 urina lysis , compl ete bacteria NONE SEEN /hpf none seen normal Not Available [facility] [address] [place] [address], [address], 02/19/2016 16:55:52 02/16/19 17 02/19/2016 urina lysis , compl ete hyaline cast NONE SEEN /lpf none seen normal Not Available [facility] [address] [place] [address], [address], 02/19/2016 16:55:52 02/16/19 17 02/19/2016 cultu re, urine culture, urine, routine SEE NOTE CULTU RE, URINE , ROUTI NE MICRO NUMBE R: [id number] TEST STATU S: FINAL SPECI MEN SOURC E: URINE SPECI MEN QUALI TY: ADEQU ATE RESUL T: No Growt h Not Available [facility] [address] [place] [address], [address], 02/19/2016 16:55:53 02/16/19 17 02/19/2016 cultu re, urine reflexive urine culture CULTUR E INDICA LASHELL - RESULT S TO FOLLOW Not Available [facility] [address] [place] [address], [place], [address], 02/20/2016 08:18:09 02/16/1902/20/2016 HbA1c (hemo globi n [...] diabe sergio for child linda. Not Available [facility] [address] [place], [address], 02/20/2016 18:02:08 02/16/19 17 02/20/2016 CBC white blood cell count 6.6 thous and/u L 3.8-10 .8 normal Not Available [facility] [address] [place], [address], 02/20/2016 18:02:09 02/16/19 17 02/20/2016 CBC red blood cell count 5.06 bere on/uL 3.80-5 .10 normal Not Available [facility] [address] [place], [address], 02/20/2016 18:02:09 02/16/19 17 02/20/2016 CBC hemoglobin 13.9 g/dL 11.7-1 5.5 normal Not Available [facility] [address] [place], [address], 02/20/2016 18:02:02/16/19 17 02/20/2016 CBC hematocrit 43.5 % 35.0-4 5.0 normal Not Available [facility] [address], [place], [address], 02/20/2016 18:02:02/16/19 17 02/20/2016 CBC MCV 85.9 fL 80.0-1 00.0 normal Not Available [facility] [address] [facility] [address], [place], [address], 02/20/2016 18:02:02/16/19 17 02/20/2016 CBC MCH 27.6 pg 27.0-3 3.0 normal Not Available [facility] [address] [place], [place] [address] [address] [place], [address], 02/20/2016 18:02:02/16/19 17 02/20/2016 CBC MCHC 32.1 g/dL 32.0-3 6.0 normal Not Available [facility] [address] [place], [place] [address] [address] [place], [address], 02/20/2016 18:02:02/16/19 17 02/20/2016 CBC RDW 16.2 % 11.0-1 5.0 high Not Available [facility] [address] [place], [place] [address]y [address], [place], [address], 02/20/2016 18:02:02/16/19 17 02/20/2016 CBC platelet count 260 thous and/u L 140-40 0 normal Not Available [facility] [address], [place], [address], 02/20/2016 18:02:02/16/19 17 02/20/2016 CBC MPV 9.1 fL 7.5-11 .5 normal Not Available [facility] [address], [place], [address], 02/20/2016 18:02:02/16/19 17 02/20/2016 CBC absolute neutrophils 3835 cells /uL 1500-7 800 normal Not Available [facility] [address], [place], [address], 02/20/2016 18:02:02/16/19 17 02/20/2016 CBC absolute lymphocytes 2138 cells /uL 850-39 00 normal Not Available [facility] [address], [place], [address], 02/20/2016 18:02:02/16/19 17 02/20/2016 CBC absolute monocytes 370 cells /uL 200-95 0 normal Not Available [facility] [address], [place], [address], 02/20/2016 18:02:02/16/19 17 02/20/2016 CBC absolute eosinophils 224 cells /uL 15-500 normal Not Available [facility] [address], [place], [address], 02/20/2016 18:02:02/16/19 17 02/20/2016 CBC absolute basophils 33 cells /uL 0-200 normal Not Available [facility] [address], [place], [address], 02/20/2016 18:02:02/16/19 17 02/20/2016 CBC neutrophils 58.1 % normal Not Avai [facility] [address], [place], [address], 02/20/2016 18:02:02/16/19 17 02/20/2016 CBC lymphocytes 32.4 % normal Not Avai [facility]able [facility] [address], [place], [address], 02/20/2016 18:02:02/16/19 17 02/20/2016 CBC monocytes 5.6 % normal Not Availa ble [facility] [address], [place], [address], 02/20/2016 18:02:02/16/19 17 02/20/2016 CBC eosinophils 3.4 % normal Not Avai [facility]able [facility] [address], [place], [address], 02/20/2016 18:02:02/16/19 17 02/20/2016 CBC basophils 0.5 % normal Not Availa ble [facility] [address] [facility] [address], [place], [address], 02/20/2016 18:02:02/16/19 17 02/20/2016 1,5-a nhydr ogluc itol, serum or plasm a glycomark (R) 24.0 mcg/m L 7.5-28 .4 normal Glyco Everett( R) refer ence range s apply to perso ns witho ut diabe sergio. In peopl e with diabe sergio under good to moder ate glyce edwina contr ol (hemo globi n A1c level s 8% or less) , Glyco Eveertt( R) level s less than 8 mcg/m L sugge st signi fican t glyce edwina varia bilit y, most likel y due to post meal blood gluco se level s incre asing above 180 mg/dL . Not Available [facility] [address], [place], [address], 02/20/2016 18:02:10 02/16/19 17 02/20/2016 vitam in B12 + folat e, serum or blood vitamin B12 441 pg/mL 200-11 00 normal Not Available [facility] [address], [place], [address], 02/20/2016 18:02:10 02/16/19 17 02/20/2016 vitam in B12 + folat e, serum or blood folate, serum 10.9 NG/mL normal Refer ence Range Low: <3.4 Borde rline : 3.4-5 .4 Vanessa l: >5.4 Not Available [facility] [address] [facility] [address], [place], [address], 02/20/2016 18:02:10 02/16/19 17 02/20/2016 iron + TIBC + kimberley tin, serum iron, total 90 mcg/d L 45-160 normal Not Available [facility] [address] [facility] [address], [place], [address], 02/20/2016 18:02:10 02/16/19 17 02/20/2016 iron + TIBC + kimberley tin, serum iron binding capacity 397 mcg/d L_(ca lc) 250-45 0 normal Not Available [facility] [address] [facility] [address], [place], [address], 02/20/2016 18:02:10 02/16/19 17 02/20/2016 iron + TIBC + kimberley tin, serum % saturation 23 %_(ca lc) 11-50 normal Not Available [facility] [address] [facility] [address] [place], [address], 02/20/2016 18:02:10 02/16/1902/20/2016 iron + TIBC + kimberley tin, serum ferritin 26 NG/mL 10-232 normal Not Available [facility] [address] [facility] [address], [place], [address], 02/20/2016 18:02:10 02/16/19 17 02/20/2016 lipid panel , serum cholesterol, total 130 mg/dL 125-20 0 normal Not Available [facility] [facility] [address], [place], [address], 02/20/2016 18:02:11 02/16/1902/20/2016 lipid panel , serum HDL cholesterol 47 mg/dL > or = 46 normal Not Available [facility] [address] [facility] [address], [place], [address], 02/20/2016 18:02:11 02/16/19 17 02/20/2016 lipid panel , serum triglyceride s 92 mg/dL <150 normal Not Available [facility] [address] [facility] [address], [place], [address], 02/20/2016 18:02:11 02/16/1902/20/2016 lipid panel , serum direct LDL 70 mg/dL <130 normal Kirk able range <100 mg/dL for patie nts with CHD or diabe sergio and <70 mg/dL for diabe tic patie nts with known heart disea se. Not Available [facility] [address] [facility] [address] [facility], [place], [address], 02/20/2016 18:02:11 02/16/1902/20/2016 lipid panel , serum chol/HDLC ratio 2.8 (calc ) < or = 5.0 normal Not Available [facility] [address] [facility] [address] [place], [address], 02/20/2016 18:02:11 02/16/1902/20/2016 lipid panel , serum non HDL cholesterol 83 mg/dL _(maximo c) normal Targe t for non-H DL troy stero l is 30 mg/dL highe r than LDL troy stero l targe t. Not Available [facility] [address] [facility] [address], [place], [address], 02/20/2016 18:02:11 02/16/19 17 02/17/2016 venip unctu re results Compl ete Not Available [facility] [address], [place], [address], 02/17/2016 15:55:13 02/21/19 17 02/23/2016 fecal occul t blood , immun oassa y, stool immunoassay occult blood NEGATI VE Not Available [facility] [address] [facility] [address], [place], [address], 02/23/2016 08:43:53 02/21/19 17 02/24/2016 micro album in/cr eatin ine, ratio , 24h urine microalbumin , 24 hour ur 7 mg/24 _h <30 normal Not Available [facility] [address] [facility] [address], [place], [address], 02/24/2016 13:00:54 02/21/19 17 02/24/2016 micro album [...] ory. Not Available [facility] [address] [facility] [address], [place], [address], 02/24/2016 13:00:54 02/21/19 17 02/24/2016 micro album in/cr eatin ine, ratio , 24h urine creatinine, 24 hour urine 1.45 g/24_ h 0.63-2 .50 normal Not Available [facility] [address], [place], [address], 02/24/2016 13:00:54 03/27/19 17 03/28/2016 CBC WBC 6.1 x10^3 /uL 4.4-11 .0 Not Available [facility] [address], [place], [address], 03/28/2016 12:28:12 03/27/19 17 03/28/2016 CBC RBC 4.84 x10^6 /uL 4.50-5 .10 Not Available [facility] [address], [place], [address], 03/28/2016 12:28:12 03/27/19 17 03/28/2016 CBC HGB 13.5 g/dL 12.3-1 5.3 Not Available [facility] [address] [place] [address] [address], [place], [address], 03/28/2016 12:28:12 03/27/19 17 03/28/2016 CBC HCT 41.5 % 35.9-4 4.6 Not Available [facility] [address], [place], [address], 03/28/2016 12:28:12 03/27/19 17 03/28/2016 CBC MCV 85.6 fL 80.0-9 6.0 Not Available [facility] [address] [place] [address] [address], [place], [address], 03/28/2016 12:28:12 03/27/19 17 03/28/2016 CBC MCH 27.9 pg 27.5-3 3.2 Not Available [facility] [address], [place], [address], 03/28/2016 12:28:12 03/27/19 17 03/28/2016 CBC MCHC 32.5 g/dL 33.4-3 5.5 low Not Available [facility] [address], [place], [address], 03/28/2016 12:28:12 03/27/19 17 03/28/2016 CBC RDW 14.2 % 11.6-1 3.7 high Not Available [facility], [place], [address], 03/28/2016 12:28:12 03/27/19 17 03/28/2016 CBC plt 249 x10^3 /uL 150-45 0 Not Available [facility], [place], [address], 03/28/2016 12:28:12 03/27/19 17 03/28/2016 CBC MPV 9.6 fL 7.4-10 .4 Not Available [facility], [place], [address], 03/28/2016 12:28:12 03/27/19 17 03/28/2016 CBC neut # 3.4 x10^3 /uL 1.5-7. 2 Not Available [facility], [place], [address], 03/28/2016 12:28:12 03/27/19 17 03/28/2016 CBC lymph# 1.9 x10^3 /uL 0.7-4. 9 Not Available [facility] [address] [place] [address] [address], [place], [address], 03/28/2016 12:28:12 03/27/19 17 03/28/2016 CBC mono# 0.5 x10^3 /uL 0.1-0. 9 Not Available [facility], [place], [address], 03/28/2016 12:28:12 03/27/19 17 03/28/2016 CBC eos # 0.2 x10^3 /uL 0.0-0. 4 Not Available [facility] [address], [place], [address], 03/28/2016 12:28:12 03/27/19 17 03/28/2016 CBC baso # 0.1 x10^3 /uL 0.0-0. 2 Not Available [facility] [address], [place], [address], 03/28/2016 12:28:12 03/27/19 17 03/28/2016 CBC neut % 55.5 % 42.2-7 5.2 Not Available [facility] [address], [place], [address], 03/28/2016 12:28:12 03/27/19 17 03/28/2016 CBC mono% 7.9 % 1.7-9. 3 Not Available [facility], [place], [address], 03/28/2016 12:28:12 03/27/1903/28/2016 CBC eos% 3.8 % 1.0-6. 0 Not Available [facility], [place], [address], 03/28/2016 12:28:12 03/27/1903/28/2016 CBC baso% 0.9 % 0.0-4. 0 Not Available [facility] [address], [place], [address], 03/28/2016 12:28:12 03/27/1903/28/2016 CBC lymph % 31.9 % 20.5-5 1.1 Not Available [facility] [address], [place], [address], 03/28/2016 12:28:12 03/27/19 17 03/28/2016 eryth rocyt e sedim entat ion rate by august rgren metho d sed rate 11 mm/HR 0-[address] [facility] [address] [facility] [address], [place], [address], 03/28/2016 12:28:13 03/27/19 17 03/28/2016 CMP, serum or plasm a sodium 139 mmol/ L 136-14 5 Not Available [facility] [address] [place], [place] [address], [place], [address], 03/28/2016 12:28:13 03/27/19 17 03/28/2016 CMP, serum or plasm a potassium 4.2 mmol/ L 3.6-5. 2 Not Available [facility] [address] [place], [place] [address] [place], [address], 03/28/2016 12:28:13 03/27/19 17 03/28/2016 CMP, serum or plasm a chloride 102 mmol/ L 98-108 Not Available [facility] [address] [place], [place] [address]y [address] [place], [address], 03/28/2016 12:28:13 03/27/19 17 03/28/2016 CMP, serum or plasm a carbon dioxide 29 mmol/ L 18-33 Not Available [facility] [address] [place], [place] [address] [place], [address], 03/28/2016 12:28:13 03/27/1903/28/2016 CMP, serum or plasm a glucose 119 mg/dL 65-99 high Not Available [facility] [address] [facility] [address] [place], [address], 03/28/2016 12:28:13 03/27/19 17 03/28/2016 CMP, serum or plasm a BUN 23 mg/dL 7-18 high Not Available [facility] [address] [facility] [address] [place], [address], 03/28/2016 12:28:13 03/27/19 17 03/28/2016 CMP, serum or plasm a creatinine 0.8 mg/dL 0.8-1. 3 Not Available [facility] [address] [place], [place] [address], [place], [address], 03/28/2016 12:28:13 03/27/1903/28/2016 CMP, serum or plasm a BUN/creat ratio 28.8 calc 10.0-2 5.0 high Not Available [facility] [address] [place], [place] [address], [place], [address], 03/28/2016 12:28:13 03/27/19 17 03/28/2016 CMP, serum or plasm a calcium 9.7 mg/dL 8.5-10 .6 Not Available [facility] [address] [place], [place] [address], [place], [address], 03/28/2016 12:28:13 03/27/19 17 03/28/2016 CMP, serum or plasm a total protein 6.8 g/dL 6.4-8. 1 Not Available [facility] [address] [place], [place] [address], [place], [address], 03/28/2016 12:28:13 03/27/19 17 03/28/2016 CMP, serum or plasm a albumin 4.2 g/dL 3.3-5. 5 Not Available [facility] [address] [place], [place] [address], [place], [address], 03/28/2016 12:28:13 03/27/1903/28/2016 CMP, serum or plasm a globulin 2.6 g/dL 1.3-4. 0 Not Available [facility] [address] [place], [place] [address]y [address] [place], [address], 03/28/2016 12:28:13 03/27/19 17 03/28/2016 CMP, serum or plasm a A/G ratio 1.6 calc 1.0-2. 8 Not Available [facility] [address] [place] [address], [address], 03/28/2016 12:28:13 03/27/19 17 03/28/2016 CMP, serum or plasm a alk. phosphatase 71 U/L 50-128 Not Available [facility] [address] [place] [address], [address], 03/28/2016 12:28:13 03/27/1903/28/2016 CMP, serum or plasm a ALT (SGPT) 29 U/L 10-47 Not Available [facility] [address] [place] [address], [address], 03/28/2016 12:28:13 03/27/19 17 03/28/2016 CMP, serum or plasm a AST (SGOT) 18 U/L 11-38 Not Available [facility] [address] [place] [address], [address], 03/28/2016 12:28:13 03/27/19 17 03/28/2016 CMP, serum or plasm a total bilirubin 0.52 mg/dL 0.20-1 .60 Not Available [facility] [address] [place] [address], [address], 03/28/2016 12:28:13 03/27/1903/28/2016 CMP, serum or plasm a GFR >60.0 >=60.0 IF PATIE NT IS AFRIC AN AMERI CAN, MULTI PLY RESUL T BY 1.21 Not Available [facility] [address] [place] [address] [address] [place], [address], 03/28/2016 12:28:13 03/27/1903/28/2016 C-linnette ctive prote in, quant itati ve, serum or plasm a CRP 0.08 mg/dL 0.02-1 .00 Not Available [facility] [address] [place] [address] [address] [facility], [place], [address], 03/28/2016 12:28:14 03/27/19 17 03/27/2016 venip unctu re results Compl ete Not Available [facility] [address] [place] [address], [address], 03/27/2016 13:15:17 05/19/19 17 05/18/2016 urina lysis , compl ete color YELLOW Not Available [facility] [address] [place] [address], [address], 05/18/2016 19:19:41 05/19/19 17 05/18/2016 urina lysis , compl ete appearance CLEAR clear Not Available [facility] [address] [place] [address], [address], 05/18/2016 19:19:41 05/19/19 17 05/18/2016 urina lysis , compl ete specific gravity 1.023 Not Available [facility] [address] [place] [address], [address], 05/18/2016 19:19:41 05/19/19 17 05/18/2016 urina lysis , compl ete pH 6.0 Not Available [facility] [address] [place] [address], [address], 05/18/2016 19:19:41 05/19/19 17 05/18/2016 urina lysis , compl ete glucose NEGATI VE negati ve Not Available [facility] [address] [place] [address] [address] [place], [address], 05/18/2016 19:19:41 05/19/19 17 05/18/2016 urina lysis , compl ete bilirubin NEGATI VE negati ve Not Available [facility] [address] [place] [address], [address], 05/18/2016 19:19:41 05/19/19 17 05/18/2016 urina lysis , compl ete ketone NEGATI VE negati ve Not Available [facility] [address] [place] [address], [address], 05/18/2016 19:19:41 05/19/19 17 05/18/2016 urina lysis , compl ete blood NEGATI VE negati ve Not Available [facility] [address] [place] [address], [address], 05/18/2016 19:19:41 05/19/19 17 05/18/2016 urina lysis , compl ete protein NEGATI VE negati ve Not Available [facility] [address] [place] [address], [address], 05/18/2016 19:19:41 05/19/19 17 05/18/2016 urina lysis , compl ete urobilinogen NORMAL Not Available [facility] [address] [place] [address], [address], 05/18/2016 19:19:41 05/19/19 17 05/18/2016 urina lysis , compl ete nitrite NEGATI VE negati ve Not Available [facility] [address] [place] [address], [address], 05/18/2016 19:19:41 05/19/19 17 05/18/2016 urina lysis , compl ete leukocytes NEGATI VE negati ve A cultu re will refle x when the follo wing crite marcy is met: posit percy nitri te small leuko cytes or great er or >6 WBC/h pf 4+ bacte marcy on micro scopi c exam any amoun t of yeast on micro scopi c exam. Not Available [facility] [address] [facility] [address] [place], [address], 05/18/2016 19:19:41 05/19/19 17 05/18/2016 HbA1c (hemo globi n A1c), blood estimated average glucose 125.5 mg/dL 97.0-1 40.0 Not Available [facility] [address] [facility] [address] [place], [address], 05/18/2016 20:36:41 05/19/19 17 05/18/2016 HbA1c (hemo [...] OVASC ULAR COMPL ICATI ONS. Not Available [facility] [address] [facility] [address] [place], [address], 05/18/2016 20:36:41 05/19/19 17 05/19/2016 CBC white blood cell count 6.3 thous and/u L 3.8-10 .8 normal Not Available [facility] [address] [place] [address] [address] [place], [address], 05/19/2016 01:49:23 05/19/19 17 05/19/2016 CBC red blood cell count 4.70 bere on/uL 3.80-5 .10 normal Not Available [facility] [address] [facility] [address] [place], [address], 05/19/2016 01:49:23 05/19/19 17 05/19/2016 CBC hemoglobin 13.6 g/dL 11.7-1 5.5 normal Not Available [facility] [address] [place] [address] [address] [place], [address], 05/19/2016 01:49:23 05/19/1905/19/2016 CBC hematocrit 40.2 % 35.0-4 5.0 normal Not Available [facility] [address] [place] [address] [address], [place], [address], 05/19/2016 01:49:23 05/19/1905/19/2016 CBC MCV 85.5 fL 80.0-1 00.0 normal Not Available [facility] [address] [place] [address] [address] [place], [address], 05/19/2016 01:49:23 05/19/1905/19/2016 CBC MCH 28.9 pg 27.0-3 3.0 normal Not Available [facility] [address] [place] [address] [address] [place], [address], 05/19/2016 01:49:23 05/19/1905/19/2016 CBC MCHC 33.8 g/dL 32.0-3 6.0 normal Not Available [facility] [address] [place] [address] [address] [place], [address], 05/19/2016 01:49:23 05/19/1905/19/2016 CBC RDW 13.0 % 11.0-1 5.0 normal Not Available [facility] [address] [place] [address] [address] [place], [address], 05/19/2016 01:49:23 05/19/1905/19/2016 CBC platelet count 259 thous and/u L 140-40 0 normal Not Available [facility] [address] [place] [address] [address], [place], [address], 05/19/2016 01:49:23 05/19/1905/19/2016 CBC MPV 11.2 fL 7.5-12 .5 normal Not Available [facility] [address], [place], [address], 05/19/2016 01:49:23 05/19/19 17 05/19/2016 CBC absolute neutrophils 3686 cells /uL 1500-7 800 normal Not Available [facility] [address], [place], [address], 05/19/2016 01:49:23 05/19/19 17 05/19/2016 CBC absolute lymphocytes 1922 cells /uL 850-39 00 normal Not Available [facility] [address], [place], [address], 05/19/2016 01:49:23 05/19/1905/19/2016 CBC absolute monocytes 410 cells /uL 200-95 0 normal Not Available [facility] [address] [place], [place] [address], [place], [address], 05/19/2016 01:49:23 05/19/1905/19/2016 CBC absolute eosinophils 233 cells /uL 15-500 normal Not Available [facility] [address] [place], [address], 05/19/2016 01:49:23 05/19/1905/19/2016 CBC absolute basophils 50 cells /uL 0-200 normal Not Available [facility] [address] [place], [address], 05/19/2016 01:49:23 05/19/1905/19/2016 CBC neutrophils 58.5 % normal Not Avai lable [facility] [address], [place], [address], 05/19/2016 01:49:23 05/19/19 17 05/19/2016 CBC lymphocytes 30.5 % normal Not Avai lable [facility] [address], [place], [address], 05/19/2016 01:49:23 05/19/19 17 05/19/2016 CBC monocytes 6.5 % normal Not Avail[facility] [address] [place], [address], 05/19/2016 01:49:23 05/19/1905/19/2016 CBC eosinophils 3.7 % normal Not Avai [facility]able [facility] [address] [facility] [address], [place], [address], 05/19/2016 01:49:23 05/19/1905/19/2016 CBC basophils 0.8 % normal Not Availa ble [facility] [address] [facility] [address] [place], [address], 05/19/2016 01:49:23 05/19/1905/21/2016 CMP, serum or plasm a glucose 100 mg/dL 65-99 high Fasti ng refer ence inter inocencio For someo ne witho ut known diabe sergio, a gluco se value betwe en 100 and 125 mg/dL is consi stent with predi abete s and shoul d be confi rmed with a follo w-up test. Not Available [facility] [address] [facility] [address] [place], [address], 05/21/2016 12:58:37 05/19/1905/21/2016 CMP, serum or plasm a urea nitrogen (BUN) 25 mg/dL 7-25 normal Not Available [facility] [address] [facility] [address], [place], [address], 05/21/2016 12:58:37 05/19/1905/21/2016 CMP, serum or plasm a creatinine 0.73 mg/dL 0.50-1 .05 normal For patie nts >49 years of age, the refer ence limit for Creat inine is appro ximat mark 13% highe r for peopl e ident ified as Afric an-Am hong n. Not Available [facility] [address] [place], [place] [address]y [address] [place], [address], 05/21/2016 12:58:37 05/19/19 17 05/21/2016 CMP, serum or plasm a eGFR non-afr. japanese 91 mL/mi n/1.7 3m2 > or = 60 normal Not Available [facility] [address] [place], [place] [address] [address] [place], [address], 05/21/2016 12:58:37 05/19/19 17 05/21/2016 CMP, serum or plasm a eGFR 106 mL/mi n/1.7 3m2 > or = 60 normal Not Available [facility] [address] [place] [address] [address] [place], [address], 05/21/2016 12:58:37 05/19/19 17 05/21/2016 CMP, serum or plasm a BUN/creatini ne ratio NOT APPLIC ABLE (calc ) 6-22 Not Available [facility] [address] [place], [place] [address] [address] [place], [address], 05/21/2016 12:58:37 05/19/19 17 05/21/2016 CMP, serum or plasm a sodium 138 mmol/ L 135-14 6 normal Not Available [facility] [address] [place] [address] [address] [place], [address], 05/21/2016 12:58:37 05/19/19 17 05/21/2016 CMP, serum or plasm a potassium 4.3 mmol/ L 3.5-5. 3 normal Not Available [facility] [address] [place], [place] [address] [address] [place], [address], 05/21/2016 12:58:37 05/19/19 17 05/21/2016 CMP, serum or plasm a chloride 102 mmol/ L 98-110 normal Not Available [facility] [address] [place] [address], [address], 05/21/2016 12:58:37 05/19/19 17 05/21/2016 CMP, serum or plasm a carbon dioxide 25 mmol/ L 20-31 normal Not Available [facility] [address] [place] [address], [address], 05/21/2016 12:58:37 05/19/19 17 05/21/2016 CMP, serum or plasm a calcium 9.3 mg/dL 8.6-10 .4 normal Not Available [facility] [address] [place] [address], [address], 05/21/2016 12:58:37 05/19/19 17 05/21/2016 CMP, serum or plasm a protein, total 6.8 g/dL 6.1-8. 1 normal Not Available [facility] [address] [place] [address], [address], 05/21/2016 12:58:37 05/19/19 17 05/21/2016 CMP, serum or plasm a albumin 4.2 g/dL 3.6-5. 1 normal Not Available [facility] [address] [place] [address], [address], 05/21/2016 12:58:37 05/19/19 17 05/21/2016 CMP, serum or plasm a globulin 2.6 g/dL_ (calc ) 1.9-3. 7 normal Not Available [facility] [address] [place] [address], [address], 05/21/2016 12:58:37 05/19/19 17 05/21/2016 CMP, serum or plasm a albumin/glob ulin ratio 1.6 (calc ) 1.0-2. 5 normal Not Available [facility] [address] [place] [address], [address], 05/21/2016 12:58:37 05/19/19 17 05/21/2016 CMP, serum or plasm a bilirubin, total 0.7 mg/dL 0.2-1. 2 normal Not Available [facility] [address] [place] [address] [address] [place], [address], 05/21/2016 12:58:37 05/19/19 17 05/21/2016 CMP, serum or plasm a alkaline phosphatase 50 U/L 33-130 normal Not Available [facility] [address] [place] [address], [address], 05/21/2016 12:58:37 05/19/19 17 05/21/2016 CMP, serum or plasm a AST 21 U/L 10-35 normal Not Available [facility] [address] [place] [address], [address], 05/21/2016 12:58:37 05/19/19 17 05/21/2016 CMP, serum or plasm a ALT 30 U/L 6-29 high Not Available [facility] [address] [place] [address], [address], 05/21/2016 12:58:37 05/19/1905/21/2016 iron + TIBC + kimberley tin, serum iron, total 66 mcg/d L 45-160 normal Not Available [facility] [address] [place] [address] [address] [place], [address], 05/21/2016 12:58:37 05/19/1905/21/2016 iron + TIBC + kimberley tin, serum iron binding capacity 434 mcg/d L_(ca lc) 250-45 0 normal Not Available [facility] [address] [place] [address], [address], 05/21/2016 12:58:37 05/19/19 17 05/21/2016 iron + TIBC + kimberley tin, serum % saturation 15 %_(ca lc) 11-50 normal Not Available [facility] [address], [place], [address], 05/21/2016 12:58:37 05/19/19 17 05/21/2016 iron + TIBC + kimberley tin, serum ferritin 18 NG/mL 10-232 normal Not Available [facility] [address], [place], [address], 05/21/2016 12:58:37 05/19/19 17 05/21/2016 lipid panel , serum cholesterol, total 126 mg/dL 125-20 0 normal Not Available [facility] [facility] [address] [facility] [address], [place], [address], 05/21/2016 12:58:38 05/19/19 17 05/21/2016 lipid panel , serum HDL cholesterol 51 mg/dL > or = 46 normal Not Available [facility] [address] [facility] [address], [place], [address], 05/21/2016 12:58:38 05/19/19 17 05/21/2016 lipid panel , serum triglyceride s 56 mg/dL <150 normal Not Available [facility] [address] [facility] [address], [place], [address], 05/21/2016 12:58:38 05/19/1905/21/2016 lipid panel , serum direct LDL 73 mg/dL <130 normal Kirk able range <100 mg/dL for patie nts with CHD or diabe sergio and <70 mg/dL for diabe tic patie nts with known heart disea se. Not Available [facility] [address] [facility] [address], [place], [address], 05/21/2016 12:58:38 05/19/1905/21/2016 lipid panel , serum chol/HDLC ratio 2.5 (calc ) < or = 5.0 normal Not Available [facility] [address] [facility] [address] [place], [address], 05/21/2016 12:58:38 05/19/19 17 05/21/2016 lipid panel , serum non HDL cholesterol 75 mg/dL _(maximo c) normal Targe t for non-H DL troy stero l is 30 mg/dL highe r than LDL troy stero l targe t. Not Available [facility] [address] [facility] [address], [place], [address], 05/21/2016 12:58:38 05/19/19 17 05/21/2016 rf (rheu matoi d facto r), serum rheumatoid factor 5 IU/mL <14 normal Not Available [facility] [address] [facility] [address] [place], [address], 05/21/2016 12:58:39 05/19/19 17 05/21/2016 1,5-a nhydr [...] asing above 180 mg/dL . Not Available [facility] [address] [facility] [address], [place], [address], 05/21/2016 12:58:39 05/19/19 17 05/18/2016 venip unctu re results Compl ete Not Available [facility] [address], [place], [address], 05/18/2016 10:30:06 06/20/19 17 06/20/2016 CBC WBC 7.7 x10^3 /uL 4.4-11 .0 Not Available [facility] [address] [place] [address] [address], [place], [address], 06/20/2016 09:58:20 06/20/1906/20/2016 CBC RBC 4.74 x10^6 /uL 4.50-5 .10 Not Available [facility] [address] [place], [place] [address]y [address], [place], [address], 06/20/2016 09:58:20 06/20/1906/20/2016 CBC HGB 13.5 g/dL 12.3-1 5.3 Not Available [facility] [address] [place], [place] [address]y [address] [place], [address], 06/20/2016 09:58:20 06/20/1906/20/2016 CBC HCT 41.8 % 35.9-4 4.6 Not Available [facility] [address] [place], [place] [address]y [address], [place], [address], 06/20/2016 09:58:20 06/20/1906/20/2016 CBC MCV 88.2 fL 80.0-9 6.0 Not Available [facility] [address] [place], [place] [address]y [address], [place], [address], 06/20/2016 09:58:20 06/20/1906/20/2016 CBC MCH 28.5 pg 27.5-3 3.2 Not Available [facility] [address] [place] [address] [address], [place], [address], 06/20/2016 09:58:20 06/20/1906/20/2016 CBC MCHC 32.4 g/dL 33.4-3 5.5 low Not Available [facility] [address], [place], [address], 06/20/2016 09:58:20 06/20/1906/20/2016 CBC RDW 13.6 % 11.6-1 5.0 Not Available [facility], [place], [address], 06/20/2016 09:58:20 06/20/1906/20/2016 CBC plt 271 x10^3 /uL 150-45 0 Not Available [facility], [place], [address], 06/20/2016 09:58:20 06/20/1906/20/2016 CBC MPV 9.6 fL 7.4-10 .4 Not Available [facility] [address] [place] [address] [address], [place], [address], 06/20/2016 09:58:20 06/20/1906/20/2016 CBC neut # 4.7 x10^3 /uL 1.5-7. 2 Not Available [facility], [place], [address], 06/20/2016 09:58:20 06/20/1906/20/2016 CBC lymph# 2.1 x10^3 /uL 0.7-4. 9 Not Available [facility], [place], [address], 06/20/2016 09:58:20 06/20/1906/20/2016 CBC mono# 0.5 x10^3 /uL 0.1-0. 9 Not Available [facility], [place], [address], 06/20/2016 09:58:20 06/20/1906/20/2016 CBC eos # 0.3 x10^3 /uL 0.0-0. 4 Not Available [facility] [address], [place], [address], 06/20/2016 09:58:20 06/20/19 17 06/20/2016 CBC baso # 0.1 x10^3 /uL 0.0-0. 2 Not Available [facility] [address], [place], [address], 06/20/2016 09:58:20 06/20/1906/20/2016 CBC neut % 61.0 % 42.2-7 5.2 Not Available [facility] [address], [place], [address], 06/20/2016 09:58:20 06/20/1906/20/2016 CBC mono% 6.0 % 1.7-9. 3 Not Available [facility] [address], [place], [address], 06/20/2016 09:58:20 06/20/1906/20/2016 CBC eos% 4.5 % 1.0-6. 0 Not Available [facility], [place], [address], 06/20/2016 09:58:20 06/20/1906/20/2016 CBC baso% 0.7 % 0.0-4. 0 Not Available [facility] [address], [place], [address], 06/20/2016 09:58:20 06/20/1906/20/2016 CBC lymph % 27.8 % 20.5-5 1.1 Not Available [facility] [address], [place], [address], 06/20/2016 09:58:20 06/20/1906/20/2016 CMP, serum or plasm a glucose 141 mg/dL 65-99 high Fasti ng refer ence inter inocencio For someo ne witho ut known diabe sergio, a gluco se value >125 mg/dL indic ates that they may have diabe sergio and this shoul d be confi rmed with a follo w-up test. Not Available [facility] [address], [place], [address], 06/20/2016 12:34:33 06/20/1906/20/2016 CMP, serum or plasm a urea nitrogen (BUN) 19 mg/dL 7-25 normal Not Available [facility] [address], [place], [address], 06/20/2016 12:34:33 06/20/1906/20/2016 CMP, serum or plasm a creatinine 0.91 mg/dL 0.50-1 .05 normal For patie nts >49 years of age, the refer ence limit for Creat inine is appro ximat mark 13% highe r for peopl e ident ified as Afric an-Am hong n. Not Available [facility] [address], [place], [address], 06/20/2016 12:34:33 06/20/1906/20/2016 CMP, serum or plasm a eGFR non-afr. japanese 70 mL/mi n/1.7 3m2 > or = 60 normal Not Available [facility] [address], [place], [address], 06/20/2016 12:34:33 06/20/1906/20/2016 CMP, serum or plasm a eGFR 81 mL/mi n/1.7 3m2 > or = 60 normal Not Available [facility] [address], [place], [address], 06/20/2016 12:34:33 06/20/19 17 06/20/2016 CMP, serum or plasm a BUN/creatini ne ratio NOT APPLIC ABLE (calc ) 6-22 Not Available [facility] [address] [place] [address] [address] [place], [address], 06/20/2016 12:34:33 06/20/19 17 06/20/2016 CMP, serum or plasm a sodium 139 mmol/ L 135-14 6 normal Not Available [facility] [address] [place] [address] [address] [place], [address], 06/20/2016 12:34:33 06/20/1906/20/2016 CMP, serum or plasm a potassium 4.4 mmol/ L 3.5-5. 3 normal Not Available [facility] [address] [place] [address], [address], 06/20/2016 12:34:33 06/20/19 17 06/20/2016 CMP, serum or plasm a chloride 100 mmol/ L 98-110 normal Not Available [facility] [address] [place] [address] [address] [place], [address], 06/20/2016 12:34:33 06/20/19 17 06/20/2016 CMP, serum or plasm a carbon dioxide 33 mmol/ L 20-31 high Not Available [facility] [address] [place] [address] [address] [place], [address], 06/20/2016 12:34:33 06/20/1906/20/2016 CMP, serum or plasm a calcium 10.0 mg/dL 8.6-10 .4 normal Not Available [facility] [address] [place] [address] [address] [place], [address], 06/20/2016 12:34:33 06/20/19 17 06/20/2016 CMP, serum or plasm a protein, total 6.8 g/dL 6.1-8. 1 normal Not Available [facility] [address] [place] [address], [address], 06/20/2016 12:34:33 06/20/19 17 06/20/2016 CMP, serum or plasm a albumin 4.2 g/dL 3.6-5. 1 normal Not Available [facility] [address] [place] [address], [address], 06/20/2016 12:34:33 06/20/19 17 06/20/2016 CMP, serum or plasm a globulin 2.6 g/dL_ (calc ) 1.9-3. 7 normal Not Available [facility] [address] [place] [address], [address], 06/20/2016 12:34:33 06/20/19 17 06/20/2016 CMP, serum or plasm a albumin/glob ulin ratio 1.6 (calc ) 1.0-2. 5 normal Not Available [facility] [address] [place] [address], [address], 06/20/2016 12:34:33 06/20/1906/20/2016 CMP, serum or plasm a bilirubin, total 0.5 mg/dL 0.2-1. 2 normal Not Available [facility] [address] [place] [address], [address], 06/20/2016 12:34:33 06/20/1906/20/2016 CMP, serum or plasm a alkaline phosphatase 61 U/L 33-130 normal Not Available [facility] [address] [place] [address], [address], 06/20/2016 12:34:33 06/20/19 17 06/20/2016 CMP, serum or plasm a AST 25 U/L 10-35 normal Not Available [facility] [address] [place] [address], [place], [address], 06/20/2016 12:34:33 06/20/19 17 06/20/2016 CMP, serum or plasm a ALT 35 U/L 6-29 high Not Available [facility] [address] [place] [address] [address] [place], [address], 06/20/2016 12:34:33 06/20/19 17 06/20/2016 C-linnette ctive prote in, quant itati ve, serum or plasm a C-reactive protein <0.10 mg/dL <0.80 normal Pleas e be advis ed that patie nts takin g Carbo xypen icill ins may exhib it false ly decre ased C-Linnette ctive Prote in level s due to an roosevelt tical inter feren ce in this assay . Not Available [facility] [address] [place] [address], [address], 06/20/2016 12:34:33 06/20/19 17 06/20/2016 eryth rocyt e sedim entat ion rate by august almaraz metho d sed rate by modified lyndseyren 2 mm/h < or = 30 normal Not Available [facility] [address] [place] [address] [address] [place], [address], 06/20/2016 12:34:34 06/20/19 17 06/19/2016 venip unctu re results Compl ete Not Available [facility] [address] [place] [address] [address] [place], [address], 06/19/2016 12:21:17 04/10/19 17 04/10/2016 MAMMO , scree kevin, digit al, bilat eral No observ ation record ed. [facility] ([facility]) [address], [place], [address], 06/26/2016 14:00:06 04/10/19 17 04/10/2016 bone densi ty study No observ ation record ed. [address] [facility]) [address], [place], [address], 06/26/2016 14:00:06 04/10/19 17 04/10/2016 bone densi ty study No observ ation record ed. [place] [address] [facility] [address], [place], [address], 06/26/2016 14:00:06 04/18/19 17 04/10/2016 dual energ y x-ray absor ptiom etry No observ ation record ed. [address] [facility] [address] [facility] [address], [place], [address], 06/26/2016 14:00:06 06/28/19 17 elect rocar diogr am No observ ation record ed. flemoine Not Available 2016 18:03:08 Result Notes None recorded. Problems Name Problem SNOMED Code Status Onset Date Resolution Date Notes Provider Name and Address Organization Details Recorded Time Knee pain Completed 05/03/2014 Melodie willard [facility], [facility] 6 15:12:08 Multiple complicatio ns of type II diabetes mellitus Active Melodie willard [facility], [facility] 6 15:12:08 Sciatica [id number] Completed 05/03/2014 Melodie willard [facility], [facility] 6 15:12:08 Essential hypertensio n 57175746 Completed 06/27/2016 Rakesh Clark Jr, MD [address] [address], [place], [address] [place] [address] Physician Group, [facility] 7 14:59:25 Obesity 711865970 Active Melodie willard [facility], [facility] 6 15:12:08 Sinusitis 25363452 Completed 05/03/2014 Melodie willard [facility], [facility] 6 15:12:08 Tendinitis of finger 228311720 Completed 05/03/2014 [facility] 6 15:12:08 Cellulitis of lower limb 449592504 Completed 05/03/2014 [facility] 6 15:12:08 Herpes zoster 9688104 Completed 05/03/2014 Melodie Carey montse, [facility], [facility] 6 15:12:08 Generalized arthritis 414955229 [facility] 15:12:08 Psoriasis with arthropathy Active Rupesh hunter, [facility] [address], [place], [address] [place] [address] 6 15:41:47 Dermatophyt osis 98532733 Completed 05/03/2014 [facility] 6 15:12:08 Depressive disorder 52779437 Active [facility] 6 15:12:08 Hyperlipide murphy 86624298 [facility] 6 15:12:08 Bursitis of shoulder 391986074 Completed 06/27/2016 Rakesh Clark Jr, MD [address], [place], [address] [place] [address] 7 18:11:38 Disorder of nervous system due to type 2 diabetes mellitus 560852788 [facility] 6 15:12:08 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 44663691 Active Melodie Carey montse, [facility], [facility] 6 15:12:08 Menopausal symptom 87502010 [facility] 6 15:12:08 Recurrent major depressive episodes 516901304 Active Melodie willard, [facility], [facility] 6 15:12:08 Manic bipolar I disorder 92391240 Active Melodie willard, [facility], [facility] 6 15:12:08 Anemia caused by medication 152267194 Active Melodie willard, [facility], [facility] 6 15:12:08 Anemia 510965549 Active Melodie willard, [facility], [facility] 6 15:12:08 Chronic pain 34660894 Active Melodie willard, [facility], [facility] 6 15:12:08 Herniation of rectum into vagina 294803263 Active Melodie willard, [facility], [facility] 6 15:12:08 Otalgia 31039098 [facility] 6 15:12:08 Bipolar disorder 72105386 [facility] 6 15:12:08 Sciatica 03315800 [facility] 6 15:12:08 Peripheral neuropathic pain 831847655 [facility] 6 15:12:08 Iron deficiency anemia 36629092 Active 2016 Rakesh Clark Jr, MD [address], [place], [address], [facility], [facility] 7 17:04:22 Urinary incontinenc e 174366391 Active 2016 Rakesh Clark Jr, MD [address], [place], [address], [facility], [facility] 7 17:04:24 Hypertensiv e disorder 81613270 Active 2016 Rakesh Clark Jr, MD [address], [place], [address], [facility], [facility] 7 01:33:49 Gastro-esop hageal reflux disease with esophagitis 265877185 Active 2016 Rakesh Clark Jr, MD [address] [facility] [address], [place], [address] [facility], [facility] 17:08:23 Problem Notes Documentation Provider Name and Address Organization Details Recorded Time 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 [id number] [facility] [address]HCANDICEVIKYEKLLY (id #[id number], : 1960) [facility] [address] [facility] [address] [place] [address] , Date: 04/02/2016RE: Kelly Drake, : 1960, PT ID #[id number] Islas MD, I would like to thank [...] and low back. 04/02/2016 - 03:40PM - [facility] History of Present IllnessRheumatology GeneralReported bypatient.Reason [...] syringe(s) ? Refills: 1 ? Pharmacy: [facility] ([facility]) CBC W/ AUTODIFF, COMPLETE BLOOD COUNT -?To [...] medications. Next labs with follow-up appointment.[id number]: Other half-way (current) drug therapy DiscussionPatient InstructionsPatient Instructions call us if condition worsens Discussion NotesPatient aware of issues with biologics such as stopping medication/calling us if any infections arise, also must stop biologic prior to surgery ( should call us if surgery planned), aware of cancers such as lymphoma, skin cancers, etc.. Return to Office to see Rakesh Clark Jr, MD for BLOCK at [address] on or around 05/26/2016 Rakesh Clark Jr, MD for WELCOME TO MEDICARE [address] on 05/30/2016 at 10:15 AM JOSETTE Lowe for ESTABLISHED OV 20 at [facility] on 07/10/2016 at 02:00 PM JOSETTE Lowe [address], [place], [address], [employer], [employer] 06/26/2016 14:00:07 Procedures Surgical History Date Name Laterality Status Provider Name and Address Organization Details Recorded Time 06/28/19 17 Quality Pain Screening No Pain completed Rakesh Clark Jr, MD [address], [place], [address], [employer] [place] [employer] [facility], [employer] 06/27/2016 14:51:17 06/28/19 17 Quality Functional Assessment completed Rakesh Clark Jr, MD [address], [place], [address], [employer] [place] [employer] [facility], [employer] 06/27/2016 14:51:17 06/28/19 17 Quality Medication Reviewed and Updated completed Rakesh Clark Jr, MD [address], [place], [address], [employer] [place] [facility] [employer] [facility], [employer] 06/27/2016 14:51:17 06/28/19 17 Quality (DM or HTN) BP Diastolic < 80 completed Rakesh Clark Jr, MD [address], [place], [address], [employer] [place] [employer] [facility], [facility] 06/27/2016 14:51:17 06/28/19 17 Medicare AWV Questionnaire completed Rakesh Clark Jr, MD [address], [place], [address], [facility], [facility] 06/27/2016 14:51:16 06/28/19 17 Quality Tobacco Non- User completed Rakesh Clark Jr, MD [address], [place], [address], [facility], [facility] 06/27/2016 14:51:17 06/28/19 17 Quality (DM or HTN ) BP Systolic < 130 completed MD Wale Cobb Jr[address], [place], [address], [facility], [facility] 06/27/2016 14:51:17 06/28/19 17 Quality Fall Risk Assessment Low Risk completed Rakesh Clark Jr, MD [address], [place], [address], [facility], [facility] 06/27/2016 14:51:17 06/28/19 17 Quality BMI with follow up completed Rakesh Clark Jr, MD [address], [place], [address], [facility], [facility] 06/27/2016 14:51:17 06/28/19 17 Quality Advanced Care Planning completed Rakesh Clark Jr, MD [address], [place], [address], [facility], [facility] 06/27/2016 14:51:17 06/28/19 17 Quality Incontinence Screening completed Rakesh Clark Jr, MD [address], [place], [address], [facility], [facility] 06/27/2016 14:51:17 06/28/19 17 Diabetic Foot Exam completed Rakesh Clark Jr, MD [address], [place], [address], [facility], [facility] 06/27/2016 18:35:46 06/27/19 17 Quality Pain Screening No Pain cancelled Jovaniprimo Santy [facility], [facility] 06/26/2016 12:03:03 06/27/19 17 Quality Functional Assessment cancelled Remediosnorberto Foxanayeli [facility], [facility] 06/26/2016 11:57:35 06/27/19 17 Quality Medication Reviewed and Updated cancelled Remediosnorberto Mendez [facility], [facility] 06/26/2016 11:57:34 06/27/19 17 Quality (DM or HTN) BP Diastolic < 80 cancelled Remedios Mendez [facility], [facility] 06/26/2016 11:57:35 06/27/19 17 Medicare AWV Questionnaire cancelled [facility], [facility] 06/26/2016 12:01:38 06/27/19 17 Quality Tobacco Non- User cancelled Remedioseber Mendez [facility], [facility] 06/26/2016 11:57:34 06/27/19 17 Quality (DM or HTN ) BP Systolic < 130 cancelled Remedios Mendez [facility], [facility] 06/26/2016 11:57:35 06/27/19 17 Quality Fall Risk Assessment Low Risk cancelled Remediosnorberto Mendez [facility], [facility] 06/26/2016 11:57:35 06/27/19 17 Quality BMI with follow up cancelled Remediosnorberto Mendez [facility], [facility] 06/26/2016 11:57:35 06/27/19 17 Quality Advanced Care Planning cancelled Remediosnorberto Mendez [facility], [facility] 06/26/2016 11:57:35 06/27/19 17 Quality Incontinence Screening cancelled Remediosnorberto Mendez [facility], [facility] 06/26/2016 11:57:35 05/13/19 17 Vrt fracture assmt via dxa completed Lucretia Madera [facility], [facility] 06/26/2016 12:02:16 05/13/19 17 Bone mineral single photon completed Remedios Mendez [facility], [facility] 06/27/2016 16:04:30 05/13/19 17 Mammogram Screening completed Remedios Mendez [facility], [facility] [facility] 06/27/2016 16:04:51 05/13/19 17 Other completed Remedios Mendez [facility], [facility] 06/27/2016 16:05:33 12/03/19 15 Diabetic Foot Exam completed Rakesh Clark Jr, MD [address], [place], [address], [facility] 12/05/2014 20:40:00 05/07/19 14 TCM Initial completed Lorena Bazzi [facility] 05/06/2013 10:27:34 04/02/19 14 Aspiration Major Joint/Bursa completed Rakesh Clark Jr, MD [address], [place], [address], [facility], [facility] 04/05/2013 16:22:28 03/10/19 14 Aspiration Major Joint/Bursa completed Rakesh Clark Jr, MD [address], [place], [address], [facility], [facility] 03/10/2013 17:45:44 03/03/19 14 Aspiration Major Joint/Bursa completed Rakesh Clark Jr, MD [address], [place], [address], [facility], [facility] 03/03/2013 17:51:17 02/16/19 14 Aspiration Major Joint/Bursa completed Rakesh Clark Jr, MD [address], [place], [address], [facility], [facility] 02/16/2013 17:36:32 02/11/19 11 Colonoscopy completed Lucretia Madera [facility], [facility] 06/26/2016 12:02:02 02/11/19 07 Colonoscopy completed Gill Marie [facility], [facility] 02/16/2013 14:55:02 02/11/19 03 Hernia repair completed Gill Marie [facility], [facility] 02/16/2013 15:22:58 02/11/18 89 Cholecystectomy completed Gill Marie [facility], [facility] 02/16/2013 15:22:58 02/11/18 89 [facility], [facility] 02/16/2013 15:22:58 [facility]onsillectomy [facility], [facility] 02/16/2013 15:23:18 COLONOSCOPY (SURG) completed Faraz Overton [facility], [facility] 07/23/2013 19:11:11 Imaging Results Imaging Date Name Status LastModified by Organization Details LastModified Time 04/10/2016 MAMMO, screening, digital, bilateral completed [address] [facility] [address] [facility] [address], [place], [address], 06/26/2016 14:00:06 04/10/2016 bone density study completed [address] [facility] ([facility]) [address] [facility] [address], [place], [address], 06/26/2016 14:00:06 04/10/2016 bone density study [place] [address] [address], [place], [address], 06/26/2016 14:00:06 04/10/2016 dual energy x-ray absorptiometry completed [address] [facility] [address] [facility] [address], [place], [address], 06/26/2016 14:00:06 06/27/2016 electrocardiogram completed Informa tion not available 06/27/2016 18:03:08 Procedure Notes None recorded. Medical Equipment None Reported. Allergies Allergen ID Allergen Name Allergen Category Reaction Reaction Severity Criticality Documentation Date Start Date Code Code System Note Provider Name and Address Organization Details Recorded Time 245206 Lorabid medicatio n anaphylax is severe Not available 02/16/2013 27206 4 RxNorm aller gy previ ously marke d as life -thre ateni ng Not Available [facility] 4 05:46:19 026754 chlorthal idone medicatio n anaphylax is severe Not available 02/16/2013 2409 RxNorm aller gy previ ously marke d as life -thre ateni ng Not Available [facility] 4 05:46:19 774180 Bactrim medicatio n anaphylax is severe Not available 02/16/2013 76171 9 RxNorm Gill Marie [facility], [facility], [facility] 4 15:02:18 686698 doxycycli ne Not available anaphylax is moderate Not available 02/16/2013 3640 RxNorm Gill Marie [facility], [facility] 4 15:02:18 074852 Norvasc medicatio n anaphylax is moderate Not available 02/16/2013 30593 RxNorm Gill Marie [facility] 4 15:02:18 523497 erythromy sai medicatio n anaphylax is moderate Not available 02/16/2013 4053 RxNorm Gill Marie [facility] 4 15:02:18 874128 prednison e medicatio n other Not available Not available 12/02/2014 8640 RxNorm Monica Cheatham [facility] 5 17:57:49 Medications Name Sig Start [...] Available Not Available Not Available Fluarix Quad 8219-7817 (PF) 60 mcg (15 mcg x 4)/0.5 mL IM syringe inject 0.5 millilit er intramus cularly active Not Available Not Available No t Available Vitals Date Recorded Body height Body weight Body mass index (BMI) Heart rate Systolic blood pressure Diastolic blood pressure Provider Name and Address Organization Details Last Updated DateTime 6 162.56 cm 519632. 67652 g 39.8 kg/m2 84 /min 122 mm[Hg] 78 mm[Hg] Melodie Carey [facility] 15:15:04 Date Recorded Body height Body weight Body mass index (BMI) Body temperature Heart rate Oxygen saturation Oxygen saturation in Arterial blood by Pulse oximetry Systolic blood pressure Diastolic blood pressure Provider Name and Address Organization Details Last Updated DateTime 7 162.56 cm 074828. 06 g 39.1 kg/m2 98.6 [degF] 112 /min 96 % 96 % 108 mm[Hg] 78 mm[Hg] Lucretia Madera [facility], [facility] 7 17:25:04 Date Recorded Body height Body weight Body mass index (BMI) Heart rate Oxygen saturation Oxygen saturation in Arterial blood by Pulse oximetry Systolic blood pressure Diastolic blood pressure Provider Name and Address Organization Details Last Updated DateTime 7 162.56 cm 927109. 06 g 39.1 kg/m2 88 /min 98 % 98 % 144 mm[Hg] 96 mm[Hg] Melodie Carey [facility], [facility] 7 15:57:00 Date Recorded Body height Provider Name an d Address Organization Details Last Updated DateTime 06/26/2016 162.56 cm Elis Marcello [facility], [facility] 06/26/2016 11:51:02 Date Recorded Respiratory rate Provider Name a nd Address Organization Details Last Updated DateTime 06/26/2016 18 /min Remedios Mendez [facility], [facility] 06/26/2016 11:52:36 Date Recorded Body height Body weight Body mass index (BMI) Oxygen saturation Oxygen saturation in Arterial blood by Pulse oximetry Heart rate Systolic blood pressure Diastolic blood pressure Provider Name and Address Organization Details Last Updated DateTime 7 162.56 cm 980187. 13 g 42.1 kg/m2 100 % 100 % 91 /min 156 mm[Hg] 98 mm[Hg] Melodie Carey [facility], [facility] 7 13:46:40 Date Recorded Body height Respiratory rate Body weight Body mass index (BMI) Body temperature Heart rate Oxygen saturation Oxygen saturation in Arterial blood by Pulse oximetry Systolic blood pressure Diastolic blood pressure Provider Name and Address Organization Details Last Updated DateTime 7 162.56 cm 18 /min 380921. 73 g 41.1 kg/m2 99.2 [degF] 100 /min 98 % 98 % 148 mm[Hg] 99 mm[Hg] Remedios Mendez [facility], [facility] 7 16:15:42 Social History Question Answer Notes LastModified by Organizat ion Details LastModified Time Tobacco Smoking Status Former Smoker Gill willard [facility], [facility] 02/16/2013 15:16:13 Do You Have An Advance Directive? No PT WISHES TO BE RESUSCITATED BUT DOESN'T WANT HER LIFE PROLONGED IF THERE IS NO REASONABLE CHANCE OF FUNCTIONAL RECOVERY Information not available 07/15/2013 How Much Tobacco Do You Chew? None [email or web address] Information not available 04/02/2016 Which Illicit Or [...] Jr, MD [address], [place], [address], [facility] [employer] [facility], [facility] 05/18/2014 19:11:52 influenza, unspecified formulation 02/12/2012 completed Rakesh Clark Jr, MD [address], [place], [address], [facility], [facility] 05/18/2014 19:11:52 tetanus toxoid, unspecified formulation 02/11/2010 completed Rakesh Clark Jr, MD [address], [place], [address], [facility] [employer] [facility], [facility] 05/18/2014 19:11:52 influenza, unspecified formulation 02/12/2012 completed Rakesh Clark Jr, MD [address], [place], [address], [facility] [employer] [facility], [facility] 12/16/2013 09:20:00 pneumococcal, unspecified formulation 02/11/2009 completed Rakesh Clark Jr, MD [address], [place], [address], [facility] [employer] [facility], [facility] 12/16/2013 09:20:00 tetanus toxoid, unspecified formulation 02/11/2010 completed Rakesh Clark Jr, MD [address], [place], [address], [facility] [employer] [facility], [facility] 12/16/2013 09:20:00 Past Encounters Encounter ID Performer Location Encounter Start Date Encounter Closed Date Diagnosis/Indication Diagnosis SNOMED-CT Code Diagnosis ICD10 Code Diagnosis Note [id number] Rakesh Clark Jr, MD [address] [address] 02/16/2013 15:09:24 02/16/2013 17:41:02 Knee pain 13481386 Tenosynovi tis of the knee. Kenalog injection tolerated well. 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 Check A1c. She is unwilling to check sugars so will have to go by A1C and modify treatment accordingl y. Anticipate will have to add something such as a GLP1 or DPP4 inhibitor. GLP1 would probably be most beneficial because of her obesity Sciatica 65676858 Exacer jennifer d by knee pain. Treat knee and see how her back improves. Weight loss would also help Essential hypertension 94031475 Stable. Continue meds. 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 Discussed [...] concerning medical plan of care. Essential hypertension 44796777 Blood pressure under good control. Continue medication s. Encourage patient to continue to monitor blood pressure regularly. Knee pain 87410967 Stabl e. Controlled . Continue current therapy/me dical plan of care. Sciatica 76081392 Stable . Controlled . Continue current therapy/me dical plan of care. Obesity 940827151 Discus sed the diagnosis as well as the risks and benefits of therapy/ev aluation. Patient understand s the risks and benefits of declining or accepting treatment. Please see patient discharge instructio ns for any additional informatio n concerning medical plan of care. Make it some benefit from the Bydureon with her weight loss. [id number] Rakesh Clark Jr, MD [address] [place] [id number] 03/03/2013 16:38:47 03/03/2013 17:48:26 Knee pain 86042011 Tolerated injection well. Improvemen t with initial Cortisone injection continue with Hyalgan. Discussed the diagnosis as well as the risks and benefits of therapy/ev aluation. Patient understand s the risks and benefits of declining or accepting treatment. Please see patient discharge instructio ns for any additional informatio n concerning medical plan of care. [id number] Rakesh Clark Jr, MD [address] [place] [id number] 03/10/2013 16:58:01 03/11/2013 11:56:47 Knee pain 38533731 Stable. Controlled . Continue current therapy/me dical plan of care.Discu ssed the diagnosis as well as the risks and benefits of therapy/ev aluation. Patient understand s the risks and benefits of declining or accepting treatment. Please see patient discharge instructio ns for any additional informatio n concerning medical plan of care. Essential hypertension 78773222 Blood pressure under good control. Continue medication s. Encourage patient to continue to monitor blood pressure regularly. Sinusitis 30379327 [facility] ed. Discussed the diagnosis as well as different treatment option, and the risks and benefits of therapy/ev aluation. Reviewed goals of treatment with patient. Patient understand s the risks and benefits of declining or accepting treatment. Please see patient discharge instructio ns for any additional informatio n concerning medical plan of care. Sinus headache 9268287 D iscussed the diagnosis as well as the risks and benefits of therapy/ev aluation. Patient understand s the risks and benefits of declining or accepting treatment. Please see patient discharge instructio ns for any additional informatio n concerning medical plan of care. [id number] Rakesh Clark Jr, MD [address] [place] [id number] 03/17/2013 17:00:19 03/17/2013 18:36:28 Knee pain 70051869 Swelling appears to be from precius Hyalgan injection. Postpone 1 week. No evidence of infection. Feel if I gave her this last dose today it would result in significan t joint infusion [id number] Rakesh Clark Jr, MD [address] [place] [id number] 04/02/2013 17:30:36 04/02/2013 19:11:46 Knee pain 10660747 Doing well tolerating injections . Improved Tendinitis of finger 106408144 Medrol dose pack. Rec she use a wrist brace bilaterall y. 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 Leg wrapped with pressure bandage. capillary refill good. tolerated. Continue antibiotic s. 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 Instructed her that she has to wear diabetic shoes. Herpes zoster 5547695 St able. [id number] Rakesh Clark Jr, MD [place] [address] 05/08/2013 08:28:37 05/08/2013 10:09:56 Cellulitis of lower limb 474949994 Improved continue antibiotic s andkeep leg elevated [id number] Daquan Doss MD [facility] [place] [address] 05/14/2013 15:11:57 05/14/2013 16:17:29 Pain of hip region 57781918 [id number] Rakesh Clark Jr, MD [place] [address] 06/10/2013 11:48:39 06/10/2013 14:43:56 Psoriasis 2813619 Discussed the diagnosis as well as the risks and benefits of therapy/ev aluation. Patient understand s the risks and benefits of declining or accepting treatment. Please see patient discharge instructio ns for any additional informatio n concerning medical plan of care. Generalized arthritis 750957498 Discussed the diagnosis as well as the risks and benefits of therapy/ev aluation. Patient understand s the risks and benefits of declining or accepting treatment. Please see patient discharge instructio ns for any additional informatio n concerning medical plan of care. Psoriasis with arthropathy 45881162 Current medical problem uncontroll ed. Discussed the [...] give some Clonazepam to help with this. [id number] Ezra Hernandez DO [place] [id number] [facility] N,[facility] [address] [place] [address] 06/11/2013 13:30:44 06/11/2013 15:34:44 Screening for malignant neoplasm of colon 199239781 has h/o polyps. Doing well. No severe heart nor lung disease. Not on blood thinners. Will proceed with colonoscop y. [id number] Rakesh Clark Jr, MD [place] [address] 07/15/2013 14:12:02 07/15/2013 16:45:49 Adult health examination 404822734 Psoriasis with arthropathy 47748389 Will start her on steroids. Will also go ahead and give her a Kenalog shot at this time. Will add Toradol for her joint discomfort . 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 She has needs to [facility] has the anxiety with taking the steroids will add Clonazepam . 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 Encourage the patient to check her blood sugars Essential hypertension 58173496 We will change her from Diovan to Losartan for insurance coverage. 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 Discussed [...] medical plan of care. Psoriasis with arthropathy 19224538 Discussed the diagnosis as well as the risks and benefits of therapy/ev aluation. Patient understand s the risks and benefits of declining or accepting treatment. Please see patient discharge instructio ns for any additional informatio n concerning medical plan of care. Essential hypertension 14755954 Blood pressure under good control. Continue medication s. Encourage patient to continue to monitor blood pressure regularly. Dermatophytosis 07164798 Stable. Controlled . Continue current therapy/me dical plan of care. Depressive disorder 55379386 Stable. Controlled . Continue current therapy/me dical plan of care. Sciatica 12833393 Stable . Controlled . Continue current therapy/me dical plan of care. Hyperlipidemia 29529297 Discussed lipid profile. Discussed risks and benefits of therapy. Lipid not at goal based on current overall risk factors. Discussed risks and benefits of therapy. See patient instructio ns for medical plan of care. 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 Discussed [...] medical plan of care. Psoriasis with arthropathy 08108267 Stable. Controlled . Continue current therapy/me dical plan of care. Essential hypertension 32307657 Blood pressure under good control. Continue medication s. Encourage patient to continue to monitor blood pressure regularly. Depressive disorder 10667752 Discussed the diagnosis as well as the risks and benefits of therapy/ev aluation. Patient understand s the risks and benefits of declining or accepting treatment. Please see patient discharge instructio ns for any additional informatio n concerning medical plan of care. Sciatica 59580631 Stable . Controlled . Continue current therapy/me dical plan of care. Hyperlipidemia 42740253 Stable. Controlled . Continue current therapy/me dical plan of care. [id number] Thierry Poole MD [place] [address] 10/06/2013 13:44:53 10/07/2013 16:41:23 Muscle pain 42111871 [id number] Thierry Poole MD [place] [address] 10/08/2013 09:20:46 10/08/2013 10:37:32 Hematoma 873952490 [id number] Rakesh Clark Jr, MD [place] [address] 12/15/2013 17:18:09 12/15/2013 18:13:37 Sciatica 84780199 Stable. Controlled . Continue current therapy/me dical plan of care. 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 Hemoglobin A1c stable. Reviewed current glycemic goals. Continue current treatment. Psoriasis with arthropathy 21404110 improving. Stable. Controlled . Continue current therapy/me dical plan of care. Essential hypertension 10079697 Blood pressure under good control. Continue medication s. Encourage patient to continue to monitor blood pressure regularly. Depressive disorder 41818451 Stable. Controlled . Continue current therapy/me dical plan of care. Hyperlipidemia 75173530 Discussed lipid profile. Discussed risks and benefits of therapy. Lipid at goal based on current overall risk factors. Continue current therapy. Screening mammography 08234022 [id number] Rakesh Clark Jr, MD [place] [address] 01/19/2014 17:30:38 01/19/2014 19:11:48 Bursitis of shoulder 703955249 Discussed the diagnosis as well as the risks and benefits of therapy/ev aluation. Patient understand s the risks and benefits of declining or accepting treatment. Please see patient discharge instructio ns for any additional informatio n concerning medical plan of care. Acute sinusitis 20609936 Discussed the diagnosis as well as the risks and benefits of therapy/ev aluation. Patient understand s the risks and benefits of declining or accepting treatment. Please see patient discharge instructio ns for any additional informatio n concerning medical plan of care. 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 Hemoglobin A1c stable. Reviewed current glycemic goals. Continue current treatment. Essential hypertension 87051991 Blood pressure not controlled . Low Salt diet encouraged consider adjustment in medical therapy. Encourage patient to monitor blood pressure regularly. Discussed risks and benefits of therapy. See patient instructio ns for medical plan of care. Depressive disorder 59726016 Stable. Controlled . Continue current therapy/me dical plan of care. Hyperlipidemia 78738919 Discussed lipid profile. Discussed risks and benefits of therapy. Lipid at goal based on current overall risk factors. Continue current therapy. Obesity 172408547 Discus sed the diagnosis as well as the risks and benefits of therapy/ev aluation. Patient understand s the risks and benefits of declining or accepting treatment. Please see patient discharge instructio ns for any additional informatio n concerning medical plan of care. Psoriasis with arthropathy 84645368 Stable. Controlled . Continue current therapy/me dical plan of care. Screening for malignant neoplasm of colon 670610141 Screening mammography 40167986 Disorder o f nervous system due to type 2 diabetes mellitus 388012413 chronic, controlled . Continue same, recheck labs as per schedule. Polyneurop athy due to diabetes mellitus 19247725 chronic, controlled . Continue same regimen. Recheck as scheduled Menopausal symptom 06963311 Recurrent major depressive episodes 411458952 chronic, improving. Continue medication regimen as noted and follow up as scheduled. 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 Controlled . Continue current therapy/me dical plan of care. Psoriasis with arthropathy 29066785 Stable. Controlled . Continue current therapy/me dical plan of care. Manic bipo lar I disorder 51696556 Current medical problem uncontroll ed. Discussed the diagnosis as well as different treatment option, and the risks and benefits of therapy/ev aluation. Reviewed goals of treatment with patient. Patient understand s the risks and benefits of declining or accepting treatment. Please see patient discharge instructio ns for any additional informatio n concerning medical plan of care. [id number] Rakesh Clark Jr, MD [address] [address] 12/02/2014 16:48:52 12/07/2014 12:32:24 Adult health examination [id number] Z00.00 Discussed preventive medicine and screening strategies with patient and family. Continue Yearly evaluation and monitoring . See Out Patient Guide/[facility] [facility] for plan of care and to see what needed to be ordered to keep patient up to Date. Polyneurop athy due to diabetes mellitus 59113796 E11.42 Patient's sugars are not at goal. [...] of care. Increase her Metformin. Essential hypertension 55278435 I10 Blood pressure not controlled . Low Salt diet encouraged consider adjustment in medical therapy. Encourage patient to monitor blood pressure regularly. Discussed risks and benefits of therapy. See patient instructio ns for medical plan of care. Hyperlipidemia 19929191 E78.5 Discussed lipid profile. Discussed risks and benefits of therapy. Lipid at goal based on current overall risk factors. Continue current therapy. Menopausal symptom 76337 002 N95.1 Current medical problem uncontroll ed. [...] follow up and review this with her [employer] as well her poor sleep secondary to her menopausal symptoms are probably having some affect on her anxiety and depression as well. She is also going to follow up with her counselor. She is to continue with her antidepres kelvin medication s. Psoriasis with arthropathy 02298262 L40.50 Stable. Improving flare. Continue current therapy/ar dical plan of care. Recurrent major depressive episodes 418820678 F33.1 Discussed the diagnosis as well as [...] current issues. Anemia cau sed by medication 757815898 T50.905A follow up with rheumatolo gist. Will also check for iron deficiency and B12 deficiency .Discussed the diagnosis as well as the risks and benefits of therapy/ev aluation. Patient understand s the risks and benefits of declining or accepting treatment. Please see patient discharge instructio ns for any additional informatio n concerning medical plan of care. [id number] Stuart Morrison MD [facility] [address] [place] [address] 12/09/2014 08:28:06 12/09/2014 09:17:06 Psoriasis with arthropathy 20428645 L40.50 Patient experienci ng on going arthralgia [...] sq q 14 days. Long-term drug therapy 978466722 Z79.899 Stop OTC NSAIDs, MTX. Next labs on follow up. Anemia 235910632 D64.9 microcytic , check iron studies, will call with results. [id number] MD EBER Nunez [address] [place] [address] 03/10/2015 13:50:15 03/10/2015 14:12:34 Psoriasis with arthropathy 69882312 L40.50 No active psoriasis, no joint swelling or pain, patient able to function. Her labs are improved, anemia now better, she is off the MTX. Continue Humira sq every 14 days. Return 4 months. Long-term drug therapy 497147178 Z79.899 Tolerating medication s well, no adverse issues. Labs reviewed today. [id number] Kalpesh Kauffman MD [facility] [address] [place] [address] 05/26/2015 12:14:11 05/26/2015 15:34:46 Cough 23557967 R05 Present persistent productive coughing causing Lt TM trauma. Refers not allergic to prednisone but could cause her a manic episode of her Bipolar disorder, but she needs steroid now and refers she can control it with clonazepam . Currently no respirator y distress. Refers good tolerance to zithromax. Counseled about treatment and Breo sample given. Refer for ENT evaluation . [id number] Rakesh Clark Jr, MD [address] [place] [address] 06/28/2015 17:32:48 06/28/2015 18:49:57 Recurrent major depressive episodes 054026125 F33.1 Discussed the diagnosis as well as [...] ty of current issues. Psoriasis with arthropathy 76036740 L40.50 Current medical problem uncontroll ed. Discussed the diagnosis as well as different treatment option, and the risks and benefits of therapy/ev aluation. Reviewed goals of treatment with patient. Patient understand s the risks and benefits of declining or accepting treatment. Please see patient discharge instructio ns for any additional informatio n concerning medical plan of care. Herniation of rectum into vagina 631629971 N81.6 She reports that she saw the [...] n concerning medical plan of care. Otalgia 59711503 H92.02 She was seen in the emergency room/[facility] for left ear pain with bleeding. [...] care. Polyneurop athy due to diabetes mellitus 42711681 E11.42 Patient's sugars are not at goal. [...] is under. Manic bipo lar I disorder 16996694 F31.10 Discussed the diagnosis as well as the risks and benefits of therapy/ev aluation. Patient understand s the risks and benefits of declining or accepting treatment. Please see patient discharge instructio ns for any additional informatio n concerning medical plan of care. 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 Patient understand s the risks and benefits of declining or accepting treatment. Please see patient discharge instructio ns for any additional informatio n concerning medical plan of care. Hyperlipidemia 85765584 E78.5 Discussed lipid profile. Discussed risks and benefits of therapy. Lipid at goal based on current overall risk factors. Continue current therapy. Essential hypertension 10953233 I10 Blood pressure not controlled . Low Salt diet encouraged consider adjustment in medical therapy. Encourage patient to monitor blood pressure regularly. Discussed risks and benefits of therapy. See patient instructio ns for medical plan of care. [id number] Stuart Morrison MD [facility] [address] [place] [address] 07/08/2015 14:06:44 07/08/2015 14:43:00 Psoriasis with arthropathy 60113829 L40.50 Since last visit she has some [...] weeks for reevaluati on. Long-term drug therapy 309448367 Z79.899 Patient is tolerating current medication s well, not reporting any adverse effects from medication s. Lab results reviewed today with patient, no issues in regards to current medication s. Next labs with follow-up irving Armando is screening 886986692 Z11.1 [id number] Rakesh Clark Jr, MD [address] [place] [address] 08/01/2015 15:13:19 08/01/2015 17:12:48 Psoriasis with arthropathy 35262219 L40.50 Current medical problem uncontrol ed. Discussed the diagnosis as well as different treatment option, and the risks and benefits of therapy/ev aluation. Reviewed goals of treatment with patient. Patient understand s the risks and benefits of declining or accepting treatment. Please see patient discharge instructio ns for any additional informatio n concerning medical plan of care. Recurrent major depressive episodes 083726674 F33.1 Discussed the diagnosis as well as [...] issues. Polyneurop athy due to diabetes mellitus 51917319 E11.42 Patient's sugars are not at goal. [...] the Metformin. Manic bipo lar I disorder 60832314 F31.10 Discussed the diagnosis as well as the risks and benefits of therapy/ev aluation. Patient understand s the risks and benefits of declining or accepting treatment. Please see patient discharge instructio ns for any additional informatio n concerning medical plan of care. Hyperlipidemia 62956472 E78.5 Discussed lipid profile. Discussed risks and benefits of therapy. Lipid at goal based on current overall risk factors. Continue current therapy. Essential hypertension 30167581 I10 Blood pressure under good control. Continue medication s. Encourage patient to continue to monitor blood pressure regularly. [id number] JOSETTE Lowe [facility] [address] [place] [address] 08/26/2015 14:50:01 08/26/2015 15:25:29 Psoriasis with arthropathy 83452796 L40.50 Continue with Enbrel 50 mg subcutaneo us weekly, Sed Rate is 2 . Discussed with the patient to call the office with any further questions or concerns. -Return in 8 weeks for reevaluati on. Long-term drug therapy 472931972 Z79.899 Patient is tolerating current medication s well, not reporting any adverse effects from medication s. Next labs with follow-up appointmen t. [id number] Rakesh Clark Jr, MD [address] [place] [address] 08/29/2015 14:43:51 08/29/2015 16:05:05 Polyneuropathy due to diabetes mellitus 85050907 E11.42 Patient's sugars are not at goal. [...] of Onglyza and Metformin. Psoriasis with arthropathy 45608137 L40.50 Discussed diagnosis as well as risks and benefits of therapy. Continue current therapy/me dical plan of care. Continue to follow at this time. Will check labs as appropriat e. Hyperlipidemia 08823304 E78.5 Discussed lipid profile. Lipid not at [...] therapy/me dical plan of care. Essential hypertension 14335335 I10 Stable. Controlled . Continue current therapy/me dical plan of care. Bipolar disorder 6741512 4 F31.74 Discussed diagnosis as well as risks and benefits of therapy. Continue current therapy/me dical plan of care. Continue to follow at this time. Will check labs as appropriat e. Sciatica 95105057 M54.30 Stable. Controlled . Continue current therapy/me dical plan of care. [id number] Kalpesh Kauffman MD [facility] [address] [place] [address] 10/19/2015 11:41:06 10/19/2015 13:20:33 Acute sinusitis 95858872 J01.90 Refers previous similar episodes. Already started [...] at this time. F/U Dr Clark. Cough 68006945 R05 X Rays done today present no acute findings. Cough associated to URT infection. Currently on treatment with Enbrel. [id number] Kalpesh Kauffman MD [facility] [address] [place] [address] 10/27/2015 15:43:16 10/31/2015 08:42:48 Cough 80427700 R05 Manic bipo lar I disorder 04283798 F31.10 Refer steroid treatment could trigger lexi but well control with short term treatment with Klonopin. Bronchitis 97943117 J40 Denies prednisone allergy but possibilit y that could trigger lexi. Patient with no improvemen t and signs of acute bronchitis . Labs done today WNL. Counseled about treatment and the need for short term low dose steroid treatment. Visit ER if symptoms worsen. F/U Dr Clark. [id number] Rakesh Clark Jr, MD [address] [place] [address] 11/07/2015 15:04:46 11/07/2015 16:37:33 Polyneuropathy due to diabetes mellitus 63067183 E11.42 She states that prior to moving to [place] she had been on 2400 mg of Gabapentin day for her neuropathy . She has tried the lower dose but her neuropathy continues to be extremely uncomforta ble. Will go ahead at this time and increase her to 600 mg 3 times a day and reviewed the workup that has been done on her in the past. Psoriasis with arthropathy 61418695 L40.50 Discussed diagnosis as well as risks and benefits of therapy. Continue current therapy/me dical plan of care. Continue to follow at this time. Will check labs as appropriat e. Hyperlipidemia 58827112 E78.5 Discussed lipid profile. Discussed risks and benefits of therapy. Lipid at goal based on current overall risk factors. Continue current therapy. Depressive disorder 6230 9199 F32.2 Part of the manifestat ion of [...] concerning medical plan of care. Essential hypertension 13075761 I10 Stable. Controlled . Continue current therapy/me dical plan of care. Bipolar disorder 1364412 4 F31.11 I feel that her bipolar [...] ly will start her on Cymbalta. Sciatica 81739877 M54.30 Stable. Controlled . Continue current therapy/me dical plan of care. Peripheral neuropathic pain 525784838 M79.2 In reviewing her chart there does [...] combinatio n of all of the above. [id number] Rakesh Clark Jr, MD [address] [address] 11/21/2015 17:48:37 11/22/2015 10:54:22 Polyneuropathy due to diabetes mellitus 46452455 E11.42 Will give her a prescripti on and trial of topical cream to see if this helps with her neuropathy .Discussed the diagnosis as well as the risks and benefits of therapy/ev aluation. Patient understand s the risks and benefits of declining or accepting treatment. Please see patient discharge instructio ns for any additional informatio n concerning medical plan of care. Bipolar disorder 2474292 4 F31.11 Stable. Controlled . Continue current therapy/me dical plan of care. Peripheral neuropathic pain 756422140 M79.2 Discussed the diagnosis as well as the risks and benefits of therapy/ev aluation. Patient understand s the risks and benefits of declining or accepting treatment. Please see patient discharge instructio ns for any additional informatio n concerning medical plan of care. Depressive disorder 6302 9007 F32.2 Discussed diagnosis as well as risks and benefits of therapy. Continue current therapy/me dical plan of care. Continue to follow at this time. Will check labs as appropriat e. Psoriasis with arthropathy 90959411 L40.50 Discussed diagnosis as well as risks and benefits of therapy. Continue current therapy/me dical plan of care. Continue to follow at this time. Will check labs as appropriat e. Hyperlipidemia 36020814 E78.5 Discussed lipid profile. Discussed risks and benefits of therapy. Lipid at goal based on current overall risk factors. Continue current therapy. Essential hypertension 24004373 I10 Stable. Controlled . Continue current therapy/me dical plan of care. Sciatica 00626731 M54.30 Stable. Controlled . Continue current therapy/me dical plan of care. Urinary incontinence 165 584935 R32 Continues to be uncontroll ed. Will send the patient to see a neurologis t for further treatment. Iron defic iency anemia 52224764 D50.9 Current medical problem uncontroll ed. Discussed the diagnosis as well as different treatment option, and the risks and benefits of therapy/ev aluation. Reviewed goals of treatment with patient. Patient understand s the risks and benefits of declining or accepting treatment. Please see patient discharge instructio ns for any additional informatio n concerning medical plan of care. [id number] JOSETTE Lowe [address] [place] [address] 11/28/2015 15:04:01 11/28/2015 15:59:32 Psoriasis with arthropathy 18550485 L40.50 Continue with Enbrel 50 mg subcutaneo us weekly, Sed Rate is 7 . Discussed with the patient to call the office with any further questions or concerns. Call the office if you have any further questions or concerns. -Return in 4 months with labs Long-term drug therapy 511919057 Z79.899 Patient is tolerating current medication s well, not reporting any adverse effects from medication s. [id number] MD EBER Cobb Jr [address] [place] [address] 02/27/2016 10:00:53 02/27/2016 18:46:56 Bipolar disorder 85297091 F31.11 Stable. Controlled . Continue current therapy/me dical plan of care. Menopausal symptom 09659 002 N95.1 Current medical problem uncontroll ed. [...] follow up and review this with her [employer] as well her poor sleep secondary to her menopausal symptoms are probably having some affect on her anxiety and depression as well. She is also going to follow up with her counselor. She is to continue with her antidepres kelvin medication s. Anemia 374748288 D64.9 Discussed the diagnosis as well as the risks and benefits of therapy/ev aluation. Patient understand s the risks and benefits of declining or accepting treatment. Please see patient discharge instructio ns for any additional informatio n concerning medical plan of care. Hyperlipidemia 34639420 E78.5 Discussed lipid profile. Discussed risks and benefits of therapy. Lipid at goal based on current overall risk factors. Continue current therapy. Polyneurop athy due to diabetes mellitus 29723531 E11.42 Will change the Onglyza to a different drug because of not being covered by the insurance. Discussed the diagnosis as well as the risks and benefits of therapy/ev aluation. Patient understand s the risks and benefits of declining or accepting treatment. Please see patient discharge instructio ns for any additional informatio n concerning medical plan of care. Peripheral neuropathic pain 831069645 M79.2 Discussed the diagnosis as well as the risks and benefits of therapy/ev aluation. Patient understand s the risks and benefits of declining or accepting treatment. Please see patient discharge instructio ns for any additional informatio n concerning medical plan of care. Urinary incontinence 165 906392 R32 Discussed diagnosis as well as risks and benefits of therapy. Continue current therapy/me dical plan of care. Continue to follow at this time. Will check labs as appropriat e. Iron defic iency anemia 51935314 D50.9 Current medical problem uncontroll ed. Discussed the diagnosis as well as different treatment option, and the risks and benefits of therapy/ev aluation. Reviewed goals of treatment with patient. Patient understand s the risks and benefits of declining or accepting treatment. Please see patient discharge instructio ns for any additional informatio n concerning medical plan of care. Depressive disorder 3531 9000 F32.2 Discussed diagnosis as well as risks and benefits of therapy. Continue current therapy/me dical plan of care. Continue to follow at this time. Will check labs as appropriat e. Psoriasis with arthropathy 94931204 L40.50 Discussed diagnosis as well as risks and benefits of therapy. Continue current therapy/me dical plan of care. Continue to follow at this time. Will check labs as appropriat e. Sciatica 77693787 M54.30 Stable. Controlled . Continue current therapy/me dical plan of care. Hypertensive disorder 38 964504 I10 Blood pressure under good control. Continue medication s. Encourage patient to continue to monitor blood pressure regularly. Complicati on due to diabetes mellitus 99846208 E11.8 [id number] JOSETTE Lowe [address] [place] [address] 04/02/2016 15:34:49 04/02/2016 16:24:06 Psoriasis with arthropathy 34613402 L40.50 controlled : no active psoriasis, joint tenderness or synovitis on exam today; Morning stiffness less than 1 hour with mild fatigue and no sleeping difficulti es. Patient is active and able to do her daily activities Continue with Enbrel 50 mg subcutaneo us weekly, Sed Rate is 11 and CRP was 0.8 . Return in 3 months with labs Long-term drug therapy 562846971 Z79.899 Patient is tolerating current medication s well, not reporting any adverse effects from medication s. Next labs with follow-up appointadiel felder [id number] JOSETTE Lowe [address] [place] [address] 06/26/2016 13:12:08 06/26/2016 14:03:49 Psoriasis with arthropathy 38665165 L40.50 controlled : no active psoriasis, joint [...] with new Rheumatolo gist Long-term drug therapy 157811222 Z79.899 Patient is tolerating current medication s well, not reporting any adverse effects from medication s. Next labs with follow-up irving felder [id number] Rakesh Clark Jr, MD [address] [place] [address] 06/27/2016 08:49:08 07/04/2016 17:19:46 Bipolar disorder 42416734 F31.11 Stable. Controlled . Continue current therapy/me dical plan of care. Menopausal symptom 97786 002 N95.1 Discussed diagnosis as well as risks and benefits of therapy. Continue current therapy/me dical plan of care. Continue to follow at this time. Will check labs as appropriat e. Hyperlipidemia 21941890 E78.5 Discussed lipid profile. Discussed risks and benefits of therapy. Lipid at goal based on current overall risk factors. Continue current therapy. Polyneurop athy due to diabetes mellitus 55566892 E11.42 Doing well. Hemoglobin A1c stable. Reviewed current glycemic goals. Continue current treatment. Peripheral neuropathic pain 219606214 M79.2 Discussed diagnosis as well as risks and benefits of therapy. Continue current therapy/me dical plan of care. Continue to follow at this time. Will check labs as appropriat e. Urinary incontinence 165 770056 R32 Discussed diagnosis as well as risks and benefits of therapy. Continue current therapy/me dical plan of care. Continue to follow at this time. Will check labs as appropriat e. Iron defic iency anemia 65861935 D50.9 Current medical problem uncontroll ed. Discussed the diagnosis as well as different treatment option, and the risks and benefits of therapy/ev aluation. Reviewed goals of treatment with patient. Patient understand s the risks and benefits of declining or accepting treatment. Please see patient discharge instructio ns for any additional informatio n concerning medical plan of care. Depressive disorder 1756 1975 F32.2 Discussed diagnosis as well as risks and benefits of therapy. Continue current therapy/me dical plan of care. Continue to follow at this time. Will check labs as appropriat e. Psoriasis with arthropathy 07054578 L40.50 Discussed diagnosis as well as risks and benefits of therapy. Continue current therapy/me dical plan of care. Continue to follow at this time. Will check labs as appropriat e. Sciatica 84065382 M54.30 Stable. Controlled . Continue current therapy/me dical plan of care. Hypertensive disorder 38 250523 I10 Blood pressure under good control. Continue medication s. Encourage patient to continue to monitor blood pressure regularly. Adult heal th examination 653426379 Z00.01 Welcome to Medicare Visit done today. Recurrent major depressive episodes 093734217 F33.1 Discussed the diagnosis as well as [...] current issues. Anemia cau sed by medication 295957404 T50.905A Discussed diagnosis as well as risks and benefits of therapy. Continue current therapy/me dical plan of care. Continue to follow at this time. Will check labs as appropriat e. Obesity 705043239 E66.9 Discussed the diagnosis as well as the risks and benefits of therapy/ev aluation. Patient understand s the risks and benefits of declining or accepting treatment. Please see patient discharge instructio ns for any additional informatio n concerning medical plan of care. 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 Patient understand s the risks and benefits of declining or accepting treatment. Please see patient discharge instructio ns for any additional informatio n concerning medical plan of care. Morbid obesity 748976485 E66.01 weight issues discussed and informatio n on weight loss given. needs follow up on weight control as scheduled. Education handout on diets given. Exercise counseling done. Will arrange referral for dietitian, nutritioni st, Physical/o ccupationa l therapy as needed or desired. Also will consider pharmaceut ical and supplement al interventi ons Body mass index 40+ - severely obese 514644909 Z68.41 BMI 40.0-44.9. See Morbid Obesity above for details. Herniation of rectum into vagina 557541049 N81.6 She reports that she saw the [...] care. Gastro-eso phageal reflux disease with esophagitis 046553933 K21.0 Discussed diagnosis as well as risks and benefits of therapy. Continue current therapy/me dical plan of care. Continue to follow at this time. Will check labs as appropriat e. Fibromyalgia 688198188 M 79.7 Discussed diagnosis as well as [...] NO REASONABLE CHANCE OF FUNCTIONAL RECOVERY Payers Insurance Date Sequence Insurance Name Policy Number Policy Lim Covered Member ID Lim Member ID Guarantor Name 04/02/2016 1 [place] Kelly Peacock [id number] Kelly Juan 05/29/2017 1 [place]MED[place]ARE [place]AC[place] HMO) [id number] Kelly Peacock [id number] Kelly Juan 04/04/2016 2 [place] [employer] Kelly Juan [id number] Kelly Juan 12/13/2015 1 [place] [facility] [id number] Ezra Rodriguez [id number] Kelly Juan 02/17/2016 1 [facility] [facility] (HMO) [id number] Kelly Peacock [id number] Kellyann Juan 07/08/2015 [facility] sullivan Ann Juan 09/26/2013 [facility] Kelly Juarez Drake 12/13/2015 1 [facility]: [employer] (HMO) [id number] Ezra Drake [id number] Kelly Juan Notes Date Note Type Note [...] discussed during her visit today JOSETTE Lowe [address] [facility] [address], [place], [address], [facility] [facility], [facility] 11/28/2015 16:08:29 7 text/html ArthritisReported bypatient.Reason for [...] he coming unbearable. Rakesh Clark Jr, MD [address] [address], [place], [address], [facility] - [facility] 03/19/2016 01:38:55 7 text/html Rheumatology GeneralReported bypatient.Reason [...] well. Labs discussed during her visit today SheilaJOSETTE Meadows [address], [place], [address], [facility], [employer] 04/02/2016 16:29:19 7 text/html Rheumatology GeneralReported bypatient.Reason [...] her visit today, [place] JOSETTE Lowe [address], [place], [address], [employer], [employer] 06/26/2016 14:31:24 7 text/html ArthritisReported bypatient.Reason for [...] past the knee Rakesh Clark Jr, MD [address] [address], [place], [address], [facility] - [facility], [facility] 07/11/2016 17:09:31 OBGyn Episode No OBEpisode recorded.
== END 2024-06-25 13:10 | disposition home or self-care (01) ==
PROVIDERS: PCP Internal Medicine; Visit Provider Nurse Practitioner Family
DX: M54.2 Cervicalgia (principal)

== ENCOUNTER → 2024-06-25 12:04 | Outpatient (BNVA) | payer MEDICARE, MEDICAID, SELFPAY | PROVIDERS: PCP Internal Medicine; Visit Provider Nurse Practitioner Family | DX: M54.2 Cervicalgia (principal) | CPT/HCPCS: 99212 ==

== ENCOUNTER 2024-08-25 13:33 | Outpatient (REF) | payer MEDICARE, MEDICAID, SELFPAY | END 2024-08-25 13:34 | disposition home or self-care (01) | LOC: HO.LNP 13:33 | PROVIDERS: PCP Internal Medicine; Visit Provider Physician Assistant | DX: N30.01 Acute cystitis with hematuria (principal); R10.30 Lower abdominal pain, unspecified; K59.00 Constipation, unspecified | CPT/HCPCS: 81003; 87086; 87088; 87186; 99212 ==

== ENCOUNTER 2024-08-25 13:33 | Outpatient (AMB) | payer MEDICARE, MEDICAID, SELFPAY ==
[2024-08-25 13:43] VITALS: BP 142/90; PULSE 84; TEMP 36.8; O2SAT 95; BMI 29.6
--- NOTE | 2024-08-25 13:43 | AM.OFFWIN_ITS ---
Intake Vital Signs 08/25/24 13:43 08/25/24 13:52 Height 5 ft 3 in Weight 167 lb BMI 29.6 BP 142/90 H 136/84 Blood Pressure Location Rt brachial Lt brachial Position Sitting Sitting Pulse 84 Pulse Source Pulse Oximeter Temp 98.2 F Temp Source Oral Pulse Oximetry (%) 95 Oxygen Delivery Method Room Air Intake Visit Reasons: EP ? UTI Intake Note: presents with lower abdominal pain, pink spotting yesterday only, frequent urination, burning when peeing for 3 days Patient Tobacco Use Status: Former Tobacco user Allergies amlodipine (From Norvasc) Allergy (Unknown, Verified 08/25/24 13:47) Anaphylaxis chlorthalidone Allergy (Unknown, Verified 08/25/24 13:47) Anaphylaxis doxycycline Allergy (Unknown, Verified 08/25/24 13:47) Anaphylaxis erythromycin base Allergy (Unknown, Verified 08/25/24 13:47) Anaphylaxis loracarbef (From Lorabid) Allergy (Unknown, Verified 08/25/24 13:47) Anaphylaxis prednisone Allergy (Unknown, Verified 08/25/24 13:47) manic Sulfa (Sulfonamide Antibiotics) Allergy (Unknown, Verified 08/25/24 13:47) anaphylaxis sulfamethoxazole (From Bactrim) Allergy (Unknown, Verified 08/25/24 13:47) Anaphylaxis trimethoprim (From Bactrim) Allergy (Unknown, Verified 08/25/24 13:47) Anaphylaxis Lorabid Allergy (Unknown, Uncoded 06/25/24 12:43) anaphylaxis HPI HPI Comments History of Present Illness Details Patient is a 63yo F who presents to the office for UTI concern She has had in the past Dysuria, frequency, pelvic pressure, urgency Lower back ache but hx of arthritis as well She noticed pink on toilet paper yesterday; none noted today + diarrhea episode a few days ago but no t since States now slighrly constipated Nothing for symptoms No fever or chills PFSH Medical History (Updated 08/25/24 @ 14:27 by Myranda Simon PA-C) Cervicalgia Asthma Fall Annual physical exam IBS (irritable bowel syndrome) Mammogram normal Fatty liver Bipolar disorder Exercise-induced asthma Hyperlipemia HTN (hypertension) Neuropathy Obesity Diabetes Psoriatic arthritis Surgical History History of bladder surgery H/O colonoscopy History of esophagogastroduodenoscopy (EGD) Hx of cholecystectomy History of total abdominal hysterectomy Family History Father No problems noted. Mother No problems noted. Sister No problems noted. Sister No problems noted. Son Mental health disorder Substance use disorder Son No problems noted. Daughter No problems noted. Social History Housing: House Alcohol intake: current Alcohol intake frequency: holidays/special occasions only Patient Tobacco Use Status: Former Tobacco user e-Cigarette/Vaping Use: Never Used service: No Current occupational status: disabled Cognitive needs: No Hearing needs: No Vision needs: Yes Review of Systems Const Denies chills and Denies fever(s) Card Denies chest pain and Denies dyspnea Resp Denies dyspnea GI Denies abdominal pain, Reports constipation, Reports diarrhea (one episode a few days ago), Denies nausea and Denies vomiting Reports hematuria (pink in toilet paper yesterday), Reports difficulty voiding, Denies genital pruritis, Reports dysuria, Denies urinary incontinence and Reports urinary urgency Musc Reports back pain Physical Exam Vital Signs: Last Vital Signs Temp 98.2 F 08/25/24 13:43 Pulse 84 08/25/24 13:43 BP 136/84 08/25/24 13:52 Pulse Ox 95 08/25/24 13:43 Oxygen Delivery Method Room Air 08/25/24 13:43 BMI result Body Mass Index 29.6 General: Non-toxic, NAD. Speaking full sentences. Skin: Warm dry throughout Eye: EOMI Respiratory: CTA bilaterally. No wheezes, rales or rhonchi Cardiac: RRR. No murmur Abdominal: BS present. Non-tender to palpation. No CVAT. No rebound or guarding MSK: Full ROM extremities. Neurology: Alert. No aphasia or facial droop. Gait without abnormality Psych: Good mood and affect Assessment & Plan Assessment & Plan (1) Urinary tract infection: Code(s): N39.0 - Urinary tract infection, site not specified Qualifiers: Urinary tract infection type: acute cystitis Hematuria presence: with hematuria Qualified Code(s): N30.01 - Acute cystitis with hematuria Plan: Patient seen and evaluated. U/a: + leuks Culture sent Amoxicllin; pt has taken and tolerates well. We discussed her allergies in depth Increase fluids/rest F/U with PCP Patient gave verbal understanding and had no additional questions or concerns at time of discharge All questions answered Medications: New amoxicillin 500 mg PO BID 14 caps 0RF Coding Level of Care Code Est Pt Level 3 (34090) Diagnoses Acute cystitis with hematuria N30.01 Urinary tract infection type: acute cystitis Hematuria presence: with hematuria
[2024-08-25 13:52] VITALS: BP 136/84
--- OUTSIDE RECORDS SUMMARY | 2024-08-25 14:54 | XMS_ITS | Encounter Summary ---
Author Organization [facility] Address [address] [place] [address] Care Team Providers Care Painter Touch Up Name Role Phone Almaz Billy MD Primary Care Provider [phone] Encounter Details Date Type Department Care Team (Latest Contact Info) Description 01/14/2024 Lab Requisition [facility] [address] [facility] [place] [id number] Rachel Child MD [address] [address] Encounter for gynecological examination (general) [...] or malignancy 01/16/2024 3:49 PM EST [facility] ([facility]) [facility] General Categorization Negative 01/16/2024 3:49 [...] screening system. Technical cytopathology services provided by [facility], at [address] [place] [address] (CLIA # [id number]/Abhishek Ayala MD, Incubator Operator.) 01/16/2024 3:49 PM [facility] Console Pap Interpretation Reported 01/16/2024 3:49 PM [facility] Brushing/Spatula Vaginal structure / Unknown 01/13/2024 01/14/2024 9:46 AM EST us Rachel Child MD LAB CYTOLOGY ORDERABLES Final Result [facility] [address] [place] [address], documented in this encounter Visit Diagnoses Diagnosis Encounter for gynecological examination (general) (routine) without abnormal findings documented in this encounter Additional Health Concerns Infection Onset Date Last Indicated Resolved Time C. difficile Rule-Out 02/06/2024 02/06/20242023 10:20 AM EST Gastrointestinal Rule-Out 02/06/2024 02/06/2024 11:41 AM EST documented as of this encounter Care Teams Painter Touch Up Relationship Specialty Start Date End Date Almaz Billy MD PCP - General Internal Medicine 01/29/24 documented as of this encounter
--- OUTSIDE RECORDS SUMMARY | 2024-08-25 14:55 | XMS_ITS | Data Portability ---
Author Organization [facility] Fixed - Parking Tickets, [employer], [employer] [facility] Address [address] [place] [address] Care Team Providers Care Hostel Parent Name Role Phone STUART MORRISON Primary Care Provider STUART MORRISON Referring Provider THIERRY HARPER Manager Laundry Assessment No assessment recorded. Plan of Treatment Reminders Order Date Submit Date Provider Last Modified By Organization Details Last Modified Time Details Appointments None recorded. Lab CBC 2016 017 [facility], [address] [place], [address], 7 18:03:08 CMP, serum or plasma 2016 017 [facility], [address] [place], [address], 7 18:03:08 erythrocyt e sedimentat ion rate by westergren method 2016 017 [facility], [address] [place], [address], 8 14:34:57 C-reactive protein, quantitati ve, serum or plasma 2016 017 [facility], [address] [place], [address], 8 14:34:57 urinalysis , complete 2016 017 [facility], [address], [place], [address], 7 19:19:41 CBC 2016 017 [facility], [address], [place], [address], 7 01:49:23 lipid panel, serum 2016 017 [facility], [address], [place], [address], 7 12:58:38 venipunctu re 2016 017 [facility], [address], [place], [address], 7 10:30:07 1,5-anhydr oglucitol, serum or plasma 2016 017 [facility], [address], [place], [address], 7 12:58:39 HbA1c (hemoglobi n A1c), blood 2016 017 [facility], [address], [place], [address], 7 20:36:42 CMP, serum or plasma 2016 017 [facility], [address], [place], [address], 7 12:58:37 iron + TIBC + ferritin, serum 2016 017 [facility], [address], [place], [address], 7 12:58:37 erythrocyt e sedimentat ion rate by westergren method 2015 017 [facility], [address], [place], [address], 7 12:28:13 CMP, serum or plasma 2015 017 [facility], [address], [place], [address], 7 12:28:14 CBC 2015 017 [facility], [address], [place], [address], 7 12:28:12 C-reactive protein, quantitati ve, serum or plasma 2015 017 [facility], [address], [place], [address], 7 12:28:14 Referral None recorded. Procedures None recorded. Surgeries None recorded. Imaging electrocar diogram 2016 017 [email or web address] In-Office Order, Internal Use Only DO Not Attach Compendium DO Not Attach Compendium, Do Not Delete/merge, [id number] 7 17:19:46 Medication Orders omeprazole 20 mg capsule,de layed release 2016 017 [facility], [address] [place], [address], 7 18:26:54 tizanidine 4 mg tablet 2016 017 [facility], [address] [place], [address], 7 18:26:54 hydrochlor othiazide 25 mg tablet 2016 017 [facility], [address] [place] [address], [place], [address], 7 18:26:56 losartan 100 mg tablet 2016 017 [facility], [address] [place], [place], [address], 7 18:26:53 atorvastat in 40 mg tablet 2016 017 [facility], [address] [place] [address], [place], [address], 7 18:26:55 metformin 500 mg tablet 2016 017 [facility], [address] [place] [address], [place], [address], 7 18:26:53 Onglyza 5 mg tablet 2016 017 [facility], [address] [place] [address], [place], [address], 7 18:26:52 gabapentin 600 mg tablet 2016 017 [facility], [address] [place] [address], [place], [address], 7 18:26:51 Cymbalta 30 mg capsule,de layed release 2016 017 INTERFACE [facility], [address] [place] [address], [place], [address], 7 18:26:52 buspirone 15 mg tablet 2016 017 INTERFACE [facility], [address] [place] [address], [place], [address], 7 18:26:57 clonazepam 1 mg tablet 2016 017 [email or web address] [facility], [address] [place], [address], 7 18:28:48 Enbrel SureClick 50 mg/mL (1 mL) subcutaneo us pen injector 2016 017 [email or web address] Not available 7 18:28:48 clobetasol 0.05 % topical ointment 2016 017 [facility]FACE [facility], [address] [place], [address], 7 18:26:56 clobetasol 0.05 % scalp solution 2016 017 INTERFACE [facility], [address] [place], [address], 7 18:26:51 ferrous sulfate 325 mg (65 mg iron) tablet 2016 017 INTERFACE [facility], [address] [place], [address], 7 18:26:55 Enbrel SureClick 50 mg/mL (1 mL) subcutaneo us pen injector 2016 017 ATHENAFAX [employer] [facility]), [address] [address], [place], [address], 7 16:41:00 Nesina 25 mg tablet 2016 017 [email or web address] [facility], [address] [place], [address], 7 16:16:47 Patient TargetsNo targets recorded. Patient Instructions Encounter Date Encounter Id Patient Instructions Last Modified By Organization Details Last Modified Time 11/28/2015 [id number] call us if condition worsens Not available 11/28/2015 15:26:26 Patient aware of issues with biologics such as stopping medication/callin g us if any infections arise, also must stop biologic prior to suregery ( should call us if surgery planned), aware of cancers such as lymphoma, skin cancers, etc.. Not available 11/28/2015 15:26:26 02/27/2016 [id number] anemia: care instructions MORA Not available 02/28/2016 [...] medical attention if symptoms worsen as directed. Clip Speaking program was used in part of the creation of this note. The voice recognition is set for speed over accuracy. Inherently this may result in phonetic, recognition or omissions errors in this audio recording engineer. [email or web address] Not available 02/27/2016 18:38:48 04/02/2016 [id number] Patient Instructions call us if condition worsens Not available 04/02/2016 16:13:16 Patient aware of issues with biologics such as stopping medication/callin g us if any infections arise, also must stop biologic prior to surgery ( should call us if surgery planned), aware of cancers such as lymphoma, skin cancers, etc.. Not available 04/02/2016 16:25:17 06/26/2016 [id number] Patient Instructions call us if condition worsens Not available 06/26/2016 13:58:15 Patient aware of issues with biologics such as stopping medication/callin g us if any infections arise, also must stop biologic prior to surgery ( should call us if surgery planned), aware of cancers such as lymphoma, skin cancers, etc.. Not available 06/26/2016 13:57:04 06/27/2016 [id number] starting a weigh t loss plan: care [...] medical attention if symptoms worsen as directed. Savored program was used in part of the creation of this note. The voice recognition is set for speed over accuracy. Inherently this may result in phonetic, recognition or omissions errors in this audio recording engineer. [email or web address] Not available 06/27/2016 18:28:21 Reason for [...] DO Not Attach Compendium, Do Not Delete/merge, [id number] 11/21/2015 19:41:57 11/21/19 16 11/21/2015 urina lysis , dipst ick ketone small negati ve Not Available In-Office Order Internal Use Only DO Not Attach Compendium DO Not Attach Compendium, Do Not Delete/merge, [id number] 11/21/2015 19:41:57 11/21/19 16 11/21/2015 urina lysis , dipst ick bilirubin small negati ve Not Available In-Office Order Internal Use Only DO Not Attach Compendium DO Not Attach Compendium, Do Not Delete/merge, [id number] 11/21/2015 19:41:57 11/21/19 16 11/21/2015 urina lysis , dipst ick glucose neg negati ve Not Available In-Office Order Internal Use Only DO Not Attach Compendium DO Not Attach Compendium, Do Not Delete/merge, [id number] 11/21/2015 19:41:57 11/14/19 16 11/14/2015 urina lysis , compl ete color LIGHT YELLOW Not Available [facility] [address] [place], [address], 11/14/2015 18:52:56 11/14/19 16 11/14/2015 urina lysis , compl ete appearance CLEAR clear Not Available [facility] [address] [place], [address], 11/14/2015 18:52:56 11/14/19 16 11/14/2015 urina lysis , compl ete specific gravity 1.010 Not Available [facility] [address], [place], [address], 11/14/2015 18:52:56 11/14/19 16 11/14/2015 urina lysis , compl ete pH 7.0 Not Available [facility] [address], [place], [address], 11/14/2015 18:52:56 11/14/19 16 11/14/2015 urina lysis , compl ete glucose NEGATI VE negati ve Not Available [facility] [address], [place], [address], 11/14/2015 18:52:56 11/14/19 16 11/14/2015 urina lysis , compl ete bilirubin NEGATI VE negati ve Not Available [facility] [address], [place], [address], 11/14/2015 18:52:56 11/14/19 16 11/14/2015 urina lysis , compl ete ketone NEGATI VE negati ve Not Available [facility] [address] [facility] [address], [place], [address], 11/14/2015 18:52:56 11/14/19 16 11/14/2015 urina lysis , compl ete blood NEGATI VE negati ve Not Available [facility] [address] [facility] [address], [place], [address], 11/14/2015 18:52:56 11/14/19 16 11/14/2015 urina lysis , compl ete protein NEGATI VE negati ve Not Available [facility] [address] [facility] [address], [place], [address], 11/14/2015 18:52:56 11/14/19 16 11/14/2015 urina lysis , compl ete urobilinogen NORMAL Not Available [facility] [address], [place], [address], 11/14/2015 18:52:56 11/14/19 16 11/14/2015 urina lysis , compl ete nitrite NEGATI VE negati ve Not Available [facility] [address] [facility] [address], [place], [address], 11/14/2015 18:52:56 11/14/19 16 11/14/2015 urina lysis , compl ete leukocytes NEGATI VE negati ve Not Available [facility] [address] [facility], [place], [address], 11/14/2015 18:52:56 11/14/19 16 11/14/2015 CBC WBC 4.4 x10^3 /uL 4.4-11 .0 Not Available [facility] [address] [place], [place] [address]y [address] [place], [address], 11/14/2015 19:40:45 11/14/19 16 11/14/2015 CBC RBC 4.71 x10^6 /uL 4.50-5 .10 Not Available [facility] [address] [place] [address] [address] [place], [address], 11/14/2015 19:40:45 11/14/19 16 11/14/2015 CBC HGB 12.0 g/dL 12.3-1 5.3 low RESUL TS VERIF IED BY REPEA T ROOSEVELT SIS Not Available [facility] [address] [place] [address] [address] [place], [address], 11/14/2015 19:40:45 11/14/19 16 11/14/2015 CBC HCT 37.5 % 35.9-4 4.6 Not Available [facility] [address] [place], [place] [address]y [address] [place], [address], 11/14/2015 19:40:45 11/14/19 16 11/14/2015 CBC MCV 79.8 fL 80.0-9 6.0 low Not Available [facility] [address] [place], [place] [address]y [address] [facility], [place], [address], 11/14/2015 19:40:45 11/14/19 16 11/14/2015 CBC MCH 25.5 pg 27.5-3 3.2 low Not Available [facility] [address], [place], [address], 11/14/2015 19:40:45 11/14/19 16 11/14/2015 CBC MCHC 31.9 g/dL 33.4-3 5.5 low Not Available [facility] [address], [place], [address], 11/14/2015 19:40:45 11/14/19 16 11/14/2015 CBC RDW 17.2 % 11.6-1 3.7 high Not Available [facility] [address], [place], [address], 11/14/2015 19:40:45 11/14/19 16 11/14/2015 CBC plt 201 x10^3 /uL 150-45 0 Not Available [facility] [address], [place], [address], 11/14/2015 19:40:45 11/14/19 16 11/14/2015 CBC MPV 9.1 fL 7.4-10 .4 Not Available [facility] [address], [place], [address], 11/14/2015 19:40:45 11/14/19 16 11/14/2015 CBC neut # 2.2 x10^3 /uL 1.5-7. 2 Not Available [facility] [address], [place], [address], 11/14/2015 19:40:45 11/14/19 16 11/14/2015 CBC lymph# 1.6 x10^3 /uL 0.7-4. 9 Not Available [facility] [address], [place], [address], 11/14/2015 19:40:45 11/14/19 16 11/14/2015 CBC mono# 0.5 x10^3 /uL 0.1-0. 9 Not Available [facility] [address], [place], [address], 11/14/2015 19:40:45 11/14/19 16 11/14/2015 CBC eos # 0.0 x10^3 /uL 0.0-0. 4 Not Available [facility] [address], [place], [address], 11/14/2015 19:40:45 11/14/19 16 11/14/2015 CBC baso # 0.0 x10^3 /uL 0.0-0. 2 Not Available [facility] [address], [place], [address], 11/14/2015 19:40:45 11/14/19 16 11/14/2015 CBC neut % 50.5 % 42.2-7 5.2 Not Available [facility] [address] [place], [address], 11/14/2015 19:40:45 11/14/19 16 11/14/2015 CBC mono% 11.9 % 1.7-9. 3 high Not Available [facility] [address] [place], [address], 11/14/2015 19:40:45 11/14/19 16 11/14/2015 CBC eos% 1.0 % 1.0-6. 0 Not Available [facility] [address] [place], [address], 11/14/2015 19:40:45 11/14/19 16 11/14/2015 CBC baso% 0.5 % 0.0-4. 0 Not Available [facility] [address] [place], [address], 11/14/2015 19:40:45 11/14/19 16 11/14/2015 CBC lymph % 36.1 % 20.5-5 1.1 Not Available [facility] [address] [facility] [address], [place], [address], 11/14/2015 19:40:45 11/14/19 16 11/14/2015 CMP, serum or plasm a sodium 139 mmol/ L 136-14 5 Not Available [facility] [address] [place], [place] [address]y [address], [place], [address], 11/14/2015 19:54:40 11/14/19 16 11/14/2015 CMP, serum or plasm a potassium 4.5 mmol/ L 3.6-5. 1 Not Available [facility] [address] [place], [place] [address]y [address] [place], [address], 11/14/2015 19:54:40 11/14/19 16 11/14/2015 CMP, serum or plasm a chloride 101 mmol/ L 98-108 Not Available [facility] [address] [place], [place] [address]y [address] [place], [address], 11/14/2015 19:54:40 11/14/19 16 11/14/2015 CMP, serum or plasm a carbon dioxide 34 mmol/ L 18-33 high Not Available [facility] [address] [place], [place] [address]y [address] [place], [address], 11/14/2015 19:54:40 11/14/19 16 11/14/2015 CMP, serum or plasm a glucose 79 mg/dL 65-99 Not Available [facility] [address] [place], [place] [address]y [address] [place], [address], 11/14/2015 19:54:40 11/14/19 16 11/14/2015 CMP, serum or plasm a BUN 14 mg/dL 7-18 Not Available [facility] [address] [place], [place] [address]y [address] [place], [address], 11/14/2015 19:54:40 11/14/19 16 11/14/2015 CMP, serum or plasm a creatinine 0.8 mg/dL 0.8-1. 3 Not Available [facility] [address] [place] [address] [address], [place], [address], 11/14/2015 19:54:40 11/14/19 16 11/14/2015 CMP, serum or plasm a BUN/creat ratio 17.5 calc 10.0-2 5.0 Not Available [facility] [address] [place], [place] [address]y [address], [place], [address], 11/14/2015 19:54:40 11/14/19 16 11/14/2015 CMP, serum or plasm a calcium 8.7 mg/dL 8.5-10 .6 Not Available [facility] [address] [place], [place] [address]y [address], [place], [address], 11/14/2015 19:54:40 11/14/19 16 11/14/2015 CMP, serum or plasm a total protein 6.9 g/dL 6.4-8. 1 Not Available [facility] [address] [place], [place] [address]y [address], [place], [address], 11/14/2015 19:54:40 11/14/19 16 11/14/2015 CMP, serum or plasm a albumin 4.1 g/dL 3.3-5. 5 Not Available [facility] [address] [place] [address] [address], [place], [address], 11/14/2015 19:54:40 11/14/19 16 11/14/2015 CMP, serum or plasm a globulin 2.8 g/dL 1.3-4. 0 Not Available [facility] [address] [place] [address] [address], [place], [address], 11/14/2015 19:54:40 11/14/19 16 11/14/2015 CMP, serum or plasm a A/G ratio 1.5 calc 1.0-2. 8 Not Available [facility] [address] [place] [address] [address] [place], [address], 11/14/2015 19:54:40 11/14/19 16 11/14/2015 CMP, serum or plasm a alk. phosphatase 69 U/L 50-128 Not Available [facility] [address] [place] [address] [address] [place], [address], 11/14/2015 19:54:40 11/14/19 16 11/14/2015 CMP, serum or plasm a ALT (SGPT) 28 U/L 10-47 Not Available [facility] [address] [place] [address] [address] [place], [address], 11/14/2015 19:54:40 11/14/19 16 11/14/2015 CMP, serum or plasm a AST (SGOT) 30 U/L 11-38 Not Available [facility] [address] [place] [address] [address] [place], [address], 11/14/2015 19:54:40 11/14/19 16 11/14/2015 CMP, serum or plasm a total bilirubin 0.46 mg/dL 0.20-1 .60 Not Available [facility] [address] [place] [address] [address] [place], [address], 11/14/2015 19:54:40 11/14/19 16 11/14/2015 CMP, serum or plasm a GFR >60.0 >=60.0 IF PATIE NT IS AFRIC AN AMERI CAN, MULTI PLY RESUL T BY 1.21 Not Available [facility] [address] [place] [address] [address] [place], [address], 11/14/2015 19:54:40 11/14/19 16 11/14/2015 lipid panel , serum cholesterol 111 mg/dL 20-180 Not Available [facility] [address], [address], 11/14/2015 19:54:40 11/14/19 16 11/14/2015 lipid panel , serum triglyceride s 62 mg/dL 30-150 Not Available [facility] [address] [place] [address], [address], 11/14/2015 19:54:40 11/14/19 16 11/14/2015 lipid panel , serum HDL cholesterol 42 mg/dL 23-92 Not Available [facility] [address] [place] [address], [address], 11/14/2015 19:54:40 11/14/19 16 11/14/2015 lipid panel , serum VLDL cholesterol 12 calc Not Available [facility] [address] [place] [address], [address], 11/14/2015 19:54:40 11/14/19 16 11/14/2015 lipid panel , serum HDL risk factor 2.6 calc RISK FACTO R MALE FEMAL E 1/2 AVG RISK 3.4 3.3 AVG RISK 5.0 4.0 2X AVG RISK 9.6 7.1 3X AVG RISK 24.0 11.0 Not Available [facility] [address] [place] [address], [address], 11/14/2015 19:54:40 11/14/19 16 11/14/2015 lipid panel , serum cholesterol/ HDL ratio 3 calc CHOL/ HDL RATIO <3 OPTIM AL 3-4 BORDE RLINE >6 HIGH RISK Not Available [facility] [address] [facility] [address] [place], [address], 11/14/2015 19:54:40 11/14/19 16 11/14/2015 lipid panel , serum non-HDL cholesterol 69 calc NON-H DL TROY STERO L <190 MG/DL LOW RISK <160 MG/DL MODER ATE RISK <130 MG/DL HIGH RISK Not Available [facility] [address], [place], [address], 11/14/2015 19:54:40 11/14/19 16 11/15/2015 CMP, serum or plasm a glucose 96 mg/dL 65-99 normal Fasti ng refer ence inter inocencio Not Available [facility] [address], [place], [address], 11/15/2015 06:13:50 11/14/19 16 11/15/2015 CMP, serum or plasm a urea nitrogen (BUN) 14 mg/dL 7-25 normal Not Available [facility] [address], [place], [address], 11/15/2015 06:13:50 11/14/19 16 11/15/2015 CMP, serum or plasm a creatinine 0.85 mg/dL 0.50-1 .05 normal For patie nts >49 years of age, the refer ence limit for Creat inine is appro ximat mark 13% highe r for peopl e ident ified as Afric an-Am hong n. Not Available [facility] [address], [place], [address], 11/15/2015 06:13:50 11/14/19 16 11/15/2015 CMP, serum or plasm a eGFR non-afr. botswanan 76 mL/mi n/1.7 3m2 > or = 60 normal Not Available [facility] [address], [place], [address], 11/15/2015 06:13:50 11/14/19 16 11/15/2015 CMP, serum or plasm a eGFR 88 mL/mi n/1.7 3m2 > or = 60 normal Not Available [facility] [address], [place], [address], 11/15/2015 06:13:50 11/14/19 16 11/15/2015 CMP, serum or plasm a BUN/creatini ne ratio NOT APPLIC ABLE (calc ) 6-22 Not Available [facility] [address], [place], [address], 11/15/2015 06:13:50 11/14/19 16 11/15/2015 CMP, serum or plasm a sodium 137 mmol/ L 135-14 6 normal Not Available [facility] [address], [place], [address], 11/15/2015 06:13:50 11/14/19 16 11/15/2015 CMP, serum or plasm a potassium 4.3 mmol/ L 3.5-5. 3 normal Not Available [facility] [address], [place], [address], 11/15/2015 06:13:50 11/14/19 16 11/15/2015 CMP, serum or plasm a chloride 100 mmol/ L 98-110 normal Not Available [facility] [address], [place], [address], 11/15/2015 06:13:50 11/14/19 16 11/15/2015 CMP, serum or plasm a carbon dioxide 28 mmol/ L 20-31 normal Not Available [facility] [address], [place], [address], 11/15/2015 06:13:50 11/14/19 16 11/15/2015 CMP, serum or plasm a calcium 8.7 mg/dL 8.6-10 .4 normal Not Available [facility] [address], [place], [address], 11/15/2015 06:13:50 11/14/19 16 11/15/2015 CMP, serum or plasm a protein, total 6.9 g/dL 6.1-8. 1 normal Not Available [facility] [address], [place], [address], 11/15/2015 06:13:50 11/14/19 16 11/15/2015 CMP, serum or plasm a albumin 4.2 g/dL 3.6-5. 1 normal Not Available [facility] [address], [place], [address], 11/15/2015 06:13:50 11/14/19 16 11/15/2015 CMP, serum or plasm a globulin 2.7 g/dL_ (calc ) 1.9-3. 7 normal Not Available [facility] [address], [place], [address], 11/15/2015 06:13:50 11/14/19 16 11/15/2015 CMP, serum or plasm a albumin/glob ulin ratio 1.6 (calc ) 1.0-2. 5 normal Not Available [facility] [address], [place], [address], 11/15/2015 06:13:50 11/14/19 16 11/15/2015 CMP, serum or plasm a bilirubin, total 0.4 mg/dL 0.2-1. 2 normal Not Available [facility] [address], [place], [address], 11/15/2015 06:13:50 11/14/19 16 11/15/2015 CMP, serum or plasm a alkaline phosphatase 62 U/L 33-130 normal Not Available [facility] [address], [place], [address], 11/15/2015 06:13:50 11/14/19 16 11/15/2015 CMP, serum or plasm a AST 27 U/L 10-35 normal Not Available [facility] [address], [place], [address], 11/15/2015 06:13:50 11/14/19 16 11/15/2015 CMP, serum or plasm a ALT 25 U/L 6-29 normal Not Available [facility] [address], [place], [address], 11/15/2015 06:13:50 11/14/19 16 11/15/2015 eryth rocyt e sedim entat ion rate by westollie rgren metho d sed rate by modified westolegren 7 mm/h < or = 30 normal Not Available [facility] [address], [place], [address], 11/15/2015 06:13:51 11/14/19 16 11/15/2015 CBC w/ auto diff white blood cell count 4.5 thous and/u L 3.8-10 .8 normal Not Available [facility] [address], [place], [address], 11/15/2015 06:13:51 11/14/19 16 11/15/2015 CBC w/ auto diff red blood cell count 4.67 bere on/uL 3.80-5 .10 normal Not Available [facility] [address], [place], [address], 11/15/2015 06:13:51 11/14/19 16 11/15/2015 CBC w/ auto diff hemoglobin 11.8 g/dL 11.7-1 5.5 normal Not Available [facility] [address], [place], [address], 11/15/2015 06:13:51 11/14/19 16 11/15/2015 CBC w/ auto diff hematocrit 37.8 % 35.0-4 5.0 normal Not Available [facility] [address], [place], [address], 11/15/2015 06:13:51 11/14/19 16 11/15/2015 CBC w/ auto diff MCV 81.0 fL 80.0-1 00.0 normal Not Available [facility] [place] [facility] [address], [place], [address], 11/15/2015 06:13:51 11/14/19 16 11/15/2015 CBC w/ auto diff MCH 25.3 pg 27.0-3 3.0 low Not Available [facility] [place] [facility] [address], [place], [address], 11/15/2015 06:13:51 11/14/19 16 11/15/2015 CBC w/ auto diff MCHC 31.2 g/dL 32.0-3 6.0 low Not Available [facility] [place] [facility] [address], [place], [address], 11/15/2015 06:13:51 11/14/19 16 11/15/2015 CBC w/ auto diff RDW 17.2 % 11.0-1 5.0 high Not Available [facility] [place] [facility] [address], [place], [address], 11/15/2015 06:13:51 11/14/19 16 11/15/2015 CBC w/ auto diff platelet count 188 thous and/u L 140-40 0 normal Not Available [facility] [place] [facility] [address], [place], [address], 11/15/2015 06:13:51 11/14/19 16 11/15/2015 CBC w/ auto diff MPV 8.4 fL 7.5-11 .5 normal Not Available [facility] [place] [facility] [address], [place], [address], 11/15/2015 06:13:51 11/14/19 16 11/15/2015 CBC w/ auto diff absolute neutrophils 2178 cells /uL 1500-7 800 normal Not Available [facility] [place] [facility] [address], [place], [address], 11/15/2015 06:13:51 10/03/20 16 11/15/2015 CBC w/ auto diff absolute lymphocytes 1683 cells /uL 850-39 00 normal Not Available [facility] [place] [facility] [address], [place], [address], 11/15/2015 06:13:51 11/14/19 16 11/15/2015 CBC w/ auto diff absolute monocytes 567 cells /uL 200-95 0 normal Not Available [facility] [place] [facility] [address], [place], [address], 11/15/2015 06:13:51 11/14/19 16 11/15/2015 CBC w/ auto diff absolute eosinophils 50 cells /uL 15-500 normal Not Available [facility] [place] [facility] [address], [place], [address], 11/15/2015 06:13:51 11/14/19 16 11/15/2015 CBC w/ auto diff absolute basophils 23 cells /uL 0-200 normal Not Available [facility] [place] [facility] [address], [place], [address], 11/15/2015 06:13:51 11/14/19 16 11/15/2015 CBC w/ auto diff neutrophils 48.4 % normal Not Available [facility] [place] [facility] [address], [place], [address], 11/15/2015 06:13:51 11/14/19 16 11/15/2015 CBC w/ auto diff lymphocytes 37.4 % normal Not Available [facility] [place] [facility] [address], [place], [address], 11/15/2015 06:13:51 11/14/19 16 11/15/2015 CBC w/ auto diff monocytes 12.6 % normal Not Available [facility] [place] [facility] [address], [place], [address], 11/15/2015 06:13:51 11/14/19 16 11/15/2015 CBC w/ auto diff eosinophils 1.1 % normal Not Available [facility] [place] [facility] [address], [place], [address], 11/15/2015 06:13:51 11/14/19 16 11/15/2015 CBC w/ auto diff basophils 0.5 % normal Not Available [facility] [place] [facility] [address], [place], [address], 11/15/2015 06:13:51 11/14/19 16 11/15/2015 HbA1c (hemo globi n A1c), blood estimated average glucose 142.7 mg/dL 97.0-1 40.0 high Not Available [facility] [address] [facility] [address] [place], [address], 11/15/2015 07:54:59 11/14/19 16 11/15/2015 HbA1c (hemo [...] OVASC ULAR COMPL ICATI ONS. Not Available [facility] [address] [facility] [address] [place], [address], 11/15/2015 07:54:59 11/14/19 16 11/16/2015 LDL, direc t, serum direct LDL 65 mg/dL <130 Kirk able range <100 mg/dL for patie nts with CHD or diabe sergio and <70 mg/dL for diabe tic patie nts with known heart disea se. Not Available [facility] [address] [place], [address], 11/16/2015 11:48:35 11/14/19 16 11/16/2015 1,5-a nhydr [...] mg/dL . REPOR T COMME NT: EDINSON Juarez. Not Available [facility] [address] [facility] [address] [place], [address], 11/16/2015 11:48:36 11/14/19 16 11/16/2015 T4, free, serum T4, free 1.0 NG/dL 0.8-1. 8 Not Available [facility] [address] [facility] [address] [place], [address], 11/16/2015 17:35:59 11/14/19 16 11/16/2015 TSH, serum or plasm a TSH 1.83 mIU/L 0.40-4 .50 Not Available [facility] [address] [facility] [address] [place], [address], 11/16/2015 17:35:59 11/14/19 16 11/16/2015 C-linnette ctive prote in, quant itati ve, serum or plasm a C-reactive protein 0.20 mg/dL <0.80 Pleas e be advis ed that patie nts tanjain g Carbo xypen icill ins may exhib it false ly decre ased C-Linnette ctive Prote in level s due to an roosevelt tical inter feren ce in this assay . Not Available [facility] [address] [facility] [address] [place], [address], 11/16/2015 17:35:59 11/14/19 16 11/16/2015 eryth rocyt e sedim entat ion rate by august almaraz metho d sed rate by modified emerita 14 mm/h < or = 30 Not Available [facility] [address] [place] [address] [address] [place], [address], 11/16/2015 17:36:00 11/14/19 16 11/16/2015 vitam in B12 + folat e, serum or blood vitamin B12 415 pg/mL 200-11 00 Not Available [facility] [address] [place] [address], [address], 11/16/2015 17:36:00 11/14/19 16 11/16/2015 vitam in B12 + folat e, serum or blood folate, serum 11.7 NG/mL Refer ence Range Low: <3.4 Borde rline : 3.4-5 .4 Vanessa l: >5.4 Not Available [facility] [address] [place] [address], [address], 11/16/2015 17:36:00 11/14/19 16 11/16/2015 iron + TIBC + kimberley tin, serum iron, total 30 mcg/d L 45-160 low Not Available [facility] [address] [place] [address], [address], 11/16/2015 17:36:01 11/14/19 16 11/16/2015 iron + TIBC + kimberley tin, serum iron binding capacity 451 mcg/d L_(ca lc) 250-45 0 high Not Available [facility] [address] [place] [address], [address], 11/16/2015 17:36:01 11/14/19 16 11/16/2015 iron + TIBC + kimberley tin, serum % saturation 7 %_(ca lc) 11-50 low Not Available [facility] [address] [place] [address], [place], [address], 11/16/2015 17:36:01 11/14/19 16 11/16/2015 iron + TIBC + kimberley tin, serum ferritin 18 NG/mL 10-232 Not Available [facility] [address], [place], [address], 11/16/2015 17:36:01 11/14/19 16 11/16/2015 vitam in B1 (thia mine) , blood vitamin B1 (thiamine), blood 79 nmol/ L 78-185 Vitam in suppl ement ation withi n 24 hours prior to blood draw may affec t the accur acy of the [facility] ts. This test was devel oped and its roosevelt tical perfo rmanc e brenton cteri stics have been deter mined by [facility] [employer] s [employer] [place], [place]. It has not been clear ed or appro deana by the U.S. Food and Drug Admin istra tion. This assay has been valid ated pursu ant to the CLIA regul ation s and is used for clini maximo purpo ses. Not Available [facility] [address], [place], [address], 11/19/2015 10:22:49 11/14/19 16 11/16/2015 vitam in B6 (pyri doxin e), plasm a vitamin B6 6.9 NG/mL 2.1-21 .7 Vitam in suppl ement ation withi n 24 hours prior to blood draw may affec t the accur acy of the [facility] ts. This test was devel oped and its roosevelt tical perfo rmanc e brenton cteri stics have been deter mined by [facility] o[employer] s [employer] [place], [place]. It has not been clear ed or appro deana by the U.S. Food and Drug Admin istra tion. This assay has been valid ated pursu ant to the CLIA regul ation s and is used for clini maximo purpo ses. Not Available [facility] [address], [place], [address], 11/19/2015 10:22:50 11/14/19 16 11/14/2015 venip unctu re venipuncture CHARGE Not Available [facility] [address] [facility] [address], [place], [address], 11/14/2015 13:59:26 11/22/19 16 11/24/2015 cultu re, urine culture, urine, routine SEE NOTE CULTU RE, URINE , ROUTI NE MICRO NUMBE R: [id number] TEST STATU S: FINAL SPECI MEN SOURC E: URINE SPECI MEN QUALI TY: ADEQU ATE RESUL T: Multi ple organ isms prese nt, each less than 10,00 0 CFU/m L. These organ isms, commo nly found on exter nal and inter nal genit bronson, are consi dered to be colon izers . No furth er testi ng perfo rmed. Not Available [facility] [address] [facility] [address], [place], [address], 11/24/2015 05:10:54 11/22/19 16 11/24/2015 cultu re, urine culture, urine, routine SEE NOTE CULTU RE, URINE , ROUTI NE MICRO NUMBE R: [id number] TEST STATU S: FINAL SPECI MEN SOURC E: URINE SPECI MEN QUALI TY: ADEQU ATE RESUL T: Multi ple organ isms prese nt, each less than 10,00 0 CFU/m L. These organ isms, commo nly found on exter nal and inter nal genit bronson, are consi dered to be colon izers . No furth er testi ng perfo rmed. Not Available [facility] [address], [place], [address], 11/29/2015 06:33:11 02/16/19 17 02/18/2016 CMP, serum or plasm a glucose 99 mg/dL 65-99 normal Fasti ng refer ence inter inocencio Not Available [facility] [address] [place], [address], 02/18/2016 09:59:52 02/16/1902/18/2016 CMP, serum or plasm a urea nitrogen (BUN) 14 mg/dL 7-25 normal Not Available [facility] [address] [place], [address], 02/18/2016 09:59:52 02/16/1902/18/2016 CMP, serum or plasm a creatinine 0.88 mg/dL 0.50-1 .05 normal For patie nts >49 years of age, the refer ence limit for Creat inine is appro ximat mark 13% highe r for peopl e ident ified as Afric an-Am hong n. Not Available [facility] [address] [place], [address], 02/18/2016 09:59:52 02/16/1902/18/2016 CMP, serum or plasm a eGFR non-afr. botswanan 73 mL/mi n/1.7 3m2 > or = 60 normal Not Available [facility] [address] [place], [address], 02/18/2016 09:59:52 02/16/1902/18/2016 CMP, serum or plasm a eGFR 85 mL/mi n/1.7 3m2 > or = 60 normal Not Available [facility] [address] [place], [address], 02/18/2016 09:59:52 02/16/1902/18/2016 CMP, serum or plasm a BUN/creatini ne ratio NOT APPLIC ABLE (calc ) 6-22 Not Available [facility] [address] [place], [address], 02/18/2016 09:59:52 02/16/1902/18/2016 CMP, serum or plasm a sodium 140 mmol/ L 135-14 6 normal Not Available [facility] [address], [place], [address], 02/18/2016 09:59:52 02/16/1902/18/2016 CMP, serum or plasm a potassium 3.9 mmol/ L 3.5-5. 3 normal Not Available [facility] [address] [facility] [address], [place], [address], 02/18/2016 09:59:52 02/16/1902/18/2016 CMP, serum or plasm a chloride 103 mmol/ L 98-110 normal Not Available [facility] [address] [place], [place] [address]y [address] [place], [address], 02/18/2016 09:59:52 02/16/1902/18/2016 CMP, serum or plasm a carbon dioxide 21 mmol/ L 20-31 normal Not Available [facility] [address] [place], [place] [address]y [address] [place], [address], 02/18/2016 09:59:52 02/16/1902/18/2016 CMP, serum or plasm a calcium 9.7 mg/dL 8.6-10 .4 normal Not Available [facility] [address] [place], [address], 02/18/2016 09:59:52 02/16/1902/18/2016 CMP, serum or plasm a protein, total 6.6 g/dL 6.1-8. 1 normal Not Available [facility] [address] [place], [place] [address]y [address], [place], [address], 02/18/2016 09:59:52 02/16/1902/18/2016 CMP, serum or plasm a albumin 4.0 g/dL 3.6-5. 1 normal Not Available [facility] [address] [place] [address] [address] [place], [address], 02/18/2016 09:59:52 02/16/1902/18/2016 CMP, serum or plasm a globulin 2.6 g/dL_ (calc ) 1.9-3. 7 normal Not Available [facility] [address] [place] [address] [address] [place], [address], 02/18/2016 09:59:52 02/16/1902/18/2016 CMP, serum or plasm a albumin/glob ulin ratio 1.5 (calc ) 1.0-2. 5 normal Not Available [facility] [address] [place] [address] [address] [place], [address], 02/18/2016 09:59:52 02/16/1902/18/2016 CMP, serum or plasm a bilirubin, total 0.7 mg/dL 0.2-1. 2 normal Not Available [facility] [address] [place] [address] [address] [place], [address], 02/18/2016 09:59:52 02/16/1902/18/2016 CMP, serum or plasm a alkaline phosphatase 54 U/L 33-130 normal Not Available [facility] [address] [place] [address] [address] [place], [address], 02/18/2016 09:59:52 02/16/1902/18/2016 CMP, serum or plasm a AST 22 U/L 10-35 normal Not Available [facility] [address] [place] [address] [address] [place], [address], 02/18/2016 09:59:52 02/16/1902/18/2016 CMP, serum or plasm a ALT 32 U/L 6-29 high Not Available [facility] [address] [place] [address] [address] [place], [address], 02/18/2016 09:59:52 02/16/19 17 02/18/2016 eryth rocyt e sedim entat ion rate by august almaraz metho d sed rate by modified emerita 2 mm/h < or = 30 normal Not Available [facility] [address] [place], [place] [address]y [address], [place], [address], 02/18/2016 09:59:53 02/16/19 17 02/19/2016 urina lysis , compl ete color DARK YELLOW yellow normal Not Available [facility] [address] [place], [place] [address]y [address], [place], [address], 02/19/2016 16:55:52 02/16/19 17 02/19/2016 urina lysis , compl ete appearance CLEAR clear normal Not Available [facility] [address] [place] [address] [address] [place], [address], 02/19/2016 16:55:52 02/16/19 17 02/19/2016 urina lysis , compl ete specific gravity 1.018 1.001- 1.035 normal Not Available [facility] [address] [place], [place] [address]y [address], [place], [address], 02/19/2016 16:55:52 02/16/19 17 02/19/2016 urina lysis , compl ete pH 6.0 5.0-8. 0 normal Not Available [facility] [address] [place], [place] [address]y [address] [place], [address], 02/19/2016 16:55:52 02/16/1902/19/2016 urina lysis , compl ete glucose NEGATI VE negati ve normal Not Available [facility] [address] [place], [place] [address]y [address], [place], [address], 02/19/2016 16:55:52 02/16/19 17 02/19/2016 urina lysis , compl ete bilirubin NEGATI VE negati ve normal Not Available [facility] [address] [facility] [address], [place], [address], 02/19/2016 16:55:52 02/16/19 17 02/19/2016 urina lysis , compl ete ketones NEGATI VE negati ve normal Not Available [facility] [address], [place], [address], 02/19/2016 16:55:52 02/16/19 17 02/19/2016 urina lysis , compl ete occult blood NEGATI VE negati ve normal Not Available [facility] [address] [facility] [address], [place], [address], 02/19/2016 16:55:52 02/16/19 17 02/19/2016 urina lysis , compl ete protein NEGATI VE negati ve normal Not Available [facility] [address] [place], [place] [address]y [address], [place], [address], 02/19/2016 16:55:52 02/16/19 17 02/19/2016 urina lysis , compl ete nitrite NEGATI VE negati ve normal Not Available [facility] [address] [place], [place] [address]y [address], [place], [address], 02/19/2016 16:55:52 02/16/19 17 02/19/2016 urina lysis , compl ete leukocyte esterase 1+ negati ve abnormal Not Available [facility] [address] [facility] [address], [place], [address], 02/19/2016 16:55:52 02/16/19 17 02/19/2016 urina lysis , compl ete WBC 0-5 /hpf < or = 5 normal Not Available [facility] [address], [place], [address], 02/19/2016 16:55:52 02/16/19 17 02/19/2016 urina lysis , compl ete RBC NONE SEEN /hpf < or = 2 normal Not Available [facility] [address] [place] [address], [address], 02/19/2016 16:55:52 02/16/19 17 02/19/2016 urina lysis , compl ete squamous epithelial cells 0-5 /hpf < or = 5 Not Available [facility] [address] [place] [address], [place], [address], 02/19/2016 16:55:52 02/16/19 17 02/19/2016 urina lysis , compl ete bacteria NONE SEEN /hpf none seen normal Not Available [facility] [address] [place] [address], [address], 02/19/2016 16:55:52 02/16/19 17 02/19/2016 urina lysis , compl ete hyaline cast NONE SEEN /lpf none seen normal Not Available [facility] [address] [place] [address], [address], 02/19/2016 16:55:52 02/16/19 17 02/19/2016 cultu re, urine culture, urine, routine SEE NOTE CULTU RE, URINE , ROUTI NE MICRO NUMBE R: [id number] TEST STATU S: FINAL SPECI MEN SOURC E: URINE SPECI MEN QUALI TY: ADEQU ATE RESUL T: No Growt h Not Available [facility] [address] [place] [address], [place], [address], 02/19/2016 16:55:53 02/16/19 17 02/19/2016 cultu re, urine reflexive urine culture CULTUR E INDICA LASHELL - RESULT S TO FOLLOW Not Available [facility] [address] [place] [address], [place], [address], 02/20/2016 08:18:09 02/16/19 17 02/20/2016 HbA1c (hemo globi n A1c), blood hemoglobin [...] 36:s1 1-s66 For the purpo se of magdi elamg for the prese nce of diabe sergio [...] diabe sergio for child linda. Not Available [facility] [address] [place], [address], 02/20/2016 18:02:08 02/16/19 17 02/20/2016 CBC white blood cell count 6.6 thous and/u L 3.8-10 .8 normal Not Available [facility] [address] [place], [address], 02/20/2016 18:02:09 02/16/19 17 02/20/2016 CBC red blood cell count 5.06 bere on/uL 3.80-5 .10 normal Not Available [facility] [address] [place], [address], 02/20/2016 18:02:09 02/16/19 17 02/20/2016 CBC hemoglobin 13.9 g/dL 11.7-1 5.5 normal Not Available [facility] [address] [place], [address], 02/20/2016 18:02:02/16/19 17 02/20/2016 CBC hematocrit 43.5 % 35.0-4 5.0 normal Not Available [facility] [address], [place], [address], 02/20/2016 18:02:02/16/19 17 02/20/2016 CBC MCV 85.9 fL 80.0-1 00.0 normal Not Available [facility] [address], [place], [address], 02/20/2016 18:02:02/16/19 17 02/20/2016 CBC MCH 27.6 pg 27.0-3 3.0 normal Not Available [facility] [address] [place], [place] [address]y [address] [place], [address], 02/20/2016 18:02:02/16/19 17 02/20/2016 CBC MCHC 32.1 g/dL 32.0-3 6.0 normal Not Available [facility] [address], [place], [address], 02/20/2016 18:02:02/16/19 17 02/20/2016 CBC RDW 16.2 % 11.0-1 5.0 high Not Available [facility] [address] [place] [address] [address], [place], [address], 02/20/2016 18:02:02/16/19 17 02/20/2016 CBC platelet count 260 thous and/u L 140-40 0 normal Not Available [facility] [address], [place], [address], 02/20/2016 18:02:02/16/19 17 02/20/2016 CBC MPV 9.1 fL 7.5-11 .5 normal Not Available [facility] [address], [place], [address], 02/20/2016 18:02:02/16/19 17 02/20/2016 CBC absolute neutrophils 3835 cells /uL 1500-7 800 normal Not Available [facility] [address], [place], [address], 02/20/2016 18:02:02/16/19 17 02/20/2016 CBC absolute lymphocytes 2138 cells /uL 850-39 00 normal Not Available [facility] [address], [place], [address], 02/20/2016 18:02:02/16/19 17 02/20/2016 CBC absolute monocytes 370 cells /uL 200-95 0 normal Not Available [facility] [address], [place], [address], 02/20/2016 18:02:02/16/19 17 02/20/2016 CBC absolute eosinophils 224 cells /uL 15-500 normal Not Available [facility] [address], [place], [address], 02/20/2016 18:02:02/16/19 17 02/20/2016 CBC absolute basophils 33 cells /uL 0-200 normal Not Available [facility] [address], [place], [address], 02/20/2016 18:02:02/16/19 17 02/20/2016 CBC neutrophils 58.1 % normal Not Avai lable [facility] [address], [place], [address], 02/20/2016 18:02:02/16/19 17 02/20/2016 CBC lymphocytes 32.4 % normal Not Avai lable [facility] [address], [place], [address], 02/20/2016 18:02:02/16/19 17 02/20/2016 CBC monocytes 5.6 % normal Not Availa ble [facility] [address], [place], [address], 02/20/2016 18:02:02/16/19 17 02/20/2016 CBC eosinophils 3.4 % normal Not Avai lable [facility] [address] [facility] [address], [place], [address], 02/20/2016 18:02:02/16/19 17 02/20/2016 CBC basophils 0.5 % normal Not Availa ble [facility] [address] [facility] [address], [place], [address], 02/20/2016 18:02:02/16/19 17 02/20/2016 1,5-a nhydr ogluc [...] asing above 180 mg/dL . Not Available [facility] [address] [facility] [address], [place], [address], 02/20/2016 18:02:10 02/16/19 17 02/20/2016 vitam in B12 + folat e, serum or blood vitamin B12 441 pg/mL 200-11 00 normal Not Available [facility] [address], [place], [address], 02/20/2016 18:02:10 02/16/19 17 02/20/2016 vitam in B12 + folat e, serum or blood folate, serum 10.9 NG/mL normal Refer ence Range Low: <3.4 Borde rline : 3.4-5 .4 Vanessa l: >5.4 Not Available [facility] [address] [facility] [address] [place], [address], 02/20/2016 18:02:10 02/16/19 17 02/20/2016 iron + TIBC + kimberley tin, serum iron, total 90 mcg/d L 45-160 normal Not Available [facility] [address] [place] [address] [address] [place], [address], 02/20/2016 18:02:10 02/16/19 17 02/20/2016 iron + TIBC + kimberley tin, serum iron binding capacity 397 mcg/d L_(ca lc) 250-45 0 normal Not Available [facility] [address] [facility] [address] [place], [address], 02/20/2016 18:02:10 02/16/19 17 02/20/2016 iron + TIBC + kimberley tin, serum % saturation 23 %_(ca lc) 11-50 normal Not Available [facility] [address] [place] [address] [address] [place], [address], 02/20/2016 18:02:10 02/16/19 17 02/20/2016 iron + TIBC + kimberley tin, serum ferritin 26 NG/mL 10-232 normal Not Available [facility] [address] [place], [address], 02/20/2016 18:02:10 02/16/19 17 02/20/2016 lipid panel , serum cholesterol, total 130 mg/dL 125-20 0 normal Not Available [facility] [address] [place] [address], [address], 02/20/2016 18:02:11 02/16/1902/20/2016 lipid panel , serum HDL cholesterol 47 mg/dL > or = 46 normal Not Available [facility] [address] [facility] [address], [place], [address], 02/20/2016 18:02:11 02/16/1902/20/2016 lipid panel , serum triglyceride s 92 mg/dL <150 normal Not Available [facility] [address] [facility] [address], [place], [phone], 02/20/2016 18:02:11 02/16/1902/20/2016 lipid panel , serum direct LDL 70 mg/dL <130 normal Kirk able range <100 mg/dL for patie nts with CHD or diabe sergio and <70 mg/dL for diabe tic patie nts with known heart disea se. Not Available [facility] [address] [facility] [address], [place], [address], 02/20/2016 18:02:11 02/16/1902/20/2016 lipid panel , serum chol/HDLC ratio 2.8 (calc ) < or = 5.0 normal Not Available [facility] Services [address] [facility] [address] [place], [address], 02/20/2016 18:02:11 02/16/1902/20/2016 lipid panel , serum non HDL cholesterol 83 mg/dL _(maximo c) normal Targe t for non-H DL troy stero l is 30 mg/dL highe r than LDL troy stero l targe t. Not Available [facility] [address] [facility] [address], [place], [address], 02/20/2016 18:02:11 02/16/1902/17/2016 venip unctu re results Compl ete Not Available [facility] [address], [place], [address], 02/17/2016 15:55:13 02/21/19 17 02/23/2016 fecal occul t blood , immun oassa y, stool immunoassay occult blood NEGATI VE Not Available [facility] [facility] [address], [place], [address], 02/23/2016 08:43:53 02/21/19 17 02/24/2016 micro album in/cr eatin ine, ratio , 24h urine microalbumin , 24 hour ur 7 mg/24 _h <30 normal Not Available [facility] [facility] [address], [place], [address], 02/24/2016 13:00:54 02/21/19 17 02/24/2016 micro album [...] ory. Not Available [facility] [address] [facility] [address], [place], [address], 02/24/2016 13:00:54 02/21/19 17 02/24/2016 micro album in/cr eatin ine, ratio , 24h urine creatinine, 24 hour urine 1.45 g/24_ h 0.63-2 .50 normal Not Available [facility] [address], [place], [address], 02/24/2016 13:00:54 03/27/19 17 03/28/2016 CBC WBC 6.1 x10^3 /uL 4.4-11 .0 Not Available [facility], [place], [address], 03/28/2016 12:28:12 03/27/19 17 03/28/2016 CBC RBC 4.84 x10^6 /uL 4.50-5 .10 Not Available [facility] [address], [place], [address], 03/28/2016 12:28:12 03/27/19 17 03/28/2016 CBC HGB 13.5 g/dL 12.3-1 5.3 Not Available [facility] [address] [place] [address] [address], [place], [address], 03/28/2016 12:28:12 03/27/19 17 03/28/2016 CBC HCT 41.5 % 35.9-4 4.6 Not Available [facility] [address] [place] [address] [address], [place], [address], 03/28/2016 12:28:12 03/27/19 17 03/28/2016 CBC MCV 85.6 fL 80.0-9 6.0 Not Available [facility] [address] [place] [address] [address] [place], [address], 03/28/2016 12:28:12 03/27/19 17 03/28/2016 CBC MCH 27.9 pg 27.5-3 3.2 Not Available [facility] [address], [place], [address], 03/28/2016 12:28:12 03/27/19 17 03/28/2016 CBC MCHC 32.5 g/dL 33.4-3 5.5 low Not Available [facility] [address], [place], [address], 03/28/2016 12:28:12 03/27/19 17 03/28/2016 CBC RDW 14.2 % 11.6-1 3.7 high Not Available [facility], [place], [address], 03/28/2016 12:28:12 03/27/19 17 03/28/2016 CBC plt 249 x10^3 /uL 150-45 0 Not Available [facility], [place], [address], 03/28/2016 12:28:12 03/27/19 17 03/28/2016 CBC MPV 9.6 fL 7.4-10 .4 Not Available [facility], [place], [address], 03/28/2016 12:28:12 03/27/19 17 03/28/2016 CBC neut # 3.4 x10^3 /uL 1.5-7. 2 Not Available [facility], [place], [address], 03/28/2016 12:28:12 03/27/19 17 03/28/2016 CBC lymph# 1.9 x10^3 /uL 0.7-4. 9 Not Available [facility], [place], [address], 03/28/2016 12:28:12 03/27/19 17 03/28/2016 CBC mono# 0.5 x10^3 /uL 0.1-0. 9 Not Available [facility], [place], [address], 03/28/2016 12:28:12 03/27/19 17 03/28/2016 CBC eos # 0.2 x10^3 /uL 0.0-0. 4 Not Available [facility] [address], [place], [address], 03/28/2016 12:28:12 03/27/19 17 03/28/2016 CBC baso # 0.1 x10^3 /uL 0.0-0. 2 Not Available [facility] [address], [place], [address], 03/28/2016 12:28:12 03/27/19 17 03/28/2016 CBC neut % 55.5 % 42.2-7 5.2 Not Available [facility] [address], [place], [address], 03/28/2016 12:28:12 03/27/19 17 03/28/2016 CBC mono% 7.9 % 1.7-9. 3 Not Available [facility], [place], [address], 03/28/2016 12:28:12 03/27/19 17 03/28/2016 CBC eos% 3.8 % 1.0-6. 0 Not Available [facility], [place], [address], 03/28/2016 12:28:12 03/27/19 17 03/28/2016 CBC baso% 0.9 % 0.0-4. 0 Not Available [facility] [address], [place], [address], 03/28/2016 12:28:12 03/27/19 17 03/28/2016 CBC lymph % 31.9 % 20.5-5 1.1 Not Available [facility] [address], [place], [address], 03/28/2016 12:28:12 03/27/19 17 03/28/2016 eryth rocyt e sedim entat ion rate by august lagunasren metho d sed rate 11 mm/HR 0-20 Not Available [facility] [address] [place], [place] [address]y [address], [place], [address], 03/28/2016 12:28:13 03/27/19 17 03/28/2016 CMP, serum or plasm a sodium 139 mmol/ L 136-14 5 Not Available [facility] [address] [place], [place] [address]y [address] [place], [address], 03/28/2016 12:28:13 03/27/19 17 03/28/2016 CMP, serum or plasm a potassium 4.2 mmol/ L 3.6-5. 2 Not Available [facility] [address] [place], [place] [address]y [address] [place], [address], 03/28/2016 12:28:13 03/27/19 17 03/28/2016 CMP, serum or plasm a chloride 102 mmol/ L 98-108 Not Available [facility] [address] [place], [place] [address]y [address] [place], [address], 03/28/2016 12:28:13 03/27/19 17 03/28/2016 CMP, serum or plasm a carbon dioxide 29 mmol/ L 18-33 Not Available [facility] [address] [place], [place] [address]y [address] [place], [address], 03/28/2016 12:28:13 03/27/19 17 03/28/2016 CMP, serum or plasm a glucose 119 mg/dL 65-99 high Not Available [facility] [address] [place], [place] [address]y [address] [place], [address], 03/28/2016 12:28:13 03/27/19 17 03/28/2016 CMP, serum or plasm a BUN 23 mg/dL 7-18 high Not Available [facility] [address] [place], [place] [address]y [address] [place], [address], 03/28/2016 12:28:13 03/27/19 17 03/28/2016 CMP, serum or plasm a creatinine 0.8 mg/dL 0.8-1. 3 Not Available [facility] [address] [place] [address] [address], [place], [address], 03/28/2016 12:28:13 03/27/1903/28/2016 CMP, serum or plasm a BUN/creat ratio 28.8 calc 10.0-2 5.0 high Not Available [facility] [address] [place], [place] [address]y [address], [place], [address], 03/28/2016 12:28:13 03/27/1903/28/2016 CMP, serum or plasm a calcium 9.7 mg/dL 8.5-10 .6 Not Available [facility] [address] [place], [place] [address]y [address], [place], [address], 03/28/2016 12:28:13 03/27/1903/28/2016 CMP, serum or plasm a total protein 6.8 g/dL 6.4-8. 1 Not Available [facility] [address] [place], [place] [address]y [address], [place], [address], 03/28/2016 12:28:13 03/27/1903/28/2016 CMP, serum or plasm a albumin 4.2 g/dL 3.3-5. 5 Not Available [facility] [address] [place], [place] [address]y [address], [place], [address], 03/28/2016 12:28:13 03/27/1903/28/2016 CMP, serum or plasm a globulin 2.6 g/dL 1.3-4. 0 Not Available [facility] [address] [place], [place] [address]y [address], [place], [address], 03/28/2016 12:28:13 03/27/1903/28/2016 CMP, serum or plasm a A/G ratio 1.6 calc 1.0-2. 8 Not Available [facility] [address] [place] [address] [address] [place], [address], 03/28/2016 12:28:13 03/27/19 17 03/28/2016 CMP, serum or plasm a alk. phosphatase 71 U/L 50-128 Not Available [facility] [address] [place] [address] [address] [place], [address], 03/28/2016 12:28:13 03/27/1903/28/2016 CMP, serum or plasm a ALT (SGPT) 29 U/L 10-47 Not Available [facility] [address] [place] [address] [address] [place], [address], 03/28/2016 12:28:13 03/27/19 17 03/28/2016 CMP, serum or plasm a AST (SGOT) 18 U/L 11-38 Not Available [facility] [address] [place] [address] [address] [place], [address], 03/28/2016 12:28:13 03/27/1903/28/2016 CMP, serum or plasm a total bilirubin 0.52 mg/dL 0.20-1 .60 Not Available [facility] [address] [place] [address] [address] [place], [address], 03/28/2016 12:28:13 03/27/1903/28/2016 CMP, serum or plasm a GFR >60.0 >=60.0 IF PATIE NT IS AFRIC AN AMERI CAN, MULTI PLY RESUL T BY 1.21 Not Available [facility] [address] [place] [address] [address] [place], [address], 03/28/2016 12:28:13 03/27/19 17 03/28/2016 C-linnette ctive prote in, quant itati ve, serum or plasm a CRP 0.08 mg/dL 0.02-1 .00 Not Available [facility] [address] [place], [place] [address]y [address], [place], [address], 03/28/2016 12:28:14 03/27/19 17 03/27/2016 venip unctu re results Compl ete Not Available [facility] [address] [place], [place] [address]y [address] [place], [address], 03/27/2016 13:15:17 05/19/19 17 05/18/2016 urina lysis , compl ete color YELLOW Not Available [facility] [address] [place] [address] [address], [place], [address], 05/18/2016 19:19:41 05/19/19 17 05/18/2016 urina lysis , compl ete appearance CLEAR clear Not Available [facility] [address] [place], [place] [address]y [address], [place], [address], 05/18/2016 19:19:41 05/19/19 17 05/18/2016 urina lysis , compl ete specific gravity 1.023 Not Available [facility] [address] [place], [place] [address]y [address], [place], [address], 05/18/2016 19:19:41 05/19/19 17 05/18/2016 urina lysis , compl ete pH 6.0 Not Available [facility] [address] [place], [place] [address]y [address], [place], [address], 05/18/2016 19:19:41 05/19/19 17 05/18/2016 urina lysis , compl ete glucose NEGATI VE negati ve Not Available [facility] [address] [place], [place] [address]y [address], [place], [address], 05/18/2016 19:19:41 05/19/19 17 05/18/2016 urina lysis , compl ete bilirubin NEGATI VE negati ve Not Available [facility] [address] [place] [address], [address], 05/18/2016 19:19:41 05/19/19 17 05/18/2016 urina lysis , compl ete ketone NEGATI VE negati ve Not Available [facility] [address] [place] [address], [address], 05/18/2016 19:19:41 05/19/19 17 05/18/2016 urina lysis , compl ete blood NEGATI VE negati ve Not Available [facility] [address] [place] [address], [address], 05/18/2016 19:19:41 05/19/19 17 05/18/2016 urina lysis , compl ete protein NEGATI VE negati ve Not Available [facility] [address] [place] [address], [address], 05/18/2016 19:19:41 05/19/19 17 05/18/2016 urina lysis , compl ete urobilinogen NORMAL Not Available [facility] [address] [place] [address], [address], 05/18/2016 19:19:41 05/19/19 17 05/18/2016 urina lysis , compl ete nitrite NEGATI VE negati ve Not Available [facility] [address] [place] [address], [address], 05/18/2016 19:19:41 05/19/19 17 05/18/2016 urina lysis , compl ete leukocytes NEGATI VE negati ve A cultu re will refle x when the follo wing crite marcy is met: posit percy nitri te small leuko cytes or great er or >6 WBC/h pf 4+ bacte marcy on micro scopi c exam any amoun t of yeast on micro scopi c exam. Not Available [facility] [address] [facility] [address] [place], [address], 05/18/2016 19:19:41 05/19/19 17 05/18/2016 HbA1c (hemo globi n A1c), blood estimated average glucose 125.5 mg/dL 97.0-1 40.0 Not Available [facility] [address] [place] [address] [address] [place], [address], 05/18/2016 20:36:41 05/19/19 17 05/18/2016 HbA1c (hemo [...] OVASC ULAR COMPL ICATI ONS. Not Available [facility] [address] [place] [address] [address] [place], [address], 05/18/2016 20:36:41 05/19/19 17 05/19/2016 CBC white blood cell count 6.3 thous and/u L 3.8-10 .8 normal Not Available [facility] [address] [place] [address] [address] [place], [address], 05/19/2016 01:49:23 05/19/19 17 05/19/2016 CBC red blood cell count 4.70 bere on/uL 3.80-5 .10 normal Not Available [facility] [address] [place] [address] [address] [place], [address], 05/19/2016 01:49:23 05/19/19 17 05/19/2016 CBC hemoglobin 13.6 g/dL 11.7-1 5.5 normal Not Available [facility] [address] [place] [address] [address], [place], [address], 05/19/2016 01:49:23 05/19/1905/19/2016 CBC hematocrit 40.2 % 35.0-4 5.0 normal Not Available [facility] [address] [place], [place] [address]y [address], [place], [address], 05/19/2016 01:49:23 05/19/1905/19/2016 CBC MCV 85.5 fL 80.0-1 00.0 normal Not Available [facility] [address] [place], [place] [address]y [address], [place], [address], 05/19/2016 01:49:23 05/19/1905/19/2016 CBC MCH 28.9 pg 27.0-3 3.0 normal Not Available [facility] [address] [place] [address] [address] [place], [address], 05/19/2016 01:49:23 05/19/1905/19/2016 CBC MCHC 33.8 g/dL 32.0-3 6.0 normal Not Available [facility] [address] [place] [address] [address], [place], [address], 05/19/2016 01:49:23 05/19/1905/19/2016 CBC RDW 13.0 % 11.0-1 5.0 normal Not Available [facility] [address] [place], [place] [address]y [address] [place], [address], 05/19/2016 01:49:23 05/19/1905/19/2016 CBC platelet count 259 thous and/u L 140-40 0 normal Not Available [facility] [address] [place], [place] [address]y [address], [place], [address], 05/19/2016 01:49:23 05/19/1905/19/2016 CBC MPV 11.2 fL 7.5-12 .5 normal Not Available [facility] [address] [place], [place] [address]y [address] [place], [address], 05/19/2016 01:49:23 05/19/19 17 05/19/2016 CBC absolute neutrophils 3686 cells /uL 1500-7 800 normal Not Available [facility] [address] [place] [address] [address] [place], [address], 05/19/2016 01:49:23 05/19/19 17 05/19/2016 CBC absolute lymphocytes 1922 cells /uL 850-39 00 normal Not Available [facility] [address] [place], [place] [address]y [address] [place], [address], 05/19/2016 01:49:23 05/19/19 17 05/19/2016 CBC absolute monocytes 410 cells /uL 200-95 0 normal Not Available [facility] [address] [place] [address] [address] [place], [address], 05/19/2016 01:49:23 05/19/19 17 05/19/2016 CBC absolute eosinophils 233 cells /uL 15-500 normal Not Available [facility] [address] [place], [place] [address]y [address] [place], [address], 05/19/2016 01:49:23 05/19/1905/19/2016 CBC absolute basophils 50 cells /uL 0-200 normal Not Available [facility] [address] [place], [place] [address]y [address] [place], [address], 05/19/2016 01:49:23 05/19/19 17 05/19/2016 CBC neutrophils 58.5 % normal Not Avai lable [facility] [address] [place], [place] [address]y [address], [place], [address], 05/19/2016 01:49:23 05/19/19 17 05/19/2016 CBC lymphocytes 30.5 % normal Not Avai lable [facility] [address] [place], [place] [address]y [address], [place], [address], 05/19/2016 01:49:23 05/19/1905/19/2016 CBC monocytes 6.5 % normal Not Availa ble [facility] [address], [place], [address], 05/19/2016 01:49:23 05/19/1905/19/2016 CBC eosinophils 3.7 % normal Not Avai [facility]able [facility] [address], [place], [address], 05/19/2016 01:49:23 05/19/1905/19/2016 CBC basophils 0.8 % normal Not Availa ble [facility] [facility] [address] [place], [address], 05/19/2016 01:49:23 05/19/1905/21/2016 CMP, serum or plasm a glucose 100 mg/dL 65-99 high Fasti ng refer ence inter inocencio For someo ne witho ut known diabe sergio, a gluco se value betwe en 100 and 125 mg/dL is consi stent with predi abete s and shoul d be confi rmed with a follo w-up test. Not Available [facility] [address] [facility] [address], [place], [address], 05/21/2016 12:58:37 05/19/1905/21/2016 CMP, serum or plasm a urea nitrogen (BUN) 25 mg/dL 7-25 normal Not Available [facility] [address] [facility] [address], [place], [address], 05/21/2016 12:58:37 05/19/19 17 05/21/2016 CMP, serum or plasm a creatinine 0.73 mg/dL 0.50-1 .05 normal For patie nts >49 years of age, the refer ence limit for Creat inine is appro merissat mark 13% highe r for peopl e ident ified as Afric an-Am hong n. Not Available [facility] [address] [facility] [address] [place], [address], 05/21/2016 12:58:37 05/19/19 17 05/21/2016 CMP, serum or plasm a eGFR non-afr. botswanan 91 mL/mi n/1.7 3m2 > or = 60 normal Not Available [facility] [address] [facility] [address] [place], [address], 05/21/2016 12:58:37 05/19/19 17 05/21/2016 CMP, serum or plasm a eGFR 106 mL/mi n/1.7 3m2 > or = 60 normal Not Available [facility] [address] [place], [place] [address]y [address] [place], [address], 05/21/2016 12:58:37 05/19/19 17 05/21/2016 CMP, serum or plasm a BUN/creatini ne ratio NOT APPLIC ABLE (calc ) 6-22 Not Available [facility] [address] [place], [place] [address]y [address] [place], [address], 05/21/2016 12:58:37 05/19/19 17 05/21/2016 CMP, serum or plasm a sodium 138 mmol/ L 135-14 6 normal Not Available [facility] [address] [place], [place] [address]y [address] [place], [address], 05/21/2016 12:58:37 05/19/19 17 05/21/2016 CMP, serum or plasm a potassium 4.3 mmol/ L 3.5-5. 3 normal Not Available [facility] [address] [place], [place] [address]y [address] [place], [address], 05/21/2016 12:58:37 05/19/19 17 05/21/2016 CMP, serum or plasm a chloride 102 mmol/ L 98-110 normal Not Available [facility] [address] [place] [address] [address] [place], [address], 05/21/2016 12:58:37 05/19/19 17 05/21/2016 CMP, serum or plasm a carbon dioxide 25 mmol/ L 20-31 normal Not Available [facility] [address] [place] [address] [place], [address], 05/21/2016 12:58:37 05/19/19 17 05/21/2016 CMP, serum or plasm a calcium 9.3 mg/dL 8.6-10 .4 normal Not Available [facility] [address] [place] [address] [address] [place], [address], 05/21/2016 12:58:37 05/19/19 17 05/21/2016 CMP, serum or plasm a protein, total 6.8 g/dL 6.1-8. 1 normal Not Available [facility] [address] [place] [address] [address] [place], [address], 05/21/2016 12:58:37 05/19/19 17 05/21/2016 CMP, serum or plasm a albumin 4.2 g/dL 3.6-5. 1 normal Not Available [facility] [address] [place] [address] [place], [address], 05/21/2016 12:58:37 05/19/19 17 05/21/2016 CMP, serum or plasm a globulin 2.6 g/dL_ (calc ) 1.9-3. 7 normal Not Available [facility] [address] [place] [address] [place], [address], 05/21/2016 12:58:37 05/19/19 17 05/21/2016 CMP, serum or plasm a albumin/glob ulin ratio 1.6 (calc ) 1.0-2. 5 normal Not Available [facility] [address] [place] [address] [place], [address], 05/21/2016 12:58:37 05/19/19 17 05/21/2016 CMP, serum or plasm a bilirubin, total 0.7 mg/dL 0.2-1. 2 normal Not Available [facility] [address] [place] [address], [address], 05/21/2016 12:58:37 05/19/19 17 05/21/2016 CMP, serum or plasm a alkaline phosphatase 50 U/L 33-130 normal Not Available [facility] [address] [place] [address], [address], 05/21/2016 12:58:37 05/19/1905/21/2016 CMP, serum or plasm a AST 21 U/L 10-35 normal Not Available [facility] [address] [place] [address], [address], 05/21/2016 12:58:37 05/19/1905/21/2016 CMP, serum or plasm a ALT 30 U/L 6-29 high Not Available [facility] [address] [place] [address], [address], 05/21/2016 12:58:37 05/19/1905/21/2016 iron + TIBC + kimberley tin, serum iron, total 66 mcg/d L 45-160 normal Not Available [facility] [address] [place] [address], [address], 05/21/2016 12:58:37 05/19/1905/21/2016 iron + TIBC + kimberley tin, serum iron binding capacity 434 mcg/d L_(ca lc) 250-45 0 normal Not Available [facility] [address] [place] [address], [address], 05/21/2016 12:58:37 05/19/19 17 05/21/2016 iron + TIBC + kimberley tin, serum % saturation 15 %_(ca lc) 11-50 normal Not Available [facility] [facility] [address], [place], [address], 05/21/2016 12:58:37 05/19/19 17 05/21/2016 iron + TIBC + kimberley tin, serum ferritin 18 NG/mL 10-232 normal Not Available [facility] [facility] [address], [place], [address], 05/21/2016 12:58:37 05/19/19 17 05/21/2016 lipid panel , serum cholesterol, total 126 mg/dL 125-20 0 normal Not Available [facility] [address] [facility] [address], [place], [address], 05/21/2016 12:58:38 05/19/19 17 05/21/2016 lipid panel , serum HDL cholesterol 51 mg/dL > or = 46 normal Not Available [facility] [address] [facility] [address], [place], [address], 05/21/2016 12:58:38 05/19/19 17 05/21/2016 lipid panel , serum triglyceride s 56 mg/dL <150 normal Not Available [facility] [address] [facility] [address], [place], [address], 05/21/2016 12:58:38 05/19/19 17 05/21/2016 lipid panel , serum direct LDL 73 mg/dL <130 normal Kirk able range <100 mg/dL for patie nts with CHD or diabe sergio and <70 mg/dL for diabe tic patie nts with known heart disea se. Not Available [facility] [address] [facility] [address], [place], [address], 05/21/2016 12:58:38 05/19/19 17 05/21/2016 lipid panel , serum chol/HDLC ratio 2.5 (calc ) < or = 5.0 normal Not Available [facility] [address] [facility] [address] [place], [address], 05/21/2016 12:58:38 05/19/19 17 05/21/2016 lipid panel , serum non HDL cholesterol 75 mg/dL _(maximo c) normal Targe t for non-H DL troy stero l is 30 mg/dL highe r than LDL troy stero l targe t. Not Available [facility] [address] [facility] [address] [place], [address], 05/21/2016 12:58:38 05/19/19 17 05/21/2016 rf (rheu matoi d facto r), serum rheumatoid factor 5 IU/mL <14 normal Not Available [facility] [address] [facility] [address] [place], [address], 05/21/2016 12:58:39 05/19/19 17 05/21/2016 1,5-a nhydr [...] asing above 180 mg/dL . Not Available [facility] [address] [facility] [address] [facility], [place], [address], 05/21/2016 12:58:39 05/19/19 17 05/18/2016 venip unctu re results Compl ete Not Available [facility] [address], [place], [address], 05/18/2016 10:30:06 06/20/19 17 06/20/2016 CBC WBC 7.7 x10^3 /uL 4.4-11 .0 Not Available [facility] [address] [place], [place] [address]y [address], [place], [address], 06/20/2016 09:58:20 06/20/19 17 06/20/2016 CBC RBC 4.74 x10^6 /uL 4.50-5 .10 Not Available [facility] [address], [place], [address], 06/20/2016 09:58:20 06/20/1906/20/2016 CBC HGB 13.5 g/dL 12.3-1 5.3 Not Available [facility] [address] [place], [place] [address] [address], [place], [address], 06/20/2016 09:58:20 06/20/19 17 06/20/2016 CBC HCT 41.8 % 35.9-4 4.6 Not Available [facility] [address] [place], [place] [address]y [address], [place], [address], 06/20/2016 09:58:20 06/20/19 17 06/20/2016 CBC MCV 88.2 fL 80.0-9 6.0 Not Available [facility] [address] [place], [place] [address]y [address], [place], [address], 06/20/2016 09:58:20 06/20/19 17 06/20/2016 CBC MCH 28.5 pg 27.5-3 3.2 Not Available [facility] [address] [place], [place] [address]y [address], [place], [address], 06/20/2016 09:58:20 06/20/19 17 06/20/2016 CBC MCHC 32.4 g/dL 33.4-3 5.5 low Not Available [facility], [place], [address], 06/20/2016 09:58:20 06/20/1906/20/2016 CBC RDW 13.6 % 11.6-1 5.0 Not Available [facility], [place], [address], 06/20/2016 09:58:20 06/20/1906/20/2016 CBC plt 271 x10^3 /uL 150-45 0 Not Available [facility], [place], [address], 06/20/2016 09:58:20 06/20/19 17 06/20/2016 CBC MPV 9.6 fL 7.4-10 .4 Not Available [facility] [address] [place] [address] [address], [place], [address], 06/20/2016 09:58:20 06/20/1906/20/2016 CBC neut # 4.7 x10^3 /uL 1.5-7. 2 Not Available [facility] [address] [place] [address] [address], [place], [address], 06/20/2016 09:58:20 06/20/1906/20/2016 CBC lymph# 2.1 x10^3 /uL 0.7-4. 9 Not Available [facility] [address] [place] [address] [address], [place], [address], 06/20/2016 09:58:20 06/20/1906/20/2016 CBC mono# 0.5 x10^3 /uL 0.1-0. 9 Not Available [facility], [place], [address], 06/20/2016 09:58:20 06/20/1906/20/2016 CBC eos # 0.3 x10^3 /uL 0.0-0. 4 Not Available [facility] [address], [place], [address], 06/20/2016 09:58:20 06/20/19 17 06/20/2016 CBC baso # 0.1 x10^3 /uL 0.0-0. 2 Not Available [facility] [address], [place], [address], 06/20/2016 09:58:20 06/20/1906/20/2016 CBC neut % 61.0 % 42.2-7 5.2 Not Available [facility] [address], [place], [address], 06/20/2016 09:58:20 06/20/1906/20/2016 CBC mono% 6.0 % 1.7-9. 3 Not Available [facility] [address] [facility] [address], [place], [address], 06/20/2016 09:58:20 06/20/1906/20/2016 CBC eos% 4.5 % 1.0-6. 0 Not Available [facility] [address], [place], [address], 06/20/2016 09:58:20 06/20/1906/20/2016 CBC baso% 0.7 % 0.0-4. 0 Not Available [facility] [address], [place], [address], 06/20/2016 09:58:20 06/20/1906/20/2016 CBC lymph % 27.8 % 20.5-5 1.1 Not Available [facility] [address], [place], [address], 06/20/2016 09:58:20 06/20/1906/20/2016 CMP, serum or plasm a glucose 141 mg/dL 65-99 high Fasti ng refer ence inter inocencio For someo ne witho ut known diabe sergio, a gluco se value >125 mg/dL indic ates that they may have diabe sergio and this shoul d be confi rmed with a follo w-up test. Not Available [facility] [address], [place], [address], 06/20/2016 12:34:33 06/20/1906/20/2016 CMP, serum or plasm a urea nitrogen (BUN) 19 mg/dL 7-25 normal Not Available [facility] [address] [place], [address], 06/20/2016 12:34:33 06/20/1906/20/2016 CMP, serum or plasm a creatinine 0.91 mg/dL 0.50-1 .05 normal For patie nts >49 years of age, the refer ence limit for Creat inine is appro ximat mark 13% highe r for peopl e ident ified as Afric an-Am hong n. Not Available [facility] [address] [place], [address], 06/20/2016 12:34:33 06/20/1906/20/2016 CMP, serum or plasm a eGFR non-afr. botswanan 70 mL/mi n/1.7 3m2 > or = 60 normal Not Available [facility] [address], [place], [address], 06/20/2016 12:34:33 06/20/1906/20/2016 CMP, serum or plasm a eGFR 81 mL/mi n/1.7 3m2 > or = 60 normal Not Available [facility] [address] [place], [address], 06/20/2016 12:34:33 06/20/19 17 06/20/2016 CMP, serum or plasm a BUN/creatini ne ratio NOT APPLIC ABLE (calc ) 6-22 Not Available [facility] [address] [place], [place] [address]y [address] [place], [address], 06/20/2016 12:34:33 06/20/19 17 06/20/2016 CMP, serum or plasm a sodium 139 mmol/ L 135-14 6 normal Not Available [facility] [address] [place], [place] [address] [address] [place], [address], 06/20/2016 12:34:33 06/20/1906/20/2016 CMP, serum or plasm a potassium 4.4 mmol/ L 3.5-5. 3 normal Not Available [facility] [address] [place] [address] [address] [place], [address], 06/20/2016 12:34:33 06/20/1906/20/2016 CMP, serum or plasm a chloride 100 mmol/ L 98-110 normal Not Available [facility] [address] [place], [place] [address] [address] [place], [address], 06/20/2016 12:34:33 06/20/1906/20/2016 CMP, serum or plasm a carbon dioxide 33 mmol/ L 20-31 high Not Available [facility] [address] [place], [place] [address] [address] [place], [address], 06/20/2016 12:34:33 06/20/1906/20/2016 CMP, serum or plasm a calcium 10.0 mg/dL 8.6-10 .4 normal Not Available [facility] [address] [place], [place] [address] [address] [place], [address], 06/20/2016 12:34:33 06/20/1906/20/2016 CMP, serum or plasm a protein, total 6.8 g/dL 6.1-8. 1 normal Not Available [facility] [address] [place] [address] [address] [place], [address], 06/20/2016 12:34:33 06/20/19 17 06/20/2016 CMP, serum or plasm a albumin 4.2 g/dL 3.6-5. 1 normal Not Available [facility] [address] [place] [address] [address] [place], [address], 06/20/2016 12:34:33 06/20/19 17 06/20/2016 CMP, serum or plasm a globulin 2.6 g/dL_ (calc ) 1.9-3. 7 normal Not Available [facility] [address] [place] [address] [address] [place], [address], 06/20/2016 12:34:33 06/20/19 17 06/20/2016 CMP, serum or plasm a albumin/glob ulin ratio 1.6 (calc ) 1.0-2. 5 normal Not Available [facility] [address] [place] [address] [address] [place], [address], 06/20/2016 12:34:33 06/20/19 17 06/20/2016 CMP, serum or plasm a bilirubin, total 0.5 mg/dL 0.2-1. 2 normal Not Available [facility] [address] [place] [address] [address] [place], [address], 06/20/2016 12:34:33 06/20/19 17 06/20/2016 CMP, serum or plasm a alkaline phosphatase 61 U/L 33-130 normal Not Available [facility] [address] [place] [address] [address] [place], [address], 06/20/2016 12:34:33 06/20/19 17 06/20/2016 CMP, serum or plasm a AST 25 U/L 10-35 normal Not Available [facility] [address] [place], [address], 06/20/2016 12:34:33 06/20/19 17 06/20/2016 CMP, serum or plasm a ALT 35 U/L 6-29 high Not Available [facility] [address] [facility] [address] [place], [address], 06/20/2016 12:34:33 06/20/19 17 06/20/2016 C-linnette ctive prote in, quant itati ve, serum or plasm a C-reactive protein <0.10 mg/dL <0.80 normal Pleas e be advis ed that patie nts takin g Carbo xypen icill ins may exhib it false ly decre ased C-Bartow ctive Prote in level s due to an roosevelt tical inter feren ce in this assay . Not Available [facility] [address] [facility] [address] [place], [address], 06/20/2016 12:34:33 06/20/19 17 06/20/2016 eryth rocyt e sedim entat ion rate by august almaraz metho d sed rate by modified lyndseyren 2 mm/h < or = 30 normal Not Available [facility] [address] [facility] [address] [place], [address], 06/20/2016 12:34:34 06/20/19 17 06/19/2016 venip unctu re results Compl ete Not Available [facility] [address] [facility] [address] [place], [address], 06/19/2016 12:21:17 04/10/19 17 04/10/2016 MAMMO , scree kevin, digit al, bilat eral No observ ation record ed. Formerly [facility] (Radiology) [address], [place], [address], 06/26/2016 14:00:06 04/10/19 17 04/10/2016 bone densi ty study No observ ation record ed. [address] [facility] ([facility]iology) [address], [place], [address], 06/26/2016 14:00:06 04/10/19 17 04/10/2016 bone densi ty study No observ ation record ed. [place] [address] [address], [place], [address], 06/26/2016 14:00:06 04/18/19 17 04/10/2016 dual energ y x-ray absor ptiom etry No observ ation record ed. [address] Imaging ([facility]) [address] [facility] [address], [place], [address], 06/26/2016 14:00:06 06/28/19 17 elect rocar diogr am No observ ation record ed. flemoine Not Available 2016 18:03:08 Result Notes None recorded. Problems Name Problem SNOMED Code Status Onset Date Resolution Date Notes Provider Name and Address Organization Details Recorded Time Knee pain Completed 05/03/2014 Melodie willard [facility], [facility] 6 15:12:08 Multiple complicatio ns of type II diabetes mellitus Active Melodie willard [facility], [facility] 6 15:12:08 Sciatica 68186701 Completed 05/03/2014 Melodie willard [facility], [facility] 6 15:12:08 Essential hypertensio n 20708729 Completed 06/27/2016 Rakesh [place] Jr, MD [address] [address], [place], [address] [place] [address] Physician Group, [facility] 7 14:59:25 Obesity 818933754 Active Melodie willard [place] - [facility], [facility] 6 15:12:08 Sinusitis 90245284 Completed 05/03/2014 Melodie willard [place] [facility], [facility] 6 15:12:08 Tendinitis of finger 391618099 Completed 05/03/2014 [facility] 15:12[facility]08 Cellulitis of lower limb 755792934 Completed 05/03/2014 [facility] 6 15:12:08 Herpes zoster 7379270 Completed 05/03/2014 [facility] 6 15:12:08 Generalized arthritis 289930839 [facility] 6 15:12:08 Psoriasis with arthropathy Active Rupesh hunter [employer] [address], [place], [address] [place] [address] 6 15:41:47 Dermatophyt osis 13299698 Completed 05/03/2014 [facility] 6 15:12:08 Depressive disorder 60386243 [facility] 6 15:12:08 Hyperlipide murphy 23145655 [facility] 6 15:12:08 Bursitis of shoulder 970286024 Completed 06/27/2016 Rakesh [place] Jr, MD [address], [place], [address] [place] [address] 7 18:11:38 Disorder of nervous system due to type 2 diabetes mellitus 901492475 [facility] 15:12:08 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 6 15:12:08 Menopausal symptom 25171230 [facility] 6 15:12:08 Recurrent major depressive episodes 318107901 Active Melodie willard, [facility], [facility] 6 15:12:08 Manic bipolar I disorder 31056612 Active Mleodie willard, [facility], [facility] 6 15:12:08 Anemia caused by medication 630588820 Active Melodie willard, [facility], [facility] 6 15:12:08 Anemia 936408475 Active Melodie willard, [facility], [facility] 6 15:12:08 Chronic pain 48718221 Active Melodie willard, [facility], [facility] 6 15:12:08 Herniation of rectum into vagina 023838434 [facility] 6 15:12:08 Otalgia 94533712 [facility] 6 15:12:08 Bipolar disorder 15704283 [facility] 6 15:12:08 Sciatica 05726504 [facility] 6 15:12:08 Peripheral neuropathic pain 275591930 [facility] 6 15:12:08 Iron deficiency anemia 32706596 Active 2016 Rakesh [place] Jr, MD [address], [place], [address], [facility], [facility] 7 17:04:22 Urinary incontinenc e 679399434 Active 2016 Rakesh [place] Jr, MD [address], [place], [address], [facility], [facility] 7 17:04:24 Hypertensiv e disorder 72917096 Active 2016 MD Wale Cobb Jr[address], [place], [address], [facility], [facility] 7 01:33:49 Gastro-esop hageal reflux disease with esophagitis 700782233 Active 2016 Rakesh [place] Jr, MD [address] [facility] [address], [place], [address] [place] [address] - [facility], [facility] 7 17:08:23 Problem Notes Documentation Provider Name and Address Organization Details Recorded Time Scrap Sorter Consult Note : [facility] [address] [facility], [facility] [address]H'DONNELL, KELLY Ann (id #[id number], : 1960) [facility] [address] [facility] [address] [place] [address] , Date: 04/02/2016RE: Kelly Juan, : 1960, PT ID #[id number] Islas MD, I would like to thank [...] and low back. 04/02/2016 - 03:40PM - [facility] History of Present IllnessRheumatology GeneralReported bypatient.Reason for [...] week by subcutaneous route for 30 days. Qty: 4 0.98 mL syringe(s) Refills: 1 [facility]) CBC W/ AUTODIFF, COMPLETE BLOOD COUNT -To be performed on or around 06/25/2016 CMP, COMPREHENSIVE METABOLIC PANEL -To be performed on or around 06/25/2016 SED RATE, WESTERGREN -To be performed on or around 06/25/2016 CRP, C-REACTIVE PROTEIN -To be performed on or around 06/25/2016 2. Long-term drug therapy- Patient is tolerating current medications well, not reporting any adverse effects from medications. Next labs with follow-up appointment.Z79.899: Other correction (current) drug therapy DiscussionPatient InstructionsPatient Instructions call us if condition worsens Discussion NotesPatient aware of issues with biologics such as stopping medication/calling us if any infections arise, also must stop biologic prior to surgery ( should call us if surgery planned), aware of cancers such as lymphoma, skin cancers, etc.. Return to Office to see Rakesh [place] Jr, MD for BLOCK at [facility] [address] on or around 05/26/2016 Rakesh [place] Jr, MD for WELCOME TO MEDICARE [address] on 05/30/2016 at 10:15 AM JOSETTE Lowe for ESTABLISHED OV 20 at [facility] on 07/10/2016 at 02:00 PM JOSETTE Lowe [address], [place], [address], [facility] [place] [facility], [facility] 06/26/2016 14:00:07 Procedures Surgical History Date Name Laterality Status Provider Name and Address Organization Details Recorded Time 06/28/19 17 Quality Pain Screening No Pain completed Rakesh [place] Jr, MD [address], [place], [address], [facility] [place] [facility], [facility] 06/27/2016 14:51:17 06/28/19 17 Quality Functional Assessment completed Rakesh Calrk Jr, MD [address], [place], [address], [facility], [facility] 06/27/2016 14:51:17 06/28/19 17 Quality Medication Reviewed and Updated completed Rakesh [place] Jr, MD [address], [place], [address], [facility], [facility] 06/27/2016 14:51:17 06/28/19 17 Quality (DM or HTN) BP Diastolic < 80 completed Rakesh [place] Jr, MD [address], [place], [address], [facility], [facility] 06/27/2016 14:51:17 06/28/19 17 Medicare AWV Questionnaire completed Rakesh [place] Jr, MD [address], [place], [address], [facility], [facility] 06/27/2016 14:51:16 06/28/19 17 Quality Tobacco Non- User completed Rakesh [place] Jr, MD [address], [place], [address], [facility], [facility] 06/27/2016 14:51:17 06/28/19 17 Quality (DM or HTN ) BP Systolic < 130 completed Rakesh [place] Jr, MD [address], [place], [address], [facility], [facility] 06/27/2016 14:51:17 06/28/19 17 Quality Fall Risk Assessment Low Risk completed Rakesh [place] Jr, MD [address], [place], [address], [facility], [facility] 06/27/2016 14:51:17 06/28/19 17 Quality BMI with follow up completed Rakesh [place] Jr, MD [address], [place], [address], [facility], [facility] 06/27/2016 14:51:17 06/28/19 17 Quality Advanced Care Planning completed Rakesh [place] Jr, MD [address], [place], [address], [facility], [facility] 06/27/2016 14:51:17 06/28/19 17 Quality Incontinence Screening completed Rakesh [place] Jr, MD [address], [place], [address], [facility], [facility] 06/27/2016 14:51:17 06/28/19 17 Diabetic Foot Exam completed Rakesh [place] Jr, MD [address], [place], [address], [facility], [facility] 06/27/2016 18:35:46 06/27/19 17 Quality Pain Screening No Pain cancelled Lucretia Madera [facility], [facility] 06/26/2016 12:03:03 06/27/19 17 Quality Functional Assessment cancelled Remedios Mendez [facility], [facility] 06/26/2016 11:57:35 06/27/19 17 Quality Medication Reviewed and Updated cancelled Remedios Mendez [facility], [facility] 06/26/2016 11:57:34 06/27/19 17 Quality (DM or HTN) BP Diastolic < 80 cancelled Remedios Mendez [facility], [facility] 06/26/2016 11:57:35 06/27/19 17 Medicare AWV Questionnaire cancelled Lucretia Madera [facility], [facility] 06/26/2016 12:01:38 06/27/19 17 Quality Tobacco Non- User cancelled Remediosnorberto Mendez [facility], [facility] 06/26/2016 11:57:34 06/27/19 17 Quality (DM or HTN ) BP Systolic < 130 cancelled Remedios Mendez [facility], [facility] 06/26/2016 11:57:35 06/27/19 17 Quality Fall Risk Assessment Low Risk cancelled Remedios Mendez [facility], [facility] 06/26/2016 11:57:35 06/27/19 17 Quality BMI with follow up cancelled Remedios Mendez [facility], [facility] 06/26/2016 11:57:35 06/27/19 17 Quality Advanced Care Planning cancelled Remediosnorberto Mendez [facility], [facility] 06/26/2016 11:57:35 06/27/19 17 Quality Incontinence Screening cancelled Remediosnorberto Mendez [facility], [facility] 06/26/2016 11:57:35 05/13/19 17 Vrt fracture assmt via dxa completed Lucretia Madera [facility], [facility] 06/26/2016 12:02:16 05/13/19 17 Bone mineral single photon completed Remedios Mendez [facility], [facility] 06/27/2016 16:04:30 05/13/19 17 Mammogram Screening completed Remediosnorberto Mendez [facility], [facility] 06/27/2016 16:04:51 05/13/19 17 Other [facility], [facility] 06/27/2016 16:05:33 12/03/19 15 Diabetic Foot Exam completed Rakesh [place] Jr, MD [address], [place], [address], [facility], [facility] 12/05/2014 20:40:00 05/07/19 14 TCM Initial completed Lorena Bazzi [facility], [facility] 05/06/2013 10:27:34 04/02/19 14 Aspiration Major Joint/Bursa completed Rakesh [place] Jr, MD [address], [place], [address], [facility], [facility] 04/05/2013 16:22:28 03/10/19 14 Aspiration Major Joint/Bursa completed Rakesh [place] Jr, MD [address], [place], [address], [facility], [facility] 03/10/2013 17:45:44 03/03/19 14 Aspiration Major Joint/Bursa completed Rakesh [place] Jr, MD [address], [place], [address], [facility], [facility] 03/03/2013 17:51:17 02/16/19 14 Aspiration Major Joint/Bursa completed Rakesh [place] Jr, MD [address], [place], [address], [facility], [facility] 02/16/2013 17:36:32 02/11/19 11 Colonoscopy completed Lucretia Madera [facility], [facility] 06/26/2016 12:02:02 02/11/19 07 Colonoscopy completed Gill Marie [facility], [facility] 02/16/2013 14:55:02 02/11/19 03 [facility]ia [facility] 02/16/2013 15:22:58 02/11/18 89 Cholecystectomy completed Gill Marie [facility], [facility] 02/16/2013 15:22:58 02/11/18 89 Hysterectomy completed Gill Marie [facility], [facility] 02/16/2013 15:22:58 Tonsillectomy completed Gill Marie [facility] 02/16/2013 15:23:18 COLONOSCOPY (SURG) completed Faraz Overton [facility] 07/23/2013 19:11:11 Imaging Results None recorded. Procedure Notes None recorded. Medical Equipment None Reported. Allergies Allergen ID Allergen Name Allergen Category Reaction Reaction Severity Criticality Documentation Date Start Date Code Code System Note Provider Name and Address Organization Details Recorded Time 747597 Lorabid medicatio n anaphylax is severe Not available 02/16/2013 20535 4 RxNorm aller gy previ ously marke d as life -thre ateni ng Not Available [facility] 4 05:46:19 691508 chlorthal idone medicatio n anaphylax is severe Not available 02/16/2013 2409 RxNorm aller gy previ ously marke d as life -thre ateni ng Not Available [facility] 4 05:46:19 225791 Bactrim medicatio n anaphylax is severe Not available 02/16/2013 57240 9 RxNorm Gill Marie [facility] 4 15:02:18 581479 doxycycli ne Not available anaphylax is moderate Not available 02/16/2013 3640 RxNorm Gill Marie [facility] 4 15:02:18 844215 Norvasc medicatio n anaphylax is moderate Not available 02/16/2013 55309 RxNorm Gill Marie [facility] 4 15:02:18 004822 erythromy sai medicatio n anaphylax is moderate Not available 02/16/2013 4053 RxNorm Gill Marie [facility] 4 15:02:18 [id number] prednison e medicatio n other Not available Not available 12/02/2014 8640 RxNorm Monica Cheatham [facility] 5 17:57:49 Medications Name Sig Start Date [...] Available Not Available Not Available Fluarix Quad 2819-1511 (PF) 60 mcg (15 mcg x 4)/0.5 mL IM syringe inject 0.5 millilit er intramus cularly active Not Available Not Available No t Available Vitals Date Recorded Body height Body weight Body mass index (BMI) Body temperature Heart rate Oxygen saturation Oxygen saturation in Arterial blood by Pulse oximetry Systolic And Diastolic Provider Name and Address Organization Details Last Updated DateTime 7 162.56 cm 833510. 06 g 39.1 kg/m2 98.6 [degF] 112 /min 96 % 96 % 108/78 mm[Hg] Lucretia Madera [facility], [facility] 7 17:25:04 Date Recorded Body height Body weight Body mass index (BMI) Heart rate Oxygen saturation Oxygen saturation in Arterial blood by Pulse oximetry Systolic And Diastolic Provider Name and Address Organization Details Last Updated DateTime 7 162.56 cm 299630. 06 g 39.1 kg/m2 88 /min 98 % 98 % 144/96 mm[Hg] Melodie Carey [facility], [facility] 7 15:57:00 Date Recorded Body height Body weight Body mass index (BMI) Oxygen saturation Oxygen saturation in Arterial blood by Pulse oximetry Heart rate Systolic And Diastolic Provider Name and Address Organization Details Last Updated DateTime 7 162.56 cm 479495. 13 g 42.1 kg/m2 100 % 100 % 91 /min 156/98 mm[Hg] Melodie Carey [facility], [facility] 7 13:46:40 Date Recorded Body height Provider Name an d Address Organization Details Last Updated DateTime 06/26/2016 162.56 cm Elis Marcello [facility], [facility] 06/26/2016 11:51:02 Date Recorded Respiratory rate Provider Name a nd Address Organization Details Last Updated DateTime 06/26/2016 18 /min Remedios Mendez [facility], [facility] 06/26/2016 11:52:36 Date Recorded Body height Respiratory rate Body weight Body mass index (BMI) Body temperature Heart rate Oxygen saturation Oxygen saturation in Arterial blood by Pulse oximetry Systolic And Diastolic Provider Name and Address Organization Details Last Updated DateTime 7 162.56 cm 18 /min 249946. 73 g 41.1 kg/m2 99.2 [degF] 100 /min 98 % 98 % 148/99 mm[Hg] Remedios Mendez [facility], [facility] 7 16:15:42 Date Recorded Body height Body weight Body mass index (BMI) Heart rate Systolic And Diastolic Provider Name and Address Organization Details Last Updated DateTime 11/28/2015 162.56 cm 895563.4 2984 g 39.8 kg/m2 84 /min 122/78 mm[Hg] Melodie Carey [facility], [facility] 11/28/2015 15:15:04 Social History Question Answer Notes LastModified by Organizat ion Details LastModified Time Tobacco Smoking Status Former Smoker Gill Marie montse [place] - [facility], [facility] 02/16/2013 15:16:13 Do You Have An Advance Directive? No PT WISHES TO BE RESUSCITATED BUT DOESN'T WANT HER LIFE PROLONGED IF THERE IS NO REASONABLE CHANCE OF FUNCTIONAL RECOVERY Information not available 07/15/2013 How Much Tobacco Do You Chew? None [email or web address] Information not available 04/02/2016 Which Illicit Or [...] Not available 15:35:45 Sister Polyp of colon Not available 15:35:45 Sister Depressive disorder Not [...] 02/11/2009 completed Rakesh Clark Jr, MD [address], [place], [address], [facility], [facility] 05/18/2014 19:11:52 influenza, unspecified formulation 02/12/2012 completed MD Job Cobb Jr [address], [place], [address], [facility], [facility] 05/18/2014 19:11:52 tetanus toxoid, unspecified formulation 02/11/2010 completed MD Job Cobb Jr [address], [place], [address], [facility], [facility] 05/18/2014 19:11:52 influenza, unspecified formulation 02/12/2012 completed MD Job Cobb Jr [address], [place], [address], [facility], [facility] 12/16/2013 09:20:00 pneumococcal, unspecified formulation 02/11/2009 completed MD Job Cobb Jr [address], [place], [address], [facility], [facility] 12/16/2013 09:20:00 tetanus toxoid, unspecified formulation 02/11/2010 completed MD Job Cobb Jr [address], [place], [address], [facility], [facility] 12/16/2013 09:20:00 Past Encounters Encounter ID Performer Location Encounter Start Date Encounter Closed Date Diagnosis/Indication Diagnosis SNOMED-CT Code Diagnosis ICD10 Code Diagnosis Note [id number] Rakesh Clark Jr, MD [address] [address] 02/16/2013 15:09:24 02/16/2013 17:41:02 Knee pain 24436300 Tenosynovi tis of the knee. Kenalog injection tolerated well. 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 Check A1c. She is unwilling to check sugars so will have to go by A1C and modify treatment accordingl y. Anticipate will have to add something such as a GLP1 or DPP4 inhibitor. GLP1 would probably be most beneficial because of her obesity Sciatica 41581309 Exacer jennifer d by knee pain. Treat knee and see how her back improves. Weight loss would also help Essential hypertension 23338552 Stable. Continue meds. 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 Discussed [...] concerning medical plan of care. Essential hypertension 88506115 Blood pressure under good control. Continue medication s. Encourage patient to continue to monitor blood pressure regularly. Knee pain 60608487 Stabl e. Controlled . Continue current therapy/me dical plan of care. Sciatica 41408970 Stable . Controlled . Continue current therapy/me dical plan of care. Obesity 603605612 Discus sed the diagnosis as well as the risks and benefits of therapy/ev aluation. Patient understand s the risks and benefits of declining or accepting treatment. Please see patient discharge instructio ns for any additional informatio n concerning medical plan of care. Make it some benefit from the Bydureon with her weight loss. [id number] Rakesh Clark Jr, MD [address] [place], [place] [address] 03/03/2013 16:38:47 03/03/2013 17:48:26 Knee pain 15728585 Tolerated injection well. Improvemen t with initial Cortisone injection continue with Hyalgan. Discussed the diagnosis as well as the risks and benefits of therapy/ev aluation. Patient understand s the risks and benefits of declining or accepting treatment. Please see patient discharge instructio ns for any additional informatio n concerning medical plan of care. [id number] Rakesh Clark Jr, MD [address] [place] [address] 03/10/2013 16:58:01 03/11/2013 11:56:47 Knee pain 36259918 Stable. Controlled . Continue current therapy/me dical plan of care.Discu ssed the diagnosis as well as the risks and benefits of therapy/ev aluation. Patient understand s the risks and benefits of declining or accepting treatment. Please see patient discharge instructio ns for any additional informatio n concerning medical plan of care. Essential hypertension 49792227 Blood pressure under good control. Continue medication s. Encourage patient to continue to monitor blood pressure regularly. [facility]us[facility] 49889423 [facility]. Discussed the diagnosis as well as different treatment option, and the risks and benefits of therapy/ev aluation. Reviewed goals of treatment with patient. Patient understand s the risks and benefits of declining or accepting treatment. Please see patient discharge instructio ns for any additional informatio n concerning medical plan of care. Sinus headache 6395119 D iscussed the diagnosis as well as the risks and benefits of therapy/ev aluation. Patient understand s the risks and benefits of declining or accepting treatment. Please see patient discharge instructio ns for any additional informatio n concerning medical plan of care. [id number] Rakesh Clark Jr, MD [address] [place] [address] 03/17/2013 17:00:19 03/17/2013 18:36:28 Knee pain 85057776 Swelling appears to be from precius Hyalgan injection. Postpone 1 week. No evidence of infection. Feel if I gave her this last dose today it would result in significan t joint infusion [id number] Rakesh Clark Jr, MD [address] [place], [place] [address] 04/02/2013 17:30:36 04/02/2013 19:11:46 Knee pain 37845702 Doing well tolerating injections . Improved Tendinitis of finger 993108567 Medrol dose pack. Rec she use a wrist brace bilaterall y. 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 Leg wrapped with pressure bandage. capillary refill good. tolerated. Continue antibiotic s. 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 Instructed her that she has to wear diabetic shoes. Herpes zoster 7914653 St able. [id number] Rakesh Clark Jr, MD [address] [place], [place] [address] 05/08/2013 08:28:37 05/08/2013 10:09:56 Cellulitis of lower limb 148110970 Improved continue antibiotic s andkeep leg elevated [id number] Daquan Doss MD [facility] [address] [place] [address] 05/14/2013 15:11:57 05/14/2013 16:17:29 Pain of hip region 35750861 [id number] MD EBER Cobb Jr [address] [place], [place] [address], [place] [address] 06/10/2013 11:48:39 06/10/2013 14:43:56 Psoriasis 3448090 Discussed the diagnosis as well as the risks and benefits of therapy/ev aluation. Patient understand s the risks and benefits of declining or accepting treatment. Please see patient discharge instructio ns for any additional informatio n concerning medical plan of care. Generalized arthritis 282427932 Discussed the diagnosis as well as the risks and benefits of therapy/ev aluation. Patient understand s the risks and benefits of declining or accepting treatment. Please see patient discharge instructio ns for any additional informatio n concerning medical plan of care. Psoriasis with arthropathy 75981917 Current medical problem uncontrol ed. Discussed the [...] give some Clonazepam to help with this. [id number] Ezra Hernandez DO [address] [address] 06/11/2013 13:30:44 06/11/2013 15:34:44 Screening for malignant neoplasm of colon 804372032 has h/o polyps. Doing well. No severe heart nor lung disease. Not on blood thinners. Will proceed with colonoscop y. [id number] Rakesh Clark Jr, MD [address] [place] [address] 07/15/2013 14:12:02 07/15/2013 16:45:49 Adult health examination 632322042 Psoriasis with arthropathy 32773836 Will start her on steroids. Will also go ahead and give her a Kenalog shot at this time. Will add Toradol for her joint discomfort . 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 She has needs to see the rheumatolo Carol colby she has the anxiety with taking the steroids will add Clonazepam . 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 Encourage the patient to check her blood sugars Essential hypertension 90278538 We will change her from Diovan to Losartan for insurance coverage. 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 Discussed [...] medical plan of care. Psoriasis with arthropathy 24300700 Discussed the diagnosis as well as the risks and benefits of therapy/ev aluation. Patient understand s the risks and benefits of declining or accepting treatment. Please see patient discharge instructio ns for any additional informatio n concerning medical plan of care. Essential hypertension 33325125 Blood pressure under good control. Continue medication s. Encourage patient to continue to monitor blood pressure regularly. Dermatophytosis 04457881 Stable. Controlled . Continue current therapy/me dical plan of care. Depressive disorder 10872693 Stable. Controlled . Continue current therapy/me dical plan of care. Sciatica 87458777 Stable . Controlled . Continue current therapy/me dical plan of care. Hyperlipidemia 83367827 Discussed lipid profile. Discussed risks and benefits of therapy. Lipid not at goal based on current overall risk factors. Discussed risks and benefits of therapy. See patient instructio ns for medical plan of care. 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 Discussed [...] medical plan of care. Psoriasis with arthropathy 40213348 Stable. Controlled . Continue current therapy/me dical plan of care. Essential hypertension 61994880 Blood pressure under good control. Continue medication s. Encourage patient to continue to monitor blood pressure regularly. Depressive disorder 10091535 Discussed the diagnosis as well as the risks and benefits of therapy/ev aluation. Patient understand s the risks and benefits of declining or accepting treatment. Please see patient discharge instructio ns for any additional informatio n concerning medical plan of care. Sciatica 84338261 Stable . Controlled . Continue current therapy/me dical plan of care. Hyperlipidemia 53104719 Stable. Controlled . Continue current therapy/me dical plan of care. [id number] Thierry Poole MD [place] [address] 10/06/2013 13:44:53 10/07/2013 16:41:23 Muscle pain 47951552 [id number] Thierry Poole MD [place] [address] 10/08/2013 09:20:46 10/08/2013 10:37:32 Hematoma 350711787 [id number] Rakesh Clark Jr, MD [place] [address] 12/15/2013 17:18:09 12/15/2013 18:13:37 Sciatica 12537575 Stable. Controlled . Continue current therapy/me dical plan of care. 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 Hemoglobin A1c stable. Reviewed current glycemic goals. Continue current treatment. Psoriasis with arthropathy 95997379 improving. Stable. Controlled . Continue current therapy/me dical plan of care. Essential hypertension 36876863 Blood pressure under good control. Continue medication s. Encourage patient to continue to monitor blood pressure regularly. Depressive disorder 00642530 Stable. Controlled . Continue current therapy/me dical plan of care. Hyperlipidemia 89972484 Discussed lipid profile. Discussed risks and benefits of therapy. Lipid at goal based on current overall risk factors. Continue current therapy. Screening mammography 53279558 [id number] Rakesh Clark Jr, MD [address] [address] 01/19/2014 17:30:38 01/19/2014 19:11:48 Bursitis of shoulder 591937119 Discussed the diagnosis as well as the risks and benefits of therapy/ev aluation. Patient understand s the risks and benefits of declining or accepting treatment. Please see patient discharge instructio ns for any additional informatio n concerning medical plan of care. Acute sinusitis 46393939 Discussed the diagnosis as well as the risks and benefits of therapy/ev aluation. Patient understand s the risks and benefits of declining or accepting treatment. Please see patient discharge instructio ns for any additional informatio n concerning medical plan of care. 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 Hemoglobin A1c stable. Reviewed current glycemic goals. Continue current treatment. Essential hypertension 53833945 Blood pressure not controlled . Low Salt diet encouraged consider adjustment in medical therapy. Encourage patient to monitor blood pressure regularly. Discussed risks and benefits of therapy. See patient instructio ns for medical plan of care. Depressive disorder 30408902 Stable. Controlled . Continue current therapy/me dical plan of care. Hyperlipidemia 95666260 Discussed lipid profile. Discussed risks and benefits of therapy. Lipid at goal based on current overall risk factors. Continue current therapy. Obesity 638394285 Discus sed the diagnosis as well as the risks and benefits of therapy/ev aluation. Patient understand s the risks and benefits of declining or accepting treatment. Please see patient discharge instructio ns for any additional informatio n concerning medical plan of care. Psoriasis with arthropathy 49929006 Stable. Controlled . Continue current therapy/me dical plan of care. Screening for malignant neoplasm of colon 796307608 Screening mammography 19731726 Disorder o f nervous system due to type 2 diabetes mellitus 451503294 chronic, controlled . Continue same, recheck labs as per schedule. Polyneurop athy due to diabetes mellitus 08936156 chronic, controlled . Continue same regimen. Recheck as scheduled Menopausal symptom 12723228 Recurrent major depressive episodes 492806278 chronic, improving. Continue medication regimen as noted and follow up as scheduled. 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 Controlled . Continue current therapy/me dical plan of care. Psoriasis with arthropathy 41802977 Stable. Controlled . Continue current therapy/me dical plan of care. Manic bipo lar I disorder 33838775 Current medical problem uncontroll ed. Discussed the diagnosis as well as different treatment option, and the risks and benefits of therapy/ev aluation. Reviewed goals of treatment with patient. Patient understand s the risks and benefits of declining or accepting treatment. Please see patient discharge instructio ns for any additional informatio n concerning medical plan of care. [id number] aRkesh Clark Jr, MD [address] [address] 12/02/2014 16:48:52 12/07/2014 12:32:24 Adult health examination 010489724 Z00.00 Discussed preventive medicine and screening strategies with patient and family. Continue Yearly evaluation and monitoring . See Out Patient Guide/Summ cricket for plan of care and to see what needed to be ordered to keep patient up to Date. Polyneurop athy due to diabetes mellitus 09207389 E11.42 Patient's sugars are not at goal. [...] of care. Increase her Metformin. Essential hypertension 30295822 I10 Blood pressure not controlled . Low Salt diet encouraged consider adjustment in medical therapy. Encourage patient to monitor blood pressure regularly. Discussed risks and benefits of therapy. See patient instructio ns for medical plan of care. Hyperlipidemia 59934273 E78.5 Discussed lipid profile. Discussed risks and benefits of therapy. Lipid at goal based on current overall risk factors. Continue current therapy. Menopausal symptom 96324 002 N95.1 Current medical problem uncontroll ed. [...] follow up and review this with her ACCOUNTING MANAGER as well her poor sleep secondary to her menopausal symptoms are probably having some affect on her anxiety and depression as well. She is also going to follow up with her counselor. She is to continue with her antidepres kelvin medication s. Psoriasis with arthropathy 04237709 L40.50 Stable. Improving flare. Continue current therapy/me dical plan of care. Recurrent major depressive episodes 871314979 F33.1 Discussed the diagnosis as well as [...] current issues. Anemia cau sed by medication 962435340 T50.905A follow up with rheumatolo gist. Will also check for iron deficiency and B12 deficiency .Discussed the diagnosis as well as the risks and benefits of therapy/ev aluation. Patient understand s the risks and benefits of declining or accepting treatment. Please see patient discharge instructio ns for any additional informatio n concerning medical plan of care. [id number] Stuart Morrison [facility] [address] [place] [address] 12/09/2014 08:28:06 12/09/2014 09:17:06 Psoriasis with arthropathy 18566281 L40.50 Patient experienci ramón on going arthralgia [...] sq q 14 days. Long-term drug therapy 133052258 Z79.899 Stop OTC NSAIDs, MTX. Next labs on follow up. Anemia 198013786 D64.9 microcytic , check iron studies, will call with results. [id number] Stuart Morrison MD [facility] [address] [place] [address] 03/10/2015 13:50:15 03/10/2015 14:12:34 Psoriasis with arthropathy 40854050 L40.50 No active psoriasis, no joint swelling or pain, patient able to function. Her labs are improved, anemia now better, she is off the MTX. Continue Humira sq every 14 days. Return 4 months. Long-term drug therapy 372005558 Z79.899 Tolerating medication s well, no adverse issues. Labs reviewed today. [id number] Kalpesh Kauffman MD [facility] [address] [place] [address] 05/26/2015 12:14:11 05/26/2015 15:34:46 Cough 09168867 R05 Present persistent productive coughing causing Lt TM trauma. Refers not allergic to prednisone but could cause her a manic episode of her Bipolar disorder, but she needs steroid now and refers she can control it with clonazepam . Currently no respirator y distress. Refers good tolerance to zithromax. Counseled about treatment and Breo sample given. Refer for ENT evaluation . [id number] Rakesh Clark Jr, MD [address] [address] 06/28/2015 17:32:48 06/28/2015 18:49:57 Recurrent major depressive episodes 138070970 F33.1 Discussed the diagnosis as well as [...] ty of current issues. Psoriasis with arthropathy 05895534 L40.50 Current medical problem uncontroll ed. Discussed the diagnosis as well as different treatment option, and the risks and benefits of therapy/ev aluation. Reviewed goals of treatment with patient. Patient understand s the risks and benefits of declining or accepting treatment. Please see patient discharge instructio ns for any additional informatio n concerning medical plan of care. Herniation of rectum into vagina 986331286 N81.6 She reports that she saw the [...] n concerning medical plan of care. Otalgia 72962675 H92.02 She was seen in the emergency room/[facility] for left ear pain with bleeding. [...] care. Polyneurop athy due to diabetes mellitus 02036744 E11.42 Patient's sugars are not at goal. [...] is under. Manic bipo lar I disorder 77579765 F31.10 Discussed the diagnosis as well as the risks and benefits of therapy/ev aluation. Patient understand s the risks and benefits of declining or accepting treatment. Please see patient discharge instructio ns for any additional informatio n concerning medical plan of care. 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 Patient understand s the risks and benefits of declining or accepting treatment. Please see patient discharge instructio ns for any additional informatio n concerning medical plan of care. Hyperlipidemia 81671276 E78.5 Discussed lipid profile. Discussed risks and benefits of therapy. Lipid at goal based on current overall risk factors. Continue current therapy. Essential hypertension 47712220 I10 Blood pressure not controlled . Low Salt diet encouraged consider adjustment in medical therapy. Encourage patient to monitor blood pressure regularly. Discussed risks and benefits of therapy. See patient instructio ns for medical plan of care. [id number] MD EBER Nunez [address] [place] [address] 07/08/2015 14:06:44 07/08/2015 14:43:00 Psoriasis with arthropathy 19884129 L40.50 Since last visit she has some [...] weeks for reevaluati on. Long-term drug therapy 147332457 Z79.899 Patient is tolerating current medication s well, not reporting any adverse effects from medication s. Lab results reviewed today with patient, no issues in regards to current medication s. Next labs with follow-up appointadiel Armando is screening 801407382 Z11.1 [id number] Rakesh Clark Jr, MD [address] [address] 08/01/2015 15:13:19 08/01/2015 17:12:48 Psoriasis with arthropathy 72512621 L40.50 Current medical problem uncontroll ed. Discussed the diagnosis as well as different treatment option, and the risks and benefits of therapy/ev aluation. Reviewed goals of treatment with patient. Patient understand s the risks and benefits of declining or accepting treatment. Please see patient discharge instructio ns for any additional informatio n concerning medical plan of care. Recurrent major depressive episodes 979052943 F33.1 Discussed the diagnosis as well as [...] issues. Polyneurop athy due to diabetes mellitus 88846930 E11.42 Patient's sugars are not at goal. [...] the Metformin. Manic bipo lar I disorder 16510975 F31.10 Discussed the diagnosis as well as the risks and benefits of therapy/ev aluation. Patient understand s the risks and benefits of declining or accepting treatment. Please see patient discharge instructio ns for any additional informatio n concerning medical plan of care. Hyperlipidemia 42158874 E78.5 Discussed lipid profile. Discussed risks and benefits of therapy. Lipid at goal based on current overall risk factors. Continue current therapy. Essential hypertension 82998921 I10 Blood pressure under good control. Continue medication s. Encourage patient to continue to monitor blood pressure regularly. [id number] JOSETTE Lowe [facility] [address] [place] [address] 08/26/2015 14:50:01 08/26/2015 15:25:29 Psoriasis with arthropathy 08675378 L40.50 Continue with Enbrel 50 mg subcutaneo us weekly, Sed Rate is 2 . Discussed with the patient to call the office with any further questions or concerns. -Return in 8 weeks for reevaluati on. Long-term drug therapy 141171094 Z79.899 Patient is tolerating current medication s well, not reporting any adverse effects from medication s. Next labs with follow-up appointmen bradford [id number] MD EBER Cobb Jr [address] [place] [address] 08/29/2015 14:43:51 08/29/2015 16:05:05 Polyneuropathy due to diabetes mellitus 57914213 E11.42 Patient's sugars are not at goal. [...] of Onglyza and Metformin. Psoriasis with arthropathy 40011791 L40.50 Discussed diagnosis as well as risks and benefits of therapy. Continue current therapy/me dical plan of care. Continue to follow at this time. Will check labs as appropriat e. Hyperlipidemia 91822123 E78.5 Discussed lipid profile. Lipid not at [...] therapy/me dical plan of care. Essential hypertension 30345345 I10 Stable. Controlled . Continue current therapy/me dical plan of care. Bipolar disorder 5011551 4 F31.74 Discussed diagnosis as well as risks and benefits of therapy. Continue current therapy/me dical plan of care. Continue to follow at this time. Will check labs as appropriat e. Sciatica 28846872 M54.30 Stable. Controlled . Continue current therapy/me dical plan of care. [id number] Kalpesh Kauffman MD [facility] [address] [place] [address] 10/19/2015 11:41:06 10/19/2015 13:20:33 Acute sinusitis 95215194 J01.90 Refers previous similar episodes. Already started [...] at this time. F/U Dr Clark. Cough 47212969 R05 X Rays done today present no acute findings. Cough associated to URT infection. Currently on treatment with Enbrel. [id number] Kalpesh Kauffman MD [facility] [address] [place] [address] 10/27/2015 15:43:16 10/31/2015 08:42:48 Cough 90334949 R05 Manic bipo lar I disorder 71057468 F31.10 Refer steroid treatment could trigger lexi but well control with short term treatment with Klonopin. Bronchitis 43489985 J40 Denies prednisone allergy but possibilit y that could trigger lexi. Patient with no improvemen t and signs of acute bronchitis . Labs done today WNL. Counseled about treatment and the need for short term low dose steroid treatment. Visit ER if symptoms worsen. F/U Dr Clark. [id number] Rakesh Clark Jr, MD [address] [place] [address] 11/07/2015 15:04:46 11/07/2015 16:37:33 Polyneuropathy due to diabetes mellitus 97439739 E11.42 She states that prior to moving to [place] she had been on 2400 mg of Gabapentin day for her neuropathy . She has tried the lower dose but her neuropathy continues to be extremely uncomforta ble. Will go ahead at this time and increase her to 600 mg 3 times a day and reviewed the workup that has been done on her in the past. Psoriasis with arthropathy 19775664 L40.50 Discussed diagnosis as well as risks and benefits of therapy. Continue current therapy/ma dical plan of care. Continue to follow at this time. Will check labs as appropriat e. Hyperlipidemia 20119125 E78.5 Discussed lipid profile. Discussed risks and benefits of therapy. Lipid at goal based on current overall risk factors. Continue current therapy. Depressive disorder 8736 8392 F32.2 Part of the manifestat ion of [...] concerning medical plan of care. Essential hypertension 34348968 I10 Stable. Controlled . Continue current therapy/me dical plan of care. Bipolar disorder 8602921 4 F31.11 I feel that her bipolar [...] ly will start her on Cymbalta. Sciatica 93077227 M54.30 Stable. Controlled . Continue current therapy/me dical plan of care. Peripheral neuropathic pain 284052061 M79.2 In reviewing her chart there does [...] combinatio n of all of the above. [id number] Rakesh Clark Jr, MD [address] [place] [address] 11/21/2015 17:48:37 11/22/2015 10:54:22 Polyneuropathy due to diabetes mellitus 77709876 E11.42 Will give her a prescripti on and trial of topical cream to see if this helps with her neuropathy .Discussed the diagnosis as well as the risks and benefits of therapy/ev aluation. Patient understand s the risks and benefits of declining or accepting treatment. Please see patient discharge instructio ns for any additional informatio n concerning medical plan of care. Bipolar disorder 8436733 4 F31.11 Stable. Controlled . Continue current therapy/me dical plan of care. Peripheral neuropathic pain 508749252 M79.2 Discussed the diagnosis as well as [...] labs as appropriat e. Psoriasis with arthropathy 53328070 L40.50 Discussed diagnosis as well as risks and benefits of therapy. Continue current therapy/me dical plan of care. Continue to follow at this time. Will check labs as appropriat e. Hyperlipidemia 19046593 E78.5 Discussed lipid profile. Discussed risks and benefits of therapy. Lipid at goal based on current overall risk factors. Continue current therapy. Essential hypertension 73655628 I10 Stable. Controlled . Continue current therapy/me dical plan of care. Sciatica 89423621 M54.30 Stable. Controlled . Continue current therapy/me dical plan of care. Urinary incontinence 165 822000 R32 Continues to be uncontroll ed. Will send the patient to see a neurologis t for further treatment. Iron defic iency anemia 32856527 D50.9 Current medical problem uncontroll ed. Discussed the diagnosis as well as different treatment option, and the risks and benefits of therapy/ev aluation. Reviewed goals of treatment with patient. Patient understand s the risks and benefits of declining or accepting treatment. Please see patient discharge instructio ns for any additional informatio n concerning medical plan of care. [id number] JOSETTE Lowe [address] [place] [address] 11/28/2015 15:04:01 11/28/2015 15:59:32 Psoriasis with arthropathy 55009603 L40.50 Continue with Enbrel 50 mg subcutaneo us weekly, Sed Rate is 7 . Discussed with the patient to call the office with any further questions or concerns. Call the office if you have any further questions or concerns. -Return in 4 months with labs Long-term drug therapy 666566180 Z79.899 Patient is tolerating current medication s well, not reporting any adverse effects from medication s. Next labs with follow-up appointmen mary. [id number] MD EBER Cobb Jr [address] [place] [address] 02/27/2016 10:00:53 02/27/2016 18:46:56 Bipolar disorder 93847903 F31.11 Stable. Controlled . Continue current therapy/me dical plan of care. Menopausal symptom 79732 002 N95.1 Current medical problem uncontroll ed. [...] follow up and review this with her ACCOUNTING MANAGER as well her poor sleep secondary to her menopausal symptoms are probably having some affect on her anxiety and depression as well. She is also going to follow up with her counselor. She is to continue with her antidepres kelvin medication s. Anemia 378408419 D64.9 Discussed the diagnosis as well as the risks and benefits of therapy/ev aluation. Patient understand s the risks and benefits of declining or accepting treatment. Please see patient discharge instructio ns for any additional informatio n concerning medical plan of care. Hyperlipidemia 33210026 E78.5 Discussed lipid profile. Discussed risks and benefits of therapy. Lipid at goal based on current overall risk factors. Continue current therapy. Polyneurop athy due to diabetes mellitus 44709745 E11.42 Will change the Onglyza to a different drug because of not being covered by the insurance. Discussed the diagnosis as well as the risks and benefits of therapy/ev aluation. Patient understand s the risks and benefits of declining or accepting treatment. Please see patient discharge instructio ns for any additional informatio n concerning medical plan of care. Peripheral neuropathic pain 557960422 M79.2 Discussed the diagnosis as well as the risks and benefits of therapy/ev aluation. Patient understand s the risks and benefits of declining or accepting treatment. Please see patient discharge instructio ns for any additional informatio n concerning medical plan of care. Urinary incontinence 165 521300 R32 Discussed diagnosis as well as risks and benefits of therapy. Continue current therapy/me dical plan of care. Continue to follow at this time. Will check labs as appropriat e. Iron defic iency anemia 19755682 D50.9 Current medical problem uncontroll ed. Discussed [...] labs as appropriat e. Psoriasis with arthropathy 96421067 L40.50 Discussed diagnosis as well as risks and benefits of therapy. Continue current therapy/me dical plan of care. Continue to follow at this time. Will check labs as appropriat e. Sciatica 34586069 M54.30 Stable. Controlled . Continue current therapy/me dical plan of care. Hypertensive disorder 38 520469 I10 Blood pressure under good control. Continue medication s. Encourage patient to continue to monitor blood pressure regularly. Complicati on due to diabetes mellitus 34417313 E11.8 [id number] JOSETTE Lowe [address] [place] [address] 04/02/2016 15:34:49 04/02/2016 16:24:06 Psoriasis with arthropathy 20021614 L40.50 controlled : no active psoriasis, joint tenderness or synovitis on exam today; Morning stiffness less than 1 hour with mild fatigue and no sleeping difficulti es. Patient is active and able to do her daily activities Continue with Enbrel 50 mg subcutaneo us weekly, Sed Rate is 11 and CRP was 0.8 . Return in 3 months with labs Long-term drug therapy 834213778 Z79.899 Patient is tolerating current medication s well, not reporting any adverse effects from medication s. Next labs with follow-up appointmen t. [id number] JOSETTE Lowe [facility] [address] [place] [address] 06/26/2016 13:12:08 06/26/2016 14:03:49 Psoriasis with arthropathy 46645665 L40.50 controlled : no active psoriasis, joint [...] with new Rheumatolo gist Long-term drug therapy 630376202 Z79.899 Patient is tolerating current medication s well, not reporting any adverse effects from medication s. Next labs with follow-up appointmen t. [id number] Rakesh Clark Jr, MD [address] [place] [address] 06/27/2016 08:49:08 07/04/2016 17:19:46 Bipolar disorder 17796408 F31.11 Stable. Controlled . Continue current therapy/me dical plan of care. Menopausal symptom 83254 002 N95.1 Discussed diagnosis as well as risks and benefits of therapy. Continue current therapy/me dical plan of care. Continue to follow at this time. Will check labs as appropriat e. Hyperlipidemia 83542517 E78.5 Discussed lipid profile. Discussed risks and benefits of therapy. Lipid at goal based on current overall risk factors. Continue current therapy. Polyneurop athy due to diabetes mellitus 54783735 E11.42 Doing well. Hemoglobin A1c stable. Reviewed current glycemic goals. Continue current treatment. Peripheral neuropathic pain 871730005 M79.2 Discussed diagnosis as well as risks and benefits of therapy. Continue current therapy/me dical plan of care. Continue to follow at this time. Will check labs as appropriat e. Urinary incontinence 165 723475 R32 Discussed diagnosis as well as risks and benefits of therapy. Continue current therapy/me dical plan of care. Continue to follow at this time. Will check labs as appropriat e. Iron defic iency anemia 22007328 D50.9 Current medical problem uncontroll ed. Discussed [...] labs as appropriat e. Psoriasis with arthropathy 09722594 L40.50 Discussed diagnosis as well as risks and benefits of therapy. Continue current therapy/me dical plan of care. Continue to follow at this time. Will check labs as appropriat e. Sciatica 92205040 M54.30 Stable. Controlled . Continue current therapy/me dical plan of care. Hypertensive disorder 38 529039 I10 Blood pressure under good control. Continue medication s. Encourage patient to continue to monitor blood pressure regularly. Adult [facility] examination 966557103 Z00.01 Welcome to Medicare Visit done today. Recurrent major depressive episodes 136831104 F33.1 Discussed the diagnosis as well as [...] current issues. Anemia cau sed by medication 904894775 T50.905A Discussed diagnosis as well as risks and benefits of therapy. Continue current therapy/me dical plan of care. Continue to follow at this time. Will check labs as appropriat e. Obesity 138350095 E66.9 Discussed the diagnosis as well as the risks and benefits of therapy/ev aluation. Patient understand s the risks and benefits of declining or accepting treatment. Please see patient discharge instructio ns for any additional informatio n concerning medical plan of care. 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 Patient understand s the risks and benefits of declining or accepting treatment. Please see patient discharge instructio ns for any additional informatio n concerning medical plan of care. Morbid obesity 344014042 E66.01 weight issues discussed and informatio n on weight loss given. needs follow up on weight control as scheduled. Education handout on diets given. Exercise counseling done. Will arrange referral for dietitian, nutritioni st, Physical/o ccupationa l therapy as needed or desired. Also will consider pharmaceut ical and supplement al interventi ons Body mass index 40+ - severely obese 219644723 Z68.41 BMI 40.0-44.9. See Morbid Obesity above for details. Herniation of rectum into vagina 970817334 N81.6 She reports that she saw the [...] care. Gastro-eso phageal reflux disease with esophagitis 740560421 K21.0 Discussed diagnosis as well as risks and benefits of therapy. Continue current therapy/me dical plan of care. Continue to follow at this time. Will check labs as appropriat e. Fibromyalgia 326172125 M 79.7 Discussed diagnosis as well as [...] Name 04/02/2016 1 [place] Kelly Peacock [id number] Kelly Juan 05/29/[address] [facility] (MEDICARE REPLACEMENT HMO) [id number] Kelly Peacock [id number] Kelly Ann Juan 04/04/2016 2 [place] [facility] [employer] Kelly Juarez Drake [id number] Kelly Ann Juan 12/13/2015 1 [facility] [id number] Ezra Rodriguez [id number] Kelly Ann Juan 02/17/2016 1 [facility] (O) 78962 Kelly Peacock [id number] Kelly Ann Juan 07/08/2015 [facility] laurie Juan 09/26/2013 [facility] Kelly Juarez Drake 12/13/2015 1 [facility] (O) 47093 Ezra Juan [id number] Kellyann Juan Notes Date Note Type Note Provider [...] discussed during her visit today JOSETTE Lowe [address] [facility] [address], [place], [address], [facility], [facility] 11/28/2015 16:08:29 7 text/html ArthritisReported bypatient.Reason [...] he coming unbearable. Rakesh Clark Jr, MD [address], [place], [address], [employer] 03/19/2016 01:38:55 7 text/html Rheumatology GeneralReported bypatient.Reason [...] during her visit today JOSETTE Lowe [address], [place], [address], [employer] 04/02/2016 16:29:19 7 text/html Rheumatology GeneralReported bypatient.Reason [...] her visit today, she is relocating up [place]. JOSETTE Lowe [address], [place], [address], [facility] [employer] 06/26/2016 14:31:24 7 text/html ArthritisReported bypatient.Reason for [...] past the knee Rakesh Clark Jr, MD [address] [facility] [address], [place], [address], [facility], [facility] 07/11/2016 17:09:31 OBGyn Episode No OBEpisode recorded.
== END 2024-08-25 14:31 | disposition home or self-care (01) ==
PROVIDERS: PCP Internal Medicine; Visit Provider Physician Assistant
DX: Z13.9 Encounter for screening, unspecified (principal); N30.01 Acute cystitis with hematuria

== ENCOUNTER 2024-08-26 12:37 | Outpatient (REF) | payer MEDICARE, MEDICAID, SELFPAY ==
--- OUTSIDE RECORDS SUMMARY | 2024-08-26 13:31 | XMS_ITS | Encounter Summary ---
Author Organization [facility] Address [address] [place] [address] Care Team Providers Care Electrical/Instrument Technician Name Role Phone Almaz Billy MD Primary Care Provider [phone] Encounter Details Date Type Department Care Team (Latest Contact Info) Description 01/14/2024 Lab Requisition [facility] - Main Lab [address] [facility] [place] [id number] Rachel Child MD [address] [address] Encounter for gynecological examination (general) [...] or malignancy 01/16/2024 3:49 PM EST [facility]) [facility] General Categorization Negative 01/16/2024 3:[address] [facility] Specimen Adequacy Satisfactory for evaluation 01/16/2024 3:[address] [facility] Pap Methodology Liquid Based Pap Test 01/16/2024 3:[address] [facility] Disclaimer The Pap test is a screening test which carries an inherent false negative rate. These test results should be correlated with the patient's clinical findings and history. This Pap test was processed using an automated screening system. Technical cytopathology services provided by [facility], at [address] [place] [address] (CLIA # [id number]/Abhishek Ayala MD, Distribution Center Supervisor.) 01/16/2024 3:[address] [facility] Console Pap Interpretation Reported 01/16/2024 3:[address] [facility] Brushing/Spatula Vaginal structure / Unknown 01/13/2024 01/14/2024 9:46 AM EST us Rachel Child MD LAB CYTOLOGY ORDERABLES Final Result [facility] [address] [place] [address], documented in this encounter Visit Diagnoses Diagnosis Encounter for gynecological examination (general) (routine) without abnormal findings documented in this encounter Additional Health Concerns Infection Onset Date Last Indicated Resolved Time C. difficile Rule-Out 02/06/2024 02/06/20242023 10:20 AM EST Gastrointestinal Rule-Out 02/06/2024 02/06/2024 11:41 AM EST documented as of this encounter Care Teams Electrical/Instrument Technician Relationship Specialty Start Date End Date Almaz Billy MD PCP - General Internal Medicine 01/29/24 documented as of this encounter
== END 2024-08-26 12:38 | disposition home or self-care (01) ==
LOC: HO.LNP 12:37
PROVIDERS: Visit Provider Physician Assistant
DX: Z13.89 Encounter for screening for other disorder (principal)

== ENCOUNTER 2024-09-28 14:43 | Outpatient (REF) | payer MEDICARE, MEDICAID, SELFPAY ==
--- OUTSIDE RECORDS SUMMARY | 2024-09-28 15:27 | XMS_ITS | Encounter Summary ---
Author Organization [facility] Address [address] [place] [address] Care Team Providers Care Rock Star Name Role Phone Almaz Billy MD Primary Care Provider [phone] Encounter Details Date Type Department Care Team (Latest Contact Info) Description 01/14/2024 Lab Requisition [facility] - Main Lab [address] [facility] [place] [address] Rachel Child MD [address] [address] Encounter for gynecological examination (general) [...] lesion or malignancy 01/16/2024 3:49 PM EST [facility] General Categorization Negative 01/16/2024 3:49 PM [facility] Specimen Adequacy Satisfactory for evaluation 01/16/2024 3:49 PM [facility] Pap Methodology Liquid Based Pap Test 01/16/2024 3:49 PM [facility] Disclaimer The Pap test is a screening test which carries an inherent false negative rate. These test results should be correlated with the patient's clinical findings and history. This Pap test was processed using an automated screening system. Technical cytopathology services provided by [facility], at [address] [place] [address] (CLIA # [id number]/Abhishek Ayala MD, Cat Sitter.) 01/16/2024 3:49 PM [facility] Console Pap Interpretation Reported 01/16/2024 3:49 PM [facility] Brushing/Spatula Vaginal structure / Unknown 01/13/2024 01/14/2024 9:46 AM EST us Rachel Child MD LAB CYTOLOGY ORDERABLES Final Result [facility] [address] [place] [address], documented in this encounter Visit Diagnoses Diagnosis Encounter for gynecological examination (general) (routine) without abnormal findings documented in this encounter Additional Health Concerns Infection Onset Date Last Indicated Resolved Time C. difficile Rule-Out 02/06/2024 02/06/20242023 10:20 AM EST Gastrointestinal Rule-Out 02/06/2024 02/06/2024 11:41 AM EST documented as of this encounter Care Teams Rock Star Relationship Specialty Start Date End Date Almaz Billy MD PCP - General Internal Medicine 01/29/24 documented as of this encounter
[2024-09-28 16:48] LABS: MANUAL DIFF FLAG NO
[2024-09-28 16:56] LABS: Hematocrit 43.2 % (37.0-47.0); Hemoglobin 14.3 g/dl (12.0-16.0); Imm Gran Abs Auto 0.03 X10*3/uL (0.00-0.03); Imm Gran Pct Auto 0.4 % (0.0-0.4); Lymphocytes Absolute Auto 1.4 X10*3/uL (1.2-4.9); Mean Corpuscular HGB Conc 33.1 g/dl (31.0-35.0); Mean Corpuscular Hemoglobin 29.5 pg (27.0-33.0); Mean Corpuscular Volume 89.1 fL (80.0-98.0); NRBC Abs Auto 0.000 X10*3/uL (0.0-0.012); NRBC Pct Auto 0.0 /100WBC (0.0-0.2); Platelet Count 249 X10*3/uL (160-400); Red Blood Count 4.85 X10*6/uL (4.20-5.50); White Blood Count 8.2 X10*3/uL (4.8-10.8)
[2024-09-28 17:06] LABS: Alanine Aminotransferase 31 U/L (0-31); Albumin Level 4.1 g/dL (3.5-5.0); Alkaline Phosphatase 83 U/L (39-117); Anion Gap 14 (12-20); Aspartate Amino Transferase 40 U/L (5-31); Blood Urea Nitrogen 17 mg/dL (9-16); Calcium 9.5 mg/dL (8.4-10.2); Carbon Dioxide 27 mmol/L (22-29); Chloride 105 mmol/L (96-108); Cholesterol 169 mg/dL (<200); Estimated Glomerular Filt Rate 59; HDL Cholesterol 49 mg/dL (>40); Potassium 4.3 mmol/L (3.3-5.1); Sodium 142 mmol/L (135-145); Total Protein 6.7 g/dL (6.5-8.0); Triglycerides 191 mg/dL (<150)
[2024-09-28 17:09] LABS: Hemoglobin A1C 174.4359 umol/L; Total Hemoglobin (HGBA1C) 3786.0268 umol/L
== END 2024-09-28 14:44 | disposition home or self-care (01) ==
LOC: HO.HMGCLDS 14:43
PROVIDERS: PCP Internal Medicine; Visit Provider Internal Medicine
DX: Z00.00 Encounter for general adult medical examination without abnormal findings (principal); E11.9 Type 2 diabetes mellitus without complications; I10 Essential (primary) hypertension; E78.5 Hyperlipidemia, unspecified
CPT/HCPCS: 36415; 80053; 80061; 83036; 85025

== ENCOUNTER 2024-10-13 12:59 | Outpatient (REF) | payer MEDICARE, MEDICAID, SELFPAY ==
--- NOTE | ~2024-10-13 | XR_ITS ---
EXAMINATION: XR CHEST CLINICAL INFORMATION: R05.1 - Acute cough COMPARISON: April 13, 2023 TECHNIQUE: 2 views of the chest were obtained. FINDINGS: No significant abnormality is noted involving the heart, lungs, mediastinum, bony thorax or soft tissues. XR/XR chest 2V IMPRESSION: No acute disease Electronically signed by: Sven Dowling MD 10/13/2024 03:00 PM EDT RP
== END 2024-10-13 13:00 | disposition home or self-care (01) ==
LOC: HO.HMGCX 12:59
PROVIDERS: PCP Internal Medicine; Visit Provider Internal Medicine
DX: R05.1 Acute cough (principal); I10 Essential (primary) hypertension; E11.9 Type 2 diabetes mellitus without complications; Z79.899 Other long term (current) drug therapy; F31.9 Bipolar disorder, unspecified
CPT/HCPCS: 71046; 96127; 99212

== ENCOUNTER 2024-10-13 12:59 | Outpatient (AMB) | payer MEDICARE, MEDICAID, SELFPAY ==
[2024-10-13 13:34] VITALS: BP 118/80; PULSE 96; RESP 19; TEMP 36.7; O2SAT 97; BMI 28.9
--- NOTE | 2024-10-13 13:34 | A.OFFPC_ITS ---
Vital Signs 10/13/24 13:34 Height 5 ft 3 in Weight 163 lb BMI 28.9 BP 118/80 Blood Pressure Location Lt brachial Position Sitting Respiration 19 Pulse 96 Pulse Source Pulse Oximeter Temp 98.1 F Temp Source Oral Pulse Oximetry (%) 97 Oxygen Delivery Method Room Air Intake Visit Reasons: 4 months F/U, resched Intake Note: Pt is here today for 4 months follow up visit. Allergies amlodipine (From Norvasc) Allergy (Unknown, Verified 10/13/24 13:45) Anaphylaxis chlorthalidone Allergy (Unknown, Verified 10/13/24 13:45) Anaphylaxis doxycycline Allergy (Unknown, Verified 10/13/24 13:45) Anaphylaxis erythromycin base Allergy (Unknown, Verified 10/13/24 13:45) Anaphylaxis loracarbef (From Lorabid) Allergy (Unknown, Verified 10/13/24 13:45) Anaphylaxis prednisone Allergy (Unknown, Verified 10/13/24 13:45) manic Sulfa (Sulfonamide Antibiotics) Allergy (Unknown, Verified 10/13/24 13:45) anaphylaxis sulfamethoxazole (From Bactrim) Allergy (Unknown, Verified 10/13/24 13:45) Anaphylaxis trimethoprim (From Bactrim) Allergy (Unknown, Verified 10/13/24 13:45) Anaphylaxis Lorabid Allergy (Unknown, Uncoded 10/13/24 13:45) anaphylaxis Medication List - Last Reconciled 10/13/24 by Almaz Billy MD albuterol sulfate 0.63 mg (3 mL) inhalation Q6H albuterol sulfate 90 mcg/actuation 2 puffs inhalation Q6H PRN atorvastatin 40 mg PO DAILY Breo Ellipta 100-25 mcg/dose (fluticasone furoate-vilanterol) 1 inh inhalation DAILY NS bupropion HCl XL 150 mg PO DAILY buspirone mg PO BID clonazepam mg PO PRN nebulizers Nebulizer and supplies omeprazole 20 mg PO ONCE secukinumab 150 mg subcut .2 times a month semaglutide (Ozempic) 0.5 mg (0.736 mL) subcut QWEEK tizanidine 4 mg PO TID PRN trazodone 200 mg PO DAILY Tobacco use date assessed: 10/13/24 Fall risk assessment: No Falls in past year Last assessed Fall Risk: 10/13/24 Dental Screening Dental Screen Date: 10/13/24 HPI 4 months F/U, resched HPI Details Pt presents for f/u of DM 2, hyperlipid, COPD, chronic depression stable on meds.Pt c/o persistent cough for 6 months, no sputum, pleurisy, fever, night sweats. Pt tried Breo 100 mcg without relief. [facility] Medical History (Updated 10/13/24 @ 21:44 by Almaz Billy MD) Cervicalgia Asthma Fall Annual physical exam IBS (irritable bowel syndrome) Mammogram normal Fatty liver Bipolar disorder Exercise-induced asthma Hyperlipemia HTN (hypertension) Neuropathy Obesity Diabetes Psoriatic arthritis Surgical History History of bladder surgery H/O colonoscopy History of esophagogastroduodenoscopy (EGD) Hx of cholecystectomy History of total abdominal hysterectomy Family History Father No problems noted. Mother No problems noted. Sister No problems noted. Sister No problems noted. Son Mental health disorder Substance use disorder Son No problems noted. Daughter No problems noted. Social History Housing: House Alcohol intake: current Alcohol intake frequency: holidays/special occasions only Patient Tobacco Use Status: Former Tobacco user e-Cigarette/Vaping Use: Never Used service: No Current occupational status: disabled Cognitive needs: No Hearing needs: No Vision needs: Yes Questionnaire Thrive Questionnaire Date Thrive assessed: 10/13/24 I am a: Patient What is your living situation today?: I have a steady place to live Within the past 12 months, did the food you bought not last and you didn't have the money to get more?: Never true Within the past 12 months, did you worry whether your food would run out before you got money to buy more?: Never true Do you have trouble paying for medicines?: No Do you have trouble getting transportation to medical appointments?: No Do you have trouble paying your heating and electricity bill?: No Do you have trouble taking care of your child, family member or friend?: No Do you have trouble with day-to-day activities such as bathing, preparing meals, shopping, managing finances, etc.?: No Are you currently unemployed and looking for a job?: No Are you interested in more education?: No Please select the resources that you would like help with: None Currently or been in a relationship where the following occur: No concerns reported THRIVE Score: 0 AUDIT C Alcohol Use Questionnaire (AUDIT-C) 1. How often do you have a drink containing alcohol?: Never 3. How often do you have six or more drinks on one occasion?: Never Total Score: 0 KRISH-7 AMB Questionnaire KRISH-7 Date KRISH - 7 assessed: 10/13/24 Feeling nervous, anxious, or on edge: 1 = Several days Not being able to stop or control worryin = Several days Worrying too much about different things: 1 = Several days Trouble relaxin = Not at all Being so restless that it is hard to sit still: 0 = Not at all Becoming easily annoyed or irritable: 0 = Not at all Feeling afraid as if something awful might happen: 0 = Not at all Total KRISH-7 score (0-4 normal; 5-9 mild; 10-14 moderate; 15-21 severe): 3 Source: Developed by Drs. Chemo Sterling, Kathryn Carey, Santi Watson and colleagues, with an educational miguel from [employer]. KRISH-7 Assessment Billing KRISH-7 Assessment Tool: KRISH-7 Assessment 33040 Review of Systems Const All systems reviewed & are unremarkable except as noted in HPI and below Eyes Reports no additional complaints ENT Reports no additional complaints Card Reports no additional complaints Resp Reports no additional complaints GI Reports no additional complaints Reports no additional complaints Physical exam (Primary Care) Vital Signs: Last Vital Signs Temp 98.1 F 10/13/24 13:34 Pulse 96 10/13/24 13:34 Resp 19 10/13/24 13:34 BP 118/80 10/13/24 13:34 Pulse Ox 97 10/13/24 13:34 Oxygen Delivery Method Room Air 10/13/24 13:34 BMI result Body Mass Index 28.9 Tobacco/Smoking Status: Tobacco use Status Tobacco use date assessed 10/13/24 10/13/24 13:52 Patient Tobacco Use Status Former Tobacco user 10/13/24 13:36 e-Cigarette/Vaping Use Never Used 10/13/24 13:36 Thrive Assessment: Date of Thrive Assessment Date Thrive assessed 10/13/24 10/13/24 13:52 Currently or been in a relationship where the following occur: No concerns reported Const General: no acute distress HENMT Head: Yes normal to inspection Face and sinus: Yes normal facial exam Eyes General: appearance normal, both eyes and all related structures Neck Neck: Yes supple Resp Effort & Inspection: normal respiratory effort Auscultation: clear to auscultation bilaterally Cardio Rhythm: regular rhythm Heart sounds: S1 normal heart sound present and S2 normal heart sound present GI Inspection: Yes normal to inspection Palpation (GI): Soft to palpation Percussion: Yes normal to percussion Auscultation: normal bowel sounds Coding Level of Care Code Est Pt Level 4 (85283) Diagnoses Acute cough R05.1 Cough type: acute HTN (hypertension) I10 Diabetes E11.9 Bipolar disorder F31.9 Additional Codes KRISH-7 Assessment Billing - KRISH-7 Assessment Tool: KRISH-7 Assessment 15984 ([id number]) Assessment & Plan Assessment & Plan (1) Cough: Comment: chronic, started on Breo 100 mcg, no improvement, CXR negative 10/2024 Code(s): R05.9 - Cough, unspecified Category: Medical Qualifiers: Cough type: acute Qualified Code(s): R05.1 - Acute cough Plan: start Claritin, Astelin spray, for postnasal drip, increase Breo to 200 mcg, f/u 3 weeks (2) HTN (hypertension): Comment: BP less than 130/80, patient has stopped taking blood pressure medications Code(s): I10 - Essential (primary) hypertension Category: Medical Plan: cont meds (3) Diabetes: Comment: A1C less than 7 Code(s): E11.9 - Type 2 diabetes mellitus without complications Category: Medical Plan: cont ADA meds, check labs (4) Bipolar disorder: Comment: f/u psychiatry Code(s): F31.9 - Bipolar disorder, unspecified Category: Medical Plan: cont meds Medications: New loratadine 10 mg PO DAILY 90 tabs 0RF azelastine administer into each nostril 137 mcg (0.137 mL) intranasal BID 30 mL 1RF Breo Ellipta 200-25 mcg/dose (fluticasone furoate-vilanterol) 1 inh inhalation DAILY 60 ea 3RF NS Discontinued Breo Ellipta 100-25 mcg/dose (fluticasone furoate-vilanterol) Discontinued Reason: Doctor's Order 1 inh inhalation DAILY 60 ea 3RF NS
--- OUTSIDE RECORDS SUMMARY | 2024-10-13 14:20 | XMS_ITS | Encounter Summary ---
Author Organization [facility] Address [address] [place] [address] Care Team Providers Care Creative Coordinator Name Role Phone Almaz Billy MD Primary Care Provider [phone] Encounter Details Date Type Department Care Team (Latest Contact Info) Description 01/14/[address] [facility] [address] [facility] [employer] [place] [address] Rachel Child MD [address] [address] Encounter for gynecological examination (general) [...] lesion or malignancy 01/16/2024 3:49 PM EST [facility] General Categorization Negative 01/16/2024 3:49 PM [facility] Specimen Adequacy Satisfactory for evaluation 01/16/2024 3:49 PM [facility] Pap Methodology Liquid Based Pap Test 01/16/2024 3:49 PM [facility] Disclaimer The Pap test is a screening test which carries an inherent false negative rate. These test results should be correlated with the patient's clinical findings and history. This Pap test was processed using an automated screening system. Technical cytopathology services provided by [facility], at [address] [place] [address] (CLIA # [id number]/Abhishek Ayala MD, Director Call.) 01/16/2024 3:49 PM [facility] Console Pap Interpretation Reported 01/16/2024 3:49 PM [facility] Brushing/Spatula Vaginal structure / Unknown 01/13/2024 01/14/2024 9:46 AM EST us Rachel Child MD LAB CYTOLOGY ORDERABLES Final Result [facility] [address] [place] [address], documented in this encounter Visit Diagnoses Diagnosis Encounter for gynecological examination (general) (routine) without abnormal findings documented in this encounter Additional Health Concerns Infection Onset Date Last Indicated Resolved Time C. difficile Rule-Out 02/06/2024 02/06/20242023 10:20 AM EST Gastrointestinal Rule-Out 02/06/2024 02/06/2024 11:41 AM EST documented as of this encounter Care Teams Creative Coordinator Relationship Specialty Start Date End Date Almaz Billy MD PCP - General Internal Medicine 01/29/24 documented as of this encounter
--- OUTSIDE RECORDS SUMMARY | 2024-10-13 14:20 | XMS_ITS | Clinical Summary ---
Author Organization [facility] [address] [facility] Address [address] [place] [address] Phone Care Team Providers Care Experimental Assembler Name Role Phone Almaz Billy MD Primary Care Provider [phone] Allergies Active Allergy Reactions Criticality Noted Date [...] 1 (one) time each day. 2 Active scdcqmcc-anfc-o grch-crfi-efpfg 100 mg-150 mg- 50 mg-150 mg capsule Take 500 mg by mouth. 3 Active acetaminophen (TylenoL) 325 mg capsule Take 2 capsules (650 mg total) by mouth. 3 Active Active Problems Problem Noted Date Diagnosed Date Adenomatous polyp of colon 01/29/2024 Irritable bowel syndrome with diarrhea 4 Psoriatic arthritis ([facility] V24, [facility] V28) 1 03/31/2023 S/P partial hysterectomy 01/29/2024 Diabetes ([facility] V24, [facility] V28) 01/29/2024 Asthma 01/29/2024 Gastroesophageal reflux disease [...] 11/25/2019 09/30/2019 Cholesterol Screening (Lipid Panel) 01/14/2022 Hepatitis C Screening 01/14/2022 Medicare Annual Wellness Visit 01/14/2022 Social Influencers of Health Screening 01/14/2022 Falls Risk Assessment 08/31/2023 Diabetes: Annual Urine Albumin-Creatinine Ratio (uACR) 01/14/2024 Diabetes: Blood Sugar Control Test (HGBA1C) 01/14/2024 Depression Screening 02/12/2024 COVID-19 Vaccine (9 - Moderna risk season) 2024 12/20/2023, 12/22/2022, 11/17/2021, Additional history exists Influenza Vaccine (#1) 2024 , 12/22/2022, 11/17/2021, Additional history exists Diabetes: Annual GFR (Glomerular Filtration Rate) 01/28/2025 01/29/2024 Hypertension/CHF/CAD Annual BMP Blood Test 01/28/2025 01/29/2024 Osteoporosis Screening (Bone Density Screening) 05/12/2026 05/12/2016, 05/12/2016 DTaP,Tdap,and Td Vaccines (4 - Td or Tdap) 07/05/2030 07/05/2020, 07/21/2008, 09/10/2005 Colorectal Cancer Screening: Colonoscopy 01/29/2034 01/30/2024, 10/29/2017 Pneumococcal Vaccine: 50+ Years Completed 03/09/2023, 11/27/2016, 02/11/2009, Additional history exists RSV Immunization Adult Patients Completed 03/09/2023 HIB Vaccines Aged Out No longer eligi [...] loss Nausea and vomiting, unspecified vomiting type from Last 3 Months or Most Recently Relevant to Health Maintenance Results * COLONOSCOPY (01/30/2024 3:48 PM EST) Anatomical Region Laterality Modality Endoscopy us Historical Provider GI~PROCEDURE ORDERABLES F inal Result * Comprehensive metabolic panel (01/29/2024 2:51 PM EST) Sodium 141 133 - 145 mmol/L LAB CHEMISTRY METHOD 01/29/2024 5:27 PM [facility] Potassium 4.7 3.5 - 5.5 mmol/L LAB CHEMISTRY METHOD 01/29/2024 5:27 PM [facility] Chloride 106 96 - 110 mmol/L LAB CHEMISTRY METHOD 01/29/2024 5:27 PM [facility] CO2 26 21 - 32 mmol/L LAB CHEMISTRY METHOD 01/29/2024 5:27 PM [facility] Anion Gap 9 3 - 11 LAB CHEMISTRY METHOD 01/29/2024 5:27 PM [facility] Glucose 95 70 - 100 mg/dL LAB CHEMISTRY METHOD 01/29/2024 5:27 PM [facility] BUN 24 5 - 25 mg/dL LAB CHEMISTRY METHOD 01/29/2024 5:27 PM [facility] Creatinine 0.83 0.50 - 1.10 mg/dL LAB CHEMISTRY METHOD 01/29/2024 5:27 PM [facility] eGFR 78 >=60 mL/min/1. 73m2 LAB CHEMISTRY METHOD 01/29/2024 5:27 PM [facility] Comment:Calculation based on the Chronic Kidney Disease Epidemiology Collaboration (CKD-EPI) equation refit without adjustment for race. BUN/Creatinine Ratio 28.9 LAB CHEMISTRY METHOD 01/29/2024 5:27 PM [facility] Calcium 10.2 8.5 - 10.5 mg/dL LAB CHEMISTRY METHOD 01/29/2024 5:27 PM [facility] AST (SGOT) 13 10 - 42 unit/L LAB CHEMISTRY METHOD 01/29/2024 5:27 PM [facility] ALT (SGPT) 27 10 - 60 unit/L LAB CHEMISTRY METHOD 01/29/2024 5:27 PM [facility] Alkaline Phosphatase 58 42 - 121 unit/L LAB CHEMISTRY METHOD 01/29/2024 5:27 PM [facility] Total Protein 6.8 6.0 - 8.0 g/dL LAB CHEMISTRY METHOD 01/29/2024 5:27 PM [facility] Albumin 4.0 3.2 - 5.0 g/dL LAB CHEMISTRY METHOD 01/29/2024 5:27 PM [facility] Total Bilirubin 0.6 0.0 - 1.4 mg/dL LAB CHEMISTRY METHOD 01/29/2024 5:27 PM [facility] Blood Venous blood specimen / Unknown Venipuncture / Unknown 01/29/2024 2:51 PM EST 01/29/2024 4:16 PM EST [facility] BLOOD ORDERABLES Final R esult [facility] [address] [place] [address], [place] [phone] from Last 3 Months or Most Recently Relevant to Health Maintenance Insurance MEDICARE [place]ICA[place] - [place] Care Teams Experimental Assembler Relationship Specialty Start Date End Date Almaz Billy MD PCP - General Internal Medicine 01/29/24
== END 2024-10-13 14:33 | disposition home or self-care (01) ==
LOC: HO.HMCC 13:00
PROVIDERS: PCP Internal Medicine; Visit Provider Internal Medicine
DX: R05.1 Acute cough (principal); I10 Essential (primary) hypertension; E11.9 Type 2 diabetes mellitus without complications; F31.9 Bipolar disorder, unspecified

== ENCOUNTER → 2024-10-13 14:37 | Outpatient (BNV) | payer MEDICARE, MEDICAID, SELFPAY | PROVIDERS: PCP Internal Medicine; Visit Provider Radiology Diagnostic Radiology | DX: R05.1 Acute cough (principal) | CPT/HCPCS: 71046 ==